=== PATIENT | male | born 1945 | race Caucasian/White ===

== ENCOUNTER 2023-01-03 10:04 | Outpatient (RCR) | payer MEDICARE, OTHER, SELFPAY ==
[2023-01-03 10:21] VITALS: BP 150/96; PULSE 63; RESP 16; TEMP 36.1; BMI 30.1
--- NOTE | 2023-01-03 10:56 | HP.PCM_ITS ---
History of Present Illness Date of Service: 01/03/23 Chief Complaint: Right foot ulceration History of Wound: Mr. Ma is a 77-year-old male with a past medical history of coronary artery disease and clean out to the right lower extremity by an outside provider. Presenting today to the wound care center [facility] with a chief complaint of right plantar foot ulceration. Patient states he had a callus to the area and then noticed drainage to his sock and now has a full- thickness ulceration. He was seen by urgent care and placed on 2 antibiotics based on culture and sensitivity. He is unfamiliar with what antibiotics he is on. He denies trauma. Denies constitutional symptoms. No other pedal complaints at this time. Progress of Wound: Mr. Ma is a 77-year-old male presenting to the wound care center today with a chief complaint of full-thickness ulceration to the right foot. Patient is unsure how the wound happened. He is on 2 antibiotics by urgent care physician. He denies treatment. Denies trauma. Denies constitutional symptoms. No other pedal complaints at this time. [facility] Home Medications albuterol 90 mcg/actuation aerosol inhaler mcg inhalation .2 puffs PRN SOB 01/03/23 [History Last Taken Unknown] amlodipine 5 mg tablet (Norvasc) 5 mg PO DAILY 01/03/23 [History Last Taken Unknown] apple cider vinegar 01/03/23 [History Last Taken Unknown] aspirin 81 mg tablet,delayed release (Adult Low Dose Aspirin) 81 mg PO DAILY 01/03/23 [History Last Taken Unknown] carvedilol 3.125 mg tablet 3.125 mg PO BID 01/03/23 [History Last Taken Unknown] cholecalciferol (vitamin D3) 1,250 mcg (50,000 unit) capsule 1,250 mcg PO QWEEK 01/03/23 [History Last Taken Unknown] dutasteride 0.5 mg capsule (Avodart) 0.5 mg PO DAILY 01/03/23 [History Last Taken Unknown] fluticasone propionate 115 mcg-salmeterol 21 mcg/actuation HFA inhaler (Advair HFA) 2 inh inhalation DAILY 01/03/23 [History Last Taken Unknown] furosemide 40 mg tablet 40 mg PO QODAY 01/03/23 [History Last Taken Unknown] pantoprazole 40 mg tablet,delayed release 40 mg PO DAILY 01/03/23 [History Last Taken Unknown] potassium chloride 10 mEq tablet,extended release(part/cryst) (Klor-Con M) 10 meq PO DAILY 01/03/23 [History Last Taken Unknown] ropinirole 2 mg tablet 2 mg PO BID 01/03/23 [History Last Taken Unknown] sour vasquez extract 1,000 mg capsule (Tart Vasquez Extract) mg PO 01/03/23 [History Last Taken Unknown] spironolactone 25 mg tablet (Aldactone) 25 mg PO DAILY 01/03/23 [History Last Taken Unknown] tamsulosin 0.4 mg capsule (Flomax) 0.4 mg PO DAILY 01/03/23 [History Last Taken Unknown] tiotropium bromide 18 mcg capsule with inhalation device (Spiriva with HandiHaler) 1 cap inhalation DAILY 01/03/23 [History Last Taken Unknown] valsartan 320 mg tablet (Diovan) 320 mg PO DAILY 01/03/23 [History Last Taken Unknown] Vital Signs Vital Signs Vital Signs: 01/03/23 10:21 Temperature 97.0 F L Temperature Source Temporal Pulse Rate 63 Respiratory Rate 16 Blood Pressure 150/96 H Blood Pressure Mean 114 Blood Pressure Source Monitor Blood Pressure Position Semi-Fowlers Blood Pressure Location Right Arm Weight Weight: 95.254 kg Body Mass Index (BMI) 30.1 Physical Exam Narrative Vascular: DP and PT pulses are monophasic on Doppler. CFT is brisk. Skin temperature is warm to warm from proximal ankle to distal digits. Not pitting edema is appreciated to the right lower extremity. Neurological: Light touch intact. Patient does not respond to painful stimuli. Protective station is diminished. Dermatological: Full-thickness ulceration appreciated to the subfifth metatarsal head measuring 1.5 x 2.0 x 0.3 cm. Wound base is granular in nature. No probe to bone. Light malodor is appreciated. No erythema or proximal streaking. Excisional debridement down to and including subcutaneous tissue with #15 blade to the subfifth metatarsal ulceration without incident. Predebridement joseph surement is 1.2 x 1.8 x 0.2 cm. Postdebridement measurement is 1.5 x 2.0 x 0.3 cm. Sanguinous drainage after debridement. Musculoskeletal: Strength is 5 and 5 in all quadrants. No pain on palpation to the full-thickness ulceration on the right foot. No pain with calf compression. Debridement Note Debridement Note Debridement Free Text: Excisional debridement down to and including subcutaneous tissue with #15 blade to the subfifth metatarsal ulceration without incident. Predebridement measurement is 1.2 x 1.8 x 0.2 cm. Postdebridement measurement is 1.5 x 2.0 x 0.3 cm. Sanguinous drainage after debridement. Post-Debridement Measurements and Additional Note: Post-Debridement Measurements/Treatment - Nurse 1 - General Ulcer Assessment Start: 01/03/23 10:20 Freq: Status: Active Protocol: [email or web address] Activity Type Activity Date Activity User E-sign Co-sign Detail Recorded Client Recorded Date Recorded By Document 01/03/23 10:21 NRL Desktop 01/03/23 10:39 NRL 01/03/23 10:21 - Today's Visit Information Type of service Initial Visit Arrival Mode Ambulatory Patient Identification Verified (Name & Yes ) Height and Weight Height 5 ft 10 in Weight 95.254 kg Weight in Pounds 210.0 lbs Weight Measurement Method Estimated by Patient Body Mass Index (BMI) 30.1 BMI Classification Obese BSA - Elysia 2.13 Vital Signs Temperature (97.8 F-99.1 F) 97.0 F L Temperature Source Temporal Pulse Rate (60-100) 63 Pulse Location Monitor Respiratory Rate (12-18) 16 Respiratory rate source Observation Blood Pressure (90/60-120/80) 150/96 H Blood Pressure Mean 114 Source Monitor Position Semi-Fowlers Blood Pressure Location Right Arm History Since Last Visit- (Skip if this is Patient's initial visit) Left Footwear Regular Shoe Right Footwear Regular Shoe Pain Scale: 0-10 Numeric Is Patient Pain Free? No Right lateral plantar -Description Dull,Throbbing, Aching -Duration (hours) Chronic -Pain Behavior No Change in Behavior Lower Extremity Assessment/ Foot Assessment/ Toe Nail Assessment Right -Posterior Tibial Palpable Yes -Posterior Tibial Doppler Multiphasic -Dorsalis Pedis Palpable Yes -Dorsalis Pedis Doppler Multiphasic -Extremity Color Hyperpigmented -Hair Growth on Legs No -Hair Growth on Toes No -Temperature of Extremity Warm -Capillary Refill Less than 3 Seconds -Blanched when Elevated Yes -Other Deformity Yes: Thickened nails -Thick Yes -Discolored Yes -Deformed No -Improper Length & Hygeine No Neuropathy Assessment Feet - Top Side and Bottom <Entered> (a) Functional Assessment Recent Decline in Ability to Perform Denies Any Declines Assistive Device With Patient No Culture/Jain/Director Of Institutional Sales Cultural/Jain Needs that may affect No Treatment Plan Teaching: Wound Center Welcome to the Wound Care Center [place] (a) 1 - + WC - Nurse 1 - General Ulcer Measurement Start: 01/03/23 10:20 Freq: Status: Active Protocol: Activity Type Activity Date Activity User E-sign Co-sign Detail Recorded Client Recorded Date Recorded By Document 01/03/23 10:21 NRL Desktop 01/03/23 10:39 NRL 01/03/23 10:21 Wound Center Nurse 1 Right lateral plantar -Combined with other wound No -Epithelialization Small 1-33% -Tunneling No -Undermining/Tunneling No -Circular Undermining No -Exudate Amt Medium -Exudate Type Yellow/Green -Wound Margin Thickened -Granulation Amt Medium (34-66%) -Granulation Quality [place] -Necrosis Amt Medium (34-66%) -Necrotic Tissue Type Adherent Slough -Structure Exposed N/A -Texture (Pat-wound Skin Appearance) Assessed -Moisture (Pat-wound Skin Appearance) Assessed -Color (Pat-wound Skin Appearance) Assessed -Temperature (Pat-wound Skin No Abnormality Appearance) (Pt Warm) -Tenderness on Palpation (Pat-wound No Skin Appearance) -Ulcer Cleansing Wound Cleanser -Foul Odor after Cleansing No -Anesthetic Used 4% Lidocaine Solution Lower Limb Edema Present Yes Right Calf (cm) 39.6 Right Ankle (cm) 24.5 Assessment/Plan Assessment/Plan (1) Non-pressure chronic ulcer of other part of right foot with fat layer exposed: CODE(S): L97.512 - Non-pressure chronic ulcer of other part of right foot with fat layer exposed PLAN: Patient was examined evaluated. All findings were discussed with the patient. All questions were answered to the patient satisfaction. Excisional debridement down to and including subcutaneous tissue with #15 blade to the subfifth metatarsal ulceration without incident. Predebridement measurement is 1.2 x 1.8 x 0.2 cm. Postdebridement measurement is 1.5 x 2.0 x 0.3 cm. Sanguinous drainage after debridement. The patient's ulceration was dressed with Betadine soaked gauze dry sterile dressing and a single layer Tubigrip. The patient will be placed in a surgical shoe with offloading pad. He is to change his dressing daily. Patient is continue taking his oral antibiotic as written by outside provider. After discussion with the patient he will be returning to [place] in 10 days. Will make all attempts to get the patient a wound care center contact information and possible establishment at the time of his arrival back to [facility]. Patient will follow-up with Dr. Gonzalez for 1 more evaluation and care in 1 week. He left the office pleased with the visit. (2) Peripheral vascular disease: CODE(S): I73.9 - Peripheral vascular disease, unspecified (3) Cellulitis: CODE(S): L03.90 - Cellulitis, unspecified QUALIFIERS: Site of cellulitis: extremity Site of cellulitis of extremity: lower extremity Laterality: right Qualified Code(s): L03.115 - Cellulitis of right lower limb (4) Idiopathic neuropathy: CODE(S): G60.9 - Hereditary and idiopathic neuropathy, unspecified
== END 2023-01-11 23:59 | disposition home or self-care (01) ==
LOC: WC 10:04
PROVIDERS: Visit Provider Podiatrist Foot & Ankle Surgery
DX: L97.512 Non-pressure chronic ulcer of other part of right foot with fat layer exposed (principal); I73.9 Peripheral vascular disease, unspecified; I25.10 Atherosclerotic heart disease of native coronary artery without angina pectoris; G62.9 Polyneuropathy, unspecified; L03.115 Cellulitis of right lower limb; G60.9 Hereditary and idiopathic neuropathy, unspecified
CPT/HCPCS: 11042; 99213; G0463

== ENCOUNTER 2023-10-30 12:56 | Emergency (ER) | payer MEDICARE, OTHER, SELFPAY ==
[2023-10-30 12:57] VITALS: BP 176/96; PULSE 111; RESP 16; TEMP 36.3; O2SAT 96; BMI 31.4
--- NOTE | 2023-10-30 14:31 | EDS_ITS ---
HPI History of Present Illness HPI Narrative: Patient presents with a wound to his left great toe that occurred 2 weeks ago. Patient states he was pushing his in a wheelchair and he hit the bottom of his left great toe on something which caused an open wound. Patient states that the skin on the plantar surface of his distal phalanx of his left great toe got caught on something and was cut off. Patient states he has been trying open wound clean for the past 2 weeks. Patient admits to some clear drainage. Patient states she had a prior laceration to his left ankle which left him with some nerve damage to his left foot. Patient denies any weakness. Patient states his pain is worse whenever he puts pressure on his left great toe. Patient states it is better with elevation. Patient denies any fevers or chills. Patient states his last tetanus was less than 5 years ago. Chief Complaint: Wound Informant: patient Occured/Mechanism Mechanism/Context: Yes direct blow Onset/Context/Timing Onset: Weeks (2) Context: Sudden Onset Timing: Continuous Quality of Pain: Sharp Location: Plantar aspect left great toe Worsened by: Weightbearing and ambulation Relieved by: Elevation Associated Symptoms Associated Symptoms: Positive for Parasthesia; Negative for Weakness or Loss of Funtion Narrative Tetanus Immunization: <5 years [facility] Medical History (Updated 10/30/23 @ 17:[address] Mario Diaz, DO) HTN (hypertension) Throat cancer COPD (chronic obstructive pulmonary disease) Home Medications ?Medication ?Instructions ?Recorded ?Last Taken ?Type albuterol 90 mcg/actuation aerosol mcg inhalation .2 puffs PRN SOB 01/03/23 Unknown History inhaler amlodipine 5 mg tablet (Norvasc) 5 mg PO DAILY 01/03/23 Unknown History apple cider vinegar 01/03/23 Unknown History aspirin 81 mg tablet,delayed 81 mg PO DAILY 01/03/23 Unknown History release (Adult Low Dose Aspirin) carvedilol 3.125 mg tablet 3.125 mg PO BID 01/03/23 Unknown History cholecalciferol (vitamin D3) 1,250 1,250 mcg PO QWEEK 01/03/23 Unknown History mcg (50,000 unit) capsule dutasteride 0.5 mg capsule 0.5 mg PO DAILY 01/03/23 Unknown History (Avodart) fluticasone propionate 115 2 inh inhalation DAILY 01/03/23 Unknown History mcg-salmeterol 21 mcg/actuation HFA inhaler (Advair HFA) furosemide 40 mg tablet 40 mg PO QODAY 01/03/23 Unknown History pantoprazole 40 mg tablet,delayed 40 mg PO DAILY 01/03/23 Unknown History release potassium chloride 10 mEq 10 meq PO DAILY 01/03/23 Unknown History tablet,extended release(part/cryst) (Klor-Con M) ropinirole 2 mg tablet 2 mg PO BID 01/03/23 Unknown History sour vasquez extract 1,000 mg mg PO 01/03/23 Unknown History capsule (Tart Vasquez Extract) spironolactone 25 mg tablet 25 mg PO DAILY 01/03/23 Unknown History (Aldactone) tamsulosin 0.4 mg capsule (Flomax) 0.4 mg PO DAILY 01/03/23 Unknown History tiotropium bromide 18 mcg capsule 1 cap inhalation DAILY 01/03/23 Unknown History with inhalation device (Spiriva with HandiHaler) valsartan 320 mg tablet (Diovan) 320 mg PO DAILY 01/03/23 Unknown History cephalexin 500 mg capsule 500 mg PO Q6 #40 CAPSULES 10/30/23 Unknown Rx Allergy/AdvReac Type Severity Reaction Status Date / Time No Known Allergies Allergy Verified 10/30/23 12:59 Surgical History (Updated 10/30/23 @ 15:[address] Mario Diaz DO) History of throat surgery Social History Smoking Status: Former smoker ROS ROS ED Constitutional Constitutional ED: Denies chills or fever(s) Eyes Eyes: Denies blurry vision or change in vision ENT ENT ED: Denies rhinorrhea or sore throat Cardiovascular Cardiovascular: Denies chest pain or palpitations Respiratory/Chest Respiratory/Chest: Denies cough or dyspnea Gastrointestinal Gastrointestinal: Denies nausea or vomiting Genitourinary Genitourinary ED: Denies dysuria or hematuria Musculoskeletal Musculoskeletal: Reports neck pain; Denies back pain Integumentary Denies abscess or rash Neurologic Neurologic: Denies headache(s) or weakness Allergic/Immunologic Allergic/Immunologic ED: Denies mouth swelling or urticaria EXAM Physical Exam Const Vital Signs: 10/30/23 12:57 Temperature 97.4 F L Temperature Source Temporal Pulse Rate 111 H Respiratory Rate 16 Blood Pressure 176/96 H Blood Pressure Mean 122 Pulse Ox 96 Oxygen Delivery Method Room Air Positive well nourished and well developed General Appearance ED: well developed and NAD HEENT Reports moist mucous membranes Neck full ROM and supple Extremity Extremity Narrative: There is a healing wound over the plantar aspect of the left great toe on the distal phalanx. There is no active discharge or drainage. There are some mild surrounding erythema. There is no warmth. There is no fluctuance. There is tenderness to palpation over the distal phalanx. There is no deformity. There is a strong pedal pulse noted. Sensation was intact to light touch in all digits. Capillary refill was less than 2 seconds in all digits. There is full range of motion of the toes and ankle. Neuro oriented x3, CN's II-XII intact bilaterally, moves all extremities and no sensory deficits noted Sensorium / Orientation: alert Motor Exam: strength 5/5 throughout Psych mental status grossly normal MDM MDM MDM Narrative Medical decision making narrative: Differential diagnosis includes infected wound, osteomyelitis, sepsis, and cellulitis. X-rays of the left foot will be obtained to assess for osteomyelitis. CBC will be obtained to assess for leukocytosis and anemia. Basic metabolic profile will be obtained to assess for electrolyte abnormality and renal function. Lactate will be obtained to assess for sepsis. Sed rate and CRP will be obtained to assess for inflammatory markers. Blood cultures will be obtained to assess for sepsis. Lab Data Attestation: I reviewed the patient's lab results. Lab results narrative: CBC was reviewed and was within normal limits. Basic metabolic profile was reviewed and was essentially within normal limits. Sed rate was mildly elevated at 25. C-reactive protein was slightly elevated at 37.4. Lactate was normal at 1.5. Labs: Laboratory Results - last 24 hr 10/30/23 15:20 WBC 9.2 RBC 4.39 L Hgb 13.1 Hct 41.9 MCV 95.4 H MCH 29.8 MCHC 31.3 L RDW Std Deviation 47.7 H RDW Coeff of Krista 13.5 Plt Count 224 MPV 11.1 Immature Gran % (Auto) 0.400 Neut % (Auto) 80.1 H Lymph % (Auto) 11.8 L [place] % (Auto) 7.0 Eos % (Auto) 0.3 Baso % (Auto) 0.4 Absolute Neuts (auto) 7.4 Absolute Lymphs (auto) 1.09 Nucleated RBC % 0 ESR 25 H Sodium 142 Potassium 4.1 Chloride 111 H Carbon Dioxide 28.0 Anion Gap 3 L BUN 25 H Creatinine 1.11 Estim Creat Clear Calc 66.92 Est GFR (MDRD) Af Amer 83 Est GFR (MDRD) Non-Af 68 BUN/Creatinine Ratio 22.5 H Glucose 113 H Lactic Acid 1.5 Calcium 9.3 C-React Prot Ext Range 37.40 H Radiography Diagnostic Testing: Clinical Impression(s) from Imaging Studies Foot X-Ray 10/30/23 16:15 IMPRESSION: Soft tissue ulceration of the distal great toe without definitive evidence for acute osteomyelitis Electronically Signed: Ken Grant MD at 16:30 EDT , X-rays of the left foot were obtained. There are 3 views. On my independent interpretation, there is no acute fracture. There is no evidence of osteomyelitis or gas formation. Radiologist also interpreted the x-rays and agrees. Treatment and Re-Evaluation Narrative: Patient was given a dose of Unasyn here. Patient was advised of his findings. Patient was instructed to keep the wound clean. Patient was given an Adaptic dressing. Patient was instructed to follow-up with his primary care physician in 5 to 7 days. Patient states he is visiting from out of town. Patient states he will follow-up with a rehab manager when he gets back home. Patient was given a prescription for Keflex. Patient was instructed to return if worse in any way. Patient understood and was agreeable with the plan. All questions were answered. Discharge Plan Triage Chief Complaint: Wound ED Provider: Mario Diaz Dx/Rx/DC Orders Clinical Impression: Open wound of left great toe, Cellulitis Instructions: ED Cellulitis, ED Wound Care Prescriptions: New cephalexin 500 mg capsule 500 mg PO Q6 Qty: 40 0RF No Action ropinirole 2 mg tablet 2 mg PO BID amlodipine [Norvasc] 5 mg tablet 5 mg PO DAILY valsartan [Diovan] 320 mg tablet 320 mg PO DAILY pantoprazole 40 mg tablet,delayed release (DR/EC) 40 mg PO DAILY carvedilol 3.125 mg tablet 3.125 mg PO BID Rx Instructions: must administer with a meal/food potassium chloride [Klor-Con M10] 10 mEq tablet,ER particles/crystals 10 meq PO DAILY tiotropium bromide [Spiriva with HandiHaler] 18 mcg capsule, w/inhalation device 1 cap inhalation DAILY Rx Instructions: puncture 1 cap using device; one dose = 2 inhalations fluticasone propion-salmeterol [Advair HFA] 115-21 mcg/actuation HFA aerosol inhaler 2 inh inhalation DAILY albuterol 90 mcg/actuation aerosol inhalation .2 puffs PRN (Reason: SOB) cholecalciferol (vitamin D3) 1,250 mcg (50,000 unit) capsule 1,250 mcg PO QWEEK dutasteride [Avodart] 0.5 mg capsule 0.5 mg PO DAILY Tart Vasquez Extract 1,000 mg capsule PO tamsulosin [Flomax] 0.4 mg capsule 0.4 mg PO DAILY furosemide 40 mg tablet 40 mg PO QODAY spironolactone [Aldactone] 25 mg tablet 25 mg PO DAILY aspirin [Adult Low Dose Aspirin] 81 mg tablet,delayed release (DR/EC) 81 mg PO DAILY apple cider vinegar 450 mg capsule Primary Care Provider: EWELINA HWANG Referrals: [facility] Doctor,Out of [Non-Staff] - 5-7 Days Print Language: Telugu Disposition Disposition: Home, Self Care
[2023-10-30] MEDS: Ampicillin/Sulbactam 3 GM in 0.9% Normal Saline (100mL MB+) 100 ML IV (15:33)
[2023-10-30 15:38] LABS: Absolute Lymphocyte Count 1.09 X10^3/uL (0.83-4.51); Absolute Neutrophil Count 7.4 X10^3/uL (2.0-7.7); Basophil# 0.04 X10^3/uL; Basophil% 0.4 % (0-1); Eosinophil# 0.03 X10^3/uL; Eosinophils% 0.3 % (0-5); Hematocrit 41.9 % (40-54); Hemoglobin 13.1 g/dL (13.0-16.5); Lymphocyte # 1.09 X10^3/ul (0.83-4.51); Lymphocyte % 11.8 % (19-41); Mean Corp Hgb Conc 31.3 g/dL (32-36); Mean Corpuscular Hgb 29.8 pg (27.0-32.0); Mean Corpuscular Volume 95.4 fL (80-94); Mean Platelet Vol. 11.1 fl (6.2-12.0); Monocyte# 0.65 X10^3/uL; NRBC Flagged by Analyzer 0 % (0-5); Neutrophil # 7.39 X10^3/uL (2.7-7.7); Neutrophil % 80.1 % (47-70); Platelet Count 224 K/mm3 (150-450); RBC Distribution Width CV 13.5 % (11.6-14.6); RBC Distribution Width SD 47.7 fl (35.1-43.9); Red Blood Count 4.39 M/mm3 (4.6-6.2); White Blood Count 9.2 K/mm3 (4.4-11.0)
[2023-10-30 15:57] LABS: Anion Gap 3 (5-15); BUN 25 mg/dL (7-18); BUN/Creat Ratio 22.5 RATIO (10-20); Calcium,Total 9.3 mg/dL (8.5-10.1); Chloride 111 mmol/L (98-107); Creatinine, Serum 1.11 mg/dL (0.70-1.30); EST Glomerular Filtration Rate 68 mL/min (>60); Est Glom Filt Rate - Afr Amer 83 mL/min (>60); Estimated Creatinine Clearance 66.92 ml/min; Glucose 113 mg/dL (74-106); Potassium 4.1 mmol/L (3.5-5.1); Sodium Level 142 mmol/L (136-145)
[2023-10-30 16:13] LABS: Lactic Acid 1.5 mmol/L (0.4-1.9)
--- NOTE | 2023-10-30 16:15 | RAD_ITS ---
STUDY: X-RAY - LEFT FOOT CLINICAL: Male, 78 years old. Injury/Pain TECHNIQUE: 3 view(s) of the foot. COMPARISON: None. FINDINGS: Normal talus, calcaneus, and tarsal bones. Normal visualized subtalar, talonavicular, calcaneocuboid, tarsal and tarsometatarsal articulations. Normal metatarsi. Normal metatarsophalangeal joint of the great toe. Normal tibial and fibular sesamoid bones. Normal interphalangeal joint of the great toe. Normal phalanges of the great toe. Normal second through fifth metatarsophalangeal joints. Normal interphalangeal joints and phalanges of the lesser toes. Soft tissue ulceration of the distal great toe. RAD/Foot min 3 Views IMPRESSION: Soft tissue ulceration of the distal great toe without definitive evidence for acute osteomyelitis Electronically Signed: Ken Grant MD at 16:30 EDT ,
[2023-10-30 16:25] LABS: Erythrocyte Sedimentation Rate 25 mm/hr (0-20)
[2023-10-30 16:56] VITALS: BP 165/95; PULSE 72; RESP 18; TEMP 36.8; O2SAT 94
== END 2023-10-30 17:28 | disposition home or self-care (01) ==
PROVIDERS: Emergency Provider Emergency Medicine; Visit Provider Emergency Medicine
DX: S91.102A Unspecified open wound of left great toe without damage to nail, initial encounter (principal); J44.9 Chronic obstructive pulmonary disease, unspecified; Z87.891 Personal history of nicotine dependence; I10 Essential (primary) hypertension; L03.031 Cellulitis of right toe; X58.XXXA Exposure to other specified factors, initial encounter
CPT/HCPCS: 73630; 80048; 83605; 85025; 85652; 86140; 96365; 99284; A4216; J0295

== ENCOUNTER → 2024-10-23 | Outpatient (CLI) | payer MEDICARE, OTHER, SELFPAY ==
[2024-10-23 16:32] LABS: Hematocrit 40.6 % (40-54); Hemoglobin 13.4 g/dL (13.0-16.5); Immature Granulocytes Count 0.050 X10^3/uL (0.0-0.0); Mean Corp Hgb Conc 33.0 g/dL (32-36); Mean Corpuscular Volume 94.2 fL (80-94); Mean Platelet Vol. 11.2 fl (6.2-12.0); NRBC Flagged by Analyzer 0 % (0-5); Platelet Count 154 K/mm3 (150-450); RBC Distribution Width CV 14.1 % (11.6-14.6); RBC Distribution Width SD 48.2 fl (35.1-43.9); Red Blood Count 4.31 M/mm3 (4.6-6.2); White Blood Count 8.4 K/mm3 (4.4-11.0)
[2024-10-23 17:22] LABS: AST(SGOT) 24 U/L (<=37); Alanine Aminotransfer ALT/SGPT 18 U/L (<=46); Albumin, Serum 4.0 g/dL (3.4-4.8); Alkaline Phosphatase 122 U/L (40-129); Anion Gap 11 (5-15); BUN 16 mg/dL (4-19); BUN/Creat Ratio 16.6 RATIO (10-20); Calcium,Total 9.1 mg/dL (7.6-11.0); Carbon Dioxide 25.9 mmol/L (21.0-32.0); Chloride 106 mmol/L (98-108); Cholesterol 82 mg/dL (<=200); Globulin 3.0 g/dL (2.2-4.2); Glucose 95 mg/dL (70-99); Hepatitis C Antibody Nonreactive (Nonreactive); Low Density Lipoprotein Calc. 22 mg/dL; Potassium 3.9 mmol/L (3.3-5.1); Triglycerides 90 mg/dL; Uric Acid 8.2 mg/dL (3.5-7.2); Very Low Density Lipoprotein 18 mg/dL (5-40); Vitamin D,25 Hydroxy 31.7 ng/mL (30-100); cholesterol:hdl ratio screen 1.95
[2024-10-24 00:09] LABS: Xtra Tube Kwok EXTRA TUBE
--- NOTE | 2024-10-24 15:29 | PCM.WC.HP ---
History of Present Illness Date of Service: 10/21/24 Chief Complaint: Diabetic ulceration of the left great toe History of Wound: The patient is seen on behalf of Dr. Ntahen Gonzalez, Podiatric specialist, who is the patient's regular Wound Center provider. Patient's history has been previously documented by Dr. Gonzalez. He is under treatment for an ulceration of the plantar aspect of the left great toe. He is a known diabetic, and has a history of myocardial infarction and congestive heart failure. He denies a history of cerebrovascular accident, pulmonary disease, renal disease, thyroid disease, and hyperlipidemia. The patient is not currently a smoker, but formerly smoked 1 pack of cigarettes per day for approximately 45 years. 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 He has a history of peripheral arterial occlusive disease, and indicates that 2 vascular stents have been placed in his right lower extremity, and 1 in his left lower extremity. The patient is ambulatory, but suffers from classic symptoms of intermittent claudication at short distances of ambulation. With 2 blocks of ambulation, the patient experiences calf pain, which is typically relieved by rest. Current management involves the use of Betadine topically to his left great toe ulceration. [facility] Medical History Diabetic foot ulcer associated with type 2 diabetes mellitus Polyneuropathy Intermittent claudication History of myocardial infarction Coronary artery disease History of throat cancer Non-pressure chronic ulcer of other part of left foot with fat layer exposed HTN (hypertension) Throat cancer COPD (chronic obstructive pulmonary disease) Home Medications ?Medication ?Instructions ?Recorded ?Last Taken ?Type albuterol 90 mcg/actuation aerosol mcg inhalation .2 puffs PRN SOB 01/03/23 Unknown History inhaler amlodipine 5 mg tablet (Norvasc) 5 mg PO DAILY 01/03/23 Unknown History aspirin 81 mg tablet,delayed 81 mg PO DAILY 01/03/23 Unknown History release (Adult Low Dose Aspirin) carvedilol 3.125 mg tablet 3.125 mg PO BID 01/03/23 Unknown History cholecalciferol (vitamin D3) 1,250 1,250 mcg PO QWEEK 01/03/23 Unknown History mcg (50,000 unit) capsule dutasteride 0.5 mg capsule 0.5 mg PO DAILY 11/22/23 Unknown History (Avodart) fluticasone propionate 115 2 inh inhalation DAILY 01/03/23 Unknown History mcg-salmeterol 21 mcg/actuation HFA inhaler (Advair HFA) furosemide 40 mg tablet 40 mg PO QODAY 01/03/23 Unknown History pantoprazole 40 mg tablet,delayed 40 mg PO DAILY 01/03/23 Unknown History release potassium chloride 10 mEq 10 meq PO DAILY 01/03/23 Unknown History tablet,extended release(part/cryst) (Klor-Con M) ropinirole 2 mg tablet 2 mg PO BID 01/03/23 Unknown History sour vasquez extract 1,000 mg mg PO gout 01/03/23 Unknown History capsule (Tart Vasquez Extract) spironolactone 25 mg tablet 25 mg PO DAILY 01/03/23 Unknown History (Aldactone) tamsulosin 0.4 mg capsule (Flomax) 0.4 mg PO DAILY 01/03/23 Unknown History tiotropium bromide 18 mcg capsule 1 cap inhalation DAILY 01/03/23 Unknown History with inhalation device (Spiriva with HandiHaler) cephalexin 500 mg capsule 500 mg PO Q6 #40 CAPSULES 10/30/23 Unknown Rx sacubitril 24 mg-valsartan 26 mg 1 tab PO BID 10/15/24 Unknown History tablet (Entresto) Allergy/AdvReac Type Severity Reaction Status Date / Time No Known Allergies Allergy Verified 10/30/23 12:59 Surgical History History of throat surgery Social History Smoking Status: Former smoker Physical Exam Const alert, oriented x3, no apparent distress, no limitations and well nourished General Appearance: cooperative, comfortable and well developed Orientation / Consciousness: awake, oriented to person, oriented to place and oriented to time HEENT normocephalic and head/scalp atraumatic Head and Scalp: normal to inspection, normocephalic and atraumatic Nose: external nose normal External Ear: external ears normal Eyes EOMs intact bilaterally General Eye: normal appearance of both eyes Resp normal respiratory effort, normal air movement, no retractions and no use of accessory muscles Effort and Inspection: able to speak in complete sentences Extremity no calf tenderness General Extremity: Negative for clubbing or cyanosis Skin Wound Narrative: The distal aspect of the patient's left second toe is noted to be absent. There appears to have been a prior amputation of the distal aspect of the patient's left great toe. The plantar aspect of the remaining left hallux reveals the presence of an ulceration. Dimensions are documented elsewhere. A small amount of callus is noted peripherally. The ulcer extends through all layers of the dermis and into the subcutaneous tissues. Ulcer margins are moderately beveled. The ulceration appears somewhat desiccated. The base of the ulceration demonstrates a moderate amount of bioburden and nonviable tissue. Neuro oriented x3, CN's II-XII intact bilaterally, moves all extremities and no focal motor deficits Sensorium / Orientation: awake, alert, oriented to person, oriented to place and oriented to time Speech: speech normal Psych Appearance: grossly normal and appropriate Attitude: calm Activity / Motor Behavior: appropriate eye contact Speech: normal speech Mood & Affect: euthymic mood Thought Process: normal thought process Thought Content: normal thought content Attention / Concentration: attention grossly intact Debridement Note Debridement Note Wound debrided: Ulceration of the plantar surface of the left hallux Laterality: Left Wound Grade/Stage: Joshi grade 2 Type of Debridement: Excisional debridement Anesthesia Used: 5% Lidocaine Gel Depth: Down to and including healthy tissue and in the subcutaneous layer Percentage of wound debrided: 100 Instrument Used: 3mm curette Tissue Removed: Bioburden and nonviable tissue Severity: Fat Layer Exposed Amount of bleeding with debridement: Mild Bleeding Controlled with: Compression and gauze Patient tolerated procedure: Patient tolerated procedure well Lab / Micro Data 10/23/24 16:05 10/23/24 16:05 Labs: Laboratory Results - last 24 hr 10/23/24 16:05: WBC 8.4, RBC 4.31 L, Hgb 13.4, Hct 40.6, MCV 94.2 H, MCH 31.1, MCHC 33.0, RDW Std Deviation 48.2 H, RDW Coeff of Krista 14.1, Plt Count 154, MPV 11.2, Immature Gran % (Auto) 0.600, Neut % (Auto) 68.4, Lymph % (Auto) 21.7, [place] % (Auto) 7.9, Eos % (Auto) 1.3, Baso % (Auto) 0.1, Absolute Neuts (auto) 5.7, Absolute Lymphs (auto) 1.82, Nucleated RBC % 0, Sodium 144, Potassium 3.9, Chloride 106, Carbon Dioxide 25.9, Anion Gap 11, BUN 16, Creatinine 0.99, Est GFR (MDRD) Non-Af 79, BUN/Creatinine Ratio 16.6, Glucose 95, Uric Acid 8.2 H, Calcium 9.1, Total Bilirubin 0.64, AST 24, ALT 18, Alkaline Phosphatase 122, Total Protein 7.0, Albumin 4.0, Globulin 3.0, Albumin/Globulin Ratio 1.3, Triglycerides 90, Cholesterol 82, LDL Cholesterol, Calc 22, VLDL Cholesterol 18, HDL Cholesterol 42, Cholesterol/HDL Ratio 1.95, Vitamin D 25-Hydroxy 31.7, TSH 0.866, Hepatitis C Antibody Nonreactive Charges/Coding Multi Select Codes Visit Charges Office Visit/Consults: 34508 OV L4 New 45 min Integumentary Integumentary CPT Codes: 65330 Gina subq tissue 20 sq cm/< Assessment/Plan Assessment/Plan (1) Non-pressure chronic ulcer of other part of left foot with fat layer exposed: CODE(S): L97.522 - Non-pressure chronic ulcer of other part of left foot with fat layer exposed (2) Diabetic foot ulcer associated with type 2 diabetes mellitus: CODE(S): E11.621 - Type 2 diabetes mellitus with foot ulcer; L97.509 - Non-pressure chronic ulcer of other part of unspecified foot with unspecified severity QUALIFIERS: Diabetic foot ulcer location: toe Laterality: left Non-pressure ulcer stage: with fat layer exposed Qualified Code(s): E11.621 - Type 2 diabetes mellitus with foot ulcer; L97.522 - Non-pressure chronic ulcer of other part of left foot with fat layer exposed (3) Intermittent claudication: CODE(S): I73.9 - Peripheral vascular disease, unspecified (4) Peripheral vascular disease: CODE(S): I73.9 - Peripheral vascular disease, unspecified (5) Polyneuropathy: CODE(S): G62.9 - Polyneuropathy, unspecified (6) COPD (chronic obstructive pulmonary disease): CODE(S): J44.9 - Chronic obstructive pulmonary disease, unspecified (7) History of throat cancer: CODE(S): Z85.819 - Personal history of malignant neoplasm of unspecified site of lip, oral cavity, and pharynx (8) Coronary artery disease: CODE(S): I25.10 - Atherosclerotic heart disease of [place] coronary artery without angina pectoris (9) History of myocardial infarction: CODE(S): I25.2 - Old myocardial infarction PLAN: Plan This is a 79-year-old male with a history of diabetes mellitus, treated at the [facility] wound center for a diabetic foot ulceration on the plantar aspect of his left hallux. He has been previously treated at [facility] in [place], [place]. Previous medical records are to be requested. Patient appears to have a history of peripheral arterial occlusive disease, as he relates having had stents placed in the arterial system of both lower extremities. Discussion with the patient also indicates that he suffers from symptoms of intermittent claudication, experiencing pain in both calves with short distances of ambulation, which is typically relieved by rest. We are to implement the use of collagen hydrogel topically to the ulceration on the left hallux. This is to be applied on a daily basis. The patient has been instructed the appropriate means of application. Upon examination today, the ulceration appears somewhat desiccated, and it is hoped that the collagen hydrogel will provide a moist wound healing environment. The patient also indicates that he has a vein problem. He has been encouraged to sleep on a flat surface at night. Activity has been encouraged. Prolonged idle sitting has been discouraged. The patient has been encouraged to optimize his nutritional intake. He has been encouraged to collaborate with his primary care physician to ensure good control of his diabetes mellitus. Current records did not indicate a recent hemoglobin A1c. Evaluation of the patient's lower extremity arterial status is to be undertaken. Because of the presence of stents in his lower extremity arterial tree, we will forego a standard noninvasive lower extremity arterial study. Instead, we are to obtain an arterial ultrasound of the arterial system in the left lower extremity to determine whether any significant stenotic lesions are apparent. Radiographs of the left foot performed on October 20, 2024, have been reviewed. Results indicate no osseous destructive changes seen to suggest the presence of osteomyelitis. The patient is to return in 1 week for reevaluation by Dr. Gonzalez. Total time: 48 minutes
== END | disposition home or self-care (01) ==
LOC: POLAB3 16:04
PROVIDERS: PCP Family Medicine Geriatric Medicine; Visit Provider Family Medicine Geriatric Medicine
DX: Z13.89 Encounter for screening for other disorder (principal); E78.5 Hyperlipidemia, unspecified; R53.83 Other fatigue; E03.9 Hypothyroidism, unspecified; M10.9 Gout, unspecified; E55.9 Vitamin D deficiency, unspecified
CPT/HCPCS: 36415; 80053; 80061; 82306; 84443; 84550; 85025; 86803

== ENCOUNTER 2024-11-05 08:45 | Outpatient (RCR) | payer MEDICARE, OTHER, SELFPAY ==
[2024-10-15 13:57] VITALS: BP 144/74; PULSE 85; RESP 18; TEMP 36.8; BMI 30.1
--- NOTE | 2024-10-15 15:21 | PCM.WC.HP ---
History of Present Illness Date of Service: 10/15/24 Chief Complaint: Right foot ulceration History of Wound: Mr. Ma is a 77-year-old male with a past medical history of coronary artery disease and clean out to the right lower extremity by an outside provider. Presenting today to the wound care center [facility] with a chief complaint of right plantar foot ulceration. Patient states he had a callus to the area and then noticed drainage to his sock and now has a full-thickness ulceration. He was seen by urgent care and placed on 2 antibiotics based on culture and sensitivity. He is unfamiliar with what antibiotics he is on. He denies trauma. Denies constitutional symptoms. No other pedal complaints at this time. 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 [facility] Medical History HTN (hypertension) Throat cancer COPD (chronic obstructive pulmonary disease) Home Medications ?Medication ?Instructions ?Recorded ?Last Taken ?Type albuterol 90 mcg/actuation aerosol mcg inhalation .2 puffs PRN SOB 01/03/23 Unknown History inhaler amlodipine 5 mg tablet (Norvasc) 5 mg PO DAILY 01/03/23 Unknown History aspirin 81 mg tablet,delayed 81 mg PO DAILY 01/03/23 Unknown History release (Adult Low Dose Aspirin) carvedilol 3.125 mg tablet 3.125 mg PO BID 01/03/23 Unknown History cholecalciferol (vitamin D3) 1,250 1,250 mcg PO QWEEK 01/03/23 Unknown History mcg (50,000 unit) capsule dutasteride 0.5 mg capsule 0.5 mg PO DAILY 01/03/23 Unknown History (Avodart) fluticasone propionate 115 2 inh inhalation DAILY 01/03/23 Unknown History mcg-salmeterol 21 mcg/actuation HFA inhaler (Advair HFA) furosemide 40 mg tablet 40 mg PO QODAY 01/03/23 Unknown History pantoprazole 40 mg tablet,delayed 40 mg PO DAILY 01/03/23 Unknown History release potassium chloride 10 mEq 10 meq PO DAILY 01/03/23 Unknown History tablet,extended release(part/cryst) (Klor-Con M) ropinirole 2 mg tablet 2 mg PO BID 01/03/23 Unknown History sour vasquez extract 1,000 mg mg PO gout 01/03/23 Unknown History capsule (Tart Vasquez Extract) spironolactone 25 mg tablet 25 mg PO DAILY 01/03/23 Unknown History (Aldactone) tamsulosin 0.4 mg capsule (Flomax) 0.4 mg PO DAILY 01/03/23 Unknown History tiotropium bromide 18 mcg capsule 1 cap inhalation DAILY 01/03/23 Unknown History with inhalation device (Spiriva with HandiHaler) cephalexin 500 mg capsule 500 mg PO Q6 #40 CAPSULES 10/30/23 Unknown Rx sacubitril 24 mg-valsartan 26 mg 1 tab PO BID 10/15/24 Unknown History tablet (Entresto) Allergy/AdvReac Type Severity Reaction Status Date / Time No Known Allergies Allergy Verified 10/30/23 12:59 Surgical History (Updated 10/30/23 @ 15:[address] Mario Diaz DO) History of throat surgery Social History Smoking Status: Former smoker Vital Signs Vital Signs Vital Signs: 10/15/24 13:57 Temperature 98.2 F Temperature Source Temporal Pulse Rate 85 Respiratory Rate 18 Blood Pressure 144/74 H Blood Pressure Mean 97 Blood Pressure Source Monitor Weight Weight: 95.254 kg Body Mass Index (BMI) 30.1 Physical Exam Narrative Vascular: DP and PT pulses palpable. CFT brisk. No erythema or proximal streaking. Skin temperature is warm to warm with no focal increase. Neurologic: Light touch is intact. Protective sensation is absent. 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 Full-thickness wound to the plantar aspect left hallux measuring 0.8 x 0.8 x 0.2 cm. Wound base is granular with no signs of infection. Excisional debridement down to including subcutaneous tissue with number 3 mm dermal curette to the full-thickness wound to plantar aspect of left hallux done without incident. Predebridement measurement was 0.5 x 0.5 x 0.1 cm. Postdebridement measurement is 0.8 x 0.8 x 0.2 cm. Musculoskeletal: Decreased range of motion to the first metatarsal phalangeal joint to the left foot. No pain on palpation to the full-thickness wound to plantar aspect of the left great toe. No pain with calf pressure. Debridement Note Debridement Note Debridement Free Text: Excisional debridement down to including subcutaneous tissue with number 3 mm dermal curette to the full-thickness wound to plantar aspect of left hallux done without incident. Predebridement measurement was 0.5 x 0.5 x 0.1 cm. Postdebridement measurement is 0.8 x 0.8 x 0.2 cm. Post-Debridement Measurements and Additional Note: Post-Debridement Measurements/Treatment - Nurse 1 - General Ulcer Assessment Start: 10/15/24 13:57 Freq: Status: Active Protocol: LOWEXAusten Activity Type Activity Date Activity User E-sign Co-sign Detail Recorded Client Recorded Date Recorded By Document 10/15/24 13:57 DL [id number] 10/15/24 14:19 DL 10/15/24 13:57 - Today's Visit Information Type of service Initial Visit Arrival Mode Ambulatory Transfer Assistance None Patient Identification Verified (Name & Yes ) Patient Requires Transmission-Based No Precautions Safety Precautions NA Height and Weight Height 5 ft 10 in Weight 95.254 kg Weight in Pounds 210.0 lbs Body Mass Index (BMI) 30.1 BMI Classification Obese Vital Signs Temperature (97.8 F-99.1 F) 98.2 F Temperature Source Temporal Pulse Rate (60-100) 85 Pulse Location Monitor Respiratory Rate (12-18) 18 Respiratory rate source Observation Blood Pressure (90/60-120/80) 144/74 H Blood Pressure Mean 97 Source Monitor Pain Scale: 0-10 Numeric Is Patient Pain Free? Yes Lower Extremity Assessment/ Foot Assessment/ Toe Nail Assessment Left -Posterior Tibial Palpable No -Dorsalis Pedis Palpable No -Extremity Color Hemosiderin -Hair Growth on Legs No -Hair Growth on Toes No -Capillary Refill Greater than 3 Seconds -Dependent Rubor No -Blanched when Elevated No -Lipodermatosclerosis No -Other Deformity Yes -Prior Foot Ulcer Yes -Charcot Joint No -Prior Amputation Yes -Thick Yes -Discolored Yes -Deformed Yes -Improper Length & Hygeine No Right -Posterior Tibial Palpable No -Dorsalis Pedis Palpable Yes -Extremity Color Hemosiderin -Hair Growth on Legs No -Hair Growth on Toes No -Temperature of Extremity Warm -Capillary Refill Greater than 3 Seconds -Dependent Rubor No -Blanched when Elevated No -Lipodermatosclerosis No -Other Deformity No -Prior Foot Ulcer No -Charcot Joint No -Prior Amputation No -Thick Yes -Discolored Yes -Deformed Yes -Improper Length & Hygeine No WC - Nurse 1 - General Ulcer Measurement Start: 10/15/24 13:57 Freq: Status: Active Protocol: Activity Type Activity Date Activity User E-sign Co-sign Detail Recorded Client Recorded Date Recorded By Document 10/15/24 13:57 ALYSON [id number] 10/15/24 14:19 DL 10/15/24 13:57 Wound Center Nurse 1 #2 L Grt Toe Plantar -Current Size (cm) - Length 0.5 -Current Size (cm) - Width 0.5 -Current Size (cm) - Depth 0.3 -Total Square Cm 0.25 -Photo Taken Yes -Classification - Thickness Full Thickness without Exposed Support Structure -Exudate Amt Small -Exudate Type Serosanguineous -Wound Margin Thickened -Granulation Amt Small (1-33%) -Granulation Quality [place] -Necrosis Amt None Present (0 %) -Structure Exposed N/A -Texture (Pat-wound Skin Appearance) Callus,Scarring -Moisture (Pat-wound Skin Appearance) Dry/Scaly -Color (Pat-wound Skin Appearance) No Abnormality -Temperature (Pat-wound Skin No Abnormality Appearance) (Pt Warm) -Tenderness on Palpation (Pat-wound No Skin Appearance) -Ulcer Cleansing Rinsed/ Irrigated with Saline -Foul Odor after Cleansing No -Anesthetic Used 5% Lidocaine Gel - Nurse 2 - General Ulcer CM Notes Start: 10/15/24 13:57 Freq: Status: Active Protocol: Activity Type Activity Date Activity User E-sign Co-sign Detail Recorded Client Recorded Date Recorded By Document 10/15/24 14:57 JEANNA [id number] 10/15/24 14:59 10/15/24 14:57 Wound Center Nurse 2 -Time 14:58 -Correct Patient Yes -Correct Side, Site, Position Yes -Correct Procedure Yes -Procedure Performed Yes -Type of Procedure Debridement -Clinical Debridement Subcutaneous -Tissue Removed Subcutaneous -Post Debridement (cm) - Length 0.8 -Post Debridement (cm) - Width 0.8 -Post Debridement (cm) - Depth 0.2 -Total Square (Post) (cm) 0.64 -Area of Debridement (cm) - Length 0.8 -Area of Debridement (cm) - Width 0.8 -Total Square (Area) (cm) 0.64 -Tunneling No -Undermining/Tunneling No -Circular Undermining No -Wound/Ulcer Outcome Not Healed -Ulcer Cleansing Rinsed/ Irrigated with Saline -Foul Odor after Cleansing No -Bioengineered Tissue No -Bleeding Controlled with Pressure -Treatment Response Procedure Tolerated Well -Offloading No -Debridement - Subq, 1st 20sq cm Yes Pain Scale: 0-10 Numeric Is Patient Pain Free? Yes - Nurse 3 - General Ulcer D/C NN Start: 10/15/24 13:57 Freq: Status: Active Protocol: Activity Type Activity Date Activity User E-sign Co-sign Detail Recorded Client Recorded Date Recorded By Document 10/15/24 15:13 [facility] [id number] 10/15/24 15:14 [facility] 10/15/24 15:13 Wound Care Center Nurse 3 #2 L Grt Toe Plantar -Other Dressing betadine, bandaid -Other Covering drsg per dl capture manager BLE -Tubular Bandage Single Layer -Size of Tubigrip Used Size D -Size D ($) 2 Treatment Response Procedure Tolerated Well Pain Scale: 0-10 Numeric Is Patient Pain Free? Yes WC - Visit Discharge Discharge Condition Stable Ambulatory Status Ambulatory Transportation Private Auto Accompanied by Assessment/Plan Assessment/Plan (1) Pain in left foot: CODE(S): M79.672 - Pain in left foot PLAN: Patient was examined and evaluated. All findings were discussed with the patient. All questions were answered to the patient's satisfaction. Excisional debridement down to including subcutaneous tissue with number 3 mm dermal curette to the full-thickness wound to plantar aspect of left hallux done without incident. Predebridement measurement was 0.5 x 0.5 x 0.1 cm. Postdebridement measurement is 0.8 x 0.8 x 0.2 cm. Area was wiped clean and patted dry. There is no concern for infection. Betadine paint sterile Band-Aid was applied. Patient will change daily. Patient was given an order for x-rays to make sure that there is no bone spurs or concern for bone infection due to the wound being open for a few months.. Patient's son states that his blood sugars well-controlled. I did educate the patient that the decreased range of motion of the big toe joint to the left foot is the likely cause for his wound. 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 Patient was understanding of this. Patient will continue strict blood sugar control. Patient will follow-up in 1 week (2) Non-pressure chronic ulcer of other part of left foot with fat layer exposed: CODE(S): L97.522 - Non-pressure chronic ulcer of other part of left foot with fat layer exposed (3) Acute painful diabetic polyneuropathy: CODE(S): E11.42 - Type 2 diabetes mellitus with diabetic polyneuropathy
--- NOTE | 2024-10-16 10:10 | WC ---
PHOTO- LEFT GREAT TOE PLANTAR 10/15/24
--- NOTE | 2024-10-20 09:18 | RAD_ITS ---
PROCEDURE: FOOT MIN 3 VIEWS 10/20/2024 REASON FOR EXAM: ULCER LEFT FOOT TECHNIQUE: Procedure Code: RADFO Modality: DX Procedure: FOOT MIN 3 VIEWS Laterality: Left COMPARISON: Left foot study of 10/30/2023. RAD/Foot min 3 Views IMPRESSION: Interval amputation of the 2nd toe of the proximal shaft of the proximal phalan x noted. 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 Flattening of the 2nd metatarsal head noted with partial joint narrowing; diffe rential diagnosis includes osteonecrosis posttraumatic change. Erosive change in the lateral head of the 3rd metatarsal bone noted, with mild degenerative changes seen of the metatarsophalangeal joint [id number] degenerative changes seen of the 1st metatarsal head. Mild degenerative changes are seen throughout the midfoot and the remaining toe s. No acute fracture or dislocation is seen. No osseous destructive change is seen to suggest the presence of osteomyelitis. Follow up imaging if and as clinically appropriate. Reading Location: [place] [id number]
[2024-10-21 10:02] VITALS: BP 170/108; PULSE 80; RESP 16; TEMP 36.7; BMI 30.1
--- NOTE | 2024-10-22 09:33 | WC ---
PHOTO-LEFT PLANTAR 10/21/24
[2024-10-29 08:12] VITALS: BP 183/104; PULSE 62; RESP 18; TEMP 37.1; BMI 30.1
[2024-10-29 08:21] VITALS: BP 175/99; BMI 30.1
--- NOTE | 2024-10-29 09:20 | ADUL_ITS ---
Reason For Study Reason For Study: PAD Left Velocities Ext Iliac Artery, dist = 97.5 cm./sec. Common Femoral Artery, mid = 107.3 cm./sec. Supf. Femoral Artery, prox = 319.5 cm./sec. Supf. Femoral Artery, mid = 140.3 cm./sec. SFA distal, prox to stent, 160.4 cm/sec. SFA distal, prox stent, 119 cm/sec. Anatoly prox, mid stent, 92 cm/sec. Anatoly mid, distal stent, 92 cm/sec. Anatoly distal, distal to stent, 85.4 cm/sec. Profunda Femoral Artery = 94.2 cm./sec. Post. Tibial Artery, prox = 103 cm./sec. Post Tibial Artery, mid = 174.7 cm./sec. Post Tibial Artery, dist. = 117.7 cm./sec. Peroneal Artery, prox = 35.5 cm./sec. Peroneal Artery, mid = 33.6 cm./sec. Peroneal Artery,dist. = 42.1 cm./sec. Ant.Tibial Artery, prox = 132.3 cm./sec. Ant Tibial Artery, mid = 118.2 cm./sec. Ant. Tibial Artery, distal = 92.3 cm./sec. Procedure Exam performed in department. /US Art Duplex Unilat Lower Ext Interpretation Summary The arterial tree in the left lower extremity appears patent throughout. There appears to be a stenosis of 50-99% in the proximal left superficial femoral artery based upon velocity criteria. An paten t, intra-arterial stent is noted in the distal left superficial femoral artery which extends into the left popliteal ar ge. Ordering Physician: Tex Inman Referring Physician: Rey Greenwood Chi Performed By: Renee Ramesh RVT
--- NOTE | 2024-10-29 11:08 | PN.PCM_ITS ---
History of Present Illness Date of Service: 10/29/24 Chief Complaint: Diabetic ulceration of the left great toe History of Wound: The patient is seen on behalf of Dr. Nathen Gonzalez, Podiatric specialist, who is the patient's regular Wound Center provider. Patient's history has been previously documented by Dr. Gonzalez. He is under treatment for an ulceration of the plantar aspect of the left great toe. He is a known diabetic, and has a history of myocardial infarction and congestive heart failure. He denies a history of cerebrovascular accident, pulmonary disease, renal disease, thyroid disease, and hyperlipidemia. The patient is not currently a smoker, but formerly smoked 1 pack of cigarettes per day for approximately 45 years. 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 He has a history of peripheral arterial occlusive disease, and indicates that 2 vascular stents have been placed in his right lower extremity, and 1 in his left lower extremity. The patient is ambulatory, but suffers from classic symptoms of i ntermittent claudication at short distances of ambulation. With 2 blocks of ambulation, the patient experiences calf pain, which is typically relieved by rest. Current management involves the use of Betadine topically to his left great toe ulceration. 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 Subjective Subjective Patient is a 79-year-old diabetic male presenting to wound care center follow-up evaluation of full-thickness wound the plantar aspect of the left hallux status post Symes amputation. Patient did get his x-rays at [facility]. He has been doing dressing changes as discussed. He denies trauma. Denies constitutional symptoms. No other pedal complaints at this time. Objective Data Objective Data Vital Signs: Vital Signs Temp Pulse Resp BP O2 Del Method 98.7 F 62 18 175/99 H Room Air 10/29/24 08:12 10/29/24 08:12 10/29/24 08:12 10/29/24 08:21 10/29/24 08:12 Oxygen Delivery Method Room Air Weight: 95.254 kg Body Mass Index (BMI) 30.1 Physical Exam Narrative Vascular: DP and PT pulses palpable. CFT brisk. No erythema or proximal streaking. Skin temperature is warm to warm with no focal increase. Neurologic: Light touch is intact. Protective sensation is absent. 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 Full-thickness wound to the plantar aspect left hallux measuring 0.8 x 0.8 x 0.2 cm. Wound base is granular with no signs of infection. Excisional debridement down to including subcutaneous tissue with number 3 mm dermal curette to the full-thickness wound to plantar aspect of left hallux done without incident. Predebridement measurement was 0.5 x 0.4 x 0.1 cm. Postdebridement measurement is 0.8 x 0.8 x 0.2 cm. Musculoskeletal: Decreased range of motion to the first metatarsal phalangeal joint to the left foot. No pain on palpation to the full-thickness wound to plantar aspect of the left great toe. No pain with calf pressure. Debridement Note Debridement Note Debridement Free Text: Excisional debridement down to including subcutaneous tissue with number 3 mm dermal curette to the full-thickness wound to plantar aspect of left hallux done without incident. Predebridement measurement was 0.5 x 0.4 x 0.1 cm. Postdebridement measurement is 0.8 x 0.8 x 0.2 cm. Post-Debridement Measurements and Additional Note: Post-Debridement Measurements/Treatment - Nurse 1 - General Ulcer Assessment Start: 10/15/24 13:57 Freq: Status: Active Protocol: YOUNG Activity Type Activity Date Activity User E-sign Co-sign Detail Recorded Client Recorded Date Recorded By Document 10/15/24 13:57 DL [id number] 10/15/24 14:19 DL Document 10/21/24 10:02 BMF [id number] 10/21/24 10:08 BMF Edit Result 10/21/24 10:02 BMF (1) [id number] 10/21/24 10:10 BMF Document 10/29/24 08:12 DS [id number] 10/29/24 08:20 DS Document 10/29/24 08:21 DS [id number] 10/29/24 08:22 DS (1) Pulse Rate (60-100) => 80 Comment => 160/106 BP RECHK L => ARM PULSE 80 PER => MONITOR. 10/15/24 10/21/24 10/29/24 13:57 10:02 08:12 - Today's Visit Information Type of service Initial Visit Follow-up Visit Follow-up Visit (Physician/HIGH REACH OPERATOR (Physician/HIGH REACH OPERATOR ) ) Arrival Mode Ambulatory Ambulatory Ambulatory Transfer Assistance None None Patient Identification Verified (Name & Yes Yes ) Patient Requires Transmission-Based No No Precautions Safety Precautions NA Fall Prevention Height and Weight Height 5 ft 10 in Weight 95.254 kg Weight in Pounds 210.0 lbs Body Mass Index (BMI) 30.1 30.1 30.1 BMI Classification Obese Obese Obese Vital Signs Temperature (97.8 F-99.1 F) 98.2 F 98.1 F 98.7 F Temperature Source Temporal Temporal Temporal Pulse Rate (60-100) 85 80 62 Pulse Location Monitor Monitor Monitor Respiratory Rate (12-18) 18 16 18 Respiratory rate source Observation Observation Observation Oxygen Delivery Method Room Air Room Air Blood Pressure (90/60-120/80) 144/74 H 170/108 H 183/104 H Blood Pressure Mean (mm Hg) 97 128 130 Source Monitor Monitor Monitor Position Sitting Semi-Fowlers Blood Pressure Location Right Arm Left Arm Comment 160/106 BP RECHK L ARM PULSE 80 PER MONITOR. History Since Last Visit- (Skip if this is Patient's initial visit) Have you changed medications since your No Yes last visit? Any new allergies or adverse reactions No No Had a fall/change in ADL's that may No No increase risk of falls Signs or symptoms of abuse and/or No No neglect since last visit Have you been in the hospital since your No No last visit? Has dressing in place as prescribed Yes Yes Has compression in place as prescribed Yes N/A Has offloadiing in place as prescribed N/A N/A Experienced any changes in pain level or No No management Left Footwear Regular Shoe Regular Shoe Right Footwear Regular Shoe Regular Shoe Pain Scale: 0-10 Numeric Is Patient Pain Free? Yes Yes Yes Lower Extremity Assessment/ Foot Assessment/ Toe Nail Assessment Left -Posterior Tibial Palpable No -Dorsalis Pedis Palpable No -Extremity Color Hemosiderin -Hair Growth on Legs No -Hair Growth on Toes No -Capillary Refill Greater than 3 Seconds -Dependent Rubor No -Blanched when Elevated No -Lipodermatosclerosis No -Other Deformity Yes -Prior Foot Ulcer Yes -Charcot Joint No -Prior Amputation Yes -Thick Yes -Discolored Yes -Deformed Yes -Improper Length & Hygeine No Right -Posterior Tibial Palpable No -Dorsalis Pedis Palpable Yes -Extremity Color Hemosiderin -Hair Growth on Legs No -Hair Growth on Toes No -Temperature of Extremity Warm -Capillary Refill Greater than 3 Seconds -Dependent Rubor No -Blanched when Elevated No -Lipodermatosclerosis No -Other Deformity No -Prior Foot Ulcer No -Charcot Joint No -Prior Amputation No -Thick Yes -Discolored Yes -Deformed Yes -Improper Length & Hygeine No 10/29/24 08:21 WC - Today's Visit Information Type of service Arrival Mode Transfer Assistance Patient Identification Verified (Name & ) Patient Requires Transmission-Based Precautions Safety Precautions Height and Weight Height Weight Weight in Pounds Body Mass Index (BMI) 30.1 BMI Classification Obese Vital Signs Temperature (97.8 F-99.1 F) Temperature Source Pulse Rate (60-100) Pulse Location Respiratory Rate (12-18) Respiratory rate source Oxygen Delivery Method Blood Pressure (90/60-120/80) 175/99 H Blood Pressure Mean (mm Hg) 124 Source Monitor Position Sitting Blood Pressure Location Left Arm Comment History Since Last Visit- (Skip if this is Patient's initial visit) Have you changed medications since your last visit? Any new allergies or adverse reactions Had a fall/change in ADL's that may increase risk of falls Signs or symptoms of abuse and/or neglect since last visit Have you been in the hospital since your last visit? Has dressing in place as prescribed Has compression in place as prescribed Has offloadiing in place as prescribed Experienced any changes in pain level or management Left Footwear Right Footwear Pain Scale: 0-10 Numeric Is Patient Pain Free? Yes Lower Extremity Assessment/ Foot Assessment/ Toe Nail Assessment Left -Posterior Tibial Palpable -Dorsalis Pedis Palpable -Extremity Color -Hair Growth on Legs -Hair Growth on Toes -Capillary Refill -Dependent Rubor -Blanched when Elevated -Lipodermatosclerosis -Other Deformity -Prior Foot Ulcer -Charcot Joint -Prior Amputation -Thick -Discolored -Deformed -Improper Length & Hygeine Right -Posterior Tibial Palpable -Dorsalis Pedis Palpable -Extremity Color -Hair Growth on Legs -Hair Growth on Toes -Temperature of Extremity -Capillary Refill -Dependent Rubor -Blanched when Elevated -Lipodermatosclerosis -Other Deformity -Prior Foot Ulcer -Charcot Joint -Prior Amputation -Thick -Discolored -Deformed -Improper Length & Hygeine WC - Nurse 1 - General Ulcer Measurement Start: 10/15/24 13:57 Freq: Status: Active Protocol: Activity Type Activity Date Activity User E-sign Co-sign Detail Recorded Client Recorded Date Recorded By Document 10/15/24 13:57 DL [id number] 10/15/24 14:19 DL Document 10/21/24 10:02 BMF [id number] 10/21/24 10:08 BMF Document 10/29/24 08:12 DS [id number] 10/29/24 08:20 DS 10/15/24 10/21/24 10/29/24 13:57 10:02 08:12 Wound Center Nurse 1 #2 L Grt Toe Plantar -Combined with other wound No -Current Size (cm) - Length 0.5 0.7 0.8 -Current Size (cm) - Width 0.5 0.5 0.6 -Current Size (cm) - Depth 0.3 0.3 0.3 -Total Square Cm 0.25 0.35 0.48 -Date of Last Picture (Recall this 10/21/24 10/29/24 field) -Photo Taken Yes Yes Yes -Tunneling No No -Undermining/Tunneling No No -Circular Undermining No No -Classification - Thickness Full Thickness without Exposed Support Structure -Exudate Amt Small Medium Small -Exudate Type Serosanguineous Serosanguineous Serosanguineous -Wound Margin Thickened Thickened Distinct, Outline Attached -Granulation Amt Small (1-33%) Large (67-100%) Medium (34-66%) -Granulation Quality Braxton Pale,Braxton Braxton -Slough/Fibrin Yes -Necrosis Amt None Present (0 Small (1-33%) Medium (34-66%) %) -Necrotic Tissue Type Adherent Slough Adherent Slough -Structure Exposed N/A -Texture (Pat-wound Skin Appearance) Callus,Scarring Assessed,Callus Assessed,Callus -Moisture (Pat-wound Skin Appearance) Dry/Scaly Assessed Assessed -Color (Pat-wound Skin Appearance) No Abnormality Assessed Assessed -Temperature (Pat-wound Skin No Abnormality No Abnormality No Abnormality Appearance) (Pt Warm) (Pt Warm) (Pt Warm) -Tenderness on Palpation (Pat-wound No No No Skin Appearance) -Ulcer Cleansing Rinsed/ Rinsed/ Soap and Water Irrigated with Irrigated with Saline Saline -Foul Odor after Cleansing No No No -Anesthetic Used 5% Lidocaine 5% Lidocaine 5% Lidocaine Gel Gel Gel Left Calf (cm) 36.7 Left Ankle (cm) 26.2 WC - Nurse 2 - General Ulcer CM Notes Start: 10/15/24 13:57 Freq: Status: Active Protocol: Activity Type Activity Date Activity User E-sign Co-sign Detail Recorded Client Recorded Date Recorded By Document 10/15/24 14:57 [id number] 10/15/24 14:59 Document 10/21/24 10:22 [id number] 10/21/24 10:33 Document 10/29/24 08:44 [id number] 10/29/24 08:47 10/15/24 10/21/24 10/29/24 14:57 10:22 08:44 Wound Center Nurse 2 #2 L Grt Toe Plantar -Time 14:58 10:22 08:44 -Correct Patient Yes Yes Yes -Correct Side, Site, Position Yes Yes Yes -Correct Procedure Yes Yes Yes -Procedure Performed Yes Yes Yes -Type of Procedure Debridement Debridement Debridement -Clinical Debridement Subcutaneous Subcutaneous Subcutaneous -Tissue Removed Subcutaneous Subcutaneous Subcutaneous -Post Debridement (cm) - Length 0.8 0.6 0.8 -Post Debridement (cm) - Width 0.8 0.6 0.8 -Post Debridement (cm) - Depth 0.2 0.3 0.2 -Total Square (Post) (cm) 0.64 0.36 0.64 -Area of Debridement (cm) - Length 0.8 0.6 0.8 -Area of Debridement (cm) - Width 0.8 0.6 0.8 -Total Square (Area) (cm) 0.64 0.36 0.64 -Tunneling No No No -Undermining/Tunneling No No No -Circular Undermining No No No -Wound/Ulcer Outcome Not Healed Not Healed Not Healed -Ulcer Cleansing Rinsed/ Rinsed/ Rinsed/ Irrigated with Irrigated with Irrigated with Saline Saline Saline -Foul Odor after Cleansing No No No -Bioengineered Tissue No No No -Bleeding Controlled with Pressure Pressure Pressure -Treatment Response Procedure Procedure Procedure Tolerated Well Tolerated Well Tolerated Well -Offloading No No No -Debridement - Subq, 1st 20sq cm Yes Yes Yes Pain Scale: 0-10 Numeric Is Patient Pain Free? Yes Yes Yes WC - Nurse 3 - General Ulcer D/C NN Start: 10/15/24 13:57 Freq: Status: Active Protocol: Activity Type Activity Date Activity User E-sign Co-sign Detail Recorded Client Recorded Date Recorded By Document 10/15/24 15:13 [facility] [id number] 10/15/24 15:14 BM Document 10/21/24 10:33 JF [id number] 10/21/24 10:34 JF Document 10/29/24 08:55 [id number] 10/29/24 08:55 10/15/24 10/21/24 10/29/24 15:13 10:33 08:55 Wound Care Center Nurse 3 #2 L Grt Toe Plantar -Ulcer Cleansing Rinsed/ Not Cleansed Irrigated with Saline -Foul Odor after Cleansing No No -Negative Pressure Wound Therapy N/A -Primary Dressing Applied C Hydrogel -Other Dressing betadine, bandaid -Primary Dressing Covered/Secured with Dry Gauze, Dry Gauze, Secured with Secured with Tape Tape -Other Covering drsg per dl industrial workers -Hydrogel 1 BLE -Tubular Bandage Single Layer -Size of Tubigrip Used Size D -Size D ($) 2 Treatment Response Procedure Tolerated Well Pain Scale: 0-10 Numeric Is Patient Pain Free? Yes Yes Yes - Visit Discharge Discharge Condition Stable Stable Stable Ambulatory Status Ambulatory Ambulatory Ambulatory Transportation Private Auto Private Auto Private Auto Accompanied by Assessment/Plan Assessment/Plan (1) Non-pressure chronic ulcer of other part of left foot with fat layer exposed: CODE(S): L97.522 - Non-pressure chronic ulcer of other part of left foot with fat layer exposed PLAN: Patient was examined and evaluated. All findings were discussed with the patient. All questions were answered to the patient's satisfaction. Excisional debridement down to including subcutaneous tissue with number 3 mm dermal curette to the full-thickness wound to plantar aspect of left hallux done without incident. Predebridement measurement was 0.5 x 0.4 x 0.1 cm. Postdebridement measurement is 0.8 x 0.8 x 0.2 cm. The area was wiped plain and patted dry. Betadine paint and sterile Band-Aid was applied. Reviewed the patient's radiographs show concern for a osteophyte to the plantar aspect of the amputation site to the left hallux. Will plan for booking the patient for minimally invasive surgery to bur down the bony prominence that is most likely causing the patient's wound. Risk and benefits discussed with the patient in great detail. Patient is agreeable to move forward with elective surgery. Past vascular history has been sent and uploaded into the patient's chart and will review prior to surgery. Patient will follow-up in 1 week (2) Acute painful diabetic polyneuropathy: CODE(S): E11.42 - Type 2 diabetes mellitus with diabetic polyneuropathy
--- NOTE | 2024-10-29 14:23 | WC ---
PHOTO- LEFT PLANTAR 10/29/24
[2024-11-05 08:22] VITALS: BP 185/112; PULSE 79; RESP 15; TEMP 36.6; BMI 30.1
--- NOTE | 2024-11-05 08:33 | PN.PCM_ITS ---
History of Present Illness Date of Service: 11/05/24 Chief Complaint: Diabetic ulceration of the left great toe History of Wound: The patient is seen on behalf of Dr. Nathen Gonzalez, Podiatric specialist, who is the patient's regular Wound Center provider. Patient's history has been previously documented by Dr. Gonzalez. He is under treatment for an ulceration of the plantar aspect of the left great toe. He is a known diabetic, and has a history of myocardial infarction and congestive heart failure. He denies a history of cerebrovascular accident, pulmonary disease, renal disease, thyroid disease, and hyperlipidemia. The patient is not currently a smoker, but formerly smoked 1 pack of cigarettes per day for approximately 45 years. 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 He has a history of peripheral arterial occlusive disease, and indicates that 2 vascular stents have been placed in his right lower extremity, and 1 in his left lower extremity. The patient is ambulatory, but suffers from classic symptoms of i ntermittent claudication at short distances of ambulation. With 2 blocks of ambulation, the patient experiences calf pain, which is typically relieved by rest. Current management involves the use of Betadine topically to his left great toe ulceration. 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 Patient has seen his primary doctor and has been taken off some of his blood pressure medication and is showing signs of hypertension with 2 blood pressure readings while in clinic today. He is on a green pill as he says but does not know the name for the medicine he is taking for his blood pressure. He is off his inhaler for his COPD. He does admit to some discomfort due to his high blood pressure today. He has been compliant with dressing changes to the plantar wound to the left foot. He is motivated to move forward with surgical intervention. Denies trauma. Denies constitutional symptoms. No other pedal complaints at this time. Objective Data Objective Data Vital Signs: Vital Signs Temp Pulse Resp BP O2 Del Method 97.8 F 79 15 185/112 H Room Air 11/05/24 08:22 11/05/24 08:22 11/05/24 08:22 11/05/24 08:22 10/29/24 08:12 Oxygen Delivery Method Room Air Weight: 95.254 kg Body Mass Index (BMI) 30.1 Physical Exam Narrative Vascular: DP and PT pulses palpable. CFT brisk. No erythema or proximal streaking. Skin temperature is warm to warm with no focal increase. Neurologic: Light touch is intact. Protective sensation is absent. 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 Full-thickness wound to the plantar aspect left hallux measuring 0.8 x 0.8 x 0.2 cm. Wound base is granular with no signs of infection. Excisional debridement down to including subcutaneous tissue with number 3 mm dermal curette to the full-thickness wound to plantar aspect of left hallux done without incident. Predebridement measurement was 0.6 x 0.5 x 0.1 cm. Postdebridement measurement is 0.8 x 0.7 x 0.2 cm. Musculoskeletal: Decreased range of motion to the first metatarsal phalangeal joint to the left foot. No pain on palpation to the full-thickness wound to plantar aspect of the left great toe. No pain with calf pressure. Debridement Note Debridement Note Debridement Free Text: Excisional debridement down to including subcutaneous tissue with number 3 mm dermal curette to the full-thickness wound to plantar aspect of left hallux done without incident. Predebridement measurement was 0.6 x 0.5 x 0.1 cm. Postdebridement measurement is 0.8 x 0.7 x 0.2 cm. Post-Debridement Measurements and Additional Note: Post-Debridement Measurements/Treatment WC - Nurse 1 - General Ulcer Assessment Start: 10/15/24 13:57 Freq: Status: Active Protocol: STEVEN.ISAIAH Activity Type Activity Date Activity User E-sign Co-sign Detail Recorded Client Recorded Date Recorded By Document 10/15/24 13:57 DL [id number] 10/15/24 14:19 DL Document 10/21/24 10:02 BMF [id number] 10/21/24 10:08 BMF Edit Result 10/21/24 10:02 BMF (1) [id number] 10/21/24 10:10 BMF Document 10/29/24 08:12 DS [id number] 10/29/24 08:20 DS Document 10/29/24 08:21 DS [id number] 10/29/24 08:22 DS Document 11/05/24 08:22 ML [id number] 11/05/24 08:24 ML (1) Pulse Rate (60-100) => 80 Comment => 160/106 BP RECHK L => ARM PULSE 80 PER => MONITOR. 10/15/24 10/21/24 10/29/24 13:57 10:02 08:12 WC - Today's Visit Information Type of service Initial Visit Follow-up Visit Follow-up Visit (Physician/PHYSICIAN INTERVENTIONAL CARDIOLOGIST (Physician/PHYSICIAN INTERVENTIONAL CARDIOLOGIST ) ) Arrival Mode Ambulatory Ambulatory Ambulatory Transfer Assistance None None Patient Identification Verified (Name & Yes Yes ) Patient Requires Transmission-Based No No Precautions Safety Precautions NA Fall Prevention Height and Weight Height 5 ft 10 in Weight 95.254 kg Weight in Pounds 210.0 lbs Body Mass Index (BMI) 30.1 30.1 30.1 BMI Classification Obese Obese Obese Vital Signs Temperature (97.8 F-99.1 F) 98.2 F 98.1 F 98.7 F Temperature Source Temporal Temporal Temporal Pulse Rate (60-100) 85 80 62 Pulse Location Monitor Monitor Monitor Respiratory Rate (12-18) 18 16 18 Respiratory rate source Observation Observation Observation Oxygen Delivery Method Room Air Room Air Blood Pressure (90/60-120/80) 144/74 H 170/108 H 183/104 H Blood Pressure Mean (mm Hg) 97 128 130 Source Monitor Monitor Monitor Position Sitting Semi-Fowlers Blood Pressure Location Right Arm Left Arm Comment 160/106 BP RECHK L ARM PULSE 80 PER MONITOR. History Since Last Visit- (Skip if this is Patient's initial visit) Have you changed medications since your No Yes last visit? Any new allergies or adverse reactions No No Had a fall/change in ADL's that may No No increase risk of falls Signs or symptoms of abuse and/or No No neglect since last visit Have you been in the hospital since your No No last visit? Has dressing in place as prescribed Yes Yes Has compression in place as prescribed Yes N/A Has offloadiing in place as prescribed N/A N/A Experienced any changes in pain level or No No management Left Footwear Regular Shoe Regular Shoe Right Footwear Regular Shoe Regular Shoe Pain Scale: 0-10 Numeric Is Patient Pain Free? Yes Yes Yes Lower Extremity Assessment/ Foot Assessment/ Toe Nail Assessment Left -Posterior Tibial Palpable No -Dorsalis Pedis Palpable No -Extremity Color Hemosiderin -Hair Growth on Legs No -Hair Growth on Toes No -Capillary Refill Greater than 3 Seconds -Dependent Rubor No -Blanched when Elevated No -Lipodermatosclerosis No -Other Deformity Yes -Prior Foot Ulcer Yes -Charcot Joint No -Prior Amputation Yes -Thick Yes -Discolored Yes -Deformed Yes -Improper Length & Hygeine No Right -Posterior Tibial Palpable No -Dorsalis Pedis Palpable Yes -Extremity Color Hemosiderin -Hair Growth on Legs No -Hair Growth on Toes No -Temperature of Extremity Warm -Capillary Refill Greater than 3 Seconds -Dependent Rubor No -Blanched when Elevated No -Lipodermatosclerosis No -Other Deformity No -Prior Foot Ulcer No -Charcot Joint No -Prior Amputation No -Thick Yes -Discolored Yes -Deformed Yes -Improper Length & Hygeine No 10/29/24 11/05/24 08:21 08:22 WC - Today's Visit Information Type of service Follow-up Visit (Physician/PHYSICIAN INTERVENTIONAL CARDIOLOGIST ) Arrival Mode Ambulatory Transfer Assistance None Patient Identification Verified (Name & Yes ) Patient Requires Transmission-Based No Precautions Safety Precautions Height and Weight Height Weight Weight in Pounds Body Mass Index (BMI) 30.1 30.1 BMI Classification Obese Obese Vital Signs Temperature (97.8 F-99.1 F) 97.8 F Temperature Source Temporal Pulse Rate (60-100) 79 Pulse Location Monitor Respiratory Rate (12-18) 15 Respiratory rate source Observation Oxygen Delivery Method Blood Pressure (90/60-120/80) 175/99 H 185/112 H Blood Pressure Mean (mm Hg) 124 136 Source Monitor Monitor Position Sitting Sitting Blood Pressure Location Left Arm Right Arm Comment History Since Last Visit- (Skip if this is Patient's initial visit) Have you changed medications since your No last visit? Any new allergies or adverse reactions No Had a fall/change in ADL's that may No increase risk of falls Signs or symptoms of abuse and/or No neglect since last visit Have you been in the hospital since your No last visit? Has dressing in place as prescribed Yes Has compression in place as prescribed Yes Has offloadiing in place as prescribed Yes Experienced any changes in pain level or No management Left Footwear Right Footwear Pain Scale: 0-10 Numeric Is Patient Pain Free? Yes Yes Lower Extremity Assessment/ Foot Assessment/ Toe Nail Assessment Left -Posterior Tibial Palpable -Dorsalis Pedis Palpable -Extremity Color -Hair Growth on Legs -Hair Growth on Toes -Capillary Refill -Dependent Rubor -Blanched when Elevated -Lipodermatosclerosis -Other Deformity -Prior Foot Ulcer -Charcot Joint -Prior Amputation -Thick -Discolored -Deformed -Improper Length & Hygeine Right -Posterior Tibial Palpable -Dorsalis Pedis Palpable -Extremity Color -Hair Growth on Legs -Hair Growth on Toes -Temperature of Extremity -Capillary Refill -Dependent Rubor -Blanched when Elevated -Lipodermatosclerosis -Other Deformity -Prior Foot Ulcer -Charcot Joint -Prior Amputation -Thick -Discolored -Deformed -Improper Length & Hygeine WC - Nurse 1 - General Ulcer Measurement Start: 10/15/24 13:57 Freq: Status: Active Protocol: Activity Type Activity Date Activity User E-sign Co-sign Detail Recorded Client Recorded Date Recorded By Document 10/15/24 13:57 DL [id number] 10/15/24 14:19 DL Document 10/21/24 10:02 BMF [id number] 10/21/24 10:08 BMF Document 10/29/24 08:12 DS [id number] 10/29/24 08:20 DS Document 11/05/24 08:22 ML [id number] 11/05/24 08:24 ML 10/15/24 10/21/24 10/29/24 13:57 10:02 08:12 Wound Center Nurse 1 #2 L Grt Toe Plantar -Combined with other wound No -Current Size (cm) - Length 0.5 0.7 0.8 -Current Size (cm) - Width 0.5 0.5 0.6 -Current Size (cm) - Depth 0.3 0.3 0.3 -Total Square Cm 0.25 0.35 0.48 -Date of Last Picture (Recall this 10/21/24 10/29/24 field) -Photo Taken Yes Yes Yes -Tunneling No No -Undermining/Tunneling No No -Circular Undermining No No -Classification - Thickness Full Thickness without Exposed Support Structure -Exudate Amt Small Medium Small -Exudate Type Serosanguineous Serosanguineous Serosanguineous -Wound Margin Thickened Thickened Distinct, Outline Attached -Granulation Amt Small (1-33%) Large (67-100%) Medium (34-66%) -Granulation Quality Leoma Pale,Leoma Leoma -Slough/Fibrin Yes -Necrosis Amt None Present (0 Small (1-33%) Medium (34-66%) %) -Necrotic Tissue Type Adherent Slough Adherent Slough -Structure Exposed N/A -Texture (Pat-wound Skin Appearance) Callus,Scarring Assessed,Callus Assessed,Callus -Moisture (Pat-wound Skin Appearance) Dry/Scaly Assessed Assessed -Color (Pat-wound Skin Appearance) No Abnormality Assessed Assessed -Temperature (Pat-wound Skin No Abnormality No Abnormality No Abnormality Appearance) (Pt Warm) (Pt Warm) (Pt Warm) -Tenderness on Palpation (Pat-wound No No No Skin Appearance) -Ulcer Cleansing Rinsed/ Rinsed/ Soap and Water Irrigated with Irrigated with Saline Saline -Foul Odor after Cleansing No No No -Anesthetic Used 5% Lidocaine 5% Lidocaine 5% Lidocaine Gel Gel Gel Left Calf (cm) 36.7 Left Ankle (cm) 26.2 11/05/24 08:22 Wound Center Nurse 1 #2 L Grt Toe Plantar -Combined with other wound -Current Size (cm) - Length 1 -Current Size (cm) - Width 1 -Current Size (cm) - Depth 0.2 -Total Square Cm 1 -Date of Last Picture (Recall this field) -Photo Taken -Tunneling -Undermining/Tunneling -Circular Undermining -Classification - Thickness -Exudate Amt Medium -Exudate Type Serosanguineous -Wound Margin Thickened & Rolled Under -Granulation Amt Medium (34-66%) -Granulation Quality -Slough/Fibrin Yes -Necrosis Amt Medium (34-66%) -Necrotic Tissue Type Adherent Slough -Structure Exposed -Texture (Pat-wound Skin Appearance) Assessed -Moisture (Pat-wound Skin Appearance) Assessed -Color (Pat-wound Skin Appearance) Assessed -Temperature (Pat-wound Skin No Abnormality Appearance) (Pt Warm) -Tenderness on Palpation (Pat-wound No Skin Appearance) -Ulcer Cleansing Rinsed/ Irrigated with Saline -Foul Odor after Cleansing No -Anesthetic Used 5% Lidocaine Gel Left Calf (cm) Left Ankle (cm) WC - Nurse 2 - General Ulcer CM Notes Start: 10/15/24 13:57 Freq: Status: Active Protocol: Activity Type Activity Date Activity User E-sign Co-sign Detail Recorded Client Recorded Date Recorded By Document 10/15/24 14:57 [id number] 10/15/24 14:59 Document 10/21/24 10:22 [id number] 10/21/24 10:33 Document 10/29/24 08:44 [id number] 10/29/24 08:47 10/15/24 10/21/24 10/29/24 14:57 10:22 08:44 Wound Center Nurse 2 #2 L Grt Toe Plantar -Time 14:58 10:22 08:44 -Correct Patient Yes Yes Yes -Correct Side, Site, Position Yes Yes Yes -Correct Procedure Yes Yes Yes -Procedure Performed Yes Yes Yes -Type of Procedure Debridement Debridement Debridement -Clinical Debridement Subcutaneous Subcutaneous Subcutaneous -Tissue Removed Subcutaneous Subcutaneous Subcutaneous -Post Debridement (cm) - Length 0.8 0.6 0.8 -Post Debridement (cm) - Width 0.8 0.6 0.8 -Post Debridement (cm) - Depth 0.2 0.3 0.2 -Total Square (Post) (cm) 0.64 0.36 0.64 -Area of Debridement (cm) - Length 0.8 0.6 0.8 -Area of Debridement (cm) - Width 0.8 0.6 0.8 -Total Square (Area) (cm) 0.64 0.36 0.64 -Tunneling No No No -Undermining/Tunneling No No No -Circular Undermining No No No -Wound/Ulcer Outcome Not Healed Not Healed Not Healed -Ulcer Cleansing Rinsed/ Rinsed/ Rinsed/ Irrigated with Irrigated with Irrigated with Saline Saline Saline -Foul Odor after Cleansing No No No -Bioengineered Tissue No No No -Bleeding Controlled with Pressure Pressure Pressure -Treatment Response Procedure Procedure Procedure Tolerated Well Tolerated Well Tolerated Well -Offloading No No No -Debridement - Subq, 1st 20sq cm Yes Yes Yes Pain Scale: 0-10 Numeric Is Patient Pain Free? Yes Yes Yes - Nurse 3 - General Ulcer D/C NN Start: 10/15/24 13:57 Freq: Status: Active Protocol: Activity Type Activity Date Activity User E-sign Co-sign Detail Recorded Client Recorded Date Recorded By Document 10/15/24 15:13 [facility] [id number] 10/15/24 15:14 [facility] Document 10/21/24 10:33 [id number] 10/21/24 10:34 Document 10/29/24 08:55 [id number] 10/29/24 08:55 10/15/24 10/21/24 10/29/24 15:13 10:33 08:55 Wound Care Center Nurse 3 #2 L Grt Toe Plantar -Ulcer Cleansing Rinsed/ Not Cleansed Irrigated with Saline -Foul Odor after Cleansing No No -Negative Pressure Wound Therapy N/A -Primary Dressing Applied C Hydrogel -Other Dressing betadine, bandaid -Primary Dressing Covered/Secured with Dry Gauze, Dry Gauze, Secured with Secured with Tape Tape -Other Covering drsg per dl valuer -Hydrogel 1 BLE -Tubular Bandage Single Layer -Size of Tubigrip Used Size D -Size D ($) 2 Treatment Response Procedure Tolerated Well Pain Scale: 0-10 Numeric Is Patient Pain Free? Yes Yes Yes WC - Visit Discharge Discharge Condition Stable Stable Stable Ambulatory Status Ambulatory Ambulatory Ambulatory Transportation Private Auto Private Auto Private Auto Accompanied by Assessment/Plan Assessment/Plan (1) Non-pressure chronic ulcer of other part of left foot with fat layer exposed: CODE(S): L97.522 - Non-pressure chronic ulcer of other part of left foot with fat layer exposed PLAN: Patient was examined and evaluated. All findings were discussed with the patient. All questions were answered to the patient's satisfaction. Excisional debridement down to including subcutaneous tissue with number 3 mm dermal curette to the full-thickness wound to plantar aspect of left hallux done without incident. Predebridement measurement was 0.6 x 0.5 x 0.1 cm. Postdebridement measurement is 0.8 x 0.7 x 0.2 cm. The left plantar wound was white cleaned and patted dry. Betadine paint sterile Band-Aid was applied. Patient will continue daily dressing changes as discussed. Review of the patient's arterial studies show evidence of arterial tree to left lower extremity appears patent throughout. There is appears to be stenosis of 50 to 99% of the proximal left superficial femoral artery based on velocity criteria. And patent intra-arterial stent is noted to the distal left superficial femoral artery which extends into the left popliteal artery. Will continue with booking the patient for minimally invasive surgery to remove the distal tip of the amputation site to the left great toe. All risk and benefit discussed with patient great detail. An additional manual blood pressure in office was taken and showed evidence of hypertension with a blood pressure of 196/110, recommended the patient to follow-up with his primary doctor or report to the emergency room for evaluation. Patient will follow-up in 1 week (2) Acute painful diabetic polyneuropathy: CODE(S): E11.42 - Type 2 diabetes mellitus with diabetic polyneuropathy
--- NOTE | 2024-11-05 08:42 | WC ---
Patient arrived today with elevated BP of 185/112 on monitor and 196/110 manually. Heart rate of 79. Patient states he was taken off all his BP med's via Dr Greenwood except for one and he doesn't know which one. Notified MA at Dr. Greenwood's office to report his BP readings and they said they will see patient today. Patient understands and will be heading over to their office now. Patient is stable.
--- NOTE | 2024-11-06 14:19 | WC ---
PHOTO-LEFT PLANTAR 11/05/24
== END 2024-11-11 23:59 | disposition home or self-care (01) ==
LOC: WC 08:45
PROVIDERS: PCP Family Medicine Geriatric Medicine; Visit Provider Podiatrist Foot & Ankle Surgery
DX: E11.622 Type 2 diabetes mellitus with other skin ulcer (principal); L97.522 Non-pressure chronic ulcer of other part of left foot with fat layer exposed; J44.9 Chronic obstructive pulmonary disease, unspecified; E11.42 Type 2 diabetes mellitus with diabetic polyneuropathy; Z79.51 Long term (current) use of inhaled steroids; M79.672 Pain in left foot; Z79.899 Other long term (current) drug therapy; I25.10 Atherosclerotic heart disease of native coronary artery without angina pectoris; Z89.429 Acquired absence of other toe(s), unspecified side; Z79.82 Long term (current) use of aspirin; I25.2 Old myocardial infarction; Z87.891 Personal history of nicotine dependence; I10 Essential (primary) hypertension
CPT/HCPCS: 11042; 73630; 93926; 99213; 99214; G0463

== ENCOUNTER → 2024-11-27 | Outpatient (CLI) | payer MEDICARE, OTHER, SELFPAY ==
--- OUTSIDE RECORDS SUMMARY | 2024-11-27 06:43 | XMS RPT_ITS | CCD ---
Author Organization [facility] Care Team Providers Care Loan Documents Closer Name Role Phone No, Physician Primary Care Provider Unavailmindy TERRAZAS, PHYSICIAN Primary Care Unavailable SABRINA LEWIS Referring Unavailable SABRINA LEWIS Attending Unavailable NO, PHYSICIAN Primary Care Unavailable SABRINA LEWIS Attending Unavailable Unavailable Primary Care Provider UnavailMATT Mcnally Attending Unavailable Physician, No Pcp Primary Care Provider UnavailAlisia Naidu MD Primary Care Provider Unavailable Primary Care Provider UnavailAlisia Aguirre MD Primary Care Provider ALISIA MONTES~[id number] [facility] Primar y Care Unavailable SHEMOMAGGIE MCLAIN Consulting Unavailable BAILEY SAADRI Admitting Unavailable LYNN SAADRI Attending Unavailable SHEMORAYNE MAGGIE Consulting Unavailable SHEMORY, MAGGIE Consulting Unavailable MATTI, MILAN Consulting Unavailable MATTI, MILAN Consulting Unavailable MATTI, MILAN Consulting Unavailable COMFORT, PRAKASH Consulting Unavailable COMFORT, PRAKASH Consulting Unavailable COMFORT, PRAKASH Consulting Unavailable [facility] Consulting Unavailable ALISIA MONTES~[id number] [facility] Primar y Care Unavailable NALLELY BENAVIDEZ Attending Unavailable PHYSICIAN, NO PCP Primary Care Unavailable MORGAN GROVER Attending Unavailable PRASHANTH MARTINEZ Admitting Unavailable ALISIA MONTES~[id number] [facility] Primar y Care Unavailable KEN DONATO Attending Unavailable GORSLINE, PORFIRIO Consulting Unavailable GORSLINE, PORFIRIO Consulting Unavailable GORSLINE, PORFIRIO Consulting Unavailable ISAIAH, AMA Consulting Unavailable ISAIAH, AMA Consulting Unavailable ISAIAH, AMA Consulting Unavailable KELLY, KEN Consulting Unavailable KELLY, KEN Consulting Unavailable KEN DONATO Consulting Unavailable Timo NI, Dr. Rey Hillman Primary Care Physician [phone] Timo NI, Dr. Rey Hillman Nurse Practitioner Storm NI, Dr. Tex Altamirano Attending Physician Timo NI, Dr. Rey Hillman Attending Physician Carlos MURPHY, Dr. Sena Attending Physician Ken Dill Referring Provider Storm NI, Dr. Tex Altamirano Referring Provider Rey Greenwood Chi Referring Unavailable Baljinder Leach Attending Unavailable Timo, Rey Chi Primary Care Unavailable Rey Greenwood Chi Primary Care Unavailable Nathen Gonzalez Attending Unavailable Rey Greenwood Chi Primary Care Unavailable ZAMISKA, HO Referring Unavailable Nathen Gonzalez Attending Unavailable Timo, Rey Chi Primary Care Unavailable ZAMISKA, HO Referring Unavailable Nathen Gonzalez Attending Unavailable Timo, Rey Hillman Primary Care Unavailable Rey Greenwood Chi Attending Unavailable Medications Current Medications Medication Drug Class(es) Dates Sig (Normalized) Sig (Original) Albuterol 90 mcg/actuation aerosol (2 sources) Start: 01-03-2023 amLODIPine 5 mg oral tablet (12 sources) Dihydropyridine Calcium Channel Emory Start: 01-03-2023 End: 11-11-2023 take 1 tablet by mouth once daily amoxicillin 875 mg / clavulanate 125 mg oral tablet (2 sources) Penicillin-class Antibacterial Start: 01-09-2023 End: 01-19-2023 take 1 tablet by mouth once amoxicillin-clav ulanate (AUGMENTIN) 875-125 mg per tablet Take 1 tablet by mouth every 12 (twelve) hours for 19 doses. 19 each 0 01/09/2023 01/19/2023 Active apixaban 5 mg oral tablet (1 source) Factor Xa Inhibitor Start: 06-24-2014 take 2 tablets by mouth twice daily apixaban (ELIQUIS) 5 mg tab(s) Take 10 mg by mouth two times a day. 06/24/2014 Active ascorbic acid 1000 mg oral tablet (2 sources) Vitamin C Start: 04-08-2020 take 1 tablet by mouth once daily Ascorbic Acid 1,000 mg tablet Take 1,000 mg by mouth once daily. 04/08/2020 Active aspirin 81 mg delayed release oral tablet (14 sources) Platelet Aggregation Inhibitor, Nonsteroidal Anti-inflammatory Drug Start: 11-10-2023 End: 11-13-2023 take 1 tablet by mouth twice daily aspirin 81 mg EC tablet Take 1 tablet (81 mg total) by mouth 2 (two) times a day. 60 tablet 11/13/2023 Active Start: 01-08-2023 End: 01-09-2023 take 81 mg by mouth once daily 81 mg, oral, Daily, Fir st dose on 01/08/23 at 1045 Start: 01-03-2023 End: 11-10-2023 atorvastatin 40 mg oral tablet (4 sources) HMG-CoA Reductase Inhibitor Start: 11-11-2023 End: 11-12-2024 take 1 tablet by mouth at bedtime atorvastatin (LIPITOR) 40 mg tablet Take 1 tablet (40 mg total) by mouth at bedtime. 30 each 11/13/2023 11/12/2024 Active Start: 10-02-2017 take 1 tablet by hailey th once daily at bedtime atorvastatin (LIPITOR) 40 mg tablet Take 40 mg by mouth daily at bedtime. 10/02/2017 Active azelastine hydrochloride 0.5 mg/ml ophthalmic solution (2 sources) Histamine-1 Receptor Antagonist take 1 drop(s) into the eye(s) twice daily Azelastine HCl (OPTIVAR) 0.05 % ophthalmic solution 1 Drop two times a day. Active take 1 spray(s) nasal route twic e daily azelastine 0.1% nasal spray Use 1 [place] in each nostril two times a day. Active b complex vitamins capsule (1 source) take 1 capsule by mouth once daily b complex vitamins capsule Take 1 (one) capsule by mouth daily . 0 Active calcium carbonate 1250 mg / cholecalciferol 200 unt oral tablet (1 source) Vitamin D take 1 tablet by mouth once daily calcium carbonate-vitami n D3 500 mg-5 mcg (200 unit) tablet Take 1 tablet by mouth once daily. 0 Active carvedilol 3.125 mg oral tablet (10 sources) alpha-Adrenergic Emory, beta-Adrenergic Emory Start: 01-04-20 End: 11-09-19 take 1 tablet by mouth twice daily at mealtime cephalexin 500 mg oral capsule (7 sources) Cephalosporin Antibacterial Start: 10-30-19 End: 11-13-19 take 1 capsule by mouth every six hours Start: 01-05-2023 End: 01-15-2023 take 1 capsule by mouth four times daily cephalexin (KEFLEX) 500 mg capsule Take 1 capsule (500 mg total) by mouth 4 (four) times a day for 10 days. 40 each 0 01/05/2023 01/09/2023 Discontinued (Stop Taking at Discharge) Start: 12-21-2022 End: 12-31-2022 take 1 capsule by mouth twice daily cephalexin (Keflex) 500 mg capsule Indications: Wound of right foot Take 1 capsule (500 mg) by mouth 2 times a day for 10 days. 20 capsule 0 12/21/2022 12/31/2022 Active clopidogrel 75 mg oral tablet (1 source) P2Y12 Platelet Inhibitor clopidogrel (Plavix) 75 mg tablet Take by mouth once daily. 0 Active dapagliflozin 10 mg oral tablet (3 sources) Sodium-Glucose Cotransporter 2 Inhibitor Start: 11-11-19 End: 12-14-19 take 1 tablet by mouth once daily dapagliflozin propanediol (FARXIGA) 10 mg tablet Take 1 tablet (10 mg total) by mouth 1 (one) time each day. 30 each 11/14/2023 12/14/2023 Active doxycycline monohydrate 100 mg oral tablet (1 source) Tetracycline-class Drug Start: 12-22-19 End: 01-01-20 take 1 tablet by mouth twice daily doxycycline (Adoxa) 100 mg tablet Indications: Wound of right foot Take 1 tablet (100 mg) by mouth 2 times a day for 10 days. Take with a full glass of water and do not lie down for at least 30 minutes after 20 tablet 0 12/21/2022 12/31/2022 Active dutasteride 0.5 mg oral capsule (9 sources) 5-alpha Reductase Inhibitor Start: 01-04-20 End: 11-09-19 24 take 1 capsule by mouth once daily esomeprazole 40 mg delayed release oral capsule (1 source) Proton Pump Inhibitor take 1 capsule by mouth once daily esomeprazole (NEXIUM) 40 mg capsule Take 40 mg by mouth once daily. Active ferrous sulfate 134 mg oral tablet (3 sources) take 1 tablet by mouth once daily ferrous sulfate (High Potency Iron) 27 mg iron tablet Take 27 mg by mouth 1 (one) time each day. Active take 1 tablet by mouth once amisha y ferrous sulfate 325 mg (65 mg iron) tablet Take 325 mg by mouth once daily. Active fluticasone propionate 0.05 mg/actuat metered dose nasal spray (1 source) Corticosteroid fluticasone (ALEXA NASE) 50 mcg/actuation nasal spray Use 1 [place] in the nose once daily. Active Fluticasone Propion-Salmeterol (11 sources) Corticosteroid, beta2-Adrenergic Agonist Start: 01-03-2023 Start: 01-03-2023 Fluticasone Pr opion-Salmeterol (Advair Hfa) 115-21 mcg/actuation HFA aerosol inhaler Active 2 NMA INHALATION DAILY January 03, 2023 1:00am Complies with drug therapy Start: 01-03-2023 Fluticasone Pr opion-Salmeterol (Advair Hfa) 115-21 mcg/actuation HFA aerosol inhaler Active 2 INH INHALATION DAILY January 03, 2023 12:00am Start: 09-30-2017 take 2 puff(s) by in halation twice daily fluticasone-salmeterol HFA (ADVAIR HFA) 115-21 mcg/actuation inhaler Inhale 2 Puffs as instructed two times a day. 09/30/2017 Active take 1 puff(s) by mo uth twice daily fluticasone propion-salmeteroL (ADVAIR DISKUS) 100-50 mcg/dose diskus inhaler Inhale 1 puff by mouth 2 (two) times a day. Rinse mouth with water after use to reduce aftertaste and incidence of candidiasis. Do not swallow. Active take 1 puff(s) by in halation twice daily fluticasone-salmeterol (ADVAIR DISKUS) 100-50 mcg/dose inhaler Inhale 1 Puff as instructed two times a day. Active take 1 puff(s) by mo uth twice daily fluticasone propion-salmeteroL (ADVAIR DISKUS) 100-50 mcg/dose diskus inhaler Inhale 1 puff 2 (two) times a day. Rinse mouth with water after use to reduce aftertaste and incidence of candidiasis. Do not swallow. 0 Active take 1 puff(s) by mo uth twice daily fluticasone propion-salmeteroL (ADVAIR HFA) 115-21 mcg/actuation inhaler Inhale 1 (one) puff 2 (two) times a day Rinse mouth after each use . 0 Active furosemide 40 mg oral tablet (14 sources) Loop Diuretic Start: 11-09-2023 40 mg, intrave nous, Once, On Sun11/09/23 at 0115, For 1 dose Start: 01-08-2023 End: 12-13-2023 take 1 tablet by mouth once daily furosemide (LASIX) 40 mg tablet Take 1 tablet (40 mg total) by mouth 1 (one) time each day if needed (edema). 11/13/2023 12/13/2023 Active Start: 01-03-2023 take 1 tablet by [facility] every other day End: 01-07-2023 furosemide (LASIX) 20 mg tab let Take by mouth. 0 01/07/2023 Discontinued (Entered in Error) furosemide (Lasi x) 40 mg tablet Take by mouth. 0 Active gabapentin 300 mg oral capsule (1 source) Anti-epileptic Agent take 1 capsule by mouth once daily at bedtime gabapentin (NEURONTIN) 300 mg capsule Take 300 mg by mouth daily at bedtime. Active hydroCHLOROthiazide 12.5 mg oral tablet (1 source) Thiazide Diuretic take 1 tablet by mouth once daily hydroCHLOROthiazide 12.5 mg tablet Take 12.5 mg by mouth once daily. Active 24 hr metoprolol succinate 25 mg extended release oral tablet (3 sources) beta-Adrenergic Emory Start : 11-10 End: 11-13 take 1 tablet by mouth once daily metoprolol succinate (TOPROL-XL) 25 mg 24 hr tablet Take 1 tablet (25 mg total) by mouth 1 (one) time each day. Do not crush or chew. 30 each 11/14/2023 11/13/2024 Active nitroglycerin 0.4 mg sublingual tablet (1 source) Nitrate Vasodilator nitroglyceri n sublingual (NITROSTAT) 0.4 mg SL tablet Dissolve under the tongue. Active oxyCODONE hydrochloride 5 mg oral tablet (5 sources) Opioid Agonist Start : 01-07 End: 01-09 take 1 tablet by mouth every four hours for pain oxyCODONE (ROXICODONE) 5 mg immediate release tablet Take 1 tablet (5 mg total) by mouth every 4 (four) hours if needed (moderate pain or when therapies for mild pain were not effective). Max Daily Amount: 30 mg 15 tablet 01/09/2023 Active Start: 01-07-2023 End: 01-09-2023 take 10 mg by mouth every four hours as needed for pain 10 mg, oral, Every 4 hours PRN, severe pain or when therapies for moderate pain were not effective, Starting on 01/07/23 at 0200 Oxygen (1 source) oxygen Inhale Titrated . 0 Active pantoprazole 40 mg delayed release oral tablet (11 sources) Proton Pump Inhibitor Start: End: take 1 tablet by mouth once daily phenylephrine hydrochloride 10 mg oral tablet (2 sources) alpha-1 Adrenergic Agonist take 1 tablet by mouth twice daily for congestion phenylephrine (SUDAFED PE) 10 mg tablet Take 1 tablet (10 mg total) by mouth 2 (two) times a day if needed for congestion. Active microencapsulated potassium chloride 10 meq extended release oral tablet (11 sources) Start: End: take 1 tablet by mouth twice daniele ly potassium chloride (KLOR-CON) 10 mEq CR tablet Take 1 tablet (10 mEq total) by mouth 2 (two) times a day. Active take 1 tablet by mouth once amisha y potassium chloride (KLOR-CON M15) 15 mEq CR tablet Take 1 tablet (15 mEq total) by mouth 1 (one) time each day. Do not crush or chew. 0 Active take 1 tablet by mouth once amisha y potassium chloride CR 10 mEq ER tablet Take 1 tablet (10 mEq) by mouth once daily. Do not crush, chew, or split. 0 Active take 1 tablet by mouth once amisha y potassium chloride (KLOR-CON) 8 MEQ CR tablet Take 1 (one) tablet (8 mEq total) by mouth daily . 0 Active sacubitril 24 mg / valsartan 26 mg oral tablet (6 sources) Angiotensin 2 Receptor Emory Start: 10-15-2024 Start: 11-11-2023 End: 12-13-2023 take 1 tablet by mouth twice daily sacubitriL-valsartan (ENTRESTO) 24-26 mg per tablet Take 1 tablet by mouth 2 (two) times a day. 60 each 11/13/2023 12/13/2023 Active Start: 05-16-2023 take 1 tablet by hailey th twice daily sacubitril-valsartan (ENTRESTO) 49-51 mg tablet Take 1 tablet by mouth two times a day. 05/16/2023 Active sour hernandez allergenic extract (6 sources) Non-Standardized Food Allergenic Extract, Non-Standardized Plant Allergenic Extract Start: 01-03-2023 Start: 01-03-2023 Sour Hernandez Ex tract (Tart Hernandez Extract) 1,000 mg capsule Active MG PO January 03, 2023 12:00am take 1 capsule by mo uth once daily sour hernandez extract (Tart Hernandez Extract) 1,000 mg capsule Take 1,000 mg by mouth 1 (one) time each day. Active sour hernandez extr act (TART HERNANDEZ EXTRACT ORAL) Take by mouth. 0 Active spironolactone 25 mg oral tablet (13 sources) Aldosterone Antagonist Start: 01-03-2023 End: 05-11-2024 take 1 tablet by mouth once daily End: 01-07-2023 spironolactone (ALDACTONE) 1 00 mg tablet Take by mouth. 0 01/07/2023 Discontinued (Entered in Error) sulfamethoxazole 800 mg / trimethoprim 160 mg oral tablet (1 source) Dihydrofolate Reductase Inhibitor Antibacterial, Sulfonamide Antimicrobial Start: 12-21-2022 End: 12-21-2022 take 1 tablet by mouth twice daily sulfamethoxazole-trimethoprim (Bactrim DS) 800-160 mg tablet Indications: Wound of right foot Take 1 tablet by mouth 2 times a day for 10 days. 20 tablet 0 12/21/2022 12/21/2022 Discontinued (Side effects) tiotropium 0.018 mg inhalation powder (8 sources) Anticholinergic Start: 01-03-2023 take 1 capsule by inhalation once daily Tiotropium [place] (Spiriva With Handihaler) 18 mcg capsule, w/inhalation device (1 source) Start: 01-03-2023 take 1 capsule by inhalation once daily Tiotropium [place] (Spiriva With Handihaler) 18 mcg capsule, w/inhalation device Active 1 CAP INHALATION DAILY January 03, 2023 12:00am puncture 1 cap using device; one dose = 2 inhalations UNABLE TO FIND (4 sources) take 450 mg by mouth once daily UNABLE TO FIND Take 450 mg by mouth 1 (one) time each day. Med Name: Apple Cider Vinegar Active take 1 tablet by mouth once amisha y UNABLE TO FIND Take 1 tablet by mouth 1 (one) time each day. Med Name: The Prostate Formula Active vitamin b12 1 mg oral tablet (1 source) Vitamin B12 Start: 09-30-2017 take 1 tablet by mouth twice daily cyanocobalamin (VITAMIN B-12) 1,000 mcg tab Take 1,000 mcg by mouth two times a day. 09/30/2017 Active vitamin e 268 mg oral capsule (1 source) take 1 capsule by mouth once daily vitamin E 400 UNIT capsule Take 1 (one) capsule (400 Units total) by mouth daily . 0 Active Completed/Discontinued Medications Medication Drug Class(es) Dates Sig (Normalized) Sig (Original) acetaminophen 325 mg oral tablet (2 sources) Start: 11-09-2023 End: 11-13-2023 take 1 tablet by mouth every six hours as needed Start: 01-07-2023 End: 01-09-2023 take 1 tablet by mouth every six hours as needed 650 mg, oral, Every 6 hours PRN, mild pain, Starting on 01/07/23 at 0200 acetaminophen 325 mg / HYDROcodone bitartrate 5 mg oral tablet (7 sources) Opioid Agonist Start: 11-10-2023 End: 11-20-2023 HYDROcodone-acetaminophen (NORCO) 5-325 mg per tablet Take 1 tablet by mouth every 4 (four) hours if needed for severe pain for up to 7 days. Max Daily Amount: 6 tablets 28 each 11/10/2023 11/20/2023 Start: 11-10-2023 End: 11-13-2023 take 2 tablets by mouth every six hours as needed 2 tablet, oral, Every 6 hours PRN, severe pain, Starting on 11/10/23 at 1336, Recovery & On Unit Start: 11-10-2023 End: 11-13-2023 take 1 tablet by mouth every six hours as needed Start: 01-05-2023 End: 01-05-2023 HYDROcodone-acetaminophen (N ORCO) 5-325 mg per tablet 1 tablet Start: 01-05-2023 End: 01-09-2023 HYDROcodone-acetaminophen (N ORCO) 5-325 mg per tablet Indications: Acute pain of right knee Take 1 tablet by mouth every 6 (six) hours if needed for severe pain for up to 3 days. Max Daily Amount: 4 tablets 12 tablet 0 01/05/2023 01/09/2023 Discontinued (Stop Taking at Discharge) albuterol 0.83 mg/ml inhalation solution (10 sources) beta2-Adrenergic Agonist Start: 11-09-2023 End: 11-13-2023 take 2.5 mg by inhalation every six hours as needed Start: 01-03-2023 Albuterol Acti ve MCG INHALATION .2 puffs January 03, 2023 12:00am take 2 puff(s) by mo [facility] every six hours for wheezing albuterol HFA (PROAIR HFA ; PROVENTIL HFA ; VENTOLIN HFA) 90 mcg/actuation inhaler Inhale 2 puffs by mouth every 6 (six) hours if needed for wheezing. Active albuterol (PROVE NTIL) 2.5 mg /3 mL (0.083 %) nebulizer solution albuterol sulfate 2.5 mg/3 mL (0.083 %) solution for nebulization Active albuterol 0.833 mg/ml / ipratropium bromide 0.167 mg/ml inhalation solution (2 sources) Anticholinergic, beta2-Adrenergic Agonist Start: 11-09-2023 End: 11-13-2023 3 mL, nebulization, 4 times daily, First dose on Sun11/09/23 at 0351 Start: 11-09-2023 End: 11-09-2023 3 mL, nebulization, Once, On Sun11/09/23 at 0023, For 1 dose allopurinol 100 mg oral tablet (4 sources) Xanthine Oxidase Inhibitor Start: 04-26-2023 End: 11-13-2023 take 100 mg by mouth once daily 100 mg, oral, Daily, First dose on Sun11/09/23 at 0900 Apple Cider Vinegar (4 sources) Start: 01-03-2023 End: 10-15-2024 apple cider vinegar 450 mg capsule Discontinued January 03, 2023 1:00am October 15, 2024 2:23pm Start: 01-03-2023 apple cider vi garo Active January 03, 2023 12:00am apple cider vine gar 500 mg tablet Take by mouth. 0 Active bisacodyl 10 mg rectal suppository (2 sources) Stimulant Laxative Start: 11-12-2023 End: 11-13-2023 take 10 mg rectal route once daily as needed for constipation 10 mg, rectal, Daily PRN, constipation, Starting on 11/12/23 at 1016, Use second-line prn constipation in addition to MOM after 24hr of use of MOM use Start: 01-07-2023 End: 01-09-2023 take 10 mg by mouth once daily as needed for constipation 10 mg, oral, Daily PRN, constipation, Starting on 01/07/23 at 0200 1st line for treatment of constipation - give scheduled if no bowel movement in past 24 hours. Do not crush, chew, or split. Budesonide (1 source) Corticosteroid Start: 01-08-2023 End: 01-09-2023 budesonide (PULMICORT) 0.5 mg/2 mL nebulizer solution 0.5 mg calcium chloride 0.0014 meq/ml / potassium chloride 0.004 meq/ml / sodium chloride 0.103 meq/ml / sodium lactate 0.028 meq/ml injectable solution (1 source) Start: 11-10-2023 End: 11-13-2023 take 20 mL intravenously every hour 20 mL/hr, intravenous, Continuous, Starting on 11/10/23 at 1045, Preprocedure, DC orders when pt leaves PACU, On hold since 11/11/2023 at 0754 until manually unheld cefTRIAXone (ROCEPHIN) IV syringe 2 g (1 source) Start: 01-07-2023 End: 01-09-2023 2 g, intravenous, at 400 mL/hr, Administer over 3 Minutes, Every 24 hours, First dose on 01/07/23 at 0230, For 5 days Do not administer simultaneously with any calcium containing solutions via a Y-site in any patient. Indication: Other, Skin/Soft Tissue Specify: Purulent Cellulitis cholecalciferol 1.25 mg oral capsule (9 sources) Vitamin D Start: 01-08-2023 End: 01-09-2023 take 01629 [IU] by mouth every week 50,000 Units, oral, Weekly, First dose on Sun01/08/23 at 1100 Start: 01-03-2023 take [address] [facility] every week Start: 04-08-2020 take [address] [facility] once daily Cholecalciferol, Vitamin D3, 25 mcg (1,000 unit) cap Take 1,000 Units by mouth once daily. 04/08/2020 Active take 1 tablet by [facility] once daily cholecalciferol (VITAMIN D-3) 25 mcg (1,000 unit) tablet Take 1 tablet (1,000 Units total) by mouth 1 (one) time each day. Active 1 ml dexamethasone phosphate 4 mg/ml injection (1 source) Corticosteroid Start: 11-09-2023 End: 11-09-2023 6 mg, intravenous, Once, On Sun11/09/23 at 0020, For 1 dose docusate sodium 100 mg oral capsule (1 source) Start: 11-12-2023 End: 11-13-2023 take 100 mg by mouth twice daily 100 mg, oral, 2 times daily, First dose on Sun11/12/23 at 1045 docusate sodium 50 mg / sennosides, correction 8.6 mg oral tablet (1 source) Start: 11-09-2023 End: 11-13-2023 take 1 tablet by mouth twice daily as needed for constipation 1 tablet, oral, 2 times daily PRN, constipation, Starting on Sun11/09/23 at 0301, Bowel Regimen - for prevention of constipation Use third-line prn constipation in addition to MOM and bisacodyl after 24hr of use of MOM and bisacodyl use 0.4 ml enoxaparin sodium 100 mg/ml prefilled syringe (1 source) Low Molecular Weight Heparin Start: 01-07-2023 End: 01-09-2023 inject 40 mg by subcutaneous injection every twenty-four hours 40 mg, subcutaneous, Every 24 hours scheduled, First dose on Sun01/07/23 at 0900 Indication: VTE/PE Prophylaxis ferric gluconate (FERRLECIT) 250 mg in sodium chloride 0.9 % 120 mL IVPB (1 source) Start: 11-11-2023 End: 11-13-2023 250 mg, intravenous, at 60 mL/hr, Administer over 120 Minutes, Daily, First dose on Sun11/11/23 at 1230, For 3 days finasteride 5 mg oral tablet (5 sources) 5-alpha Reductase Inhibitor Start: 11-09-2023 End: 11-13-2023 5 mg, oral, Daily, First dose on Sun11/09/23 at 0900, HAZARDOUS Drug Precautions - Low Risk (Category A/NIOSH Group 3) Reproductive Risk Only: - Do NOT split, crush, or open dosage units - Single pair of ASTM standard [id number] certified chemotherapy gloves - Eye protection (goggles or face shield) required only with a potential for facial contact (i.e. concern for spitting or vomiting of the dose during or after administration) Start: 01-08-2023 End: 01-09-2023 take 5 mg by mouth once daily for vomiting 5 mg, oral, Daily, First dose on Sun01/08/23 at 1100 HAZARDOUS Drug Precautions - Low Risk (Category A/NIOSH Group 3) Reproductive Risk Only: - Do NOT split, crush, or open dosage units - Single pair of ASTM standard [id number] certified chemotherapy gloves - Eye protection (goggles or face shield) required only with a potential for facial contact (i.e. concern for spitting or vomiting of the dose during or after administration) gadoterate meglumine (CLARISCAN, DOTAREM) injection 18 mL (1 source) Start: 11-09-2023 End: 11-09-2023 18 mL, intravenous, Once in imaging, Starting on Sun11/09/23 at 0900, For 1 dose gadoterate meglumine (CLARISCAN, DOTAREM) injection 20 mL (1 source) Start: 01-07-2023 End: 01-07-2023 gadoterate meglumine (CLARISCAN, DOTAREM) injection 20 mL ibuprofen 600 mg oral tablet (1 source) Nonsteroidal Anti-inflammatory Drug Start: 01-06-2023 End: 01-06-2023 ibuprofen (ADVIL,MOTRIN) tablet 600 mg 1 ml ketorolac tromethamine 30 mg/ml injection (1 source) Nonsteroidal Anti-inflammatory Drug, Cyclooxygenase Inhibitor Start: 01-07-2023 End: 01-09-2023 take 15 mg intravenously every six hours as needed ketorolac (TORADOL) injection 15 mg Lidocaine (1 source) Antiarrhythmic, Amide Local Anesthetic Start: 01-06-2023 End: 01-06-2023 lidocaine (XYLOCAINE) 1 % injection 10 mL magnesium hydroxide 80 mg/ml oral suspension (1 source) Start: 11-12-2023 End: 11-13-2023 take 8 [oz_av] by mouth twice daily as needed for constipation 15 mL, oral, 2 times daily PRN, constipation, Starting on Sun11/12/23 at 1016, Follow dose with 8 oz of water. use first-line prn constipation methylPREDNISolone (5 sources) Corticosteroid Start: 11-13-2023 End: 11-20-2023 methylPREDNISolone (MEDROL DOSPAK) 4 mg tablet Take as directed on package. 21 tablet 11/13/2023 11/20/2023 Start: 11-13-2023 End: 11-19-2023 methylPREDNISolone (MEDROL D OSPAK) 4 mg tablet Take as directed on package. 21 tablet 11/13/2023 11/19/2023 Active Start: 11-13-2023 End: 11-13-2023 60 mg, intravenous, Every 6 hours scheduled, First dose (after last modification) on Sun11/13/23 at 1200, Reconstitute each 125 mg vial with 2 mL sterile water for injection to a concentration of 62.5 mg/mL. Start: 11-12-2023 End: 11-13-2023 60 mg, intravenous, Every 12 hours scheduled, First dose (after last modification) on Sun11/12/23 at 1300, Reconstitute each 125 mg vial with 2 mL sterile water for injection to a concentration of 62.5 mg/mL. Start: 10-25-2023 methylPREDNISo lone (MEDROL DOSE-PACK) 4 mg Dose-Pack as directed. TAKE DIRECTED ON PACKAGE. 10/25/2023 Active 1 ml morphine sulfate 2 mg/ml cartridge (1 source) Opioid Agonist Start: 11-10-2023 End: 11-13-2023 Naloxone (1 source) Opioid Antagonist Start: 01-07-2023 End: 01-09-2023 0.04 mg, intravenous, As needed, opioid reversal, IV Push every 1 min for 10 doses, Starting on Sun01/07/23 at 0200, For 10 doses To Dilute: -Use 0.4 mg/mL vial , withdraw 1 mL and add 9 mL NS -FOLLOWING DILUTION, dose of 0.04 mg = 1 mL For PARTIAL Opioid Reversal: -For respiratory rate LESS than 8 or Pasero Opioid-induced Sedation Scale (POSS) GREATER than OR equal to 3 -May be repeated at 1 minute intervals to restore adequate respirations -Admi nister up to 10 doses (0.4 mg) ondansetron ODT (ZOFRAN-ODT) disintegrating tablet 4 mg (2 sources) Start: 11-09-2023 End: 11-13-2023 ondansetron ODT (ZOFRAN-ODT) disintegrating tablet 4 mg Start: 01-07-2023 End: 01-09-2023 ondansetron ODT (ZOFRAN-ODT) disintegrating tablet 4 mg Oxygen Therapy, Adult (1 source) Start: 01-07-2023 End: 01-09-2023 inhalation, As needed, short ness of breath, Starting on Sun01/07/23 at 0200 Device: Nasal Cannula Titrate Oxygen to keep O2 Sat. at or above: 92% piperacillin-tazobactam (ZOSYN) 4.5 g in sodium chloride 0.9 % 100 mL IVPB - MBP (2 sources) Start: 11-09-2023 End: 11-09-2023 4.5 g, intravenous, at 200 m L/hr, Administer over 0.5 Hours, Once, On Sun11/09/23 at 0019, For 1 dose, Mini-Bag Plus bag. Do not administer through same line as lactated ringer s fluids (LR), Indication: Diabetic Foot Start: 01-06-2023 End: 01-07-2023 piperacillin-tazobactam (ZOS YN) 4.5 g in sodium chloride 0.9 % 100 mL IVPB - MBP polyethylene glycol 3350 15037 mg powder for oral solution (1 source) Osmotic Laxative Start: 11-12-2023 End: 11-13-2023 17 g, oral, Daily, First dose on Sun11/12/23 at 1045 predniSONE 20 mg oral tablet (2 sources) Start: 11-10-2023 End: 11-11-2023 take 40 mg by mouth once daily 40 mg, oral, Daily, First dose on Sun11/10/23 at 0900, For 5 days Start: 02-08-2022 predniSONE (DE LTASONE) 20 MG tablet Take 2 tabs once daily x 5 days. . 10 tablet 0 02/08/2022 Active Prochlorperazine (1 source) Phenothiazine Start: 11-09-2023 End: 11-13-2023 take 1 tablet by mouth every six hours as needed prochlorperazine (COMPAZINE) tablet 10 mg revefenacin 0.0583 mg/ml inhalation solution (1 source) Start: 01-08-2023 End: 01-09-2023 175 mcg, nebulization, Daily, First dose on Sun01/08/23 at 1045 rOPINIRole 1 mg oral tablet (12 sources) Nonergot Dopamine Agonist Start: 11-09-2023 End: 11-13-2023 take 2 mg by mouth twice daily 2 mg, oral, 2 times daily, First dose on Sun11/09/23 at 0900 Start: 01-08-2023 End: 01-09-2023 take 2 mg by mouth twice daily 2 mg, oral, 2 times daniele ly, First dose on Sun01/08/23 at 1045 Start: 01-03-2023 take 1 tablet by hailey th twice daily Start: 12-14-2017 take 1 tablet by hailey th once daily at bedtime rOPINIRole (REQUIP) 2 mg tablet Take 2 mg by mouth daily at bedtime. 12/14/2017 Active take 1 tablet by hailey th once daily at bedtime rOPINIRole XL (Requip XL) 2 mg 24 hr tablet Take by mouth once daily at bedtime. 0 Active 1000 ml sodium chloride 9 mg/ml injection (5 sources) Start: 11-10-2023 End: 11-13-2023 take 20 mL intravenously every hour 20 mL/hr, intravenous, Continuous, Starting on Sun11/10/23 at 1045, Preprocedure Start: 11-09-2023 End: 11-13-2023 take 75 mL intravenously every hour 75 mL/hr, intravenous, Continuous, Starting on Sun11/09/23 at 1327, On hold since 11/11/2023 at 0754 until manually unheld Start: 11-09-2023 End: 11-13-2023 sodium chloride 0.9 % flush 10 mL Start: 01-07-2023 End: 01-09-2023 sodium chloride 0.9 % flush 10 mL Start: 01-07-2023 End: 01-08-2023 sodium chloride 0.9 % infusi on tamsulosin hydrochloride 0.4 mg oral capsule (13 sources) alpha-Adrenergic Emory Start: 01-03-2023 End: 11-13-2023 take 1 capsule by mouth once daily at breakfast 0.4 mg, oral, Daily with breakfast, First dose on Sun11/09/23 at 0819, For oral administration: capsules should be swallowed whole (Do not crush, chew, or open). For tube administration: open capsule and administer with water (granules should NOT be crushed). valsartan 160 mg oral tablet (11 sources) Angiotensin 2 Receptor Emory Start: 01-08-2023 End: 01-09-2023 take 320 mg by mouth once daily 320 mg, oral, Daily, First dose on Sun01/08/23 at 1045 Start: 06-24-2014 End: 10-15-2024 take 1 tablet by mouth once daily Valsartan (Diovan) 320 mg tablet Discontinued 320 mg PO DAILY January 03, 2023 1:00am October 15, 2024 2:27pm vancomycin (VANCOCIN) 2,000 mg in sodium chloride 0.9 % 500 mL IVPB (1 source) Start: 11-09-2023 End: 11-09-2023 2,000 mg, intravenous, at 250 mL/hr, Administer over 120 Minutes, Once, On Sun11/09/23 at 0028, For 1 dose, Indication: Skin/Soft Tissue vancomycin (VANCOCIN) 2,500 mg in sodium chloride 0.9 % 500 mL IVPB (1 source) Start: 01-06-2023 End: 01-07-2023 vancomycin (VANCOCIN) 2,500 mg in sodium chloride 0.9 % 500 mL IVPB vancomycin (VANCOCIN) 750 mg in sodium chloride 0.9 % 250 mL IVPB (1 source) Start: 01-07-2023 End: 01-09-2023 take 750 mg intravenously every twelve hours vancomycin (VANCOCIN) 750 mg in sodium chloride 0.9 % 250 mL IVPB Problems Active Problems Problem Classification Problem Date Documented Date Episodic/Chronic Cancer of head and neck (4 sources) History of malignant neoplasm of head and/or neck; Translations: [Personal history of malignant neoplasm of unspecified site of lip, oral cavity, and pharynx] 10-24-2024 Episodic Cardiac dysrhythmias (1 source) Unspecified atrial fibrillation; Translations: [Unspecified atrial fibrillation] Onset: 11-26-2024 Chronic Cardiac dysrhythmias (1 source) Bradycardia, unspecified; Translations: [Bradycardia, unspecified] Onset: 11-26-2024 Episodic Chronic obstructive pulmonary disease and bronchiectasis (4 sources) Chronic obstructive lung disease; Translations: [Chronic obstructive pulmonary disease, unspecified] 10-30-2023 Chronic Chronic ulcer of skin (19 sources) Non-pressure chronic ulcer of other part of right foot limited to breakdown of skin; Translations: [Ulcer of other part of foot] Onset: 01-05-2023 01-05-2023 Chronic Conduction disorders (3 sources) Left anterior fascicular block; Translations: [Left anterior fascicular block] Onset: 11-20-2023 11-20-2023 Chronic Congestive heart failure; nonhypertensive (7 sources) Acute congestive heart failure; Translations: [Heart failure, unspecified] Onset: 11-09-2023 11-09-2023 Chronic Coronary atherosclerosis and other heart disease (15 sources) Atherosclerotic heart disease of quechan coronary artery without angina pectoris; Translations: [Ischemic cardiomyopathy] Onset: 11-20-2023 11-20-2023 Chronic Diabetes mellitus with complications (11 sources) Foot ulcer due to type 2 diabetes mellitus; Translations: [Type 2 diabetes mellitus with foot ulcer] Onset: 11-12-2024 10-24-2024 Chronic Disorders of lipid metabolism (3 sources) Hyperlipidemia, unspecified; Translations: [Hyperlipidemia] Onset: 11-20-2023 11-20-2023 Chronic Essential hypertension (2 sources) Hypertensive disorder; Translations: [Essential (primary) hypertension] 10-24-2024 Chronic Gout and other crystal arthropathies (3 sources) 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; Translations: [Gout, unspecified] Onset: 02-08-2022 Chronic Infective arthritis and osteomyelitis (except that caused by tuberculosis or sexually transmitted disease) (4 sources) Osteomyelitis; Translations: [Osteomyelitis, unspecified] Onset: 11-09-2023 11-09-2023 Chronic Open wounds of extremities (3 sources) Disorder of foot; Translations: [Unspecified open wound, right foot, initial encounter] Onset: 12-21-2022 12-21-2022 Episodic Open wounds of extremities (2 sources) Open wound of left great toe; Translations: [Unspecified open wound of left great toe without damage to nail, initial encounter] 11-07-2023 Episodic Other connective tissue disease (4 sources) Pain in left foot; Translations: [Pain in left foot] 10-17-2024 Episodic Other connective tissue disease (2 sources) Pain in left foot; Translations: [Pain in left foot] Onset: 11-12-2024 Episodic Other injuries and conditions due to external causes (1 source) Injury of great toe; Translations: [Unspecified injury of left foot, initial encounter] 10-30-2023 Episodic Other nervous system disorders (3 sources) Neuropathy; Translations: [Hereditary and idiopathic neuropathy, unspecified] 01-03-2023 Chronic Other nervous system disorders (1 source) Hereditary and idiopathic neuropathy, unspecified; Translations: [Mononeuritis of unspecified site] 01-11-2023 Chronic Other nervous system disorders (4 sources) Polyneuropathy; Translations: [Polyneuropathy, unspecified] 10-24-2024 Chronic Other non-traumatic joint disorders (1 source) Acute ankle pain; Translations: [Pain in left ankle and joints of left foot] Episodic Other non-traumatic joint disorders (2 sources) Pain in left ankle and joints of left foot; Translations: [Pain in left ankle and joints of left foot] Onset: 02-08-2022 Episodic Other non-traumatic joint disorders (1 source) Pain in elbow; Translations: [Pain in right elbow] 01-05-2023 Episodic Other non-traumatic joint disorders (1 source) Effusion of right knee joint; Translations: [Effusion, right knee] 01-06-2023 Episodic Other screening for suspected conditions (not mental disorders or infectious disease) (1 source) Encounter for screening for other disorder; Translations: [Encounter for screening for other disorder] Onset: 11-03-2024 Episodic Peripheral and visceral atherosclerosis (13 sources) Peripheral vascular disease; Translations: [Peripheral vascular disease, unspecified] Onset: 11-20-2023 01-03-2023 Chronic Residual codes; unclassified (1 source) Other specified postprocedural states; Translations: [Other specified postprocedural states] Onset: 11-20-2023 Episodic Skin and subcutaneous tissue infections (12 sources) Cellulitis of right lower limb; Translations: [Cellulitis of right lower limb] Onset: 01-06-2023 01-05-2023 Episodic Past or Other Problems Problem Classification Problem Date Documented Da te Episodic/Chronic Fever of unknown origin (4 sources) Fever; Translations: [Fever, unspecified] Onset: 01-06-2023 Resolved: 01-09-2023 01-09-2023 Episodic Other non-traumatic joint disorders (2 sources) Pain in right knee; Translations: [Pain in joint, lower leg] Onset: 01-05-2023 01-05-2023 Episodic Other non-traumatic joint disorders (1 source) Effusion, right knee; Translations: [Effusion, right knee] Onset: 01-06-2023 Episodic Other non-traumatic joint disorders (1 source) Pain in right elbow; Translations: [Pain in right elbow] Onset: 01-05-2023 Episodic Results Test Name Value Interpretation Reference Range Facility Cardiology Visit Reporton Cardiology Visit Report [facility] [address] [place] [address]. [address] [place] [address] OFFICE VISIT Date of Service: 11/26/24 MR#: [id number] Acct: [id number] Name: YONI VILLALPANDO Rep #: [id number] : 1945 Provider: Dr. Baljinder Leach MD Age/Sex: 79/M [place] [facility] [place] [place] Status: Signed HPI HPI History of Present Illness Details: The patient is a 79-year-old male with a history of IN, CAD, and COPD, presenting for preoperative evaluation prior to foot surgery scheduled for next Sunday. The patient has a history of IN in 2009, at which time a stent was placed. He has not undergone any recent stress testing. An echocardiogram performed last year revealed hypokinesis of the inferior wall basal inferolateral basal inferior wall and basal inferoseptal wall. There were remaining segments were noted to be normal. The ejection fraction was 55 to 60%.. He also has a history of peripheral artery disease with stent placement in the lower extremities. His physical exam demonstrates clear lung perez regular rate and rhythm and no pedal edema his electrocardiogram demonstrates sinus bradycardia with a previous inferior myocardial infarction premature ventricular complexes are present. He denies any current chest pain or dyspnea. He has a history of hypertension and denies any history of diabetes mellitus. He quit smoking in 2009. He is currently taking amlodipine, aspirin, finasteride, metoprolol, Entresto and furosemide. Intake Vital Signs 10/30/23 12:57 10/15/24 13:57 11/26/24 09:45 Height 5 ft 10 in 5 ft 10 in 5 ft 10 in Weight: 204 lb BMI 29.2 BP 112/77 Blood Pressure Location Lt brachial Position Sitting Respiration 16 Pulse 81 Pulse Source Monitor Intake Visit Reasons: EST CARE (SELF) Manufacturers Representative Required: No Accompanied by: Self Is patient in pain?: No Allergies No Known Allergies Allergy (Verified 11/26/24 10:17) Medications ???Medication ???Instructions ???Recorded ???Confirmed ???Type albuterol 90 mcg/actuation aerosol mcg inhalation .2 puffs PRN SOB 01/03/23 11/26/24 History inhaler aspirin 81 mg tablet,delayed 81 mg PO DAILY 01/03/23 11/26/24 H istory release (Adult Low Dose Aspirin) pantoprazole 40 mg tablet,delayed 40 mg PO DAILY 01/03/23 11/26/24 History release tamsulosin 0.4 mg capsule (Flomax) 0.4 mg PO DAILY 01/03/23 5 History tiotropium bromide 18 mcg capsule 1 cap inhalation DAILY 01/03/23 1 History with inhalation device (Spiriva with HandiHaler) finasteride 5 mg tablet 5 mg PO QDAY 11/24/24 11/26/24 His tory fluticasone propionate 115 2 puff inhalation BID 11/24/24 History mcg-salmeterol 21 mcg/actuation HFA inhaler (Advair HFA) furosemide 40 mg tablet 40 mg PO QDAY 11/24/24 11/26/24 Hi story metoprolol succinate 25 mg 25 mg PO QDAY 11/24/24 11/26/24 Hi story tablet,extended release 24 hr sacubitril 24 mg-valsartan 26 mg 0.5 tab PO BID 11/24/24 11/26/24 H istory tablet (Entresto) ProstateMD PO 11/26/24 11/26/24 History amlodipine 5 mg tablet 5 mg PO QDAY 11/26/24 11/26/24 His tory febuxostat 40 mg tablet (Uloric) 40 mg PO QDAY 11/26/24 11/26/24 Hi story nystatin 100,000 unit/gram topical 1 applic topical TID 11/26/24 History powder Ejection fraction %: 55 Have you fallen in the past year?: No PFSH Medical History Ischemic cardiomyopathy Bradycardia Obesity TYSON (obstructive sleep apnea) Hyperlipidemia Afib CHF (congestive heart failure) Vitamin D deficiency BPH (benign prostatic hyperplasia) Restless legs GERD (gastroesophageal reflux disease) CVA (cerebral vascular accident) Gout Pain in left foot Acute painful diabetic polyneuropathy Idiopathic neuropathy Peripheral vascular disease Non-pressure chronic ulcer of other part of right foot with fat layer exposed Diabetic foot ulcer associated with type 2 diabetes mellitus Polyneuropathy Intermittent claudication History of myocardial infarction Coronary artery disease History of throat cancer Non-pressure chronic ulcer of other part of left foot with fat layer exposed HTN (hypertension) Throat cancer COPD (chronic obstructive pulmonary disease) Surgical History History of loop recorder (01/18/18) History of percutaneous angioplasty History of amputation of toe History of hip replacement History of throat surgery Family History Father Colon cancer Mother Cancer Sister Cancer Sister Hypertension Brother Cancer Social History Smoking Status: Former smoker alcohol intake: never s (more content not included)... Normal [facility] Foot min 3 Viewson 5 Foot min 3 Views [facility] [address] [place] [address] Foot min 3 Views MR#: [id number] Acct: [id number] Name: YONI VILLALPANDO Rep #: [id number] : 1945 M 79 From: Brian espinoza MD PCP: Dr. Rey Greenwood MD Status: REG RCR Study: Foot min 3 Views Date of Exam: 11/14/24 Exam# [id number] Ordering Dr: Nathen Gonzalez DPM PROCEDURE: FOOT MIN 3 VIEWS 11/14/2024 REASON FOR EXAM: R FOOT ULCER TECHNIQUE: Procedure Code: RADFO Modality: DX Procedure: FOOT MIN 3 VIEWS Laterality: Right foot COMPARISON: None FINDINGS: Bones: No bony destruction is seen. There is flattening of the head of the 2nd metatarsal suggestive of old Freiberg's fracture. 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 No fracture is present. Soft tissues: Soft tissue swelling. Other: RAD/Foot min 3 Views IMPRESSION: No acute abnormality is seen. Reading Location: [id number] CC: KATHERINE Gonzalez; Dr. Rey Greenwood MD Petroleum Analyst: Signed Normal [facility] Arterial Doppler ultrasound reportOrdered By: Tex Inman on 10-30-2024 Study report [facility] [address] [place] [address] US Art Duplex Unilat Lower Ext 10/29/24 0938 MR#: [id number] Acct: [id number] Name: YONI VILLALPANDO Rep #:[id number] : 1945 79 From: Tex Inman MD Attending Dr: Dr. Nathen Gonzalez DPM Status: REG RCR Ordering Dr: Tex Inman MD Date: 10/29/24 Location: [facility] Sex: M C Admitted: Reason For Study Reason For Study: PAD Left Velocities Ext Iliac Artery, dist = 97.5 cm./sec. Common Femoral Artery, mid = 107.3 cm./sec. Supf. Femoral Artery, prox = 319.5 cm./sec. Supf. Femoral Artery, mid = 140.3 cm./sec. SFA distal, prox to stent, 160.4 cm/sec. SFA distal, prox stent, 119 cm/sec. Anatoly prox, mid stent, 92 cm/sec. Anatoly mid, distal stent, 92 cm/sec. Anatoly distal, distal to stent, 85.4 cm/sec. Profunda Femoral Artery = 94.2 cm./sec. Post. Tibial Artery,prox = 103 cm./sec. Post Tibial Artery, mid = 174.7 cm./sec. Post Tibial Artery, dist. = 117.7 cm./sec. Peroneal Artery, prox = 35.5 cm./sec. Peroneal Artery, mid= 33.6 cm./sec. Peroneal Artery,dist. = 42.1 cm./sec. Ant.Tibial Artery, prox = 132.3 cm./sec. Ant Tibial Artery, mid = 118.2 cm./sec. Ant. Tibial Artery, distal = 92.3 cm./sec. Procedure Exam performed in department. /US Art Duplex Unilat Lower Ext Interpretation Summary The arterial tree in the left lower extremity appears patent throughout. There appears to be a stenosis of 50-99% in the proximal left superficial femoral artery based upon velocity criteria. An patent, intra-arterial stent is noted in the distal left superficial femoral artery which extends into the left popliteal artery. Ordering Physician: Tex Inman Referring Physician: Rey Greenwood Chi Performed By: Renee Ramesh RVT 10/30/24 1235 Date _ Tex Inman MD CC: DPM Dr. Nathen Gonzalez; Dr. Tex Inman MD; Dr. Rey Greenwood MD; Ken Dill ~ Date Dictated: 10/29/24937 Date Transcribed: 10/30/24 1235 Petroleum Analyst: Signed [facility] Work Phone: US Art Duplex Unilat Lower E xton 10-29-2024 US Art Duplex Unilat Lower Ext [facility] [address] [place] [address] US Art Duplex Unilat Lower Ext 10/29/24937 MR#: [id number] Acct: [id number] Name: YONI VILLALPANDO Rep #: [id number] : 1945 79 From: Tex Inman MD Attending Dr: Dr. Nathen Gonzalez, DPM Status: RE G RCR Ordering Dr: Tex Inman MD Date: 10/29/24 Location: [facility] Sex: M C Admitted: Reason For Study Reason For Study: PAD Left Velocities Ext Iliac Artery, dist = 97.5 cm./sec. Common Femoral Artery, mid = 107.3 cm./sec. Supf. Femoral Artery, prox = 319.5 cm./sec. Supf. Femoral Artery, mid = 140.3 cm./sec. SFA distal, prox to stent, 160.4 cm/sec. SFA distal, prox stent, 119 cm/sec. Anatoly prox, mid stent, 92 cm/sec. Anatoly mid, distal stent, 92 cm/sec. Anatoly distal, distal to stent, 85.4 cm/sec. Profunda Femoral Artery = 94.2 cm./sec. Post. Tibial Artery, prox = 103 cm./sec. Post Tibial Artery, mid = 174.7 cm./sec. Post Tibial Artery, dist. = 117.7 cm./sec. Peroneal Artery, prox = 35.5 cm./sec. Peroneal Artery, mid = 33.6 cm./sec. Peroneal Artery,dist. = 42.1 cm./sec. Ant.Tibial Artery, prox = 132.3 cm./sec. Ant Tibial Artery, mid = 118.2 cm./sec. Ant. Tibial Artery, distal = 92.3 cm./sec. Procedure Exam performed in department. VL/US Art Duplex Unilat Lower Ext Interpretation Summary The arterial tree in the left lower extremity appears patent throughout. There appears to be a stenosis of 50-99% in the proximal left superficial femoral artery based upon velocity criteria. An patent, intra-arterial stent is noted in the distal left superficial femoral artery which extends into the left popliteal artery. Ordering Physician: Tex Inman Referring Physician: Rey Greenwood Chi Performed By: Renee Ramesh RVT 10/30/24 1235 Date Tex Inman MD CC: DPDavide Gonzalez; Dr. Tex Inman MD; Dr. Rey Greenwood MD; Ken Dill Date Dictated: 10/29/2438 Date Transcribed: 10/30/24 123 Petroleum Analyst: Signed Normal [facility] History AND Physic jina 10-24-2024 Wound Ctr History & Physical [facility] [address] [place] [address] H P Exam - Wound Care 10/24/24 1529 MR#: [id number] Acct: [id number] Name: YONI VILALLPANDO Rep #: [id number] : 1945 79 From: Tex Inman MD PCP: Dr. Rey Greenwood MD Status:[facility] Location: [facility] [place] History of Present Illness Date of Service: 10/21/24 Chief Complaint: Diabetic ulceration of the left great toe History of Wound: The patient is seen on behalf of Dr. Nathen Gonzalez, Podiatric specialist, who is the patient's regular Wound Center provider. Patient's history has been previously documented by Dr. Gonzalez. He is under treatment for an ulceration of the plantar aspect of the left great toe. He is a known diabetic, and has a history of myocardial infarction and congestive heart failure. He denies a history of cerebrovascular accident, pulmonary disease, renal disease, thyroid disease, and hyperlipidemia. The patient is not currently a smoker, but formerly smoked 1 pack of cigarettes per day for approximately 45 years. 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 He has a history of peripheral arterial occlusive disease, and indicates that 2 vascular stents have been placed in his right lower extremity, and 1 in his left lower extremity. The patient is ambulatory, but suffers from classic symptoms of intermittent claudication at short distances of ambulation. With 2 blocks of ambulation, the patient experiences calf pain, which is typically relieved by rest. Current management involves the use of Betadine topically to his left great toe ulceration. [facility] Medical History Diabetic foot ulcer associated with type 2 diabetes mellitus Polyneuropathy Intermittent claudication History of myocardial infarction Coronary artery disease History of throat cancer Non-pressure chronic ulcer of other part of left foot with fat layer exposed HTN (hypertension) Throat cancer COPD (chronic obstructive pulmonary disease) Home Medications ???Medication ???Instructions ???Recorded ???Last Taken ???Type albuterol 90 mcg/actuation aerosol mcg inhalation .2 puffs PRN SOB 01/03/23 Unknown History inhaler amlodipine 5 mg tablet (Norvasc) 5 mg PO DAILY 01/03/23 Unknown His tory aspirin 81 mg tablet,delayed 81 mg PO DAILY 01/03/23 Unknown Hi story release (Adult Low Dose Aspirin) carvedilol 3.125 mg tablet 3.125 mg PO BID 01/03/23 Unknown H istory cholecalciferol (vitamin D3) 1,250 1,250 mcg PO QWEEK 01/03/23 Unkn own History mcg (50,000 unit) capsule dutasteride 0.5 mg capsule 0.5 mg PO DAILY 01/03/23 Unknown H istory (Avodart) fluticasone propionate 115 2 inh inhalation DAILY 01/03/23 Un known History mcg-salmeterol 21 mcg/actuation HFA inhaler (Advair HFA) furosemide 40 mg tablet 40 mg PO QODAY 01/03/23 Unknown Hi story pantoprazole 40 mg tablet,delayed 40 mg PO DAILY 01/03/23 Unknown H istory release potassium chloride 10 mEq 10 meq PO DAILY 01/03/23 Unknown H istory tablet,extended release(part/cryst) (Klor-Con M) ropinirole 2 mg tablet 2 mg PO BID 01/03/23 Unknown Histo ry sour hernandez extract 1,000 mg mg PO gout 01/03/23 Unknown Histor y capsule (Tart Hernandez Extract) spironolactone 25 mg tablet 25 mg PO DAILY 01/03/23 Unknown Hi story (Aldactone) tamsulosin 0.4 mg capsule (Flomax) 0.4 mg PO DAILY 01/03/23 Unknown History tiotropium bromide 18 mcg capsule 1 cap inhalation DAILY 01/03/23 U nknown History with inhalation device (Spiriva with HandiHaler) cephalexin 500 mg capsule 500 mg PO Q6 #40 CAPSULES 10/30/23 Unknown Rx sacubitril 24 mg-valsartan 26 mg 1 tab PO BID 10/15/24 Unknown Hist ory tablet (Entresto) Allergy/AdvReac Type Severity Reaction Status Date / Time No Known Allergies Allergy Verified 10/30/23 12:59 Surgical History History of throat surgery Social History Smoking Status: Former smoker Physical Exam Const alert, oriented x3, no apparent distress, no limitations and well nourished General Appearance: cooperative, comfortable and well developed Orientation / Consciousness: awake, oriented to person, oriented to place and oriented to time HEENT normocephalic and head/scalp atraumatic Head and Scalp: normal to inspection, normocephalic and atraumatic Nose: external nose normal External Ear: external ears normal Eyes EOMs intact bilaterally General Eye: normal appearance of both eyes Resp normal respiratory effort, normal air movement, no retractions and no use of accessory muscles Effort and Inspection: able to speak in complete sentences Extr (more content not included)... Normal [facility] Absolute lymphocyte countOrd ered By: Rey Greenwood on 10-23-2024 Lymphocytes Auto (Unsp spec) [#/Vol] 1.82 10*3/uL 0.83-4.51 [facility] Absolute neutrophil countOrd ered By: Rey Greenwood on 10-23-2024 Neutrophils (Bld) [#/Vol] 5.7 10*3/uL 2.0-7.7 [facility] Anion gap in Serum or Plasma Ordered By: Rey Greenwood on 10-23-2024 Anion gap [Moles/Vol] 11 mmol/L 5- [facility] Automated lymphocyte count a s percentage of total leukocytesOrdered By: Rey Timo on 10-23-2024 Lymphocytes/100 WBC Auto (Unsp spec) 21.7 % - [facility] BUN/creatinine ratioOrdered By: [facility] on 10-23-2024 Urea nitrogen/Creatinine [Mass ratio] 16.6 mg/mg - [facility] Basophil percentageOrdered B y: Rey Greenwood on 10-23-2024 Basophils/100 WBC (Bld) 0.1 % 0- [facility] Bilirubin, totalOrdered By: Rey Greenwood on 10-23-2024 Bilirubin [Mass/Vol] 0.64 mg/dL 0.00-1.30 [facility] CBC W/Diff, Automatedon 10-13 Absolute Lymph 1.82 X10 3/uL Normal 0.83-4.51 [facility] Comment on above: Performed By: #### L 506.1001, L3890.6301, L100.0100, L501.1400, L500.4100, L500.4050, L501.9520 #### [facility] [address] [place], [address] Absolute Neut 5.7 X10 3/uL Normal 2.0-7.7 [facility] Comment on above: Performed By: #### L 506.1001, L3890.6301, L100.0100, L501.1400, L500.4100, L500.4050, L501.9520 #### [facility] [address] [place], [address] Basophils/100 WBC (Bld) 0.1 % Normal 0-1 [facility] Comment on above: Performed By: #### L 506.1001, L3890.6301, L100.0100, L501.1400, L500.4100, L500.4050, L501.9520 #### [facility] [address] [place], [address] Eosinophils/100 WBC (Bld) 1.3 % Normal 0-5 [facility] Comment on above: Performed By: #### L 506.1001, L3890.6301, L100.0100, L501.1400, L500.4100, L500.4050, L501.9520 #### [facility] [address] [place], [address] Erythrocyte distribution width (RBC) [Ratio] 14.1 % Normal 11.6-14.6 [facility] Comment on above: Performed By: #### L 506.1001, L3890.6301, L100.0100, L501.1400, L500.4100, L500.4050, L501.9520 #### [facility] [address] [place], [address] Hematocrit (Bld) [Volume fraction] 40.6 % Normal 40-54 [facility] Comment on above: Performed By: #### L 506.1001, L3890.6301, L100.0100, L501.1400, L500.4100, L500.4050, L501.9520 #### [facility] [address] [place], [address] Hemoglobin (Bld) [Mass/Vol] 13.4 g/dL Normal 13.0-16.5 [facility] Comment on above: Performed By: #### L 506.1001, L3890.6301, L100.0100, L501.1400, L500.4100, L500.4050, L501.9520 #### [facility] [address] [place], [address] IG% 0.600 Normal 0.0-0.9 [facility] Comment on above: Result Comment: IG% - Immature Granulocytes (promyelocytes, myelocytes and metamyelocytes) > 1% indicates that a LEFT SHIFT is Present. Performed By: #### L 506.1001, L3890.6301, L100.0100, L501.1400, L500.4100, L500.4050, L501.9520 #### [facility] [address] [place], [address] Lymphocytes/100 WBC (Bld) 21.7 % Normal 19-41 [facility] Comment on above: Performed By: #### L 506.1001, L3890.6301, L100.0100, L501.1400, L500.4100, L500.4050, L501.9520 #### [facility] [address] [place], [address] MCH (RBC) [Entitic mass] 31.1 pg Normal 27.0-32.0 [facility] Comment on above: Performed By: #### L 506.1001, L3890.6301, L100.0100, L501.1400, L500.4100, L500.4050, L501.9520 #### [facility] [address] [place], [address] MCHC (RBC) [Mass/Vol] 33.0 g/dL Normal 32-36 [facility] Comment on above: Performed By: #### L 506.1001, L3890.6301, L100.0100, L501.1400, L500.4100, L500.4050, L501.9520 #### [facility] [address] [place], [address] MCV (RBC) [Entitic vol] 94.2 fL High 80-94 [facility] Comment on above: Performed By: #### L 506.1001, L3890.6301, L100.0100, L501.1400, L500.4100, L500.4050, L501.9520 #### [facility] [address] [place], [address] Monocytes/100 WBC (Bld) 7.9 % Normal 0-10 [facility] Comment on above: Performed By: #### L 506.1001, L3890.6301, L100.0100, L501.1400, L500.4100, L500.4050, L501.9520 #### [facility] [address] [place], [address] Neutrophils/100 WBC (Bld) 68.4 % Normal 47-70 [facility] Comment on above: Performed By: #### L 506.1001, L3890.6301, L100.0100, L501.1400, L500.4100, L500.4050, L501.9520 #### [facility] [address] [place], [address] Nucleated RBC (Bld) [#/Vol] 0 10*3/uL Normal 0-5 [facility] Comment on above: Performed By: #### L 506.1001, L3890.6301, L100.0100, L501.1400, L500.4100, L500.4050, L501.9520 #### [facility] [address] [place], [address] Platelet mean volume (Bld) [Entitic vol] 11.2 fL Normal 6.2-12.0 [facility] Comment on above: Performed By: #### L 506.1001, L3890.6301, L100.0100, L501.1400, L500.4100, L500.4050, L501.9520 #### [facility] [address] [place], [address] Platelets (Bld) [#/Vol] 154 10*3/uL Normal 150-450 [facility] Comment on above: Performed By: #### L 506.1001, L3890.6301, L100.0100, L501.1400, L500.4100, L500.4050, L501.9520 #### [facility] [address] [place], [address] RBC (Bld) [#/Vol] 4.31 10*6/uL Low 4.6-6.2 [facility] Comment on above: Performed By: #### L 506.1001, L3890.6301, L100.0100, L501.1400, L500.4100, L500.4050, L501.9520 #### [facility] [address] [place], [address] RDW SD 48.2 fl High 35.1-43.9 [facility] Comment on above: Performed By: #### L 506.1001, L3890.6301, L100.0100, L501.1400, L500.4100, L500.4050, L501.9520 #### [facility] [address] [place], [address] WBC (Bld) [#/Vol] 8.4 10*3/uL Normal 4.4-11.0 [facility] Comment on above: Performed By: #### L 506.1001, L3890.6301, L100.0100, L501.1400, L500.4100, L500.4050, L501.9520 #### [facility] [address] [place], [address] Calculated very low density lipoprotein (VLDL) cholesterol measurementOrdered By: Rey Greenwood on 10-23-2024 Calculated very low density lipoprotein (VLDL) cholesterol measurement 18 mg/dL 5-40 [facility] Carbon dioxide, total [Moles /volume] in Central venous bloodOrdered By: Rey Greenwood on 10-23-2024 CO2 [Moles/Vol] 25.9 mmol/L 21.0-32.0 [facility] Chloride assayOrdered By: Rolando Greenwood on 10-23-2024 Chloride [Moles/Vol] 106 mmol/L 98-108 [facility] Comprehensive Metabolic Prof ilon 10-23-2024 Albumin [Mass/Vol] 4.0 g/dL Normal 3.4-4.8 [facility] Comment on above: Performed By: #### L 506.1001, L3890.6301, L100.0100, L501.1400, L500.4100, L500.4050, L501.9520 #### [facility] [address] [place], [address] Albumin/Globulin [Mass ratio] 1.3 {ratio} Normal 0.9-2.4 [facility] Comment on above: Performed By: #### L 506.1001, L3890.6301, L100.0100, L501.1400, L500.4100, L500.4050, L501.9520 #### [facility] [address] [place], [address] ALK PHOS 122 U/L Normal 40-129 [facility] Comment on above: Performed By: #### L 506.1001, L3890.6301, L100.0100, L501.1400, L500.4100, L500.4050, L501.9520 #### [facility] [address] [place], [address] ALT [Catalytic activity/Vol] 18 U/L Normal <=46 [facility] Comment on above: Performed By: #### L 506.1001, L3890.6301, L100.0100, L501.1400, L500.4100, L500.4050, L501.9520 #### [facility] [address] [place], [address] AST [Catalytic activity/Vol] 24 U/L Normal <=37 [facility] Comment on above: Performed By: #### L 506.1001, L3890.6301, L100.0100, L501.1400, L500.4100, L500.4050, L501.9520 #### [facility] [address] [place], [address] Bilirubin [Mass/Vol] 0.64 mg/dL Normal 0.00-1.30 [facility] Comment on above: Performed By: #### L 506.1001, L3890.6301, L100.0100, L501.1400, L500.4100, L500.4050, L501.9520 #### [facility] [address] [place], [address] BUN/CRE 16.6 RATIO Normal 10-20 [facility] Comment on above: Performed By: #### L 506.1001, L3890.6301, L100.0100, L501.1400, L500.4100, L500.4050, L501.9520 #### [facility] [address] [place], [address] Calcium [Mass/Vol] 9.1 mg/dL Normal 7.6-11.0 [facility] Comment on above: Performed By: #### L 506.1001, L3890.6301, L100.0100, L501.1400, L500.4100, L500.4050, L501.9520 #### [facility] [address] [place], [address] Chloride [Moles/Vol] 106 mmol/L Normal 98-108 [facility] Comment on above: Performed By: #### L 506.1001, L3890.6301, L100.0100, L501.1400, L500.4100, L500.4050, L501.9520 #### [facility] [address] [place], [address] CO2 [Moles/Vol] 25.9 mmol/L Normal 21.0-32.0 [facility] Comment on above: Performed By: #### L 506.1001, L3890.6301, L100.0100, L501.1400, L500.4100, L500.4050, L501.9520 #### [facility] [address] [place], [address] Creatinine [Mass/Vol] 0.99 mg/dL Normal 0.70-1.20 [facility] Comment on above: Performed By: #### L 506.1001, L3890.6301, L100.0100, L501.1400, L500.4100, L500.4050, L501.9520 #### [facility] [address] [place], [address] GAP 11 Normal 5-15 [facility] Comment on above: Performed By: #### L 506.1001, L3890.6301, L100.0100, L501.1400, L500.4100, L500.4050, L501.9520 #### [facility] [address] [place], [place], [id number] (534) GFR/1.73 sq M.predicted among non-blacks MDRD (S/P/Bld) [Vol rate/Area] 79 mL/min/{1.73_m2} Normal >60 [facility] Comment on above: Result Comment: mL/m in/1.73m2 CKD-EPI Creatinine Equation (2020) Performed By: #### L 506.1001, L3890.6301, L100.0100, L501.1400, L500.4100, L500.4050, L501.9520 #### [facility] [address] [place], [address] Globulin (S) [Mass/Vol] 3.0 g/dL Normal 2.2-4.2 [facility] Comment on above: Performed By: #### L 506.1001, L3890.6301, L100.0100, L501.1400, L500.4100, L500.4050, L501.9520 #### [facility] [address] [place], [address] Glucose [Mass/Vol] 95 mg/dL Normal 70-99 [facility] Comment on above: Performed By: #### L 506.1001, L3890.6301, L100.0100, L501.1400, L500.4100, L500.4050, L501.9520 #### [facility] [address] [place], [address] Potassium [Moles/Vol] 3.9 mmol/L Normal 3.3-5.1 [facility] Comment on above: Performed By: #### L 506.1001, L3890.6301, L100.0100, L501.1400, L500.4100, L500.4050, L501.9520 #### [facility] [address] [place], [address] Sodium [Moles/Vol] 144 mmol/L Normal 133-145 [facility] Comment on above: Performed By: #### L 506.1001, L3890.6301, L100.0100, L501.1400, L500.4100, L500.4050, L501.9520 #### [facility] [address] [place], [address] T PROT 7.0 g/dL Normal 5.9-8.4 [facility] Comment on above: Performed By: #### L 506.1001, L3890.6301, L100.0100, L501.1400, L500.4100, L500.4050, L501.9520 #### [facility] [address] [place], [address] Urea nitrogen [Mass/Vol] 16 mg/dL Normal 4-19 [facility] Comment on above: Performed By: #### L 506.1001, L3890.6301, L100.0100, L501.1400, L500.4100, L500.4050, L501.9520 #### [facility] [address] [place], [address] Eosinophil percentageOrdered By: Rey Keenanok on 10-23-2024 Eosinophils/100 WBC (Bld) 1.3 % 0-5 [facility] Erythrocyte distribution wid th ratioOrdered By: Rey Timo on 10-23-2024 Erythrocyte distribution width (RBC) [Ratio] 14.1 % 11.6-14.6 [facility] Erythrocyte distribution wid th standard deviationOrdered By: Rey Timo on 10-23-2024 Erythrocyte distribution width (RBC) [Ratio] 48.2 fl High 35.1-43.9 [facility] Glomerular filtration rate ( GFR) estimation/1.73 sq m using serum, plasma, or whole bOrdered By: Rey Greenwood on 10-23-2024 GFR/1.73 sq M.predicted among non-blacks MDRD (S/P/Bld) [Vol rate/Area] 79 mL/min/{1.73_m2} >60 [facility] Comment on above: mL/min/1.73m2 CKD-EP I Creatinine Equation (2020) Hematocrit Auto (Bld) [Volum e fraction]Ordered By: Rey Greenwood on 10-23-2024 Hematocrit (Bld) [Volume fraction] 40.6 % 40-54 [facility] Hemoglobin measurementOrdere d By: Rey Greenwood on 10-23-2024 Hemoglobin (Bld) [Mass/Vol] 13.4 g/dL 13.0-16.5 [facility] Hepatitis C Antibodyon 10-23 Hepatitis C Ab Non-Reactive Normal Nonreactive [facility] Comment on above: Result Comment: Reac tive: Presumptive evidence of antibodies to HCV. Follow CDC recommendations for supplemental testing. Non-Reactive: Antibodies to HCV were not detected; does not exclude the possibility of exposure to HCV Reactive Results are presumptive evidence of antibodies to HCV. Follow CDC recommendations for supplemental testing. Order confirmation testing: HCV Quant by PCR testing - HCVPCR #[id number] Non Reactive: < 0.8 Equivocal: >/= 0.8 to < 1.0 Reactive: >/= 1.0 The [facility] requires that a reactive/equivocal HCV antibody result be sent out for confirmation. HCV Quant by PCR testing. Performed By: #### L 506.1001, L3890.6301, L100.0100, L501.1400, L500.4100, L500.4050, L501.9520 ####[facility] [address] [place], [place], [id number](125) Immature granulocytes/100 WB C Auto (Bld)Ordered By: Rey Greenwood on 10-23-2024 Immature granulocytes/100 WBC (Bld) 0.600 % 0.0-0.9 [facility] Comment on above: IG% - Immature Granu locytes (promyelocytes, myelocytes and metamyelocytes) > 1% indicates that a LEFT SHIFT is Present. LDL calc ser/plasOrdered By: Rey Greenwood on 10-23-2024 Cholesterol in LDL [Mass/Vol] 22 mg/dL [facility] Comment on above: Byoubjmjje=978-814 m g/dL & Higher Uxxd=816 mg/dL or greaterFriedwald Equation for LDL-C Laboratory - Chemistry and C hemistry - challengeOrdered By: Rey Greenwood on 10-23-2024 AST [Catalytic activity/Vol] 24 U/L <38 [facility] Lipid Profileon 10-23-2024 CHOL:HDL 1.95 Normal [facility] Comment on above: Performed By: #### L 506.1001, L3890.6301, L100.0100, L501.1400, L500.4100, L500.4050, L501.9520 #### [facility] [address] [place], [place], [id number] Cholesterol [Mass/Vol] 82 mg/dL Normal <=200 [facility] Comment on above: Result Comment: Chol esterol level, Desirable <200 mg/dL Borderline high cholesterol 200-239 mg/dL High cholesterol >=240 mg/dL Recommendations of the NCEP Adult Treatment Panel for the following risk-cutoff thresholds for the [place] population. Performed By: #### L 506.1001, L3890.6301, L100.0100, L501.1400, L500.4100, L500.4050, L501.9520 #### [facility] [address] [place], [address] Cholesterol in HDL [Mass/Vol] 42 mg/dL Normal [facility] Comment on above: Result Comment: Jory onal Cholesterol Education Program (NCEP) guidelines: <40 mg/dL: Low HDL-cholesterol (major risk factor for CHD) >= 60 mg/dL: High HDL-cholesterol (negative risk factor for CHD) HDL-cholesterol is affected by a number of factors, e.g. smoking, exercise, hormones, sex and age. Performed By: #### L 506.1001, L3890.6301, L100.0100, L501.1400, L500.4100, L500.4050, L501.9520 #### [facility] [address] [place], [address] Cholesterol in LDL [Mass/Vol] 22 mg/dL Normal [facility] Comment on above: Result Comment: Bord szoszh=979-528 mg/dL Higher Nluk=935 mg/dL or greater Friedwald Equation for LDL-C Performed By: #### L 506.1001, L3890.6301, L100.0100, L501.1400, L500.4100, L500.4050, L501.9520 #### [facility] [address] [place], [address] Cholesterol in VLDL [Mass/Vol] 18 mg/dL Normal 5-40 [facility] Comment on above: Performed By: #### L 506.1001, L3890.6301, L100.0100, L501.1400, L500.4100, L500.4050, L501.9520 #### [facility] [address] [place], [place], [id number] Triglyceride [Mass/Vol] 90 mg/dL Normal [facility] Comment on above: Result Comment: The drugs N-Acetylcysteine and Metamizole may falsely depress this assay. Normal range: <150 mg/dL Borderline High: 150-199 mg/dL High: 200-499 mg/dL Very High: >500 mg/dL Performed By: #### L 506.1001, L3890.6301, L100.0100, L501.1400, L500.4100, L500.4050, L501.9520 #### [facility] [address] [facility] [address], [address] MCV (mean corpuscular volume ) determinationOrdered By: Rey Greenwood on 10-23-2024 MCV (RBC) [Entitic vol] 94.2 fL High 80-94 [facility] Mean corpuscular hemoglobin (MCH) determinationOrdered By: Rey Greenwood on 10-23-2024 MCH (RBC) [Entitic mass] 31.1 pg 27.0-32.0 [facility] Mean corpuscular hemoglobin concentration (MCHC) determinationOrdered By: Rey Greenwood on 10-23-2024 MCHC (RBC) [Mass/Vol] 33.0 g/dL 32-36 [facility] Mean platelet volume determi nationOrdered By: Rey Greenwood on 10-23-2024 Platelet mean volume (Bld) [Entitic vol] 11.2 fL 6.2-12.0 [facility] Monocyte percentageOrdered B y: Rey Greenwood on 10-23-2024 Monocytes/100 WBC (Bld) 7.9 % 0-10 [facility] Neutrophil percentageOrdered By: Rey Greenwood on 10-23-2024 Neutrophils/100 WBC (Bld) 68.4 % 47-70 [facility] Nucleated red blood cell per centageOrdered By: Rey Greenwood on 10-23-2024 Nucleated RBC/100 WBC (Bld) [Ratio] 0 % 0-5 [facility] Platelet countOrdered By: Rolando Greenwood on 10-23-2024 Platelets (Bld) [#/Vol] 154 10*3/uL 150-450 [facility] Potassium measurement (mass/ volume)Ordered By: Rey Greenwood on 10-23-2024 Potassium (Unsp spec) [Mass/Vol] 3.9 mmol/L 3.3-5.1 [facility] RBC Auto (Bld) [#/Vol]Ordere d By: Rey Greenwood on 10-23-2024 RBC (Bld) [#/Vol] 4.31 10*6/uL Low 4.6-6.2 [facility] Screening total cholesterol/ high density lipoprotein (HDL) cholesterol ratioOrdered By: Rey Greenwood on 10-23-2024 Cholesterol.total/Chol esterol in HDL [Mass ratio] 1.95 {ratio} [facility] Serum creatinine measurement (mass/volume)Ordered By: Rey Greenwood on 10-23-2024 Creatinine [Mass/Vol] 0.99 mg/dL 0.70-1.20 [facility] Serum globulin measurementOr dered By: Rey Greenwood 10-23-2024 Globulin (S) [Mass/Vol] 3.0 g/dL 2.2-4.2 [facility] Serum glucose measurement (m ass/volume)Ordered By: Rey Greenwood 10-23-2024 Glucose [Mass/Vol] 95 mg/dL 70-99 [facility] Serum or plasma alanine hawk otransferase (ALT) measurementOrdered By: Rey Greenwood 10-23-2024 ALT [Catalytic activity/Vol] 18 U/L <47 [facility] Serum or plasma albumin james urement (mass/volume)Ordered By: Rey Greenwood 10-23-2024 Albumin [Mass/Vol] 4.0 g/dL 3.4-4.8 [facility] Serum or plasma albumin/glob ulin mass ratioOrdered By: Rey Greenwood 10-23-2024 Albumin/Globulin [Mass ratio] 1.3 {ratio} 0.9-2.4 [facility] Serum or plasma alkaline susie sphatase measurementOrdered By: Rey Greenwood 10-23-2024 ALP [Catalytic activity/Vol] 122 U/L 40-129 [facility] Serum or plasma calcium james urement (mass/volume)Ordered By: Rey Greenwood on 10-23-2024 Calcium [Mass/Vol] 9.1 mg/dL 7.6-11.0 [facility] Serum or plasma cholesterol in HDL measurement (mass/volume)Ordered By: Rey Greenwood on 10-23-2024 Cholesterol in HDL [Mass/Vol] 42 mg/dL >40 [facility] Comment on above: National Cholesterol Education Program (NCEP) guidelines:<40 mg/dL: Low HDL-cholesterol (major risk factor for CHD)>= 60 mg/dL: High HDL-cholesterol (negative risk factor for CHD)HDL-cholesterol is affected by a number of factors, e.g. smoking, exercise, hormones, sex and age. Serum or plasma cholesterol measurement (mass/volume)Ordered By: Rey Greenwood on 10-23-2024 Cholesterol [Mass/Vol] 82 mg/dL <201 [facility] Comment on above: Cholesterol level, D esirable <200 mg/dLBorderline high cholesterol 200-239 mg/dLHigh cholesterol >=240 mg/dLRecommendations of the NCEP Adult Treatment Panel for the following risk-cutoff thresholds for the [place] population. Serum or plasma urea nitroge n measurement (mass/volume)Ordered By: Rey Greenwood on 10-23-2024 Urea nitrogen [Mass/Vol] 16 mg/dL 4-19 [facility] Serum or plasma uric acid me asurement (mass/volume)Ordered By: Rey Greenwood on 10-23-2024 Urate [Mass/Vol] 8.2 mg/dL High 3.5-7.2 [facility] Comment on above: The drugs N-Acetylcy steine and Metamizole may falsely depress this assay. Sodium levelOrdered By: Rey Greenwood on 10-23-2024 Sodium [Moles/Vol] 144 mmol/L 133-145 [facility] TSH DL <= 0.005 mIU/L QnOrde red By: Rey Greenwood on 10-23-2024 TSH Qn 0.866 uIU/mL 0.300-4.200 [facility] Thyroid Stim Hormone (TSH)on 10-23-2024 TSH 0.866 uIU/mL Normal 0.300-4.200 [facility] Comment on above: Performed By: #### L 506.1001, L3890.6301, L100.0100, L501.1400, L500.4100, L500.4050, L501.9520 #### [facility] [address] [place], [place], [id number] Total proteinOrdered By: Rey Greenwood on 10-23-2024 Protein [Mass/Vol] 7.0 g/dL 5.9-8.4 [facility] Triglycerides measurementOrd ered By: Rey Greenwood on 10-23-2024 Triglyceride [Mass/Vol] 90 mg/dL <199 [facility] Comment on above: The drugs N-Acetylcy steine and Metamizole may falsely depress this assay. Normal range: <150 mg/dLBorderline High: 150-199 mg/dLHigh: 200-499 mg/dLVery High: >500 mg/dL Uric Acidon 10-23-2024 URIC 8.2 mg/dL High 3.5-7.2 [facility] Comment on above: Result Comment: The drugs N-Acetylcysteine and Metamizole may falsely depress this assay. Performed By: #### L 506.1001, L3890.6301, L100.0100, L501.1400, L500.4100, L500.4050, L501.9520 #### [facility] [address] [place], [place], [id number] Vitamin D,25 Hydroxyon 10-23 Vitamin D 25-OH 31.7 ng/mL Normal 30-100 [facility] Comment on above: Result Comment: Janelle min D Status Deficiency: <20 ng/mL (50nmol/L) Insufficiency: 20-30 ng/mL (50-75 nmol/L) Sufficiency: 30-100 ng/mL (75-250 nmol/L) Toxicity: >100 ng/mL (>250 nmol/L) Performed By: #### L 506.1001, L3890.6301, L100.0100, L501.1400, L500.4100, L500.4050, L501.9520 ####[facility] [address] [place], [address] White blood cell (WBC) count Ordered By: Rey Greenwood on 10-23-2024 WBC (Bld) [#/Vol] 8.4 10*3/uL 4.4-11.0 [facility] Foot min 3 Viewson Foot min 3 Views [facility] [address] [place] [address] Foot min 3 Views MR#: [id number] Acct: [id number] Name: YONI VILLALPANDO Rep #: [id number] : 1945 M 79 From: Josh Chun PCP: Dr. Rey Greenwood MD Status: REG RCR Study: Foot min 3 Views Date of Exam: 10/20/24 Exam# [id number] Ordering Dr: Nathen Gonzalez DPM PROCEDURE: FOOT MIN 3 VIEWS 10/20/2024 REASON FOR EXAM: ULCER LEFT FOOT TECHNIQUE: Procedure Code: RADFO Modality: DX Procedure: FOOT MIN 3 VIEWS Laterality: Left COMPARISON: Left foot study of 10/30/2023. RAD/Foot min 3 Views IMPRESSION: Interval amputation of the 2nd toe of the proximal shaft of the proximal phalanx noted. 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 Flattening of the 2nd metatarsal head noted with partial joint narrowing; differential diagnosis includes osteonecrosis posttraumatic change. Erosive change in the lateral head of the 3rd metatarsal bone noted, with mild degenerative changes seen of the metatarsophalangeal joint Spbn-ce-brasprdl degenerative changes seen of the 1st metatarsal head. Mild degenerative changes are seen throughout the midfoot and the remaining toes. No acute fracture or dislocation is seen. No osseous destructive change is seen to suggest the presence of osteomyelitis. Follow up imaging if and as clinically appropriate. Reading Location: [place] [address] CC: KATHERINE Gonzalez; Dr. 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 Rey Greenwood MD Status:REG RCR Location: History of Present Illness Date of Service: 10/15/24 Chief Complaint: Right foot ulceration History of Wound: Mr. Villalpando is a 77-year-old male with a past medical history of coronary artery disease and clean out to the right lower extremity by an outside provider. Presenting today to the wound care center [facility] with a chief complaint of right plantar foot ulceration. Patient states he had a callus to the area and then noticed drainage to his sock and now has a full-thickness ulceration. He was seen by urgent care and placed on 2 antibiotics based on culture and sensitivity. He is unfamiliar with what antibiotics he is on. He denies trauma. Denies constitutional symptoms. No other pedal complaints at this time. 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 [facility] Medical History HTN (hypertension) Throat cancer COPD (chronic obstructive pulmonary disease) Home Medications ???Medication ???Instructions ???Recorded ???Last Taken ???Type albuterol 90 mcg/actuation aerosol mcg inhalation .2 puffs PRN SOB 01/03/23 Unknown History inhaler amlodipine 5 mg tablet (Norvasc) 5 mg PO DAILY 01/03/23 Unknown His tory aspirin 81 mg tablet,delayed 81 mg PO DAILY 01/03/23 Unknown Hi story release (Adult Low Dose Aspirin) carvedilol 3.125 mg tablet 3.125 mg PO BID 01/03/23 Unknown H istory cholecalciferol (vitamin D3) 1,250 1,250 mcg PO QWEEK 01/03/23 Unkn own History mcg (50,000 unit) capsule dutasteride 0.5 mg capsule 0.5 mg PO DAILY 01/03/23 Unknown H istory (Avodart) fluticasone propionate 115 2 inh inhalation DAILY 01/03/23 Un known History mcg-salmeterol 21 mcg/actuation HFA inhaler (Advair HFA) furosemide 40 mg tablet 40 mg PO QODAY 01/03/23 Unknown Hi story pantoprazole 40 mg tablet,delayed 40 mg PO DAILY 01/03/23 Unknown H istory release potassium chloride 10 mEq 10 meq PO DAILY 01/03/23 Unknown H istory tablet,extended release(part/cryst) (Klor-Con M) ropinirole 2 mg tablet 2 mg PO BID 01/03/23 Unknown Histo ry sour hernandez extract 1,000 mg mg PO gout 01/03/23 Unknown Histor y capsule (Tart Hernandez Extract) spironolactone 25 mg tablet 25 mg PO DAILY 01/03/23 Unknown Hi story (Aldactone) tamsulosin 0.4 mg capsule (Flomax) 0.4 mg PO DAILY 01/03/23 Unknown History tiotropium bromide 18 mcg capsule 1 cap inhalation DAILY 01/03/23 U nknown History with inhalation device (Spiriva with HandiHaler) cephalexin 500 mg capsule 500 mg PO Q6 #40 CAPSULES 10/30/23 Unknown Rx sacubitril 24 mg-valsartan 26 mg 1 tab PO BID 10/15/24 Unknown Hist ory tablet (Entresto) Allergy/AdvReac Type Severity Reaction Status Date / Time No Known Allergies Allergy Verified 10/30/23 12:59 Surgical History (Updated 10/30/23 @ 15:[address] Mario Diaz DO) History of throat surgery Social History Smoking Status: Former smoker Vital Signs Vital Signs Vital Signs: 10/15/24 13:57 Temperature 98.2 F Temperature Source Temporal Pulse Rate 85 Respiratory Rate 18 Blood Pressure 144/74 H Blood Pressure Mean 97 Blood Pressure Source Monitor Weight Weight: 95.254 kg Body Mass Index (BMI) 30.1 Physical Exam Narrative Vascular: DP and PT pulses palpable. CFT brisk. No erythema or proximal streaking. Skin temperature is warm to warm with no focal increase. Neurologic: Light touch is intact. Protective sensation is absent. 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 Full-thickness wound to the plantar aspect left hallux measuring 0.8 x 0.8 x 0.2 cm. Wound base is granular with no signs of infection. Excisional debridement down to including subcutaneous tissue with number 3 mm dermal curette to the full-thickness wound to plantar aspect of left hallux done without incident. Predebridement measurement was 0.5 x 0.5 x 0.1 cm. Postdebridement measurement is 0.8 x 0.8 x 0.2 cm. Musculoskeletal: Decreased range of motion to the first metatarsal phalangeal joint to the left foot. No pain on palpation to the full-thickness wound to plantar aspect of the left great toe. No pain with calf pressure. Debridement Note Debridement Note Debridement Free Text: Excisional debridement down to including subcutaneous tissue with number 3 mm dermal (more content not included)... Normal [facility] ECG 12 lead (Midmark)on Sinus Bradycardia -Left axis -anterior fascicular block. 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 ABNORMAL [facility] ECG 12-LEAD (MIDMARK)on ECG 12-LEAD (MIDMARK) Sinus Bradycardia -Left axis -anterior fascicular block. 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 ABNORMAL Normal [facility] Bacteria identified Cx Nom ( Tiss)Ordered By: Josh Whatley on 11-13-2023 Interpretation and review of laboratory results Abnormal [facility] Microscopic observation Gram stain Nom (Unsp spec) Rare Polymorphonuclear leukocytes [facility] Comment on above: This is an appended report. These results have been appended to a previously preliminary verified report. Microscopic observation Gram stain Nom (Unsp spec) No Epithelial cells [facility] Comment on above: This is an appended report. These results have been appended to a previously preliminary verified report. Microscopic observation Gram stain Nom (Unsp spec) No organisms seen [facility] Comment on above: This is an appended report. These results have been appended to a previously preliminary verified report. [facility] Basic metabolic 2000 panelon 11-13-2023 Anion gap [Moles/Vol] 7 mmol/L 6 - 18 [facility] [employer] Calcium [Mass/Vol] 8.5 mg/dL Low 8.9 - 10. 3 mg/dL [facility] Chloride [Moles/Vol] 107 mmol/L 98 - 10 7 mmol/L [facility] CO2 [Moles/Vol] 24 mmol/L 22 - 32 mmol/L [facility] Creatinine [Mass/Vol] 1.11 mg/dL 0.60 - 1.30 mg/dL [facility] GFR/1.73 sq M.predicted among non-blacks MDRD (S/P/Bld) [Vol rate/Area] 69 mL/min/{1.73_m2} - PINF [facility] Comment on above: Calculation based on the Chronic Kidney Disease Epidemiology Collaboration (CKD-EPI) equation refit without adjustment for race. Glucose [Mass/Vol] 161 mg/dL High 70 - 99 mg/dL [facility] Interpretation and review of laboratory results Abnormal [facility] Potassium [Moles/Vol] 4.3 mmol/L 3.6 - 5.1 mmol/L [facility] Sodium [Moles/Vol] 138 mmol/L 136 - 145 mmol/L [facility] Urea nitrogen [Mass/Vol] 25 mg/dL High 8 - 20 mg/dL [facility] Urea nitrogen/Creatinine [Mass ratio] 22.5 mg/mg High 12.0 - 20.0 [facility] Anion gap [Moles/Vol] 7 mmol/L Normal 6-18 [facility] Comment on above: Performed By: #### 2 4321-2 #### [facility] [address] [place] [address] Calcium [Mass/Vol] 8.5 mg/dL Low 8.9-10.3 [facility] Comment on above: Performed By: #### 2 4321-2 #### [facility] [address] [place] [address] Chloride [Moles/Vol] 107 mmol/L Normal 98-107 [facility] Comment on above: Performed By: #### 2 4321-2 #### [facility] [address] [place] [address] CO2 [Moles/Vol] 24 mmol/L Normal 22-32 [facility] Comment on above: Performed By: #### 2 4321-2 #### [facility] [place] [address] Creatinine [Mass/Vol] 1.11 mg/dL Normal 0.60-1.30 [facility] Comment on above: Performed By: #### 2 4321-2 #### [facility] [place] [address] GFR/1.73 sq M.predicted among non-blacks MDRD (S/P/Bld) [Vol rate/Area] 69 mL/min/{1.73_m2} Normal >=60 [facility] Comment on above: Result Comment: Calc ulation based on the?Chronic Kidney Disease Epidemiology Collaboration (CKD-EPI) equation refit?without adjustment for race. Performed By: #### 2 4321-2 #### [facility] [address] [place] [address] [place] [address] Glucose [Mass/Vol] 161 mg/dL High 70-99 [facility] Comment on above: Performed By: #### 2 4321-2 #### [facility] [address] [place] [address] [place] [address] Potassium [Moles/Vol] 4.3 mmol/L Normal 3.6-5.1 [facility] Comment on above: Performed By: #### 2 4321-2 #### [facility] [address] [place] [address] [place] [address] Sodium [Moles/Vol] 138 mmol/L Normal 136-145 [facility] Comment on above: Performed By: #### 2 4321-2 #### [facility] [address] [place], [place] [address] [address] Urea nitrogen [Mass/Vol] 25 mg/dL High 8-20 [facility] Comment on above: Performed By: #### 2 4321-2 #### [facility] [address] [place] [address] Urea nitrogen/Creatinine [Mass ratio] 22.5 mg/mg High 12.0-20.0 [facility] Comment on above: Performed By: #### 2 4321-2 #### [facility] [address] [place] [address] Culture tissue with gram sta inOrdered By: Josh Whatley on 11-13-2023 Bacteria identified Cx Nom (Tiss) Rare Corynebacterium species Abnormal [facility] Comment on above: The organism value for this result has been updated. These results have been appended to the previously preliminary verified report. Bacteria identified Cx Nom (Tiss) Rare Enterococcus faecalis Abnormal [facility] Comment on above: Performed on MCCLB-V [id number]-1 See previous culture for susceptibilities. The organism value for this result has been updated. These results have been appended to the previously preliminary verified report. Result component has been updated to reportable to [facility]. Hemogram and platelets WO di fferential panel (Bld)on 11-13-2023 Erythrocyte distribution width (RBC) [Ratio] 13.9 % 11.0 - 14.8 % [facility] [employer] Hematocrit (Bld) [Volume fraction] 43.6 % 39.0 - 49.0 % [facility] Hemoglobin (Bld) [Mass/Vol] 14.1 g/dL 13.5 - 17.5 g/dL [facility] Interpretation and review of laboratory results Abnormal [facility] MCH (RBC) [Entitic mass] 30.0 pg [facility] [employer] MCHC (RBC) [Mass/Vol] 32.3 g/dL 30.8 - 35.3 g/dL [facility] MCV (RBC) [Entitic vol] 92.8 fL [facility] [employer] Platelet mean volume (Bld) [Entitic vol] 11.3 fL [facility] [employer] Platelets (Bld) [#/Vol] 143 10*3/uL [facility] RBC (Bld) [#/Vol] 4.70 10*6/uL [facility] WBC (Bld) [#/Vol] 4.3 10*3/uL [facility] Erythrocyte distribution width (RBC) [Ratio] 13.9 % Normal 11.0-14.8 [facility] Comment on above: Performed By: #### 6 36-1 #### [facility] [address] [place] [address] [facility] [address] [place] [address] [place] [address] Hematocrit (Bld) [Volume fraction] 43.6 % Normal 39.0-49.0 [facility] Comment on above: Performed By: #### 6 36-1 #### [facility] [address] [place] [address] [facility] [address] [place] [address] Hemoglobin (Bld) [Mass/Vol] 14.1 g/dL Normal 13.5-17.5 [facility] Comment on above: Performed By: #### 6 36-1 #### [facility] [address] [place] [address] [facility] [address] [place] [address] MCH 30.0 pcg Normal 27.0-34.0 [facility] Comment on above: Performed By: #### 6 36-1 #### [facility] [address] [place] [address] [facility] [address] [place] [address] [place] [address] MCHC (RBC) [Mass/Vol] 32.3 g/dL Normal 30.8-35.3 [facility] Comment on above: Performed By: #### 6 36-1 #### [facility] [address] [place] [address] [facility] [address] [place] [address] MCV (RBC) [Entitic vol] 92.8 fL Normal 80.0-97.0 [facility] Comment on above: Performed By: #### 6 36-1 #### [facility] [address] [place] [address] [facility] [place] [address] Platelet mean volume (Bld) [Entitic vol] 11.3 fL Normal 6.2-12.1 [facility] Comment on above: Performed By: #### 6 36-1 #### [facility] [address] [place] [address] [facility] [place] [address] Platelets (Bld) [#/Vol] 143 10*3/uL Normal 142-424 [facility] Comment on above: Performed By: #### 6 36-1 #### [facility] [address] [place] [address] [facility] [place] [address] RBC (Bld) [#/Vol] 4.70 10*6/uL Normal 4.30-5.70 [facility] Comment on above: Performed By: #### 6 36-1 #### [facility] [address] [place] [address] [facility] [place] [address] WBC (Bld) [#/Vol] 4.3 10*3/uL Low 4.6-10.2 [facility] Comment on above: Performed By: #### 6 36-1 #### [facility] [address] [place] [address] [facility] [place] [address] Basic metabolic 2000 panelon 11-12-2023 Anion gap [Moles/Vol] 9 mmol/L 6 - 18 [facility] Calcium [Mass/Vol] 8.1 mg/dL Low 8.9 - 10. 3 mg/dL [facility] Chloride [Moles/Vol] 103 mmol/L 98 - 10 7 mmol/L [facility] [employer] CO2 [Moles/Vol] 23 mmol/L 22 - 32 mmol/L [facility] [employer] Creatinine [Mass/Vol] 1.21 mg/dL 0.60 - 1.30 mg/dL [facility] [employer] GFR/1.73 sq M.predicted among non-blacks MDRD (S/P/Bld) [Vol rate/Area] 62 mL/min/{1.73_m2} - PINF [facility] Comment on above: Calculation based on the Chronic Kidney Disease Epidemiology Collaboration (CKD-EPI) equation refit without adjustment for race. Glucose [Mass/Vol] 85 mg/dL 70 - 99 mg/dL [facility] Interpretation and review of laboratory results Abnormal [facility] [employer] Potassium [Moles/Vol] 4.3 mmol/L 3.6 - 5.1 mmol/L [facility] [employer] Sodium [Moles/Vol] 135 mmol/L Low 136 - 145 mmol/L [facility] [employer] Urea nitrogen [Mass/Vol] 23 mg/dL High 8 - 20 mg/dL [facility] [employer] Urea nitrogen/Creatinine [Mass ratio] 19.0 mg/mg 12.0 - 20.0 [facility] Procalcitonin 0.11 ng/mL Normal <0.50 [facility] Comment on above: Order Comment: <0.5 Low risk of severe sepsis and/or septic shock.>2.0 High risk of severe sepsis and/or septic shock.Concentrations under 0.5 ng/mL do not exclude local infections or systemic infections in their initial stages (e.g. under six hours from onset of illness.) PCT concentrations between 0.5 and 2.0 ng/mL should be interpreted with consideration of the patient's history. In this range, it is recommended to retest PCT within 6 to 24 hours. Performed By: #### 2 4321-2 ####[facility] [id number] [place] [address] Hemogram and platelets WO di fferential panel (Bld)Ordered By: Essence Black on 11-12-2023 Erythrocyte distribution width (RBC) [Ratio] 14.1 % 11.0 - 14.8 % [facility] Hematocrit (Bld) [Volume fraction] 41.7 % 39.0 - 49.0 % [facility] Hemoglobin (Bld) [Mass/Vol] 13.4 g/dL Low 13.5 - 17.5 g/dL [facility] Interpretation and review of laboratory results Abnormal [facility] MCH (RBC) [Entitic mass] 30.2 pg [facility] MCHC (RBC) [Mass/Vol] 32.1 g/dL 30.8 - 35.3 g/dL [facility] MCV (RBC) [Entitic vol] 93.9 fL [facility] Platelet mean volume (Bld) [Entitic vol] 12.1 fL [facility] Platelets (Bld) [#/Vol] 147 10*3/uL [facility] RBC (Bld) [#/Vol] 4.44 10*6/uL [facility] WBC (Bld) [#/Vol] 7.6 10*3/uL [facility] Hemogram and platelets WO di fferential panel (Bld)on 11-12-2023 Erythrocyte distribution width (RBC) [Ratio] 14.1 % Normal 11.0-14.8 [facility] Comment on above: Performed By: #### 2 4317-0 ####[address] [address] Hematocrit (Bld) [Volume fraction] 41.7 % Normal 39.0-49.0 [facility] Comment on above: Performed By: #### 2 4317-0 ####[address] [address] Hemoglobin (Bld) [Mass/Vol] 13.4 g/dL Low 13.5-17.5 [facility] Comment on above: Performed By: #### 2 4317-0 ####[address] [address] MCH 30.2 pcg Normal 27.0-34.0 [facility] Comment on above: Performed By: #### 2 4317-0 ####[facility] [id number] [place] [address] [place] [address] MCHC (RBC) [Mass/Vol] 32.1 g/dL Normal 30.8-35.3 [facility] Comment on above: Performed By: #### 2 4317-0 ####[facility] [id number] [place] [address] MCV (RBC) [Entitic vol] 93.9 fL Normal 80.0-97.0 [facility] Comment on above: Performed By: #### 2 4317-0 ####[facility] [id number] [place] [address] Platelet mean volume (Bld) [Entitic vol] 12.1 fL Normal 6.2-12.1 [facility] Comment on above: Performed By: #### 2 4317-0 ####[facility] [id number] [place] [address] Platelets (Bld) [#/Vol] 147 10*3/uL Normal 142-424 [facility] Comment on above: Performed By: #### 2 4317-0 ####[facility] [id number] [place] [address] RBC (Bld) [#/Vol] 4.44 10*6/uL Normal 4.30-5.70 [facility] Comment on above: Performed By: #### 2 4317-0 ####[facility] [id number] [place] [address] WBC (Bld) [#/Vol] 7.6 10*3/uL Normal 4.6-10.2 [facility] Comment on above: Performed By: #### 2 4317-0 ####[facility] [id number] [place] [address] Procalcitoninon 11-12-2023 Procalcitonin [Mass/Vol] 0.11 ng/mL [facility] - 0.50 ng/mL [facility] Procalcitonin [Mass/Vol]on 0 11-12-2023 Interpretation and review of laboratory results Normal [facility] <0.5 Low risk of severe sepsis and/or septic shock. >2.0 High risk of severe sepsis and/or septic shock. Concentrations under 0.5 ng/mL do not exclude local infections or systemic infections in their initial stages (e.g. under six hours from onset of illness.) PCT concentrations between 0.5 and 2.0 ng/mL should be interpreted with consideration of the patient's history. In this range, it is recommended to retest PCT within 6 to 24 hours. [employer] Tropinin I.cardiac panel Hig h sensitivity methodon 11-12-2023 Interpretation and review of laboratory results Abnormal [facility] Troponin I.cardiac High sensitivity method [Mass/Vol] 120 ng/L Critically high NINF - 20 ng[facility]L [facility] [employer] High Sensitivity Troponin I 117 ng/L Critically high <20 [facility] Comment on above: Performed By: #### 6 00-7 #### [facility] [address] [place] [id number] Tropinin I.cardiac panel Hig h sensitivity methodOrdered By: Rosie Page on 11-12-2023 Interpretation and review of laboratory results Abnormal [facility] Troponin I.cardiac High sensitivity method [Mass/Vol] 117 ng/L Critically high NINF - 20 ng/L [facility] XR CHEST 1 VIEWon 11-12-2023 XR CHEST 1 VIEW EXAMINATION TYPE: XR CHEST 1 VIEW DATE OF EXAM : 11/12/2023 10:38 AM HISTORY: pneumonia COMPARISON: 11/08/2023 FINDINGS: Loop recorder device. Stable cardiomediastinal silhouette. Low lung volumes. There are grossly stable mild bibasilar opacities of uncertain chronicity. There is no large pleural effusion. No pneumothorax. IMPRESSION: No significant interval change. -------- FINAL REPORT -------- Dictated By: Kuldeep Angulo Dictated Date: 11/12/2023 11:13 Assigned Physician: Kuldeep Angulo Reviewed and Electronically Signed By: Kuldeep Angulo Signed Date: 11/12/2023 11:14 Workstation ID: [id number] Transcribed By: Self Edit Transcribed Date: 11/12/2023 11:13 Normal [facility] XR Chest Single viewon 11-11 No significant interval change. -------- FINAL REPORT -------- Dictated By: Kuldeep Angulo Dictated Date: 11/12/2023 11:13 Assigned Physician: Kuldeep Angulo Reviewed and Electronically Signed By: Kuldeep Angulo Signed Date: 11/12/2023 11:14 Workstation ID: [id number] Transcribed By: Self Edit Transcribed Date: 11/12/2023 11:13 POWERSCRIBE EXAMINATION TYPE: XR CHEST 1 VIEW DATE OF EXAM : 11/12/2023 10:38 AM HISTORY: pneumonia COMPARISON: 11/08/2023 FINDINGS: Loop recorder device. Stable cardiomediastinal silhouette. Low lung volumes. There are grossly stable mild bibasilar opacities of uncertain chronicity. There is no large pleural effusion. No pneumothorax. POWERSCRIBE Kuldeep Angulo MD - 11/12/2023 EXAMINATION TYPE: XR CHEST 1 VIEW DATE OF EXAM : 11/12/2023 10:38 AM HISTORY: pneumonia COMPARISON: 11/08/2023 FINDINGS: Loop recorder device. Stable cardiomediastinal silhouette. Low lung volumes. There are grossly stable mild bibasilar opacities of uncertain chronicity. There is no large pleural effusion. No pneumothorax. IMPRESSION: No significant interval change. -------- FINAL REPORT -------- Dictated By: Kuldeep Angulo Dictated Date: 11/12/2023 11:13 Assigned Physician: Kuldeep Angulo Reviewed and Electronically Signed By: Kuldeep Angulo Signed Date: 11/12/2023 11:14 Workstation ID: [id number] Transcribed By: Self Edit Transcribed Date: 11/12/2023 11:13 [facility] Radiology Study observation (narrative) [facility] XR Chest Single viewOrdered By: Kuldeep Angulo on 11-12-2023 [facility] Work Phone: Cobalamin (Vitamin B12) [Mas s/Vol]on 11-11-2023 Interpretation and review of laboratory results Normal [facility] [employer] Ferritinon 11-11-2023 Ferritin [Mass/Vol] 242 ng/mL 11 - 336 ng/mL [facility] [employer] Ferritin [Mass/Vol]on 2023 Interpretation and review of laboratory results Normal [facility] [employer] HbA1c (Bld) [Mass fraction]o n 11-11-2023 Glucose [Mass/Vol] 123 mg/dL [facility] Interpretation and review of laboratory results Abnormal [facility] [employer] HbA1c values of 5.7-6.4 percent indicate an increased risk for developing diabetes mellitus. HbA1c values greater than or equal to 6.5 percent are diagnostic of diabetes mellitus. For diagnosis of diabetes in individuals without unequivocal hyperglycemia, results should be confirmed by repeat testing. [facility] [employer] Mean Bld Glu Estim. 123 mg/dL Normal [facility] Comment on above: Order Comment: HbA1c values of 5.7-6.4 percent indicate an increased risk for developing diabetes mellitus.HbA1c values greater than or equal to 6.5 percent are diagnostic of diabetes mellitus.For diagnosis of diabetes in individuals without unequivocal hyperglycemia, results should be confirmed by repeat testing. Performed By: #### 4 548-4 ####[facility] ([facility]) [id number] [place] [address] HbA1c MFr Bldon 11-11-2023 HbA1c (Bld) [Mass fraction] 5.9 % High <=5.6 [facility] Comment on above: Order Comment: HbA1c values of 5.7-6.4 percent indicate an increased risk for developing diabetes mellitus.HbA1c values greater than or equal to 6.5 percent are diagnostic of diabetes mellitus.For diagnosis of diabetes in individuals without unequivocal hyperglycemia, results should be confirmed by repeat testing. Performed By: #### 4 548-4 ####[facility] ([facility]) [id number] [place] [address] Hemoglobin A1con 11-11-2023 HbA1c (Bld) [Mass fraction] 5.9 % High NINF - 5.6 % [facility] [employer] Hemogram and platelets WO di fferential panel (Bld)on 11-11-2023 Erythrocyte distribution width (RBC) [Ratio] 13.8 % 11.0 - 14.8 % [facility] Hematocrit (Bld) [Volume fraction] 36.0 % Low 39.0 - 49.0 % [facility] Hemoglobin (Bld) [Mass/Vol] 11.4 g/dL Low 13.5 - 17.5 g/dL [facility] Immature Platelet Fraction 5.8 % 1.4 - 10.8 % [facility] Interpretation and review of laboratory results Abnormal [facility] MCH (RBC) [Entitic mass] 29.5 pg [facility] MCHC (RBC) [Mass/Vol] 31.7 g/dL 30.8 - 35.3 g/dL [facility] MCV (RBC) [Entitic vol] 93.3 fL [facility] Platelet mean volume (Bld) [Entitic vol] 11.4 fL [facility] Platelets (Bld) [#/Vol] 126 10*3/uL Low [facility] RBC (Bld) [#/Vol] 3.86 10*6/uL Low [facility] WBC (Bld) [#/Vol] 6.7 10*3/uL [facility] Erythrocyte distribution width (RBC) [Ratio] 13.8 % Normal 11.0-14.8 [facility] Comment on above: Performed By: #### 6 00-7 #### [facility] ([facility]) LAB [address] [place] [address] Hematocrit (Bld) [Volume fraction] 36.0 % Low 39.0-49.0 [facility] Comment on above: Performed By: #### 6 00-7 #### [facility] [address] [place] [address] Hemoglobin (Bld) [Mass/Vol] 11.4 g/dL Low 13.5-17.5 [facility] Comment on above: Performed By: #### 6 00-7 #### [facility] [address] [place] [address]759 Immature Platelet Fraction 5.8 % Normal 1.4-10.8 [facility] Comment on above: Performed By: #### 6 00-7 #### [facility] ([facility] LAB [address] [place] [address] 35792 MCH 29.5 pcg Normal 27.0-34.0 [facility] Comment on above: Performed By: #### 6 -7 #### [facility] [place] [facility] [address] [place] [address] 34570 MCHC (RBC) [Mass/Vol] 31.7 g/dL Normal 30.8-35.3 [facility] Comment on above: Performed By: #### 6 -7 #### [facility] [place] [facility] [address] [place] [address]4724 MCV (RBC) [Entitic vol] 93.3 fL Normal 80.0-97.0 [facility] Comment on above: Performed By: #### 6 -7 #### [facility] [place] [address] [place] [address] 58978 Platelet mean volume (Bld) [Entitic vol] 11.4 fL Normal 6.2-12.1 [facility] Comment on above: Performed By: #### 6 -7 #### [facility] [place] [address] [place] [address] 28644 Platelets (Bld) [#/Vol] 126 10*3/uL Low 142-424 [facility] Comment on above: Performed By: #### 6 -7 #### [facility] [place] [address] [place] [address] 11073 RBC (Bld) [#/Vol] 3.86 10*6/uL Low 4.30-5.70 [facility] Comment on above: Performed By: #### 6 -7 #### [facility] [place] [address] [place] [address] 23138 WBC (Bld) [#/Vol] 6.7 10*3/uL Normal 4.6-10.2 [facility] Comment on above: Performed By: #### 6 -7 #### [facility] [place] [address] [place] [address] 61927 Iron and Iron binding capaci ty panelon 11-11-2023 Interpretation and review of laboratory results Abnormal [facility] Iron [Mass/Vol] 37 ug/dL Low [facility] Iron binding capacity [Mass/Vol] 221 Low [facility] Iron saturation [Mass fraction] 17 % Low 20 - 55 % [facility] Vitamin B-12 209 pcg/mL Normal 180-914 [facility] Comment on above: Performed By: #### 5 0190-8 ####[facility] [id number] [place] [address] 7[address] Tropinin I.cardiac panel Hig h sensitivity methodon 11-11-2023 Interpretation and review of laboratory results Abnormal [facility] Troponin I.cardiac High sensitivity method [Mass/Vol] 49 ng/L High NINF - 20 ng/L [facility] High Sensitivity Troponin I 49 ng/L High <20 [facility] Comment on above: Performed By: #### 8 9577-1 ####[facility] [id number] [place] [address] Interpretation and review of laboratory results Abnormal [facility] Troponin I.cardiac High sensitivity method [Mass/Vol] 36 ng/L High NINF - 20 ng/L [facility] Interpretation and review of laboratory results Abnormal [facility] Troponin I.cardiac High sensitivity method [Mass/Vol] 32 ng/L High NINF - 20 ng/L [facility] High Sensitivity Troponin I 32 ng/L High <20 [facility] Comment on above: Performed By: #### 8 9577-1 ####[facility] [id number] [place] [address] 10638 Vitamin B12on 11-11-2023 Cobalamin (Vitamin B12) [Mass/Vol] 209 pg/mL [facility] Bacteria Tiss Culton 024 Bacteria identified Cx Nom (Tiss) 1 ORGANISM 432 Abnormal Rare Corynebacterium species The organism value for this result has been updated. These results have been appended to the previously preliminary verified report. 2 ORGANISM 189 Abnormal Rare Enterococcus faecalis Performed on [id number] See previous culture for susceptibilities. The organism value for this result has been updated. These results have been appended to the previously preliminary verified report. Result component has been updated to reportable to [facility]. Gram Stain Result Status = F Rare Polymorphonuclear leukocytes This is an appended report. These results have been appended to a previously preliminary verified report. No Epithelial cells This is an appended report. These results have been appended to a previously preliminary verified report. No organisms seen This is an appended report. These results have been appended to a previously preliminary verified report. Invalid Interpretation Code [facility] Comment on above: Performed By: #### 4 3408-4 ####[facility] ([facility]) [id number] [place] [address] Bacteria identified Cx Nom (Tiss) 1 ORGANISM 432 Abnormal Rare Corynebacterium species The organism value for this result has been updated. These results have been appended to the previously preliminary verified report. 2 ORGANISM 189 Abnormal Rare Enterococcus faecalis Performed on [id number] The organism value for this result has been updated. These results have been appended to the previously preliminary verified report. Result component has been updated to reportable to [facility]. Gram Stain Result Status = F No Polymorphonuclear leukocytes This is an appended report. These results have been appended to a previously preliminary verified report. No Epithelial cells This is an appended report. These results have been appended to a previously preliminary verified report. No organisms seen This is an appended report. These results have been appended to a previously preliminary verified report. ------ 2 ORGANISM Antibiotic Result Intrp Ampicillin Susc Islt <=2 ug/ml Susceptible Gentamicin Synergy Susc Islt Susceptible Vancomycin Susc Islt 1 ug/ml Susceptible Invalid Interpretation Code [facility] Comment on above: Performed By: #### 4 3408-4 ####[facility] ([facility]) [id number] [place] [address] Basic metabolic 2000 panelon 11-10-2023 Anion gap [Moles/Vol] 7 mmol/L 6 - 18 [facility] Calcium [Mass/Vol] 8.2 mg/dL Low 8.9 - 10. 3 mg/dL [facility] Chloride [Moles/Vol] 108 mmol/L High 98 - 10 7 mmol/L [facility] CO2 [Moles/Vol] 25 mmol/L 22 - 32 mmol/L [facility] Creatinine [Mass/Vol] 0.96 mg/dL 0.60 - 1.30 mg/dL [facility] GFR/1.73 sq M.predicted among non-blacks MDRD (S/P/Bld) [Vol rate/Area] 82 mL/min/{1.73_m2} - PINF [facility] Comment on above: Calculation based on the Chronic Kidney Disease Epidemiology Collaboration (CKD-EPI) equation refit without adjustment for race. Glucose [Mass/Vol] 106 mg/dL High 70 - 99 mg/dL [facility] [employer] Interpretation and review of laboratory results Abnormal [facility] Potassium [Moles/Vol] 3.8 mmol/L 3.6 - 5.1 mmol/L [facility] Sodium [Moles/Vol] 140 mmol/L 136 - 145 mmol/L [facility] Urea nitrogen [Mass/Vol] 21 mg/dL High 8 - 20 mg/dL [facility] Urea nitrogen/Creatinine [Mass ratio] 21.9 mg/mg High 12.0 - 20.0 [employer] ECG 12 leadOrdered By: Darrius Gonzales on 11-10-2023 P Wave [place] 71 degrees [employer] Phone: P-R Interval 156 ms [employer] Phone: Pathologist interpretation (Bld) [Interp] Sinus rhythm with occasional Premature ventricular complexes and Premature atrial complexes Left axis deviation Minimal voltage criteria for LVH, may be normal variant ( [employer] product ) Inferior infarction , age undetermined Anterolateral infarct , age undetermined QTcB >= 480 msec Abnormal ECG Confirmed by Darrius Gonzales ([id number]), online content editor Yen Jeffery ([id number]) on 11/10/2023 6:27:35 AM [employer] Phone: Q-T Interval 426 ms [employer] Phone: QRS Duration 114 ms [employer] Phone: QTc 497 ms [employer] Phone: [phone] R [place] -56 degrees [employer] Work Phone: [phone] Troponin T.cardiac [Mass/Vol] 23 ug/L degrees [facility] Work Phone: [phone] [facility] Work Phone: [phone] Hemogram and platelets WO di fferential panel (Bld)on 11-10-2023 Erythrocyte distribution width (RBC) [Ratio] 13.7 % 11.0 - 14.8 % [facility] [employer] Hematocrit (Bld) [Volume fraction] 36.6 % Low 39.0 - 49.0 % [facility] [employer] Hemoglobin (Bld) [Mass/Vol] 11.9 g/dL Low 13.5 - 17.5 g/dL [facility] [employer] Immature Platelet Fraction 5.4 % 1.4 - 10.8 % [facility] [employer] Interpretation and review of laboratory results Abnormal [facility] [employer] MCH (RBC) [Entitic mass] 29.9 pg [facility] [employer] MCHC (RBC) [Mass/Vol] 32.5 g/dL 30.8 - 35.3 g/dL [facility] [employer] MCV (RBC) [Entitic vol] 92.0 fL [facility] [employer] Platelet mean volume (Bld) [Entitic vol] 11.0 fL [facility] [employer] Platelets (Bld) [#/Vol] 131 10*3/uL Low [facility] RBC (Bld) [#/Vol] 3.98 10*6/uL Low [facility] WBC (Bld) [#/Vol] 5.0 10*3/uL [facility] Erythrocyte distribution width (RBC) [Ratio] 13.7 % Normal 11.0-14.8 [facility] Comment on above: Performed By: #### 2 4317-0 ####[facility] [id number] [place] [address] Hematocrit (Bld) [Volume fraction] 36.6 % Low 39.0-49.0 [facility] Comment on above: Performed By: #### 2 4317-0 ####[facility] [id number] [place] [address] Hemoglobin (Bld) [Mass/Vol] 11.9 g/dL Low 13.5-17.5 [facility] Comment on above: Performed By: #### 2 4317-0 ####[address] [address] Immature Platelet Fraction 5.4 % Normal 1.4-10.8 [facility] Comment on above: Performed By: #### 2 4317-0 ####[address] [address] MCH 29.9 pcg Normal 27.0-34.0 [facility] Comment on above: Performed By: #### 2 4317-0 ####[address] [address] MCHC (RBC) [Mass/Vol] 32.5 g/dL Normal 30.8-35.3 [facility] Comment on above: Performed By: #### 2 4317-0 ####[address] [address] MCV (RBC) [Entitic vol] 92.0 fL Normal 80.0-97.0 [facility] Comment on above: Performed By: #### 2 4317-0 ####[address] [address] Platelet mean volume (Bld) [Entitic vol] 11.0 fL Normal 6.2-12.1 [facility] Comment on above: Performed By: #### 2 4317-0 ####[address] [address] Platelets (Bld) [#/Vol] 131 10*3/uL Low 142-424 [facility] Comment on above: Performed By: #### 2 4317-0 ####[address] [place] [address] RBC (Bld) [#/Vol] 3.98 10*6/uL Low 4.30-5.70 [facility] Comment on above: Performed By: #### 2 4317-0 ####[facility] [id number] [place] [address] WBC (Bld) [#/Vol] 5.0 10*3/uL Normal 4.6-10.2 [facility] Comment on above: Performed By: #### 2 4317-0 ####[facility] [id number] [place] [address] Laboratory - CoagulationOrde red By: Darrius Gonzales on 11-10-2023 ACT Coag (Bld) 82 s BPM [facility] [employer] Work Phone: Lactate (Bld) [Mass/Vol]on 0 11-10-2023 Interpretation and review of laboratory results Normal [facility] [employer] Lactate [Moles/Vol] 1.3 mmol/L 0.5 - 2. 0 mmol/L [facility] Lactate [Moles/Vol] 1.3 mmol/L Normal 0.5-2.0 [facility] Comment on above: Performed By: #### 6 00-7 #### [facility] [address] [place] [address] PST green LI heparin tubeon 11-10-2023 Specimen source Nom (Unsp spec) Hold for add-ons. [facility] Comment on above: Auto resulted. [facility] Tropinin I.cardiac panel Hig h sensitivity methodon 11-10-2023 Interpretation and review of laboratory results Abnormal [facility] [employer] Troponin I.cardiac High sensitivity method [Mass/Vol] 36 ng/L High NINF - 20 ng/L [facility] [employer] [facility] [employer] Interpretation and review of laboratory results Abnormal [facility] [employer] Troponin I.cardiac High sensitivity method [Mass/Vol] 36 ng/L High NINF - 20 ng/L [facility] High Sensitivity Troponin I 36 ng/L High <20 [facility] Comment on above: Performed By: #### 6 36-1 #### [facility] LAB [address] [place] [address] [facility] [address] [place] [address] Performed By: #### 6 00-7 #### [facility] LAB [address] [place] [address] Interpretation and review of laboratory results Abnormal [facility] Troponin I.cardiac High sensitivity method [Mass/Vol] 39 ng/L High NINF - 20 ng/L [facility] Anion gap [Moles/Vol] 7 mmol/L Normal 6-18 [facility] Comment on above: Performed By: #### 6 36-1 #### [facility] LAB [address] [place] [address] [facility] [address] [place] [address] Calcium [Mass/Vol] 8.2 mg/dL Low 8.9-10.3 [facility] Comment on above: Performed By: #### 6 36-1 #### [facility] ([facility]) LAB [address] [place] [address] [facility] [address] [place] [place] [address] Chloride [Moles/Vol] 108 mmol/L High 98-107 [facility] Comment on above: Performed By: #### 6 36-1 #### [facility] [address] [place] [address] [facility] [address] [place] [place] [address] CO2 [Moles/Vol] 25 mmol/L Normal 22-32 [facility] Comment on above: Performed By: #### 6 36-1 #### [facility] [address] [place] [address] [facility] [address] [place] [address] Creatinine [Mass/Vol] 0.96 mg/dL Normal 0.60-1.30 [facility] Comment on above: Performed By: #### 6 36-1 #### [facility] ([facility]) LAB [address] [place] [address] [facility] [address] [place] [address] GFR/1.73 sq M.predicted among non-blacks MDRD (S/P/Bld) [Vol rate/Area] 82 mL/min/{1.73_m2} Normal >=60 [facility] Comment on above: Result Comment: Calc ulation based on the?Chronic Kidney Disease Epidemiology Collaboration (CKD-EPI) equation refit?without adjustment for race. Performed By: #### 6 36-1 #### [facility] ([facility]) LAB [address] [place] [address] [facility] [place] [address] Glucose [Mass/Vol] 106 mg/dL High 70-99 [facility] Comment on above: Performed By: #### 6 36-1 #### [facility] ([facility]) LAB [address] [place] [address] [facility] LAB [address] [place] [address] Potassium [Moles/Vol] 3.8 mmol/L Normal 3.6-5.1 [facility] Comment on above: Performed By: #### 6 36-1 #### [facility] ([facility]) LAB [address] [place] [address] [facility] [address] [place] [address] Sodium [Moles/Vol] 140 mmol/L Normal 136-145 [facility] Comment on above: Performed By: #### 6 36-1 #### [facility]) LAB [address] [place] [address] [facility] LAB [address] [place] [address] Urea nitrogen [Mass/Vol] 21 mg/dL High 8-20 [facility] Comment on above: Performed By: #### 6 36-1 #### [facility] [address] [place] [address] [facility] [address] [place] [address] Urea nitrogen/Creatinine [Mass ratio] 21.9 mg/mg High 12.0-20.0 [facility] Comment on above: Performed By: #### 6 36-1 #### [facility] [address] [place] [address] [facility] [address] [place] [address] [facility] TransthoracicOrdere d By: Bob Marte on 11-10-2023 Ao VTI 32.2 cm [employer] Phone: [phone] Aortic Root 3.1 cm [employer] Phone: Aortic Root Index 1.43 cm/m2 [employer] Phone: Ascending Aorta 3.2 cm [employer] Phone: Ascending Aorta Index 1.47 cm/m2 [employer] Phone: [phone] AV Area Continuity Equation 1.8 cm2 [employer] Phone: [phone] AV Area Peak Velocity 1.7 cm2 [employer] Phone: AV Mean Gradient 7 mmHg [employer] [employer] Phone: AV Peak Gradient 14 mmHg [employer] Phone: [phone] AV Peak Carlito 1.9 m/s [employer] Phone: [phone] AV Velocity Ratio 0.53 [employer] Phone: [phone] YASSINE Index (Pk Carlito) 0.78 cm2/m2 [employer] Phone: [phone] YASSINE Index (VTI) 0.83 cm2/m2 [facility] [employer] Phone: Body surface area Derived from formula 2.22 m2 [facility] [employer] Phone: E Wave Deceleration Time 214 ms 119 - 242 ms [facility] [employer] Phone: E/E' Ratio Averaged 16 [facility]vette [facility] [employer] Work Phone: E/E' Ratio Lateral 10 Trin y [employer] Work Phone: E/E' Ratio Septal 23 [facility] [employer] Phone: Ejection Fraction (3D) 50 % Tr [facility] [employer] Phone: FS 26 % [employer] Phone: GLS -14.8 % [employer] Phone: Interpretation and review of laboratory results Abnormal [employer] Phone: IVSD 1.4 cm Abnormal 0.6 - 1.0 cm [employer] Phone: LA Area Sys (A2C) 22 cm2 [employer] Phone: LA Area Sys (A4C) 19 cm2 [employer] Phone: LA Dimension Index 2D 2.2 cm/m2 Tri [facility] [employer] Phone: LA Size 4.7 cm [employer] [employer] Phone: LA Volume (BP) 62 mL [employer] [employer] Phone: LA Volume Index (BP) 29 mL/m2 [facility] [employer] Phone: LA/Ao Ratio 1.5 [employer] [employer] Phone: Left Atrium Major Clendenin 5.5 cm Tr [facility] [employer] Phone: Left Atrium Minor Clendenin 6.4 cm Tr [facility] [employer] Phone: LV Bunn Vol 3D 209 mL [employer] Phone: [phone] LV EDV Index (3D) 96 mL/m2 [employer] Phone: [phone] LV ESV Index (3D) 48 mL/m2 [employer] Phone: [phone] LV Mass 2D 331 g [employer] Phone: LV Mass 3D 211 g [employer] Phone: [phone] LV Mass Index 2D 153 g/m2 [employer] Phone: [phone] LV Mass Index 3D 97 g/m2 [employer] Phone: [phone] LV Sys Vol 3D 104 mL [employer] Phone: [phone] LVIDD 5.8 cm 4.2 - 5.8 cm [employer] Phone: [phone] LVIDD Index 2.67 cm/m2 [employer] Phone: [phone] LVIDS 4.3 cm Abnormal 2.5 - 4.0 cm [employer] Phone: [phone] LVIDS Index 1.98 cm/m2 [employer] Phone: [phone] LVOT Area 3.1 cm2 [employer] Phone: [phone] LVOT Diameter 2.0 cm [employer] Phone: [phone] LVOT flow 220 mL/s [employer] Phone: [phone] LVOT Mean Grad 2 mmHg [employer] Phone: [phone] LVOT Mean Carlito 0.7 m/s [employer] Phone: [phone] LVOT Peak Gradient 4 mmHg [employer] Phone: [phone] LVOT Peak Carlito 1.0 m/s [employer] Phone: LVOT Peak VTI 18.4 cm [employer] Phone: LVOT Stroke Index 27 mL/m2 [employer] Phone: LVOT Stroke Volume 58 [facility]: [phone] LVOT:AV VTI Index 0.57 [employer] Phone: LVPWD 1.2 cm Abnormal 0.6 - 1.0 cm [employer] Phone: Microscopic observation Alfredito (Ear) [Interp] 1.5 [employer] Phone: MV E' Tissue Velocity Lateral 9 cm/s [employer] Phone: MV E' Tissue Velocity Septal 4 cm/s [employer] Phone: MV Peak A Carlito 0.59 m/s [employer] Phone: MV Peak E Carlito 0.91 m/s [employer] Phone: Relative Wall Thickness ratio 0.41 [employer] Phone: RV Diastolic Basal Dimension 4.2 cm Abnormal 2.5 - 4.1 cm [employer] Phone: RV Diastolic Length 9.2 cm Abnormal 5.9 - 8.3 cm Tri [facility] [employer] Phone: RV Diastolic Mid Dimension 2.7 cm 1.9 - 3.5 cm [employer] Phone: RV S' 17 cm/s [employer] Phone: TR Peak Gradient 35 mmHg [employer] Phone: TR Peak Velocity 2.97 m/s [employer] Phone: [phone] [employer] Phone: Heart Transthoracicon Left Ventricle: Left ventricle cavity is mildly dilated. There is mild concentric hypertrophy. Systolic function is moderately decreased with an ejection fraction of 35-40%. LV global longitudal strain is reduced. Global longitudinal strain is -14.8%. The inferior wall and the inferolateral wall appear moderately hypokinetic. Left ventricle cavity is mildly dilated. Left ventricular systolic function is moderately decreased with an ejection fraction of 35-40%. Right Ventricle: Right ventricle cavity appears normal. Systolic function is normal. Left Atrium: Left atrium cavity size is normal. Aortic Valve: Number of aortic valve cusps cannot be determined. The leaflets are not thickened and exhibit normal excursion. There is no regurgitation or stenosis. Left Ventricle Left ventricle cavity is mildly dilated. There is mild concentric hypertrophy. Systolic function is moderately decreased with an ejection fraction of 35-40%. LV global longitudal strain is reduced. Global longitudinal strain is -14.8%. The inferior wall and the inferolateral wall appear moderately hypokinetic. Indeterminate diastolic function. Right Ventricle Right ventricle cavity appears normal. Systolic function is normal. Left Atrium Left atrium cavity size is normal. Right Atrium Right atrium cavity is normal. IVC/SVC Inferior vena cava structure is normal. Mitral Valve The leaflets are not thickened and exhibit normal excursion. There is trace regurgitation. There is no significant stenosis noted. Tricuspid Valve Tricuspid valve structure is normal. There is trace regurgitation. The estimated RVSP is <40 mmHg. There is no significant tricuspid valve stenosis. Aortic Valve Number of aortic valve cusps cannot be determined. The leaflets are not thickened and exhibit normal excursion. There is no regurgitation or stenosis. Pulmonic Valve The pulmonic valve was not well visualized. No significant pulmonic valve regurgitation. No significant pulmonary valve stenosis noted. Ascending Aorta The aorta appears normal in size. Pericardium Pericardium appears normal. There is no pericardial effusion. Study Details Overall the study quality was adequate. Additional technique includes 3D imaging and postprocessing performed without an independent workstation and myocardial strain. The underlying ECG rhythm was sinus rhythm. Study was difficult due to: lung artifact. CV PACS Radiology Study observation (narrative) Host Committee 12-Lead ECGon 11-09-2023 P Wave Clendenin 69 degrees Host Committee P-R Interval 154 ms Host Committee Pathologist interpretation (Bld) [Interp] Normal sinus rhythm Left axis deviation Minimal voltage criteria for LVH, may be normal variant ( [employer] product ) Inferior infarction , age undetermined Abnormal ECG Confirmed by Reilly NI, Morgan ([id number]), online content editor Yen Jeffery ([id number]) on 11/09/2023 6:21:32 AM Host Committee Q-T Interval 436 ms [facility] QRS Duration 112 ms Host Committee QTc 457 ms [facility] R Clendenin -33 degrees [facility] Troponin T.cardiac [Mass/Vol] 6 ug/L degrees [facility] Bacteria Bld Culton 11-09-19 24 Bacteria identified Cx Nom (Bld) Culture, Blood Status = F No growth at 5 days Normal [facility] Comment on above: Order Comment: From a different site than #1. Performed By: #### 6 00-7 #### [facility] [place] ([facility] [address] [place] [address] Bacteria identified Cx Nom (Bld) Culture, Blood Status = F No growth at 5 days Normal [facility] Comment on above: Performed By: #### 6 00-7 #### [facility] [place] [facility] [address] [place] [address] Basic metabolic 2000 panelon 11-09-2023 Anion gap [Moles/Vol] 10 mmol/L 6 - 18 [employer] Calcium [Mass/Vol] 8.3 mg/dL Low 8.9 - 10. 3 mg/dL [facility] Chloride [Moles/Vol] 107 mmol/L 98 - 10 7 mmol/L [facility] CO2 [Moles/Vol] 25 mmol/L 22 - 32 mmol/L [facility] Creatinine [Mass/Vol] 1.22 mg/dL 0.60 - 1.30 mg/dL [facility] GFR/1.73 sq M.predicted among non-blacks MDRD (S/P/Bld) [Vol rate/Area] 61 mL/min/{1.73_m2} - PINF [facility] Comment on above: Calculation based on the Chronic Kidney Disease Epidemiology Collaboration (CKD-EPI) equation refit without adjustment for race. Glucose [Mass/Vol] 154 mg/dL High 70 - 99 mg/dL [employer] Interpretation and review of laboratory results Abnormal [facility] [employer] Potassium [Moles/Vol] 3.9 mmol/L 3.6 - 5.1 mmol/L [facility] Sodium [Moles/Vol] 142 mmol/L 136 - 145 mmol/L [facility] [employer] Urea nitrogen [Mass/Vol] 16 mg/dL 8 - 20 mg/dL [facility] Urea nitrogen/Creatinine [Mass ratio] 13.1 mg/mg 12.0 - 20.0 [facility] Procalcitonin 0.06 ng/mL Normal <0.50 [facility] Comment on above: Order Comment: <0.5 Low risk of severe sepsis and/or septic shock.>2.0 High risk of severe sepsis and/or septic shock.Concentrations under 0.5 ng/mL do not exclude local infections or systemic infections in their initial stages (e.g. under six hours from onset of illness.) PCT concentrations between 0.5 and 2.0 ng/mL should be interpreted with consideration of the patient's history. In this range, it is recommended to retest PCT within 6 to 24 hours. Performed By: #### 2 4321-2 ####[facility] [id number] [place] [address] Blood type and Indirect anti body screen panel (Bld)on 11-09-2023 ABO group Nom (Bld) A [facility] Blood group antibody screen Ql Negative [facility] Rh Nom (Bld) Negative [facility] ABO group Nom (Bld) A Normal [facility] Comment on above: Performed By: #### 6 36-1 #### [facility] ([facility] [address] [place] [address] [facility] [address] [place] [address] Rh Type Negative Normal [facility] Comment on above: Performed By: #### 6 36-1 #### [facility] ([facility] [address] [place] [address] [facility] [address] [place] [address] Laboratory - Coagulationon 11-09-2023 ACT Coag (Bld) 66 s BPM [facility] Lactate (Bld) [Mass/Vol]on 11-09-2023 Interpretation and review of laboratory results Abnormal [facility] Lactate [Moles/Vol] 3.4 mmol/L High 0.5 - 2. 0 mmol/L [facility] Lactate [Moles/Vol] 3.4 mmol/L High 0.5-2.0 [facility] Comment on above: Performed By: #### 6 00-7 #### [facility] ([facility]) LAB [address] [place] [address] Interpretation and review of laboratory results Normal [facility] Lactate [Moles/Vol] 2.0 mmol/L 0.5 - 2. 0 mmol/L [facility] Lactate [Moles/Vol] 2.0 mmol/L Normal 0.5-2.0 [facility] Comment on above: Performed By: #### 5 9032-3 ####[facility] ([facility] [id number] [place] [address] MR FOOT WO AND W CONTRAST LE FTon 11-09-2023 MR FOOT WO AND W CONTRAST LEFT EXAMINATION TYPE: MR FOOT WO AND W CONTRAST LEFT DATE OF EXAM : 11/09/2023 8:00 AM HISTORY: Possible first toe osteo COMPARISON: Radiographic exam 11/08/2023 IMPRESSION: FINDINGS/IMPRESSION: Motion degradation of short axis sequences. Ulcer at the medial aspect of the great toe. Marrow signal abnormality of the underlying 1st phalanx, characterized by T2 hyperintense signal, T1 hypointense enhancement, compatible with acute osteomyelitis. T2 hyperintense signal of the head and neck of the adjacent 1st proximal phalanx with preserved T1 signal, consistent with reactive osteitis. Small 1st interphalangeal joint effusion, nonspecific, although septic arthritis is not excluded. Soft tissue swelling and subcutaneous edema of the great toe, presumably cellulitis. No discrete peripheral enhancing fluid collection/abscess is identified. No partial nor full-thickness tendon tear is identified. No evidence of tenosynovitis. Diffuse edema and partial fatty atrophy throughout the plantar musculature, suggesting subacute denervation changes (i.e. diabetes mellitus). -------- FINAL REPORT -------- Dictated By: Roberto Torres Dictated Date: 11/09/2023 09:15 Assigned Physician: Roberto Torres Reviewed and Electronically Signed By: Roberto Torres Signed Date: 11/09/2023 09:19 Workstation ID: [id number] Transcribed By: Self Edit Transcribed Date: 11/09/2023 09:15 Normal [facility] MR Foot - left WO and W cont rast Tex 11-09-2023 FINDINGS/IMPRESSION: Motion degradation of short axis sequences. Ulcer at the medial aspect of the great toe. Marrow signal abnormality of the underlying 1st phalanx, characterized by T2 hyperintense signal, T1 hypointense enhancement, compatible with acute osteomyelitis. T2 hyperintense signal of the head and neck of the adjacent 1st proximal phalanx with preserved T1 signal, consistent with reactive osteitis. Small 1st interphalangeal joint effusion, nonspecific, although septic arthritis is not excluded. Soft tissue swelling and subcutaneous edema of the great toe, presumably cellulitis. No discrete peripheral enhancing fluid collection/abscess is identified. No partial nor full-thickness tendon tear is identified. No evidence of tenosynovitis. Diffuse edema and partial fatty atrophy throughout the plantar musculature, suggesting subacute denervation changes (i.e. diabetes mellitus). -------- FINAL REPORT -------- Dictated By: Roberto Torres Dictated Date: 11/09/2023 09:15 Assigned Physician: Roberto Torres Reviewed and Electronically Signed By: Roberto Torres Signed Date: 11/09/2023 09:19 Workstation ID: [id number] Transcribed By: Self Edit Transcribed Date: 11/09/2023 09:15 [employer] EXAMINATION TYPE: MR FOOT WO AND W CONTRAST LEFT DATE OF EXAM : 11/09/2023 8:00 AM HISTORY: Possible first toe osteo COMPARISON: Radiographic exam 11/08/2023 POWERSCRIBE Roberto Torres MD - 11/09/2023 EXAMINATION TYPE: MR FOOT WO AND W CONTRAST LEFT DATE OF EXAM : 11/09/2023 8:00 AM HISTORY: Possible first toe osteo COMPARISON: Radiographic exam 11/08/2023 IMPRESSION: FINDINGS/IMPRESSION: Motion degradation of short axis sequences. Ulcer at the medial aspect of the great toe. Marrow signal abnormality of the underlying 1st phalanx, characterized by T2 hyperintense signal, T1 hypointense enhancement, compatible with acute osteomyelitis. T2 hyperintense signal of the head and neck of the adjacent 1st proximal phalanx with preserved T1 signal, consistent with reactive osteitis. Small 1st interphalangeal joint effusion, nonspecific, although septic arthritis is not excluded. Soft tissue swelling and subcutaneous edema of the great toe, presumably cellulitis. No discrete peripheral enhancing fluid collection/abscess is identified. No partial nor full-thickness tendon tear is identified. No evidence of tenosynovitis. Diffuse edema and partial fatty atrophy throughout the plantar musculature, suggesting subacute denervation changes (i.e. diabetes mellitus). -------- FINAL REPORT -------- Dictated By: Roberto Torres Dictated Date: 11/09/2023 09:15 Assigned Physician: Roberto Torres Reviewed and Electronically Signed By: Roberto Torres Signed Date: 11/09/2023 09:19 Workstation ID: [id number] Transcribed By: Self Edit Transcribed Date: 11/09/2023 09:15 [facility] [employer] MR Foot - left WO and W cont rast IVOrdered By: Roberto Torres on 11-09-2023 [facility] Work Phone: Magnesiumon 11-09-2023 Magnesium [Mass/Vol] 1.8 mg/dL 1.8 - 2 .5 mg/dL [facility] Magnesium [Mass/Vol]on 11-08 Interpretation and review of laboratory results Normal [facility] High Sensitivity Troponin I 35 ng/L High <20 [facility] Comment on above: Performed By: #### 1 9123-9 #### [facility] [address] [place] [address] No Panel Informationon 11-08 Radiology Study observation (narrative) [facility] 1. Peribronchial cuffing which can be seen in bronchitis or asthma. 2. Increased interstitial markings at the lung bases. Recommend correlation with prior outside radiographs to determine chronicity. 3. Moderate cardiomegaly. Left foot: Diffuse soft tissue swelling about the distal calf, ankle and foot. There is soft tissue swelling of the great toe as well. There is lucency and comminuted fracture of the distal phalanx of the great toe. There is mild osteoarthritis. IMPRESSION: 1. Lucency comminuted fracture of the great toe. This may be due to posttraumatic fracture or due to osteomyelitis. Recommend clinical correlation. 2. Diffuse soft tissue swelling of the distal calf, ankle and foot. 3. Mild osteoarthritis. -------- FINAL REPORT -------- Dictated By: Vickey Joshi Dictated Date: 11/09/2023 00:06 Assigned Physician: Vickey Joshi Reviewed and Electronically Signed By: Vickey Joshi Signed Date: 11/09/2023 00:09 Workstation ID: [id number] Transcribed By: Self Edit Transcribed Date: 11/09/2023 00:06 [employer] EXAMINATION TYPE: XR FOOT 3+ VIEWS LEFT, XR CHEST 1 VIEW DATE OF EXAM : 11/08/2023 10:54 PM HISTORY: fracture, COMPARISON: NONE FINDINGS: AP upright chest: (Place. There are increased interstitial markings at the lung bases. The upper lungs are clear. No pneumothorax is significant pleural effusion. Moderate cardiomegaly. Calcification of thoracic aorta. Peribronchial cuffing. POWERSCRIBE Vickey Joshi MD - 11/09/2023 EXAMINATION TYPE: XR FOOT 3+ VIEWS LEFT, XR CHEST 1 VIEW DATE OF EXAM : 11/08/2023 10:54 PM HISTORY: fracture, COMPARISON: NONE FINDINGS: AP upright chest: (Place. There are increased interstitial markings at the lung bases. The upper lungs are clear. No pneumothorax is significant pleural effusion. Moderate cardiomegaly. Calcification of thoracic aorta. Peribronchial cuffing. IMPRESSION: 1. Peribronchial cuffing which can be seen in bronchitis or asthma. 2. Increased interstitial markings at the lung bases. Recommend correlation with prior outside radiographs to determine chronicity. 3. Moderate cardiomegaly. Left foot: Diffuse soft tissue swelling about the distal calf, ankle and foot. There is soft tissue swelling of the great toe as well. There is lucency and comminuted fracture of the distal phalanx of the great toe. There is mild osteoarthritis. IMPRESSION: 1. Lucency comminuted fracture of the great toe. This may be due to posttraumatic fracture or due to osteomyelitis. Recommend clinical correlation. 2. Diffuse soft tissue swelling of the distal calf, ankle and foot. 3. Mild osteoarthritis. -------- FINAL REPORT -------- Dictated By: Vickey Joshi Dictated Date: 11/09/2023 00:06 Assigned Physician: Vickey Joshi Reviewed and Electronically Signed By: Vickey Joshi Signed Date: 11/09/2023 00:09 Workstation ID: [id number] Transcribed By: Self Edit Transcribed Date: 11/09/2023 00:06 Host Committee No Panel InformationOrdered By: Vickey Joshi on 11-09-2023 [facility] Work Phone: PT Coag (PPP) [Time]on 11-08 INR Coag (PPP) [Relative time] 0.9 {INR} NINF - 5.0 Host Committee Interpretation and review of laboratory results Normal Host Committee PT Coag (Bld) [Time] 13.0 s Neura The recommended therapeutic INR range for most cardiac indications is 2.0-3.0 For high intensity therapy (i.e. mechanical heart valves), the recommended range is 2.5-3.5 [employer] aPTT Coag (Bld) [Time] 26.5 s Normal 23.3-35.3 Mo [facility] Comment on above: Order Comment: The r ecommended therapeutic INR range for most cardiac indications is 2.0-3.0For high intensity therapy (i.e. mechanical heart valves), the recommended range is 2.5-3.5 Performed By: #### 6 00-7 #### [facility] ([facility]) LAB [address] [place] [address] Procalcitoninon 11-09-2023 Procalcitonin [Mass/Vol] 0.06 ng/mL NINF - 0.50 ng/mL Host [facility] Procalcitonin [Mass/Vol]on 0 11-09-2023 Interpretation and review of laboratory results Normal Host Committee <0.5 Low risk of severe sepsis and/or septic shock. >2.0 High risk of severe sepsis and/or septic shock. Concentrations under 0.5 ng/mL do not exclude local infections or systemic infections in their initial stages (e.g. under six hours from onset of illness.) PCT concentrations between 0.5 and 2.0 ng/mL should be interpreted with consideration of the patient's history. In this range, it is recommended to retest PCT within 6 to 24 hours. [employer] TRANSTHORACIC ECHOCARDIOGRAM (TTE) COMPLETE (CONTRAST/BUBBLE/3D PRN)on 11-09-2023 TRANSTHORACIC ECHOCARDIOGRAM (TTE) COMPLETE (CONTRAST/BUBBLE/3D PRN) This is a summary report. The complete report is available in the patient's medical record. If you cannot access the medical record, please contact the sending organization for a detailed fax or copy. ? Left?Ventricle: Left ventricle cavity is mildly dilated. There is mild concentric hypertrophy. Systolic function is moderately decreased with an ejection fraction of 35-40%. LV global longitudal strain is reduced. Global longitudinal strain is -14.8%. The inferior wall and the inferolateral wall appear moderately hypokinetic. ? Left ventricle cavity is mildly dilated. Left ventricular systolic function is moderately decreased with an ejection fraction of 35-40%. ? Right?Ventricle: Right ventricle cavity appears normal. Systolic function is normal. ? Left?Atrium: Left atrium cavity size is normal. ? Aortic?Valve: Number of aortic valve cusps cannot be determined. The leaflets are not thickened and exhibit normal excursion. There is no regurgitation or stenosis. LA MINOR: 6.4 cm LA MAJOR: 5.5 cm LEFT ATRIUM AREA SYSTOLIC (APICAL 2 CHAMBER): 22 cm2 LEFT ATRIUM AREA SYSTOLIC (APICAL 4 CHAMBER): 19 cm2 LEFT ATRIUM VOLUME (MOD BIPLANE): 62 mL LEFT ATRIUM SIZE: 4.7 cm AV MEAN GRADIENT: 7 mmHg DOP CALC AO VTI: 32.2 cm DOP CALC AO PEAK CARLITO: 1.9 m/s AV PEAK GRADIENT: 14 mmHg AV AREA BY CONTINOUS VTI: 1.8 cm2 AV AREA PEAK VELOICTY: 1.7 cm2 AORTIC ROOT: 3.1 cm ASCENDING AORTA: 3.2 cm ECHO 3D EJECTION FRACTION: 50 % DOP CALC LVOT STROKE VOLUME: 58 mL LEFT VENTRICLE DIASTOLIC VOLUME 3D: 209 mL LEFT VENTRICLE SYSTOLIC VOLUME 3D: 104 mL LEFT VENTRICULAR MASS 3D: 211 g INTERVENTRICULAR SEPTUM: 1.4 cm LEFT VENTRICULAR INTERNAL DIMENSION IN DIASTOLE: 5.8 cm LEFT INTERNAL DIMENSION IN SYSTOLE: 4.3 cm DOP CALC LVOT DIAMETER: 2.0 cm LVOT MEAN VELOCITY: 0.7 m/s AV LVOT MEAN GRADIENT: 2 mmHg DOP CALC LVOT PEAK CARLITO VTI: 18.4 cm DOP CALC LVOT PEAK CARLITO: 1.0 m/s AV LVOT PEAK GRADIENT: 4 mmHg POSTERIOR WALL: 1.2 cm MV E' LATERAL TISSUE VELOCITY: 9 cm/s MV E'TISSUE CARLITO-MED: 4 cm/s LV GLOBAL LONGITUDINAL STRAIN: -14.8 % DOP CALC LVOT AREA: 3.1 cm2 E WAVE DECELARTION TIME: 214 ms MV PEAK A CARLITO: 0.59 m/s MV PEAK E CARLITO: 0.91 m/s RIGHT VENTRICLE DIASTOLIC BASAL DIMENSION: 4.2 cm RIGHT VENTRICLE DIASTOLIC LENGTH: 9.2 cm RIGHT VENTRICLE DIASTOLIC MID DIMENSION: 2.7 cm TASV: 17 cm/s TR PEAK VELOCITY: 2.97 m/s TR MAX P mmHg E/E' RATIO SEPTAL: 23 E/E' RATIO AVERAGED: 16 DOP CALC LVOT STROKE INDEX: 27 mL/m2 LEFT ATRIUM DIMENSION INDEX 2D: 2.2 cm/m2 LV RELATIVE WALL THICKNESS RATIO: 0.41 LEFT VENTRICULAR MASS INDEX 3D: 97 g/m2 LVOT AV VTI INDEX: 0.57 FRACTIONAL SHORTENIN % LEFT VENTRICULAR MASS: 331 g ASCENDING AORTA INDEX: 1.47 cm/m2 LVOT FLOW: 220 mL/s YASSINE INDEX (CONT VTI): 0.83 cm2/m2 YASSINE INDEX (PK CARLITO): 0.78 cm2/m2 LVIDD INDEX: 2.67 cm/m2 LVIDS INDEX: 1.98 cm/m2 AO ROOT INDEX: 1.43 cm/m2 LEFT VENTRICLE END DIASTOLIC VOLUME INDEX (3D): 96 mL/m2 LEFT VENTRICLE END SYSTOLIC VOLUME INDEX (3D): 48 mL/m2 AV VELOCITY RATIO: 0.53 E/A RATIO: 1.5 E/E' RATIO: 10 LEFT ATRIUM VOLUME INDEX (MOD BIPLANE): 29 mL/m2 LEFT VENTRICLE MASS INDEX: 153 g/m2 LA/AORTA RATIO: 1.5 BSA FOR ECHO PROCEDURE: 2.22 m2 Normal [facility] Tropinin I.cardiac panel Hig h sensitivity methodon 11-09-2023 Interpretation and review of laboratory results Abnormal [facility] Troponin I.cardiac High sensitivity method [Mass/Vol] 35 ng/L High NINF - 20 ng/L [employer] Interpretation and review of laboratory results Abnormal [facility] Committee Troponin I.cardiac High sensitivity method [Mass/Vol] 45 ng/L High NINF - 20 ng/L [employer] US.doppler Lower extremity a rtery - bilateralOrdered By: Kang Blackwell on 11-09-2023 Body surface area Derived from formula 2.22 m2 Host Committee Work Phone: [phone] Left GEORGETTE 1.01 [facility] [employer] Work Phone: Left arm BP 145 mmHg [facility] Work Phone: Left Dorsalis Pedis 131 mmHg [facility] Work Phone: Left posterior tibial 147 mmHg Tri [facility]ity [employer] Work Phone: Left TBI 0.63 [facility] Work Phone: Left toe pressure 91 mmHg [facility] Work Phone: Right GEORGETTE 1.09 [facility] [employer] Work Phone: Right Dorsalis Pedis 141 mmHg [facility] [employer] Work Phone: Right posterior tibial 158 mmHg [facility] [employer] Work Phone: Right TBI 0.59 [facility] [employer] Work Phone: Right toe pressure 86 mmHg [facility] [employer] Work Phone: [facility] [employer] Work Phone: US.doppler Lower extremity a rtery - bilateralon 11-09-2023 Right: Ankle brachial index suggestive of normal arterial perfusion to the level of the ankle at rest. The PVR waveforms at the ankle and metatarsal level are normal. Abnormal toe brachial index of the right lower extremity. Left: Ankle brachial index suggestive of normal arterial perfusion to the level of the ankle at rest. The PVR waveforms at the ankle and metatarsal level are normal. Abnormal toe brachial index of the left lower extremity. Prior Study Prior procedure(s): GEORGETTE. Prior study date: 01/08/23. Prior study findings: Right: 0.94, Left: 1.07. Right GEORGETTE The ankle brachial index suggests normal perfusion of the right lower extremity at rest. The toe brachial index is abnormal. Left GEORGETTE The ankle brachial index suggests normal perfusion of the left lower extremity at rest. The toe brachial index is abnormal. Right Lower Arterial Doppler The posterior tibial and dorsalis pedis arteries have triphasic flow. Ankle and foot pulse volume recording waveforms are normal. Toe photoplethysmography waveforms are normal. Left Lower Arterial Doppler The posterior tibial artery has triphasic, hyperemic flow. The dorsalis pedis artery has biphasic, non-reversed flow. Ankle and foot pulse volume recording waveforms are normal. Toe photoplethysmography waveforms are normal. Telecom Coordinator Details A doppler analysis ultrasound was performed. Continuous wave doppler, pulsed volume recording (PVR) and photo plethysmography was performed. Overall the study quality was good. Preliminary Report Communication Preliminary report called to Sigrid Hopkins RN on 11/09/2023 at 11:45 EDT. CV PACS VAS US ANKLE BRACHIAL INDEXo n 11-09-2023 VAS US ANKLE BRACHIAL INDEX This is a summary report. The complete report is available in the patient's medical record. If you cannot access the medical record, please contact the sending organization for a detailed fax or copy. Right: Ankle brachial index suggestive of normal arterial perfusion to the level of the ankle at rest. The PVR waveforms at the ankle and metatarsal level are normal. Abnormal toe brachial index of the right lower extremity. Left: Ankle brachial index suggestive of normal arterial perfusion to the level of the ankle at rest. The PVR waveforms at the ankle and metatarsal level are normal. Abnormal toe brachial index of the left lower extremity. 145 86 91 158 141 147 131 1.01 1.09 0.63 0.59 2.22 Normal [facility] aPTT Coag (Bld) [Time]on aPTT Coag (PPP) [Time] 26.5 s Tr [facility] [employer] Interpretation and review of laboratory results Normal [facility] Basic metabolic 2000 panelon 11-08-2023 Anion gap [Moles/Vol] 7 mmol/L 6 - 18 [facility] Calcium [Mass/Vol] 8.0 mg/dL Low 8.9 - 10. 3 mg/dL [facility] [employer] Chloride [Moles/Vol] 110 mmol/L High 98 - 10 7 mmol/L [facility] [employer] CO2 [Moles/Vol] 23 mmol/L 22 - 32 mmol/L [facility] [employer] Creatinine [Mass/Vol] 1.19 mg/dL 0.60 - 1.30 mg/dL [facility] GFR/1.73 sq M.predicted among non-blacks MDRD (S/P/Bld) [Vol rate/Area] 63 mL/min/{1.73_m2} - [facility] Comment on above: Calculation based on the Chronic Kidney Disease Epidemiology Collaboration (CKD-EPI) equation refit without adjustment for race. Glucose [Mass/Vol] 144 mg/dL High 70 - 99 mg/dL [facility] [employer] Interpretation and review of laboratory results Abnormal [facility] Potassium [Moles/Vol] 4.2 mmol/L 3.6 - 5.1 mmol/L [facility] Sodium [Moles/Vol] 140 mmol/L 136 - 145 mmol/L [facility] Urea nitrogen [Mass/Vol] 16 mg/dL 8 - 20 mg/dL [facility] [employer] Urea nitrogen/Creatinine [Mass ratio] 13.4 mg/mg 12.0 - 20.0 [facility] [employer] High Sensitivity Troponin I 44 ng/L High <20 [facility] Comment on above: Performed By: #### 2 4321-2 ####[facility] [id number] [place] [address] C-reactive proteinon 024 CRP [Mass/Vol] 2.3 mg/dL High 0.0 - 1.0 mg/dL [facility] CBC W Differential panel, mn thod unspecified (Bld)on 11-08-2023 Basophils (Bld) [#/Vol] 0.01 10*3/uL [facility] Basophils/100 WBC (Bld) 0.3 % 0.0 - 2.0 % [facility] Eosinophils (Bld) [#/Vol] 0.04 10*3/uL [facility] Eosinophils/100 WBC (Bld) 1.0 % 0.0 - 7.0 % [facility] Erythrocyte distribution width (RBC) [Ratio] 13.8 % 11.0 - 14.8 % [facility] Hematocrit (Bld) [Volume fraction] 39.4 % 39.0 - 49.0 % [facility] Hemoglobin (Bld) [Mass/Vol] 12.9 g/dL Low 13.5 - 17.5 g/dL [facility] Immature granulocytes (Bld) [#/Vol] 0.02 10*3/uL [facility] Immature granulocytes/100 WBC (Bld) 0.5 % 0.0 - 1.2 % [facility] Immature Platelet Fraction 4.0 % 1.4 - 10.8 % [facility] Interpretation and review of laboratory results Abnormal [facility] Lymphocytes (Bld) [#/Vol] 1.34 10*3/uL [facility] Lymphocytes/100 WBC (Bld) 33.9 % 17.9 - 49.6 % [facility] MCH (RBC) [Entitic mass] 30.4 pg [facility] MCHC (RBC) [Mass/Vol] 32.7 g/dL 30.8 - 35.3 g/dL [facility] MCV (RBC) [Entitic vol] 92.9 fL [facility] Monocytes (Bld) [#/Vol] 0.37 10*3/uL [facility] Monocytes/100 WBC (Bld) 9.4 % 0.0 - 12.0 % [facility] Neutrophils (Bld) [#/Vol] 2.17 10*3/uL [facility] Neutrophils/100 WBC (Bld) 54.9 % 38.1 - 75.5 % [facility] Platelet mean volume (Bld) [Entitic vol] 11.0 fL [facility] Platelets (Bld) [#/Vol] 139 10*3/uL Low [facility] RBC (Bld) [#/Vol] 4.24 10*6/uL Low [facility] WBC (Bld) [#/Vol] 4.0 10*3/uL Low [facility] Sed Rate 39 mm/hr High 0-15 [facility] Comment on above: Performed By: #### 6 36-1 #### [facility] [address] [place] [address] [facility] [address] [place] [address] CRP [Mass/Vol]on 11-08-2023 Interpretation and review of laboratory results Abnormal [facility] ESR (Bld) [Velocity]on 11-07 Interpretation and review of laboratory results Abnormal [facility] Lactate (Bld) [Mass/Vol]on 0 11-08-2023 Interpretation and review of laboratory results Abnormal [facility] Lactate [Moles/Vol] 2.2 mmol/L High 0.5 - 2. 0 mmol/L [facility] Lactate [Moles/Vol] 2.2 mmol/L High 0.5-2.0 [facility] Comment on above: Performed By: #### 6 36-1 #### [facility] [address] [address] [facility] [address] [place] [address] Natriuretic peptide B [Mass/ Vol]on 11-08-2023 Interpretation and review of laboratory results Abnormal [facility] Natriuretic peptide B (Bld) [Mass/Vol] 316 pg/mL High [facility] <100: CHF is unlikel y 100-400: Possible left ventricular dysfunction-unlikely acute decompensation >400: Suspicious for decompensated heart failure. [employer] BNP 316 pcg/mL High 0-100 [facility] Comment on above: Order Comment: <100: CHF is [id number]: Possible left ventricular dysfunction-unlikely acute decompensation>400: Suspicious for decompensated heart failure. Performed By: #### 3 0934-4 ####[facility] [id number] [place] [address] No Panel Informationon 11-07 Radiology Study observation (narrative) [facility] Sedimentation rateon 024 ESR (Bld) [Velocity] 39 mm/h High [employer] Tropinin I.cardiac panel Hig h sensitivity methodon 11-08-2023 Interpretation and review of laboratory results Abnormal [facility] Troponin I.cardiac High sensitivity method [Mass/Vol] 44 ng/L High NINF - 20 ng/L [employer] XR CHEST 1 VIEWon 11-08-2023 XR CHEST 1 VIEW EXAMINATION TYPE: XR FOOT 3+ VIEWS LEFT, XR CHEST 1 VIEW DATE OF EXAM : 11/08/2023 10:54 PM HISTORY: fracture, COMPARISON: NONE FINDINGS: AP upright chest: (Place. There are increased interstitial markings at the lung bases. The upper lungs are clear. No pneumothorax is significant pleural effusion. Moderate cardiomegaly. Calcification of thoracic aorta. Peribronchial cuffing. IMPRESSION: 1. Peribronchial cuffing which can be seen in bronchitis or asthma. 2. Increased interstitial markings at the lung bases. Recommend correlation with prior outside radiographs to determine chronicity. 3. Moderate cardiomegaly. Left foot: Diffuse soft tissue swelling about the distal calf, ankle and foot. There is soft tissue swelling of the great toe as well. There is lucency and comminuted fracture of the distal phalanx of the great toe. There is mild osteoarthritis. IMPRESSION: 1. Lucency comminuted fracture of the great toe. This may be due to posttraumatic fracture or due to osteomyelitis. Recommend clinical correlation. 2. Diffuse soft tissue swelling of the distal calf, ankle and foot. 3. Mild osteoarthritis. -------- FINAL REPORT -------- Dictated By: Vickey Joshi Dictated Date: 11/09/2023 00:06 Assigned Physician: Vickey Joshi Reviewed and Electronically Signed By: Vickey Joshi Signed Date: 11/09/2023 00:09 Workstation ID: [id number] Transcribed By: Self Edit Transcribed Date: 11/09/2023 00:06 Normal [facility] XR FOOT 3+ VIEWS LEFTon 10-14 XR FOOT 3+ VIEWS LEFT EXAMINATION TYPE: XR FOOT 3+ VIEWS LEFT, XR CHEST 1 VIEW DATE OF EXAM : 11/08/2023 10:54 PM HISTORY: fracture, COMPARISON: NONE FINDINGS: AP upright chest: (Place. There are increased interstitial markings at the lung bases. The upper lungs are clear. No pneumothorax is significant pleural effusion. Moderate cardiomegaly. Calcification of thoracic aorta. Peribronchial cuffing. IMPRESSION: 1. Peribronchial cuffing which can be seen in bronchitis or asthma. 2. Increased interstitial markings at the lung bases. Recommend correlation with prior outside radiographs to determine chronicity. 3. Moderate cardiomegaly. Left foot: Diffuse soft tissue swelling about the distal calf, ankle and foot. There is soft tissue swelling of the great toe as well. There is lucency and comminuted fracture of the distal phalanx of the great toe. There is mild osteoarthritis. IMPRESSION: 1. Lucency comminuted fracture of the great toe. This may be due to posttraumatic fracture or due to osteomyelitis. Recommend clinical correlation. 2. Diffuse soft tissue swelling of the distal calf, ankle and foot. 3. Mild osteoarthritis. -------- FINAL REPORT -------- Dictated By: Vickey Joshi Dictated Date: 11/09/2023 00:06 Assigned Physician: Vickey Joshi Reviewed and Electronically Signed By: Vickey Joshi Signed Date: 11/09/2023 00:09 Workstation ID: [id number] Transcribed By: Self Edit Transcribed Date: 11/09/2023 00:06 Normal [facility] ANAon 10-30-2023 CNOV Office Visit (UCWSTR ) YONI VILLALPANDO ([id number]) 1945 M Date Time Provider Department 10/30/23 1:00 PM AAKASH JIANG [facility] During your visit today, we recorded the following information about you: Aaaksh Jiang APRN.CNP 10/30/2023 1:07 PM Signed On evaluation patient's left great toe is erythematous and purulent looking on the distal half. On the plantar aspect it appears as though approximately half of the pad of the great toe is eroded away. There is surrounding erythema extending back into the left foot. Patient does not think he is diabetic but does note he has a nonhealing wound on the other foot also. He states that he thinks he injured it about a week ago pushing a wheelchair however to me that the wound looks as though it is more chronic than that. I explained to patient my concern for sepsis and osteomyelitis and the need for further evaluation at a facility with higher level of care and patient will self transport to [facility]. Patient otherwise is nontoxic-appearing. Emelia Gresham MA 10/30/2023 1:21 PM Signed Addended by: EMELIA GRESHAM on: 10/30/2023 01:21 PM Modules accepted: Orders Allergies As of Date: 10/30/2023 (Not on File) Date Reviewed: Never Reviewed Primary Visit Diagnosis:Injury of left great toe, initial encounter [S99.922A] Prescriptions as of 10/30/2023 - albuterol (PROVENTIL) 2.5 mg /3 mL (0.083 %) nebulizer solution albuterol sulfate 2.5 mg/3 mL (0.083 %) solution for nebulization - albuterol HFA (PROVENTIL HFA, VENTOLIN HFA) 90 mcg/actuation inhaler Inhale 2 Puffs as instructed every 6 hours as needed. - allopurinol (ZYLOPRIM) 100 mg tablet Take 1 tablet by mouth once daily. - amLODIPine (NORVASC) 5 mg tablet Take 5 mg by mouth once daily. - Ascorbic Acid 1,000 mg tablet Take 1,000 mg by mouth once daily. - apixaban (ELIQUIS) 5 mg tab(s) Take 10 mg by mouth two times a day. - aspirin 81 mg chewable tablet Take 81 mg by mouth once daily. - atorvastatin (LIPITOR) 40 mg tablet Take 40 mg by mouth daily at bedtime. - Azelastine HCl (OPTIVAR) 0.05 % ophthalmic solution 1 Drop two times a day. - azelastine 0.1% nasal spray Use 1 [place] in each nostril two times a day. - carvedilol (COREG) 3.125 mg tablet Take 3.125 mg by mouth two times a day with meals. - Cholecalciferol, Vitamin D3, 25 mcg (1,000 unit) cap Take 1,000 Units by mouth once daily. - cyanocobalamin (VITAMIN B-12) 1,000 mcg tab Take 1,000 mcg by mouth two times a day. - dutasteride (AVODART) 0.5 mg capsule Take 0.5 mg by mouth once daily. - esomeprazole (NEXIUM) 40 mg capsule Take 40 mg by mouth once daily. - ferrous sulfate 325 mg (65 mg iron) tablet Take 325 mg by mouth once daily. - finasteride (PROSCAR) 5 mg tablet Take 5 mg by mouth once daily. - fluticasone-salmeterol HFA (ADVAIR HFA) 115-21 mcg/actuation inhaler Inhale 2 Puffs as instructed two times a day. - fluticasone-salmeterol (ADVAIR DISKUS) 100-50 mcg/dose inhaler Inhale 1 Puff as instructed two times a day. - fluticasone (FLONASE) 50 mcg/actuation nasal spray Use 1 [place] in the nose once daily. - furosemide (LASIX) 40 mg tablet Take 40 mg by mouth once daily. - gabapentin (NEURONTIN) 300 mg capsule Take 300 mg by mouth daily at bedtime. - hydroCHLOROthiazide 12.5 mg tablet Take 12.5 mg by mouth once daily. - methylPREDNISolone (MEDROL DOSE-PACK) 4 mg Dose-Pack as directed. TAKE DIRECTED ON PACKAGE. - nitroglycerin sublingual (NITROSTAT) 0.4 mg SL tablet Dissolve under the tongue. - potassium chloride ER (KLOR-CON M10) 10 mEq tablet Take 10 mEq by mouth once daily. - rOPINIRole (REQUIP) 2 mg tablet Take 2 mg by mouth daily at bedtime. - sacubitril-valsartan (ENTRESTO) 49-51 mg tablet Take 1 tablet by mouth two times a day. - tamsulosin (FLOMAX) 0.4 mg Take 1 capsule by mouth once daily. - valsartan (DIOVAN) 320 mg tablet Take 320 mg by mouth once daily. Medication notes this encounter AMLODIPINE 5 MG TABLET >> Emelia Gresham MA 10/30/2023 1:17 PM >> SunOct 30, 2023 1:17 PM 5 mg , TAKE 1 TABLET DAILY >> Emelia Gresham MA 10/30/2023 1:17 PM >> EMELIA GRESHAM SunOct 30, 2023 1:17 PM ASCORBIC ACID (VITAMIN C) 1,000 MG TABLET >> Emelia Gresham MA 10/30/2023 1:17 PM >> SunOct 30, 2023 1:17 PM 1000 MG PO DAILY APIXABAN 5 MG TABLET >> Emelia Gresham MA 10/30/2023 1:17 PM >> SunOct 30, 2023 1:17 PM Provider Administration Instructions: DOSE ADJUSTMENT RECOMMENDED AFTER 7 DAYS (07/01) ATORVASTATIN 40 MG TABLET >> Emelia Gresham MA 10/30/2023 1:17 PM >> SunOct 30, 2023 1:17 PM 40 MG PO BEDTIME 40 MG PO BEDTIME AZELASTINE 137 MCG (0.1 %) NASAL SPRAY >> Emelia Gresham MA 10/30/2023 1:17 PM >> SunOct 30, 2023 1:17 PM 0.1 % Nasally Twice a day, 1 puff in each nostril CARVEDILOL 3.125 MG TABLE (more content not included)... Normal [facility] Bacteria identified Sterile body fluid culture Nom (Unsp spec)Ordered By: Marty Mosquera on 01-09-2023 Bacteria identified Cx Nom (Body fld) No growth at 2 days [facility] Microscopic observation Gram stain Nom (Unsp spec) Few Polymorphonuclear leukocytes [facility] Microscopic observation Gram stain Nom (Unsp spec) No Epithelial cells [facility] Microscopic observation Gram stain Nom (Unsp spec) No organisms seen [facility] Basic metabolic 2000 panelon 01-09-2023 Anion gap [Moles/Vol] 9 mmol/L 6 - 18 [employer] Calcium [Mass/Vol] 8.1 mg/dL Low 8.9 - 10. 3 mg/dL [facility] Chloride [Moles/Vol] 108 mmol/L High 98 - 10 7 mmol/L [facility] [employer] CO2 [Moles/Vol] 22 mmol/L 22 - 32 mmol/L [facility] Creatinine [Mass/Vol] 1.07 mg/dL 0.60 - 1.30 mg/dL [facility] GFR/1.73 sq M.predicted among non-blacks MDRD (S/P/Bld) [Vol rate/Area] 72 mL/min/{1.73_m2} - [facility] Comment on above: Calculation based on the Chronic Kidney Disease Epidemiology Collaboration (CKD-EPI) equation refit without adjustment for race. Glucose [Mass/Vol] 100 mg/dL High 70 - 99 mg/dL [employer] [facility] Potassium [Moles/Vol] 4.2 mmol/L 3.6 - 5.1 mmol/L [facility] Sodium [Moles/Vol] 139 mmol/L 136 - 145 mmol/L [facility] Urea nitrogen [Mass/Vol] 16 mg/dL 8 - 20 mg/dL [facility] [employer] Urea nitrogen/Creatinine [Mass ratio] 15.0 mg/mg 12.0 - 20.0 [facility] Vancomycin Pk 18.9 mcg/mL Low 30.0-60.[address] [facility] Comment on above: Order Comment: Danielle naqvi draw vancomycin PEAK 1 hour after the end of the infusion Performed By: #### 2 4321-2 ####[facility] ([facility] [id number] [place] [address] Hemogram and platelets WO di fferential panel (Bld)on 01-09-2023 Basophils (Bld) [#/Vol] 0.01 10*3/uL [facility] Basophils/100 WBC (Bld) 0.2 % 0.0 - 2.0 % [facility] Eosinophils (Bld) [#/Vol] 0.10 10*3/uL [facility] Eosinophils/100 WBC (Bld) 1.9 % 0.0 - 7.0 % [facility] Erythrocyte distribution width (RBC) [Ratio] 13.2 % 11.0 - 14.8 % [facility] Hematocrit (Bld) [Volume fraction] 29.7 % Low 39.0 - 49.0 % [facility] Hemoglobin (Bld) [Mass/Vol] 9.7 g/dL Low 13.5 - 17.5 g/dL [facility] Immature granulocytes (Bld) [#/Vol] 0.02 10*3/uL [facility] Immature granulocytes/100 WBC (Bld) 0.4 % 0.0 - 1.2 % [facility] Interpretation and review of laboratory results Abnormal [facility] Lymphocytes (Bld) [#/Vol] 1.49 10*3/uL [facility] Lymphocytes/100 WBC (Bld) 28.3 % 17.9 - 49.6 % [facility] MCH (RBC) [Entitic mass] 30.4 pg [facility] MCHC (RBC) [Mass/Vol] 32.7 g/dL 30.8 - 35.3 g/dL [facility] MCV (RBC) [Entitic vol] 93.1 fL [facility] Monocytes (Bld) [#/Vol] 0.58 10*3/uL [facility] Monocytes/100 WBC (Bld) 11.0 % 0.0 - 12.0 % [facility] Neutrophils (Bld) [#/Vol] 3.06 10*3/uL [facility] Neutrophils/100 WBC (Bld) 58.2 % 38.1 - 75.5 % [facility] Platelet mean volume (Bld) [Entitic vol] 11.1 fL [facility] Platelets (Bld) [#/Vol] 155 10*3/uL [facility] RBC (Bld) [#/Vol] 3.19 10*6/uL Low [facility] WBC (Bld) [#/Vol] 5.3 10*3/uL [facility] Basophils (Bld) [#/Vol] 0.01 10*3/uL Normal 0.00-0.20 [facility] Comment on above: Performed By: #### 6 00-7 #### [facility] [place] [facility] [address] [place] [address] Basophils/100 WBC (Bld) 0.2 % Normal 0.0-2.0 [facility] Comment on above: Performed By: #### 6 00-7 #### [facility] [place] [facility] [address] [place] [address] 31901 Eosinophils (Bld) [#/Vol] 0.10 10*3/uL Normal 0.00-0.70 [facility] Comment on above: Performed By: #### 6 00-7 #### [facility] [place] [facility] [address] [place] [address]41 Eosinophils/100 WBC (Bld) 1.9 % Normal 0.0-7.0 [facility] Comment on above: Performed By: #### 6 00-7 #### [facility] [place] [facility] [address] [place] [address] Erythrocyte distribution width (RBC) [Ratio] 13.2 % Normal 11.0-14.8 [facility] Comment on above: Performed By: #### 6 00-7 #### [facility] [place] [facility] [address] [place] [address] Hematocrit (Bld) [Volume fraction] 29.7 % Low 39.0-49.0 [facility] Comment on above: Performed By: #### 6 00-7 #### [facility] [place] [facility] [address] [place] [address]336 Hemoglobin (Bld) [Mass/Vol] 9.7 g/dL Low 13.5-17.5 [facility] Comment on above: Performed By: #### 6 -7 #### [facility] [place] [facility] [address] [place] [address] Immature granulocytes (Bld) [#/Vol] 0.02 10*3/uL Normal 0.00-0.10 [facility] Comment on above: Performed By: #### 6 -7 #### [facility] [place] [facility] [address] [place] [address]296 Immature granulocytes/100 WBC (Bld) 0.4 % Normal 0.0-1.2 [facility] Comment on above: Performed By: #### 6 -7 #### [facility] [place] [facility] [address] [place] [address] 13451 Lymphocytes (Bld) [#/Vol] 1.49 10*3/uL Normal 1.00-4.80 [facility] Comment on above: Performed By: #### 6 -7 #### [facility] [place] [facility] [address] [place] [address] 91623 Lymphocytes/100 WBC (Bld) 28.3 % Normal 17.9-49.6 [facility] Comment on above: Performed By: #### 6 -7 #### [facility] [place] [facility] [address] [place] [address] 73723 MCH 30.4 pcg Normal 27.0-34.0 [facility] Comment on above: Performed By: #### 6 -7 #### [facility] [place] [facility] [address] [place] [address] 63547 MCHC (RBC) [Mass/Vol] 32.7 g/dL Normal 30.8-35.3 [facility] Comment on above: Performed By: #### 6 -7 #### [facility] [place] [facility] [address] [place] [address] 71642 MCV (RBC) [Entitic vol] 93.1 fL Normal 80.0-97.0 [facility] Comment on above: Performed By: #### 6 -7 #### [facility] [address] [place] [address] Monocytes (Bld) [#/Vol] 0.58 10*3/uL Normal 0.00-0.90 [facility] Comment on above: Performed By: #### 6 -7 #### [facility] [place] ([facility] [address] [place] [address] 10768 Monocytes/100 WBC (Bld) 11.0 % Normal 0.0-12.0 [facility] Comment on above: Performed By: #### 6 -7 #### [facility] [place] [facility] [address] [place] [address] 55729 Neutrophils Absolute 3.06 K/mcL Normal 1.80-7.70 [facility] Comment on above: Performed By: #### 6 -7 #### [facility] [place] [facility] [address] [place] [address] 09043 Neutrophils/100 WBC (Bld) 58.2 % Normal 38.1-75.5 [facility] Comment on above: Performed By: #### 6 -7 #### [facility] [place] [facility] [address] [place] [address] 08219 Platelet mean volume (Bld) [Entitic vol] 11.1 fL Normal 6.2-12.1 [facility] Comment on above: Performed By: #### 6 -7 #### [facility] [place] [facility] [address] [place] [address] 82046 Platelets (Bld) [#/Vol] 155 10*3/uL Normal 142-424 [facility] Comment on above: Performed By: #### 6 -7 #### [facility] [place] [facility] [address] [place] [address] RBC (Bld) [#/Vol] 3.19 10*6/uL Low 4.30-5.70 [facility] Comment on above: Performed By: #### 6 -7 #### [facility] [place] [address] [place] [address] WBC (Bld) [#/Vol] 5.3 10*3/uL Normal 4.6-10.2 [facility] Comment on above: Performed By: #### 6 00-7 #### [facility] ([facility] [address] [place] [address] No Panel Informationon 01-09 Interpretation and review of laboratory results Abnormal [facility] Vancomycin peak [Moles/Vol]o n 01-09-2023 Vancomycin peak [Mass/Vol] 18.9 Low [facility] Basic metabolic 2000 panelon 01-08-2023 Anion gap [Moles/Vol] 5 mmol/L Low 6 - 18 [facility] [employer] Calcium [Mass/Vol] 7.6 mg/dL Low 8.9 - 10. 3 mg/dL [facility] Chloride [Moles/Vol] 109 mmol/L High 98 - 10 7 mmol/L [facility] CO2 [Moles/Vol] 24 mmol/L 22 - 32 mmol/L [facility] Creatinine [Mass/Vol] 1.18 mg/dL 0.60 - 1.30 mg/dL [facility] GFR/1.73 sq M.predicted among non-blacks MDRD (S/P/Bld) [Vol rate/Area] 64 mL/min/{1.73_m2} - PINF [facility] [employer] Comment on above: Calculation based on the Chronic Kidney Disease Epidemiology Collaboration (CKD-EPI) equation refit without adjustment for race. Glucose [Mass/Vol] 93 mg/dL 70 - 99 mg/dL [facility] [employer] Potassium [Moles/Vol] 3.6 mmol/L 3.6 - 5.1 mmol/L [facility] Sodium [Moles/Vol] 138 mmol/L 136 - 145 mmol/L [facility] [employer] Urea nitrogen [Mass/Vol] 21 mg/dL High 8 - 20 mg/dL [facility] Urea nitrogen/Creatinine [Mass ratio] 17.8 mg/mg 12.0 - 20.0 [facility] [employer] Anion gap [Moles/Vol] 5 mmol/L Low 6-18 [facility] Comment on above: Performed By: #### 6 36-1 #### [facility] ([facility] [address] [place] [address] [facility] [address] [place] [place] [address] Calcium [Mass/Vol] 7.6 mg/dL Low 8.9-10.3 [facility] Comment on above: Performed By: #### 6 36-1 #### [facility] [address] [place] [address] [facility] [address] [place] [address] Chloride [Moles/Vol] 109 mmol/L High 98-107 [facility] Comment on above: Performed By: #### 6 36-1 #### [facility] ([facility]) LAB [address] [place] [address] [facility] [address] [place] [address] CO2 [Moles/Vol] 24 mmol/L Normal 22-32 [facility] Comment on above: Performed By: #### 6 36-1 #### [facility] ([facility]) LAB [address] [place] [address] [facility] [address] [place] [address] Creatinine [Mass/Vol] 1.18 mg/dL Normal 0.60-1.30 [facility] Comment on above: Performed By: #### 6 36-1 #### [facility] ([facility]) LAB [address] [place] [address] [facility] [address] [place] [address] GFR/1.73 sq M.predicted among non-blacks MDRD (S/P/Bld) [Vol rate/Area] 64 mL/min/{1.73_m2} Normal >=60 [facility] Comment on above: Result Comment: Calc ulation based on the?Chronic Kidney Disease Epidemiology Collaboration (CKD-EPI) equation refit?without adjustment for race. Performed By: #### 6 36-1 #### [facility] ([facility] LAB [address] [place] [address] [facility] [address] [place] [address] Glucose [Mass/Vol] 93 mg/dL Normal 70-99 [facility] Comment on above: Performed By: #### 6 36-1 #### [facility] [address] [place] [address] [facility] [address] [place] [address] Potassium [Moles/Vol] 3.6 mmol/L Normal 3.6-5.1 [facility] Comment on above: Performed By: #### 6 36-1 #### [facility] [address] [place] [address] [facility] [address] [facility] [place] [address] Sodium [Moles/Vol] 138 mmol/L Normal 136-145 [facility] Comment on above: Performed By: #### 6 36-1 #### [facility] [address] [place] [address] [facility] [address] [facility] [place] [address] Urea nitrogen [Mass/Vol] 21 mg/dL High 8-20 [facility] Comment on above: Performed By: #### 6 36-1 #### [facility] [address] [place] [address] [facility] [address] [place] [place] [address] Urea nitrogen/Creatinine [Mass ratio] 17.8 mg/mg Normal 12.0-20.0 [facility] Comment on above: Performed By: #### 6 36-1 #### [facility] [address] [place] [address] [facility] [address] [place] [address] Hemogram and platelets WO di fferential panel (Bld)on 01-08-2023 Basophils (Bld) [#/Vol] 0.01 10*3/uL [facility] Basophils/100 WBC (Bld) 0.1 % 0.0 - 2.0 % [facility] Eosinophils (Bld) [#/Vol] 0.08 10*3/uL [facility] Eosinophils/100 WBC (Bld) 1.2 % 0.0 - 7.0 % [facility] Erythrocyte distribution width (RBC) [Ratio] 13.5 % 11.0 - 14.8 % [facility] Hematocrit (Bld) [Volume fraction] 32.8 % Low 39.0 - 49.0 % [facility] Hemoglobin (Bld) [Mass/Vol] 10.5 g/dL Low 13.5 - 17.5 g/dL [facility] Immature granulocytes (Bld) [#/Vol] 0.03 10*3/uL [facility] Immature granulocytes/100 WBC (Bld) 0.4 % 0.0 - 1.2 % [facility] Lymphocytes (Bld) [#/Vol] 1.25 10*3/uL [facility] Lymphocytes/100 WBC (Bld) 18.7 % 17.9 - 49.6 % [facility] MCH (RBC) [Entitic mass] 30.5 pg [facility] MCHC (RBC) [Mass/Vol] 32.0 g/dL 30.8 - 35.3 g/dL [facility] MCV (RBC) [Entitic vol] 95.3 fL [facility] Monocytes (Bld) [#/Vol] 0.65 10*3/uL [facility] Monocytes/100 WBC (Bld) 9.7 % 0.0 - 12.0 % [facility] Neutrophils (Bld) [#/Vol] 4.65 10*3/uL [facility] Neutrophils/100 WBC (Bld) 69.9 % 38.1 - 75.5 % [facility] Platelet mean volume (Bld) [Entitic vol] 11.4 fL [facility] Platelets (Bld) [#/Vol] 142 10*3/uL [facility] RBC (Bld) [#/Vol] 3.44 10*6/uL Low [facility] WBC (Bld) [#/Vol] 6.7 10*3/uL [facility] Basophils (Bld) [#/Vol] 0.01 10*3/uL Normal 0.00-0.20 [facility] Comment on above: Performed By: #### 6 36-1 #### [facility] ([facility] LAB [address] [place] [address] [facility] [address] [facility] [place] [address] Basophils/100 WBC (Bld) 0.1 % Normal 0.0-2.0 [facility] Comment on above: Performed By: #### 6 36-1 #### [facility] ([facility] LAB [address] [place] [id number] [place] [address] [place] [address] [place] [address] Eosinophils (Bld) [#/Vol] 0.08 10*3/uL Normal 0.00-0.70 [facility] Comment on above: Performed By: #### 6 36-1 #### [facility] ([facility]) LAB [address] [place] [id number] [place] [address] [place], [place] [address] [address] Eosinophils/100 WBC (Bld) 1.2 % Normal 0.0-7.0 [facility] Comment on above: Performed By: #### 6 36-1 #### [facility] ([facility]) LAB [address] [place] [id number] [place] [address] [place], [place] [address] [address] Erythrocyte distribution width (RBC) [Ratio] 13.5 % Normal 11.0-14.8 [facility] Comment on above: Performed By: #### 6 36-1 #### [facility] ([facility] LAB [address] [place] [address] [facility] [place] [address] Hematocrit (Bld) [Volume fraction] 32.8 % Low 39.0-49.0 [facility] Comment on above: Performed By: #### 6 36-1 #### [facility] ([facility] LAB [address] [place] [address] [facility] [address] [facility] [place] [address] Hemoglobin (Bld) [Mass/Vol] 10.5 g/dL Low 13.5-17.5 [facility] Comment on above: Performed By: #### 6 36-1 #### [facility] ([facility] LAB [address] [place] [address] [facility] LAB [address] [place] [address] Immature granulocytes (Bld) [#/Vol] 0.03 10*3/uL Normal 0.00-0.10 [facility] Comment on above: Performed By: #### 6 36-1 #### [facility] ([facility] LAB [address] [place] [address] [facility] [place] [address] Immature granulocytes/100 WBC (Bld) 0.4 % Normal 0.0-1.2 [facility] Comment on above: Performed By: #### 6 36-1 #### [facility] ([facility] LAB [address] [place] [address] [facility] [address] [place] [address] Lymphocytes (Bld) [#/Vol] 1.25 10*3/uL Normal 1.00-4.80 [facility] Comment on above: Performed By: #### 6 36-1 #### [facility] ([facility] LAB [address] [place] [address] [facility] [place] [address] Lymphocytes/100 WBC (Bld) 18.7 % Normal 17.9-49.6 [facility] Comment on above: Performed By: #### 6 36-1 #### [facility] [address] [place] [address] [facility] [place] [address] MCH 30.5 pcg Normal 27.0-34.0 [facility] Comment on above: Performed By: #### 6 36-1 #### [facility] [address] [place] [address] [facility] [address] [place] [address] MCHC (RBC) [Mass/Vol] 32.0 g/dL Normal 30.8-35.3 [facility] Comment on above: Performed By: #### 6 36-1 #### [facility] [address] [place] [address] [facility] [address] [place] [address] [place] [address] MCV (RBC) [Entitic vol] 95.3 fL Normal 80.0-97.0 [facility] Comment on above: Performed By: #### 6 36-1 #### [facility] ([facility] LAB [address] [place] [address] [facility] [address] [place], [place] [address] [address] Monocytes (Bld) [#/Vol] 0.65 10*3/uL Normal 0.00-0.90 [facility] Comment on above: Performed By: #### 6 36-1 #### [facility] [address] [place] [address] [facility] [address] [place] [address] [place] [address] Monocytes/100 WBC (Bld) 9.7 % Normal 0.0-12.0 [facility] Comment on above: Performed By: #### 6 36-1 #### [facility] [address] [place] [address] [place] [address] [facility] [address] [place] [address] Neutrophils Absolute 4.65 K/mcL Normal 1.80-7.70 [facility] Comment on above: Performed By: #### 6 36-1 #### [facility] [address] [place] [address] [facility] [address] [place] [address] Neutrophils/100 WBC (Bld) 69.9 % Normal 38.1-75.5 [facility] Comment on above: Performed By: #### 6 36-1 #### [facility] [address] [place] [address] [facility] [place] [place] [address] Platelet mean volume (Bld) [Entitic vol] 11.4 fL Normal 6.2-12.1 [facility] Comment on above: Performed By: #### 6 36-1 #### [facility] [address] [place] [address] [facility] [place] [address] Platelets (Bld) [#/Vol] 142 10*3/uL Normal 142-424 [facility] Comment on above: Performed By: #### 6 36-1 #### [facility] [address] [place] [address] [facility] [place] [address] RBC (Bld) [#/Vol] 3.44 10*6/uL Low 4.30-5.70 [facility] Comment on above: Performed By: #### 6 36-1 #### [facility] [address] [place] [address] [facility] [place] [address] WBC (Bld) [#/Vol] 6.7 10*3/uL Normal 4.6-10.2 [facility] Comment on above: Performed By: #### 6 36-1 #### [facility] [address] [facility] [place] [address] [facility] [address] [place] [address] No Panel Informationon 01-08 Interpretation and review of laboratory results Abnormal [employer] V[facility] US ankle brachial i ndex (GEORGETTE)on 01-08-2023 Body surface area Derived from formula 2.17 m2 [facility] Left GEORGETTE 1.07 [facility] Left arm BP 165 mmHg [facility] Left Dorsalis Pedis 177 mmHg [facility] Left posterior tibial 171 mmHg [facility] Left TBI 0.68 [facility] Left toe pressure 112 mmHg [facility] Right GEORGETTE 0.94 [facility] Right Dorsalis Pedis 151 mmHg [facility] Right posterior tibial 155 mmHg [facility] Right TBI 0.65 [facility] Right toe pressure 108 mmHg [facility] Right: Ankle brachial index suggestive of normal arterial perfusion to the level of the ankle at rest. The PVR waveforms at the ankle and metatarsal level are mildly blunted. Abnormal toe brachial index of the right lower extremity. Left: Ankle brachial index suggestive of normal arterial perfusion to the level of the ankle at rest. The PVR waveforms at the ankle and metatarsal level are normal. Abnormal toe brachial index of the left lower extremity. Prior Study Prior procedure(s): CHEESE GRADER. Right GEORGETTE The ankle brachial index suggests no arterial occlusive disease. The toe brachial index is abnormal. Patient reports a history of arterial procedure to increase flow in his right leg approximately 4 months prior done in [place]. Left GEORGETTE The ankle brachial index suggests no arterial occlusive disease.The toe brachial index is abnormal. Right Lower Arterial Doppler The posterior tibial and dorsalis pedis arteries have monophasic flow. Ankle and foot pulse volume recording waveforms are mildly blunted. Toe photoplethysmography waveforms are normal. Left Lower Arterial Doppler The posterior tibial and dorsalis pedis arteries have triphasic flow. Ankle and foot pulse volume recording waveforms are normal. Toe photoplethysmography waveforms are normal. Tele[employer] Coordinator Details A doppler analysis ultrasound was performed. Pulsed wave doppler, pulsed volume recording (PVR) and photo plethysmography was performed. Overall the study quality was adequate. Unable to obtain right brachial pressure due to IV pump. CV PACS Vascular US duplex lower ext remity venous bilateralOrdered By: Lance Martin on 01-08-2023 Body surface area Derived from formula 2.17 m2 [employer] Phone: Vascular US duplex lower ext remity venous bilateralon 01-08-2023 Right: No evidence of deep vein thrombosis in the right lower extremity. No evidence of superficial venous thrombosis in the right lower extremity. Several prominent lymph nodes in the right groin with the largest measuring 2.31 x 1.29 x 1.32 cm. Left: No evidence of deep vein thrombosis in the left lower extremity. No evidence of superficial venous thrombosis in the left lower extremity. Enlarged lymph node in the left groin measuring 5.41 x 1.42 x 0.83 cm. Prior Study Prior procedure(s): CHEESE GRADER. Right Lower Venous Several prominent lymph nodes in the right groin with the largest measuring 2.31 x 1.29 x 1.32 cm. No evidence of deep vein thrombosis in the common femoral, deep femoral, femoral and popliteal veins of the right leg. The vessels showed compressibility. Interrogation showed phasic and spontaneous Doppler signals. No evidence of deep vein thrombosis in the posterior tibial, peroneal and gastrocnemius veins of the right leg. The vessels showed compressibility. No evidence of superficial thrombophlebitis in the great saphenous and small saphenous veins of the right leg. The vessels showed compressibility. Left Lower Venous Enlarged lymph node in the left groin measuring 5.41 x 1.42 x 0.83 cm. No evidence of deep vein thrombosis in the common femoral, deep femoral, femoral and popliteal veins of the left leg. The vessels showed compressibility. Interrogation showed phasic and spontaneous Doppler signals. No evidence of deep vein thrombosis in the posterior tibial, peroneal and gastrocnemius veins of the left leg. The vessels showed compressibility. No evidence of superficial thrombophlebitis in the great saphenous and small saphenous veins of the left leg. The vessels showed compressibility. Telecom Coordinator Details A mosley scale, color and doppler analysis ultrasound was performed. During the study longitudinal and transverse views were obtained. Pulsed wave doppler was performed. Overall the study quality was adequate. Study was technically difficult due to: diffuse subcutaneous edema. CV PACS Arthrocentesison 01-07-2023 Jamal Dan MD 01/07/2023 1:45 AM Arthrocentesis Date/Time: 01/07/2023 1:44 AM Performed by: Jamal Dan MD Authorized by: Jamal Dan MD Consent: Consent obtained: Verbal Consent given by: Patient Risks discussed: Bleeding, incomplete drainage, infection, nerve damage and pain Alternatives discussed: No treatment [place] protocol: Patient identity confirmed: Verbally with patient Location: Location: Knee Knee: R knee Anesthesia: Anesthesia method: Local infiltration Local anesthetic: Lidocaine 1% w/o epi Procedure details: Preparation: Patient was prepped and draped in usual sterile fashion Needle gauge: 18 G Ultrasound guidance: no Approach: Lateral Aspirate amount: 10 Aspirate characteristics: Clear Steroid injected: no Specimen collected: yes Post-procedure details: Dressing: Adhesive bandage Procedure completion: Tolerated well, no immediate complications [employer] Basic metabolic 2000 panelon 01-07-2023 Anion gap [Moles/Vol] 8 mmol/L 6 - 18 [employer] Calcium [Mass/Vol] 7.9 mg/dL Low 8.9 - 10. 3 mg/dL [facility] Chloride [Moles/Vol] 106 mmol/L 98 - 10 7 mmol/L [facility] CO2 [Moles/Vol] 25 mmol/L 22 - 32 mmol/L [facility] Creatinine [Mass/Vol] 1.79 mg/dL High 0.60 - 1.30 mg/dL [facility] GFR/1.73 sq M.predicted among non-blacks MDRD (S/P/Bld) [Vol rate/Area] 39 mL/min/{1.73_m2} Low - PINF [facility] Comment on above: Calculation based on the Chronic Kidney Disease Epidemiology Collaboration (CKD-EPI) equation refit without adjustment for race. Glucose [Mass/Vol] 146 mg/dL High 70 - 99 mg/dL [employer] Interpretation and review of laboratory results Abnormal [facility] Potassium [Moles/Vol] 3.7 mmol/L 3.6 - 5.1 mmol/L [facility] Sodium [Moles/Vol] 139 mmol/L 136 - 145 mmol/L [facility] Urea nitrogen [Mass/Vol] 29 mg/dL High 8 - 20 mg/dL [facility] Urea nitrogen/Creatinine [Mass ratio] 16.2 mg/mg 12.0 - 20.0 [facility] Anion gap [Moles/Vol] 8 mmol/L Normal 6-18 [facility] Comment on above: Performed By: #### 2 4321-2 ####[facility] [id number] [place] [address] Calcium [Mass/Vol] 7.9 mg/dL Low 8.9-10.3 [facility] Comment on above: Performed By: #### 2 4321-2 ####[facility] [id number] [place] [address] Chloride [Moles/Vol] 106 mmol/L Normal 98-107 [facility] Comment on above: Performed By: #### 2 4321-2 ####[facility] [id number] [place] [address] CO2 [Moles/Vol] 25 mmol/L Normal 22-32 [facility] Comment on above: Performed By: #### 2 4321-2 ####[facility] [id number] [place] [address] Creatinine [Mass/Vol] 1.79 mg/dL High 0.60-1.30 [facility] Comment on above: Performed By: #### 2 4321-2 ####[facility] [id number] [place] [address] GFR/1.73 sq M.predicted among non-blacks MDRD (S/P/Bld) [Vol rate/Area] 39 mL/min/{1.73_m2} Low >=60 [facility] Comment on above: Result Comment: Calc ulation based on the?Chronic Kidney Disease Epidemiology Collaboration (CKD-EPI) equation refit?without adjustment for race. Performed By: #### 2 4321-2 ####[facility] [id number] [place] [address] Glucose [Mass/Vol] 146 mg/dL High 70-99 [facility] Comment on above: Performed By: #### 2 4321-2 ####[facility] [id number] [place] [address] Potassium [Moles/Vol] 3.7 mmol/L Normal 3.6-5.1 [facility] Comment on above: Performed By: #### 2 4321-2 ####[facility] [id number] [place] [address] Sodium [Moles/Vol] 139 mmol/L Normal 136-145 [facility] Comment on above: Performed By: #### 2 4321-2 ####[facility] [id number] [place] [address] Urea nitrogen [Mass/Vol] 29 mg/dL High 8-20 [facility] Comment on above: Performed By: #### 2 4321-2 ####[facility] [id number] [place] [address] 15209 Urea nitrogen/Creatinine [Mass ratio] 16.2 mg/mg Normal 12.0-20.0 [facility] Comment on above: Performed By: #### 2 4321-2 ####[facility] [id number] [place] [address]994 Cell count panel (Body fld)O rdered By: Miguelina Vogel on 01-07-2023 Clarity (Body fld) [employer]y [employer] Comment on above: Some small clots pre sent, very viscous. Clots present in specimen. Count may be affected. Color (Body fld) Yellow [facility] RBC Auto (Body fld) [#/Vol] 430 /mm3 [facility] Comment on above: The reference range and other method performance specifications have not been established for this fluid specimen. The test result should be integrated into the clinical context for interpretation. Specimen source Nom (Body fld) Knee [facility] Comment on above: Right WBC (Body fld) [#/Vol] 32 /mm3 [facility] Comment on above: The reference range and other method performance specifications have not been established for this fluid specimen. The test result should be integrated into the clinical context for interpretation. [facility] Crystals LM Nom (Body fld)on 01-07-2023 Crystals LM Nom (Syn fld) Absent Absent [facility] Interpretation and review of laboratory results Normal [employer] Differential panel (Body fld )on 01-07-2023 Lymphocytes/100 WBC Manual cnt (Body fld) 19.0 % [facility] Mesothelial cells/100 WBC Manual cnt (Body fld) 2.0 % [facility] Monocytes+Macrophages/ 100 WBC (Body fld) 72.0 % [facility] Neutrophils/100 WBC (Body fld) 7.0 % [employer] Glucose, body fluidon 2022 Glucose (Body fld) [Mass/Vol] 134 mg/dL [facility] Hemogram and platelets WO di fferential panel (Bld)on 01-07-2023 Basophils (Bld) [#/Vol] 0.01 10*3/uL [facility] Basophils/100 WBC (Bld) 0.1 % 0.0 - 2.0 % [facility] Eosinophils (Bld) [#/Vol] 0.04 10*3/uL [facility] Eosinophils/100 WBC (Bld) 0.5 % 0.0 - 7.0 % [facility] Erythrocyte distribution width (RBC) [Ratio] 13.6 % 11.0 - 14.8 % [facility] Hematocrit (Bld) [Volume fraction] 34.7 % Low 39.0 - 49.0 % [facility] Hemoglobin (Bld) [Mass/Vol] 11.1 g/dL Low 13.5 - 17.5 g/dL [facility] Immature granulocytes (Bld) [#/Vol] 0.02 10*3/uL [facility] Immature granulocytes/100 WBC (Bld) 0.3 % 0.0 - 1.2 % [facility] Interpretation and review of laboratory results Abnormal [facility] Lymphocytes (Bld) [#/Vol] 1.70 10*3/uL [facility] Lymphocytes/100 WBC (Bld) 23.3 % 17.9 - 49.6 % [facility] MCH (RBC) [Entitic mass] 30.4 pg [facility] MCHC (RBC) [Mass/Vol] 32.0 g/dL 30.8 - 35.3 g/dL [facility] MCV (RBC) [Entitic vol] 95.1 fL [facility] Monocytes (Bld) [#/Vol] 0.66 10*3/uL [facility] Monocytes/100 WBC (Bld) 9.0 % 0.0 - 12.0 % [facility] Neutrophils (Bld) [#/Vol] 4.88 10*3/uL [facility] Neutrophils/100 WBC (Bld) 66.8 % 38.1 - 75.5 % [facility] Platelet mean volume (Bld) [Entitic vol] 11.1 fL [facility] Platelets (Bld) [#/Vol] 127 10*3/uL Low [facility] RBC (Bld) [#/Vol] 3.65 10*6/uL Low [facility] WBC (Bld) [#/Vol] 7.3 10*3/uL [facility] Basophils (Bld) [#/Vol] 0.01 10*3/uL Normal 0.00-0.20 [facility] Comment on above: Performed By: #### 6 36-1 #### [facility] ([facility]) LAB [address] [place] [address] [facility] [place] [address] Basophils/100 WBC (Bld) 0.1 % Normal 0.0-2.0 [facility] Comment on above: Performed By: #### 6 36-1 #### [facility] [address] [place] [address] [facility] [place] [address] Eosinophils (Bld) [#/Vol] 0.04 10*3/uL Normal 0.00-0.70 [facility] Comment on above: Performed By: #### 6 36-1 #### [facility] ([facility]) LAB [address] [place] [address] [facility] [place] [address] Eosinophils/100 WBC (Bld) 0.5 % Normal 0.0-7.0 [facility] Comment on above: Performed By: #### 6 36-1 #### [facility] ([facility]) LAB [address] [place] [address] [facility] [address] [place], [place] [address] [address] Erythrocyte distribution width (RBC) [Ratio] 13.6 % Normal 11.0-14.8 [facility] Comment on above: Performed By: #### 6 36-1 #### [facility] ([facility]) LAB [address] [place] [id number] [place] [address] [place], [place] [address] [address] Hematocrit (Bld) [Volume fraction] 34.7 % Low 39.0-49.0 [facility] Comment on above: Performed By: #### 6 36-1 #### [facility] ([facility]) LAB [address] [place] [id number] [place] [address] [place] [address] [place] [address] Hemoglobin (Bld) [Mass/Vol] 11.1 g/dL Low 13.5-17.5 [facility] Comment on above: Performed By: #### 6 36-1 #### [facility] ([facility]) LAB [address] [place] [address] [facility] [address] [place], [place] [address] [address] Immature granulocytes (Bld) [#/Vol] 0.02 10*3/uL Normal 0.00-0.10 [facility] Comment on above: Performed By: #### 6 36-1 #### [facility] ([facility] LAB [address] [place] [id number] [place] [address] [place] [address] [place] [address] Immature granulocytes/100 WBC (Bld) 0.3 % Normal 0.0-1.2 [facility] Comment on above: Performed By: #### 6 36-1 #### [facility] [address] [place] [address] [facility] [place] [address] Lymphocytes (Bld) [#/Vol] 1.70 10*3/uL Normal 1.00-4.80 [facility] Comment on above: Performed By: #### 6 36-1 #### [facility] [address] [place] [address] [facility] [address] [place] [address] [place] [address] Lymphocytes/100 WBC (Bld) 23.3 % Normal 17.9-49.6 [facility] Comment on above: Performed By: #### 6 36-1 #### [facility] [address] [place] [address] [facility] [address] [place] [address] [place] [address] MCH 30.4 pcg Normal 27.0-34.0 [facility] Comment on above: Performed By: #### 6 36-1 #### [facility] [address] [place] [address] [facility] [place] [address] MCHC (RBC) [Mass/Vol] 32.0 g/dL Normal 30.8-35.3 [facility] Comment on above: Performed By: #### 6 36-1 #### [facility] [address] [place] [address] [facility] [address] [place] [address] [place] [address] MCV (RBC) [Entitic vol] 95.1 fL Normal 80.0-97.0 [facility] Comment on above: Performed By: #### 6 36-1 #### [facility] ([facility] LAB [address] [place] [address] [facility] [address] [place] [address] Monocytes (Bld) [#/Vol] 0.66 10*3/uL Normal 0.00-0.90 [facility] Comment on above: Performed By: #### 6 36-1 #### [facility] ([facility]) LAB [address] [place] [address] [facility] [address] [place] [address] Monocytes/100 WBC (Bld) 9.0 % Normal 0.0-12.0 [facility] Comment on above: Performed By: #### 6 36-1 #### [facility] ([facility]) LAB [address] [place] [id number] [place] [address] [place] [address] Neutrophils Absolute 4.88 K/mcL Normal 1.80-7.70 [facility] Comment on above: Performed By: #### 6 36-1 #### [facility] ([facility]) LAB [address] [place] [id number] [place] [address] [place] [address] Neutrophils/100 WBC (Bld) 66.8 % Normal 38.1-75.5 [facility] Comment on above: Performed By: #### 6 36-1 #### [facility] ([facility]) LAB [address] [place] [id number] [place] [address] [place] [address] Platelet mean volume (Bld) [Entitic vol] 11.1 fL Normal 6.2-12.1 [facility] Comment on above: Performed By: #### 6 36-1 #### [facility] [place] [facility] [address] [place] [address] [facility] [address] [place] [address] Platelets (Bld) [#/Vol] 127 10*3/uL Low 142-424 [facility] Comment on above: Performed By: #### 6 36-1 #### [facility] [place] [facility] [address] [place] [id number] [place] [address] [address] [place] [address] RBC (Bld) [#/Vol] 3.65 10*6/uL Low 4.30-5.70 [facility] Comment on above: Performed By: #### 6 36-1 #### [facility] [address] [place] [address] [facility] [address] [place] [address] WBC (Bld) [#/Vol] 7.3 10*3/uL Normal 4.6-10.2 [facility] Comment on above: Performed By: #### 6 36-1 #### [facility] [address] [place] [address] [facility] [place] [address] MR FOOT WO AND W CONTRAST JOLENE Dodson 01-07-2023 MR FOOT WO AND W CONTRAST RIGHT MRI OF THE RIGHT FOOT WITHOUT AND WITH CONTRAST: 01/07/2023 8:50 AM COMPARISON: Plain radiographs of the right foot 01/06/2023 HISTORY: Wound within the right foot near the lateral aspect of the fifth metatarsal head. Fever and chills. Concern for osteomyelitis. TECHNIQUE: Multiplanar multisequence MR imaging of the right foot was performed prior to and following the administration of 20 mL of intravenous Dotarem contrast. FINDINGS: As identified on the preceding radiographs, there is a wound within the lateral aspect of the forefoot near the fifth metatarsal head, measuring approximately 1 cm in diameter. There is significant bone marrow edema and enhancement within the fifth metatarsal head. Some demineralization is noted in this region on the preceding radiographs. These findings are consistent with osteomyelitis. No abscess is identified in this region. There is mild degenerative arthritis involving the first MTP joint and the articulation between the first metatarsal head and medial hallux sesamoid, with reactive osseous edema. There is mild bunion deformity of the first metatarsal head, as well. The flexor and extensor tendons of the midfoot and forefoot are normal in thickness and signal. There is no jennifer tenosynovitis. The Lisfranc ligament is intact. Visualized portions of the plantar fascia are normal in thickness and signal. There is diffuse atrophy and edema of the visualized muscles, presumably reflecting denervation change related to peripheral neuropathy. There is diffuse subcutaneous edema within visualized portions of the foot, most pronounced dorsally. IMPRESSION: 1. Wound lying immediately lateral to the fifth metatarsal head with associated mild osteomyelitis involving the fifth metatarsal head. No abscess. No findings of septic arthritis involving the fifth MTP joint. 2. Significant subcutaneous edema within the foot, most mass dorsally. A large component edema likely reflects lymphedema, though I suspect that there is also a component of cellulitis within the lateral forefoot. 3. 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 4. Diffuse atrophy and edema of the intrinsic muscles of the foot, most likely reflecting denervation change related to peripheral neuropathy. -------- FINAL REPORT -------- Dictated By: Polo Casanova Dictated Date: 01/07/2023 09:44 Assigned Physician: Polo Casanova Reviewed and Electronically Signed By: Polo Casanova Signed Date: 01/07/2023 09:56 Workstation ID: [id number] Transcribed By: Self Edit Transcribed Date: 01/07/2023 09:44 Normal [facility] MR Foot wo and w Contrast Jolene sánchezphyllis 01-07-2023 1. Wound lying immediately lateral to the fifth metatarsal head with associated mild osteomyelitis involving the fifth metatarsal head. No abscess. No findings of septic arthritis involving the fifth MTP joint. 2. Significant subcutaneous edema within the foot, most mass dorsally. A large component edema likely reflects lymphedema, though I suspect that there is also a component of cellulitis within the lateral forefoot. 3. 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 4. Diffuse atrophy and edema of the intrinsic muscles of the foot, most likely reflecting denervation change related to peripheral neuropathy. -------- FINAL REPORT -------- Dictated By: Polo Casanova Dictated Date: 01/07/2023 09:44 Assigned Physician: Polo Casanova Reviewed and Electronically Signed By: Polo Casanova Signed Date: 01/07/2023 09:56 Workstation ID: [id number] Transcribed By: Self Edit Transcribed Date: 01/07/2023 09:44 [facility] MRI OF THE RIGHT AGUSTIN T WITHOUT AND WITH CONTRAST: 01/07/2023 8:50 AM COMPARISON: Plain radiographs of the right foot 01/06/2023 HISTORY: Wound within the right foot near the lateral aspect of the fifth metatarsal head. Fever and chills. Concern for osteomyelitis. TECHNIQUE: Multiplanar multisequence MR imaging of the right foot was performed prior to and following the administration of 20 mL of intravenous Dotarem contrast. FINDINGS: As identified on the preceding radiographs, there is a wound within the lateral aspect of the forefoot near the fifth metatarsal head, measuring approximately 1 cm in diameter. There is significant bone marrow edema and enhancement within the fifth metatarsal head. Some demineralization is noted in this region on the preceding radiographs. These findings are consistent with osteomyelitis. No abscess is identified in this region. There is mild degenerative arthritis involving the first MTP joint and the articulation between the first metatarsal head and medial hallux sesamoid, with reactive osseous edema. There is mild bunion deformity of the first metatarsal head, as well. The flexor and extensor tendons of the midfoot and forefoot are normal in thickness and signal. There is no jennifer tenosynovitis. The Lisfranc ligament is intact. Visualized portions of the plantar fascia are normal in thickness and signal. There is diffuse atrophy and edema of the visualized muscles, presumably reflecting denervation change related to peripheral neuropathy. There is diffuse subcutaneous edema within visualized portions of the foot, most pronounced dorsally. [facility] Polo Casanova MD - 01/07/2023 MRI OF THE RIGHT FOOT WITHOUT AND WITH CONTRAST: 01/07/2023 8:50 AM COMPARISON: Plain radiographs of the right foot 01/06/2023 HISTORY: Wound within the right foot near the lateral aspect of the fifth metatarsal head. Fever and chills. Concern for osteomyelitis. TECHNIQUE: Multiplanar multisequence MR imaging of the right foot was performed prior to and following the administration of 20 mL of intravenous Dotarem contrast. FINDINGS: As identified on the preceding radiographs, there is a wound within the lateral aspect of the forefoot near the fifth metatarsal head, measuring approximately 1 cm in diameter. There is significant bone marrow edema and enhancement within the fifth metatarsal head. Some demineralization is noted in this region on the preceding radiographs. These findings are consistent with osteomyelitis. No abscess is identified in this region. There is mild degenerative arthritis involving the first MTP joint and the articulation between the first metatarsal head and medial hallux sesamoid, with reactive osseous edema. There is mild bunion deformity of the first metatarsal head, as well. The flexor and extensor tendons of the midfoot and forefoot are normal in thickness and signal. There is no jennifer tenosynovitis. The Lisfranc ligament is intact. Visualized portions of the plantar fascia are normal in thickness and signal. There is diffuse atrophy and edema of the visualized muscles, presumably reflecting denervation change related to peripheral neuropathy. There is diffuse subcutaneous edema within visualized portions of the foot, most pronounced dorsally. IMPRESSION: 1. Wound lying immediately lateral to the fifth metatarsal head with associated mild osteomyelitis involving the fifth metatarsal head. No abscess. No findings of septic arthritis involving the fifth MTP joint. 2. Significant subcutaneous edema within the foot, most mass dorsally. A large component edema likely reflects lymphedema, though I suspect that there is also a component of cellulitis within the lateral forefoot. 3. 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 4. Diffuse atrophy and edema of the intrinsic muscles of the foot, most likely reflecting denervation change related to peripheral neuropathy. -------- FINAL REPORT -------- Dictated By: Polo Casanova Dictated Date: 01/07/2023 09:44 Assigned Physician: Polo Casnaova Reviewed and Electronically Signed By: Polo Casanova Signed Date: 01/07/2023 09:56 Workstation ID: [id number] Transcribed By: Self Edit Transcribed Date: 01/07/2023 09:44 [facility] Radiology Study observation (narrative) [facility] MR Marlen peraza and w Contrast Ri ghtOrdered By: Polo Casanova on 01-07-2023 [employer] Work Phone: No Panel Informationon 01-07 [facility] Protein, body fluidon 2022 Protein (Body fld) [Mass/Vol] g/dL g/dL [facility] VAS US ANKLE BRACHIAL INDEXo n 01-07-2023 VAS US ANKLE BRACHIAL INDEX This is a summary report. The complete report is available in the patient's medical record. If you cannot access the medical record, please contact the sending organization for a detailed fax or copy. Right: Ankle brachial index suggestive of normal arterial perfusion to the level of the ankle at rest. The PVR waveforms at the ankle and metatarsal level are mildly blunted. Abnormal toe brachial index of the right lower extremity. Left: Ankle brachial index suggestive of normal arterial perfusion to the level of the ankle at rest. The PVR waveforms at the ankle and metatarsal level are normal. Abnormal toe brachial index of the left lower extremity. 151 155 177 171 165 108 112 1.07 0.94 0.68 0.65 2.17 Normal [facility] Bacteria Bld Culton 01-07-20 23 Bacteria identified Cx Nom (Bld) Culture, Blood Status = F No growth at 5 days Normal [facility] Comment on above: Performed By: #### 6 00-7 #### [facility] [address] [place] [address] Bacteria identified Cx Nom (Bld) Culture, Blood Status = F No growth at 5 days Normal [facility] Comment on above: Performed By: #### 6 00-7 #### [facility] [address] [place] [address] Bacteria Spec BFld Culton Bacteria identified Sterile body fluid culture Nom (Unsp spec) Fluid Culture Status = F No growth at 2 days Gram Stain Result Status = F Few Polymorphonuclear leukocytes No Epithelial cells No organisms seen Normal [facility] Comment on above: Performed By: #### 6 36-1 #### [facility] ([facility] LAB [address] [place] [address] [facility] [address] [place] [address] Basic metabolic 2000 panelon 01-06-2023 Anion gap [Moles/Vol] 7 mmol/L 6 - 18 [employer] Calcium [Mass/Vol] 8.6 mg/dL Low 8.9 - 10. 3 mg/dL [facility] Chloride [Moles/Vol] 100 mmol/L 98 - 10 7 mmol/L [facility] CO2 [Moles/Vol] 27 mmol/L 22 - 32 mmol/L [facility] Creatinine [Mass/Vol] 1.26 mg/dL 0.60 - 1.30 mg/dL [facility] GFR/1.73 sq M.predicted among non-blacks MDRD (S/P/Bld) [Vol rate/Area] 59 mL/min/{1.73_m2} Low - PINF [facility] Comment on above: Calculation based on the Chronic Kidney Disease Epidemiology Collaboration (CKD-EPI) equation refit without adjustment for race. Glucose [Mass/Vol] 115 mg/dL High 70 - 99 mg/dL [employer] Interpretation and review of laboratory results Abnormal [facility] Potassium [Moles/Vol] 4.1 mmol/L 3.6 - 5.1 mmol/L [facility] Sodium [Moles/Vol] 134 mmol/L Low 136 - 145 mmol/L [facility] Urea nitrogen [Mass/Vol] 17 mg/dL 8 - 20 mg/dL [facility] Urea nitrogen/Creatinine [Mass ratio] 13.5 mg/mg 12.0 - 20.0 [employer] C-Reactive Protein 32.6 mg/dL High 0.0-1.0 [facility] Comment on above: Performed By: #### 2 4321-2 ####[facility] ([facility] [id number] [place] [address] C-reactive proteinon 023 CRP [Mass/Vol] 32.6 mg/dL High 0.0 - 1.0 mg/dL [facility] CRP [Mass/Vol]on 01-06-2023 Interpretation and review of laboratory results Abnormal [facility] Cell count panel (Body fld)o n 01-06-2023 Fluid Lymphocytes 19.0 % Normal [facility] Comment on above: Performed By: #### 6 00-7 #### [facility] [place] [facility] [address] [place] [address] Fluid Mesothelial Cells 2.0 % Normal [facility] Comment on above: Performed By: #### 6 00-7 #### [facility] [place] [facility] [address] [place] [address] Fluid Monocytes/Macrophages 72.0 % Normal [facility] Comment on above: Performed By: #### 6 00-7 #### [facility] [place] [facility] [address] [place] [address] Fluid Neutrophils 7.0 % Normal [facility] Comment on above: Performed By: #### 6 00-7 #### [facility] [place] [facility] [address] [place] [address] Crystals LM Nom (Body fld)on 01-06-2023 Crystals, Fluid Absent Normal Absent [facility] Comment on above: Performed By: #### 6 825-4 ####[facility] [id number] [place] [address] ESR (Bld) [Velocity]on 01-06 Interpretation and review of laboratory results Abnormal [facility] Glucose (Body fld) [Mass/Vol ]on 01-06-2023 Protein, Fluid <3.[address] [facility] Comment on above: Performed By: #### 2 344-0 ####[facility] [id number] [place] [address] Hemogram and platelets WO di fferential panel (Bld)on 01-06-2023 Basophils (Bld) [#/Vol] 0.01 10*3/uL [facility] Basophils/100 WBC (Bld) 0.1 % 0.0 - 2.0 % [facility] Eosinophils (Bld) [#/Vol] 0.01 10*3/uL [facility] Eosinophils/100 WBC (Bld) 0.1 % 0.0 - 7.0 % [facility] Erythrocyte distribution width (RBC) [Ratio] 13.5 % 11.0 - 14.8 % [facility] Hematocrit (Bld) [Volume fraction] 39.6 % 39.0 - 49.0 % [facility] Hemoglobin (Bld) [Mass/Vol] 12.9 g/dL Low 13.5 - 17.5 g/dL [facility] Immature granulocytes (Bld) [#/Vol] 0.04 10*3/uL [facility] Immature granulocytes/100 WBC (Bld) 0.4 % 0.0 - 1.2 % [facility] Interpretation and review of laboratory results Abnormal [facility] Lymphocytes (Bld) [#/Vol] 1.55 10*3/uL [facility] Lymphocytes/100 WBC (Bld) 13.6 % Low 17.9 - 49.6 % [facility] MCH (RBC) [Entitic mass] 30.1 pg [facility] MCHC (RBC) [Mass/Vol] 32.6 g/dL 30.8 - 35.3 g/dL [facility] MCV (RBC) [Entitic vol] 92.5 fL [facility] Monocytes (Bld) [#/Vol] 0.93 10*3/uL High [facility] Monocytes/100 WBC (Bld) 8.2 % 0.0 - 12.0 % [facility] Neutrophils (Bld) [#/Vol] 8.82 10*3/uL High [facility] Neutrophils/100 WBC (Bld) 77.6 % High 38.1 - 75.5 % [facility] Platelet mean volume (Bld) [Entitic vol] 10.7 fL [facility] Platelets (Bld) [#/Vol] 173 10*3/uL [facility] RBC (Bld) [#/Vol] 4.28 10*6/uL Low [facility] WBC (Bld) [#/Vol] 11.4 10*3/uL High [facility] Sed Rate 104 mm/hr High 0-15 [facility] Comment on above: Performed By: #### 6 00-7 #### [facility] [address] [place] [address] Lactate (Bld) [Mass/Vol]on 03-08-2022 Interpretation and review of laboratory results Normal [facility] Lactate [Moles/Vol] 1.1 mmol/L 0.5 - 2. 0 mmol/L [facility] Lactate [Moles/Vol] 1.1 mmol/L Normal 0.5-2.0 [facility] Comment on above: Performed By: #### 6 36-1 #### [facility] [address] [place] [address] [facility] [address] [place] [address] Sedimentation Rate, Automate don 01-06-2023 ESR (Bld) [Velocity] 104 mm/h [facility] VAS US DUPLEX LOWER EXT VENO US BILATon 01-06-2023 VAS US DUPLEX LOWER EXT VENOUS BILAT This is a summary report. The complete report is available in the patient's medical record. If you cannot access the medical record, please contact the sending organization for a detailed fax or copy. Right: No evidence of deep vein thrombosis in the right lower extremity. No evidence of superficial venous thrombosis in the right lower extremity. Several prominent lymph nodes in the right groin with the largest measuring 2.31 x 1.29 x 1.32 cm. Left: No evidence of deep vein thrombosis in the left lower extremity. No evidence of superficial venous thrombosis in the left lower extremity. Enlarged lymph node in the left groin measuring 5.41 x 1.42 x 0.83 cm. 2.17 Normal [facility] XR FOOT 3+ VIEWS RIGHTon XR FOOT 3+ VIEWS RIGHT EXAMINATION TYPE: XR FOOT 3+ VIEWS RIGHT DATE OF EXAM: 01/06/2023 7:50 PM HISTORY: worsening chronic lateral foot wound/infection COMPARISON: NONE FINDINGS: No acute fracture. No joint dislocation. Mild degenerative changes at the 1st MTP joint. Small plantar calcaneal enthesophyte. There is a soft tissue ulceration along the lateral foot adjacent to the 5th metatarsal head. No discrete adjacent bone erosions or periosteal reaction. Mild generalized soft tissue swelling in the forefoot. IMPRESSION: Soft tissue ulceration adjacent to the 5th metatarsal head. Soft tissue swelling in the forefoot, suggesting cellulitis No radiographic findings of acute osteomyelitis. MRI could further evaluate if there is high clinical suspicion. No acute fracture. Mild 1st MTP joint degenerative changes. -------- FINAL REPORT -------- Dictated By: Madhu Blackwell Dictated Date: 01/06/2023 20:07 Assigned Physician: Madhu Blackwell Reviewed and Electronically Signed By: Madhu Blackwell Signed Date: 01/06/2023 20:09 Workstation ID: [id number] Transcribed By: Self Edit Transcribed Date: 01/06/2023 20:07 Normal [facility] XR Foot 3+ Views Righton Soft tissue ulcerati on adjacent to the 5th metatarsal head. Soft tissue swelling in the forefoot, suggesting cellulitis No radiographic findings of acute osteomyelitis. MRI could further evaluate if there is high clinical suspicion. No acute fracture. Mild 1st MTP joint degenerative changes. -------- FINAL REPORT -------- Dictated By: Madhu Blackwell Dictated Date: 01/06/2023 20:07 Assigned Physician: Madhu Blackwell Reviewed and Electronically Signed By: Madhu Blackwell Signed Date: 01/06/2023 20:09 Workstation ID: [id number] Transcribed By: Self Edit Transcribed Date: 01/06/2023 20:07 [facility] EXAMINATION TYPE: XR FOOT 3+ VIEWS RIGHT DATE OF EXAM: 01/06/2023 7:50 PM HISTORY: worsening chronic lateral foot wound/infection COMPARISON: NONE FINDINGS: No acute fracture. No joint dislocation. Mild degenerative changes at the 1st MTP joint. Small plantar calcaneal enthesophyte. There is a soft tissue ulceration along the lateral foot adjacent to the 5th metatarsal head. No discrete adjacent bone erosions or periosteal reaction. Mild generalized soft tissue swelling in the forefoot. Madhu Haynes MD - 01/06/2023 EXAMINATION TYPE: XR FOOT 3+ VIEWS RIGHT DATE OF EXAM: 01/06/2023 7:50 PM HISTORY: worsening chronic lateral foot wound/infection COMPARISON: NONE FINDINGS: No acute fracture. No joint dislocation. Mild degenerative changes at the 1st MTP joint. Small plantar calcaneal enthesophyte. There is a soft tissue ulceration along the lateral foot adjacent to the 5th metatarsal head. No discrete adjacent bone erosions or periosteal reaction. Mild generalized soft tissue swelling in the forefoot. IMPRESSION: Soft tissue ulceration adjacent to the 5th metatarsal head. Soft tissue swelling in the forefoot, suggesting cellulitis No radiographic findings of acute osteomyelitis. MRI could further evaluate if there is high clinical suspicion. No acute fracture. Mild 1st MTP joint degenerative changes. -------- FINAL REPORT -------- Dictated By: Madhu Blackwell Dictated Date: 01/06/2023 20:07 Assigned Physician: Madhu Blackwell Reviewed and Electronically Signed By: Madhu Blackwell Signed Date: 01/06/2023 20:09 Workstation ID: [id number] Transcribed By: Self Edit Transcribed Date: 01/06/2023 20:07 [facility] Radiology Study observation (narrative) [facility] XR Foot 3+ Views RightOrdere d By: Madhu Blackwell on 01-06-2023 [facility] Work Phone: XR KNEE 4+ VIEWS RIGHTon XR KNEE 4+ VIEWS RIGHT EXAMINATION TYPE: XR KNEE 4+ VIEWS RIGHT DATE OF EXAM: 01/06/2023 9:05 PM COMPARISON: Prior day HISTORY: effusion, pain, fever FINDINGS: Negative for erosion of the joint space or periosteal reaction. Trace suprapatellar joint fluid. Fabella. Negative for fracture or dislocation. CT or MRI could further assess the knee if deemed appropriate. Soft tissue swelling can be better assessed with physical exam and correlated with the prior study. IMPRESSION: Negative for erosion of the joint space or periosteal reaction. Trace suprapatellar joint fluid. Fabella. Atherosclerotic vascular calcifications are noted. Negative for fracture or dislocation. Soft tissue swelling can be better assessed with physical exam and correlated with the prior study. CT or MRI could further assess the knee if deemed appropriate particularly if there is concern for soft tissue infection. -------- FINAL REPORT -------- Dictated By: Reyes Dixon Dictated Date: 01/06/2023 21:40 Assigned Physician: Reyes Dixon Reviewed and Electronically Signed By: Reyes Dixon Signed Date: 01/06/2023 21:44 Workstation ID: [id number] Transcribed By: Self Edit Transcribed Date: 01/06/2023 21:40 Normal [facility] XR Knee 4+ Views Righton Negative for erosion of the joint space or periosteal reaction. Trace suprapatellar joint fluid. Fabella. Atherosclerotic vascular calcifications are noted. Negative for fracture or dislocation. Soft tissue swelling can be better assessed with physical exam and correlated with the prior study. CT or MRI could further assess the knee if deemed appropriate particularly if there is concern for soft tissue infection. -------- FINAL REPORT -------- Dictated By: Reyes Dixon Dictated Date: 01/06/2023 21:40 Assigned Physician: Reyes Dixon Reviewed and Electronically Signed By: Reyes Dixon Signed Date: 01/06/2023 21:44 Workstation ID: [id number] Transcribed By: Self Edit Transcribed Date: 01/06/2023 21:40 [employer] EXAMINATION TYPE: XR KNEE 4+ VIEWS RIGHT DATE OF EXAM: 01/06/2023 9:05 PM COMPARISON: Prior day HISTORY: effusion, pain, fever FINDINGS: Negative for erosion of the joint space or periosteal reaction. Trace suprapatellar joint fluid. Fabella. Negative for fracture or dislocation. CT or MRI could further assess the knee if deemed appropriate. Soft tissue swelling can be better assessed with physical exam and correlated with the prior study. POWERSCRIBE Reyes Dixon MD - 01/06/2023 EXAMINATION TYPE: XR KNEE 4+ VIEWS RIGHT DATE OF EXAM: 01/06/2023 9:05 PM COMPARISON: Prior day HISTORY: effusion, pain, fever FINDINGS: Negative for erosion of the joint space or periosteal reaction. Trace suprapatellar joint fluid. Fabella. Negative for fracture or dislocation. CT or MRI could further assess the knee if deemed appropriate. Soft tissue swelling can be better assessed with physical exam and correlated with the prior study. IMPRESSION: Negative for erosion of the joint space or periosteal reaction. Trace suprapatellar joint fluid. Fabella. Atherosclerotic vascular calcifications are noted. Negative for fracture or dislocation. Soft tissue swelling can be better assessed with physical exam and correlated with the prior study. CT or MRI could further assess the knee if deemed appropriate particularly if there is concern for soft tissue infection. -------- FINAL REPORT -------- Dictated By: Reyes Dixon Dictated Date: 01/06/2023 21:40 Assigned Physician: Reyes Dixon Reviewed and Electronically Signed By: Reyes Dixon Signed Date: 01/06/2023 21:44 Workstation ID: [id number] Transcribed By: Self Edit Transcribed Date: 01/06/2023 21:40 [facility] Radiology Study observation (narrative) [facility] XR Knee 4+ Views RightOrdere d By: Reyes Dixon on 01-06-2023 [facility] Work Phone: No Panel Informationon 01-05 1. No acute fracture or subluxation or joint effusion. 2. Posttraumatic olecranon bursitis. RIGHT KNEE: The bones are normally mineralized. There is no acute fracture or subluxation. No joint effusion is seen. Joint spaces are well-preserved. No intra-articular loose body is seen. Small enthesophyte noted at the insertion site of the quadriceps tendon on the superior pole the patella. Soft tissue edema noted about the medial aspect of the knee likely from direct trauma. IMPRESSION: 1. No acute fracture or subluxation or joint effusion. 2. Medial soft tissue edema/contusion from acute trauma. IMPRESSION: -------- FINAL REPORT -------- Dictated By: Jorge Martin Dictated Date: 01/05/2023 18:48 Assigned Physician: Jorge Martin Reviewed and Electronically Signed By: Jorge Martin Signed Date: 01/05/2023 18:51 Workstation ID: [id number] Transcribed By: Self Edit Transcribed Date: 01/05/2023 18:48 POWERSCR[employer]E EXAMINATION TYPE: XR ELBOW 3+ VIEWS RIGHT, XR KNEE 4+ VIEWS RIGHT DATE OF EXAM : 01/05/2023 6:10 PM HISTORY: elbow pain, persistent right knee and elbow against the wall while trying to catch his in a fall COMPARISON: None VIEWS: AP lateral and oblique right elbow and right knee FINDINGS: RIGHT ELBOW: The bones are normally mineralized. There is no acute fracture or subluxation. No joint effusion or elevation of fat pads is seen. Joint spaces are well-preserved. Enthesophyte noted at the insertion site of the triceps tendon on the olecranon as well as on the medial distal humeral epicondyle. There is posttraumatic distention of the olecranon bursa. POWERSCRIBE Jorge Martin M D - 01/05/2023 EXAMINATION TYPE: XR ELBOW 3+ VIEWS RIGHT, XR KNEE 4+ VIEWS RIGHT DATE OF EXAM : 01/05/2023 6:10 PM HISTORY: elbow pain, persistent right knee and elbow against the wall while trying to catch his in a fall COMPARISON: None VIEWS: AP lateral and oblique right elbow and right knee FINDINGS: RIGHT ELBOW: The bones are normally mineralized. There is no acute fracture or subluxation. No joint effusion or elevation of fat pads is seen. Joint spaces are well-preserved. Enthesophyte noted at the insertion site of the triceps tendon on the olecranon as well as on the medial distal humeral epicondyle. There is posttraumatic distention of the olecranon bursa. IMPRESSION: 1. No acute fracture or subluxation or joint effusion. 2. Posttraumatic olecranon bursitis. RIGHT KNEE: The bones are normally mineralized. There is no acute fracture or subluxation. No joint effusion is seen. Joint spaces are well-preserved. No intra-articular loose body is seen. Small enthesophyte noted at the insertion site of the quadriceps tendon on the superior pole the patella. Soft tissue edema noted about the medial aspect of the knee likely from direct trauma. IMPRESSION: 1. No acute fracture or subluxation or joint effusion. 2. Medial soft tissue edema/contusion from acute trauma. IMPRESSION: -------- FINAL REPORT -------- Dictated By: Jorge Martin Dictated Date: 01/05/2023 18:48 Assigned Physician: Jorge Martin Reviewed and Electronically Signed By: Jorge Martin Signed Date: 01/05/2023 18:51 Workstation ID: [id number] Transcribed By: Self Edit Transcribed Date: 01/05/2023 18:48 [facility] Radiology Study observation (narrative) [facility] [employer] No Panel InformationOrdered By: Jorge Martin on 01-05-2023 [facility] Work Phone: XR ELBOW 3+ VIEWS RIGHTon XR ELBOW 3+ VIEWS RIGHT EXAMINATION TYPE: XR ELBOW 3+ VIEWS RIGHT, XR KNEE 4+ VIEWS RIGHT DATE OF EXAM : 01/05/2023 6:10 PM HISTORY: elbow pain, persistent right knee and elbow against the wall while trying to catch his in a fall COMPARISON: None VIEWS: AP lateral and oblique right elbow and right knee FINDINGS: RIGHT ELBOW: The bones are normally mineralized. There is no acute fracture or subluxation. No joint effusion or elevation of fat pads is seen. Joint spaces are well-preserved. Enthesophyte noted at the insertion site of the triceps tendon on the olecranon as well as on the medial distal humeral epicondyle. There is posttraumatic distention of the olecranon bursa. IMPRESSION: 1. No acute fracture or subluxation or joint effusion. 2. Posttraumatic olecranon bursitis. RIGHT KNEE: The bones are normally mineralized. There is no acute fracture or subluxation. No joint effusion is seen. Joint spaces are well-preserved. No intra-articular loose body is seen. Small enthesophyte noted at the insertion site of the quadriceps tendon on the superior pole the patella. Soft tissue edema noted about the medial aspect of the knee likely from direct trauma. IMPRESSION: 1. No acute fracture or subluxation or joint effusion. 2. Medial soft tissue edema/contusion from acute trauma. IMPRESSION: -------- FINAL REPORT -------- Dictated By: Jorge Martin Dictated Date: 01/05/2023 18:48 Assigned Physician: Jorge Martin Reviewed and Electronically Signed By: Jorge Martin Signed Date: 01/05/2023 18:51 Workstation ID: [id number] Transcribed By: Self Edit Transcribed Date: 01/05/2023 18:48 Normal [facility] XR KNEE 4+ VIEWS RIGHTon XR KNEE 4+ VIEWS RIGHT EXAMINATION TYPE: XR ELBOW 3+ VIEWS RIGHT, XR KNEE 4+ VIEWS RIGHT DATE OF EXAM : 01/05/2023 6:10 PM HISTORY: elbow pain, persistent right knee and elbow against the wall while trying to catch his in a fall COMPARISON: None VIEWS: AP lateral and oblique right elbow and right knee FINDINGS: RIGHT ELBOW: The bones are normally mineralized. There is no acute fracture or subluxation. No joint effusion or elevation of fat pads is seen. Joint spaces are well-preserved. Enthesophyte noted at the insertion site of the triceps tendon on the olecranon as well as on the medial distal humeral epicondyle. There is posttraumatic distention of the olecranon bursa. IMPRESSION: 1. No acute fracture or subluxation or joint effusion. 2. Posttraumatic olecranon bursitis. RIGHT KNEE: The bones are normally mineralized. There is no acute fracture or subluxation. No joint effusion is seen. Joint spaces are well-preserved. No intra-articular loose body is seen. Small enthesophyte noted at the insertion site of the quadriceps tendon on the superior pole the patella. Soft tissue edema noted about the medial aspect of the knee likely from direct trauma. IMPRESSION: 1. No acute fracture or subluxation or joint effusion. 2. Medial soft tissue edema/contusion from acute trauma. IMPRESSION: -------- FINAL REPORT -------- Dictated By: Jorge Martin Dictated Date: 01/05/2023 18:48 Assigned Physician: Jorge Martin Reviewed and Electronically Signed By: Jorge Martin Signed Date: 01/05/2023 18:51 Workstation ID: [id number] Transcribed By: Self Edit Transcribed Date: 01/05/2023 18:48 Normal [facility] Bacteria identifiedon 2022 Bacteria identified Cx Nom (Unsp spec) Test: Tissue/Wound Culture/Smear Specimen Source: Skin Lesion Specimen Type: Tissue/Biopsy Specimen Date: 12/21/2022 11:32 AM Result Date: 12/23/2022 12:09 PM Result Status: Final result Abnormal: Yes Resulting Lab: [facility] [address] [place] [address] CULTURE (4+) Abundant Methicillin Susceptible Staphylococcus aureus (MSSA) (Abnormal) (2+) Few Enterobacter cloacae complex (Abnormal) SECOND and THIRD generation cephalosporin results are not reported as resistance may develop during therapy with these agents. STAIN No polymorphonuclear leukocytes seen (4+) Abundant Gram positive cocci (3+) Moderate Gram negative bacilli SUSCEPTIBILITY Methicillin Enterobacter Susceptible cloacae complex Staphylococcus aureus (MSSA) METHOD MICROSCAN MICROSCAN ------- AMOXICILLIN/CLAVULANAT E -- Resistant AMPICILLIN -- Resistant AMPICILLIN/SULBACTAM -- Resistant CEFAZOLIN -- Resistant CEFEPIME -- Susceptible CIPROFLOXACIN -- Susceptible CLINDAMYCIN -- Susceptible ERYTHROMYCIN -- Susceptible GENTAMICIN -- Susceptible LEVOFLOXACIN -- Susceptible OXACILLIN -- Susceptible PIPERACILLIN/TAZOBACTA M -- Susceptible TETRACYCLINE -- Susceptible TRIMETHOPRIM/SULFAMETH OXAZOLE -- Susceptible -- Susceptible VANCOMYCIN -- Susceptible Abnormal [facility] Comment on above: Performed By: #### 6 [id number] #### ABISAI Gaspar ([id number]) [facility] ([facility]) [address] [place] [address] XR ANKLE LEFT 3+ VIEWS (JOS FLEMING)on 02-08-2022 XR ANKLE LEFT 3+ VIEWS (STANDARD) EXAMINATION: XR ANKLE LEFT 3+ VIEWS (STANDARD) 02/08/2022 12:20 PM HISTORY: ORDERING SYSTEM PROVIDED HISTORY: left ankle pain, NKI, TECHNOLOGIST PROVIDED HISTORY: Injury/Trauma Reason for exam: Ankle pain Cancer History: no Surgery, RadiationHistory: no Encounter Type: Initial Mechanism of injury: Swelling and pain. No known injury ORDERING SYSTEM PROVIDED DIAGNOSIS CODES: M25.572 Acute left ankle pain COMPARISON: None. FINDINGS: The ankle mortise is preserved. The talar dome is intact. The visualized portion of the hindfoot and midfoot appears unremarkable. Well-corticated ossific density projecting along the plantar aspect of the cuboid is likely an accessory ossicle. Small tibiotalar joint effusion. IMPRESSION: No acute osseous abnormality. Small tibiotalar joint effusion. [employer] Workstation ID: [id number] Dictated by: ANGELICA PASCUAL on SunFeb 08, 2022 12:31:31 PM EST Transcribed by: JESUS GONZALES on SunFeb 08, 2022 12:56:08 PM EST Finalized by: ANGELICA PASCUAL on SunFeb 13, 2022 2:16:58 PM EST Normal [facility] Comment on above: Order Comment: Injur y/Trauma or Illness?:Injury/Trauma How long have you had these symptoms (acute/chronic)?:Acute Reason for exam?:Ankle pain History of cancer?:no Surgeries, chemotherapy, or radiation?:no Type of Exam?:Initial Mechanism of injury?:Swelling and pain. No known injury Vital Signs Date Time Vital Sign Value Performing Clinician Facility 11-12-2024 08:48-0400 Body temperature 97.8 [degF] Dr. Rey Greenwood MD Work Phone: [facility] 11-12-2024 08:48-0400 Diastolic blood pressure 95 mm[Hg] Dr. Rey Greenwood MD Work Phone: [facility] 11-12-2024 08:48-0400 Heart rate 59 /min Dr. Rey Greenwood MD Work Phone: [facility] 11-12-2024 08:48-0400 Respiratory rate 14 /min Dr. Rey Greenwood MD Work Phone: [facility] 11-12-2024 08:48-0400 Systolic blood pressure 178 mm[Hg] Dr. Rey Greenwood MD Work Phone: [facility] 11-05-2024 08:22-0400 Body mass index (BMI) [Ratio] 30.1 kg/m2 Dr. Rey Greenwood MD Work Phone: [facility] 11-05-2024 08:22-0400 Body temperature 97.8 [degF] Dr. Rey Greenwood MD Work Phone: [facility] 11-05-2024 08:22-0400 Diastolic blood pressure 112 mm[Hg] Dr. Rey Greenwood MD Work Phone: [facility] 11-05-2024 08:22-0400 Heart rate 79 /min Dr. Rey Greenwood MD Work Phone: [facility] 11-05-2024 08:22-0400 Respiratory rate 15 /min Dr. Rey Greenwood MD Work Phone: [facility] 11-05-2024 08:22-0400 Systolic blood pressure 185 mm[Hg] Dr. Rey Grenewood MD Work Phone: [facility] 10-15-2024 13:57-0400 Body height 177.[address] Rey Greenwood MD Work Phone: [facility] 10-15-2024 13:57-0400 Body weight 95.[address] Rey Greenwood MD Work Phone: [facility] 11-20-2023 14:35-0400 Body mass index (BMI) [Ratio] 26.67 kg/m2 Nallely Lyonsyaquelin Work Phone: [facility] [employer] 11-20-2023 14:35-0400 Body weight 84.32 kg Nallely Lyonsyaquelin Work Phone: [facility] 11-20-2023 14:35-0400 Diastolic blood pressure 67 mm[Hg] Nallely Benavidez Work Phone: [facility] 11-20-2023 14:35-0400 Heart rate 54 /min Nallely Serenayaquelin Work Phone: [facility] 11-20-2023 14:35-0400 Respiratory rate 12 /min Nallely Serenayaquelin Work Phone: [facility] [employer] [facility] 11-20-2023 14:35-0400 SaO2% (BldA) [Mass fraction] 95 % Nallely Serenayaquelin Work Phone: [facility] [employer] 11-20-2023 14:35-0400 Systolic blood pressure 135 mm[Hg] Nallely Benavidez Work Phone: [facility] 11-13-2023 11:59-0400 Body temperature 97.5 [degF] Morgan Grover MD Work Phone: [facility] 11-13-2023 11:59-0400 Diastolic blood pressure 70 mm[Hg] Morgan Grover MD Work Phone: [facility] 11-13-2023 11:59-0400 Heart rate 65 /min Morgan Grover MD Work Phone: [facility] 11-13-2023 11:59-0400 Respiratory rate 16 /min Morgan Grover MD Work Phone: [facility] 11-13-2023 11:59-0400 SaO2% (BldA) [Mass fraction] 92 % Morgan Grover MD Work Phone: [facility] 11-13-2023 11:59-0400 Systolic blood pressure 125 mm[Hg] Morgan Grover MD Work Phone: [facility] 11-13-2023 05:06-0400 Body mass index (BMI) [Ratio] 31.32 kg/m2 Morgan Grover MD Work Phone: [facility] 11-13-2023 05:06-0400 Body weight 99 kg Morgan Grover MD Work Phone: [facility] 11-10-2023 07:45-0400 Body height 177.8 cm Morgan Grover MD Work Phone: [facility] 01-09-2023 11:30-0500 Body temperature 97.9 [degF] Jamal Dan MD Work Phone: [facility] 01-09-2023 11:30-0500 Diastolic blood pressure 69 mm[Hg] Jamal Dan MD Work Phone: [facility] 01-09-2023 11:30-0500 Heart rate 58 /min Jamal Dan MD Work Phone: [facility] 01-09-2023 11:30-0500 SaO2% (BldA) [Mass fraction] 92 % Jamal Dan MD Work Phone: [facility] 01-09-2023 11:30-0500 Systolic blood pressure 145 mm[Hg] Jamal Dan MD Work Phone: [facility] [employer] 01-09-2023 05:41-0500 Respiratory rate 18 /min Jamal Dan MD Work Phone: [facility] [employer] 01-07-2023 14:10-0500 Body height 177.8 cm Jamal Dan MD Work Phone: [facility] [employer] 01-07-2023 14:10-0500 Body mass index (BMI) [Ratio] 30.39 kg/m2 Jamal Dan MD Work Phone: [facility] [employer] 01-07-2023 14:10-0500 Body weight 96.07 kg Jamal Dan MD Work Phone: [facility] [employer] 01-05-2023 18:43-0500 Body temperature 100 [degF] Morgan Grover MD Work Phone: [facility] 01-05-2023 17:47-0500 Diastolic blood pressure 87 mm[Hg] Morgan Grover MD Work Phone: [facility] [employer] 01-05-2023 17:47-0500 Heart rate 80 /min Morgan Grover MD Work Phone: [facility] 01-05-2023 17:47-0500 Respiratory rate 18 /min Morgan Grover MD Work Phone: [facility] 01-05-2023 17:47-0500 SaO2% (BldA) [Mass fraction] 96 % Morgan Grover MD Work Phone: [facility] 01-05-2023 17:47-0500 Systolic blood pressure 190 mm[Hg] Morgan Grover MD Work Phone: [facility] [employer] 01-05-2023 17:45-0500 Body height 177.8 cm Morgan Grover MD Work Phone: [facility] 01-05-2023 17:45-0500 Body mass index (BMI) [Ratio] 30.13 kg/m2 Morgan Grover MD Work Phone: [facility] 01-05-2023 17:45-0500 Body weight 95.25 kg Morgan Grover MD Work Phone: [facility] 01-03-2023 10:21-0500 Body height 177.8 cm [facility] 01-03-2023 10:21-0500 Body mass index (BMI) [Ratio] 30.1 kg/m2 [facility] 01-03-2023 10:21-0500 Body temperature 97 [degF] [facility] 01-03-2023 10:21-0500 Body weight 95.25 kg [facility] 01-03-2023 10:21-0500 Diastolic blood pressure 96 mm[Hg] [facility] 01-03-2023 10:21-0500 Heart rate 63 /min [facility] 01-03-2023 10:21-0500 Respiratory rate 16 /min [facility] 01-03-2023 10:21-0500 Systolic blood pressure 150 mm[Hg] [facility] 12-21-2022 10:58-0500 Body height 177.8 cm Matt Mallory SHIELD CLEANER-OUTDOOR GUIDE Work Phone: [facility] 12-21-2022 10:58-0500 Body mass index (BMI) [Ratio] 29.41 kg/m2 Matt Mallory SHIELD CLEANER-OUTDOOR GUIDE Work Phone: [facility] 12-21-2022 10:58-0500 Body temperature 97.81 [degF] Matt Mallory SHIELD CLEANER-OUTDOOR GUIDE Work Phone: [facility] 12-21-2022 10:58-0500 Body weight 92.99 kg Matt Mallory SHIELD CLEANER-OUTDOOR GUIDE Work Phone: [facility] 12-21-2022 10:58-0500 Diastolic blood pressure 89 mm[Hg] Matt Mallory SHIELD CLEANER-OUTDOOR GUIDE Work Phone: [facility] 12-21-2022 10:58-0500 Heart rate 54 /min Matt Mallory SHIELD CLEANER-OUTDOOR GUIDE Work Phone: [facility] 12-21-2022 10:58-0500 Respiratory rate 16 /min Matt Mallory SHIELD CLEANER-OUTDOOR GUIDE Work Phone: [facility] 12-21-2022 10:58-0500 SaO2% (BldA) [Mass fraction] 95 % Matt Mallory SHIELD CLEANER-OUTDOOR GUIDE Work Phone: [facility] 12-21-2022 10:58-0500 Systolic blood pressure 173 mm[Hg] Matt Mallory SHIELD CLEANER-OUTDOOR GUIDE Work Phone: [facility] 02-08-2022 11:26-0500 Body temperature 98.01 [degF] Sabrina Breece PA-C Work Phone: [facility] 02-08-2022 11:26-0500 Body weight 97.52 kg Sabrina Breece PA-C Work Phone: [facility] 02-08-2022 11:26-0500 Diastolic blood pressure 83 mm[Hg] Sabrina Breece PA-C Work Phone: [facility] 02-08-2022 11:26-0500 Heart rate 56 /min Sabrina Breece PA-C Work Phone: [facility] 02-08-2022 11:26-0500 Respiratory rate 16 /min Sabrina Breece PA-C Work Phone: [facility] 02-08-2022 11:26-0500 SaO2% (BldA) [Mass fraction] 95 % Sabrina Breece PA-C Work Phone: [facility] 02-08-2022 11:26-0500 Systolic blood pressure 136 mm[Hg] Sabrina Breece PA-C Work Phone: [facility] Encounters Encounter Date Encounter Type Care Provider Facility Start: 11-26-2024 End: 11-26-2024 ambulatory Rey Chi Timo [place] [place] Start: 11-12-[address] Elke Gonzalez D[facility]avide [facility] Work Phone: Start: 11-05-2024 End: 11-11-[address] Rey Greenwood MD Work Phone: [facility] Start: 11-05-2024 End: 11-11-[address] Nathen Gonzalez DPM [facility] Work Phone: Start: 10-23-2024 End: 10-23-[address] Rey Greenwood MD Work Phone: -[facility] Start: 10-23-2024 End: 10-23-[address] Rey Greenwood MD -[facility] Start: 10-23-2024 End: 10-23-2024 ambulatory Rey Greenwood Facility:[facility] Start: 10-21-2024 Non-patient / Non-visit Dr. Manolo NI [facility] Start: 11-20-2023 End: 11-20-2023 Office outpatient new 45 minutes Nallely Benavidez Work Phone: [facility] Comment on above: Acute congestive hea rt failure, unspecified heart failure type (CMS/HCC) (Primary Dx); Coronary artery disease involving quechan coronary artery of quechan heart without angina pectoris; Cellulitis of right lower leg; Hyperlipidemia, unspecified hyperlipidemia type; Peripheral arterial disease with history of revascularization (CMS/HCC); Ischemic cardiomyopathy; Left anterior fascicular block (LAFB) Start: 11-20-2023 End: 11-20-2023 Patient encounter procedure Nallely Benavidez Work Phone: [facility] Start: 11-20-2023 End: 11-20-2023 ambulatory ALISIA~[id number] ERI CRUMP [facility] Start: 11-09-2023 End: 11-13-2023 Evaluation and management of inpatient ALISIA~[id number] ERI CRUMP [facility] Start: 11-08-2023 End: 11-13-2023 Evaluation and management of inpatient Morgan Grover MD Work Phone: [facility] Comment on above: Acute congestive hea rt failure, unspecified heart failure type (CMS/HCC) (Primary Dx); Osteomyelitis, unspecified site, unspecified type (CMS/HCC); Osteomyelitis of foot, left, acute (CMS/HCC) Start: 10-30-2023 End: 10-30-2023 ambulatory Facility:[facility] Start: 10-30-2023 End: 10-30-2023 Patient encounter procedure Akaash Morrisporterdeangelo KEYSHA Work Phone: [facility] Comment on above: Injury of left great toe, initial encounter (Primary Dx) Start: 01-06-2023 End: 01-09-2023 Evaluation and management of inpatient PRASHANTH MARTINEZ [facility] Start: 01-06-2023 End: 01-09-2023 Evaluation and management of inpatient Jamal Dan MD Work Phone: [facility] Comment on above: Cellulitis of right lower leg (Primary Dx); Effusion, right knee; Ulcer of foot, chronic, right, with unspecified severity (CMS/HCC) Start: 01-05-2023 End: 01-05-2023 Emergency department patient visit Morgan Grover MD Work Phone: [facility] Emergency Room Comment on above: Acute pain of right knee (Primary Dx); Right elbow pain; Ulcer of right foot, limited to breakdown of skin (CMS/HCC); Cellulitis of right leg Start: 01-05-2023 End: 01-05-2023 Evaluation and management of inpatient Morgan Grover MD Work Phone: [facility] Emergency Room Start: 01-03-2023 End: 01-11-2023 ambulatory [facility] Work Phone: Start: 01-03-2023 End: 01-11-2023 Discharged Recurring [facility] Work Phone: Start: 12-21-2022 End: 12-21-2022 ambulatory MATT MALLORY [facility] Start: 12-21-2022 End: 12-21-2022 Office outpatient visit 15 minutes Matt Mallory SHIELD CLEANER-OUTDOOR GUIDE Work Phone: [facility] Comment on above: Wound of right foot (Primary Dx) Start: 02-08-2022 End: 02-09-2022 ambulatory PHYSICIAN [facility] Start: 02-08-2022 End: 02-08-2022 Office outpatient visit 15 minutes Sabrina MORALESC Work Phone: [facility] [place] Comment on above: Acute left ankle jj n (Primary Dx); Acute gout of left ankle, unspecified cause Procedures Date Procedure Procedure Detail Performing Clinician Start: 10-23-2024 Hepatitis C antibody measurement Dr. Rey Greenwood MD Work Phone: Comment on above: Reactive: Presumptiv e evidence of antibodies to HCV. Follow CDC recommendations for supplemental testing.Non-Reactive: Antibodies to HCV were not detected; does not exclude the possibility of exposure to HCVReactive Results are presumptive evidence of antibodies to HCV. Follow CDC recommendations for supplemental testing.Order confirmation testing: HCV Quant by PCR testing - HCVPCR #[id number] Non Reactive: < 0.8 Equivocal: >/= 0.8 to < 1.0 Reactive: >/= 1.0The CDC requires that a reactive/equivocal HCV antibody result be sent out for confirmation. HCV Quant by PCR testing. Start: 10-23-2024 Vitamin D, 25-hydrox y measurement Dr. Rey Greenwood MD Work Phone: Comment on above: Vitamin D StatusDefi ciency: <20 ng/mL (50nmol/L)Insufficiency: 20-30 ng/mL (50-75 nmol/L)Sufficiency: 30-100 ng/mL (75-250 nmol/L)Toxicity: >100 ng/mL (>250 nmol/L) Start: 10-20-2024 Radex foot complete minimum [address] Rey Greenwood MD Work Phone: Start: 11-20-2023 Ecg routine ecg w/le ast 12 lds w/i&r Nallely Benavidez Work Phone: Start: 11-13-2023 Basic metabolic pane l calcium total Detta Veronica CHEESE GRADER Work Phone: Start: 11-12-2023 PEP THERAPY Saadri Car hid DO Work Phone: Start: 11-12-2023 Radiologic exam ches t single view Detta Veronica CHE[employer] GRADER Work Phone: Start: 11-12-2023 Basic metabolic pane l calcium total Saadri Bailey DO Work Phone: Start: 11-12-2023 Assay of troponin quantitative Detta Veronica CHEESE GRADER Work Phone: Start: 11-11-2023 Assay of troponin quantitative Detta Veronica CHEESE GRADER Work Phone: Start: 11-11-2023 Cyanocobalamin vitam in b-12 Tramaine Perez DO Work Phone: Start: 11-11-2023 Blood count complete automated Sabrina Bailey DO Work Phone: Start: 11-10-2023 Assay of troponin quantitative Detta Veronica CHEESE GRADER Work Phone: Start: 11-10-2023 End: 11-10-2023 Cul bact xcpt urine blood/stool aerobic isol Milan Castro MD Work Phone: Start: 11-10-2023 End: 11-10-2023 AMPUTATION TOE Milan Castro MD Work Phone: Start: 11-10-2023 Echo tthrc r-t 2d w/wom-mode compl spec&colr d Kvngdrbria Bailey DO Work Phone: Start: 11-10-2023 Basic metabolic pane l calcium total Kvngdri Bailey DO Work Phone: Start: 11-10-2023 EXTRA TUBES Saadri Car hid DO Work Phone: Start: 11-10-2023 GREEN YELLOW PST Saadri Bailey DO Work Phone: Start: 11-09-2023 Assay of lactate Saadri Bailey DO Work Phone: Start: 11-09-2023 Non-invas physiologi c std extremity art 2 level Detta Veronica CHE[employer] GRADER Work Phone: Start: 11-09-2023 Assay of magnesium Dett a Veronica CHEESE GRADER Work Phone: Start: 11-09-2023 Ecg routine ecg w/le ast 12 lds trcg only w/o i&r Saadri Bailey DO Work Phone: Start: 11-09-2023 Mri lower extrem oth /thn jt w/o & w/contr matr Detta Veronica CHEESE GRADER Work Phone: Start: 11-09-2023 Antibody screen TERENCE Ortega~[id number] ERI CRUMP Comment on above: Performed By: #### 6 36-1 #### [facility] [address] [address] [facility] [address] [place] [address] Start: 11-09-2023 Antibody screen rbc each serum technique Meghan PITTMAN Work Phone: Start: 11-09-2023 Basic metabolic pane l calcium total Saadri Bailey DO Work Phone: Start: 11-09-2023 End: 11-09-2023 Culture bacterial blood aerobic w/id isolates Morgan Grover MD Work Phone: Start: 11-08-2023 End: 11-08-2023 Assay of lactate Morgan Grover MD Work Phone: Start: 11-08-2023 Radex foot complete minimum 3 views Morgan Grover MD Work Phone: Start: 11-08-2023 Radiologic exam ches t single view Morgan Grover MD Work Phone: Start: 11-08-2023 Ecg routine ecg w/le ast 12 lds trcg only w/o i&r Morgan Grover MD Work Phone: Start: 11-08-2023 Basic metabolic pane l calcium total Morgan Grover MD Work Phone: Start: 11-08-2023 C-reactive protein Rich mitalijuli Grover MD Work Phone: Start: 11-08-2023 CBC W Auto Different ial panel - Blood Morgan Grover MD Work Phone: Start: 01-09-2023 Basic metabolic pane l calcium total Janelle PITTMAN Work Phone: Start: 01-09-2023 CBC W Auto Different ial panel - Blood Janelle PITTMAN Work Phone: Start: 01-09-2023 Drug screen quantita tive vancomycin Janelle Gonzalez PA Work Phone: Start: 01-08-2023 Basic metabolic pane l calcium total Janelle PITTMAN Work Phone: Start: 01-08-2023 CBC W Auto Different ial panel - Blood Janelle PITTMAN Work Phone: Start: 01-07-2023 Non-invas physiologi c std extremity art 2 level Sammie Daly MD Work Phone: Start: 01-07-2023 Dup-scan xtr veins complete bilateral study Prashanth Martinez [employer] Work Phone: Start: 01-07-2023 Mri lower extrem oth /thn jt w/o & w/contr matr Prashanth Martinez DO Work Phone: Start: 01-07-2023 CBC W Auto Different ial panel - Blood Janelle PITTMAN Work Phone: Start: 01-07-2023 End: 01-07-2023 Basic metabolic panel calcium total Janelle Rivera Lisa PITTMAN Work Phone: Start: 01-07-2023 Arthrocentesis aspir &/inj major jt/bursa w/o us Jamal Dan MD Work Phone: Start: 01-06-2023 Cell count misc body fluids w/differential count Jamal Dan MD Work Phone: Start: 01-06-2023 Crystal id light microscopy nas tiss/any fluid Jamal Dan MD Work Phone: Start: 01-06-2023 DIFFERENTIAL BODY FLUID Jamal Dan MD Work Phone: Start: 01-06-2023 Glucose body fluid o ther than blood Jamal Dan MD Work Phone: Start: 01-06-2023 End: 01-06-2023 Radiologic exam knee complete 4/more views Jamal Dan MD Work Phone: Start: 01-06-2023 Basic metabolic pane l calcium total Rolanda PITTMAN Work Phone: Start: 01-06-2023 C-reactive protein Fauzia jacklyn PITTMAN Work Phone: Start: 01-06-2023 CBC W Auto Different ial panel - Blood Rolanda PITTMAN Work Phone: Start: 01-06-2023 End: 01-06-2023 Culture bacterial blood aerobic w/id isolates Rolanda PITTMAN Work Phone: Start: 01-05-2023 Radex elbow complete minimum 3 views Morgan Grover MD Work Phone: Start: 12-21-2022 TISSUE/WOUND CULTURE/SMEAR MATT MALLORY Start: 02-08-2022 Radex ankle complete minimum 3 views Sabrina Lewis PA-C Work Phone: H/O: surgery History of throa t surgery Dr. Rey Greenwood MD Work Phone: Comment on above: Vocal cord surgery f or throat cancer Plan of Treatment Date Care Activity Detail Author Start: 01-09-2026 Diabetes Screening Diabetes Screening [facility] Start: 12-19-2024 ambulatory Ambulatory Facility:[facility] Start: 11-12-2024 Falls Risk Assessment Falls Risk Assessment [facility] Start: 11-12-2024 Hypertension/CHF/CAD Annual BMP Blood Test Hypertension/CHF/CAD Annual BMP Blood Test [facility] Start: 11-09-2024 Social Influencers of Health Screening [facility] [employer] Screening [facility] Start: 11-05-2024 Registered Recurring Acute painful diabetic polyneuropathy -[facility] Work Phone: Start: 01-10-2024 Falls Risk Assessment Falls Risk Assessment [facility] Start: 01-10-2024 Hypertension/CHF/CAD Annual BMP Blood Test Hypertension/CHF/CAD Annual BMP Blood Test [facility] [employer] Start: 01-08-2024 Social Influencers of Health Screening Social [employer] Screening [facility] [employer] Start: 11-20-2023 End: 11-20-2023 Patient encounter procedure 11/20/2023 3:00 PM EDT Office Visit [facility]y [facility] [employer] [address] [facility] [address] [place] [address] Nallely Benavidez [address] [facility] [address] [place] [address] Ludy Ricketts [facility] [employer] [facility] [employer] Start: 10-14-2023 Covid-19 Vaccine ( season) Covid-19 Vaccine ( season) [facility] Start: 10-14-2023 Influenza vaccination Influenza Vaccine (#1) [facility] Start: 02-12-2023 Advance Directive Discussion Advance Directive Discussion [facility] Start: 01-05-2023 Abdominal aortic aneurysm screening Abdominal Aortic Aneurysm (AAA) Screen [facility] Start: 01-05-2023 Adolescent depression screening assessment Depression Screening [facility] Start: 01-05-2023 Falls Risk Assessment Falls Risk Assessment [facility] Start: 01-05-2023 Hepatitis C screening Hepatitis C Screening [facility] Start: 01-05-2023 Hypertension/CHF/CAD Annual BMP Blood Test Hypertension/CHF/CAD Annual BMP Blood Test [facility] Start: 01-05-2023 Lipid panel Cholesterol Screening (Lipid Panel) [facility] Start: 01-05-2023 Medicare Annual Wellness Visit Medicare Annual Wellness Visit [facility] Start: 01-05-2023 Screening for malignant neoplasm of colon Colorectal Cancer Screening: Colonoscopy [facility] Start: 01-05-2023 Social Influencers of Health Screening Social Influencers of Health Screening [facility] Start: 10-13-2022 Influenza vaccination Influenza Vaccine (#1) [facility] Start: 10-13-2021 Influenza vaccination Sequential Influenza Vaccine (#1) [facility] Start: 04-26-2018 Pneumococcal Vaccine: Age 65+ (2 - PPSV23 if available, else PCV20) Pneumococcal Vaccine: Age 65+ (2 - PPSV23 if available, else PCV20) [facility] Start: 06-21-2017 Pneumococcal Vaccine: 65+ Years (2 - PPSV23 or PCV20) Pneumococcal Vaccine: 65+ Years (2 - PPSV23 or PCV20) [facility] Start: 06-21-2017 Pneumococcal Vaccine: 65+ Years (2 of 2 - PPSV23 or PCV20) Pneumococcal Vaccine: 65+ Years (2 of 2 - PPSV23 or PCV20) [facility] Start: 06-18-2012 Fall risk assessment Falls Risk Assessment [facility] Start: 06-18-2012 Pneumococcal Vaccine: 65+ (1 of 1 - PCV) Pneumococcal Vaccine: 65+ (1 of 1 - PCV) [facility] Start: 06-18-2012 Pneumococcal Vaccine: 65+ Years (1 - PCV) Pneumococcal Vaccine: 65+ Years (1 - PCV) [facility] Start: 2007 RSV Immunization Patients 60+ Years Old (1 - 1-dose 60+ series) RSV Immunization Patients 60+ Years Old (1 - 1-dose 60+ series) [facility] Start: 2007 RSV Vaccine (1 - 1-dose 60+ series) RSV Vaccine (1 - 1-dose 60+ series) [facility] Start: 06-18-1997 Administration of herpes zoster vaccine Zoster Vaccines (1 of 2) [facility] Start: 06-18-1997 Screening for malignant neoplasm of colon Flexible sigmoidoscopy [facility] Start: 06-18-1997 Shingrix Vaccine (1 of 2) Shingrix Vaccine (1 of 2) [facility] Start: 06-18-1997 Zoster Vaccines (1 of 2) Zoster Vaccines (1 of 2) [facility] Start: 06-18-1969 DTaP/Tdap/Td Vaccines (1 - Tdap) DTaP/Tdap/Td Vaccines (1 - Tdap) [facility] Start: 06-18-1966 DTaP,Tdap,and Td Vaccines (1 - Tdap) DTaP,Tdap,and Td Vaccines (1 - Tdap) [facility] Start: 06-18-1966 Urine microalbumin profile DTaP,Tdap,Td Vaccine (1 - Tdap) [facility] Start: 06-18-1966 Zoster Vaccines (1 of 2) Zoster Vaccines (1 of 2) [facility] Start: 06-18-1965 Anxiety Screening Anxiety Screening [facility] Start: 06-18-1965 Depression Screening Depression Screening [facility] Start: 06-18-1965 Hepatitis C screening Hepatitis C Screening [facility] Start: 1959 Depression screening using PHQ-9 (Patient Health Questionnaire 9) score Depression Screening (PHQ-2/9) [facility] Start: 06-18-1952 COVID-19 Vaccine (#1) COVID-19 Vaccine (#1) [facility] Start: 06-18-1950 History and physical examination, annual for health maintenance Wellness Visit [facility] Start: 1947 COVID-19 Vaccine (#1) COVID-19 Vaccine (#1) [facility] Start: 1947 Abdominal aortic aneurysm screening Abdominal Aortic Ultrasound [facility] Start: 1947 Lipid panel Lipid Panel [facility] Start: 1947 Medicare Annual Wellness Visit Medicare Annual Wellness Visit (AWV) [facility] Start: 1947 Prostate specific antigen measurement PSA Level [facility] Start: 1947 Screening for malignant neoplasm of colon [facility] Start: 1947 Tetanus vaccination Tetanus: Every 10yrs [facility] Bacteria identified in Blood by Culture [employer] Phone: Bacteria identified in Blood by Culture [employer] Phone: Bacteria identified in Tissue by Culture Culture tissue with gram stain Microbiology Routine Osteomyelitis of foot, left, acute ([facility]) 11/10/2023 1:12 PM EDT [facility] Work Phone: Bacteria identified in Unspecified specimen by Culture Tissue/Wound Culture/Smear Microbiology Routine Wound of right foot 12/21/2022 11:32 AM EST [facility] Service Area Work Phone: X-ray of left ankle XR Ankle Lef t 3+ Views (Standard) Imaging [facility] Acute left ankle pain 02/08/2022 12:24 PM EST [facility] Work Phone: Immunizations Immunization Date Immunization Notes Care Provider Fa [facility] 10-10-2022 influenza virus vacc ine, unspecified formulation Morgan Grover MD Work Phone: [facility] 11-29-2019 Influenza Quadravale nt, 0.5ml (Fluzone High-dose) 65yo and older Nallely Benavidez Work Phone: [facility] 11-29-2019 influenza virus vacc ine, unspecified formulation Morgan Grover MD Work Phone: [facility] 11-01-2018 influenza, high dose seasonal, preservative-free Nallely Benavidez Work Phone: [facility] 04-26-2017 pneumococcal conjuga te vaccine, 13 valent Nallely Benavidez Work Phone: [facility] 11-11-2016 Influenza, injectabl e, Madin Trang Canine Kidney, preservative free, quadrivalent Nallely Benavidez Work Phone: [facility] Payers Date Payer Category Payer Self-pay 2023 Medicare [id number] 2022 [employer] ( and others) FOR LIFE [id number] 2022-Present [address] [place] [address] [id number] 2022 [employer] ( and others) [id number] 2022 Private Health Insurance [employer] FOR LIFE [id number] 2022-Present [address] [place] [address] [id number] 2022 Private Health Insurance [id number] 2022 Unknown [place] RE[place] [id number] 2022-Present [phone] [address] [place] [address] [id number] 2022 Unknown [id number] 2012 Medicare [id number] 2012 Medicare [id number] 1945 Unknown [id number]. 903 1947 Unknown [id number]. 903 1947 Unknown [id number]. 1243 1947 Unknown [id number] [id number]. 114 1947 Unknown [id number]. 1143 1947 Unknown [id number]. 1143 1947 Unknown [id number] [id number]. 1143 Unknown [id number] [id number]. 462 Unknown [id number]. 462 Unknown [id number] [id number]. 462 Unknown [id number]. 462 Unknown [id number] 462 Social History Date Type Detail Facility Start: 02-08-2022 End: 10-30-2023 Tobacco smoking status NHIS Ex-smoker [facility] History of tobacco use Current smoker [facility] History of tobacco use Cigarette Smoker [facility] Start: 02-08-2022 End: 01-05-2023 Tobacco use and exposure Smokeless tobacco non-user [facility] Start: 02-08-2022 End: 11-20-2023 Alcohol intake Lifetime non-drinker (finding) [facility] Start: 1945 Sex Assigned At Not on file [facility] Tobacco smoking status [facility] Tobacco smoking consumption unknown [facility] Work Phone: Start: 01-07-2023 End: 11-10-2023 Gender identity Not on file [facility] Start: 12-11-2022 End: 12-21-2022 Exposure to SARS-CoV-2 (event) Not sure [facility] Start: 01-07-2023 End: 11-10-2023 History of Social function [facility] Are you worried that in the next 2 months you may not have stable housing? No [facility] Start: 1945 Sex Assigned At Male [facility] Clinical Notes 02-08-2022 to 11-05-2024 Note Date & Type Note Facility 11-05-2024 Progress note Note Date/Time November 05, 2024 8:38am [facility] [address] [place] [address] Progress Note - Wound Care 11/05/24832 MR#: [id number] Acct: [id number] Name: YONI VILLALPANDO Rep #:[id number] : 1945 79 From: Nathen LANZA PCP: Dr. Rey Greenwood MD Status:REG R CR Location: History of Present Illness Date of Service: 11/05/24 Chief Complaint: Diabetic ulceration of the left great toe History of Wound: The patient is seen on behalf of Dr. Nathen Gonzalez, Podiatric specialist, who is the patient's regular Wound Center provider. Patient's history has been previously documented by Dr. Gonzalez. He is under treatment for an ulceration of the plantar aspect of the left great toe. He is a known diabetic, and has a history of myocardial infarction and congestive heart failure. He denies a history of cerebrovascular accident, pulmonary disease, renal disease, thyroid disease, and hyperlipidemia. The patient is not currently a smoker, but formerly smoked 1 pack of cigarettes per day for approximately 45 years. 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 He has a history of peripheral arterial occlusive disease, and indicates that 2 vascular stents have been placed in his right lower extremity, and 1 in his left lower extremity. The patient is ambulatory, but suffers from classic symptoms of intermittent claudication at short distances of ambulation. With 2 blocks of ambulation, the patient experiences calf pain, which is typically relieved by rest. Current management involves the use of Betadine topically to his left great toe ulceration. 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 Patient has seen his primary doctor and has been takenoff some of his blood pressure medication and is showing signs of hypertension with 2 blood pressure readings while in clinic today. He is on a green pill as he says but does not know the name for the medicine he is taking for his blood pressure. He is off his inhaler for his COPD. He does admit to some discomfortdue to his high blood pressure today. He has been compliant with dressing changes to the plantar wound to the left foot. He is motivated to move forward with surgical intervention. Denies trauma. Denies constitutional symptoms. Noother pedal complaints at this time. Objective Data Objective Data Vital Signs: Vital Signs Temp Pulse Resp BP O2 Del Method 97.8 F 79 15 185/112 H Room Air 11/05/24 08:22 11/05/24 08:22 11/05/24 08:22 11/05/24 08:22 10/29/24 08:12 Oxygen Delivery Method Room Air Weight: 95.254 kg Body Mass Index (BMI) 30.1 Physical Exam Narrative Vascular: DP and PT pulses palpable. CFT brisk. No erythema or proximal streaking. Skin temperature is warm to warm with no focal increase. Neurologic: Light touch is intact. Protective sensation is absent. 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 Full-thickness wound to the plantar aspect left hallux measuring 0.8 x 0.8 x 0.2 cm. Wound base is granular with no signs of infection. Excisional debridement down to including subcutaneous tissue with number 3 mm dermal curette to the full-thickness wound to plantar aspect of left hallux donewithout incident. Predebridement measurement was 0.6 x 0.5 x 0.1 cm. Postdebridement measurement is 0.8 x 0.7 x 0.2 cm. Musculoskeletal: Decreased range of motion to the first metatarsal phalangeal joint to the left foot. No pain on palpation to the full-thickness wound to plantar aspect of the left great toe. No pain with calf pressure. Debridement Note Debridement Note Debridement Free Text: Excisional debridement down to including subcutaneous tissue with number 3 mm dermal curette to the full-thickness wound to plantar aspect of left hallux done without incident. Predebridement measurement was 0.6x 0.5 x 0.1 cm. Postdebridement measurement is 0.8 x 0.7 x 0.2 cm. Post-Debridement Measurements and Additional Note: Post-Debridement Measurements/Treatment WC - Nurse 1 - General Ulcer Assessment Start: 10/15/24 13:57 Freq: Status: Active Protocol: STEVEN.ISAIAH Activity Type Activity Date Activity User E-sign Co-sign Detail Recorded Client Recorded Date Recorded By Document 10/15/24 13:57 DL [id number] 10/15/24 14:19 DL Document 10/21/24 10:02 BMF [id number] 10/21/24 10:08 BMF Edit Result 10/21/24 10:02 BMF (1) [id number] 10/21/24 10:10 BMF Document 10/29/24 08:12 DS [id number] 10/29/24 08:20 DS Document 10/29/24 08:21 DS [id number] 10/29/24 08:22 DS Document 11/05/24 08:22 ML [id number] 11/05/24 08:24 ML (1) Pulse Rate (60-100) => 80 Comment => 160/106 BP RECHK L => ARM PULSE 80 PER => MONITOR. 10/15/24 10/21/24 10/29/24 13:57 10:02 08:12 WC - Today's Visit Information Type of service Initial Visit Follow-up Visit Follow-up Visit (Physician/OUTDOOR GUIDE (Physician/OUTDOOR GUIDE ) ) Arrival Mode Ambulatory Ambulatory Ambulatory Transfer Assistance None None Patient Identification Verified (Name & Yes Yes ) Patient Requires Transmission-Based No No Precautions Safety Precautions NA Fall Prevention Height and Weight Height 5 ft 10 in Weight 95.254 kg Weight in Pounds 210.0 lbs Body Mass Index (BMI) 30.1 30.1 30.1 BMI Classification Obese Obese Obese Vital Signs Temperature (97.8 F-99.1 F) 98.2 F 98.1 F 98.7 F Temperature Source Temporal Temporal Temporal Pulse Rate (60-100) 85 80 62 Pulse Location Monitor Monitor Monitor Respiratory Rate (12-18) 18 16 18 Respiratory rate source Observation Observation Observation Oxygen Delivery Method Room Air Room Air Blood Pressure (90/60-120/80) 144/74 H 170/108 H 183/104 H Blood Pressure Mean (mm Hg) 97 128 130 Source Monitor Monitor Monitor Position Sitting Semi-Fowlers Blood Pressure Location Right Arm Left Arm Comment 160/106 BP RECHK L ARM PULSE 80 PER MONITOR. History Since Last Visit- (Skip if this is Patient's initial visit) Have you changed medications since your No Yes last visit? Any new allergies or adverse reactions No No Had a fall/change in ADL's that may No No increase risk of falls Signs or symptoms of abuse and/or No No neglect since last visit Have you been in the hospital since your No No last visit? Has dressing in place as prescribed Yes Yes Has compression in place as prescribed Yes N/A Has offloadiing in place as prescribed N/A N/A Experienced any changes in pain level or No No management Left Footwear Regular Shoe Regular Shoe Right Footwear Regular Shoe Regular Shoe Pain Scale: 0-10 Numeric Is Patient Pain Free? Yes Yes Yes Lower Extremity Assessment/ Foot Assessment/ Toe Nail Assessment Left -Posterior Tibial Palpable No -Dorsalis Pedis Palpable No -Extremity Color Hemosiderin -Hair Growth on Legs No -Hair Growth on Toes No -Capillary Refill Greater than 3 Seconds -Dependent Rubor No -Blanched when Elevated No -Lipodermatosclerosis No -Other Deformity Yes -Prior Foot Ulcer Yes -Charcot Joint No -Prior Amputation Yes -Thick Yes -Discolored Yes -Deformed Yes -Improper Length & Hygeine No Right -Posterior Tibial Palpable No -Dorsalis Pedis Palpable Yes -Extremity Color Hemosiderin -Hair Growth on Legs No -Hair Growth on Toes No -Temperature of Extremity Warm -Capillary Refill Greater than 3 Seconds -Dependent Rubor No -Blanched when Elevated No -Lipodermatosclerosis No -Other Deformity No -Prior Foot Ulcer No -Charcot Joint No -Prior Amputation No -Thick Yes -Discolored Yes -Deformed Yes -Improper Length & Hygeine No 10/29/24 11/05/24 08:21 08:22 WC - Today's Visit Information Type of service Follow-up Visit (Physician/OUTDOOR GUIDE ) Arrival Mode Ambulatory Transfer Assistance None Patient Identification Verified (Name & Yes ) Patient Requires Transmission-Based No Precautions Safety Precautions Height and Weight Height Weight Weight in Pounds Body Mass Index (BMI) 30.1 30.1 BMI Classification Obese Obese Vital Signs Temperature (97.8 F-99.1 F) 97.8 F Temperature Source Temporal Pulse Rate (60-100) 79 Pulse Location Monitor Respiratory Rate (12-18) 15 Respiratory rate source Observation Oxygen Delivery Method Blood Pressure (90/60-120/80) 175/99 H 185/112 H Blood Pressure Mean (mm Hg) 124 136 Source Monitor Monitor Position Sitting Sitting Blood Pressure Location Left Arm Right Arm Comment History Since Last Visit- (Skip if this is Patient's initial visit) Have you changed medications since your No last visit? Any new allergies or adverse reactions No Had a fall/change in ADL's that may No increase risk of falls Signs or symptoms of abuse and/or No neglect since last visit Have you been in the hospital since your No last visit? Has dressing in place as prescribed Yes Has compression in place as prescribed Yes Has offloadiing in place as prescribed Yes Experienced any changes in pain level or No management Left Footwear Right Footwear Pain Scale: 0-10 Numeric Is Patient Pain Free? Yes Yes Lower Extremity Assessment/ Foot Assessment/ Toe Nail Assessment Left -Posterior Tibial Palpable -Dorsalis Pedis Palpable -Extremity Color -Hair Growth on Legs -Hair Growth on Toes -Capillary Refill -Dependent Rubor -Blanched when Elevated -Lipodermatosclerosis -Other Deformity -Prior Foot Ulcer -Charcot Joint -Prior Amputation -Thick -Discolored -Deformed -Improper Length & Hygeine Right -Posterior Tibial Palpable -Dorsalis Pedis Palpable -Extremity Color -Hair Growth on Legs -Hair Growth on Toes -Temperature of Extremity -Capillary Refill -Dependent Rubor -Blanched when Elevated -Lipodermatosclerosis -Other Deformity -Prior Foot Ulcer -Charcot Joint -Prior Amputation -Thick -Discolored -Deformed -Improper Length & Hygeine WC - Nurse 1 - General Ulcer Measurement Start: 10/15/24 13:57 Freq: Status: Active Protocol: Activity Type Activity Date Activity User E-sign Co-sign Detail Recorded Client Recorded Date Recorded By Document 10/15/24 13:57 DL [id number] 10/15/24 14:19 DL Document 10/21/24 10:02 BMF [id number] 10/21/24 10:08 BMF Document 10/29/24 08:12 DS [id number] 10/29/24 08:20 DS Document 11/05/24 08:22 ML [id number] 11/05/24 08:24 ML 10/15/24 10/21/24 10/29/24 13:57 10:02 08:12 Wound Center Nurse 1 #2 L Grt Toe Plantar -Combined with other wound No -Current Size (cm) - Length 0.5 0.7 0.8 -Current Size (cm) - Width 0.5 0.5 0.6 -Current Size (cm) - Depth 0.3 0.3 0.3 -Total Square Cm 0.25 0.35 0.48 -Date of Last Picture (Recall this 10/21/24 10/29/24 field) -Photo Taken Yes Yes Yes -Tunneling No No -Undermining/Tunneling No No -Circular Undermining No No -Classification - Thickness Full Thickness without Exposed Support Structure -Exudate Amt Small Medium Small -Exudate Type Serosanguineous Serosanguineous Serosanguineous -Wound Margin Thickened Thickened Distinct, Outline Attached -Granulation Amt Small (1-33%) Large (67-100%) Medium (34-66%) -Granulation Quality [place] Pale,[place] -Slough/Fibrin Yes -Necrosis Amt None Present (0 Small (1-33%) Medium (34-66%) %) -Necrotic Tissue Type Adherent Slough Adherent Slough -Structure Exposed N/A -Texture (Pat-wound Skin Appearance) Callus,Scarring Assessed,Callus Assessed,Callus -Moisture (Pat-wound Skin Appearance) Dry/Scaly Assessed Assessed -Color (Pat-wound Skin Appearance) No Abnormality Assessed Assessed -Temperature (Pat-wound Skin No Abnormality No Abnormality No Abnormality Appearance) (Pt Warm) (Pt Warm) (Pt Warm) -Tenderness on Palpation (Pat-wound No No No Skin Appearance) -Ulcer Cleansing Rinsed/ Rinsed/ Soap and Water Irrigated with Irrigated with Saline Saline -Foul Odor after Cleansing No No No -Anesthetic Used 5% Lidocaine 5% Lidocaine 5% Lidocaine Gel Gel Gel Left Calf (cm) 36.7 Left Ankle (cm) 26.2 11/05/24 08:22 Wound Center Nurse 1 #2 L Grt Toe Plantar -Combined with other wound -Current Size (cm) - Length 1 -Current Size (cm) - Width 1 -Current Size (cm) - Depth 0.2 -Total Square Cm 1 -Date of Last Picture (Recall this field) -Photo Taken -Tunneling -Undermining/Tunneling -Circular Undermining -Classification - Thickness -Exudate Amt Medium -Exudate Type Serosanguineous -Wound Margin Thickened & Rolled Under -Granulation Amt Medium (34-66%) -Granulation Quality -Slough/Fibrin Yes -Necrosis Amt Medium (34-66%) -Necrotic Tissue Type Adherent Slough -Structure Exposed -Texture (Pat-wound Skin Appearance) Assessed -Moisture (Pat-wound Skin Appearance) Assessed -Color (Pat-wound Skin Appearance) Assessed -Temperature (Pat-wound Skin No Abnormality Appearance) (Pt Warm) -Tenderness on Palpation (Pat-wound No Skin Appearance) -Ulcer Cleansing Rinsed/ Irrigated with Saline -Foul Odor after Cleansing No -Anesthetic Used 5% Lidocaine Gel Left Calf (cm) Left Ankle (cm) WC - Nurse 2 - General Ulcer CM Notes Start: 10/15/24 13:57 Freq: Status: Active Protocol: Activity Type Activity Date Activity User E-sign Co-sign Detail Recorded Client Recorded Date Recorded By Document 10/15/24 14:57 [id number] 10/15/24 14:59 Document 10/21/24 10:22 [id number] 10/21/24 10:33 Document 10/29/24 08:44 [id number] 10/29/24 08:47 JF 10/15/24 10/21/24 10/29/24 14:57 10:22 08:44 Wound Center Nurse 2 #2 L Grt Toe Plantar -Time 14:58 10:22 08:44 -Correct Patient Yes Yes Yes -Correct Side, Site, Position Yes Yes Yes -Correct Procedure Yes Yes Yes -Procedure Performed Yes Yes Yes -Type of Procedure Debridement Debridement Debridement -Clinical Debridement Subcutaneous Subcutaneous Subcutaneous -Tissue Removed Subcutaneous Subcutaneous Subcutaneous -Post Debridement (cm) - Length 0.8 0.6 0.8 -Post Debridement (cm) - Width 0.8 0.6 0.8 -Post Debridement (cm) - Depth 0.2 0.3 0.2 -Total Square (Post) (cm) 0.64 0.36 0.64 -Area of Debridement (cm) - Length 0.8 0.6 0.8 -Area of Debridement (cm) - Width 0.8 0.6 0.8 -Total Square (Area) (cm) 0.64 0.36 0.64 -Tunneling No No No -Undermining/Tunneling No No No -Circular Undermining No No No -Wound/Ulcer Outcome Not Healed Not Healed Not Healed -Ulcer Cleansing Rinsed/ Rinsed/ Rinsed/ Irrigated with Irrigated with Irrigated with Saline Saline Saline -Foul Odor after Cleansing No No No -Bioengineered Tissue No No No -Bleeding Controlled with Pressure Pressure Pressure -Treatment Response Procedure Procedure Procedure Tolerated Well Tolerated Well Tolerated Well -Offloading No No No -Debridement - Subq, 1st 20sq cm Yes Yes Yes Pain Scale: 0-10 Numeric Is Patient Pain Free? Yes Yes Yes STEVEN - Nurse 3 - General Ulcer D/C NN Start: 10/15/24 13:57 Freq: Status: Active Protocol: Activity Type Activity Date Activity User E-sign Co-sign Detail Recorded Client Recorded Date Recorded By Document 10/15/24 15:13 [facility] [id number] 10/15/24 15:14 [facility] Document 10/21/24 10:33 [id number] 10/21/24 10:34 Document 10/29/24 08:55 [id number] 10/29/24 08:55 10/15/24 10/21/24 10/29/24 15:13 10:33 08:55 Wound Care Center Nurse 3 #2 L Grt Toe Plantar -Ulcer Cleansing Rinsed/ Not Cleansed Irrigated with Saline -Foul Odor after Cleansing No No -Negative Pressure Wound Therapy N/A -Primary Dressing Applied C Hydrogel -Other Dressing betadine, bandaid -Primary Dressing Covered/Secured with Dry Gauze, Dry Gauze, Secured with Secured with Tape Tape -Other Covering drsg per dl sanitation lead -Hydrogel 1 BLE -Tubular Bandage Single Layer -Size of Tubigrip Used Size D -Size D ($) 2 Treatment Response Procedure Tolerated Well Pain Scale: 0-10 Numeric Is Patient Pain Free? Yes Yes Yes WC - Visit Discharge Discharge Condition Stable Stable Stable Ambulatory Status Ambulatory Ambulatory Ambulatory Transportation Private Auto Private Auto Private Auto Accompanied by Assessment/Plan Assessment/Plan (1) Non-pressure chronic ulcer of other part of left foot with fat layer exposed: CODE(S): L97.522 - Non-pressure chronic ulcer of other part of left foot with fat layer exposed PLAN: Patient was examined and evaluated. All findings were discussed with the patient. All questions were answered to the patient's satisfaction. Excisional debridement down to including subcutaneous tissue with number 3 mm dermal curette to the full-thickness wound to plantar aspect of left hallux donewithout incident. Predebridement measurement was 0.6 x 0.5 x 0.1 cm. Postdebridement measurement is 0.8 x 0.7 x 0.2 cm. The left plantar wound was white cleaned and patted dry. Betadine paint sterile Band-Aid was applied. Patient will continue daily dressing changes as discussed. Review of the patient's arterial studies show evidence of arterial tree to left lower extremity appears patent throughout. There is appears to be stenosis of 50 to 99% of the proximal left superficial femoral artery based on velocity criteria. And patent intra-arterial stent is noted to the distal left superficial femoral artery which extends into the left popliteal artery. Will continue with booking the patient for minimally invasive surgery to remove the distal tip of the amputation site to the left great toe. All risk and benefit discussed with patient great detail. An additional manual blood pressure in office was taken and showed evidence of hypertension with a blood pressure of 196/110, recommended the patient to follow-up with his primary doctor or report to the emergency room for evaluation. Patient will follow-up in 1 week (2) Acute painful diabetic polyneuropathy: CODE(S): E11.42 - Type 2 diabetes mellitus with diabetic polyneuropathy 11/05/24 0838 <Electronically signed by Nathen Gonzalez DPM> Cosigner Signature (if applicable): CC: ~ Signed [facility] Work Phone: [phone] Progress note [facility] [address] [place] [address] Progress Note - Wound Care 11/05/2433 MR#: [id number] Acct: [id number] Name: YONI VILLALPANDO Rep #:[id number] : 1945 79 From: Nathen Chun PM PCP: Dr. Rey Greenwood MD Status:REG R CR Location: History of Present Illness Date of Service: 11/05/24 Chief Complaint: Diabetic ulceration of the left great toe History of Wound: The patient is seen on behalf of Dr. Nathen Gonzalez, Podiatric specialist, who is the patient's regular Wound Center provider. Patient's history has been previously documented by . He is under treatment for an ulceration of the plantar aspect of the left great toe. He is a known diabetic, and has a history of myocardial infarction and congestive heart failure. He denies ahistory of cerebrovascular accident, pulmonary disease, renal disease, thyroid disease, and hyperlipidemia. The patient is not currently a smoker, but formerly smoked 1 pack of cigarettes per day forapproximately 45 years. 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 He has a history of peripheral arterial occlusive disease, and indicates that 2 vascular stents have been placed in his right lower extremity, and 1 in his left lower extremity. The patient is ambulatory, but suffers from classic symptoms of intermittent claudication at short distances of ambulation. With 2 blocks of ambulation, the patient experiences calfpain, which is typically relieved by rest. Current management involves the use of Betadine topically to his left great toe ulceration. 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 Patient has seen his primarydoctor and has been takenoff some of his blood pressure medication and is showing signs of hypertension with 2 blood pressure readings while in clinic today. He is on a green pill as he says but doesnot know the name for the medicine he is taking for his blood pressure. He is off his inhaler for his COPD. He does admit to some discomfortdue to his high blood pressure today. He has been compliantwith dressing changes to the plantar wound to the left foot. He is motivated to move forward with surgical intervention. Denies trauma. Denies constitutional symptoms. Noother pedal complaints at this time. Objective Data Objective Data Vital Signs: Vital Signs Temp Pulse Resp BP O2 Del Method 97.8 F 79 15 185/112 H Room Air 11/05/24 08:22 11/05/24 08:22 11/05/24 08:22 11/05/24 08:22 10/29/24 08:12 Oxygen Delivery Method Room Air Weight: 95.254 kg Body Mass Index (BMI) 30.1 Physical Exam Narrative Vascular: DP and PT pulses palpable. CFT brisk. No erythema or proximal streaking. Skin temperatureis warm to warm with no focal increase. Neurologic: Light touch is intact. Protective sensation is absent. 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 Full-thickness wound to the plantar aspect left hallux measuring 0.8 x 0.8 x 0.2 cm. Wound base is granular with no signs of infection. Excisional debridement down to including subcutaneous tissue with number 3 mm dermal curette to thefull-thickness wound to plantar aspect of left hallux donewithout incident. Predebridement measurement was 0.6 x 0.5 x 0.1 cm. Postdebridement measurement is 0.8 x 0.7 x 0.2 cm. Musculoskeletal: Decreased range of motion to the first metatarsal phalangeal joint to the left foot. No pain on palpation to the full-thickness wound to plantar aspect of the left great toe. No painwith calf pressure. Debridement Note Debridement Note Debridement Free Text: Excisional debridement down to including subcutaneous tissue with number 3 mm dermal curette to the full-thickness wound to plantar aspect of left hallux done without incident.Predebridement measurement was 0.6x 0.5 x 0.1 cm. Postdebridement measurement is 0.8 x 0.7 x 0.2 cm. Post-Debridement Measurements and Additional Note: Post-Debridement Measurements/Treatment WC - Nurse 1 - General Ulcer Assessment Start: 10/15/24 13:57 Freq: Status: Active Protocol: STEVEN.LOWEXAusten Activity Type Activity Date Activity User E-sign Co-sign Detail Recorded Client Recorded Date Recorded By Document 10/15/24 13:57 DL [id number] 10/15/24 14:19 DL Document 10/21/24 10:02 BMF [id number] 10/21/24 10:08 BMF Edit Result 10/21/24 10:02 BMF (1) [id number] 10/21/24 10:10 BMF Document 10/29/24 08:12 DS [id number] 10/29/24 08:20 DS Document 10/29/24 08:21 DS [id number] 10/29/24 08:22 DS Document 11/05/24 08:22 ML [id number] 11/05/24 08:24 ML (1) Pulse Rate (60-100) => 80 Comment => 160/106 BP RECHK L => ARM PULSE 80 PER => MONITOR. 10/15/24 10/21/24 10/29/24 13:57 10:02 08:12 WC - Today's Visit Information Type of service Initial Visit Follow-up Visit Follow-up Visit (Physician/OUTDOOR GUIDE (Physician/OUTDOOR GUIDE ) ) Arrival Mode Ambulatory Ambulatory Ambulatory Transfer Assistance None None Patient Identification Verified (Name & Yes Yes ) Patient Requires Transmission-Based No No Precautions Safety Precautions NA Fall Prevention Height and Weight Height 5 ft 10 in Weight 95.254 kg Weight in Pounds 210.0 lbs Body Mass Index (BMI) 30.1 30.1 30.1 BMI Classification Obese Obese Obese Vital Signs Temperature (97.8 F-99.1 F) 98.2 F 98.1 F 98.7 F Temperature Source Temporal Temporal Temporal Pulse Rate (60-100) 85 80 62 Pulse Location Monitor Monitor Monitor Respiratory Rate (12-18) 18 16 18 Respiratory rate source Observation Observation Observation Oxygen Delivery Method Room Air Room Air Blood Pressure (90/60-120/80) 144/74 H 170/108 H 183/104 H Blood Pressure Mean (mm Hg) 97 128 130 Source Monitor Monitor Monitor Position Sitting Semi-Fowlers Blood Pressure Location Right Arm Left Arm Comment 160/106 BP RECHK L ARM PULSE 80 PER MONITOR. History Since Last Visit- (Skip if this is Patient's initial visit) Have you changed medications since your No Yes last visit? Any new allergies or adverse reactions No No Had a fall/change in ADL's that may No No increase risk of falls Signs or symptoms of abuse and/or No No neglect since last visit Have you been in the hospital since your No No last visit? Has dressing in place as prescribed Yes Yes Has compression in place as prescribed Yes N/A Has offloadiing in place as prescribed N/A N/A Experienced any changes in pain level or No No management Left Footwear Regular Shoe Regular Shoe Right Footwear Regular Shoe Regular Shoe Pain Scale: 0-10 Numeric Is Patient Pain Free? Yes Yes Yes Lower Extremity Assessment/ Foot Assessment/ Toe Nail Assessment Left -Posterior Tibial Palpable No -Dorsalis Pedis Palpable No -Extremity Color Hemosiderin -Hair Growth on Legs No -Hair Growth on Toes No -Capillary Refill Greater than 3 Seconds -Dependent Rubor No -Blanched when Elevated No -Lipodermatosclerosis No -Other Deformity Yes -Prior Foot Ulcer Yes -Charcot Joint No -Prior Amputation Yes -Thick Yes -Discolored Yes -Deformed Yes -Improper Length & Hygeine No Right -Posterior Tibial Palpable No -Dorsalis Pedis Palpable Yes -Extremity Color Hemosiderin -Hair Growth on Legs No -Hair Growth on Toes No -Temperature of Extremity Warm -Capillary Refill Greater than 3 Seconds -Dependent Rubor No -Blanched when Elevated No -Lipodermatosclerosis No -Other Deformity No -Prior Foot Ulcer No -Charcot Joint No -Prior Amputation No -Thick Yes -Discolored Yes -Deformed Yes -Improper Length & Hygeine No 10/29/24 11/05/24 08:21 08:22 WC - Today's Visit Information Type of service Follow-up Visit (Physician/OUTDOOR GUIDE ) Arrival Mode Ambulatory Transfer Assistance None Patient Identification Verified (Name & Yes ) Patient Requires Transmission-Based No Precautions Safety Precautions Height and Weight Height Weight Weight in Pounds Body Mass Index (BMI) 30.1 30.1 BMI Classification Obese Obese Vital Signs Temperature (97.8 F-99.1 F) 97.8 F Temperature Source Temporal Pulse Rate (60-100) 79 Pulse Location Monitor Respiratory Rate (12-18) 15 Respiratory rate source Observation Oxygen Delivery Method Blood Pressure (90/60-120/80) 175/99 H 185/112 H Blood Pressure Mean (mm Hg) 124 136 Source Monitor Monitor Position Sitting Sitting Blood Pressure Location Left Arm Right Arm Comment History Since Last Visit- (Skip if this is Patient's initial visit) Have you changed medications since your No last visit? Any new allergies or adverse reactions No Had a fall/change in ADL's that may No increase risk of falls Signs or symptoms of abuse and/or No neglect since last visit Have you been in the hospital since your No last visit? Has dressing in place as prescribed Yes Has compression in place as prescribed Yes Has offloadiing in place as prescribed Yes Experienced any changes in pain level or No management Left Footwear Right Footwear Pain Scale: 0-10 Numeric Is Patient Pain Free? Yes Yes Lower Extremity Assessment/ Foot Assessment/ Toe Nail Assessment Left -Posterior Tibial Palpable -Dorsalis Pedis Palpable -Extremity Color -Hair Growth on Legs -Hair Growth on Toes -Capillary Refill -Dependent Rubor -Blanched when Elevated -Lipodermatosclerosis -Other Deformity -Prior Foot Ulcer -Charcot Joint -Prior Amputation -Thick -Discolored -Deformed -Improper Length & Hygeine Right -Posterior Tibial Palpable -Dorsalis Pedis Palpable -Extremity Color -Hair Growth on Legs -Hair Growth on Toes -Temperature of Extremity -Capillary Refill -Dependent Rubor -Blanched when Elevated -Lipodermatosclerosis -Other Deformity -Prior Foot Ulcer -Charcot Joint -Prior Amputation -Thick -Discolored -Deformed -Improper Length & Hygeine WC - Nurse 1 - General Ulcer Measurement Start: 10/15/24 13:57 Freq: Status: Active Protocol: Activity Type Activity Date Activity User E-sign Co-sign Detail Recorded Client Recorded Date Recorded By Document 10/15/24 13:57 DL [id number] 10/15/24 14:19 DL Document 10/21/24 10:02 BMF [id number] 10/21/24 10:08 BMF Document 10/29/24 08:12 DS [id number] 10/29/24 08:20 DS Document 11/05/24 08:22 ML [id number] 11/05/24 08:24 ML 10/15/24 10/21/24 10/29/24 13:57 10:02 08:12 Wound Center Nurse 1 #2 L Grt Toe Plantar -Combined with other wound No -Current Size (cm) - Length 0.5 0.7 0.8 -Current Size (cm) - Width 0.5 0.5 0.6 -Current Size (cm) - Depth 0.3 0.3 0.3 -Total Square Cm 0.25 0.35 0.48 -Date of Last Picture (Recall this 10/21/24 10/29/24 field) -Photo Taken Yes Yes Yes -Tunneling No No -Undermining/Tunneling No No -Circular Undermining No No -Classification - Thickness Full Thickness without Exposed Support Structure -Exudate Amt Small Medium Small -Exudate Type Serosanguineous Serosanguineous Serosanguineous -Wound Margin Thickened Thickened Distinct, Outline Attached -Granulation Amt Small (1-33%) Large (67-100%) Medium (34-66%) -Granulation Quality [place] Pale,[place] -Slough/Fibrin Yes -Necrosis Amt None Present (0 Small (1-33%) Medium (34-66%) %) -Necrotic Tissue Type Adherent Slough Adherent Slough -Structure Exposed N/A -Texture (Pat-wound Skin Appearance) Callus,Scarring Assessed,Callus Assessed,Callus -Moisture (Pat-wound Skin Appearance) Dry/Scaly Assessed Assessed -Color (Pat-wound Skin Appearance) No Abnormality Assessed Assessed -Temperature (Pat-wound Skin No Abnormality No Abnormality No Abnormality Appearance) (Pt Warm) (Pt Warm) (Pt Warm) -Tenderness on Palpation (Pat-wound No No No Skin Appearance) -Ulcer Cleansing Rinsed/ Rinsed/ Soap and Water Irrigated with Irrigated with Saline Saline -Foul Odor after Cleansing No No No -Anesthetic Used 5% Lidocaine 5% Lidocaine 5% Lidocaine Gel Gel Gel Left Calf (cm) 36.7 Left Ankle (cm) 26.2 11/05/24 08:22 Wound Center Nurse 1 #2 L Grt Toe Plantar -Combined with other wound -Current Size (cm) - Length 1 -Current Size (cm) - Width 1 -Current Size (cm) - Depth 0.2 -Total Square Cm 1 -Date of Last Picture (Recall this field) -Photo Taken -Tunneling -Undermining/Tunneling -Circular Undermining -Classification - Thickness -Exudate Amt Medium -Exudate Type Serosanguineous -Wound Margin Thickened & Rolled Under -Granulation Amt Medium (34-66%) -Granulation Quality -Slough/Fibrin Yes -Necrosis Amt Medium (34-66%) -Necrotic Tissue Type Adherent Slough -Structure Exposed -Texture (Pat-wound Skin Appearance) Assessed -Moisture (Pat-wound Skin Appearance) Assessed -Color (Pat-wound Skin Appearance) Assessed -Temperature (Pat-wound Skin No Abnormality Appearance) (Pt Warm) -Tenderness on Palpation (Pat-wound No Skin Appearance) -Ulcer Cleansing Rinsed/ Irrigated with Saline -Foul Odor after Cleansing No -Anesthetic Used 5% Lidocaine Gel Left Calf (cm) Left Ankle (cm) WC - Nurse 2 - General Ulcer CM Notes Start: 10/15/24 13:57 Freq: Status: Active Protocol: Activity Type Activity Date Activity User E-sign Co-sign Detail Recorded Client Recorded Date Recorded By Document 10/15/24 14:57 [id number] 10/15/24 14:59 Document 10/21/24 10:22 [id number] 10/21/24 10:33 Document 10/29/24 08:44 [id number] 10/29/24 08:47 10/15/24 10/21/24 10/29/24 14:57 10:22 08:44 Wound Center Nurse 2 #2 L Grt Toe Plantar -Time 14:58 10:22 08:44 -Correct Patient Yes Yes Yes -Correct Side, Site, Position Yes Yes Yes -Correct Procedure Yes Yes Yes -Procedure Performed Yes Yes Yes -Type of Procedure Debridement Debridement Debridement -Clinical Debridement Subcutaneous Subcutaneous Subcutaneous -Tissue Removed Subcutaneous Subcutaneous Subcutaneous -Post Debridement (cm) - Length 0.8 0.6 0.8 -Post Debridement (cm) - Width 0.8 0.6 0.8 -Post Debridement (cm) - Depth 0.2 0.3 0.2 -Total Square (Post) (cm) 0.64 0.36 0.64 -Area of Debridement (cm) - Length 0.8 0.6 0.8 -Area of Debridement (cm) - Width 0.8 0.6 0.8 -Total Square (Area) (cm) 0.64 0.36 0.64 -Tunneling No No No -Undermining/Tunneling No No No -Circular Undermining No No No -Wound/Ulcer Outcome Not Healed Not Healed Not Healed -Ulcer Cleansing Rinsed/ Rinsed/ Rinsed/ Irrigated with Irrigated with Irrigated with Saline Saline Saline -Foul Odor after Cleansing No No No -Bioengineered Tissue No No No -Bleeding Controlled with Pressure Pressure Pressure -Treatment Response Procedure Procedure Procedure Tolerated Well Tolerated Well Tolerated Well -Offloading No No No -Debridement - Subq, 1st 20sq cm Yes Yes Yes Pain Scale: 0-10 Numeric Is Patient Pain Free? Yes Yes Yes - Nurse 3 - General Ulcer D/C NN Start: 10/15/24 13:57 Freq: Status: Active Protocol: Activity Type Activity Date Activity User E-sign Co-sign Detail Recorded Client Recorded Date Recorded By Document 10/15/24 15:13 [facility] [id number] 10/15/24 15:14 [facility] Document 10/21/24 10:33 [id number] 10/21/24 10:34 Document 10/29/24 08:55 [id number] 10/29/24 08:55 10/15/24 10/21/24 10/29/24 15:13 10:33 08:55 Wound Care Center Nurse 3 #2 L Grt Toe Plantar -Ulcer Cleansing Rinsed/ Not Cleansed Irrigated with Saline -Foul Odor after Cleansing No No -Negative Pressure Wound Therapy N/A -Primary Dressing Applied C Hydrogel -Other Dressing betadine, bandaid -Primary Dressing Covered/Secured with Dry Gauze, Dry Gauze, Secured with Secured with Tape Tape -Other Covering drsg per dl sanitation lead -Hydrogel 1 BLE -Tubular Bandage Single Layer -Size of Tubigrip Used Size D -Size D ($) 2 Treatment Response Procedure Tolerated Well Pain Scale: 0-10 Numeric Is Patient Pain Free? Yes Yes Yes WC - Visit Discharge Discharge Condition Stable Stable Stable Ambulatory Status Ambulatory Ambulatory Ambulatory Transportation Private Auto Private Auto Private Auto Accompanied by Assessment/Plan Assessment/Plan (1) Non-pressure chronic ulcer of other part of left foot with fat layer exposed: CODE(S): L97.522 - Non-pressure chronic ulcer of other part of left foot with fat layer exposed PLAN: Patient was examined and evaluated. All findings were discussed with the patient. All questions were answered to the patient's satisfaction. Excisional debridement down to including subcutaneous tissue with number 3 mm dermal curette to thefull-thickness wound to plantar aspect of left hallux donewithout incident. Predebridement measurement was 0.6 x 0.5 x 0.1 cm. Postdebridement measurement is 0.8 x 0.7 x 0.2 cm. The left plantar wound was white cleaned and patted dry. Betadine paint sterile Band-Aid was applied. Patient will continue daily dressing changes as discussed. Review of the patient's arterial studies show evidence of arterial tree to left lower extremity appears patent throughout. There is appears to be stenosis of 50 to 99% of the proximal left superficial femoral artery based on velocity criteria. And patent intra-arterial stent is noted to the distal left superficial femoral artery which extends into the left popliteal artery. Will continue with booking the patient for minimally invasive surgery to remove the distal tip of the amputation site to the left great toe. All risk and benefit discussed with patient great detail. An additional manual blood pressure in office was taken and showed evidence of hypertension with a blood pressure of 196/110, recommended the patient to follow-up with his primary doctor or report [facility] emergency room for evaluation. Patient will follow-up in 1 week (2) Acute painful diabetic polyneuropathy: CODE(S): E11.42 - Type 2 diabetes mellitus with diabetic polyneuropathy 11/05/24 0838 Cosigner Signature (if applicable): CC: ~ Signed [facility]09-17-2025 Progress note Author Nathen Gonzalez [facility] Note Date/Time October 29, 2024 11:11am [facility] [address] [place] [address] Progress Note - Wound Care 10/29/24 1108 MR#: [id number] Acct: [id number] Name: YONI VILLALPANDO Rep #:[id number] : 1945 79 From: Nathen LANZA PCP: Dr. Rey Greenwood MD Status:REG R CR Location: [facility] History of Present Illness Date of Service: 10/29/24 Chief Complaint: Diabetic ulceration of the left great toe History of Wound: The patient is seen on behalf of Dr. Nathen Gonzalez, Podiatric specialist, who is the patient's regular Wound Center provider. Patient's history has been previously documented by Dr. Gonzalez. He is under treatment for an ulceration of the plantar aspect of the left great toe. He is a known diabetic, and has a history of myocardial infarction and congestive heart failure. He denies a history of cerebrovascular accident, pulmonary disease, renal disease, thyroid disease, and hyperlipidemia. The patient is not currently a smoker, but formerly smoked 1 pack of cigarettes per day for approximately 45 years. 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 He has a history of peripheral arterial occlusive disease, and indicates that 2 vascular stents have been placed in his right lower extremity, and 1 in his left lower extremity. The patient is ambulatory, but suffers from classic symptoms of intermittent claudication at short distances of ambulation. With 2 blocks of ambulation, the patient experiences calf pain, which is typically relieved by rest. Current management involves the use of Betadine topically to his left great toe ulceration. 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 Subjective Subjective Patient is a 79-year-old diabetic male presenting to wound care center follow-upevaluation of full-thickness wound the plantar aspect of the left hallux status post Symes amputation. Patient did get his x-rays at [facility]. He has been doing dressing changes as discussed. He denies trauma. Denies constitutional symptoms. No other pedal complaints at this time. Objective Data Objective Data Vital Signs: Vital Signs Temp Pulse Resp BP O2 Del Method 98.7 F 62 18 175/99 H Room Air 10/29/24 08:12 10/29/24 08:12 10/29/24 08:12 10/29/24 08:21 10/29/24 08:12 Oxygen Delivery Method Room Air Weight: 95.254 kg Body Mass Index (BMI) 30.1 Physical Exam Narrative Vascular: DP and PT pulses palpable. CFT brisk. No erythema or proximal streaking. Skin temperature is warm to warm with no focal increase. Neurologic: Light touch is intact. Protective sensation is absent. 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 Full-thickness wound to the plantar aspect left hallux measuring 0.8 x 0.8 x 0.2 cm. Wound base is granular with no signs of infection. Excisional debridement down to including subcutaneous tissue with number 3 mm dermal curette to the full-thickness wound to plantar aspect of left hallux donewithout incident. Predebridement measurement was 0.5 x 0.4 x 0.1 cm. Postdebridement measurement is 0.8 x 0.8 x 0.2 cm. Musculoskeletal: Decreased range of motion to the first metatarsal phalangeal joint to the left foot. No pain on palpation to the full-thickness wound to plantar aspect of the left great toe. No pain with calf pressure. Debridement Note Debridement Note Debridement Free Text: Excisional debridement down to including subcutaneous tissue with number 3 mm dermal curette to the full-thickness wound to plantar aspect of left hallux done without incident. Predebridement measurement was 0.5x 0.4 x 0.1 cm. Postdebridement measurement is 0.8 x 0.8 x 0.2 cm. Post-Debridement Measurements and Additional Note: Post-Debridement Measurements/Treatment WC - Nurse 1 - General Ulcer Assessment Start: 10/15/24 13:57 Freq: Status: Active Protocol: YOUNG Activity Type Activity Date Activity User E-sign Co-sign Detail Recorded Client Recorded Date Recorded By Document 10/15/24 13:57 DL [id number] 10/15/24 14:19 DL Document 10/21/24 10:02 BMF [id number] 10/21/24 10:08 BMF Edit Result 10/21/24 10:02 BMF (1) [id number] 10/21/24 10:10 BMF Document 10/29/24 08:12 DS [id number] 10/29/24 08:20 DS Document 10/29/24 08:21 DS [id number] 10/29/24 08:22 DS (1) Pulse Rate (60-100) => 80 Comment => 160/106 BP RECHK L => ARM PULSE 80 PER => MONITOR. 10/15/24 10/21/24 10/29/24 13:57 10:02 08:12 WC - Today's Visit Information Type of service Initial Visit Follow-up Visit Follow-up Visit (Physician/OUTDOOR GUIDE (Physician/OUTDOOR GUIDE ) ) Arrival Mode Ambulatory Ambulatory Ambulatory Transfer Assistance None None Patient Identification Verified (Name & Yes Yes ) Patient Requires Transmission-Based No No Precautions Safety Precautions NA Fall Prevention Height and Weight Height 5 ft 10 in Weight 95.254 kg Weight in Pounds 210.0 lbs Body Mass Index (BMI) 30.1 30.1 30.1 BMI Classification Obese Obese Obese Vital Signs Temperature (97.8 F-99.1 F) 98.2 F 98.1 F 98.7 F Temperature Source Temporal Temporal Temporal Pulse Rate (60-100) 85 80 62 Pulse Location Monitor Monitor Monitor Respiratory Rate (12-18) 18 16 18 Respiratory rate source Observation Observation Observation Oxygen Delivery Method Room Air Room Air Blood Pressure (90/60-120/80) 144/74 H 170/108 H 183/104 H Blood Pressure Mean (mm Hg) 97 128 130 Source Monitor Monitor Monitor Position Sitting Semi-Fowlers Blood Pressure Location Right Arm Left Arm Comment 160/106 BP RECHK L ARM PULSE 80 PER MONITOR. History Since Last Visit- (Skip if this is Patient's initial visit) Have you changed medications since your No Yes last visit? Any new allergies or adverse reactions No No Had a fall/change in ADL's that may No No increase risk of falls Signs or symptoms of abuse and/or No No neglect since last visit Have you been in the hospital since your No No last visit? Has dressing in place as prescribed Yes Yes Has compression in place as prescribed Yes N/A Has offloadiing in place as prescribed N/A N/A Experienced any changes in pain level or No No management Left Footwear Regular Shoe Regular Shoe Right Footwear Regular Shoe Regular Shoe Pain Scale: 0-10 Numeric Is Patient Pain Free? Yes Yes Yes Lower Extremity Assessment/ Foot Assessment/ Toe Nail Assessment Left -Posterior Tibial Palpable No -Dorsalis Pedis Palpable No -Extremity Color Hemosiderin -Hair Growth on Legs No -Hair Growth on Toes No -Capillary Refill Greater than 3 Seconds -Dependent Rubor No -Blanched when Elevated No -Lipodermatosclerosis No -Other Deformity Yes -Prior Foot Ulcer Yes -Charcot Joint No -Prior Amputation Yes -Thick Yes -Discolored Yes -Deformed Yes -Improper Length & Hygeine No Right -Posterior Tibial Palpable No -Dorsalis Pedis Palpable Yes -Extremity Color Hemosiderin -Hair Growth on Legs No -Hair Growth on Toes No -Temperature of Extremity Warm -Capillary Refill Greater than 3 Seconds -Dependent Rubor No -Blanched when Elevated No -Lipodermatosclerosis No -Other Deformity No -Prior Foot Ulcer No -Charcot Joint No -Prior Amputation No -Thick Yes -Discolored Yes -Deformed Yes -Improper Length & Hygeine No 10/29/24 08:21 WC - Today's Visit Information Type of service Arrival Mode Transfer Assistance Patient Identification Verified (Name & ) Patient Requires Transmission-Based Precautions Safety Precautions Height and Weight Height Weight Weight in Pounds Body Mass Index (BMI) 30.1 BMI Classification Obese Vital Signs Temperature (97.8 F-99.1 F) Temperature Source Pulse Rate (60-100) Pulse Location Respiratory Rate (12-18) Respiratory rate source Oxygen Delivery Method Blood Pressure (90/60-120/80) 175/99 H Blood Pressure Mean (mm Hg) 124 Source Monitor Position Sitting Blood Pressure Location Left Arm Comment History Since Last Visit- (Skip if this is Patient's initial visit) Have you changed medications since your last visit? Any new allergies or adverse reactions Had a fall/change in ADL's that may increase risk of falls Signs or symptoms of abuse and/or neglect since last visit Have you been in the hospital since your last visit? Has dressing in place as prescribed Has compression in place as prescribed Has offloadiing in place as prescribed Experienced any changes in pain level or management Left Footwear Right Footwear Pain Scale: 0-10 Numeric Is Patient Pain Free? Yes Lower Extremity Assessment/ Foot Assessment/ Toe Nail Assessment Left -Posterior Tibial Palpable -Dorsalis Pedis Palpable -Extremity Color -Hair Growth on Legs -Hair Growth on Toes -Capillary Refill -Dependent Rubor -Blanched when Elevated -Lipodermatosclerosis -Other Deformity -Prior Foot Ulcer -Charcot Joint -Prior Amputation -Thick -Discolored -Deformed -Improper Length & Hygeine Right -Posterior Tibial Palpable -Dorsalis Pedis Palpable -Extremity Color -Hair Growth on Legs -Hair Growth on Toes -Temperature of Extremity -Capillary Refill -Dependent Rubor -Blanched when Elevated -Lipodermatosclerosis -Other Deformity -Prior Foot Ulcer -Charcot Joint -Prior Amputation -Thick -Discolored -Deformed -Improper Length & Hygeine WC - Nurse 1 - General Ulcer Measurement Start: 10/15/24 13:57 Freq: Status: Active Protocol: Activity Type Activity Date Activity User E-sign Co-sign Detail Recorded Client Recorded Date Recorded By Document 10/15/24 13:57 DL [id number] 10/15/24 14:19 DL Document 10/21/24 10:02 BMF [id number] 10/21/24 10:08 BMF Document 10/29/24 08:12 DS [id number] 10/29/24 08:20 DS 10/15/24 10/21/24 10/29/24 13:57 10:02 08:12 Wound Center Nurse 1 #2 L Grt Toe Plantar -Combined with other wound No -Current Size (cm) - Length 0.5 0.7 0.8 -Current Size (cm) - Width 0.5 0.5 0.6 -Current Size (cm) - Depth 0.3 0.3 0.3 -Total Square Cm 0.25 0.35 0.48 -Date of Last Picture (Recall this 10/21/24 10/29/24 field) -Photo Taken Yes Yes Yes -Tunneling No No -Undermining/Tunneling No No -Circular Undermining No No -Classification - Thickness Full Thickness without Exposed Support Structure -Exudate Amt Small Medium Small -Exudate Type Serosanguineous Serosanguineous Serosanguineous -Wound Margin Thickened Thickened Distinct, Outline Attached -Granulation Amt Small (1-33%) Large (67-100%) Medium (34-66%) -Granulation Quality [place] Pale,[place] -Slough/Fibrin Yes -Necrosis Amt None Present (0 Small (1-33%) Medium (34-66%) %) -Necrotic Tissue Type Adherent Slough Adherent Slough -Structure Exposed N/A -Texture (Pat-wound Skin Appearance) Callus,Scarring Assessed,Callus Assessed,Callus -Moisture (Pat-wound Skin Appearance) Dry/Scaly Assessed Assessed -Color (Pat-wound Skin Appearance) No Abnormality Assessed Assessed -Temperature (Pat-wound Skin No Abnormality No Abnormality No Abnormality Appearance) (Pt Warm) (Pt Warm) (Pt Warm) -Tenderness on Palpation (Pat-wound No No No Skin Appearance) -Ulcer Cleansing Rinsed/ Rinsed/ Soap and Water Irrigated with Irrigated with Saline Saline -Foul Odor after Cleansing No No No -Anesthetic Used 5% Lidocaine 5% Lidocaine 5% Lidocaine Gel Gel Gel Left Calf (cm) 36.7 Left Ankle (cm) 26.2 WC - Nurse 2 - General Ulcer CM Notes Start: 10/15/24 13:57 Freq: Status: Active Protocol: Activity Type Activity Date Activity User E-sign Co-sign Detail Recorded Client Recorded Date Recorded By Document 10/15/24 14:57 [id number] 10/15/24 14:59 Document 10/21/24 10:22 [id number] 10/21/24 10:33 Document 10/29/24 08:44 [id number] 10/29/24 08:47 10/15/24 10/21/24 10/29/24 14:57 10:22 08:44 Wound Center Nurse 2 #2 L Grt Toe Plantar -Time 14:58 10:22 08:44 -Correct Patient Yes Yes Yes -Correct Side, Site, Position Yes Yes Yes -Correct Procedure Yes Yes Yes -Procedure Performed Yes Yes Yes -Type of Procedure Debridement Debridement Debridement -Clinical Debridement Subcutaneous Subcutaneous Subcutaneous -Tissue Removed Subcutaneous Subcutaneous Subcutaneous -Post Debridement (cm) - Length 0.8 0.6 0.8 -Post Debridement (cm) - Width 0.8 0.6 0.8 -Post Debridement (cm) - Depth 0.2 0.3 0.2 -Total Square (Post) (cm) 0.64 0.36 0.64 -Area of Debridement (cm) - Length 0.8 0.6 0.8 -Area of Debridement (cm) - Width 0.8 0.6 0.8 -Total Square (Area) (cm) 0.64 0.36 0.64 -Tunneling No No No -Undermining/Tunneling No No No -Circular Undermining No No No -Wound/Ulcer Outcome Not Healed Not Healed Not Healed -Ulcer Cleansing Rinsed/ Rinsed/ Rinsed/ Irrigated with Irrigated with Irrigated with Saline Saline Saline -Foul Odor after Cleansing No No No -Bioengineered Tissue No No No -Bleeding Controlled with Pressure Pressure Pressure -Treatment Response Procedure Procedure Procedure Tolerated Well Tolerated Well Tolerated Well -Offloading No No No -Debridement - Subq, 1st 20sq cm Yes Yes Yes Pain Scale: 0-10 Numeric Is Patient Pain Free? Yes Yes Yes - Nurse 3 - General Ulcer D/C NN Start: 10/15/24 13:57 Freq: Status: Active Protocol: Activity Type Activity Date Activity User E-sign Co-sign Detail Recorded Client Recorded Date Recorded By Document 10/15/24 15:13 [facility] [id number] 10/15/24 15:14 BM Document 10/21/24 10:33 [id number] 10/21/24 10:34 Document 10/29/24 08:55 [id number] 10/29/24 08:55 10/15/24 10/21/24 10/29/24 15:13 10:33 08:55 Wound Care Center Nurse 3 #2 L Grt Toe Plantar -Ulcer Cleansing Rinsed/ Not Cleansed Irrigated with Saline -Foul Odor after Cleansing No No -Negative Pressure Wound Therapy N/A -Primary Dressing Applied C Hydrogel -Other Dressing betadine, bandaid -Primary Dressing Covered/Secured with Dry Gauze, Dry Gauze, Secured with Secured with Tape Tape -Other Covering drsg per dl sanitation lead -Hydrogel 1 BLE -Tubular Bandage Single Layer -Size of Tubigrip Used Size D -Size D ($) 2 Treatment Response Procedure Tolerated Well Pain Scale: 0-10 Numeric Is Patient Pain Free? Yes Yes Yes - Visit Discharge Discharge Condition Stable Stable Stable Ambulatory Status Ambulatory Ambulatory Ambulatory Transportation Private Auto Private Auto Private Auto Accompanied by Assessment/Plan Assessment/Plan (1) Non-pressure chronic ulcer of other part of left foot with fat layer exposed: CODE(S): L97.522 - Non-pressure chronic ulcer of other part of left foot with fat layer exposed PLAN: Patient was examined and evaluated. All findings were discussed with the patient. All questions were answered to the patient's satisfaction. Excisional debridement down to including subcutaneous tissue with number 3 mm dermal curette to the full-thickness wound to plantar aspect of left hallux donewithout incident. Predebridement measurement was 0.5 x 0.4 x 0.1 cm. Postdebridement measurement is 0.8 x 0.8 x 0.2 cm. The area was wiped plain andpatted dry. Betadine paint and sterile Band-Aid was applied. Reviewed the patient's radiographs show concern for a osteophyte to the plantar aspect of the amputation site to the left hallux. Will plan for booking the patient for minimally invasive surgery to bur down the bony prominence that is most likely causing the patient's wound. Risk and benefits discussed with the patient in great detail. Patient is agreeable to move forward with elective surgery. Past vascular history has been sent and uploaded into the patient's chart and will review prior to surgery. Patient will follow-up in 1 week (2) Acute painful diabetic polyneuropathy: CODE(S): E11.42 - Type 2 diabetes mellitus with diabetic polyneuropathy 10/29/24 1111 <Electronically signed by Nathen Gonzalez DPDavide> Cosigner Signature (if applicable): CC: ~ Signed [facility] Work Phone: [phone] Progress note [facility] [address] [place] [address] Progress Note - Wound Care 10/29/24 1108 MR#: [id number] Acct: [id number] Name: YONI VILLALPANDO Rep #:[id number] : 1945 79 From: Nathen Chun PM PCP: Dr. Rey Greenwood MD Status:REG R CR Location: [facility] History of Present Illness Date of Service: 10/29/24 Chief Complaint: Diabetic ulceration of the left great toe History of Wound: The patient is seen on behalf of Dr. Nathen Gonzalez, Podiatric specialist, who is the patient's regular Wound Center provider. Patient's history has been previously documented by . He is under treatment for an ulceration of the plantar aspect of the left great toe. He is a known diabetic, and has a history of myocardial infarction and congestive heart failure. He denies ahistory of cerebrovascular accident, pulmonary disease, renal disease, thyroid disease, and hyperlipidemia. The patient is not currently a smoker, but formerly smoked 1 pack of cigarettes per day forapproximately 45 years. 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 He has a history of peripheral arterial occlusive disease, and indicates that 2 vascular stents have been placed in his right lower extremity, and 1 in his left lower extremity. The patient is ambulatory, but suffers from classic symptoms of intermittent claudication at short distances of ambulation. With 2 blocks of ambulation, the patient experiences calfpain, which is typically relieved by rest. Current management involves the use of Betadine topically to his left great toe ulceration. 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 Subjective Subjective Patient is a 79-year-old diabetic male presenting to wound care center follow- upevaluation of full-thickness wound the plantar aspect of the left hallux status post Symes amputation. Patient did get his x-rays at [facility]. He has been doing dressing changes as discussed. He deniestrauma. Denies constitutional symptoms. No other pedal complaints at this time. Objective Data Objective Data Vital Signs: Vital Signs Temp Pulse Resp BP O2 Del Method 98.7 F 62 18 175/99 H Room Air 10/29/24 08:12 10/29/24 08:12 10/29/24 08:12 10/29/24 08:21 10/29/24 08:12 Oxygen Delivery Method Room Air Weight: 95.254 kg Body Mass Index (BMI) 30.1 Physical Exam Narrative Vascular: DP and PT pulses palpable. CFT brisk. No erythema or proximal streaking. Skin temperatureis warm to warm with no focal increase. Neurologic: Light touch is intact. Protective sensation is absent. 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 Full-thickness wound to the plantar aspect left hallux measuring 0.8 x 0.8 x 0.2 cm. Wound base is granular with no signs of infection. Excisional debridement down to including subcutaneous tissue with number 3 mm dermal curette to thefull-thickness wound to plantar aspect of left hallux donewithout incident. Predebridement measurement was 0.5 x 0.4 x 0.1 cm. Postdebridement measurement is 0.8 x 0.8 x 0.2 cm. Musculoskeletal: Decreased range of motion to the first metatarsal phalangeal joint to the left foot. No pain on palpation to the full-thickness wound to plantar aspect of the left great toe. No painwith calf pressure. Debridement Note Debridement Note Debridement Free Text: Excisional debridement down to including subcutaneous tissue with number 3 mm dermal curette to the full-thickness wound to plantar aspect of left hallux done without incident.Predebridement measurement was 0.5x 0.4 x 0.1 cm. Postdebridement measurement is 0.8 x 0.8 x 0.2 cm. Post-Debridement Measurements and Additional Note: Post-Debridement Measurements/Treatment WC - Nurse 1 - General Ulcer Assessment Start: 10/15/24 13:57 Freq: Status: Active Protocol: STEVEN.[employer]en Activity Type Activity Date Activity User E-sign Co-sign Detail Recorded Client Recorded Date Recorded By Document 10/15/24 13:57 DL [id number] 10/15/24 14:19 DL Document 10/21/24 10:02 BMF [id number] 10/21/24 10:08 BMF Edit Result 10/21/24 10:02 BMF (1) [id number] 10/21/24 10:10 BMF Document 10/29/24 08:12 DS [id number] 10/29/24 08:20 DS Document 10/29/24 08:21 DS [id number] 10/29/24 08:22 DS (1) Pulse Rate (60-100) => 80 Comment => 160/106 BP RECHK L => ARM PULSE 80 PER => MONITOR. 10/15/24 10/21/24 10/29/24 13:57 10:02 08:12 - Today's Visit Information Type of service Initial Visit Follow-up Visit Follow-up Visit (Physician/OUTDOOR GUIDE (Physician/OUTDOOR GUIDE ) ) Arrival Mode Ambulatory Ambulatory Ambulatory Transfer Assistance None None Patient Identification Verified (Name & Yes Yes ) Patient Requires Transmission-Based No No Precautions Safety Precautions NA Fall Prevention Height and Weight Height 5 ft 10 in Weight 95.254 kg Weight in Pounds 210.0 lbs Body Mass Index (BMI) 30.1 30.1 30.1 BMI Classification Obese Obese Obese Vital Signs Temperature (97.8 F-99.1 F) 98.2 F 98.1 F 98.7 F Temperature Source Temporal Temporal Temporal Pulse Rate (60-100) 85 80 62 Pulse Location Monitor Monitor Monitor Respiratory Rate (12-18) 18 16 18 Respiratory rate source Observation Observation Observation Oxygen Delivery Method Room Air Room Air Blood Pressure (90/60-120/80) 144/74 H 170/108 H 183/104 H Blood Pressure Mean (mm Hg) 97 128 130 Source Monitor Monitor Monitor Position Sitting Semi-Fowlers Blood Pressure Location Right Arm Left Arm Comment 160/106 BP RECHK L ARM PULSE 80 PER MONITOR. History Since Last Visit- (Skip if this is Patient's initial visit) Have you changed medications since your No Yes last visit? Any new allergies or adverse reactions No No Had a fall/change in ADL's that may No No increase risk of falls Signs or symptoms of abuse and/or No No neglect since last visit Have you been in the hospital since your No No last visit? Has dressing in place as prescribed Yes Yes Has compression in place as prescribed Yes N/A Has offloadiing in place as prescribed N/A N/A Experienced any changes in pain level or No No management Left Footwear Regular Shoe Regular Shoe Right Footwear Regular Shoe Regular Shoe Pain Scale: 0-10 Numeric Is Patient Pain Free? Yes Yes Yes Lower Extremity Assessment/ Foot Assessment/ Toe Nail Assessment Left -Posterior Tibial Palpable No -Dorsalis Pedis Palpable No -Extremity Color Hemosiderin -Hair Growth on Legs No -Hair Growth on Toes No -Capillary Refill Greater than 3 Seconds -Dependent Rubor No -Blanched when Elevated No -Lipodermatosclerosis No -Other Deformity Yes -Prior Foot Ulcer Yes -Charcot Joint No -Prior Amputation Yes -Thick Yes -Discolored Yes -Deformed Yes -Improper Length & Hygeine No Right -Posterior Tibial Palpable No -Dorsalis Pedis Palpable Yes -Extremity Color Hemosiderin -Hair Growth on Legs No -Hair Growth on Toes No -Temperature of Extremity Warm -Capillary Refill Greater than 3 Seconds -Dependent Rubor No -Blanched when Elevated No -Lipodermatosclerosis No -Other Deformity No -Prior Foot Ulcer No -Charcot Joint No -Prior Amputation No -Thick Yes -Discolored Yes -Deformed Yes -Improper Length & Hygeine No 10/29/24 08:21 WC - Today's Visit Information Type of service Arrival Mode Transfer Assistance Patient Identification Verified (Name & ) Patient Requires Transmission-Based Precautions Safety Precautions Height and Weight Height Weight Weight in Pounds Body Mass Index (BMI) 30.1 BMI Classification Obese Vital Signs Temperature (97.8 F-99.1 F) Temperature Source Pulse Rate (60-100) Pulse Location Respiratory Rate (12-18) Respiratory rate source Oxygen Delivery Method Blood Pressure (90/60-120/80) 175/99 H Blood Pressure Mean (mm Hg) 124 Source Monitor Position Sitting Blood Pressure Location Left Arm Comment History Since Last Visit- (Skip if this is Patient's initial visit) Have you changed medications since your last visit? Any new allergies or adverse reactions Had a fall/change in ADL's that may increase risk of falls Signs or symptoms of abuse and/or neglect since last visit Have you been in the hospital since your last visit? Has dressing in place as prescribed Has compression in place as prescribed Has offloadiing in place as prescribed Experienced any changes in pain level or management Left Footwear Right Footwear Pain Scale: 0-10 Numeric Is Patient Pain Free? Yes Lower Extremity Assessment/ Foot Assessment/ Toe Nail Assessment Left -Posterior Tibial Palpable -Dorsalis Pedis Palpable -Extremity Color -Hair Growth on Legs -Hair Growth on Toes -Capillary Refill -Dependent Rubor -Blanched when Elevated -Lipodermatosclerosis -Other Deformity -Prior Foot Ulcer -Charcot Joint -Prior Amputation -Thick -Discolored -Deformed -Improper Length & Hygeine Right -Posterior Tibial Palpable -Dorsalis Pedis Palpable -Extremity Color -Hair Growth on Legs -Hair Growth on Toes -Temperature of Extremity -Capillary Refill -Dependent Rubor -Blanched when Elevated -Lipodermatosclerosis -Other Deformity -Prior Foot Ulcer -Charcot Joint -Prior Amputation -Thick -Discolored -Deformed -Improper Length & Hygeine WC - Nurse 1 - General Ulcer Measurement Start: 10/15/24 13:57 Freq: Status: Active Protocol: Activity Type Activity Date Activity User E-sign Co-sign Detail Recorded Client Recorded Date Recorded By Document 10/15/24 13:57 DL [id number] 10/15/24 14:19 DL Document 10/21/24 10:02 BMF [id number] 10/21/24 10:08 BMF Document 10/29/24 08:12 DS [id number] 10/29/24 08:20 DS 10/15/24 10/21/2425 13:57 10:02 08:12 Wound Center Nurse 1 #2 L Grt Toe Plantar -Combined with other wound No -Current Size (cm) - Length 0.5 0.7 0.8 -Current Size (cm) - Width 0.5 0.5 0.6 -Current Size (cm) - Depth 0.3 0.3 0.3 -Total Square Cm 0.25 0.35 0.48 -Date of Last Picture (Recall this 10/21/24 10/29/24 field) -Photo Taken Yes Yes Yes -Tunneling No No -Undermining/Tunneling No No -Circular Undermining No No -Classification - Thickness Full Thickness without Exposed Support Structure -Exudate Amt Small Medium Small -Exudate Type Serosanguineous Serosanguineous Serosanguineous -Wound Margin Thickened Thickened Distinct, Outline Attached -Granulation Amt Small (1-33%) Large (67-100%) Medium (34-66%) -Granulation Quality [place] Pale,[place] -Slough/Fibrin Yes -Necrosis Amt None Present (0 Small (1-33%) Medium (34-66%) %) -Necrotic Tissue Type Adherent Slough Adherent Slough -Structure Exposed N/A -Texture (Pat-wound Skin Appearance) Callus,Scarring Assessed,Callus Assessed,Callus -Moisture (Pat-wound Skin Appearance) Dry/Scaly Assessed Assessed -Color (Pat-wound Skin Appearance) No Abnormality Assessed Assessed -Temperature (Pat-wound Skin No Abnormality No Abnormality No Abnormality Appearance) (Pt Warm) (Pt Warm) (Pt Warm) -Tenderness on Palpation (Pat-wound No No No Skin Appearance) -Ulcer Cleansing Rinsed/ Rinsed/ Soap and Water Irrigated with Irrigated with Saline Saline -Foul Odor after Cleansing No No No -Anesthetic Used 5% Lidocaine 5% Lidocaine 5% Lidocaine Gel Gel Gel Left Calf (cm) 36.7 Left Ankle (cm) 26.2 WC - Nurse 2 - General Ulcer CM Notes Start: 10/15/24 13:57 Freq: Status: Active Protocol: Activity Type Activity Date Activity User E-sign Co-sign Detail Recorded Client Recorded Date Recorded By Document 10/15/24 14:57 JEANNA [id number] 10/15/24 14:59 Document 10/21/24 10:22 JEANNA [id number] 10/21/24 10:33 Document 10/29/24 08:44 JF [id number] 10/29/24 08:47 JF 10/15/24 10/21/24 10/29/24 14:57 10:22 08:44 Wound Center Nurse 2 #2 L Grt Toe Plantar -Time 14:58 10:22 08:44 -Correct Patient Yes Yes Yes -Correct Side, Site, Position Yes Yes Yes -Correct Procedure Yes Yes Yes -Procedure Performed Yes Yes Yes -Type of Procedure Debridement Debridement Debridement -Clinical Debridement Subcutaneous Subcutaneous Subcutaneous -Tissue Removed Subcutaneous Subcutaneous Subcutaneous -Post Debridement (cm) - Length 0.8 0.6 0.8 -Post Debridement (cm) - Width 0.8 0.6 0.8 -Post Debridement (cm) - Depth 0.2 0.3 0.2 -Total Square (Post) (cm) 0.64 0.36 0.64 -Area of Debridement (cm) - Length 0.8 0.6 0.8 -Area of Debridement (cm) - Width 0.8 0.6 0.8 -Total Square (Area) (cm) 0.64 0.36 0.64 -Tunneling No No No -Undermining/Tunneling No No No -Circular Undermining No No No -Wound/Ulcer Outcome Not Healed Not Healed Not Healed -Ulcer Cleansing Rinsed/ Rinsed/ Rinsed/ Irrigated with Irrigated with Irrigated with Saline Saline Saline -Foul Odor after Cleansing No No No -Bioengineered Tissue No No No -Bleeding Controlled with Pressure Pressure Pressure -Treatment Response Procedure Procedure Procedure Tolerated Well Tolerated Well Tolerated Well -Offloading No No No -Debridement - Subq, 1st 20sq cm Yes Yes Yes Pain Scale: 0-10 Numeric Is Patient Pain Free? Yes Yes Yes - Nurse 3 - General Ulcer D/C NN Start: 10/15/24 13:57 Freq: Status: Active Protocol: Activity Type Activity Date Activity User E-sign Co-sign Detail Recorded Client Recorded Date Recorded By Document 10/15/24 15:13 [facility] [id number] 10/15/24 15:14 [facility] Document 10/21/24 10:33 JF [id number] 10/21/24 10:34 Document 10/29/24 08:55 [id number] 10/29/24 08:55 10/15/24 10/21/24 10/29/24 15:13 10:33 08:55 Wound Care Center Nurse 3 #2 L Grt Toe Plantar -Ulcer Cleansing Rinsed/ Not Cleansed Irrigated with Saline -Foul Odor after Cleansing No No -Negative Pressure Wound Therapy N/A -Primary Dressing Applied C Hydrogel -Other Dressing betadine, bandaid -Primary Dressing Covered/Secured with Dry Gauze, Dry Gauze, Secured with Secured with Tape Tape -Other Covering drsg per dl sanitation lead -Hydrogel 1 BLE -Tubular Bandage Single Layer -Size of Tubigrip Used Size D -Size D ($) 2 Treatment Response Procedure Tolerated Well Pain Scale: 0-10 Numeric Is Patient Pain Free? Yes Yes Yes WC - Visit Discharge Discharge Condition Stable Stable Stable Ambulatory Status Ambulatory Ambulatory Ambulatory Transportation Private Auto Private Auto Private Auto Accompanied by Assessment/Plan Assessment/Plan (1) Non-pressure chronic ulcer of other part of left foot with fat layer exposed: CODE(S): L97.522 - Non-pressure chronic ulcer of other part of left foot with fat layer exposed PLAN: Patient was examined and evaluated. All findings were discussed with the patient. All questions were answered to the patient's satisfaction. Excisional debridement down to including subcutaneous tissue with number 3 mm dermal curette to thefull-thickness wound to plantar aspect of left hallux donewithout incident. Predebridement measurement was 0.5 x 0.4 x 0.1 cm. Postdebridement measurement is 0.8 x 0.8 x 0.2 cm. The area was wiped plain andpatted dry. Betadine paint and sterile Band-Aid was applied. Reviewed the patient's radiographs show concern for a osteophyte to the plantar aspect of the amputation site to the left hallux. Will plan for booking the patient for minimally invasive surgery to bur down the bony prominence that is most likely causing the patient's wound. Risk and benefits discussed with the patient in great detail. Patient is agreeable to move forward with elective surgery. Past vascular history has been sent and uploaded into the patient's chart and will review prior to surgery. Patient will follow-up in 1 week (2) Acute painful diabetic polyneuropathy: CODE(S): E11.42 - Type 2 diabetes mellitus with diabetic polyneuropathy 10/29/24 1111 Cosigner Signature (if applicable): CC: ~ Signed [facility] [id number] History and physical note Author Tex Inman [facility] Note Date/Time October 24, 2024 4:03pm [facility] [address] [place] [address] H&P Exam - Wound Care 10/24/24 1529 MR#: [id number] Acct: [id number] Name: YONI VILLALPANDO Rep #:[id number] : 1945 79 From: Tex Chun PCP: Dr. Rey Greenwood MD Status:REG Jono LI Location: [facility] History of Present Illness Date of Service: 10/21/24 Chief Complaint: Diabetic ulceration of the left great toe History of Wound: The patient is seen on behalf of Dr. Nathen Gonzalez, Podiatric specialist, who is the patient's regular Wound Center provider. Patient's history has been previously documented by Dr. Gonzalez. He is under treatment for an ulceration of the plantar aspect of the left great toe. He is a known diabetic, and has a history of myocardial infarction and congestive heart failure. He denies a history of cerebrovascular accident, pulmonary disease, renal disease, thyroid disease, and hyperlipidemia. The patient is not currently a smoker, but formerly smoked 1 pack of cigarettes per day for approximately 45 years. 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 He has a history of peripheral arterial occlusive disease, and indicates that 2 vascular stents have been placed in his right lower extremity, and 1 in his left lower extremity. The patient is ambulatory, but suffers from classic symptoms of intermittent claudication at short distances of ambulation. With 2 blocks of ambulation, the patient experiences calf pain, which is typically relieved by rest. Current management involves the use of Betadine topically to his left great toe ulceration. [facility] Medical History Diabetic foot ulcer associated with type 2 diabetes mellitus Polyneuropathy Intermittent claudication History of myocardial infarction Coronary artery disease History of throat cancer Non-pressure chronic ulcer of other part of left foot with fat layer exposed HTN (hypertension) Throat cancer COPD (chronic obstructive pulmonary disease) Home Medications ?Medication ?Instructions ?Recorded ?Last Taken ?Type albuterol 90 mcg/actuation aerosol mcg inhalation .2 p uffs PRN SOB 01/03/23 Unknown History inhaler amlodipine 5 mg tablet (Norvasc) 5 mg PO DAILY 3 Unknown History aspirin 81 mg tablet,delayed 81 mg PO DAILY 01/03/23 U nknown History release (Adult Low Dose Aspirin) carvedilol 3.125 mg tablet 3.125 mg PO BID 01/03/23 Un known History cholecalciferol (vitamin D3) 1,250 1,250 mcg PO QWEEK 01/03/23 Unknown History mcg (50,000 unit) capsule dutasteride 0.5 mg capsule 0.5 mg PO DAILY 01/03/23 Un known History (Avodart) fluticasone propionate 115 2 inh inhalation DAILY 12/14 04/06 Unknown History mcg-salmeterol 21 mcg/actuation HFA inhaler (Advair HFA) furosemide 40 mg tablet 40 mg PO QODAY 01/03/23 Unkn own History pantoprazole 40 mg tablet,delayed 40 mg PO DAILY 01/03 Unknown History release potassium chloride 10 mEq 10 meq PO DAILY 01/03/23 Unk nown History tablet,extended release(part/cryst) (Klor-Con M) ropinirole 2 mg tablet 2 mg PO BID 01/03/23 Unknown History sour hernandez extract 1,000 mg mg PO gout 01/03/23 Unkno wn History capsule (Tart Hernandez Extract) spironolactone 25 mg tablet 25 mg PO DAILY 01/03/23 Un known History (Aldactone) tamsulosin 0.4 mg capsule (Flomax) 0.4 mg PO DAILY Unknown History tiotropium bromide 18 mcg capsule 1 cap inhalation DANIELE LY 01/03/23 Unknown History with inhalation device (Spiriva with HandiHaler) cephalexin 500 mg capsule 500 mg PO Q6 #40 CAPSULES Unknown Rx sacubitril 24 mg-valsartan 26 mg 1 tab PO BID 10/15/24 Unknown History tablet (Entresto) Allergy/AdvReac Type Severity Reaction Status Date / Time No Known Allergies Allergy Verified 10/30/23 12:59 Surgical History History of throat surgery Social History Smoking Status: Former smoker Physical Exam Const alert, oriented x3, no apparent distress, no limitations and well nourished General Appearance: cooperative, comfortable and well developed Orientation / Consciousness: awake, oriented to person, oriented to place and oriented to time HEENT normocephalic and head/scalp atraumatic Head and Scalp: normal to inspection, normocephalic and atraumatic Nose: external nose normal External Ear: external ears normal Eyes EOMs intact bilaterally General Eye: normal appearance of both eyes Resp normal respiratory effort, normal air movement, no retractions and no use of accessory muscles Effort and Inspection: able to speak in complete sentences Extremity no calf tenderness General Extremity: Negative for clubbing or cyanosis Skin Wound Narrative: The distal aspect of the patient's left second toe is noted to be absent. Thereappears to have been a prior amputation of the distal aspect of the patient's left great toe. The plantar aspect of the remaining left hallux reveals the presence of an ulceration. Dimensions are documented elsewhere. A small amountof callus is noted peripherally. The ulcer extends through all layers of the dermis and into the subcutaneous tissues. Ulcer margins are moderately beveled. The ulceration appears somewhat desiccated. The base of the ulceration demonstrates a moderate amount of bioburden and nonviable tissue. Neuro oriented x3, CN's II-XII intact bilaterally, moves all extremities and no focal motor deficits Sensorium / Orientation: awake, alert, oriented to person, oriented to place andoriented to time Speech: speech normal Psych Appearance: grossly normal and appropriate Attitude: calm Activity / Motor Behavior: appropriate eye contact Speech: normal speech Mood & Affect: euthymic mood Thought Process: normal thought process Thought Content: normal thought content Attention / Concentration: attention grossly intact Debridement Note Debridement Note Wound debrided: Ulceration of the plantar surface of the left hallux Laterality: Left Wound Grade/Stage: Joshi grade 2 Type of Debridement: Excisional debridement Anesthesia Used: 5% Lidocaine Gel Depth: Down to and including healthy tissue and in the subcutaneous layer Percentage of wound debrided: 100 Instrument Used: 3mm curette Tissue Removed: Bioburden and nonviable tissue Severity: Fat Layer Exposed Amount of bleeding with debridement: Mild Bleeding Controlled with: Compression and gauze Patient tolerated procedure: Patient tolerated procedure well Lab / Micro Data 10/23/24 16:05 10/23/24 16:05 Labs: Laboratory Results - last 24 hr 10/23/24 16:05: WBC 8.4, RBC 4.31 L, Hgb 13.4, Hct 40.6, MCV 94.2 H, MCH 31.1, MCHC 33.0, RDW Std Deviation 48.2 H, RDW Coeff of Krista 14.1, Plt Count 154, MPV 11.2, Immature Gran % (Auto) 0.600, Neut % (Auto) 68.4, Lymph % (Auto) 21.7, Baxter % (Auto) 7.9, Eos % (Auto) 1.3, Baso % (Auto) 0.1, Absolute Neuts (auto) 5.7, Absolute Lymphs (auto) 1.82, Nucleated RBC % 0, Sodium 144, Potassium 3.9, Chloride 106, Carbon Dioxide 25.9, Anion Gap 11, BUN 16, Creatinine 0.99, Est GFR (MDRD) Non-Af 79, BUN/Creatinine Ratio 16.6, Glucose 95, Uric Acid 8.2 H, Calcium 9.1, Total Bilirubin 0.64, AST 24, ALT 18, Alkaline Phosphatase 122, Total Protein 7.0, Albumin 4.0, Globulin 3.0, Albumin/Globulin Ratio 1.3, Triglycerides 90, Cholesterol 82, LDL Cholesterol, Calc 22, VLDL Cholesterol 18,HDL Cholesterol 42, Cholesterol/HDL Ratio 1.95, Vitamin D 25-Hydroxy 31.7, TSH 0.866, Hepatitis C Antibody Nonreactive Charges/Coding Multi Select Codes Visit Charges Office Visit/Consults: 26581 OV L4 New 45 min Integumentary Integumentary CPT Codes: 63708 Gina subq tissue 20 sq cm/< Assessment/Plan Assessment/Plan (1) Non-pressure chronic ulcer of other part of left foot with fat layer exposed: CODE(S): L97.522 - Non-pressure chronic ulcer of other part of left foot with fat layer exposed (2) Diabetic foot ulcer associated with type 2 diabetes mellitus: CODE(S): E11.621 - Type 2 diabetes mellitus with foot ulcer; L97.509 - Non- pressure chronic ulcer of other part of unspecified foot with unspecified severity QUALIFIERS: Diabetic foot ulcer location: toe Laterality: left Non-pressure ulcer stage: with fat layer exposed Qualified Code(s): E11.621 - Type 2 diabetes mellitus with foot ulcer; L97.522 - Non-pressure chronic ulcer of other part of left foot with fat layer exposed (3) Intermittent claudication: CODE(S): I73.9 - Peripheral vascular disease, unspecified (4) Peripheral vascular disease: CODE(S): I73.9 - Peripheral vascular disease, unspecified (5) Polyneuropathy: CODE(S): G62.9 - Polyneuropathy, unspecified (6) COPD (chronic obstructive pulmonary disease): CODE(S): J44.9 - Chronic obstructive pulmonary disease, unspecified (7) History of throat cancer: CODE(S): Z85.819 - Personal history of malignant neoplasm of unspecified site of lip, oral cavity, and pharynx (8) Coronary artery disease: CODE(S): I25.10 - Atherosclerotic heart disease of quechan coronary artery without angina pectoris (9) History of myocardial infarction: CODE(S): I25.2 - Old myocardial infarction PLAN: Plan This is a 79-year-old male with a history of diabetes mellitus, treated at the [facility] wound center for a diabetic foot ulceration on the plantar aspect of his left hallux. He has been previously treated at [facility] in [place], [place]. Previous medical records are to be requested. Patient appears to have a history of peripheral arterial occlusive disease, as he relates having had stents placed in the arterial system of both lower extremities. Discussion with the patient also indicates that he suffers from symptoms of intermittent claudication, experiencing pain in both calves with short distances of ambulation, which is typically relieved by rest. We are to implement the use of collagen hydrogel topically to the ulceration on the left hallux. This is to be applied on a daily basis. The patient has been instructed the appropriate means of application. Upon examination today, the ulceration appears somewhat desiccated, and it is hoped that the collagen hydrogel will provide a moist wound healing environment. The patient also indicates that he has a vein problem. He has been encouraged to sleep on a flat surface at night. Activity has been encouraged. Prolonged idle sitting has been discouraged. The patient has been encouraged to optimize his nutritional intake. He has been encouraged to collaborate with his primary carephysician to ensure good control of his diabetes mellitus. Current records did not indicate a recent hemoglobin A1c. Evaluation of the patient's lower extremity arterial status is to be undertaken. Because of the presence of stents in his lower extremity arterial tree, we will forego a standard noninvasive lower extremity arterial study. Instead, we are to obtain an arterial ultrasound of the arterial system in the left lower extremity to determine whether any significant stenotic lesions are apparent. Radiographs ofthe left foot performed on October 20, 2024, have been reviewed. Results indicate no osseous destructive changes seen to suggest the presence of osteomyelitis. The patient is to return in 1 week for reevaluation by Dr. Gonzalez. Total time: 48 minutes 10/24/24 1603 <Electronically signed by Tex Inman MD> Cosigner Signature (if applicable): CC: ~ Signed [facility] Work Phone: 1(631) 124-228809-12-2025 History and physical note [facility] [address] [place] [address] H&P Exam - Wound Care 10/24/24 1529 MR#: [id number] Acct: [id number] Name: YNOI VILLALPANDO Rep #:[id number] : 1945 79 From: Tex Chun PCP: Dr. Rey Greenwood MD Status:REG Jono LI Location: [facility] History of Present Illness Date of Service: 10/21/24 Chief Complaint: Diabetic ulceration of the left great toe History of Wound: The patient is seen on behalf of Dr. Nathen Gonzalez, Podiatric specialist, who is the patient's regular Wound Center provider. Patient's history has been previously documented by . He is under treatment for an ulceration of the plantar aspect of the left great toe. He is a known diabetic, and has a history of myocardial infarction and congestive heart failure. He denies ahistory of cerebrovascular accident, pulmonary disease, renal disease, thyroid disease, and hyperlipidemia. The patient is not currently a smoker, but formerly smoked 1 pack of cigarettes per day forapproximately 45 years. 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 He has a history of peripheral arterial occlusive disease, and indicates that 2 vascular stents have been placed in his right lower extremity, and 1 in his left lower extremity. The patient is ambulatory, but suffers from classic symptoms of intermittent claudication at short distances of ambulation. With 2 blocks of ambulation, the patient experiences calfpain, which is typically relieved by rest. Current management involves the use of Betadine topically to his left great toe ulceration. [facility] Medical History Diabetic foot ulcer associated with type 2 diabetes mellitus Polyneuropathy Intermittent claudication History of myocardial infarction Coronary artery disease History of throat cancer Non-pressure chronic ulcer of other part of left foot with fat layer exposed HTN (hypertension) Throat cancer COPD (chronic obstructive pulmonary disease) Home Medications ?Medication ?Instructions ?Recorded ?Last Taken ?Type albuterol 90 mcg/actuation aerosol mcg inhalation .2 p uffs PRN SOB 01/03/23 Unknown History inhaler amlodipine 5 mg tablet (Norvasc) 5 mg PO DAILY 3 Unknown History aspirin 81 mg tablet,delayed 81 mg PO DAILY 01/03/23 U nknown History release (Adult Low Dose Aspirin) carvedilol 3.125 mg tablet 3.125 mg PO BID 01/03/23 Un known History cholecalciferol (vitamin D3) 1,250 1,250 mcg PO QWEEK 01/03/23 Unknown History mcg (50,000 unit) capsule dutasteride 0.5 mg capsule 0.5 mg PO DAILY 01/03/23 Un known History (Avodart) fluticasone propionate 115 2 inh inhalation DAILY 12/14 04/06 Unknown History mcg-salmeterol 21 mcg/actuation HFA inhaler (Advair HFA) furosemide 40 mg tablet 40 mg PO QODAY 01/03/23 Unkn own History pantoprazole 40 mg tablet,delayed 40 mg PO DAILY 01/03 Unknown History release potassium chloride 10 mEq 10 meq PO DAILY 01/03/23 Unk nown History tablet,extended release(part/cryst) (Klor-Con M) ropinirole 2 mg tablet 2 mg PO BID 01/03/23 Unknown History sour hernandez extract 1,000 mg mg PO gout 01/03/23 Unkno wn History capsule (Tart Hernandez Extract) spironolactone 25 mg tablet 25 mg PO DAILY 01/03/23 Un known History (Aldactone) tamsulosin 0.4 mg capsule (Flomax) 0.4 mg PO DAILY Unknown History tiotropium bromide 18 mcg capsule 1 cap inhalation DANIELE LY 01/03/23 Unknown History with inhalation device (Spiriva with HandiHaler) cephalexin 500 mg capsule 500 mg PO Q6 #40 CAPSULES Unknown Rx sacubitril 24 mg-valsartan 26 mg 1 tab PO BID 10/15/24 Unknown History tablet (Entresto) Allergy/AdvReac Type Severity Reaction Status Date / Time No Known Allergies Allergy Verified 10/30/23 12:59 Surgical History History of throat surgery Social History Smoking Status: Former smoker Physical Exam Const alert, oriented x3, no apparent distress, no limitations and well nourished General Appearance: cooperative, comfortable and well developed Orientation / Consciousness: awake, oriented to person, oriented to place and oriented to time HEENT normocephalic and head/scalp atraumatic Head and Scalp: normal to inspection, normocephalic and atraumatic Nose: external nose normal External Ear: external ears normal Eyes EOMs intact bilaterally General Eye: normal appearance of both eyes Resp normal respiratory effort, normal air movement, no retractions and no use of accessory muscles Effort and Inspection: able to speak in complete sentences Extremity no calf tenderness General Extremity: Negative for clubbing or cyanosis Skin Wound Narrative: The distal aspect of the patient's left second toe is noted to be absent. Thereappears to have kandice prior amputation of the distal aspect of the patient's left great toe. The plantar aspect of the remaining left hallux reveals the presence of an ulceration. Dimensions are documented elsewhere. A s mall amountof callus is noted peripherally. The ulcer extends through all layers of the dermis and into the subcutaneous tissues. Ulcer margins are moderately beveled. The ulceration appears somewhatdesiccated. The base of the ulceration demonstrates a moderate amount of bioburden and nonviable tissue. Neuro oriented x3, CN's II-XII intact bilaterally, moves all extremities and no focal motor deficits Sensorium / Orientation: awake, alert, oriented to person, oriented to place andoriented to time Speech: speech normal Psych Appearance: grossly normal and appropriate Attitude: calm Activity / Motor Behavior: appropriate eye contact Speech: normal speech Mood & Affect: euthymic mood Thought Process: normal thought process Thought Content: normal thought content Attention / Concentration: attention grossly intact Debridement Note Debridement Note Wound debrided: Ulceration of the plantar surface of the left hallux Laterality: Left Wound Grade/Stage: Joshi grade 2 Type of Debridement: Excisional debridement Anesthesia Used: 5% Lidocaine Gel Depth: Down to and including healthy tissue and in the subcutaneous layer Percentage of wound debrided: 100 Instrument Used: 3mm curette Tissue Removed: Bioburden and nonviable tissue Severity: Fat Layer Exposed Amount of bleeding with debridement: Mild Bleeding Controlled with: Compression and gauze Patient tolerated procedure: Patient tolerated procedure well Lab / Micro Data 10/23/24 16:05 10/23/24 16:05 Labs: Laboratory Results - last 24 hr 10/23/24 16:05: WBC 8.4, RBC 4.31 L, Hgb 13.4, Hct 40.6, MCV 94.2 H, MCH 31.1, MCHC 33.0, RDW Std Deviation 48.2 H, RDW Coeff of Krista 14.1, Plt Count 154, MPV 11.2, Immature Gran % (Auto) 0.600, Neut % (Auto) 68.4, Lymph % (Auto) 21.7, Baxter % (Auto) 7.9, Eos % (Auto) 1.3, Baso % (Auto) 0.1, AbsoluteNeuts (auto) 5.7, Absolute Lymphs (auto) 1.82, Nucleated RBC % 0, Sodium 144, Potassium 3.9, Chloride 106, Carbon Dioxide 25.9, Anion Gap 11, BUN 16, Creatinine 0.99, Est GFR (MDRD) Non-Af 79, BUN/Creatinine Ratio 16.6, Glucose 95, Uric Acid 8.2 H, Calcium 9.1, Total Bilirubin 0.64, AST 24, ALT 18,Alkaline Phosphatase 122, Total Protein 7.0, Albumin 4.0, Globulin 3.0, Albumin/Globulin Ratio 1.3, Triglycerides 90, Cholesterol 82, LDL Cholesterol, Calc 22, VLDL Cholesterol 18,HDL Cholesterol 42,Cholesterol/HDL Ratio 1.95, Vitamin D 25-Hydroxy 31.7, TSH 0.866, Hepatitis C Antibody Nonreactive Charges/Coding Multi Select Codes Visit Charges Office Visit/Consults: 45692 OV L4 New 45 min Integumentary Integumentary CPT Codes: 67893 Gnia subq tissue 20 sq cm/< Assessment/Plan Assessment/Plan (1) Non-pressure chronic ulcer of other part of left foot with fat layer exposed: CODE(S): L97.522 - Non-pressure chronic ulcer of other part of left foot with fat layer exposed (2) Diabetic foot ulcer associated with type 2 diabetes mellitus: CODE(S): E11.621 - Type 2 diabetes mellitus with foot ulcer; L97.509 - Non- pressure chronic ulcer of other part of unspecified foot with unspecified severity QUALIFIERS: Diabetic foot ulcer location: toe Laterality: left Non-pressure ulcer stage: with fat layer exposed Qualified Code(s): E11.621 - Type 2 diabetes mellitus with foot ulcer; L97.522 - Non-pressure chronic ulcer of other part of left foot with fat layer exposed (3) Intermittent claudication: CODE(S): I73.9 - Peripheral vascular disease, unspecified (4) Peripheral vascular disease: CODE(S): I73.9 - Peripheral vascular disease, unspecified (5) Polyneuropathy: CODE(S): G62.9 - Polyneuropathy, unspecified (6) COPD (chronic obstructive pulmonary disease): CODE(S): J44.9 - Chronic obstructive pulmonary disease, unspecified (7) History of throat cancer: CODE(S): Z85.819 - Personal history of malignant neoplasm of unspecified site of lip, oral cavity, and pharynx (8) Coronary artery disease: CODE(S): I25.10 - Atherosclerotic heart disease of quechan coronary artery without angina pectoris (9) History of myocardial infarction: CODE(S): I25.2 - Old myocardial infarction PLAN: Plan This is a 79-year-old male with a history of diabetes mellitus, treated at the [facility] wound center for a diabetic foot ulceration on the plantar aspect of his left hallux. He has been previously treated at [facility] in [place], [place]. Previous medical records are to be requested. Patient appears to have a history of peripheral arterial occlusive disease, as he relateshaving had stents placed in the arterial system of both lower extremities. Discussion with the patient also indicates that he suffers from symptoms of intermittent claudication, experiencing pain in both calves with short distances of ambulation, which is typically relieved by rest. We are to implement the use of collagen hydrogel topically to the ulceration on the left hallux. This is to be applied on a daily basis. The patient has been instructed the appropriate means of application. Upon examination today, the ulceration appears somewhat desiccated, and it is hoped that the collagen hydrogel will provide a moist wound healing environment. The patient also indicates that he has a vein problem. He has been encouraged to sleep on a flat surface at night. Activity has been encouraged. Prolonged idle sitting has been discouraged. The patient has been encouraged to optimize his nutritional intake. He has been encouraged to collaborate with his primary carephysician to ensure good control of his diabetes mellitus. Current records did not indicate a recent hemoglobin A1c. Evaluation ofthe patient's lower extremity arterial status is to be undertaken. Because of the presence of stents in his lower extremity arterial tree, we will forego a standard noninvasive lower extremity arterial study. Instead, we are to obtain an arterial ultrasound of the arterial system in the left lower extremity to determine whether any significant stenotic lesions are apparent. Radiographs ofthe leftfoot performed on October 20, 2024, have been reviewed. Results indicate no osseous destructive changes seen to suggest the presence of osteomyelitis. The patient is to return in 1 week for reevaluation by Dr. Gonzalez. Total time: 48 minutes 10/24/24 1603 Cosigner Signature (if applicable): CC: ~ Signed [facility]09-11-2025 Evaluation note* Diagnosis Onset Date Resolution Status Admit Date Coronary artery disease acute S eptember 2024 4:04pm 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 acute Se ptember 2024 4:04pm History of myocardial infarction acute October 23, 2024 4:04pm History of throat cancer acute October 23, 2024 4:04pm Intermittent claudication acute October 23, 2024 4:04pm Peripheral vascular disease acute October 23, 2024 4:04pm Polyneuropathy acute October 23, 2024 4:04pm COPD (chronic obstructive pulmonary disease) chronic October 4:04pm Non-pressure chronic ulcer o f other part of left foot with fat layer exposed chronic October 4:04pm Acute painful diabetic polyneuropathy acute November 05, 2024 8:45am Pain in left foot acute er 2024 8:45am Non-pressure chronic ulcer o f other part of left foot with fat layer exposed chronic October 8:45am [facility] Work Phone: 1(940) 541-226909-11-2025 Evaluation note* Diagnosis Onset Date Resolution Status Admit Date Coronary artery disease acute S eptember 2024 4:04pm 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 acute Se ptember 2024 4:04pm History of myocardial infarction acute October 23, 2024 4:04pm History of throat cancer acute October 23, 2024 4:04pm Intermittent claudication acute October 23, 2024 4:04pm Peripheral vascular disease acute October 23, 2024 4:04pm Polyneuropathy acute October 23, 2024 4:04pm COPD (chronic obstructive pulmonary disease) chronic October 4:04pm Non-pressure chronic ulcer o f other part of left foot with fat layer exposed chronic October 4:04pm Acute painful diabetic polyneuropathy acute November 05, 2024 8:45am Pain in left foot acute er 2024 8:45am Non-pressure chronic ulcer o f other part of left foot with fat layer exposed chronic October 8:45am Acute painful diabetic polyneuropathy acute November 12 8:44am Non-pressure chronic ulcer o f other part of left foot with fat layer exposed chronic November 12 8:44am 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 November 12 8:44am [facility] Work Phone: 1(112) 527-876509-08-2025 Radiology Diagnostic study note [facility] [address] [place], [place] [address] Foot min 3 Views MR#: [id number] Acct: [id number] Name: YONI VILLALPANDO Rep #: [id number] : 1945 M 79 From: Isacc Narvaez MD PCP: Dr. Rey Greenwood MD Status: REG R CR Study:Foot min 3 Views Date of Exam: 10/06 Exam# [id number] Ordering Dr: Shayne Gonzalez DPM PROCEDURE: FOOT MIN 3 VIEWS 10/20/2024 REASON FOR EXAM: ULCER LEFT FOOT TECHNIQUE: Procedure Code: RADFO Modality: DX Procedure: FOOT MIN 3 VIEWS Laterality: Left COMPARISON: Left foot study of 10/30/2023. RAD/Foot min 3 Views IMPRESSION: Interval amputation of the 2nd toe of the proximal shaft of the proximal phalanxnoted. 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 Flattening of the 2nd metatarsal head noted with partial joint narrowing; differential diagnosis includes osteonecrosis posttraumatic change. Erosive change in the lateral head of the 3rd metatarsal bone noted, with mild degenerative changesseen of the metatarsophalangeal joint [id number] degenerative changes seen of the 1st metatarsal head. Mild degenerative changes are seen throughout the midfoot and the remaining toes. No acute fracture or dislocation is seen. No osseous destructive change is seen to suggest the presence of osteomyelitis. Follow up imaging if and as clinically appropriate. Reading Location: [place] [address] CC: KATHERINE Gonzalez; Dr. Rey Greenwood MD ~ Petroleum Analyst: Signed [facility]09-05-2025 History and physical note Author Nathen Gonzalez [facility] Note Date/Time October 17, 2024 6:51pm [facility] [address] [place] [address] H&P Exam - Wound Care 10/15/24 1521 MR#: [id number] Acct: [id number] Name: YONI VILLALPANDO Rep #:[id number] : 1945 79 From: Nathen Gonzalez D PM PCP: Dr. Rey Greenwood MD Status:REG R CR Location: History of Present Illness Date of Service: 10/15/24 Chief Complaint: Right foot ulceration History of Wound: Mr. Villalpando is a 77-year-old male with a past medical history of coronary artery disease and clean out to the right lower extremity by an outsideprovider. Presenting today to the wound care center [facility] with a chief complaint of right plantar foot ulceration. Patient states he had a callus to the area and then noticed drainage to his sock and now has a full- thickness ulceration. He was seen by urgent care and placed on 2 antibiotics based on culture and sensitivity. He is unfamiliar with what antibiotics he is on. He denies trauma. Denies constitutional symptoms. No other pedal complaints at this time. 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 [facility] Medical History HTN (hypertension) Throat cancer COPD (chronic obstructive pulmonary disease) Home Medications ?Medication ?Instructions ?Recorded ?Last Taken ?Type albuterol 90 mcg/actuation aerosol mcg inhalation .2 p uffs PRN SOB 01/03/23 Unknown History inhaler amlodipine 5 mg tablet (Norvasc) 5 mg PO DAILY 3 Unknown History aspirin 81 mg tablet,delayed 81 mg PO DAILY 01/03/23 U nknown History release (Adult Low Dose Aspirin) carvedilol 3.125 mg tablet 3.125 mg PO BID 01/03/23 Un known History cholecalciferol (vitamin D3) 1,250 1,250 mcg PO QWEEK 01/03/23 Unknown History mcg (50,000 unit) capsule dutasteride 0.5 mg capsule 0.5 mg PO DAILY 01/03/23 Un known History (Avodart) fluticasone propionate 115 2 inh inhalation DAILY 12/14 04/06 Unknown History mcg-salmeterol 21 mcg/actuation HFA inhaler (Advair HFA) furosemide 40 mg tablet 40 mg PO QODAY 01/03/23 Unkn own History pantoprazole 40 mg tablet,delayed 40 mg PO DAILY 01/03 Unknown History release potassium chloride 10 mEq 10 meq PO DAILY 01/03/23 Unk nown History tablet,extended release(part/cryst) (Klor-Con M) ropinirole 2 mg tablet 2 mg PO BID 01/03/23 Unknown History sour hernandez extract 1,000 mg mg PO gout 01/03/23 Unkno wn History capsule (Tart Hernandez Extract) spironolactone 25 mg tablet 25 mg PO DAILY 01/03/23 Un known History (Aldactone) tamsulosin 0.4 mg capsule (Flomax) 0.4 mg PO DAILY Unknown History tiotropium bromide 18 mcg capsule 1 cap inhalation DANIELE LY 01/03/23 Unknown History with inhalation device (Spiriva with HandiHaler) cephalexin 500 mg capsule 500 mg PO Q6 #40 CAPSULES Unknown Rx sacubitril 24 mg-valsartan 26 mg 1 tab PO BID 10/15/24 Unknown History tablet (Entresto) Allergy/AdvReac Type Severity Reaction Status Date / Time No Known Allergies Allergy Verified 10/30/23 12:59 Surgical History (Updated 10/30/23 @ 15:[address] Mario Diaz DO) History of throat surgery Social History Smoking Status: Former smoker Vital Signs Vital Signs Vital Signs: 10/15/24 13:57 Temperature 98.2 F Temperature Source Temporal Pulse Rate 85 Respiratory Rate 18 Blood Pressure 144/74 H Blood Pressure Mean 97 Blood Pressure Source Monitor Weight Weight: 95.254 kg Body Mass Index (BMI) 30.1 Physical Exam Narrative Vascular: DP and PT pulses palpable. CFT brisk. No erythema or proximal streaking. Skin temperature is warm to warm with no focal increase. Neurologic: Light touch is intact. Protective sensation is absent. 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 Full-thickness wound to the plantar aspect left hallux measuring 0.8 x 0.8 x 0.2 cm. Wound base is granular with no signs of infection. Excisional debridement down to including subcutaneous tissue with number 3 mm dermal curette to the full-thickness wound to plantar aspect of left hallux donewithout incident. Predebridement measurement was 0.5 x 0.5 x 0.1 cm. Postdebridement measurement is 0.8 x 0.8 x 0.2 cm. Musculoskeletal: Decreased range of motion to the first metatarsal phalangeal joint to the left foot. No pain on palpation to the full-thickness wound to plantar aspect of the left great toe. No pain with calf pressure. Debridement Note Debridement Note Debridement Free Text: Excisional debridement down to including subcutaneous tissue with number 3 mm dermal curette to the full-thickness wound to plantar aspect of left hallux done without incident. Predebridement measurement was 0.5x 0.5 x 0.1 cm. Postdebridement measurement is 0.8 x 0.8 x 0.2 cm. Post-Debridement Measurements and Additional Note: Post-Debridement Measurements/Treatment STEVEN - Nurse 1 - General Ulcer Assessment Start: 10/15/24 13:57 Freq: Status: Active Protocol: YOUNG Activity Type Activity Date Activity User E-sign Co-sign Detail Recorded Client Recorded Date Recorded By Document 10/15/24 13:57 DL [id number] 10/15/24 14:19 DL 10/15/24 13:57 WC - Today's Visit Information Type of service Initial Visit Arrival Mode Ambulatory Transfer Assistance None Patient Identification Verified (Name & Yes ) Patient Requires Transmission-Based No Precautions Safety Precautions NA Height and Weight Height 5 ft 10 in Weight 95.254 kg Weight in Pounds 210.0 lbs Body Mass Index (BMI) 30.1 BMI Classification Obese Vital Signs Temperature (97.8 F-99.1 F) 98.2 F Temperature Source Temporal Pulse Rate (60-100) 85 Pulse Location Monitor Respiratory Rate (12-18) 18 Respiratory rate source Observation Blood Pressure (90/60-120/80) 144/74 H Blood Pressure Mean 97 Source Monitor Pain Scale: 0-10 Numeric Is Patient Pain Free? Yes Lower Extremity Assessment/ Foot Assessment/ Toe Nail Assessment Left -Posterior Tibial Palpable No -Dorsalis Pedis Palpable No -Extremity Color Hemosiderin -Hair Growth on Legs No -Hair Growth on Toes No -Capillary Refill Greater than 3 Seconds -Dependent Rubor No -Blanched when Elevated No -Lipodermatosclerosis No -Other Deformity Yes -Prior Foot Ulcer Yes -Charcot Joint No -Prior Amputation Yes -Thick Yes -Discolored Yes -Deformed Yes -Improper Length & Hygeine No Right -Posterior Tibial Palpable No -Dorsalis Pedis Palpable Yes -Extremity Color Hemosiderin -Hair Growth on Legs No -Hair Growth on Toes No -Temperature of Extremity Warm -Capillary Refill Greater than 3 Seconds -Dependent Rubor No -Blanched when Elevated No -Lipodermatosclerosis No -Other Deformity No -Prior Foot Ulcer No -Charcot Joint No -Prior Amputation No -Thick Yes -Discolored Yes -Deformed Yes -Improper Length & Hygeine No WC - Nurse 1 - General Ulcer Measurement Start: 10/15/24 13:57 Freq: Status: Active Protocol: Activity Type Activity Date Activity User E-sign Co-sign Detail Recorded Client Recorded Date Recorded By Document 10/15/24 13:57 ALYSON [id number] 10/15/24 14:19 DL 10/15/24 13:57 Wound Center Nurse 1 #2 L Grt Toe Plantar -Current Size (cm) - Length 0.5 -Current Size (cm) - Width 0.5 -Current Size (cm) - Depth 0.3 -Total Square Cm 0.25 -Photo Taken Yes -Classification - Thickness Full Thickness without Exposed Support Structure -Exudate Amt Small -Exudate Type Serosanguineous -Wound Margin Thickened -Granulation Amt Small (1-33%) -Granulation Quality [place] -Necrosis Amt None Present (0 %) -Structure Exposed N/A -Texture (Pat-wound Skin Appearance) Callus,Scarring -Moisture (Pat-wound Skin Appearance) Dry/Scaly -Color (Pat-wound Skin Appearance) No Abnormality -Temperature (Pat-wound Skin No Abnormality Appearance) (Pt Warm) -Tenderness on Palpation (Pat-wound No Skin Appearance) -Ulcer Cleansing Rinsed/ Irrigated with Saline -Foul Odor after Cleansing No -Anesthetic Used 5% Lidocaine Gel - Nurse 2 - General Ulcer CM Notes Start: 10/15/24 13:57 Freq: Status: Active Protocol: Activity Type Activity Date Activity User E-sign Co-sign Detail Recorded Client Recorded Date Recorded By Document 10/15/24 14:57 JEANNA [id number] 10/15/24 14:59 10/15/24 14:57 Wound Center Nurse 2 -Time 14:58 -Correct Patient Yes -Correct Side, Site, Position Yes -Correct Procedure Yes -Procedure Performed Yes -Type of Procedure Debridement -Clinical Debridement Subcutaneous -Tissue Removed Subcutaneous -Post Debridement (cm) - Length 0.8 -Post Debridement (cm) - Width 0.8 -Post Debridement (cm) - Depth 0.2 -Total Square (Post) (cm) 0.64 -Area of Debridement (cm) - Length 0.8 -Area of Debridement (cm) - Width 0.8 -Total Square (Area) (cm) 0.64 -Tunneling No -Undermining/Tunneling No -Circular Undermining No -Wound/Ulcer Outcome Not Healed -Ulcer Cleansing Rinsed/ Irrigated with Saline -Foul Odor after Cleansing No -Bioengineered Tissue No -Bleeding Controlled with Pressure -Treatment Response Procedure Tolerated Well -Offloading No -Debridement - Subq, 1st 20sq cm Yes Pain Scale: 0-10 Numeric Is Patient Pain Free? Yes WC - Nurse 3 - General Ulcer D/C NN Start: 10/15/24 13:57 Freq: Status: Active Protocol: Activity Type Activity Date Activity User E-sign Co-sign Detail Recorded Client Recorded Date Recorded By Document 10/15/24 15:13 [facility] [id number] 10/15/24 15:14 [facility] 10/15/24 15:13 Wound Care Center Nurse 3 #2 L Grt Toe Plantar -Other Dressing betadine, bandaid -Other Covering drsg per dl sanitation lead BLE -Tubular Bandage Single Layer -Size of Tubigrip Used Size D -Size D ($) 2 Treatment Response Procedure Tolerated Well Pain Scale: 0-10 Numeric Is Patient Pain Free? Yes WC - Visit Discharge Discharge Condition Stable Ambulatory Status Ambulatory Transportation Private Auto Accompanied by Assessment/Plan Assessment/Plan (1) Pain in left foot: CODE(S): M79.672 - Pain in left foot PLAN: Patient was examined and evaluated. All findings were discussed with the patient. All questions were answered to the patient's satisfaction. Excisional debridement down to including subcutaneous tissue with number 3 mm dermal curette to the full-thickness wound to plantar aspect of left hallux donewithout incident. Predebridement measurement was 0.5 x 0.5 x 0.1 cm. Postdebridement measurement is 0.8 x 0.8 x 0.2 cm. Area was wiped clean and patted dry. There is no concern for infection. Betadine paint sterile Band-Aid was applied. Patient will change daily. Patient was given an order for x-rays to make sure that there is no bone spurs or concern for bone infection due to the wound being open for a few months.. Patient's son states that his blood sugars well-controlled. I did educate the patient that the decreased range of motion of the big toe joint to the left foot is the likely cause for his wound. 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 Patient was understanding of this. Patient will continue strict blood sugar control. Patient will follow-up in 1 week (2) Non-pressure chronic ulcer of other part of left foot with fat layer exposed: CODE(S): L97.522 - Non-pressure chronic ulcer of other part of left foot with fat layer exposed (3) Acute painful diabetic polyneuropathy: CODE(S): E11.42 - Type 2 diabetes mellitus with diabetic polyneuropathy 10/17/24 1851 <Electronically signed by Nathen Gonzalez DPM> Cosigner Signature (if applicable): CC: ~ Signed [facility] Work Phone: [phone] History and physical note [facility] [address] [place] [id number] H&P Exam - Wound Care 10/15/24 1521 MR#: [id number] Acct: [id number] Name: YONI VILLALPANDO Rep #:[id number] : 1945 79 From: Nathen Chun PM PCP: Dr. Rey Greenwood MD Status:REG R CR Location: History of Present Illness Date of Service: 10/15/24 Chief Complaint: Right foot ulceration History of Wound: Mr. Villalpando is a 77-year-old male with a past medical history of coronary artery disease and clean out to the right lower extremity by an outsideprovider. Presenting today to the woundcare center [facility] with a chief complaint of right plantar foot ulceration. Patient states he had a callus to the area and then noticed drainage to his sock and now has a full-thickness ulceration. He was seen by urgent care and placed on 2 antibiotics based on culture and sensitivity. He is unfamiliar with what antibiotics he is on. He denies trauma. Denies constitutional symptoms. No other pedal complaints at this time. 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 [facility] Medical History HTN (hypertension) Throat cancer COPD (chronic obstructive pulmonary disease) Home Medications ?Medication ?Instructions ?Recorded ?Last Taken ?Type albuterol 90 mcg/actuation aerosol mcg inhalation .2 p uffs PRN SOB 01/03/23 Unknown History inhaler amlodipine 5 mg tablet (Norvasc) 5 mg PO DAILY 3 Unknown History aspirin 81 mg tablet,delayed 81 mg PO DAILY 01/03/23 U nknown History release (Adult Low Dose Aspirin) carvedilol 3.125 mg tablet 3.125 mg PO BID 01/03/23 Un known History cholecalciferol (vitamin D3) 1,250 1,250 mcg PO QWEEK 01/03/23 Unknown History mcg (50,000 unit) capsule dutasteride 0.5 mg capsule 0.5 mg PO DAILY 01/03/23 Un known History (Avodart) fluticasone propionate 115 2 inh inhalation DAILY 12/14 04/06 Unknown History mcg-salmeterol 21 mcg/actuation HFA inhaler (Advair HFA) furosemide 40 mg tablet 40 mg PO QODAY 01/03/23 Unkn own History pantoprazole 40 mg tablet,delayed 40 mg PO DAILY 01/03 Unknown History release potassium chloride 10 mEq 10 meq PO DAILY 01/03/23 Unk nown History tablet,extended release(part/cryst) (Klor-Con M) ropinirole 2 mg tablet 2 mg PO BID 01/03/23 Unknown History sour hernandez extract 1,000 mg mg PO gout 01/03/23 Unkno wn History capsule (Tart Hernandez Extract) spironolactone 25 mg tablet 25 mg PO DAILY 01/03/23 Un known History (Aldactone) tamsulosin 0.4 mg capsule (Flomax) 0.4 mg PO DAILY Unknown History tiotropium bromide 18 mcg capsule 1 cap inhalation DANIELE LY 01/03/23 Unknown History with inhalation device (Spiriva with HandiHaler) cephalexin 500 mg capsule 500 mg PO Q6 #40 CAPSULES Unknown Rx sacubitril 24 mg-valsartan 26 mg 1 tab PO BID 10/15/24 Unknown History tablet (Entresto) Allergy/AdvReac Type Severity Reaction Status Date / Time No Known Allergies Allergy Verified 10/30/23 12:59 Surgical History (Updated 10/30/23 @ 15:[address] Mario Diaz DO) History of throat surgery Social History Smoking Status: Former smoker Vital Signs Vital Signs Vital Signs: 10/15/24 13:57 Temperature 98.2 F Temperature Source Temporal Pulse Rate 85 Respiratory Rate 18 Blood Pressure 144/74 H Blood Pressure Mean 97 Blood Pressure Source Monitor Weight Weight: 95.254 kg Body Mass Index (BMI) 30.1 Physical Exam Narrative Vascular: DP and PT pulses palpable. CFT brisk. No erythema or proximal streaking. Skin temperatureis warm to warm with no focal increase. Neurologic: Light touch is intact. Protective sensation is absent. 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 Full-thickness wound to the plantar aspect left hallux measuring 0.8 x 0.8 x 0.2 cm. Wound base is granular with no signs of infection. Excisional debridement down to including subcutaneous tissue with number 3 mm dermal curette to thefull-thickness wound to plantar aspect of left hallux donewithout incident. Predebridement measurement was 0.5 x 0.5 x 0.1 cm. Postdebridement measurement is 0.8 x 0.8 x 0.2 cm. Musculoskeletal: Decreased range of motion to the first metatarsal phalangeal joint to the left foot. No pain on palpation to the full-thickness wound to plantar aspect of the left great toe. No painwith calf pressure. Debridement Note Debridement Note Debridement Free Text: Excisional debridement down to including subcutaneous tissue with number 3 mm dermal curette to the full-thickness wound to plantar aspect of left hallux done without incident.Predebridement measurement was 0.5x 0.5 x 0.1 cm. Postdebridement measurement is 0.8 x 0.8 x 0.2 cm. Post-Debridement Measurements and Additional Note: Post-Debridement Measurements/Treatment - Nurse 1 - General Ulcer Assessment Start: 10/15/24 13:57 Freq: Status: Active Protocol: STEVEN.LOWEXT Activity Type Activity Date Activity User E-sign Co-sign Detail Recorded Client Recorded Date Recorded By Document 10/15/24 13:57 DL [id number] 10/15/24 14:19 DL 10/15/24 13:57 - Today's Visit Information Type of service Initial Visit Arrival Mode Ambulatory Transfer Assistance None Patient Identification Verified (Name & Yes ) Patient Requires Transmission-Based No Precautions Safety Precautions NA Height and Weight Height 5 ft 10 in Weight 95.254 kg Weight in Pounds 210.0 lbs Body Mass Index (BMI) 30.1 BMI Classification Obese Vital Signs Temperature (97.8 F-99.1 F) 98.2 F Temperature Source Temporal Pulse Rate (60-100) 85 Pulse Location Monitor Respiratory Rate (12-18) 18 Respiratory rate source Observation Blood Pressure (90/60-120/80) 144/74 H Blood Pressure Mean 97 Source Monitor Pain Scale: 0-10 Numeric Is Patient Pain Free? Yes Lower Extremity Assessment/ Foot Assessment/ Toe Nail Assessment Left -Posterior Tibial Palpable No -Dorsalis Pedis Palpable No -Extremity Color Hemosiderin -Hair Growth on Legs No -Hair Growth on Toes No -Capillary Refill Greater than 3 Seconds -Dependent Rubor No -Blanched when Elevated No -Lipodermatosclerosis No -Other Deformity Yes -Prior Foot Ulcer Yes -Charcot Joint No -Prior Amputation Yes -Thick Yes -Discolored Yes -Deformed Yes -Improper Length & Hygeine No Right -Posterior Tibial Palpable No -Dorsalis Pedis Palpable Yes -Extremity Color Hemosiderin -Hair Growth on Legs No -Hair Growth on Toes No -Temperature of Extremity Warm -Capillary Refill Greater than 3 Seconds -Dependent Rubor No -Blanched when Elevated No -Lipodermatosclerosis No -Other Deformity No -Prior Foot Ulcer No -Charcot Joint No -Prior Amputation No -Thick Yes -Discolored Yes -Deformed Yes -Improper Length & Hygeine No - Nurse 1 - General Ulcer Measurement Start: 10/15/24 13:57 Freq: Status: Active Protocol: Activity Type Activity Date Activity User E-sign Co-sign Detail Recorded Client Recorded Date Recorded By Document 10/15/24 13:57 DL [id number] 10/15/24 14:19 DL 10/15/24 13:57 Wound Center Nurse 1 #2 L Grt Toe Plantar -Current Size (cm) - Length 0.5 -Current Size (cm) - Width 0.5 -Current Size (cm) - Depth 0.3 -Total Square Cm 0.25 -Photo Taken Yes -Classification - Thickness Full Thickness without Exposed Support Structure -Exudate Amt Small -Exudate Type Serosanguineous -Wound Margin Thickened -Granulation Amt Small (1-33%) -Granulation Quality [place] -Necrosis Amt None Present (0 %) -Structure Exposed N/A -Texture (Pat-wound Skin Appearance) Callus,Scarring -Moisture (Pat-wound Skin Appearance) Dry/Scaly -Color (Pat-wound Skin Appearance) No Abnormality -Temperature (Pat-wound Skin No Abnormality Appearance) (Pt Warm) -Tenderness on Palpation (Pat-wound No Skin Appearance) -Ulcer Cleansing Rinsed/ Irrigated with Saline -Foul Odor after Cleansing No -Anesthetic Used 5% Lidocaine Gel - Nurse 2 - General Ulcer CM Notes Start: 10/15/24 13:57 Freq: Status: Active Protocol: Activity Type Activity Date Activity User E-sign Co-sign Detail Recorded Client Recorded Date Recorded By Document 10/15/24 14:57 [id number] 10/15/24 14:59 10/15/24 14:57 Wound Center Nurse 2 -Time 14:58 -Correct Patient Yes -Correct Side, Site, Position Yes -Correct Procedure Yes -Procedure Performed Yes -Type of Procedure Debridement -Clinical Debridement Subcutaneous -Tissue Removed Subcutaneous -Post Debridement (cm) - Length 0.8 -Post Debridement (cm) - Width 0.8 -Post Debridement (cm) - Depth 0.2 -Total Square (Post) (cm) 0.64 -Area of Debridement (cm) - Length 0.8 -Area of Debridement (cm) - Width 0.8 -Total Square (Area) (cm) 0.64 -Tunneling No -Undermining/Tunneling No -Circular Undermining No -Wound/Ulcer Outcome Not Healed -Ulcer Cleansing Rinsed/ Irrigated with Saline -Foul Odor after Cleansing No -Bioengineered Tissue No -Bleeding Controlled with Pressure -Treatment Response Procedure Tolerated Well -Offloading No -Debridement - Subq, 1st 20sq cm Yes Pain Scale: 0-10 Numeric Is Patient Pain Free? Yes - Nurse 3 - General Ulcer D/C NN Start: 10/15/24 13:57 Freq: Status: Active Protocol: Activity Type Activity Date Activity User E-sign Co-sign Detail Recorded Client Recorded Date Recorded By Document 10/15/24 15:13 [facility] [id number] 10/15/24 15:14 [facility] 10/15/24 15:13 Wound Care Center Nurse 3 #2 L Grt Toe Plantar -Other Dressing betadine, bandaid -Other Covering drsg per dl sanitation lead BLE -Tubular Bandage Single Layer -Size of Tubigrip Used Size D -Size D ($) 2 Treatment Response Procedure Tolerated Well Pain Scale: 0-10 Numeric Is Patient Pain Free? Yes WC - Visit Discharge Discharge Condition Stable Ambulatory Status Ambulatory Transportation Private Auto Accompanied by Assessment/Plan Assessment/Plan (1) Pain in left foot: CODE(S): M79.672 - Pain in left foot PLAN: Patient was examined and evaluated. All findings were discussed with the patient. All questions were answered to the patient's satisfaction. Excisional debridement down to including subcutaneous tissue with number 3 mm dermal curette to thefull-thickness wound to plantar aspect of left hallux donewithout incident. Predebridement measurement was 0.5 x 0.5 x 0.1 cm. Postdebridement measurement is 0.8 x 0.8 x 0.2 cm. Area was wiped clean and patted dry. There is no concern for infection. Betadine paint sterile Band-Aid was applied. Patient will change daily. Patient was given an order for x-rays to make sure that there is no bone spurs or concern for bone infection due to the wound being open for a few months.. Patient's son states that his blood sugars well-controlled. I did educate the patient that the decreased range of motion of the big toe joint to the left foot is the likely cause for his wound. 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 Patient was understanding of this. Patient will continue strict blood sugar control. Patient will follow-up in 1 week (2) Non-pressure chronic ulcer of other part of left foot with fat layer exposed: CODE(S): L97.522 - Non-pressure chronic ulcer of other part of left foot with fat layer exposed (3) Acute painful diabetic polyneuropathy: CODE(S): E11.42 - Type 2 diabetes mellitus with diabetic polyneuropathy 10/17/24 1851 Cosigner Signature (if applicable): CC: ~ Signed [facility]10-08-2024 History of Present illness Narrative* Nallely Benavidez - 11/20/2023 3:00 PM EDT Images from the original note were not included. [facility] [employer] [facility] Patient: Yoni Villalpando : 1945 Age: .78 y.o. Gender: male PCP: Alisia Rees MD Assessment and Plan In summary, Yoni Villalpando is a 78 y.o. male with coronary artery disease, ischemic cardiomyopathy andcongestive heart failure presents for an office visit today. This is my first time meeting andestablishing care with him. 1. Coronary artery disease - Remote PCI over 10 years ago. No records available. - He denies any recent symptoms. - Continue daily aspirin indefinitely. 2. Congestive heart failure-acute on chronic systolic and diastolic dysfunction. - Echocardiogram from recent admission with LVEF 35-40% and hypokinesis of the inferior inferolateral vaughan. - Continue guideline rest medical therapy with Farxiga, Aldactone, metoprolol and Entresto. - NYHA class I today. 3. Ischemic cardiomyopathy - Asymptomatic today and euvolemic on exam. 4. Peripheral arterial disease - Status post prior lower extremity revascularization. 5. Hypertension - Well-controlled today. Continue current medical therapy. 6. Hyperlipidemia - Continue statin. 7. Ex-smoker with COPD 8. Left big toe osteomyelitis - He has completed a course of antibiotics. 9. Left fascicular block It is my pleasure having the opportunity to help take care of Mr. Yoni Villalpando. If you have any questions, please feel free to contact me. Nallely Benavidez MD [facility] 11/20/23 2:36 PM EDT [facility] [address], [address] [place] [id number] Office [phone] Chief Complaint: presents for an office visit HPI: Yoni Villalpando is a 78 y.o. male with a past medical history of coronary artery disease and congestive heart failure presents for an office visit today. This is my first time meeting establishing care with him. He was recently hospitalized with toe osteomyelitis and found to be in congestive heart failure. Guideline directed medical therapy was initiated. Since leaving the hospital, he has been feeling much better. He is active and denies any chest painor shortness of breath at rest or with exertion. He denies any heart failure symptoms including orthopnea, PND and lower extremity edema. He is compliant with his medications as prescribed, denies any side effects. He is preparing to leave and return to [place] next week. REVIEW OF SYSTEMS CARDIAC: Negative for chest pain, shoulder pain, dyspnea on exertion, paroxysmal nocturnal dyspnea,peripheral edema. GENERAL: Negative for nausea, vomiting, fevers, chills, or weight loss. NEUROLOGIC: Negative for blurry vision, double vision, facial asymmetry, dysphagia, dysarthria, hemiparesis, hemisensory deficits, vertigo. HEENT: Negative for head trauma, neck trauma, neck stiffness, photophobia, phonophobia, sinusitis, rhinitis. PULMONARY: Negative for shortness of breath. Negative for wheezing, cough or hemoptysis. GASTROINTESTINAL: Negative for abdominal pain, nausea, vomiting, bright red blood per rectum, melena. GENITOURINARY: Negative for dysuria, hematuria or urinary incontinence. INTEGUMENTARY: Negative for rashes, cuts, insect bites. RHEUMATOLOGIC: Negative for joint pains, photosensitive rashes. HEMATOLOGIC: Negative for abnormal bruising, frequent infections or bleeding. Prior cardiac studies: Encounter Date: 11/08/23 ECG 12 lead Result Value Ventricular Rate ECG 82 Atrial Rate 82 P-R Interval 156 QRS Duration 114 Q-T Interval 426 QTc 497 P Wave [place] 71 R [place] -56 T [place] 23 ECG Interpretation Sinus rhythm with occasional Premature ventricular complexes and Premature atrial complexes Left axis deviation Minimal voltage criteria for LVH, may be normal variant ( [place] product ) Inferior infarction , age undetermined Anterolateral infarct , age undetermined QTcB >= 480 msec Abnormal ECG Confirmed by Darrius Gonzales ([id number]), online content editor Yen Jeffery ([id number]) on 11/10/2023 6:27:35 AM *Note: Due to a large number of results and/or encounters for the requested time period, some results have not been displayed. A complete set of results can be found in Results Review. Echo: 11/08/23 TRANSTHORACIC ECHOCARDIOGRAM (TTE) COMPLETE (CONTRAST/BUBBLE/3D PRN) 11/10/2023 11/10/2023 Interpretation Summary Left Ventricle: Left ventricle cavity is mildly dilated. There is mild concentric hypertrophy. Systolic function is moderately decreased with an ejection fraction of 35-40%. LV global longitudal strain is reduced. Global longitudinal strain is -14.8%. The inferior wall and the inferolateral wall robby ear moderately hypokinetic. Left ventricle cavity is mildly dilated. Left ventricular systolic function is moderately decreasedwith an ejection fraction of 35-40%. Right Ventricle: Right ventricle cavity appears normal. Systolic function is normal. Left Atrium: Left atrium cavity size is normal. Aortic Valve: Number of aortic valve cusps cannot be determined. The leaflets are not thickened andexhibit normal excursion. There is no regurgitation or stenosis. Signed by: Bob Marte MD on 11/10/2023 9:08 AM Vasc: 11/08/23 VAS US ANKLE BRACHIAL INDEX 11/09/2023 11/09/2023 Interpretation Summary Right: Ankle brachial index suggestive of normal arterial perfusion to the level of the ankle at rest. The PVR waveforms at the ankle and metatarsal level are normal. Abnormal toe brachial index of the right lower extremity. Left: Ankle brachial index suggestive of normal arterial perfusion to the level of the ankle at rest. The PVR waveforms at the ankle and metatarsal level are normal. Abnormal toe brachial index of the left lower extremity. Signed by: Kang Blackwell MD on 11/09/2023 3:23 PM Past Medical History: Diagnosis Date Congestive heart failure (CHF) (CMS/HCC) COPD (chronic obstructive pulmonary disease) (CMS/HCC) Coronary artery disease Hyperlipidemia Hypertension Myocardial infarction (CMS/HCC) Peripheral arterial disease with history of revascularization (CMS/HCC) Vocal cord cancer (CMS/HCC) Past Surgical History: Procedure Laterality Date CARDIAC CATHETERIZATION CORONARY STENT PLACEMENT HIP ARTHROPLASTY Left 2017 STENT PERIPHERAL VASCULAR THROAT SURGERY Family History Problem Relation Name Age of Onset Lung cancer Brother Social History Socioeconomic History Marital status: Spouse name: Not on file Number of children: Not on file Years of education: Not on file Highest education level: Not on file Occupational History Not on file Tobacco Use Smoking status: Former Types: Cigarettes Smokeless tobacco: Never Vaping Use Vaping status: Never Used Substance and Sexual Activity Alcohol use: Never Drug use: Never Sexual activity: Not on file Other Topics Concern Not on file Social History Narrative Not on file I have personally reviewed the patient's past medical, surgical and family history and made changesas appropriate. Current Outpatient Medications on File Prior to Visit Medication Sig Dispense Refill albuterol HFA (PROAIR HFA ; PROVENTIL HFA ; VENTOLIN HFA) 90 mcg/actuation inhaler Inhale 2 puffs by mouth every 6 (six) hours if needed for wheezing. allopurinoL (ZYLOPRIM) 100 mg tablet Take 1 tablet (100 mg total) by mouth 1 (one) time each day. amLODIPine (NORVASC) 5 mg tablet Take 1 tablet (5 mg total) by mouth 1 (one) time each day. aspirin 81 mg EC tablet Take 1 tablet (81 mg total) by mouth 2 (two) times a day. 60 tablet 0 atorvastatin (LIPITOR) 40 mg tablet Take 1 tablet (40 mg total) by mouth at bedtime. 30 each 11 cholecalciferol (VITAMIN D-3) 25 mcg (1,000 unit) tablet Take 1 tablet (1,000 Units total) by mouth1 (one) time each day. dapagliflozin propanediol (FARXIGA) 10 mg tablet Take 1 tablet (10 mg total) by mouth 1 (one) time each day. 30 each 0 ferrous sulfate (High Potency Iron) 27 mg iron tablet Take 27 mg by mouth 1 (one) time each day. finasteride (PROSCAR) 5 mg tablet Take 1 tablet (5 mg total) by mouth 1 (one) time each day. fluticasone propion-salmeteroL (ADVAIR DISKUS) 100-50 mcg/dose diskus inhaler Inhale 1 puff by mouth 2 (two) times a day. Rinse mouth with water after use to reduce aftertaste and incidence of candidiasis. Do not swallow. furosemide (LASIX) 40 mg tablet Take 1 tablet (40 mg total) by mouth 1 (one) time each day if needed (edema). [] HYDROcodone-acetaminophen (NORCO) 5-325 mg per tablet Take 1 tablet by mouth every 4 (four) hours if needed for severe pain for up to 7 days. Max Daily Amount: 6 tablets 28 each 0 [] methylPREDNISolone (MEDROL DOSPAK) 4 mg tablet Take as directed on package. 21 tablet 0 metoprolol succinate (TOPROL-XL) 25 mg 24 hr tablet Take 1 tablet (25 mg total) by mouth 1 (one) time each day. Do not crush or chew. 30 each 11 oxyCODONE (ROXICODONE) 5 mg immediate release tablet Take 1 tablet (5 mg total) by mouth every 4 (four) hours if needed (moderate pain or when therapies for mild pain were not effective). Max Daily Amount: 30 mg 15 tablet 0 pantoprazole (PROTONIX) 40 mg EC tablet Take 1 tablet (40 mg total) by mouth 1 (one) time each day before breakfast. Do not crush, chew, or split. phenylephrine (SUDAFED PE) 10 mg tablet Take 1 tablet (10 mg total) by mouth 2 (two) times a day ifneeded for congestion. potassium chloride (KLOR-CON) 10 mEq CR tablet Take 1 tablet (10 mEq total) by mouth 2 (two) times a day. rOPINIRole (REQUIP) 2 mg tablet Take 1 tablet (2 mg total) by mouth 2 (two) times a day. sacubitriL-valsartan (ENTRESTO) 24-26 mg per tablet Take 1 tablet by mouth 2 (two) times a day. 60 each 0 sour hernandez extract (Tart Hernandez Extract) 1,000 mg capsule Take 1,000 mg by mouth 1 (one) time eachday. spironolactone (ALDACTONE) 25 mg tablet Take 1 tablet (25 mg total) by mouth 1 (one) time each day. spironolactone (ALDACTONE) 25 mg tablet Take 1 tablet (25 mg total) by mouth 1 (one) time each day.30 each 5 tamsulosin (FLOMAX) 0.4 mg 24 hr capsule Take 1 capsule (0.4 mg total) by mouth 1 (one) time each day with breakfast. Capsules should be taken 30 minutes following the same meal each day. tiotropium (SPIRIVA) 18 mcg per inhalation capsule Place 1 capsule (18 mcg total) into inhaler and inhale 1 (one) time each day. UNABLE TO FIND Take 450 mg by mouth 1 (one) time each day. Med Name: Apple Cider Vinegar UNABLE TO FIND Take 1 tablet by mouth 1 (one) time each day. Med Name: The Prostate Formula No current facility-administered medications on file prior to visit. No Known Allergies Physical Exam Visit Vitals Wt 84.3 kg (185 lb 14.4 oz) BMI 26.67 kg/m Smoking Status Former BSA 2.02 m Wt Readings from Last 3 Encounters: 11/20/23 84.3 kg (185 lb 14.4 oz) 10/01/24 99 kg (218 lb 4.1 oz) 11/09/23 99.8 kg (220 lb) General appearance/constitutional: The patient is in no distress. EYES: Extraocular motions are normal. Ears, Nose, Mouth and Throat: Normocephalic. Neck: No neck masses. Respiratory/chest: Clear to auscultation Heart: Regular rate and rhythm. S1, S2 normal. Abdomen/gastrointestinal: Non distended Extremities: There is no peripheral lower extremity edema. Musculoskeletal: Normal range of motion in the arms and legs. Normal gait. Back: Symmetric. Pulses: Bilateral radial pulses are 2+ and symmetric. Skin: Skin color, texture normal. Neurologic/psychiatric: The patient is oriented to time, place and person. Mood, memory, affect andjudgment are appropriate for this presentation Labs: Lab Results Component Value Date WBC 4.3 (L) 11/13/2023 HGB 14.1 11/13/2023 HCT 43.6 11/13/2023 MCV 92.8 11/13/2023 PLT 143 11/13/2023 Lab Results Component Value Date GLUCOSE 161 (H) 11/13/2023 CALCIUM 8.5 (L) 11/13/2023 NA 138 11/13/2023 K 4.3 11/13/2023 CO2 24 11/13/2023 CL 107 11/13/2023 BUN 25 (H) 11/13/2023 CREATININE 1.11 11/13/2023 No results found for: TSH Lab Results Component Value Date INR 0.9 11/09/2023 documented in this encounterAmerican Academic Health [id number] History of Present illness Narrative* Danny Fuller LPN - 11/13/2023 4:55 PM EDT [place] script held at service desk lead for daughter in law (Tiffani) to pick up and delivery driver today. (11/13/2023) * Brittany Dominguez RN - 11/13/2023 4:04 PM EDT Yoni Villalpando has received verbal and printed discharge instructions in their preferred language. Alldischarge medications have been reviewed and confirmed with the patient and spouse. Both were educated on signs and symptoms of worsening condition and instructed to contact emergency services if life- threatening symptoms occur. Patient verbally accepts discharge plan and all questions have been answered. All belongings returned to patient. * Milan Castro MD - 11/13/2023 3:21 PM EDT ORTHOPEDIC PROGRESS NOTE Principal Problem: Acute congestive heart failure, unspecified heart failure type (CMS/HCC) LOS: 4 days Subjective He was ambulating around the room when I came to see him. No new issues. Vital signs in last 24 hours: Temp: 36.4 C (97.5 F) (11/12 1158) Heart Rate: 65 (11/12 1158) Resp: 16 (11/12 1158) BP: 125/70 (11/12 1158) Recent Results: Lab Results Component Value Date WBC 4.3 (L) 11/13/2023 HGB 14.1 11/13/2023 HCT 43.6 11/13/2023 MCV 92.8 11/13/2023 PLT 143 11/13/2023 Lab Results Component Value Date GLUCOSE 161 (H) 11/13/2023 CALCIUM 8.5 (L) 11/13/2023 NA 138 11/13/2023 K 4.3 11/13/2023 CO2 24 11/13/2023 CL 107 11/13/2023 BUN 25 (H) 11/13/2023 CREATININE 1.11 11/13/2023 Physical Exam: Gen: NAD, pleasant LLE: Dressing about the left foot clean/dry/intact without strikethrough. Able to flex and extend lesser toes. Sensation intact to light touch about the exposed toes but diminished per his reported baseline. Toes warm well-perfused. Assessment/Plan Yoni Villalpando is a 78 y.o. year old male with left great toe osteomyelitis POD#3 after left great toepartial amputation with Dr. Castro on 11/10/2023. Weightbearing status: Heel only weightbearing LLE DVT prophylaxis: recommend aspirin 81 mg twice daily Antibiotics: per primary Follow-up intra-op cultures: NGTD PT/OT Pain control as ordered Dispo: Pending antibiotic finalization. Orthopedically stable for discharge when patient is mobilizing with PT, pain is under control with PO medications, antibiotics finalized, and medically appropriate. Hopefully discharge home today. Follow-up with me in 2 weeks Please call me with questions or to coordinate care . Milan Castro MD [facility] [phone] * Swati Mansfield RN - 11/13/2023 12:48 PM EDT 11/13/23 1248 Transportation Transportation at discharge Family Final Discharge Disposition Home or Self Care Case Management Discharge Note Coordination of Care Handover Yoni Villalpando : 1945 Living Arrangements: Spouse/significant other Support Systems: Spouse/significant other Advance Directive: Patient has advance directive, copy not in chart Advance Directive not in Chart: Copy requested from patient/family Information Provided on Healthcare Directives: No Patient Requests Assistance: No Do we have authorization to contact this patient's emergency contact?: Yes Extended Emergency Contact Information Primary Emergency Contact: Hailey Villalpando Mobile Relation: Spouse Preferred language: [place]i Manufacturers Representative needed? No Secondary Emergency Contact: garrett villalpando Mobile Relation: Son Manufacturers Representative needed? No SIOH Flowsheet Completed?: Yes, no needs at this time Medication Affordability : No concerns related to payment for meds Medical Admission Information Main Diagnosis: Acute congestive heart failure, unspecified heart failure type ([facility]/HCC) Past Medical History: Diagnosis Date Congestive heart failure (CHF) ([facility]) COPD (chronic obstructive pulmonary disease) ([facility]) Coronary artery disease Hyperlipidemia Hypertension Myocardial infarction ([facility]/HCC) Peripheral arterial disease with history of revascularization ([facility]) Vocal cord cancer ([facility]/HCC) Discharge Information Final Discharge Disposition: (P) Home or Self Care N/A Facility Phone Numbers for report: N/A Transportation at discharge: (P) Family // // Discharge plan communicated with patient and all are in agreement with discharge plan. DME on admission: Assistive Devices: Other (Comment), Cane (cpap ([employer]), has access to spouses'walker and wheelchair depending on what she is using.) (DME provider is: N/A) DME ordered @ discharge: None Community Service(s) on admission: None New Community Referrals made to: None Discharge concerns: None Narrative Note : The patient has an order to discharge home today. He is weaned off the oxygen. He will stay in town for f/u appointments with Ortho and Cardiology. A FWW was delivered to his room. No other needs. CM will sign off. Miscellaneous Information Vitals @ Discharge: Visit Vitals BP 125/70 Pulse 65 Temp 36.4 C (97.5 F) (Oral) Resp 16 Ht 1.778 m (70) Wt 99 kg (218 lb 4.1 oz) SpO2 92% BMI 31.32 kg/m Smoking Status Former BSA 2.17 m Diet Orders: Activity Instructions No restrictions, resume your usual activities Diet Instructions Discharge Diet: Return to previous diet 2 gm Low sodium diet, 2L daily fluid restriction. Patient should contact a provider if they experience Notify provider - General Allergies: No Known Allergies Mobility Status: Mobility: Use of assistive device/requires assist of two people Readmission Risk Score @ Discharge: Predictive Model Details 22% Factor Value Calculated 11/13/2023 12:13 Number of active inpatient medication orders 56 IP Risk of Unplanned Readmission Model Active antipsychotic inpatient medication order present ECG/EKG order present in last 6 months Latest calcium low (8.5 mg/dL) Latest BUN high (25 mg/dL) Imaging order present in last 6 months Age 78 Number of ED visits in last six months 1 Number of hospitalizations in last year 1 Active corticosteroid inpatient medication order present Current length of stay 4.384 days Charlson Comorbidity Index 2 Future appointment scheduled Active ulcer inpatient medication order present * Alba Martin NP - 11/13/2023 12:31 PM EDT Host Committee Query Response Note PATIENT: YONI VILLALPANDO : 1945 ADMIT DATE: 11/09/2023 3:00 AM DISCH DATE: RESPONDING PROVIDER #: [id number] PROVIDER RESPONSE TEXT: Done QUERY TEXT: There is documentation of right foot ulcer and left great toe in the Orthopedic consult dated 11/08 (ZAIN Leone). Please further clarify the following regarding the ulcers: Type of ulcers each site --Pressure ulcer --Vascular ulcer --Other ulcer, please specify in the notes Depth/Severity of ulcer --Skin breakdown only --Fat layer exposed (e.g. subcutaneous tissue) --Other depth/severity (please specify in the notes) Clinical findings: --Orthopedic consult 11/08 ZAIN Leone: -- Right lower extremity: There is an approximately 1.5 cm x 1.5 cm circular wound over the lateralaspect of the plantar midfoot. No surrounding erythema noted. No drainage noted. -- Left lower extremity: There is an approximately 1.5 cm x 1.5 cm circular wound to the plantar distal aspect of the left great toe. Swelling noted throughout the left great toe. --Orthopedic consult 11/09 Dr. Castro: --There is a superficial ulcer on the plantar aspect of the foot over the fifth metatarsal head there is good granulation tissue at the base, mild hyperkeratotic skin around the periphery. Does not probe to bone. No surrounding cellulitis; Does not have diabetes with neuropathy. -- There is an ulcer over the plantar aspect of the great toe with surrounding cellulitis. Purulentdrainage when I squeeze on this. Treatment/monitoring: --Orthopedic consult 11/08 --11/09 left great toe amputation through the proximal phalange (Operative note) Risk Factors: --Cardiology Consult 11/08 ZAIN Fulton: He additionally has a history of peripheral arterial disease with previous lower extremity DOMINATRIX and stenting by vascular surgery. If you have any questions, please contact: YUE Myles, RN [phone] The patient's clinical indicators include: Options provided: -- Respond - Create new note now -- Disagree - Not applicable / Not valid Query created by: Rosie Werner on 11/13/2023 12:25 PM Electronically signed by: ALBA MARTIN NP 11/13/2023 12:31 PM * Alba Martin NP - 11/13/2023 7:38 AM EDT Images from the original note were not included. Progress Note Chief Complaint/Visit Reason: Left lower extremity and left great toe swelling Impression: Patient is a 78-year-old obese male with a PMH as noted below who presented to [facility] [place]23 with complaints of left lower lower extremity swelling as well as left great toe edema with progressive dyspnea and worsening wound. Chest x- ray showed parabronchial cuffing seen in bronchitis as well as increased interstitial lung markings. X-ray of his left foot showed lucency and commuted fracture of the great toe thought to be secondary to osteomyelitis versus posttraumatic fracture. He was subsequently admitted with consult orthopedic services. GEORGETTE 11/08 showed normal perfusion bilaterally. MRI left lower extremity showed soft tissue swelling and subcutaneous edema of the great toe, presumably cellulitis but no evidence of abscess or fluid collection no evidence of tendon tear, tenosynovitis. Cardiology was also consulted. TTE 11/09 showed an EF of 35-40% with an inferior and inferior lateral wall being mildly hypokinetic with an mildly elevated LV. Patient has a primary transition mgr rn [facility] that he follows with. Diagnosis: Commuted fracture of the left great toe with findings concerning for osteomyelitis. Status post left great toe partial amputation 11/10/2023 Cellulitis of the left great toe, see above RLE lateral wound, NOS LLE plantar left great toe wound NOS AECOPD, suspected on admission Acute on chronic combined systolic and diastolic heart failure, TTE 11/10/2023 with EF 35-40%, baseline unknown Ischemic cardiomyopathy given history of prior [place] and PCI/CAD CAD with history of PCI over 10 years prior, follows with a primary transition mgr rn in [place] Peripheral artery disease Hypertension Dyslipidemia Morbidly obese, BMI greater than 30 Anemia, normocytic, NOS Thrombocytopenia, mild, NOS Elevated troponin thought to be related to demand ischemia, workup in progress GERD History of gout Remote history of DVT, per patient Iron deviancy anemia in patient with heart failure Plan: Orthopedics on board; postop day 2 of left great toe partial amputation. Plan for outpatient follow-up in 2 weeks. Heel only nonweightbearing left lower extremity Cardiology signed off; arranging outpatient follow-up in 1-2 weeks For now we will continue his current medical regimen Continue to monitor routine labs Chest xray yesterday with mild bibasilar opacities; negative procal. Started on solumedrol Encourage aggressive pulmonary hygiene; IS and pep therapy. O2 PRN to maintain spo2 > 90%. Currently on 3 L NC PT/OT consulted with recommendation for home independently DVT prophylaxis: 81 mg aspirin twice daily Blood Product Consent: NA Code Status: Full code updated at bedside. Disposition: Anticipate possible discharge home today vs tomorrow once O2 can be weaned off [facility] Inpatient Care 7 am to 5 pm [facility] 5 Haiku/secure chat or Page at [phone] with full number After 5 pm pls call the [facility] ER pager Subjective: Patient sitting up on the side of the bed. at bedside. He states he feels much better today. Working on his IS. BM yesterday. Review of Systems Constitutional: Negative. Negative for chills and fever. Respiratory: Positive for cough and shortness of breath. Negative for wheezing. Cardiovascular: Negative. Negative for chest pain and palpitations. Gastrointestinal: Negative for abdominal distention, abdominal pain, constipation, diarrhea, nauseaand vomiting. Neurological: Negative. Negative for dizziness and light-headedness. Psychiatric/Behavioral: Negative. Negative for agitation, behavioral problems and hallucinations. Vitals and Physical exam: Patient Vitals for the past 24 hrs: BP Temp Temp src Pulse Resp SpO2 Weight 11/13/23 0506 119/65 36.3 C (97.3 F) Oral 60 18 (!) 88 % 99 kg (218 lb 4.1 oz) 11/13/23 0100 -- -- -- -- -- 91 % -- 11/13/23 0035 (!) 143/78 -- -- 62 18 (!) 85 % -- 11/12/23 1735 (!) 149/68 37 C (98.6 F) Oral 64 16 90 % -- 11/12/23 1159 115/69 36.4 C (97.5 F) Oral 57 16 90 % -- 11/12/23 0900 -- -- -- -- -- 93 % -- 11/12/23 0836 (!) 167/83 37 C (98.6 F) Oral -- 16 92 % -- Body mass index is 31.32 kg/m . No intake or output data in the 24 hours ending 11/13/23 0738 Physical Exam Vitals reviewed. Constitutional: Appearance: Normal appearance. He is not ill-appearing. Cardiovascular: Rate and Rhythm: Normal rate and regular rhythm. Heart sounds: Normal heart sounds. No murmur heard. No friction rub. No gallop. Pulmonary: Breath sounds: No stridor. Wheezing present. No rhonchi or rales. Abdominal: General: Bowel sounds are normal. There is no distension. Palpations: Abdomen is soft. There is no mass. Tenderness: There is no abdominal tenderness. There is no guarding or rebound. Musculoskeletal: General: Normal range of motion. Skin: General: Skin is warm and dry. Neurological: General: No focal deficit present. Mental Status: He is alert and oriented to person, place, and time. Psychiatric: Mood and Affect: Mood normal. Behavior: Behavior normal. Recent Lab Results: Results from last 7 days Lab Units 11/13/23 0511 11/12/23 0331 11/10/23 0451 11/09/23 0547 11/08/23 2113 SODIUM mmol/L 138 135* 140 142 140 POTASSIUM mmol/L 4.3 4.3 3.8 3.9 4.2 CHLORIDE mmol/L 107 103 108* 107 110* CO2 mmol/L 24 23 25 25 23 BUN mg/dL 25* 23* 21* 16 16 CREATININE mg/dL 1.11 1.21 0.96 1.22 1.19 Results from last 7 days Lab Units 11/13/23 0511 11/12/23 0331 11/11/23 0416 11/10/23 0451 11/08/23 2113 WBC AUTO K/mcL 4.3* 7.6 6.7 5.0 4.0* HEMOGLOBIN g/dL 14.1 13.4* 11.4* 11.9* 12.9* HEMATOCRIT % 43.6 41.7 36.0* 36.6* 39.4 PLATELETS K/mcL 143 147 126* 131* 139* MCV FL 92.8 93.9 93.3 92.0 92.9 Results from last 7 days Lab Units 11/12/23 0331 11/12/23 0049 11/11/23 1823 HIGH SENSITIVITY TROPONIN I ng/L 120* 117* 49* Recent Imaging Findings: XR Chest 1 View Narrative: EXAMINATION TYPE: XR CHEST 1 VIEW DATE OF EXAM : 11/12/2023 10:38 AM HISTORY: pneumonia COMPARISON: 11/08/2023 FINDINGS: Loop recorder device. Stable cardiomediastinal silhouette. Low lung volumes. There are grossly stable mild bibasilar opacities of uncertain chronicity. There is no large pleural effusion. No pneumothorax. Impression: No significant interval change. -------- FINAL REPORT -------- Dictated By: Kuldeep Angulo Dictated Date: 11/12/2023 11:13 Assigned Physician: Kuldeep Angulo Reviewed and Electronically Signed By: Kuldeep Angulo Signed Date: 11/12/2023 11:14 Workstation ID: [id number] Transcribed By: Self Edit Transcribed Date: 11/12/2023 11:13 Allergies: No Known Allergies * Swati Mansfield RN - 11/12/2023 10:34 AM EDT 11/12/23 1033 Initial Transition Plan Initial Transition Plan Home Back up Transition Plan Back up Transition plan Home Health Care Transportation Transportation at discharge Family The patient is admitted with CHF and toe osteo, he is s/p partial amputation per Ortho. He ambulated 150ft with therapy and a FWW has been ordered for home. He lives in [place] and is visiting here with family currently.He will follow up with his Armed Security Officer in [place]. He has required O2 today and CIC following.CM will continue to follow for discharge needs/plans. * Alba Martin NP - 11/12/2023 10:12 AM EDT Images from the original note were not included. Progress Note Chief Complaint/Visit Reason: Left lower extremity and left great toe swelling Impression: Patient is a 78-year-old obese male with a PMH as noted below who presented to [facility] 11/09/2023 with complaints of left lower lower extremity swelling as well as left great toe edema with progressive dyspnea and worsening wound. Chest x- ray showed parabronchial cuffing seen in bronchitis as well as increased interstitial lung markings. X-ray of his left foot showed lucency and commuted fracture of the great toe thought to be secondary to osteomyelitis versus posttraumatic fracture. He was subsequently admitted with consult orthopedic services. GEORGETTE 11/08 showed normal perfusion bilaterally. MRI left lower extremity showed soft tissue swelling and subcutaneous edema of the great toe, presumably cellulitis but no evidence of abscess or fluid collection no evidence of tendon tear, tenosynovitis. Cardiology was also consulted. TTE 11/09 showed an EF of 35-40% with an inferior and inferior lateral wall being mildly hypokinetic with an mildly elevated LV. Patient has a primary transition mgr rn [facility] that he follows with. Diagnosis: Commuted fracture of the left great toe with findings concerning for osteomyelitis. Status post left great toe partial amputation 11/10/2023 Cellulitis of the left great toe, see above AECOPD, suspected on admission Acute on chronic combined systolic and diastolic heart failure, TTE 11/10/2023 with EF 35-40%, baseline unknown Ischemic cardiomyopathy given history of prior [place] and PCI/CAD CAD with history of PCI over 10 years prior, follows with a primary transition mgr rn in [place] Peripheral artery disease Hypertension Dyslipidemia Morbidly obese, BMI greater than 30 Anemia, normocytic, NOS Thrombocytopenia, mild, NOS Elevated troponin thought to be related to demand ischemia, workup in progress GERD History of gout Remote history of DVT, per patient Iron deviancy anemia in patient with heart failure Plan: Orthopedics on board; postop day 2 of left great toe partial amputation. Plan for outpatient follow-up in 2 weeks. Heel only nonweightbearing left lower extremity Cardiology signed off; arranging outpatient follow-up in 1-2 weeks For now we will continue his current medical regimen Continue bowel regimen; I did ask the nurse to give PRN. Last BM 4 days ago. Continue to monitor routine labs IntraOp cultures no growth to date Will order chest xray and repeat procal as patient significantly wheezy and dyspneic on exam. Encourage aggressive pulmonary hygiene; IS and pep therapy. O2 PRN to maintain spo2 > 90%. Currently on 3 L NC PT/OT consulted with recommendation for home independently DVT prophylaxis: 81 mg aspirin twice daily Blood Product Consent: NA Code Status: Full code updated at bedside. Disposition: Anticipate possible discharge home today Eunice Martin CNP [facility] 7 am to 5 pm [facility] 5 Haiku/secure chat or Page at [phone] with full number After 5 pm pls call the [facility] ER pager Subjective: Patient resting in bed; noticeably dyspenic. and a friend present at bedside. He endorses shortness of breath and cough. Also endorses constipation; last BM 4 days ago. Review of Systems Constitutional: Negative. Negative for chills and fever. Respiratory: Positive for cough and shortness of breath. Negative for wheezing. Cardiovascular: Negative. Negative for chest pain and palpitations. Gastrointestinal: Positive for constipation. Negative for abdominal distention, abdominal pain, diarrhea, nausea and vomiting. Neurological: Negative. Negative for dizziness and light-headedness. Psychiatric/Behavioral: Negative. Negative for agitation, behavioral problems and hallucinations. Vitals and Physical exam: Patient Vitals for the past 24 hrs: BP Temp Temp src Pulse Resp SpO2 11/12/23 0836 (!) 167/83 37 C (98.6 F) Oral -- 16 92 % 11/12/23 0331 114/54 37 C (98.6 F) Oral 74 12 90 % 11/11/23 2323 (!) 141/93 37.5 C (99.5 F) Oral 72 -- 91 % 11/11/232008 (!) 163/95 37 C (98.6 F) Oral 84 12 91 % 11/11/23 1628 (!) 163/75 36.4 C (97.5 F) Oral 74 18 93 % 11/11/23 1216 (!) 147/81 36.6 C (97.9 F) Oral 63 18 91 % 11/11/23 0946 (!) 140/85 36.6 C (97.9 F) Oral 91 18 (!) 89 % Body mass index is 31.57 kg/m . No intake or output data in the 24 hours ending 11/12/23 0852 Physical Exam Vitals reviewed. Constitutional: Appearance: Normal appearance. He is not ill-appearing. Cardiovascular: Rate and Rhythm: Normal rate and regular rhythm. Heart sounds: Normal heart sounds. No murmur heard. No friction rub. No gallop. Pulmonary: Breath sounds: No stridor. Wheezing present. No rhonchi or rales. Abdominal: General: Bowel sounds are normal. There is no distension. Palpations: Abdomen is soft. There is no mass. Tenderness: There is no abdominal tenderness. There is no guarding or rebound. Musculoskeletal: General: Normal range of motion. Skin: General: Skin is warm and dry. Neurological: General: No focal deficit present. Mental Status: He is alert and oriented to person, place, and time. Psychiatric: Mood and Affect: Mood normal. Behavior: Behavior normal. Recent Lab Results: Results from last 7 days Lab Units 11/12/23 0331 11/10/23 0451 11/09/23 0547 11/08/23 2113 SODIUM mmol/L 135* 140 142 140 POTASSIUM mmol/L 4.3 3.8 3.9 4.2 CHLORIDE mmol/L 103 108* 107 110* CO2 mmol/L 23 25 25 23 BUN mg/dL 23* 21* 16 16 CREATININE mg/dL 1.21 0.96 1.22 1.19 Results from last 7 days Lab Units 11/12/23 0331 11/11/23 0416 11/10/23 0451 11/08/23 2113 WBC AUTO K/mcL 7.6 6.7 5.0 4.0* HEMOGLOBIN g/dL 13.4* 11.4* 11.9* 12.9* HEMATOCRIT % 41.7 36.0* 36.6* 39.4 PLATELETS K/mcL 147 126* 131* 139* MCV FL 93.9 93.3 92.0 92.9 Results from last 7 days Lab Units 11/12/23 0331 11/12/23 0049 11/11/23 1823 HIGH SENSITIVITY TROPONIN I ng/L 120* 117* 49* Recent Imaging Findings: Transthoracic echocardiogram (TTE) complete with PRN contrast, bubble, strain, and 3D order panel Left Ventricle: Left ventricle cavity is mildly dilated. There is mild concentric hypertrophy. Systolic function is moderately decreased with an ejection fraction of 35-40%. LV global longitudal strain is reduced. Global longitudinal strain is -14.8%. The inferior wall and the inferolateral wall appear moderately hypokinetic. Left ventricle cavity is mildly dilated. Left ventricular systolic function is moderately decreased with an ejection fraction of 35-40%. Right Ventricle: Right ventricle cavity appears normal. Systolic function is normal. Left Atrium: Left atrium cavity size is normal. Aortic Valve: Number of aortic valve cusps cannot be determined. The leaflets are not thickened and exhibit normal excursion. There is no regurgitation or stenosis. Allergies: No Known Allergies * ZAIN Monterroso - 11/12/2023 6:57 AM EDT Images from the original note were not included. CARDIOLOGY PROGRESS NOTE Impression: 78-year-old gentleman presented with osteomyelitis of the left great toe. He had evidence of volumeoverload on presentation prompting cardiology consultation -Congestive heart failure; acute on chronic systolic dysfunction. He has a history of ischemic cardiomyopathy based on his recollection but cannot provide any details. Echo this admission demonstrates left ventricular ejection fraction of 35 to 40% with hypokinesis of the inferior and inferolateralwalls. No prior studies available for comparison. Currently appears to be euvolemic. -Ischemic cardiomyopathy; EF 35 to 40% by echo this admission as noted above. -Atherosclerotic coronary artery disease with remote IN and PCI stenting to an unknown vessel over 10 years ago in [place]. He does have a stent card in his wallet but does not have that here with him at the hospital. ECG suggestive of old inferolateral IN which corresponds to wall motion abnormality on echo. He denies any anginal symptoms. He had a very mild, adynamic troponin elevation not feltto represent ACS, rather demand ischemia. He has denied any chest discomfort. -Arterial disease with previous lower extremity revascularization. Bilateral lower extremity ABIs this admission demonstrated normal perfusion to the level of the ankle at rest with abnormal toe brachial index bilateral lower extremities -Benign essential hypertension -Hyperlipidemia -COPD with prior tobacco use, quitting in 2009 -Left big toe osteomyelitis; status post left great toe amputation through the proximal phalange 11/02/2023. Recommendations: He will likely stay in the [place] area for the next few weeks while he recovers and follows up with surgery prior to returning to [place]. He will reestablish with cardiology there. We will arrangeclose outpatient follow-up in our office in 1 to 2 weeks to adjust/titrate meds as necessary and plan to repeat metabolic panel. Recommended discharge cardiac meds: -Aspirin 81 mg daily -Metoprolol succinate 25 mg daily -Entresto 24/26 mg twice daily -Aldactone 25 mg daily -Farxiga 10 mg daily -Furosemide 40 mg daily as needed. -Atorvastatin 40 mg daily I have stopped his serial troponin levels. Okay to discharge from cardiac standpoint. Will sign off. Available if needed. No valsartan or amlodipine at discharge ZAIN Ruiz 11/12/23 6:57 AM EDT [facility] Thank you for this consultation. If you have any questions, please feel free to call. First Call Mon-Sun [id number]: [facility] [phone] [facility] [phone] [facility] [phone] After hours/Weekends: [phone] For listed Attendings On-Call at each site click here Primary Armed Security Officer: Rosetta Subjective / Interval History: Patient sleeping but easily awakens. He has been wearing supplemental oxygen at night. He denies any chest pain. He has ambulated. We started him on aggressive guideline directed medical therapy. He seems to be tolerating this well. ROS: CARDIAC: Negative for chest pain, palpitations, dyspnea on exertion, paroxysmal nocturnal dyspnea, peripheral edema. GENERAL: Negative for any nausea, vomiting, fevers, chills, or weight loss. PULMONARY: Negative for any shortness of breath, wheezing, cough or hemoptysis. Cardiographics: Telemetry last 24 hours personally reviewed which shows: Normal sinus rhythm. Isolated PVCs. Sinus bradycardia while sleeping. TRANSTHORACIC ECHOCARDIOGRAM (TTE) COMPLETE (CONTRAST/BUBBLE/3D PRN) 11/10/2023 Interpretation Summary Left Ventricle: Left ventricle cavity is mildly dilated. There is mild concentric hypertrophy. Systolic function is moderately decreased with an ejection fraction of 35-40%. LV global longitudal strain is reduced. Global longitudinal strain is -14.8%. The inferior wall and the inferolateral wall robby ear moderately hypokinetic. Left ventricle cavity is mildly dilated. Left ventricular systolic function is moderately decreasedwith an ejection fraction of 35-40%. Right Ventricle: Right ventricle cavity appears normal. Systolic function is normal. Left Atrium: Left atrium cavity size is normal. Aortic Valve: Number of aortic valve cusps cannot be determined. The leaflets are not thickened andexhibit normal excursion. There is no regurgitation or stenosis. Signed by: Bob Marte MD on 11/10/2023 9:08 AM Objective: Patient Vitals for the past 24 hrs: BP Temp Temp src Pulse Resp SpO2 11/12/23 0331 114/54 37 C (98.6 F) Oral 74 12 90 % 11/11/23 2323 (!) 141/93 37.5 C (99.5 F) Oral 72 -- 91 % 11/11/232008 (!) 163/95 37 C (98.6 F) Oral 84 12 91 % 11/11/23 1628 (!) 163/75 36.4 C (97.5 F) Oral 74 18 93 % 11/11/23 1216 (!) 147/81 36.6 C (97.9 F) Oral 63 18 91 % 11/11/23 0946 (!) 140/85 36.6 C (97.9 F) Oral 91 18 (!) 89 % No intake or output data in the 24 hours ending 11/12/23 0657 Wt Readings from Last 3 Encounters: 11/10/23 99.8 kg (220 lb) 11/09/23 99.8 kg (220 lb) 01/07/23 96.1 kg (211 lb 12.8 oz) Body mass index is 31.57 kg/m . Physical Examination: General appearance/constitutional: The patient is in no distress. EYES: No xanthelasma. Normal conjunctiva. Ears, Nose, Mouth and Throat: Normocephalic. Limited dentition examination. Neck: No neck tenderness, masses or nodules. Respiratory/chest: Faint expiratory wheezes. No rales. Heart: Regular rate and rhythm. S1, S2 normal. No obvious S3 or murmurs. There is no jugular venousdistension noted. Abdomen/gastrointestinal: Soft, non-tender. Bowel sounds normal. Extremities: There is no significant peripheral lower extremity edema. Left lower extremity/foot isbandaged. Back: Not assessed due to patient positioning in bed. Pulses: Bilateral radial pulses are 2+ and symmetric. Skin: Skin color, texture normal. No rashes or lesions noted by limited skin examination Neurologic/psychiatric: The patient is oriented to time, place and person. Mood, memory, affect andjudgment are appropriate for this presentation Labs: Lab Results Component Value Date WBC 7.6 11/12/2023 HGB 13.4 (L) 11/12/2023 HCT 41.7 11/12/2023 MCV 93.9 11/12/2023 PLT 147 11/12/2023 Lab Results Component Value Date GLUCOSE 85 11/12/2023 CALCIUM 8.1 (L) 11/12/2023 NA 135 (L) 11/12/2023 K 4.3 11/12/2023 CO2 23 11/12/2023 CL 103 11/12/2023 BUN 23 (H) 11/12/2023 CREATININE 1.21 11/12/2023 Lab Results Component Value Date HSTROPI 120 (HH) 11/12/2023 No results found for: TSH No results found for: ALT, AST, GGT, ALKPHOS, BILITOT No results found for: INR, PTT * Milan Castro MD - 11/11/2023 8:12 AM EDT ORTHOPEDIC PROGRESS NOTE Principal Problem: Acute congestive heart failure, unspecified heart failure type (CMS/HCC) LOS: 2 days Subjective No acute events overnight. Patient feeling well this morning. Pain well controlled. Son also at bedside. All questions answered. Ambulated 60 feet with OT yesterday. OT recommending discharge home. Pending PT evaluation. Hemoglobin 11.4 this morning. Vital signs in last 24 hours: Temp: 36.8 C (98.2 F) (11/10 413) Heart Rate: 62 (11/10 413) Resp: 12 (11/09 2356) BP: 134/82 (11/10 413) Recent Results: Lab Results Component Value Date WBC 6.7 11/11/2023 HGB 11.4 (L) 11/11/2023 HCT 36.0 (L) 11/11/2023 MCV 93.3 11/11/2023 PLT 126 (L) 11/11/2023 Lab Results Component Value Date GLUCOSE 106 (H) 11/10/2023 CALCIUM 8.2 (L) 11/10/2023 NA 140 11/10/2023 K 3.8 11/10/2023 CO2 25 11/10/2023 CL 108 (H) 11/10/2023 BUN 21 (H) 11/10/2023 CREATININE 0.96 11/10/2023 Physical Exam: Gen: NAD, pleasant LLE: Dressing about the left foot clean/dry/intact without strikethrough. Able to flex and extend lesser toes. Sensation intact to light touch about the exposed toes but diminished per his reported baseline. Toes warm well-perfused. Assessment/Plan Yoni Villalpando is a 78 y.o. year old male with left great toe osteomyelitis POD#1 after left great toepartial amputation with Dr. Castro on 11/10/2023. Weightbearing status: Heel only weightbearing LLE DVT prophylaxis: recommend aspirin 81 mg twice daily Antibiotics: per primary Follow-up intra-op cultures: NGTD PT/OT Pain control as ordered Dispo: Pending PT evaluation and antibiotic finalization. Orthopedically stable for discharge when patient is mobilizing with PT, pain is under control with PO medications, antibiotics finalized, andmedically appropriate. Hopefully discharge home tomorrow. Follow-up with Dr. Castro in 2 weeks Sammie Daly MD PGY-4 Orthopedic Surgery Attending addendum: I discussed the patient with the resident. I evaluated the patient performed a separate history andphysical examination. I have reviewed the note above and I agree including with the impression and plan. Please feel free to call me to coordinate care if necessary. Milan Castro M.D. [phone] * Tramaine Perez, - 11/11/2023 7:52 AM EDT Images from the original note were not included. Progress Note Chief Complaint/Visit Reason: Left lower extremity and left great toe swelling Impression: 78-year-old obese male who presented to [facility] [place]/09/[facility]23 with complaints of left lower lower extremity swelling as well as left great toe edema with progressive dyspnea and worsening wound. Chest x-ray showed parabronchial cuffing seen in bronchitis as well as increased interstitial lung markings.X-ray of his left foot showed lucency and commuted fracture of the great toe thought to be secondary to osteomyelitis versus posttraumatic fracture. Orthopedic surgery was consulted admitted for cellulitis with possible osteomyelitis of left great toe concern for PAD and AECOPD. GEORGETTE 11/08 showed normal perfusion bilaterally. MRI left lower extremity showed soft tissue swelling and subcutaneous edema of the great toe, presumably cellulitis but no evidence of abscess or fluid collection no evidence of tendon tear, tenosynovitis. TTE 11/09 showed an EF of 35-40% with an inferior and inferior lateral wall being mildly hypokineticwith an mildly elevated LV. Patient has a primary transition mgr rn in [place] that he follows with. Cardiology consulted for pre- operative assessment. Diagnosis: Commuted fracture of the left great toe with findings concerning for osteomyelitis. Cellulitis of the left great toe, see above AECOPD, suspected on admission Acute on chronic combined systolic and diastolic heart failure, TTE 11/10/2023 with EF 35-40%, baseline unknown Ischemic cardiomyopathy given history of prior IN and PCI/CAD CAD with history of PCI over 10 years prior, follows with a primary transition mgr rn in [place] Peripheral artery disease Hypertension Dyslipidemia Morbidly obese, BMI greater than 30 Anemia, normocytic, NOS Thrombocytopenia, mild, NOS Elevated troponin thought to be related to demand ischemia, workup in progress GERD History of gout Remote history of DVT, per patient Iron deviancy anemia in patient with heart failure Plan: f/u iron and b12 studies >> ferric gluconate 3 day course 11/10 Orthopedic surgery following, s/p left great toe amputation 11/09 >> f/u OR cx. Bcx from admission NTD Cardiology following initially PAT, now HF. GDMT recs -Aspirin 81 mg daily -Metoprolol succinate 25 mg daily -Entresto 24/26 mg twice daily -Aldactone 25 mg daily -Farxiga 10 mg daily -Furosemide 40 mg daily as needed. d/c prednisone 40 mg daily, presentation seems more consistent with HF than AECOPD, also better forwound healing DVT prophylaxis: mechanical, defer to sx Blood Product Consent: NOOA Code Status: Full code Disposition: EDOD 11/12/23 Tramaine Perez DO [facility] Hospitalist Subjective: Spoke with patient's , daughter and patient who are all present at bedside. Had a fairly good understanding of his clinical course. Reviewed cardiology's note they are adjusting GDMT to include aspirin, start Toprol-XL, Entresto and Aldactone as well as Farxiga. There is still requesting records from his primary transition mgr rn in [place]. In the meantime patient will follow-up with orthopedic and heart failure team here in [place] when he leaves before eventually going back to [place] perhaps within a month. -- Orders updated. Review of Systems Constitutional: Negative. Negative for chills and fever. Respiratory: Positive for shortness of breath. Negative for cough and wheezing. Cardiovascular: Negative. Negative for chest pain and palpitations. Gastrointestinal: Negative. Negative for abdominal distention, abdominal pain, constipation, diarrhea, nausea and vomiting. Neurological: Negative. Negative for dizziness and light-headedness. Psychiatric/Behavioral: Negative. Negative for agitation, behavioral problems and hallucinations. Vitals and Physical exam: Patient Vitals for the past 24 hrs: BP Temp Temp src Pulse Resp SpO2 11/11/23 0414 134/82 36.8 C (98.2 F) -- 62 -- 90 % 11/10/23 2357 134/73 36.4 C (97.5 F) Oral 72 12 90 % 11/10/23 1911 (!) 143/79 36.6 C (97.9 F) -- 70 -- 90 % 11/10/23 1607 131/80 36.8 C (98.2 F) Oral 65 -- 91 % 11/10/23 1415 (!) 151/87 -- -- 73 15 91 % 11/10/23 1405 (!) 147/89 -- -- 79 18 91 % 11/10/23 1345 (!) 155/94 -- -- 82 21 94 % 11/10/23 1335 (!) 144/78 36.5 C (97.7 F) Temporal 90 22 (!) 89 % 11/10/23 0940 (!) 146/80 36.2 C (97.1 F) Temporal 75 -- 90 % Body mass index is 31.57 kg/m . Intake/Output Summary (Last 24 hours) at 11/11/2023 0752 Last data filed at 11/10/2023 1324 Gross per 24 hour Intake 500 ml Output 10 ml Net 490 ml Physical Exam Vitals reviewed. Constitutional: Appearance: Normal appearance. He is not ill-appearing. Cardiovascular: Rate and Rhythm: Normal rate and regular rhythm. Heart sounds: Normal heart sounds. No murmur heard. No friction rub. No gallop. Pulmonary: Breath sounds: Normal breath sounds. No stridor. No wheezing, rhonchi or rales. Abdominal: General: Bowel sounds are normal. There is no distension. Palpations: Abdomen is soft. There is no mass. Tenderness: There is no abdominal tenderness. There is no guarding or rebound. Musculoskeletal: General: Normal range of motion. Skin: General: Skin is warm and dry. Neurological: General: No focal deficit present. Mental Status: He is alert and oriented to person, place, and time. Psychiatric: Mood and Affect: Mood normal. Behavior: Behavior normal. Recent Lab Results: Results from last 7 days Lab Units 11/10/23 0451 11/09/23 0547 11/08/23 2113 SODIUM mmol/L 140 142 140 POTASSIUM mmol/L 3.8 3.9 4.2 CHLORIDE mmol/L 108* 107 110* CO2 mmol/L 25 25 23 BUN mg/dL 21* 16 16 CREATININE mg/dL 0.96 1.22 1.19 Results from last 7 days Lab Units 11/11/23 0416 11/10/23 0451 11/08/23 2113 WBC AUTO K/mcL 6.7 5.0 4.0* HEMOGLOBIN g/dL 11.4* 11.9* 12.9* HEMATOCRIT % 36.0* 36.6* 39.4 PLATELETS K/mcL 126* 131* 139* MCV FL 93.3 92.0 92.9 Results from last 7 days Lab Units 11/11/23 0416 11/10/23 1757 11/10/23 0451 HIGH SENSITIVITY TROPONIN I ng/L 32* 36* 36* 39* Recent Imaging Findings: Transthoracic echocardiogram (TTE) complete with PRN contrast, bubble, strain, and 3D order panel Left Ventricle: Left ventricle cavity is mildly dilated. There is mild concentric hypertrophy. Systolic function is moderately decreased with an ejection fraction of 35-40%. LV global longitudal strain is reduced. Global longitudinal strain is -14.8%. The inferior wall and the inferolateral wall appear moderately hypokinetic. Left ventricle cavity is mildly dilated. Left ventricular systolic function is moderately decreased with an ejection fraction of 35-40%. Right Ventricle: Right ventricle cavity appears normal. Systolic function is normal. Left Atrium: Left atrium cavity size is normal. Aortic Valve: Number of aortic valve cusps cannot be determined. The leaflets are not thickened and exhibit normal excursion. There is no regurgitation or stenosis. Allergies: No Known Allergies * ZAIN Monterroso - 11/11/2023 7:37 AM EDT Images from the original note were not included. CARDIOLOGY PROGRESS NOTE Impression: 78-year-old gentleman presented with osteomyelitis of the left great toe. He had evidence of volumeoverload on presentation prompting cardiology consultation -Congestive heart failure; acute on chronic systolic dysfunction. He has a history of ischemic cardiomyopathy based on his recollection but cannot provide any details. Echo this admission demonstrates left ventricular ejection fraction of 35 to 40% with hypokinesis of the inferior and inferolateralwalls. No prior studies available for comparison. -Ischemic cardiomyopathy -Atherosclerotic coronary artery disease with remote IN and PCI stenting to an unknown vessel over 10 years ago in [place]. He does have a stent card in his wallet but does not have that here with him at the hospital. ECG suggestive of old inferolateral IN which corresponds to wall motion abnormality on echo. He denies any anginal symptoms. He had a very mild, adynamic troponin elevation not feltto represent ACS, rather demand ischemia -Arterial disease with previous lower extremity revascularization. Bilateral lower extremity ABIs this admission demonstrated normal perfusion to the level of the ankle at rest with abnormal toe brachial index bilateral lower extremities -Benign essential hypertension -Hyperlipidemia -COPD with prior tobacco use, quitting in 2009 -Left big toe osteomyelitis; status post left great toe amputation through the proximal phalange 11/02/2023. Recommendations: -I reviewed his echo findings with he and his family. He has not been on appropriate guideline directed medical therapy in the outpatient setting. Apparently he lost his primary transition mgr rn after they left the system in [place] and has seen several different providers. We discussed the importance of guideline directed medical therapy. -Continue aspirin 81 mg daily -For reasons unclear, he is not on statin therapy. Recommend atorvastatin 40 mg daily -His outpatient med list was reviewed. He had been on Diovan and carvedilol at some point in the past, both discontinued in favor of amlodipine. Cannot determine the rationale. We will stop amlodipine. -He is on Aldactone 25 mg daily which can be continued at discharge -Will initiate metoprolol succinate 25 mg daily and Entresto 24/26 mg twice daily -Recommend adding Farxiga 10 mg daily as well. He will likely stay in the [place] area for the next few weeks while he recovers and follows up with surgery prior to returning to [place]. He will reestablish with cardiology there. We will arrangeclose outpatient follow-up in our office in 1 to 2 weeks to adjust/titrate meds as necessary and plan to repeat metabolic panel. Recommended discharge cardiac meds: -Aspirin 81 mg daily -Metoprolol succinate 25 mg daily -Entresto 24/26 mg twice daily -Aldactone 25 mg daily -Farxiga 10 mg daily -Furosemide 40 mg daily as needed. No valsartan or amlodipine at discharge ZAIN Ruiz 11/11/23 7:37 AM EDT [facility] Thank you for this consultation. If you have any questions, please feel free to call. First Call Mon-Fri [phone]: [facility] [phone] [facility] [phone] [facility] [phone] After hours/Weekends: [phone] For listed Attendings On-Call at each site click here Primary Armed Security Officer: Rosetta Subjective / Interval History: Patient resting comfortably. Several family members at bedside. He underwent left great toe partialamputation on 11/02/2023 for left great toe osteomyelitis. He denies any significant postoperative pain. Echo findings noted below. He currently denies any significant shortness of breath and has no significant lower extremity edema. He denies any chest pain. ROS: CARDIAC: Negative for chest pain, palpitations, dyspnea on exertion, paroxysmal nocturnal dyspnea, peripheral edema. GENERAL: Negative for any nausea, vomiting, fevers, chills, or weight loss. PULMONARY: Negative for any shortness of breath, wheezing, cough or hemoptysis. Cardiographics: Telemetry last 24 hours personally reviewed which shows: Normal sinus rhythm. Isolated PVCs. TRANSTHORACIC ECHOCARDIOGRAM (TTE) COMPLETE (CONTRAST/BUBBLE/3D PRN) 11/10/2023 Interpretation Summary Left Ventricle: Left ventricle cavity is mildly dilated. There is mild concentric hypertrophy. Systolic function is moderately decreased with an ejection fraction of 35-40%. LV global longitudal strain is reduced. Global longitudinal strain is -14.8%. The inferior wall and the inferolateral wall robby ear moderately hypokinetic. Left ventricle cavity is mildly dilated. Left ventricular systolic function is moderately decreasedwith an ejection fraction of 35-40%. Right Ventricle: Right ventricle cavity appears normal. Systolic function is normal. Left Atrium: Left atrium cavity size is normal. Aortic Valve: Number of aortic valve cusps cannot be determined. The leaflets are not thickened andexhibit normal excursion. There is no regurgitation or stenosis. Signed by: Bob Marte MD on 11/10/2023 9:08 AM Objective: Patient Vitals for the past 24 hrs: BP Temp Temp src Pulse Resp SpO2 Height Weight 11/11/23 0414 134/82 36.8 C (98.2 F) -- 62 -- 90 % -- -- 11/10/23 2357 134/73 36.4 C (97.5 F) Oral 72 12 90 % -- -- 11/10/23 1911 (!) 143/79 36.6 C (97.9 F) -- 70 -- 90 % -- -- 11/10/23 1607 131/80 36.8 C (98.2 F) Oral 65 -- 91 % -- -- 11/10/23 1415 (!) 151/87 -- -- 73 15 91 % -- -- 11/10/23 1405 (!) 147/89 -- -- 79 18 91 % -- -- 11/10/23 1345 (!) 155/94 -- -- 82 21 94 % -- -- 11/10/23 1335 (!) 144/78 36.5 C (97.7 F) Temporal 90 22 (!) 89 % -- -- 11/10/23 0940 (!) 146/80 36.2 C (97.1 F) Temporal 75 -- 90 % -- -- 11/10/23 0745 (!) 144/80 -- -- -- -- -- 1.778 m (70) 99.8 kg (220 lb) Intake/Output Summary (Last 24 hours) at 11/11/2023 0737 Last data filed at 11/10/2023 1324 Gross per 24 hour Intake 500 ml Output 10 ml Net 490 ml Wt Readings from Last 3 Encounters: 11/10/23 99.8 kg (220 lb) 11/09/23 99.8 kg (220 lb) 01/07/23 96.1 kg (211 lb 12.8 oz) Body mass index is 31.57 kg/m . Physical Examination: General appearance/constitutional: The patient is in no distress. EYES: No xanthelasma. Normal conjunctiva. Ears, Nose, Mouth and Throat: Normocephalic. Limited dentition examination. Neck: No neck tenderness, masses or nodules. Respiratory/chest: Clear to auscultation anteriorly/bilaterally without wheezes or crackles. Examination of posterior lung perez limited by body positioning. Heart: Regular rate and rhythm. S1, S2 normal. No obvious S3 or murmurs. There is no jugular venousdistension noted. Abdomen/gastrointestinal: Soft, non-tender. Bowel sounds normal. Extremities: There is no significant peripheral lower extremity edema. Left foot is bandaged. Musculoskeletal: Normal range of motion in the arms. Back: Not assessed due to patient positioning in bed. Pulses: Bilateral radial pulses are 2+ and symmetric. Skin: Skin color, texture normal. No rashes or lesions noted by limited skin examination Neurologic/psychiatric: The patient is oriented to time, place and person. Mood, memory, affect andjudgment are appropriate for this presentation Labs: Lab Results Component Value Date WBC 6.7 11/11/2023 HGB 11.4 (L) 11/11/2023 HCT 36.0 (L) 11/11/2023 MCV 93.3 11/11/2023 PLT 126 (L) 11/11/2023 Lab Results Component Value Date GLUCOSE 106 (H) 11/10/2023 CALCIUM 8.2 (L) 11/10/2023 NA 140 11/10/2023 K 3.8 11/10/2023 CO2 25 11/10/2023 CL 108 (H) 11/10/2023 BUN 21 (H) 11/10/2023 CREATININE 0.96 11/10/2023 Lab Results Component Value Date HSTROPI 32 (H) 11/11/2023 No results found for: TSH No results found for: ALT, AST, GGT, ALKPHOS, BILITOT Lab Results Component Value Date INR 0.9 11/09/2023 * Octavio Landers RN - 11/10/2023 2:54 PM EDT Case Management Initial Assessment Nursing Orientation Assessment: Neuro (WDL): Within Defined Limits Patient off floor, CM obtained from family at bedside. Contact (Name, Phone #, Relationship) for DC Planning: Hailey Villalpando [phone] Patient Next of Kin / Surrogate Decision Maker is Spouse Hailey Villalpando Advance Directive: Patient has advance directive, copy not in chart Advance Directive not in Chart: Copy requested from patient/family Information Provided on Healthcare Directives: No Patient Requests Assistance: No Insurance provider confirmed from chart: Yes and was correct Confirmed PCP: Alisia Rees MD Yes and was correct Confirmed Pharmacy :Yes and was correct [id number] - [place], [place] - [address] AT [address]NER OF [address] [address] Readmission Assessment Completed?: No, does not require readmission assessment. SIOH Flowsheet Completed?: Yes, no needs at this time Medication Affordability : No concerns related to payment for meds Living Situation at Admission Address confirmed from chart: Yes and was correct Living Arrangements: Spouse/significant other Type of Residence: Private residence Steps to enter home: No steps Steps within home: no steps Patient's baseline at time of admission: Home Independent (Partner or Family support within home) Support Systems: Spouse/significant other Assistive Devices: Other (Comment), Cane (cpap ([employer]erocare), has access to spouses' walker and wheelchair depending on what she is using.) (DME provider is: N/A) Current Homecare Services: None Community Carburetor Expert: None Outside Services: outpatient erp specialist three times a week (in [place]) Past Services: Not addressed on initial assessment Has the patient served in the [employer] ?: Yes, per family he goes to local [place] for things such as hearing aides but does not receive many services through them. Discharge Needs Initial Transition Plan: Home Back up Transition plan: Home Health Care ABDIRASHID Parker Note: CRSI: 11/12/2023 Primary D/C Plan: Home vs Home with [facility] Next Steps: PT/OT recs, ID, ortho recs, cultures Decision maker: Patient Pre-cert Needed: No Transportation at discharge: Family Needed for d/c recommendations: PT and OT Case Management Narrative CM reviewed case. Patient with left great toe osteomyelitis. Patient currently off floor in OR, CM met with family at bedside, discussed role. Information obtained from son Garrett. Patient lives with spouse Hailey in [place], had been visiting son/his family in [place]. He was originally planning to return to [place] on or although family says when and how he will return to [place] is uncertain at this point. He had been driving, was originally planning to drive back to [place]. He is independent with ADLs. He follows up with a erp specialist in [place]. [facility] but not [facility]. He has a cane but does not typically use DME. Family indicated that spouse has a wheelchair and walker that patient could use if she is not using them herself. PT/OT consulted. CM will follow for recommendations and discharge planning needs. Time Spent (minutes): 20 minutes * Nelly Mayberry NP - 11/10/2023 8:04 AM EDT Images from the original note were not included. Progress Note Chief Complaint/Visit Reason: Left lower extremity and left great toe swelling Impression: Patient is a 78-year-old male with past medical history as noted below who presented to [facility] 11/09/2023 with reports of left lower extremity swelling as well as left great toe edema with a progressively worsening wound and shortness of breath. Upon arrival to ED, vitals were significant for mild hypertension. Labs significant for elevated lactate 2.2. BNP 316. Troponin 44. CRP 2.3. WBC 4.0. Platelets 139. ESR 39. CXR showed peribronchial cuffing which can be seen in bronchitis as well as increased interstitial markings at the lung bases.Left foot x-ray showed lucency comminuted fracture of the great toe which may be secondary to osteomyelitis versus posttraumatic fracture. GEORGETTE completed on 11/09/2023 suggest normal arterial perfusionbilaterally. MRI soft tissue swelling and subcutaneous edema of the great toe, presumably cellulitis. No fluid collection or abscess. No evidence of tendon tear, tenosynovitis. He was given IV vancomycin, Zosyn, Decadron, as well as IV Lasix and admitted to [facility]. Blood cultures with no growth for 24hours. Echocardiogram indicates mild hypertrophic with moderately decreased systolic function with an EF of 35 to 40%. Inferior wall and inferiolateral wall moderately hypokinetic. LV mildly dilated. Patient currently lives in [place] and receives his cardiology care there, unfortunately I cannot see his last echocardiogram but the patient and his family indicates he has had an IN in the past and knows he has a reduced EF. They are unaware exactly what that percentages. He has had symptoms of shortness of breath but indicates this is chronic, he has not had any chest pain. Diagnoses: Comminuted fracture of left great toe Left toe wound Cellulitis of left lower extremity/great toe Peripheral arterial disease Suspected COPD exacerbation, not currently on oxygen Chronic combined systolic and diastolic heart failure, TTE on 11/10/2023 indicated an EF of 35 to 40% Elevated troponin, likely secondary to demand ischemia Thrombocytopenia, mild. Acute on chronic Anemia, normocytic, chronic Coronary artery disease GERD Hypertension Gout Remote history of DVT Plan: Ortho consulted; plan for possible surgical intervention, time tbd Echo reviewed with patient and family, will defer further interventions to cardiology if deemed necessary Continue p.o. steroids IV fluids; repeat lactate trending down Follow-up blood cultures-NGTD Continue aggressive pulmonary hygiene with scheduled bronchodilators; O2 as needed to maintain [id number] than 90% Moreno: na CVC: na DVT prophylaxis: mechanical Blood Product Consent: na Code Status: Full code Disposition: EDOD 11/12/23 [facility] 7 am to 5 pm [facility] 5 Haiku/secure chat or Page at [phone] with full number After 5 pm pls call the [facility] ER pager Subjective: Patient is sitting up in bed, several family members are present at bedside. He indicates his pain is tolerable, he is eager to get surgery over with. He does have symptoms of shortness of breath but indicates this is chronic. Did review echocardiogram with patient and family. He indicates he follows with cardiology in [place] and is due for an appointment. Review of Systems Constitutional: Negative. Negative for chills and fever. Respiratory: Positive for shortness of breath. Negative for cough and wheezing. Cardiovascular: Negative. Negative for chest pain and palpitations. Gastrointestinal: Negative. Negative for abdominal distention, abdominal pain, constipation, diarrhea, nausea and vomiting. Neurological: Negative. Negative for dizziness and light-headedness. Psychiatric/Behavioral: Negative. Negative for agitation, behavioral problems and hallucinations. Vitals and Physical exam: Patient Vitals for the past 24 hrs: BP Temp Temp src Pulse Resp SpO2 Height Weight 11/10/23 0745 (!) 144/80 -- -- -- -- -- 1.778 m (70) 99.8 kg (220 lb) 11/10/23 0448 (!) 144/80 36.5 C (97.7 F) Oral 63 16 90 % -- -- 11/09/23 1940 -- -- -- -- -- 93 % -- -- 11/09/23 1904 (!) 147/74 36.7 C (98.1 F) -- 65 -- 92 % -- -- 11/09/23 1812 129/88 -- -- 92 20 92 % -- -- 11/09/23 1500 (!) 167/66 -- -- 97 17 94 % -- -- 11/09/23 1430 -- -- -- 93 20 -- -- -- 11/09/23 1400 -- -- -- 94 17 94 % -- -- 11/09/23 1330 -- -- -- 92 21 93 % -- -- 11/09/23 1300 -- -- -- 92 17 93 % -- -- 11/09/23 1230 -- -- -- 92 19 95 % -- -- 11/09/23 1200 -- -- -- 68 18 95 % -- -- 11/09/23 1130 -- -- -- 79 19 (!) 89 % -- -- 11/09/23 1100 -- -- -- 79 20 93 % -- -- 11/09/23 1040 (!) 145/82 -- -- 81 17 92 % -- -- 11/09/23 1030 -- -- -- 87 (!) 31 91 % -- -- 11/09/23 1000 -- -- -- 88 17 95 % -- -- 11/09/23 0939 (!) 174/83 -- -- 86 20 96 % -- -- Body mass index is 31.57 kg/m . No intake or output data in the 24 hours ending 11/10/23 0804 Physical Exam Vitals reviewed. Constitutional: Appearance: Normal appearance. He is not ill-appearing. Cardiovascular: Rate and Rhythm: Normal rate and regular rhythm. Heart sounds: Normal heart sounds. No murmur heard. No friction rub. No gallop. Pulmonary: Breath sounds: Normal breath sounds. No stridor. No wheezing, rhonchi or rales. Abdominal: General: Bowel sounds are normal. There is no distension. Palpations: Abdomen is soft. There is no mass. Tenderness: There is no abdominal tenderness. There is no guarding or rebound. Musculoskeletal: General: Normal range of motion. Skin: General: Skin is warm and dry. Neurological: General: No focal deficit present. Mental Status: He is alert and oriented to person, place, and time. Psychiatric: Mood and Affect: Mood normal. Behavior: Behavior normal. Recent Lab Results: Results from last 7 days Lab Units 11/10/23 0451 11/09/23 0547 11/08/23 2113 SODIUM mmol/L 140 142 140 POTASSIUM mmol/L 3.8 3.9 4.2 CHLORIDE mmol/L 108* 107 110* CO2 mmol/L 25 25 23 BUN mg/dL 21* 16 16 CREATININE mg/dL 0.96 1.22 1.19 Results from last 7 days Lab Units 11/10/23 0451 11/08/23 2113 WBC AUTO K/mcL 5.0 4.0* HEMOGLOBIN g/dL 11.9* 12.9* HEMATOCRIT % 36.6* 39.4 PLATELETS K/mcL 131* 139* MCV FL 92.0 92.9 Results from last 7 days Lab Units 11/10/23 0451 11/09/23 1037 11/09/23 0547 HIGH SENSITIVITY TROPONIN I ng/L 39* 35* 45* Recent Imaging Findings: Vascular US ankle brachial index (GEORGETTE) Right: Ankle brachial index suggestive of normal arterial perfusion to the level of the ankle at rest. The PVR waveforms at the ankle and metatarsal level are normal. Abnormal toe brachial index of the right lower extremity. Left: Ankle brachial index suggestive of normal arterial perfusion to the level of the ankle at rest. The PVR waveforms at the ankle and metatarsal level are normal. Abnormal toe brachial index of the left lower extremity. MR Foot wo and w Contrast Left Narrative: EXAMINATION TYPE: MR FOOT WO AND W CONTRAST LEFT DATE OF EXAM : 11/09/2023 8:00 AM HISTORY: Possible first toe osteo COMPARISON: Radiographic exam 11/08/2023 Impression: FINDINGS/IMPRESSION: Motion degradation of short axis sequences. Ulcer at the medial aspect of the great toe. Marrow signal abnormality of the underlying 1st phalanx, characterized by T2 hyperintense signal, T1 hypointense enhancement, compatible with acute osteomyelitis. T2 hyperintense signal of the head and neck of the adjacent 1st proximal phalanx with preserved T1 signal, consistent with reactive osteitis. Small 1st interphalangeal joint effusion, nonspecific, although septic arthritis is not excluded. Soft tissue swelling and subcutaneous edema of the great toe, presumably cellulitis. No discrete peripheral enhancing fluid collection/abscess is identified. No partial nor full-thickness tendon tear is identified. No evidence of tenosynovitis. Diffuse edema and partial fatty atrophy throughout the plantar musculature, suggesting subacute denervation changes (i.e. diabetes mellitus). -------- FINAL REPORT -------- Dictated By: Roberto Torres Dictated Date: 11/09/2023 09:15 Assigned Physician: Roberto Torres Reviewed and Electronically Signed By: Roberto Torres Signed Date: 11/09/2023 09:19 Workstation ID: [id number] Transcribed By: Self Edit Transcribed Date: 11/09/2023 09:15 XR Chest 1 View Narrative: EXAMINATION TYPE: XR FOOT 3+ VIEWS LEFT, XR CHEST 1 VIEW DATE OF EXAM : 11/08/2023 10:54 PM HISTORY: fracture, COMPARISON: NONE FINDINGS: AP upright chest: (Place. There are increased interstitial markings at the lung bases. The upper lungs are clear. No pneumothorax is significant pleural effusion. Moderate cardiomegaly. Calcificationof thoracic aorta. Peribronchial cuffing. Impression: 1. Peribronchial cuffing which can be seen in bronchitis or asthma. 2. Increased interstitial markings at the lung bases. Recommend correlation with prior outside radiographs to determine chronicity. 3. Moderate cardiomegaly. Left foot: Diffuse soft tissue swelling about the distal calf, ankle and foot. There is soft tissueswelling of the great toe as well. There is lucency and comminuted fracture of the distal phalanx of the great toe. There is mild osteoarthritis. IMPRESSION: 1. Lucency comminuted fracture of the great toe. This may be due to posttraumatic fracture or due to osteomyelitis. Recommend clinical correlation. 2. Diffuse soft tissue swelling of the distal calf, ankle and foot. 3. Mild osteoarthritis. -------- FINAL REPORT -------- Dictated By: Vickey Joshi Dictated Date: 11/09/2023 00:06 Assigned Physician: Vickey Joshi Reviewed and Electronically Signed By: Vickey Joshi Signed Date: 11/09/2023 00:09 Workstation ID: [id number] Transcribed By: Self Edit Transcribed Date: 11/09/2023 00:06 XR Foot 3+ Views Left Narrative: EXAMINATION TYPE: XR FOOT 3+ VIEWS LEFT, XR CHEST 1 VIEW DATE OF EXAM : 11/08/2023 10:54 PM HISTORY: fracture, COMPARISON: NONE FINDINGS: AP upright chest: (Place. There are increased interstitial markings at the lung bases. The upper lungs are clear. No pneumothorax is significant pleural effusion. Moderate cardiomegaly. Calcificationof thoracic aorta. Peribronchial cuffing. Impression: 1. Peribronchial cuffing which can be seen in bronchitis or asthma. 2. Increased interstitial markings at the lung bases. Recommend correlation with prior outside radiographs to determine chronicity. 3. Moderate cardiomegaly. Left foot: Diffuse soft tissue swelling about the distal calf, ankle and foot. There is soft tissueswelling of the great toe as well. There is lucency and comminuted fracture of the distal phalanx of the great toe. There is mild osteoarthritis. IMPRESSION: 1. Lucency comminuted fracture of the great toe. This may be due to posttraumatic fracture or due to osteomyelitis. Recommend clinical correlation. 2. Diffuse soft tissue swelling of the distal calf, ankle and foot. 3. Mild osteoarthritis. -------- FINAL REPORT -------- Dictated By: Vickey Joshi Dictated Date: 11/09/2023 00:06 Assigned Physician: Vickey Joshi Reviewed and Electronically Signed By: Vickey Joshi Signed Date: 11/09/2023 00:09 Workstation ID: [id number] Transcribed By: Self Edit Transcribed Date: 11/09/2023 00:06 Allergies: No Known Allergies * Kalil Kearney RN - 11/09/2023 8:07 PM EDT Goals: Problem: Sensory: Acute Pain Goal: Ability to develop a pain control plan will improve Outcome: Progressing Problem: Cognitive: Acute Pain Goal: Expressions of feelings of enhanced comfort will increase Outcome: Progressing Problem: Patient Specific Problem: Acute Pain Goal: Patient Specific Outcome Outcome: Progressing Problem: Falls: Fall Risk (Adult IP ) Goal: (Goal) Patient will experience maximum safety and reduce risk for falls. Outcome: Progressing Goal: Patient will not fall or injure themselves during hospitalization. Outcome: Progressing * Pham Massey RN - 11/09/2023 7:12 PM EDT Goals: Identify possible barriers to meeting goals/advancing plan of care: Problem: Sensory: Acute Pain Goal: Pain level will improve or be tolerable Outcome: Progressing Goal: Ability to develop a pain control plan will improve Outcome: Progressing Problem: Cognitive: Acute Pain Goal: Expressions of feelings of enhanced comfort will increase Outcome: Progressing Problem: Patient Specific Problem: Acute Pain Goal: Patient Specific Outcome Outcome: Progressing Problem: Falls: Fall Risk (Adult IP ) Goal: (Goal) Patient will experience maximum safety and reduce risk for falls. Outcome: Progressing Goal: Patient will not fall or injure themselves during hospitalization. Outcome: Progressing Problem: Physical Regulation:Infection Management Goal: Signs and symptoms of infection will decrease Outcome: Progressing Goal: Complications related to the disease process, condition or treatment will be avoided or minimized Outcome: Progressing Goal: Diagnostic test results will improve Outcome: Progressing Problem: Cognitive:Infection Management Goal: Knowledge of disease or condition will improve Outcome: Progressing Problem: Patient Specific Problem:Infection Management Goal: Patient Specific Outcome Outcome: Progressing Stability of the patient: Moderately Stable - Low risk of patient condition declining or worsening End of Shift Summary: * Wilfrid Malcolm RN - 11/09/2023 7:05 PM EDT Patient assessed. Patient comfortable in bed after arriving to the floor. Family in the room. Virtual Nurse doing admission questions. No c/o pain or discomfort. Meal arrived in patients room for patient to consume. Informed patient of being NPO at midnight. Will inform oncoming nurse of patients current status. * Meghan Barnard RN - 11/09/2023 5:27 PM EDT ED Summary Chief Complaint Patient presents with Toe Injury Left foot pain, patient skinned his left foot great toe. Was given cephalexin for injury. Patient with bilateral leg swelling and discoloration. Patient with CHF. Vital Signs: Visit Vitals BP (!) 167/66 (BP Location: Right arm, Patient Position: Lying) Pulse 97 Temp 36.7 C (98.1 F) (Oral) Resp 17 Ht 1.778 m (70) Wt 99.8 kg (220 lb) SpO2 94% BMI 31.57 kg/m Smoking Status Former BSA 2.17 m LDAs: Peripheral IV 11/08/23 Left Antecubital (Active) Site Assessment Clean;Dry;Intact 11/08/232112 Line Status Blood return noted;Saline locked;Lab draw;Flushed 11/08/232112 Peripheral IV 11/09/23 Anterior;Distal;Right;Upper Arm (Active) Site Assessment Clean;Dry;Intact 11/09/23 0552 Dressing Type Transparent 11/09/23 05 Line Status Blood return noted;Lab draw;Saline locked 11/09/23 0552 Phlebitis Scale 0 11/09/23 0552 Dressing Status Clean;Dry;Intact 11/09/23 0552 Flores Aubrey Score: Medications Administered in ED: Medications sodium chloride 0.9 % flush 10 mL (10 mL intravenous Given 11/09/23 0943) And sodium chloride 0.9 % flush 10 mL (has no administration in time range) acetaminophen (TYLENOL) tablet 650 mg (has no administration in time range) ondansetron ODT (ZOFRAN-ODT) disintegrating tablet 4 mg (has no administration in time range) Or ondansetron (PF) (ZOFRAN) injection 4 mg (has no administration in time range) prochlorperazine (COMPAZINE) tablet 10 mg (has no administration in time range) Or prochlorperazine (COMPAZINE) injection 10 mg (has no administration in time range) Or prochlorperazine (COMPAZINE) suppository 25 mg (has no administration in time range) senna-docusate (PERICOLACE) 8.6-50 mg per tablet 1 tablet (has no administration in time range) perflutren lipid microsphere (DEFINITY) 1.3 mL in sodium chloride 0.9% 8.7 mL injection (has no administration in time range) ipratropium-albuteroL (DUONEB) 0.5-2.5 mg/3 mL nebulizer solution 3 mL (3 mL nebulization Given 11/09/23 1604) predniSONE (DELTASONE) tablet 40 mg (has no administration in time range) albuterol 2.5 mg /3 mL (0.083 %) nebulizer solution 2.5 mg (has no administration in time range) allopurinoL (ZYLOPRIM) tablet 100 mg (100 mg oral Given 11/09/23 0941) amLODIPine (NORVASC) tablet 5 mg (5 mg oral Given 11/09/23 0941) aspirin EC tablet 81 mg (81 mg oral Given 11/09/23 0940) finasteride (PROSCAR) tablet 5 mg (5 mg oral Given 11/09/23 0940) oxyCODONE (ROXICODONE) immediate release tablet 5 mg (has no administration in time range) pantoprazole (PROTONIX) EC tablet 40 mg (40 mg oral Given 11/09/23 0940) rOPINIRole (REQUIP) tablet 2 mg (2 mg oral Given 11/09/23 0941) tamsulosin (FLOMAX) 24 hr capsule 0.4 mg (0.4 mg oral Given 11/09/23 0941) sodium chloride 0.9 % infusion (75 mL/hr intravenous New Bag 11/09/23 1413) piperacillin-tazobactam (ZOSYN) 4.5 g in sodium chloride 0.9 % 100 mL IVPB - MBP (0 g intravenous Stopped 11/09/23 0300) dexAMETHasone (DECADRON) injection 6 mg (6 mg intravenous Given 11/09/23 0057) ipratropium-albuteroL (DUONEB) 0.5-2.5 mg/3 mL nebulizer solution 3 mL (3 mL nebulization Given 11/09/23 0115) vancomycin (VANCOCIN) 2,000 mg in sodium chloride 0.9 % 500 mL IVPB (0 mg intravenous Stopped 11/09/23 0503) furosemide (LASIX) injection 40 mg (40 mg intravenous Given 11/09/23 0146) gadoterate meglumine (CLARISCAN, DOTAREM) injection 18 mL (18 mL intravenous Given 11/09/23 0900) Infusions: sodium chloride, 75 mL/hr, Last Rate: 75 mL/hr (11/09/23 1413) Meghan aBrnard RN 11/09/23 1727 * Alba Martin NP - 11/09/2023 1:14 PM EDT Images from the original note were not included. Progress Note Chief Complaint/Visit Reason: Left lower extremity and left great toe swelling. Impression: Patient is a 78-year-old male with past medical history as noted below who presented to [facility] 11/09/2023 with reports of left lower extremity swelling as well as left great toe edema with a progressively worsening wound and shortness of breath. Upon arrival to ED, vitals were significant for mild hypertension. Labs significant for elevated lactate 2.2. BNP 316. Troponin 44. CRP 2.3. WBC 4.0. Platelets 139. ESR 39. CXR showed peribronchial cuffing which can be seen in bronchitis as well as increased interstitial markings at the lung bases. Left foot x-ray showed lucency comminuted fracture ofthe great toe which may be secondary to osteomyelitis versus posttraumatic fracture. He was given IV vancomycin, Zosyn, Decadron, as well as IV Lasix and admitted to [facility]. Diagnoses: Comminuted fracture of left great toe, cannot exclude osteomyelitis Left toe wound Cellulitis of left lower extremity Peripheral arterial disease Elevated lactate Suspected COPD exacerbation Chronic diastolic CHF, possible acute exacerbation Elevated troponin, likely secondary to demand ischemia Thrombocytopenia, mild. Acute on chronic Anemia, normocytic, chronic CAD GERD Hypertension Gout Remote history of DVT Plan: Ortho consulted; plan for possible surgical intervention tomorrow Will consult cardiology for preop surgical clearance; echocardiogram pending. EKG with age undetermined inferior, anterolateral infarct; frequent PVCs. Mg level ordered; normal For now we will continue his current medical regimen Continue p.o. steroids IV fluids; repeat lactate Continue to monitor routine labs Follow-up blood cultures Follow-up vascular duplex study Continue aggressive pulmonary hygiene with scheduled bronchodilators; O2 as needed to maintain [id number] than 90 Moreno: eileen CVC: na DVT prophylaxis: mechanical Blood Product Consent: na Code Status: Full code Disposition: EDOD 11/12/23 [facility] 7 am to 5 pm [facility] 5 Haiku/secure chat or Page at [phone] with full number After 5 pm pls call the [facility] ER pager Subjective: Patient seen resting comfortably in bed. and daughter present at bedside. He currently denies any acute complaints or concerns. Review of Systems Constitutional: Negative. Negative for chills and fever. Respiratory: Positive for shortness of breath. Negative for cough and wheezing. Cardiovascular: Negative. Negative for chest pain and palpitations. Gastrointestinal: Negative. Negative for abdominal distention, abdominal pain, constipation, diarrhea, nausea and vomiting. Neurological: Negative. Negative for dizziness and light-headedness. Psychiatric/Behavioral: Negative. Negative for agitation, behavioral problems and hallucinations. Vitals and Physical exam: Patient Vitals for the past 24 hrs: BP Temp Temp src Pulse Resp SpO2 Height Weight 11/09/23 1040 (!) 145/82 -- -- 81 17 92 % -- -- 11/09/23 0939 (!) 174/83 -- -- 86 20 96 % -- -- 11/09/23 0619 (!) 158/90 -- -- 63 25 94 % -- -- 11/09/23 0534 (!) 158/86 -- -- 65 16 93 % -- -- 11/09/23 0400 -- -- -- (!) 33 -- 95 % -- -- 11/08/23 2330 -- -- -- 68 18 94 % -- -- 11/08/23 2106 (!) 169/78 36.7 C (98.1 F) Oral 68 18 94 % 1.778 m (70) 99.8 kg (220 lb) Body mass index is 31.57 kg/m . Intake/Output Summary (Last 24 hours) at 11/09/2023 1314 Last data filed at 11/09/2023 0300 Gross per 24 hour Intake 100 ml Output -- Net 100 ml Physical Exam Vitals reviewed. Constitutional: Appearance: Normal appearance. He is not ill-appearing. Cardiovascular: Rate and Rhythm: Normal rate and regular rhythm. Heart sounds: Normal heart sounds. No murmur heard. No friction rub. No gallop. Pulmonary: Breath sounds: Normal breath sounds. No stridor. No wheezing, rhonchi or rales. Abdominal: General: Bowel sounds are normal. There is no distension. Palpations: Abdomen is soft. There is no mass. Tenderness: There is no abdominal tenderness. There is no guarding or rebound. Musculoskeletal: General: Normal range of motion. Skin: General: Skin is warm and dry. Neurological: General: No focal deficit present. Mental Status: He is alert and oriented to person, place, and time. Psychiatric: Mood and Affect: Mood normal. Behavior: Behavior normal. Recent Lab Results: Results from last 7 days Lab Units 11/09/23 0547 11/08/23 2113 SODIUM mmol/L 142 140 POTASSIUM mmol/L 3.9 4.2 CHLORIDE mmol/L 107 110* CO2 mmol/L 25 23 BUN mg/dL 16 16 CREATININE mg/dL 1.22 1.19 Results from last 7 days Lab Units 11/08/23 2113 WBC AUTO K/mcL 4.0* HEMOGLOBIN g/dL 12.9* HEMATOCRIT % 39.4 PLATELETS K/mcL 139* MCV FL 92.9 Results from last 7 days Lab Units 11/09/23 1037 11/09/23 0547 11/08/23 2113 HIGH SENSITIVITY TROPONIN I ng/L 35* 45* 44* Recent Imaging Findings: MR Foot wo and w Contrast Left Narrative: EXAMINATION TYPE: MR FOOT WO AND W CONTRAST LEFT DATE OF EXAM : 11/09/2023 8:00 AM HISTORY: Possible first toe osteo COMPARISON: Radiographic exam 11/08/2023 Impression: FINDINGS/IMPRESSION: Motion degradation of short axis sequences. Ulcer at the medial aspect of the great toe. Marrow signal abnormality of the underlying 1st phalanx, characterized by T2 hyperintense signal, T1 hypointense enhancement, compatible with acute osteomyelitis. T2 hyperintense signal of the head and neck of the adjacent 1st proximal phalanx with preserved T1 signal, consistent with reactive osteitis. Small 1st interphalangeal joint effusion, nonspecific, although septic arthritis is not excluded. Soft tissue swelling and subcutaneous edema of the great toe, presumably cellulitis. No discrete peripheral enhancing fluid collection/abscess is identified. No partial nor full-thickness tendon tear is identified. No evidence of tenosynovitis. Diffuse edema and partial fatty atrophy throughout the plantar musculature, suggesting subacute denervation changes (i.e. diabetes mellitus). -------- FINAL REPORT -------- Dictated By: Roberto Torres Dictated Date: 11/09/2023 09:15 Assigned Physician: Roberto Torres Reviewed and Electronically Signed By: Roberto Torres Signed Date: 11/09/2023 09:19 Workstation ID: [id number] Transcribed By: Self Edit Transcribed Date: 11/09/2023 09:15 XR Chest 1 View Narrative: EXAMINATION TYPE: XR FOOT 3+ VIEWS LEFT, XR CHEST 1 VIEW DATE OF EXAM : 11/08/2023 10:54 PM HISTORY: fracture, COMPARISON: NONE FINDINGS: AP upright chest: (Place. There are increased interstitial markings at the lung bases. The upper lungs are clear. No pneumothorax is significant pleural effusion. Moderate cardiomegaly. Calcificationof thoracic aorta. Peribronchial cuffing. Impression: 1. Peribronchial cuffing which can be seen in bronchitis or asthma. 2. Increased interstitial markings at the lung bases. Recommend correlation with prior outside radiographs to determine chronicity. 3. Moderate cardiomegaly. Left foot: Diffuse soft tissue swelling about the distal calf, ankle and foot. There is soft tissueswelling of the great toe as well. There is lucency and comminuted fracture of the distal phalanx of the great toe. There is mild osteoarthritis. IMPRESSION: 1. Lucency comminuted fracture of the great toe. This may be due to posttraumatic fracture or due to osteomyelitis. Recommend clinical correlation. 2. Diffuse soft tissue swelling of the distal calf, ankle and foot. 3. Mild osteoarthritis. -------- FINAL REPORT -------- Dictated By: Vickey Joshi Dictated Date: 11/09/2023 00:06 Assigned Physician: Vickey Joshi Reviewed and Electronically Signed By: Vickey Joshi Signed Date: 11/09/2023 00:09 Workstation ID: [id number] Transcribed By: Self Edit Transcribed Date: 11/09/2023 00:06 XR Foot 3+ Views Left Narrative: EXAMINATION TYPE: XR FOOT 3+ VIEWS LEFT, XR CHEST 1 VIEW DATE OF EXAM : 11/08/2023 10:54 PM HISTORY: fracture, COMPARISON: NONE FINDINGS: AP upright chest: (Place. There are increased interstitial markings at the lung bases. The upper lungs are clear. No pneumothorax is significant pleural effusion. Moderate cardiomegaly. Calcificationof thoracic aorta. Peribronchial cuffing. Impression: 1. Peribronchial cuffing which can be seen in bronchitis or asthma. 2. Increased interstitial markings at the lung bases. Recommend correlation with prior outside radiographs to determine chronicity. 3. Moderate cardiomegaly. Left foot: Diffuse soft tissue swelling about the distal calf, ankle and foot. There is soft tissueswelling of the great toe as well. There is lucency and comminuted fracture of the distal phalanx of the great toe. There is mild osteoarthritis. IMPRESSION: 1. Lucency comminuted fracture of the great toe. This may be due to posttraumatic fracture or due to osteomyelitis. Recommend clinical correlation. 2. Diffuse soft tissue swelling of the distal calf, ankle and foot. 3. Mild osteoarthritis. -------- FINAL REPORT -------- Dictated By: Vickey Joshi Dictated Date: 11/09/2023 00:06 Assigned Physician: Vickey Joshi Reviewed and Electronically Signed By: Vickey Joshi Signed Date: 11/09/2023 00:09 Workstation ID: [id number] Transcribed By: Self Edit Transcribed Date: 11/09/2023 00:06 Allergies: No Known Allergies * Philippe Nava RN - 11/09/2023 12:21 PM EDT Wound care consultation received, reviewed, and acknowledged. Defer to orthopedic surgery at this time. Recommend keeping site clean, dry, and covered. * Morgan Grover MD - 11/08/2023 9:00 PM EDT Chief Complaint Patient presents with Toe Injury Left foot pain, patient skinned his left foot great toe. Was given cephalexin for injury. Patient with bilateral leg swelling and discoloration. Patient with CHF. History of Present Illness: The patient is a 78 y.o. male who presents with left great toe pain tana wound. He has had a wound for at least a few weeks, has swelling and pain to his toe as well. Hadbeen placed on oral antibiotics on 10/29 when seen in an urgent care. Now with redness to the left leg as well as bilateral LE edema and he has dyspnea with exertion that has developed as well. PAST MEDICAL HISTORY: Patient Active Problem List Diagnosis Cellulitis of right lower leg Past Medical History: Diagnosis Date COPD (chronic obstructive pulmonary disease) ([facility]) Hypertension History reviewed. No pertinent surgical history. No Known Allergies Current Outpatient Medications Medication Instructions albuterol HFA (PROAIR HFA ; PROVENTIL HFA ; VENTOLIN HFA) 90 mcg/actuation inhaler 2 puffs, inhalation, Every 6 hours PRN amLODIPine (NORVASC) 5 mg, oral, Daily aspirin 81 mg, oral, Daily carvediloL (COREG) 3.125 mg, oral, 2 times daily with meals cholecalciferol (VITAMIN D-3) 50,000 Units, oral, Weekly dutasteride (AVODART) 0.5 mg, oral, Daily fluticasone propion-salmeteroL (ADVAIR DISKUS) 100-50 mcg/dose diskus inhaler 1 puff, inhalation, 2times daily, Rinse mouth with water after use to reduce aftertaste and incidence of candidiasis. Donot swallow. furosemide (LASIX) 40 mg, oral, Daily oxyCODONE (ROXICODONE) 5 mg, oral, Every 4 hours PRN pantoprazole (PROTONIX) 40 mg, oral, Every morning before breakfast, Do not crush, chew, or split. potassium chloride (KLOR-CON M15) 15 mEq CR tablet 15 mEq, oral, Daily, Do not crush or chew. rOPINIRole (REQUIP) 2 mg, oral, 2 times daily spironolactone (ALDACTONE) 25 mg, oral, Daily tamsulosin (FLOMAX) 0.4 mg, oral, Daily with breakfast, Capsules should be taken 30 minutes following the same meal each day. tiotropium (SPIRIVA) 18 mcg per inhalation capsule 1 capsule, inhalation, Daily valsartan (DIOVAN) 320 mg, oral, Daily Family History Problem Relation Name Age of Onset Lung cancer Brother SOCIAL HISTORY: Social History Tobacco Use Smoking status: Former Types: Cigarettes Smokeless tobacco: Never Substance Use Topics Alcohol use: Not on file Social History Social History Narrative Not on file REVIEW OF SYSTEMS: As per HPI. All other systems reviewed and negative unless otherwise noted above. PHYSICAL EXAM: ED Triage Vitals Temp Heart Rate Resp BP 11/08/23210511/08/23210511/08/23210511/08/232105 36.7 C (98.1 F) 68 18 (!) 169/78 SpO2 Temp Source Heart Rate Source Patient Position 11/08/23210511/08/23210511/08/23 2330 -- 94 % Oral Monitor BP Location FiO2 (%) -- -- CONSTITUTIONAL: mild increased work of breathing at rest EYES: No scleral icterus. There is no conjunctival pallor. HENT: Mucous membranes moist. External ears normal. CARDIOVASCULAR: Regular rate and rhythm. No pedal edema. PULMONARY/CHEST: exp wheeze ABDOMINAL: Soft, nontender, nondistended. MUSCULOSKELETAL: No deformities. NEURO: The patient is awake and alert. There are no focal neurologic deficits. SKIN: Warm, well perfused. Ulceration to left great toe, warmth and erythema to LLE PSYCH: Normal affect. ED STUDIES: Labs Reviewed BASIC METABOLIC PANEL - Abnormal Result Value Sodium 140 Potassium 4.2 Chloride 110 (*) CO2 23 Anion Gap 7 Glucose 144 (*) BUN 16 Creatinine 1.19 eGFR 63 BUN/Creatinine Ratio 13.4 Calcium 8.0 (*) CBC WITH AUTO DIFFERENTIAL - Abnormal WBC 4.0 (*) RBC 4.24 (*) Hemoglobin 12.9 (*) Hematocrit 39.4 MCV 92.9 MCH 30.4 MCHC 32.7 RDW 13.8 Platelets 139 (*) MPV 11.0 Immature Platelet Fraction 4.0 Neutrophils Relative 54.9 Lymphocytes Relative 33.9 Monocytes Relative 9.4 Eosinophils Relative 1.0 Basophils Relative 0.3 Immature Granulocytes Relative 0.5 Neutrophils Absolute 2.17 Lymphocytes Absolute 1.34 Monocytes Absolute 0.37 Eosinophils Absolute 0.04 Basophils Absolute 0.01 Immature Granulocytes Absolute 0.02 B-TYPE NATRIURETIC PEPTIDE - Abnormal BNP 316 (*) Narrative: <100: CHF is unlikely 100-400: Possible left ventricular dysfunction-unlikely acute decompensation >400: Suspicious for decompensated heart failure. TROPONIN I HIGH SENSITIVITY - Abnormal High Sensitivity Troponin I 44 (*) SEDIMENTATION RATE - Abnormal Sed Rate 39 (*) C-REACTIVE PROTEIN - Abnormal C-Reactive Protein 2.3 (*) LACTATE - Abnormal Lactate 2.2 (*) CULTURE BLOOD CULTURE BLOOD CBC AND DIFFERENTIAL Narrative: The following orders were created for panel order CBC and differential. Procedure Abnormality Status --------- ------ CBC auto differential[[id number]] Abnormal Final result Please view results for these tests on the individual orders. XR Foot 3+ Views Left Final Result 1. Peribronchial cuffing which can be seen in bronchitis or asthma. 2. Increased interstitial markings at the lung bases. Recommend correlation with prior outside radiographs to determine chronicity. 3. Moderate cardiomegaly. Left foot: Diffuse soft tissue swelling about the distal calf, ankle and foot. There is soft tissueswelling of the great toe as well. There is lucency and comminuted fracture of the distal phalanx of the great toe. There is mild osteoarthritis. IMPRESSION: 1. Lucency comminuted fracture of the great toe. This may be due to posttraumatic fracture or due to osteomyelitis. Recommend clinical correlation. 2. Diffuse soft tissue swelling of the distal calf, ankle and foot. 3. Mild osteoarthritis. -------- FINAL REPORT -------- Dictated By: Vickey Joshi Dictated Date: 11/09/2023 00:06 Assigned Physician: Vickey Joshi Reviewed and Electronically Signed By: Vickey Joshi Signed Date: 11/09/2023 00:09 Workstation ID: [id number] Transcribed By: Self Edit Transcribed Date: 11/09/2023 00:06 XR Chest 1 View Final Result 1. Peribronchial cuffing which can be seen in bronchitis or asthma. 2. Increased interstitial markings at the lung bases. Recommend correlation with prior outside radiographs to determine chronicity. 3. Moderate cardiomegaly. Left foot: Diffuse soft tissue swelling about the distal calf, ankle and foot. There is soft tissueswelling of the great toe as well. There is lucency and comminuted fracture of the distal phalanx of the great toe. There is mild osteoarthritis. IMPRESSION: 1. Lucency comminuted fracture of the great toe. This may be due to posttraumatic fracture or due to osteomyelitis. Recommend clinical correlation. 2. Diffuse soft tissue swelling of the distal calf, ankle and foot. 3. Mild osteoarthritis. -------- FINAL REPORT -------- Dictated By: Vickey Joshi Dictated Date: 11/09/2023 00:06 Assigned Physician: Vickey Joshi Reviewed and Electronically Signed By: Vickey Joshi Signed Date: 11/09/2023 00:09 Workstation ID: [id number] Transcribed By: Self Edit Transcribed Date: 11/09/2023 00:06 ED COURSE and Medical Decisoin Making: Vitals: 11/08/23 2106 11/08/23 2330 BP: (!) 169/78 Pulse: 68 68 Resp: 18 18 Temp: 36.7 C (98.1 F) TempSrc: Oral SpO2: 94% 94% Weight: 99.8 kg (220 lb) Height: 1.778 m (70) Medications piperacillin-tazobactam (ZOSYN) 4.5 g in sodium chloride 0.9 % 100 mL IVPB - MBP (has no administration in time range) Patient has multiple things going on. He has a mild exacerbation of his copd, also has mild chf. This has resulted in sob with exertion and mild increased work of breathing, desaturated when walking in to the ED, but saturations went back up to normal when he rested. He has a wound on his left great toe and swelling to the toe as well. LLE has evidence of cellulitis as well. X ray shows a fracture, possible osteomyelitis, he does not recall much trauma, but also does not have much feeling in the toe. Will culture, treat with zosyn, vancomycin. Escalation of care including admission/observation considered - : admission Discussed management with physician/healthcare provider/other source -: Yes, Hospitalist, discussedCIC Independent interpretation of EKG, rhythm strip, or radiology study? Yes, Plain x-ray: My interpretation is cxr shows findings consistent with bronchitis, mild edema. Left foot x ray shows left greattoe fx, possible osteo. Discussed with independent historian -: Yes, daughter in law Review of External Record -: Yes: Inpatient record last year for sepsis Chronic Conditions Affecting Care -: Yes: Hypertension and peripheral vascular disease Impression: Chf Copd exacerbation Possible osteomyelitis left great toe Cellulitis left lower extremity Procedures Morgan Grover MD 11/09/23 0022 Morgan Grover MD 11/09/23 0037 documented in this encounterAmerican Academic Health [id number] Hospital course Narrative* Alba Martin NP - 11/13/2023 12:39 PM EDT Images from the original note were not included. Discharge Summary Admission Date: 11/08/2023 Discharge Date: 11/13/2023 Admitting Provider: [facility] ([facility]) Primary Care Physician at Discharge: Alisia Rees MD Discharge Disposition Home Patient condition on discharge Hemodynamically stable Hospital Course Patient is a 78-year-old obese male with a PMH as noted below who presented to [facility] 11/09/2023 with complaints of left lower lower extremity swelling as well as left great toe edema with progressive dyspnea and worsening wound. Chest x- ray showed parabronchial cuffing seen in bronchitis as well as increased interstitial lung markings. X-ray of his left foot showed lucency and commuted fracture of the great toe thought to be secondary to osteomyelitis versus posttraumatic fracture. He was subsequently admitted with consult orthopedic services. GEORGETTE 11/08 showed normal perfusion bilaterally. MRI left lower extremity showed soft tissue swelling and subcutaneous edema of the great toe, presumably cellulitis but no evidence of abscess or fluid collection no evidence of tendon tear, tenosynovitis. Cardiology was also consulted. TTE 11/09 showed an EF of 35-40% with an inferior and inferior lateral wall being mildly hypokinetic with an mildly elevated LV. His medical regimen was adjusted withplan for outpatient cardiology follow-up in 1-2 weeks. Outpatient orthopedic follow-up as well in 1- 2 weeks. Discharge Final Diagnosis Commuted fracture of the left great toe with findings concerning for osteomyelitis. Status post left great toe partial amputation 11/10/2023 Cellulitis of the left great toe, see above RLE lateral wound, NOS LLE plantar left great toe wound NOS AECOPD, suspected on admission Acute on chronic combined systolic and diastolic heart failure, TTE 11/10/2023 with EF 35-40%, baseline unknown Ischemic cardiomyopathy given history of prior [place] and PCI/CAD CAD with history of PCI over 10 years prior, follows with a primary transition mgr rn in [place] Peripheral artery disease Hypertension Dyslipidemia Morbidly obese, BMI greater than 30 Anemia, normocytic, NOS Thrombocytopenia, mild, NOS Elevated troponin thought to be related to demand ischemia, workup in progress GERD History of gout Remote history of DVT, per patient Iron deviancy anemia in patient with heart failure Discharge Medication List Your medication list START taking these medications Instructions Last Dose Given Next Dose Due atorvastatin 40 mg tablet Commonly known as: LIPITOR Take 1 tablet (40 mg total) by mouth at bedtime. dapagliflozin propanediol 10 mg tablet Commonly known as: FARXIGA Start taking on: November 14, 2023 Take 1 tablet (10 mg total) by mouth 1 (one) time each day. HYDROcodone-acetaminophen 5-325 mg per tablet Commonly known as: NORCO Take 1 tablet by mouth every 4 (four) hours if needed for severe pain for up to 7 days. Max Daily Amount: 6 tablets methylPREDNISolone 4 mg tablet Commonly known as: MEDROL DOSPAK Take as directed on package. metoprolol succinate 25 mg 24 hr tablet Commonly known as: TOPROL-XL Start taking on: November 14, 2023 Take 1 tablet (25 mg total) by mouth 1 (one) time each day. Do not crush or chew. sacubitriL-valsartan 24-26 mg per tablet Commonly known as: ENTRESTO Take 1 tablet by mouth 2 (two) times a day. CHANGE how you take these medications Instructions Last Dose Given Next Dose Due aspirin 81 mg EC tablet What changed: when to take this Take 1 tablet (81 mg total) by mouth 2 (two) times a day. furosemide 40 mg tablet Commonly known as: LASIX What changed: when to take this reasons to take this Take 1 tablet (40 mg total) by mouth 1 (one) time each day if needed (edema). spironolactone 25 mg tablet Commonly known as: ALDACTONE What changed: You were already taking a medication with the same name, and this prescription was added. Make sure you understand how and when to take each. Take 1 tablet (25 mg total) by mouth 1 (one) time each day. spironolactone 25 mg tablet Commonly known as: ALDACTONE What changed: Another medication with the same name was added. Make sure you understand how and when to take each. Take 1 tablet (25 mg total) by mouth 1 (one) time each day. CONTINUE taking these medications Instructions Last Dose Given Next Dose Due albuterol HFA 90 mcg/actuation inhaler Commonly known as: PROAIR HFA ; PROVENTIL HFA ; VENTOLIN HFA Inhale 2 puffs by mouth every 6 (six) hours if needed for wheezing. allopurinoL 100 mg tablet Commonly known as: ZYLOPRIM Take 1 tablet (100 mg total) by mouth 1 (one) time each day. amLODIPine 5 mg tablet Commonly known as: NORVASC Take 1 tablet (5 mg total) by mouth 1 (one) time each day. cholecalciferol 25 mcg (1,000 unit) tablet Commonly known as: VITAMIN D-3 Take 1 tablet (1,000 Units total) by mouth 1 (one) time each day. finasteride 5 mg tablet Commonly known as: PROSCAR Take 1 tablet (5 mg total) by mouth 1 (one) time each day. fluticasone propion-salmeteroL 100-50 mcg/dose diskus inhaler Commonly known as: ADVAIR DISKUS Inhale 1 puff by mouth 2 (two) times a day. Rinse mouth with water after use to reduce aftertaste and incidence of candidiasis. Do not swallow. High Potency Iron 27 mg iron tablet Generic drug: ferrous sulfate Take 27 mg by mouth 1 (one) time each day. oxyCODONE 5 mg immediate release tablet Commonly known as: ROXICODONE Take 1 tablet (5 mg total) by mouth every 4 (four) hours if needed (moderate pain or when therapiesfor mild pain were not effective). Max Daily Amount: 30 mg pantoprazole 40 mg EC tablet Commonly known as: PROTONIX Take 1 tablet (40 mg total) by mouth 1 (one) time each day before breakfast. Do not crush, chew, orsplit. phenylephrine 10 mg tablet Commonly known as: SUDAFED PE Take 1 tablet (10 mg total) by mouth 2 (two) times a day if needed for congestion. potassium chloride 10 mEq CR tablet Commonly known as: KLOR-CON Take 1 tablet (10 mEq total) by mouth 2 (two) times a day. rOPINIRole 2 mg tablet Commonly known as: REQUIP Take 1 tablet (2 mg total) by mouth 2 (two) times a day. tamsulosin 0.4 mg 24 hr capsule Commonly known as: FLOMAX Take 1 capsule (0.4 mg total) by mouth 1 (one) time each day with breakfast. Capsules should be taken 30 minutes following the same meal each day. Tart Hernandez Extract 1,000 mg capsule Generic drug: sour hernandez extract Take 1,000 mg by mouth 1 (one) time each day. tiotropium 18 mcg per inhalation capsule Commonly known as: SPIRIVA Place 1 capsule (18 mcg total) into inhaler and inhale 1 (one) time each day. UNABLE TO FIND Take 450 mg by mouth 1 (one) time each day. Med Name: Apple Cider Vinegar UNABLE TO FIND Take 1 tablet by mouth 1 (one) time each day. Med Name: The Prostate Formula STOP taking these medications cephalexin 500 mg capsule Commonly known as: KEFLEX valsartan 320 mg tablet Commonly known as: DIOVAN Where to Get Your Medications These medications were sent to [facility]/pharmacy #[id number] - [address] AT [address], [place] [address] aspirin 81 mg EC tablet atorvastatin 40 mg tablet dapagliflozin propanediol 10 mg tablet methylPREDNISolone 4 mg tablet metoprolol succinate 25 mg 24 hr tablet sacubitriL-valsartan 24-26 mg per tablet spironolactone 25 mg tablet You can get these medications from any pharmacy Bring a paper prescription for each of these medications HYDROcodone-acetaminophen 5-325 mg per tablet Information about where to get these medications is not yet available Ask your nurse or doctor about these medications furosemide 40 mg tablet Code Status at Discharge: Full Code - Confirmed Outpatient Follow-Up Scheduled Future Appointments Provider Specialty Dept Phone Center 11/20/2023 3:00 PM (Arrive by 2:30 PM) Nallely Benavidez Cardiology [phone] [facility] Contact information for follow-up Milan Castro MD Specialty: Orthopaedics, Orthopedic Surgery Relationship: Surgeon [address] [place] [address] Next Steps: Schedule an appointment as soon as possible for a visit in 2 week(s) Primary care provider (PCP) Next Steps: Follow up Questions: Follow-Up in: 1 Follow-Up in: Months Scheduling Instructions: Please schedule a hospital follow up appointment. Take a list of your discharge medications to your appointment. Alisia Rees MD Relationship: PCP - [facility] [address] [facility] [id number] Next Steps: Follow up Prakash Baldwin MD Specialty: Cardiology Relationship: Consulting Physician [address] [place] [address] Next Steps: Follow up Questions: Follow-Up in: 1 Follow-Up in: Weeks Milan Castro MD Specialty: Orthopaedics, Orthopedic Surgery Relationship: Surgeon [address] [place] [address] Next Steps: Follow up Questions: Follow-Up in: 1 Follow-Up in: Weeks Vitals and Physical Exam Patient Vitals for the past 24 hrs: BP Temp Temp src Pulse Resp SpO2 Weight 11/13/23 1159 125/70 36.4 C (97.5 F) Oral 65 16 92 % -- 11/13/23 1129 -- -- -- -- -- 92 % -- 11/13/23 1108 -- -- -- -- -- 93 % -- 11/13/23 0818 (!) 143/88 36.4 C (97.5 F) Oral 60 16 91 % -- 11/13/23 0506 119/65 36.3 C (97.3 F) Oral 60 18 (!) 88 % 99 kg (218 lb 4.1 oz) 11/13/23 0100 -- -- -- -- -- 91 % -- 11/13/23 0035 (!) 143/78 -- -- 62 18 (!) 85 % -- 11/12/23 1735 (!) 149/68 37 C (98.6 F) Oral 64 16 90 % -- Physical Exam Vitals reviewed. Constitutional: Appearance: Normal appearance. He is not ill-appearing. Cardiovascular: Rate and Rhythm: Normal rate and regular rhythm. Heart sounds: Normal heart sounds. No murmur heard. No friction rub. No gallop. Pulmonary: Breath sounds: No stridor. No wheezing. No rhonchi or rales. Abdominal: General: Bowel sounds are normal. There is no distension. Palpations: Abdomen is soft. There is no mass. Tenderness: There is no abdominal tenderness. There is no guarding or rebound. Musculoskeletal: General: Normal range of motion. Skin: General: Skin is warm and dry. Neurological: General: No focal deficit present. Mental Status: He is alert and oriented to person, place, and time. Psychiatric: Mood and Affect: Mood normal. Behavior: Behavior normal. Test Results and active issues pending at Discharge na Pending Labs Order Current Status Blood Culture, Peripheral #1 Preliminary result Blood Culture, Peripheral #2 Preliminary result Culture tissue with gram stain Preliminary result Procedures Performed Left great toe amputation through the proximal phalange 11/08/2023 - 11/10/2023 Milan Castro MD Recent Lab Results Results from last 7 days Lab Units 11/13/23 0511 11/12/23 0331 11/10/23 0451 11/09/23 0547 11/08/23 2113 SODIUM mmol/L 138 135* 140 142 140 POTASSIUM mmol/L 4.3 4.3 3.8 3.9 4.2 CHLORIDE mmol/L 107 103 108* 107 110* CO2 mmol/L 24 23 25 25 23 BUN mg/dL 25* 23* 21* 16 16 CREATININE mg/dL 1.11 1.21 0.96 1.22 1.19 Results from last 7 days Lab Units 11/13/23 0511 11/12/23 0331 11/11/23 0416 11/10/23 0451 11/08/23 2113 WBC AUTO K/mcL 4.3* 7.6 6.7 5.0 4.0* HEMOGLOBIN g/dL 14.1 13.4* 11.4* 11.9* 12.9* HEMATOCRIT % 43.6 41.7 36.0* 36.6* 39.4 PLATELETS K/mcL 143 147 126* 131* 139* MCV FL 92.8 93.9 93.3 92.0 92.9 Recent Imaging findings XR Chest 1 View Narrative: EXAMINATION TYPE: XR CHEST 1 VIEW DATE OF EXAM : 11/12/2023 10:38 AM HISTORY: pneumonia COMPARISON: 11/08/2023 FINDINGS: Loop recorder device. Stable cardiomediastinal silhouette. Low lung volumes. There are grossly stable mild bibasilar opacities of uncertain chronicity. There is no large pleural effusion. No pneumothorax. Impression: No significant interval change. -------- FINAL REPORT -------- Dictated By: Kuldeep Angulo Dictated Date: 11/12/2023 11:13 Assigned Physician: Kuldeep Angulo Reviewed and Electronically Signed By: Kuldeep Angulo Signed Date: 11/12/2023 11:14 Workstation ID: [id number] Transcribed By: Self Edit Transcribed Date: 11/12/2023 11:13 Time preparing discharge and coordination of care 35 mins Alba Martin NP [facility] ([facility]) * Zunilda Almanza RN - 11/12/2023 8:55 AM EDT 2 gm Low sodium diet, 2L daily fluid restriction. documented in this encounterAmerican Academic Health [id number] Consult note* Zunilda Almanza RN - 11/12/2023 8:59 AM EDTAssociated Order(s): INPATIENT CONSULT TO CONGESTIVE HEART FAILURE EDUCATION Heart Failure Education Initiated : Reviewed medications, daily weights, low sodium diet, daily activity levels, signs and symptoms of Heart Failure and when to call physician. Evaluation of LV Function : 11/10/23 TTE EF 35-40%, trace MR, trace TR Heart Failure GDMT Medications : Metoprolol, Entresto, Farxiga; per cardio, at dc- aldactone daily,lasix prn Referrals : HF Education Primary Armed Security Officer: Follows with transition mgr rn in [place]- will follow up in 1- 2 wks at [facility] prior to returning to [place] Comments : Congestive heart failure; acute onchronic systolic dysfunction; Left big toe osteomyelitis- S/P left great toe partial amputation 11/10/23 The patient presented with left toe swelling, lower extremity edema, dyspnea. 10-12 days ago, injured his toe. Currently visiting in [place] from [place]. Reviewed 2gm sodium diet, 2L fluid restriction, daily weights, HF Zone sheet provided. States he drinks about 2 20 ounce Mountain Dew pops per day. Reviewed that this is 40 ounces of his recommended 64 ounces. Follow up arranged with cardiology for the pt to be seen 1-2 weeks in the cardiology office prior to the patient returning to [place]. Risk of Unplanned Readmission Score: MEDIUM, 22% CHF [facility] referral: n/a- osteomyelitis as primary currently Recommendations : Close out pt follow up with cardiology, orthopedics in 2 weeks. [facility] Health [id number] Consult note* Zunilda Almanza RN - 11/12/2023 8:59 AM EDTAssociated Order(s): INPATIENT CONSULT TO CONGESTIVE HEART FAILURE EDUCATION Heart Failure Education Initiated : Reviewed medications, daily weights, low sodium diet, daily activity levels, signs and symptoms of Heart Failure and when to call physician. Evaluation of LV Function : 11/10/23 TTE EF 35-40%, trace MR, trace TR Heart Failure GDMT Medications : Metoprolol, Entresto, Farxiga; per cardio, at dc- aldactone daily,lasix prn Referrals : HF Education Primary Armed Security Officer: Follows with transition mgr rn in [place]- will follow up in 1- 2 wks at [facility] prior to returning to [place] Comments : Congestive heart failure; acute onchronic systolic dysfunction; Left big toe osteomyelitis- S/P left great toe partial amputation 11/10/23 The patient presented with left toe swelling, lower extremity edema, dyspnea. 10-12 days ago, injured his toe. Currently visiting in [place] from [place]. Reviewed 2gm sodium diet, 2L fluid restriction, daily weights, HF Zone sheet provided. States he drinks about 2 20 ounce Mountain Dew pops per day. Reviewed that this is 40 ounces of his recommended 64 ounces. Follow up arranged with cardiology for the pt to be seen 1-2 weeks in the cardiology office prior to the patient returning to [place]. Risk of Unplanned Readmission Score: MEDIUM, 22% CHF [facility] referral: n/a- osteomyelitis as primary currently Recommendations : Close out pt follow up with cardiology, orthopedics in 2 weeks. * Emma Vasquez, PT - 11/11/2023 10:48 AM EDT Patient: Yoni Villalpando Age: 78 y.o. Sex: male Acute congestive heart failure, unspecified heart failure type (CMS/HCC) [facility] Physical Therapy Evaluation Multi-Disciplinary Rounding Report Ambulation: Walking Assistance: Standby assistance Walking Deficit: Supervision/safety awareness Device: Rolling walker Distance Ambulated (ft): 150 PLOF: Level of Guion: Independent with mobility and functional transfers Lives With: Spouse (pt lives in [place] but is up visiting son in [place], information is for son's house) Type of Home: House Home Adaptive Equipment: Walker - rolling, Cane, Wheelchair-manual, Crutches (but these devices arein [place]) Home Layout: Two level, Full bath main level, Able to live on main level with bedroom/bathroom Home Access: Stairs to enter with rails Home Living Comments: pt home setup info is pt son's house DME Needs: 2 wheeled walker (his is currently in [place]) PT Discharge Recommendation: Home independent Reason for current recommendation based on assessment: no acute P.T. needs identified SUBJECTIVE RN approves session. Pt in chair upon arrival, agreeable to participate. Past Medical History: Diagnosis Date Congestive heart failure (CHF) ([facility]/HCC) COPD (chronic obstructive pulmonary disease) ([facility]/HCC) Coronary artery disease Hyperlipidemia Hypertension Myocardial infarction ([facility]/HCC) Peripheral arterial disease with history of revascularization ([facility]/HCC) Vocal cord cancer ([facility]/HCC) Past Surgical History: Procedure Laterality Date CARDIAC CATHETERIZATION CORONARY STENT PLACEMENT HIP ARTHROPLASTY Left 2017 STENT PERIPHERAL VASCULAR THROAT SURGERY OBJECTIVE Precautions: Precautions Medical Precautions: Fall Risk Safety Interventions: Call peña within reach, Gait belt LLE Weight Bearing Status: Heel Touch (pt already wearing offloading shoe) Vitals/Pain: Pain Assessment Pain Assessment: No/denies pain Cognition: Cognition Overall Cognitive Status: Within Functional Limits Arousal/Alertness: Appropriate responses to stimuli Home Living: Home Living Lives With: Spouse (pt lives in [place] but is up visiting son in [place], information is for son's house) Home Adaptive Equipment: Walker - rolling, Cane, Wheelchair-manual, Crutches (but these devices arein [place]) Home Layout: Two level, Full bath main level, Able to live on main level with bedroom/bathroom Home Access: Stairs to enter with rails Entrance Stairs-Number of Steps: 2 Prior Function: Prior Function Level of Guion: Independent with mobility and functional transfers Prior Device Use: No prior device use General Assessments: Functional Assessments: Bed Mobility Bed Mobility Comments: pt in chair pre/post session Transfers Sit to Stand Assistance: Standby assistance Sit to Stand Deficit: Supervision/safety awareness Ambulation Walking Assistance: Standby assistance Walking Deficit: Supervision/safety awareness Device: Rolling walker Distance Ambulated (ft): 150 Comments: cues for short strides Stairs 1 step (curb): Assistance: Standby assistance 1 step (curb): Deficit: Verbal cueing, Supervision/safety awareness Rails: Left Device: No device Number of Stairs: 2 Stairs Comments: son present for stair education Extremity Assessments: RLE Assessment RLE Assessment: Within Functional Limits LLE Assessment LLE Assessment: Within Functional Limits Additional Assessments: Additional Assessments/Tests Additional Assessment/Test #1: 6 clicks Procedure/Treatment: Other Activities: ASSESSMENT P.T. eval complete. Pt is POD 1 s/p L great toe amputation. Orders are for heel WB, he has off loading shoe donned already. He ambulated 150' with walker, navigated 2 stairs. Pt tolerated treatment without complications . P.T. signing off , pt safe with functional mobility with no acute goals identified. Pt was left in chair with call light. PT Assessment Evaluation/Treatment Tolerance: Patient tolerated treatment well Medical Staff Made Aware: Yes PLAN Acute Care Plan: PT Plan: No skilled PT PT Discharge Recommendations: Home independent Equipment Recommended: 2 wheeled walker (his is currently in [place]) Encounter Problems Encounter Problems (Active) There are no active problems. Encounter Problems (Resolved) There are no resolved problems. EDUCATION Education Documentation Mobility Training, taught by Emma Vasquez PT at 11/11/2023 11:23 AM. Learner: Patient Readiness: Acceptance Method: Explanation Response: Verbalizes Understanding Education Comments No comments found. Emma Vasquez PT * Lien Pierre, OT - 11/10/2023 4:09 PM EDT Patient: Yoni Villalpando Age: 78 y.o. Sex: male Acute congestive heart failure, unspecified heart failure type (CMS/HCC) [facility] Occupational Therapy Evaluation Multi-Disciplinary Rounding Report Ambulation: Functional Mobility Walking Assistance: Supervision Device: Rolling walker Distance Ambulated (ft): 60 PLOF: Level of Guion: Independent with mobility and functional transfers Lives With: (pt typically lives with spouse in [place] however pt visiting son in [place] currently.) Type of Home: House Home Adaptive Equipment: (pt reports all dme in [place].) Bathroom Equipment: Grab bars in shower Home Layout: Two level, Full bath main level, Able to live on main level with bedroom/bathroom Home Access: Stairs to enter with rails Home Living Comments: pt home setup info is pt son's house DME Needs: Tub transfer bench (front wheeled walker) OT Discharge Recommendation: Home independent Reason for current recommendation: no needs SUBJECTIVE Past Medical History: Diagnosis Date Congestive heart failure (CHF) (CMS/HCC) COPD (chronic obstructive pulmonary disease) (CMS/HCC) Coronary artery disease Hyperlipidemia Hypertension Myocardial infarction (CMS/HCC) Peripheral arterial disease with history of revascularization (CMS/HCC) Vocal cord cancer (CMS/HCC) Past Surgical History: Procedure Laterality Date CARDIAC CATHETERIZATION CORONARY STENT PLACEMENT HIP ARTHROPLASTY Left 2017 STENT PERIPHERAL VASCULAR THROAT SURGERY OBJECTIVE Precautions: Precautions Medical Precautions: Fall Risk Safety Interventions: Call peña within reach, ID band on, Gait belt, Chair alarm, Bed alarm LLE Weight Bearing Status: Heel Touch (in toe-offloading shoe) Vitals/Pain: Oxygen Therapy Oxygen Therapy: None (Room air) Pain Assessment Pain Assessment: No/denies pain Pain Score: 0 - No pain Home Living: Home Living Type of Home: House Lives With: (pt typically lives with spouse in [place] however pt visiting son in [place] currently.) Home Adaptive Equipment: (pt reports all dme in [place].) Home Living Comments: pt home setup info is pt son's house Home Layout: Two level, Full bath main level, Able to live on main level with bedroom/bathroom Home Access: Stairs to enter with rails Entrance Stairs-Rails: Rail on the right going up Entrance Stairs-Number of Steps: 2 Bathroom Shower/Tub: Tub/shower unit Bathroom Toilet: Standard Bathroom Equipment: Grab bars in shower Prior Function: Prior Function Level of Guion: Independent with mobility and functional transfers Ambulation Status: Community ambulator, Household ambulator Indoor Mobility Assistance: Independent Prior Device Use: No prior device use Do you drive?: Yes Vocational: Retired Which is your dominant hand?: Right Prior ADL/IADL History: ADL/IADL History ADL Assistance (Self Care): Independent Homemaking Assistance (Functional Cognition): Independent General Assessments: ADL Grooming Assistance: Supervision LE Dressing Assistance: Modified independent Toileting Assistance: Modified independent Bed Mobility Lying to Sitting Assistance: Modified independent Functional Transfers Sit to Stand Assistance: Supervision Chair/Bed to Chair/Bed Assistance: Supervision Toilet Transfer Assistance: Supervision Functional Mobility Walking Assistance: Supervision Device: Rolling walker Distance Ambulated (ft): 60 Cognitive Status: Cognition Orientation Level: Oriented X4 Sensation Light Touch: Partial deficits in the LLE (pt reports numbness) Extremity Assessments: Hand Function Gross Grasp: Functional Coordination Coordination: Functional RUE Assessment RUE Assessment: Within Functional Limits LUE Assessment LUE Assessment: Within Functional Limits Procedure/Treatment: Therapeutic Activity Therapeutic Activity Time Entry: 8 Therapeutic Activity 1: pt educated on heel weight bearing with demonstration and required verbal cues for maintaining during functional mobility ASSESSMENT O.Judith shelton completed. Pt status post L great toe amputation. Pt educated on heel weight bearing L L.E. and pt provided with toe-offloading shoe. Pt alert and oriented times 4. Pt within functional limits bilateral UE strength and ROM. Pt supervision to modified independent level with ADL tasks with front wheeled walker. Pt reports no questions or concerns with ADLs for home going. Pt seated in chair at end of session with needs in reach and RN notified with chair alarm set and L L.E. elevated onpillows and stool. O.T. recommend pt discharge with no further O.T. services. O.Judith shelton only due topt independent. [facility] Inpatient Daily Activity Short Form Scoring Form: Unable: 1 A Lot: 2 A Little: 3 None: 4 How much help from another person does the patient currently need? Putting on and taking off regular lower body clothing? [] [] [] [x] Bathing (including washing, rinsing, drying)? [] [] [x] [] Toileting, which includes using toilet, bedpan, or urinal? [] [] [] [x] Putting on and taking off regular upper body clothing? [] [] [] [x] Personal grooming such as brushing teeth? [] [] [x] [] Eating meals? [] [] [] [x] Score: OT Assessment OT Assessment Results: Decreased ADL status, Decreased functional mobility Prognosis: Good Evaluation/Treatment Tolerance: Patient tolerated treatment well Medical Staff Made Aware: Yes Comments: RN notified PLAN Acute Care Plan: Treatment Interventions: Patient/family training, Equipment evaluation/education, ADL retraining, Functional transfer training OT Plan: No skilled OT No Skilled OT: No acute OT goals identified OT - Evaluation Status: Complete OT Discharge Recommendations: Home independent Equipment Recommended: Tub transfer bench (front wheeled walker) Encounter Problems Encounter Problems (Active) There are no active problems. Encounter Problems (Resolved) There are no resolved problems. EDUCATION Education Documentation No documentation found. Education Comments No comments found. * Milan Castro MD - 11/10/2023 12:35 PM EDT Orthopedic Surgery Consult Note Chief complaint: Left great toe wound History of present illness: The patient is a 78-year-old male who presented to [facility] emergency room on 11/08/2023. He has had a wound over the plantar aspect of his left great toe for the past 2 months. Initially this was cared for in [place] and is progressively worsened. Ultimately he is here in [place] now and family recommended he come to the emergency room. He does not have significant pain there. Does have a history of a vascular stent. Does not have diabetes with neuropathy. Past Medical History: Diagnosis Date Congestive heart failure (CHF) ([facility]) COPD (chronic obstructive pulmonary disease) ([facility]) Coronary artery disease Hyperlipidemia Hypertension Myocardial infarction ([facility]) Peripheral arterial disease with history of revascularization ([facility]) Vocal cord cancer ([facility]) Current Outpatient Medications Medication Instructions albuterol HFA (PROAIR HFA ; PROVENTIL HFA ; VENTOLIN HFA) 90 mcg/actuation inhaler 2 puffs, inhalation, Every 6 hours PRN allopurinoL (ZYLOPRIM) 100 mg, oral, Daily amLODIPine (NORVASC) 5 mg, oral, Daily aspirin 81 mg, oral, Daily cephalexin (KEFLEX) 500 mg, oral, Every 6 hours cholecalciferol (VITAMIN D-3) 1,000 Units, oral, Daily finasteride (PROSCAR) 5 mg, oral, Daily, fluticasone propion-salmeteroL (ADVAIR DISKUS) 100-50 mcg/dose diskus inhaler 1 puff, inhalation, 2times daily, Rinse mouth with water after use to reduce aftertaste and incidence of candidiasis. Donot swallow. furosemide (LASIX) 40 mg, oral, Daily High Potency Iron 27 mg, oral, Daily oxyCODONE (ROXICODONE) 5 mg, oral, Every 4 hours PRN pantoprazole (PROTONIX) 40 mg, oral, Every morning before breakfast, Do not crush, chew, or split. phenylephrine (SUDAFED PE) 10 mg, oral, 2 times daily PRN potassium chloride (KLOR-CON) 10 mEq CR tablet 10 mEq, oral, 2 times daily, rOPINIRole (REQUIP) 2 mg, oral, 2 times daily spironolactone (ALDACTONE) 25 mg, oral, Daily tamsulosin (FLOMAX) 0.4 mg, oral, Daily with breakfast, Capsules should be taken 30 minutes following the same meal each day. Tart Hernandez Extract 1,000 mg, oral, Daily tiotropium (SPIRIVA) 18 mcg per inhalation capsule 1 capsule, inhalation, Daily UNABLE TO FIND 450 mg, oral, Daily, Med Name: Apple Cider Vinegar UNABLE TO FIND 1 tablet, oral, Daily, Med Name: The Prostate Formula valsartan (DIOVAN) 320 mg, oral, Daily No Known Allergies Past Surgical History: Procedure Laterality Date CARDIAC CATHETERIZATION CORONARY STENT PLACEMENT HIP ARTHROPLASTY Left 2017 STENT PERIPHERAL VASCULAR THROAT SURGERY Social History Socioeconomic History Marital status: Spouse name: Not on file Number of children: Not on file Years of education: Not on file Highest education level: Not on file Occupational History Not on file Tobacco Use Smoking status: Former Types: Cigarettes Smokeless tobacco: Never Vaping Use Vaping status: Never Used Substance and Sexual Activity Alcohol use: Never Drug use: Never Sexual activity: Not on file Other Topics Concern Not on file Social History Narrative Not on file Physical Exam: General: The patient is awake alert and oriented and in no acute distress. Cardiac exam: Regular rate. Respiratory exam: There is no increased work of breathing noted. There are symmetric rise and fall the chest bilaterally. Abdomen exam: The abdomen is soft and nontender. Musculoskeletal exam: Right upper extremity: There is no obvious deformity or lesion. The patient is nontender to palpation throughout it. The patient can actively range it within the constraints of the bed without difficulty. Left upper extremity: There is no obvious deformity or lesion. The patient is nontender to palpation throughout it. The patient can actively range it within the constraints of the bed without difficulty. Right lower extremity: Right lower extremity is examined. There is a superficial ulcer on the plantar aspect of the foot over the fifth metatarsal head there is good granulation tissue at the base, mild hyperkeratotic skin around the periphery. Does not probe to bone. No surrounding cellulitis. Left lower extremity: Left lower extremity is examined. He can flex his hip flex and extend his knee and dorsiflex plantarflex his ankle and motors lesser toes without difficulty. There is an ulcer over the plantar aspect of the great toe with surrounding cellulitis. Purulent drainage when I squeeze on this. The other toes are unremarkable. Brisk cap refill in all of his toes. Sensation present by light touch in the dorsal and plantar aspect of his foot. Pelvis: The skin is intact. There is no gross pelvic instability. No tenderness to palpation. Labs: Recent Results (from the past 24 hour(s)) Lactate Collection Time: 11/09/23 12:48 PM Result Value Ref Range Lactate 3.4 (H) 0.5 - 2.0 mmol/L PST green LI heparin tube Collection Time: 11/10/23 4:03 AM Result Value Ref Range Extra Tube Hold for add-ons. Troponin I high sensitivity Collection Time: 11/10/23 4:51 AM Result Value Ref Range High Sensitivity Troponin I 39 (H) <20 ng/L Basic metabolic panel Collection Time: 11/10/23 4:51 AM Result Value Ref Range Sodium 140 136 - 145 mmol/L Potassium 3.8 3.6 - 5.1 mmol/L Chloride 108 (H) 98 - 107 mmol/L CO2 25 22 - 32 mmol/L Anion Gap 7 6 - 18 Glucose 106 (H) 70 - 99 mg/dL BUN 21 (H) 8 - 20 mg/dL Creatinine 0.96 0.60 - 1.30 mg/dL eGFR 82 >=60 mL/min/1.73m2 BUN/Creatinine Ratio 21.9 (H) 12.0 - 20.0 Calcium 8.2 (L) 8.9 - 10.3 mg/dL Complete blood count Collection Time: 11/10/23 4:51 AM Result Value Ref Range WBC 5.0 4.6 - 10.2 K/mcL RBC 3.98 (L) 4.30 - 5.70 M/mcL Hemoglobin 11.9 (L) 13.5 - 17.5 g/dL Hematocrit 36.6 (L) 39.0 - 49.0 % MCV 92.0 80.0 - 97.0 FL MCH 29.9 27.0 - 34.0 pcg MCHC 32.5 30.8 - 35.3 g/dL RDW 13.7 11.0 - 14.8 % Platelets 131 (L) 142 - 424 K/mcL MPV 11.0 6.2 - 12.1 FL Immature Platelet Fraction 5.4 1.4 - 10.8 % Lactate Collection Time: 11/10/23 4:51 AM Result Value Ref Range Lactate 1.3 0.5 - 2.0 mmol/L Transthoracic echocardiogram (TTE) complete with PRN contrast, bubble, strain, and 3D order panel Collection Time: 11/10/23 8:25 AM Result Value Ref Range Left Atrium Minor Clendenin 6.4 cm Left Atrium Major Clendenin 5.5 cm LA Area Sys (A2C) 22 cm2 LA Area Sys (A4C) 19 cm2 LA Volume (BP) 62 mL LA Size 4.7 cm AV Mean Gradient 7 mmHg Ao VTI 32.2 cm AV Peak Carlito 1.9 m/s AV Peak Gradient 14 mmHg AV Area Continuity Equation 1.8 cm2 AV Area Peak Velocity 1.7 cm2 Aortic Root 3.1 cm Ascending Aorta 3.2 cm Ejection Fraction (3D) 50 % LVOT Stroke Volume 58 mL LV Bunn Vol 3D 209 mL LV Sys Vol 3D 104 mL LV Mass 3D 211 g IVSD 1.4 (A) 0.6 - 1.0 cm LVIDD 5.8 4.2 - 5.8 cm LVIDS 4.3 (A) 2.5 - 4.0 cm LVOT Diameter 2.0 cm LVOT Mean Carlito 0.7 m/s LVOT Mean Grad 2 mmHg LVOT Peak VTI 18.4 cm LVOT Peak Carlito 1.0 m/s LVOT Peak Gradient 4 mmHg LVPWD 1.2 (A) 0.6 - 1.0 cm MV E' Tissue Velocity Lateral 9 cm/s MV E' Tissue Velocity Septal 4 cm/s GLS -14.8 % LVOT Area 3.1 cm2 E Wave Deceleration Time 214 119 - 242 ms MV Peak A Carlito 0.59 m/s MV Peak E Carlito 0.91 m/s RV Diastolic Basal Dimension 4.2 (A) 2.5 - 4.1 cm RV Diastolic Length 9.2 (A) 5.9 - 8.3 cm RV Diastolic Mid Dimension 2.7 1.9 - 3.5 cm RV S' 17 cm/s TR Peak Velocity 2.97 m/s TR Peak Gradient 35 mmHg E/E' Ratio Septal 23 E/E' Ratio Averaged 16 LVOT Stroke Index 27 mL/m2 LA Dimension Index 2D 2.2 cm/m2 Relative Wall Thickness ratio 0.41 LV Mass Index 3D 97 g/m2 LVOT:AV VTI Index 0.57 FS 26 % LV Mass 2D 331 g Ascending Aorta Index 1.47 cm/m2 LVOT flow 220 mL/s YASSINE Index (VTI) 0.83 cm2/m2 YASSINE Index (Pk Carlito) 0.78 cm2/m2 LVIDD Index 2.67 cm/m2 LVIDS Index 1.98 cm/m2 Aortic Root Index 1.43 cm/m2 LV EDV Index (3D) 96 mL/m2 LV ESV Index (3D) 48 mL/m2 AV Velocity Ratio 0.53 E/A Ratio 1.5 E/E' Ratio Lateral 10 LA Volume Index (BP) 29 mL/m2 LV Mass Index 2D 153 g/m2 LA/Ao Ratio 1.5 BSA 2.22 m2 Diagnostic Studies: Independently reviewed x-rays of the left foot from 11/08/2023 that show fracture and bony irregularity about the distal phalanx of the left great toe concerning for fracture versus osteomyelitis. Independently reviewed an MRI of the left foot from 11/09/2023 that show edema in the proximal phalanx as well as fracture and signal change in the distal phalanx concerning for osteomyelitis of the left great toe Impression and Plan: This is a 78 y.o. male with left great toe osteomyelitis. This is a new problem with uncertain prognosis. I do long discussion with the patient about treatment options including nonoperative and operative management. I explained a poor expected prognosis with nonoperative management. Made a recommendation for surgery in the form of a left great toe amputation through the metatarsal phalangeal joint. Wediscussed risk of surgery including but not limited to continued infection damage to surrounding neurovascular structures change in his gait chronic pain deformity and disability as well as need for reoperation or persistent infection. We discussed medical risks as well. Ultimately he wished to proceed. Pain control N.p.o. for surgical management later on today. Please feel free to call me with questions or to coordinate care. Milan Castro M.D. [phone] * ZAIN Montreroso - 11/09/2023 2:53 PM EDTAssociated Order(s): IP CONSULT TO CARDIOLOGY Images from the original note were not included. CARDIOLOGY CONSULTATION NOTE Impression: 78-year-old gentleman presented for evaluation of worsening left great toe wound in addition to peripheral edema and worsening shortness of breath. Found to have suspected left great toe distal phalanx fracture and concern for osteomyelitis. We have been asked to see the patient for preoperative valuation -Preoperative evaluation. Patient tentatively scheduled for I&D tomorrow 11/02/2023 with orthopedic surgery for possible osteomyelitis left great toe -Congestive heart failure; unspecified. Sounds like he has a history of ischemic cardiomyopathy butthere is no recent echo for review. BNP mildly elevated. He has biventricular features on exam and cannot exclude a degree of pulmonary hypertension given his lower extreme edema and mild abdominal distention and history of COPD. -Elevated troponin. Mild, adynamic troponin. Not conclusive for ACS. He denies any chest discomfort. Most likely demand ischemia. No acute ECG changes -Atherosclerotic coronary disease with remote IN and PCI/stenting to an unknown vessel over 10 years ago in [place]. No detailed records available -Peripheral arterial disease with previous lower extremity revascularization -COPD with prior history of tobacco use, quitting in 2009 -Essential hypertension -Hyperlipidemia Recommendations: -Echocardiogram with Doppler has been ordered for review. Findings will guide further recommendations. -For reasons unclear, he is really not on any appropriate guideline directed medical therapy for his history of CHF other than furosemide and Aldactone. He was on carvedilol but discontinued. Will reassess medications once echo reviewed. -He did respond to IV Lasix and his lower extremity edema has improved. He is actually receiving gentle IV hydration due to elevated lactate. ZAIN Ruiz 11/09/23 3:04 PM EDT [facility] Thank you for this consultation. If you have any questions, please feel free to call. First Call Mon-Fri [phone]: [facility] [phone] [facility] [phone] [facility] [phone] After hours/Weekends: [phone] For listed Attendings On-Call at each site click here Patient Name : Yoni Villalpando 1945 Date of Consultation: 11/09/23 Reason for Consultation: Pre-op Requesting Physician: Alba Martin NP Primary Armed Security Officer: Rosetta History of Present Illness: Mr. Yoni Villalpando is a 78 y.o. male who presented to the emergency department with lower extremity swelling and worsening left great toe wound. He resides in [place] and just recently travel to [place] [facility]. He does follow with wound care for right lower extremity foot ulcer but had been selftreating his left toe wound. He had completed a course of antibiotics. Ridging studies have been completed and he has been seen by orthopedic surgery for evaluation of suspected left great toe distalphalanx fracture and concern for osteomyelitis. There is mention of possible I&D tomorrow 11/10/2023. We have been asked to see the patient for preoperative evaluation. He does have a history of coronary disease with remote IN in 2009, hospitalized in [place], with PCI and stenting to an unknown vessel. He does not provide any details. At that time he was treated for CHF and he recalls a history of left ventricular systolic function but has not had any cardiac testing or regular follow-up for a number of years. 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 He additionally has a history of peripheral arterial disease with previous lower extremity DOMINATRIX and stenting by vascular surgery. I reviewed his medication list. He was previously on carvedilol which has been discontinued. He is on amlodipine for treatment of hypertension. He is on Lasix and Aldactone and remains compliant with diuretic therapy. He has denied any rest or exertional chest discomfort. Comorbidities include prior history of tobacco use, COPD, hypertension, hyperlipidemia and remote history of DVT. He does report chronic exertional dyspnea attributed to his COPD. Recently, he has noted worsening bilateral lower extremity edema and increased abdominal distention as well as orthopnea. He did receive a dose of IV Lasix 40 mg overnight. His lower extremity edema has apparently improved. Cardiac studies: Telemetry personally reviewed which shows: Normal sinus rhythm with PACs and PVCs ECG 11/09/2023: Normal sinus rhythm with PVCs and PACs. Voltage criteria for LVH. Age-indeterminate inferior wall infarction. Cannot exclude age-indeterminate anterior wall infarction. REVIEW OF SYSTEMS CARDIAC: Positive for shortness of breath/exertional dyspnea and peripheral edema. Negative for chest pain or palpitations. GENERAL: Negative for nausea, vomiting, fevers, chills, or weight loss. NEUROLOGIC: Negative for blurry vision, double vision, facial asymmetry, dysphagia, dysarthria, hemiparesis, hemisensory deficits, vertigo. HEENT: Negative for head trauma, neck trauma, neck stiffness, photophobia, phonophobia, sinusitis, rhinitis. PULMONARY: Positive for shortness of breath and occasional productive cough. Negative for hemoptysis. GASTROINTESTINAL: Positive for increased abdominal distention. Negative for abdominal pain, nausea,vomiting, bright red blood per rectum, melena. GENITOURINARY: Negative for dysuria, hematuria or urinary incontinence. INTEGUMENTARY: Negative for rashes, cuts, insect bites. RHEUMATOLOGIC: Negative for joint pains, photosensitive rashes. HEMATOLOGIC: Negative for abnormal bruising, frequent infections or bleeding. Past Medical History: Diagnosis Date Congestive heart failure (CHF) (CMS/HCC) COPD (chronic obstructive pulmonary disease) (CMS/HCC) Coronary artery disease Hyperlipidemia Hypertension Myocardial infarction (CMS/HCC) Peripheral arterial disease with history of revascularization (CMS/HCC) Vocal cord cancer (CMS/HCC) Past Surgical History: Procedure Laterality Date CARDIAC CATHETERIZATION CORONARY STENT PLACEMENT STENT PERIPHERAL VASCULAR THROAT SURGERY Social History Socioeconomic History Marital status: Spouse name: Not on file Number of children: Not on file Years of education: Not on file Highest education level: Not on file Occupational History Not on file Tobacco Use Smoking status: Former Types: Cigarettes Smokeless tobacco: Never Substance and Sexual Activity Alcohol use: Not on file Drug use: Not on file Sexual activity: Not on file Other Topics Concern Not on file Social History Narrative Not on file Family History Problem Relation Name Age of Onset Lung cancer Brother Prior to Admission medications Medication Sig Start Date End Date Taking? Authorizing Provider albuterol HFA (PROAIR HFA ; PROVENTIL HFA ; VENTOLIN HFA) 90 mcg/actuation inhaler Inhale 2 puffs by mouth every 6 (six) hours if needed for wheezing. Yes Historical Provider, allopurinoL (ZYLOPRIM) 100 mg tablet Take 1 tablet (100 mg total) by mouth 1 (one) time each day. Yes Historical Provider, amLODIPine (NORVASC) 5 mg tablet Take 1 tablet (5 mg total) by mouth 1 (one) time each day. Yes Historical Provider, aspirin 81 mg EC tablet Take 1 tablet (81 mg total) by mouth 1 (one) time each day. Yes Historical Provider, cephalexin (KEFLEX) 500 mg capsule Take 1 capsule (500 mg total) by mouth every 6 (six) hours. Yes Historical Provider, cholecalciferol (VITAMIN D-3) 25 mcg (1,000 unit) tablet Take 1 tablet (1,000 Units total) by mouth1 (one) time each day. Yes Historical Provider, ferrous sulfate (High Potency Iron) 27 mg iron tablet Take 27 mg by mouth 1 (one) time each day. Yes Historical Provider, finasteride (PROSCAR) 5 mg tablet Take 1 tablet (5 mg total) by mouth 1 (one) time each day. Yes Historical Provider, fluticasone propion-salmeteroL (ADVAIR DISKUS) 100-50 mcg/dose diskus inhaler Inhale 1 puff by mouth 2 (two) times a day. Rinse mouth with water after use to reduce aftertaste and incidence of candidiasis. Do not swallow. Yes Historical Provider, furosemide (LASIX) 40 mg tablet Take 1 tablet (40 mg total) by mouth 1 (one) time each day. Yes Historical Provider, pantoprazole (PROTONIX) 40 mg EC tablet Take 1 tablet (40 mg total) by mouth 1 (one) time each day before breakfast. Do not crush, chew, or split. Yes Historical Provider, phenylephrine (SUDAFED PE) 10 mg tablet Take 1 tablet (10 mg total) by mouth 2 (two) times a day ifneeded for congestion. Yes Historical Provider, potassium chloride (KLOR-CON) 10 mEq CR tablet Take 1 tablet (10 mEq total) by mouth 2 (two) times a day. Yes Historical Provider, rOPINIRole (REQUIP) 2 mg tablet Take 1 tablet (2 mg total) by mouth 2 (two) times a day. Yes Historical Provider, sour hernandez extract (Tart Hernandez Extract) 1,000 mg capsule Take 1,000 mg by mouth 1 (one) time eachday. Yes Historical Provider, spironolactone (ALDACTONE) 25 mg tablet Take 1 tablet (25 mg total) by mouth 1 (one) time each day.Yes Historical Provider, tamsulosin (FLOMAX) 0.4 mg 24 hr capsule Take 1 capsule (0.4 mg total) by mouth 1 (one) time each day with breakfast. Capsules should be taken 30 minutes following the same meal each day. Yes Historical Provider, tiotropium (SPIRIVA) 18 mcg per inhalation capsule Place 1 capsule (18 mcg total) into inhaler and inhale 1 (one) time each day. Yes Historical Provider, UNABLE TO FIND Take 450 mg by mouth 1 (one) time each day. Med Name: Apple Cider Vinegar Yes Historical Provider, UNABLE TO FIND Take 1 tablet by mouth 1 (one) time each day. Med Name: The Prostate Formula Yes Historical Provider, oxyCODONE (ROXICODONE) 5 mg immediate release tablet Take 1 tablet (5 mg total) by mouth every 4 (four) hours if needed (moderate pain or when therapies for mild pain were not effective). Max Daily Amount: 30 mg 01/09/23 Ken Donato DO valsartan (DIOVAN) 320 mg tablet Take 1 tablet (320 mg total) by mouth 1 (one) time each day. Patient not taking: Reported on 11/09/2023 01/05/23 Morgan Grover MD carvediloL (COREG) 3.125 mg tablet Take 1 tablet (3.125 mg total) by mouth 2 (two) times a day withmeals. 11/09/23 Historical Provider, dutasteride (AVODART) 0.5 mg capsule Take 1 capsule (0.5 mg total) by mouth 1 (one) time each day. 11/09/23 Historical Provider, No Known Allergies Physical Exam: Patient Vitals for the past 24 hrs: BP Temp Temp src Pulse Resp SpO2 Height Weight 11/09/23 1040 (!) 145/82 -- -- 81 17 92 % -- -- 11/09/23 0939 (!) 174/83 -- -- 86 20 96 % -- -- 11/09/23 0619 (!) 158/90 -- -- 63 25 94 % -- -- 11/09/23 0534 (!) 158/86 -- -- 65 16 93 % -- -- 11/09/23 0400 -- -- -- (!) 33 -- 95 % -- -- 11/08/23 2330 -- -- -- 68 18 94 % -- -- 11/08/23 2106 (!) 169/78 36.7 C (98.1 F) Oral 68 18 94 % 1.778 m (70) 99.8 kg (220 lb) Intake/Output Summary (Last 24 hours) at 11/09/2023 1504 Last data filed at 11/09/2023 0300 Gross per 24 hour Intake 100 ml Output -- Net 100 ml Wt Readings from Last 3 Encounters: 11/08/23 99.8 kg (220 lb) 11/09/23 99.8 kg (220 lb) 01/07/23 96.1 kg (211 lb 12.8 oz) Body mass index is 31.57 kg/m . General appearance/constitutional: The patient is in no distress. EYES: No xanthelasma. Normal conjunctiva. Ears, Nose, Mouth and Throat: Normocephalic. Limited dentition examination. Voice is hoarse. Neck: No neck tenderness, masses or nodules. Respiratory/chest: Diminished breath sounds anteriorly. No wheezes or rales. Heart: Regular rate and rhythm. S1, S2 normal. Some extrasystoles. No obvious gallop. No murmurs. There is no jugular venous distension noted. Abdomen/gastrointestinal: Soft, non-tender. Bowel sounds normal. Extremities: There is 1+ pretibial peripheral lower extremity edema bilaterally. Chronic venous stasis discoloration. Musculoskeletal: Normal range of motion in the arms. Back: Not assessed. Pulses: Bilateral radial pulses are 2+ and symmetric. Skin: Skin color, texture normal. No rashes or lesions noted by limited skin examination Neurologic/psychiatric: The patient is oriented to time, place and person. Mood, memory, affect andjudgment are appropriate for this presentation Labs: Lab Results Component Value Date WBC 4.0 (L) 11/08/2023 HGB 12.9 (L) 11/08/2023 HCT 39.4 11/08/2023 MCV 92.9 11/08/2023 PLT 139 (L) 11/08/2023 Lab Results Component Value Date GLUCOSE 154 (H) 11/09/2023 CALCIUM 8.3 (L) 11/09/2023 NA 142 11/09/2023 K 3.9 11/09/2023 CO2 25 11/09/2023 CL 107 11/09/2023 BUN 16 11/09/2023 CREATININE 1.22 11/09/2023 Lab Results Component Value Date HSTROPI 35 (H) 11/09/2023 No results found for: TSH No results found for: ALT, AST, GGT, ALKPHOS, BILITOT Lab Results Component Value Date INR 0.9 11/09/2023 Associated attestation - Nallely Benavidez - 11/09/2023 3:52 PM EDT Cardiology Attending Attestation. I saw and examined this patient, and discussed with ZAIN Monterroso. I have personally performed a [id number] evaluation on this patient. I have reviewed the care plan. I was physically present for the Evaluation and Management service provided. I agree with the note and plan which I have reviewed and edited where appropriate. I have confirmed the physical exam findings and made appropriate changes. Physical Exam: General: A+Ox3, in NAD Cardiovascular: regular rate, normal S1/S2, no m/r/g. No significant JVD. Lungs: bibasilar crackles Extremities: warm and well perfused. 1+ bilateral LE edema Skin: no rashes. Normal skin texture. Eyes: No xanthelasma. Normal conjunctiva. No jaundice. HENT: Normocephalic/atraumatic. Oral mucosa moist. Neck: Trachea midline. Supple. No obvious thyromegally. Musculoskeletal. Normal range of motion in the arms. Gait was not assessed. No joint inflammation appreciated. Neuro: grossly intact I was physically present for the garza portions of the history, physical and service provided. Assessment: Mr. Villalpando is a 78-year-old man with coronary artery disease, COPD, peripheral artery disease, hypertension, hyperlipidemia, vocal cord cancer admitted with osteomyelitis of his left great toe. We are consulted for preoperative cardiovascular examination. 1. Preoperative cardiovascular examination -His revised cardiac risk index is significant for ischemic cardiomyopathy and possible congestive heart failure which places him at increased risk of major adverse cardiac events. Echocardiogram hasbeen ordered which we will review to better assess his systolic function. Given the low risk natureof the surgery, I do not think there is any additional testing that we will need to be done. 2. Coronary artery disease -History of PCI over 10 years ago. Will try to obtain records. 3. Heart failure-likely diastolic -Will review echocardiogram when complete 4. Peripheral arterial disease 5. Osteomyelitis 6. COPD 7. Hypertension 8. Hyperlipidemia Plan: -Echocardiogram. -For now continue Aldactone. I anticipate he will need addition of beta-emory therapy will reviewhis echocardiogram first. -Oral Lasix is on hold as he has received IV Lasix. We will continue to follow. Nallely Benavidez MD, [facility] Cardiology * ZAIN Duarte - 11/09/2023 7:03 AM EDTAssociated Order(s): IP CONSULT TO ORTHOPEDIC SURGERY ORTHOPEDIC SURGERY CONSULTATION NOTE CC: Left great toe wound Chief Complaint Patient presents with Toe Injury Left foot pain, patient skinned his left foot great toe. Was given cephalexin for injury. Patient with bilateral leg swelling and discoloration. Patient with CHF. Attending Physician: Milan Castro MD Date of Service: 11/09/2023 7:04 AM EDT Reason for Consultation: X-ray findings with left great toe distal phalanx fracture as well as concern for osteomyelitis Requesting Service: Medicine Subjective Yoni Villalpando is a 78 y.o. male with a past medical history of COPD, CHF, CAD, GERD, hypertension, and gout who presented to the [facility] emergency department for evaluation of a left great toe wound. X-rays of the left foot were obtained which demonstrates a left great toe distal phalanx fracture as well as cortical changes concerning for osteomyelitis. Orthopedics was consulted for further evaluation and management. I saw and evaluated the patient at bedside. He states that approximately 1 month ago he was wearingshoes when his foot got sweaty and the skin at the distal aspect of his toe peeled off. He states he has been dealing with this left great toe wound for approximately 1 month. He notes 1 instance approximately 1 week ago when he states his stepped on his left foot, but he denies any other injuries or trauma. He states his peripheral neuropathy at baseline and has difficulty feeling his toes.He denies any pain in his left foot or toes. In regards to his wound, he has noted a pinkish clear drainage. He denies fevers or chills. He states he was seen at an outside facility approximately 10 days ago when he was placed on antibiotics. He cannot remember the name of the antibiotics. He states when he came to the emergency department today he still had approximately 15 pills left. He is an unassisted community ambulator at baseline. He is visiting family in [place]. He resides in [place] andis established with a wound care team that he sees once a week for a right foot ulcer that is currently stable. He states he will be returning to [place] the first week of November. He is currently afebrile. White blood cell count 4.0. CRP 2.3. ESR 39. Of note, he also has a rightlateral plantar foot wound that he follows with the wound care team in [place] every week for. No drainage or redness noted. Review of Systems: Musculoskeletal system reviewed, pertinent positives and negatives per HPI. Denies fevers or chills. Medical History: COPD, CHF, CAD, GERD, hypertension, and gout Allergies: Patient has no known allergies. Surgical History: History reviewed. No pertinent surgical history. Family History: Family History Problem Relation Name Age of Onset Lung cancer Brother Social History: Smoking: Patient denies use. Patient states he quit smoking in 2009. Alcohol: Patient denies use. Drug use: Patient denies use. Living Situation: Patient is an unassisted community ambulator at baseline. He is visiting family in [place]. He currently resides in [place] and will be returning the first week of November. Objective Visit Vitals BP (!) 158/90 (BP Location: Left arm;Upper, Patient Position: Lying) Pulse 63 Temp 36.7 C (98.1 F) (Oral) Resp 25 Ht 1.778 m (70) Wt 99.8 kg (220 lb) SpO2 94% BMI 31.57 kg/m Smoking Status Former BSA 2.17 m PHYSICAL EXAM: General: Awake and alert; oriented to person, place, and time. Lying in bed. No acute distress. Nonseptic appearing. Head: Normocephalic. Atraumatic. Neck: Trachea midline. Phonation normal. Cardiac: Rate normal. Respiratory: Unlabored breathing. Symmetric rise and fall of chest bilaterally. Left lower extremity: There is an approximately 1.5 cm x 1.5 cm circular wound to the plantar distal aspect of the left great toe. No other wounds noted about the foot. The wound base is pink. Centrally there is a yellow area that does probe approximately half a centimeter deep. No drainage noted. No surrounding erythema noted. Swelling noted throughout the left great toe. Denies tenderness with palpation about the toes, foot, ankle, or proximally up the leg. Actively flexes/extends hip and knee and dorsiflex/plantarflex his ankle without pain. Fires FHL/EHL, and motors lesser toes well. Sensation intact, but diminished throughout the foot in the superficial peroneal and tibial nerve distributions. He is unable to feel me touching in the deep peroneal nerve distribution. Unable to palpateDP or PT pulse. DP and PT pulse dopplerable. Right lower extremity: There is an approximately 1.5 cm x 1.5 cm circular wound over the lateral aspect of the plantar midfoot. No surrounding erythema noted. No drainage noted. No pain throughout the right foot, ankle, or proximal about the leg. Active flexion/extension of the hip and knee and dors iflexion/plantarflexion of the ankle without pain. Fires FHL/EHL, and motors lesser toes well. Sensation intact, but diminished throughout the foot. Palpable DP pulse. Unable to palpate PT pulse. Dopplerable PT pulse. LABS: Admission on 11/08/2023 Component Date Value Sodium 11/08/2023 140 Potassium 11/08/2023 4.2 Chloride 11/08/2023 110 (H) CO2 11/08/2023 23 Anion Gap 11/08/2023 7 Glucose 11/08/2023 144 (H) BUN 11/08/2023 16 Creatinine 11/08/2023 1.19 eGFR 11/08/2023 63 BUN/Creatinine Ratio 11/08/2023 13.4 Calcium 11/08/2023 8.0 (L) WBC 11/08/2023 4.0 (L) RBC 11/08/2023 4.24 (L) Hemoglobin 11/08/2023 12.9 (L) Hematocrit 11/08/2023 39.4 MCV 11/08/2023 92.9 MCH 11/08/2023 30.4 MCHC 11/08/2023 32.7 RDW 11/08/2023 13.8 Platelets 11/08/2023 139 (L) MPV 11/08/2023 11.0 Immature Platelet Fracti* 11/08/2023 4.0 Neutrophils Relative 11/08/2023 54.9 Lymphocytes Relative 11/08/2023 33.9 Monocytes Relative 11/08/2023 9.4 Eosinophils Relative 11/08/2023 1.0 Basophils Relative 11/08/2023 0.3 Immature Granulocytes Re* 11/08/2023 0.5 Neutrophils Absolute 11/08/2023 2.17 Lymphocytes Absolute 11/08/2023 1.34 Monocytes Absolute 11/08/2023 0.37 Eosinophils Absolute 11/08/2023 0.04 Basophils Absolute 11/08/2023 0.01 Immature Granulocytes Ab* 11/08/2023 0.02 BNP 11/08/2023 316 (H) High Sensitivity Troponi* 11/08/2023 44 (H) Sed Rate 11/08/2023 39 (H) C-Reactive Protein 11/08/2023 2.3 (H) Lactate 11/08/2023 2.2 (H) Ventricular Rate ECG 11/08/2023 66 Atrial Rate 11/08/2023 66 P-R Interval 11/08/2023 154 QRS Duration 11/08/2023 112 Q-T Interval 11/08/2023 436 QTc 11/08/2023 457 P Wave [place] 11/08/2023 69 R [place] 11/08/2023 -33 T [place] 11/08/2023 6 ECG Interpretation 11/08/2023 Value:Normal sinus rhythm Left axis deviation Minimal voltage criteria for LVH, may be normal variant ( [place] product ) Inferior infarction , age undetermined Abnormal ECG Confirmed by Reilly NI, Morgan ([id number]), online content editor Yen Jeffery ([id number]) on 11/09/2023 6:21:32 AM Sodium 11/09/2023 142 Potassium 11/09/2023 3.9 Chloride 11/09/2023 107 CO2 11/09/2023 25 Anion Gap 11/09/2023 10 Glucose 11/09/2023 154 (H) BUN 11/09/2023 16 Creatinine 11/09/2023 1.22 eGFR 11/09/2023 61 BUN/Creatinine Ratio 11/09/2023 13.1 Calcium 11/09/2023 8.3 (L) High Sensitivity Troponi* 11/09/2023 45 (H) Lactate 11/09/2023 2.0 aPTT 11/09/2023 26.5 Protime 11/09/2023 13.0 INR 11/09/2023 0.9 ABO Group 11/09/2023 A Rh Type 11/09/2023 Negative Antibody Screen 11/09/2023 Negative IMAGING: X-ray of the left foot demonstrates an intra-articular fracture of the base of the left distal phalanx. There are cortical erosive changes at the tip of the left distal phalanx concerning for osteomyelitis. MRI of the left foot with and without contrast ordered and pending. Assessment: 78-year-old male with a left great toe wound. Plan of Care: -Patient discussed with Dr. Castro, who will see and evaluate patient. -N.p.o. at midnight for possible OR tomorrow. -Preoperative studies ordered -MRI left foot with and without contrast ordered and pending. -Noninvasive vascular studies ordered and pending. -Appreciate preoperative optimization per medical team. -Wound care team has been consulted, appreciate assistance. -Patient to remain heel weightbearing weightbearing about the left lower extremity. -Pain management and DVT prophylaxis per medical team -Disposition: Pending MRI results and discussion with the patient about treatment options since he resides in [place]. Please see the orthopedic attending, Dr. Castro's note for further updates to plan of care. The patient was discussed with the orthopedic attending occupational psychologist, Milan Castro MD, who is in agreement with plan of care at this time. Meghan Shane PA-C Orthopaedic Trauma [phone] documented in this encounterAmerican Academic Health [id number] Consult note* Emma Vasquez, PT - 11/11/2023 10:48 AM EDT Patient: oYni Villalpando Age: 78 y.o. Sex: male Acute congestive heart failure, unspecified heart failure type ([facility]/HCC) [facility] Physical Therapy Evaluation Multi-Disciplinary Rounding Report Ambulation: Walking Assistance: Standby assistance Walking Deficit: Supervision/safety awareness Device: Rolling walker Distance Ambulated (ft): 150 PLOF: Level of Guion: Independent with mobility and functional transfers Lives With: Spouse (pt lives in [place] but is up visiting son in [place], information is for son's house) Type of Home: House Home Adaptive Equipment: Walker - rolling, Cane, Wheelchair-manual, Crutches (but these devices arein [place]) Home Layout: Two level, Full bath main level, Able to live on main level with bedroom/bathroom Home Access: Stairs to enter with rails Home Living Comments: pt home setup info is pt son's house DME Needs: 2 wheeled walker (his is currently in [place]) PT Discharge Recommendation: Home independent Reason for current recommendation based on assessment: no acute P.T. needs identified SUBJECTIVE RN approves session. Pt in chair upon arrival, agreeable to participate. Past Medical History: Diagnosis Date Congestive heart failure (CHF) ([facility]) COPD (chronic obstructive pulmonary disease) ([facility]) Coronary artery disease Hyperlipidemia Hypertension Myocardial infarction ([facility]/HCC) Peripheral arterial disease with history of revascularization ([facility]) Vocal cord cancer ([facility]) Past Surgical History: Procedure Laterality Date CARDIAC CATHETERIZATION CORONARY STENT PLACEMENT HIP ARTHROPLASTY Left 2017 STENT PERIPHERAL VASCULAR THROAT SURGERY OBJECTIVE Precautions: Precautions Medical Precautions: Fall Risk Safety Interventions: Call peña within reach, Gait belt LLE Weight Bearing Status: Heel Touch (pt already wearing offloading shoe) Vitals/Pain: Pain Assessment Pain Assessment: No/denies pain Cognition: Cognition Overall Cognitive Status: Within Functional Limits Arousal/Alertness: Appropriate responses to stimuli Home Living: Home Living Lives With: Spouse (pt lives in [place] but is up visiting son in [place], information is for son's house) Home Adaptive Equipment: Walker - rolling, Cane, Wheelchair-manual, Crutches (but these devices arein [place]) Home Layout: Two level, Full bath main level, Able to live on main level with bedroom/bathroom Home Access: Stairs to enter with rails Entrance Stairs-Number of Steps: 2 Prior Function: Prior Function Level of Guion: Independent with mobility and functional transfers Prior Device Use: No prior device use General Assessments: Functional Assessments: Bed Mobility Bed Mobility Comments: pt in chair pre/post session Transfers Sit to Stand Assistance: Standby assistance Sit to Stand Deficit: Supervision/safety awareness Ambulation Walking Assistance: Standby assistance Walking Deficit: Supervision/safety awareness Device: Rolling walker Distance Ambulated (ft): 150 Comments: cues for short strides Stairs 1 step (curb): Assistance: Standby assistance 1 step (curb): Deficit: Verbal cueing, Supervision/safety awareness Rails: Left Device: No device Number of Stairs: 2 Stairs Comments: son present for stair education Extremity Assessments: RLE Assessment RLE Assessment: Within Functional Limits LLE Assessment LLE Assessment: Within Functional Limits Additional Assessments: Additional Assessments/Tests Additional Assessment/Test #1: 6 clicks Procedure/Treatment: Other Activities: ASSESSMENT P.T. eval complete. Pt is POD 1 s/p L great toe amputation. Orders are for heel WB, he has off loading shoe donned already. He ambulated 150' with walker, navigated 2 stairs. Pt tolerated treatment without complications . P.T. signing off , pt safe with functional mobility with no acute goals identified. Pt was left in chair with call light. PT Assessment Evaluation/Treatment Tolerance: Patient tolerated treatment well Medical Staff Made Aware: Yes PLAN Acute Care Plan: PT Plan: No skilled PT PT Discharge Recommendations: Home independent Equipment Recommended: 2 wheeled walker (his is currently in [place]) Encounter Problems Encounter Problems (Active) There are no active problems. Encounter Problems (Resolved) There are no resolved problems. EDUCATION Education Documentation Mobility Training, taught by Emma Vasquez PT at 11/11/2023 11:23 AM. Learner: Patient Readiness: Acceptance Method: Explanation Response: Verbalizes Understanding Education Comments No comments found. Emma Vasquez, PT Host [id number] Consult note* Lien Pierre, OT - 11/10/2023 4:09 PM EDT Patient: Yoni Villalpando Age: 78 y.o. Sex: male Acute congestive heart failure, unspecified heart failure type (CMS/HCC) [facility] Occupational Therapy Evaluation Multi-Disciplinary Rounding Report Ambulation: Functional Mobility Walking Assistance: Supervision Device: Rolling walker Distance Ambulated (ft): 60 PLOF: Level of Guion: Independent with mobility and functional transfers Lives With: (pt typically lives with spouse in [place] however pt visiting son in [place] currently.) Type of Home: House Home Adaptive Equipment: (pt reports all dme in [place].) Bathroom Equipment: Grab bars in shower Home Layout: Two level, Full bath main level, Able to live on main level with bedroom/bathroom Home Access: Stairs to enter with rails Home Living Comments: pt home setup info is pt son's house DME Needs: Tub transfer bench (front wheeled walker) OT Discharge Recommendation: Home independent Reason for current recommendation: no needs SUBJECTIVE Past Medical History: Diagnosis Date Congestive heart failure (CHF) (CMS/HCC) COPD (chronic obstructive pulmonary disease) (CMS/HCC) Coronary artery disease Hyperlipidemia Hypertension Myocardial infarction (CMS/HCC) Peripheral arterial disease with history of revascularization (CMS/HCC) Vocal cord cancer (CMS/HCC) Past Surgical History: Procedure Laterality Date CARDIAC CATHETERIZATION CORONARY STENT PLACEMENT HIP ARTHROPLASTY Left 2017 STENT PERIPHERAL VASCULAR THROAT SURGERY OBJECTIVE Precautions: Precautions Medical Precautions: Fall Risk Safety Interventions: Call peña within reach, ID band on, Gait belt, Chair alarm, Bed alarm LLE Weight Bearing Status: Heel Touch (in toe-offloading shoe) Vitals/Pain: Oxygen Therapy Oxygen Therapy: None (Room air) Pain Assessment Pain Assessment: No/denies pain Pain Score: 0 - No pain Home Living: Home Living Type of Home: House Lives With: (pt typically lives with spouse in [place] however pt visiting son in [place] currently.) Home Adaptive Equipment: (pt reports all dme in [place].) Home Living Comments: pt home setup info is pt son's house Home Layout: Two level, Full bath main level, Able to live on main level with bedroom/bathroom Home Access: Stairs to enter with rails Entrance Stairs-Rails: Rail on the right going up Entrance Stairs-Number of Steps: 2 Bathroom Shower/Tub: Tub/shower unit Bathroom Toilet: Standard Bathroom Equipment: Grab bars in shower Prior Function: Prior Function Level of Guion: Independent with mobility and functional transfers Ambulation Status: Community ambulator, Household ambulator Indoor Mobility Assistance: Independent Prior Device Use: No prior device use Do you drive?: Yes Vocational: Retired Which is your dominant hand?: Right Prior ADL/IADL History: ADL/IADL History ADL Assistance (Self Care): Independent Homemaking Assistance (Functional Cognition): Independent General Assessments: ADL Grooming Assistance: Supervision LE Dressing Assistance: Modified independent Toileting Assistance: Modified independent Bed Mobility Lying to Sitting Assistance: Modified independent Functional Transfers Sit to Stand Assistance: Supervision Chair/Bed to Chair/Bed Assistance: Supervision Toilet Transfer Assistance: Supervision Functional Mobility Walking Assistance: Supervision Device: Rolling walker Distance Ambulated (ft): 60 Cognitive Status: Cognition Orientation Level: Oriented X4 Sensation Light Touch: Partial deficits in the LLE (pt reports numbness) Extremity Assessments: Hand Function Gross Grasp: Functional Coordination Coordination: Functional RUE Assessment RUE Assessment: Within Functional Limits LUE Assessment LUE Assessment: Within Functional Limits Procedure/Treatment: Therapeutic Activity Therapeutic Activity Time Entry: 8 Therapeutic Activity 1: pt educated on heel weight bearing with demonstration and required verbal cues for maintaining during functional mobility ASSESSMENT O.T. eval completed. Pt status post L great toe amputation. Pt educated on heel weight bearing L L.E. and pt provided with toe-offloading shoe. Pt alert and oriented times 4. Pt within functional limits bilateral UE strength and ROM. Pt supervision to modified independent level with ADL tasks with front wheeled walker. Pt reports no questions or concerns with ADLs for home going. Pt seated in chair at end of session with needs in reach and RN notified with chair alarm set and L L.E. elevated onpillows and stool. O.T. recommend pt discharge with no further O.T. services. O.T. eval only due topt independent. AM-PAC Inpatient Daily Activity Short Form Scoring Form: Unable: 1 A Lot: 2 A Little: 3 None: 4 How much help from another person does the patient currently need? Putting on and taking off regular lower body clothing? [] [] [] [x] Bathing (including washing, rinsing, drying)? [] [] [x] [] Toileting, which includes using toilet, bedpan, or urinal? [] [] [] [x] Putting on and taking off regular upper body clothing? [] [] [] [x] Personal grooming such as brushing teeth? [] [] [x] [] Eating meals? [] [] [] [x] Score: OT Assessment OT Assessment Results: Decreased ADL status, Decreased functional mobility Prognosis: Good Evaluation/Treatment Tolerance: Patient tolerated treatment well Medical Staff Made Aware: Yes Comments: RN notified PLAN Acute Care Plan: Treatment Interventions: Patient/family training, Equipment evaluation/education, ADL retraining, Functional transfer training OT Plan: No skilled OT No Skilled OT: No acute OT goals identified OT - Evaluation Status: Complete OT Discharge Recommendations: Home independent Equipment Recommended: Tub transfer bench (front wheeled walker) Encounter Problems Encounter Problems (Active) There are no active problems. Encounter Problems (Resolved) There are no resolved problems. EDUCATION Education Documentation No documentation found. Education Comments No comments found. [facility] Health [id number] Nurse Note* Lona Nobles RN - 11/10/2023 2:31 PM EDT Family updated [facility] [id number] Procedure note* Lona Nobles RN - 11/10/2023 2:31 PM EDT Family updated * Milan Castro MD - 11/10/2023 1:02 PM EDT [place] [facility] [place] Patient Name: Yoni Villalpando Patient : 1945 Patient Date of surgery: 11/10/23 Surgeon: Milan Castro MD Towerman: Sammie Daly, PGY 4 Preoperative Diagnosis: Left great toe osteomyelitis involving the distal phalanx and proximal aspect of the proximal phalanx Postoperative Diagnosis: Same as preoperative diagnosis Surgical Procedure: Left great toe amputation through the proximal phalange Operative Findings: Infected appearing bone of the distal phalanx and very distal aspect of the proximal phalanx of theleft great toe Anesthesia: Duc Mitchell MD general Blood Loss: Less than 50 cc Complications: None. Tourniquet Time: * Missing tourniquet times found for documented tourniquets in lo * Disposition: PACU Indication for the procedure: The patient is a 78 y.o. year old male with left great toe osteomyelitis. We discussed treatment options including nonoperative and operative management. Explained a poor expected prognosis with nonoperative management. I made a recommendation for surgery in the form of the above surgery. We discussed risk of surgery including but not limited to bleeding, continued infection, damage surrounding neurovascular structures, chronic pain deformity and disability of the limb, need for reoperation, aswell as risk of general anesthesia including but not limited to myocardial infarction, respiratory failure, DVT, PE, stroke, and . Ultimately verbal and written consent for the above-stated surgery was obtained. Description of the procedure: The patient was seen myself the preoperative holding area, the operative site was marked. The patient was taken to the OR and anesthesia was administered without apparent difficulty. The patient was positioned supine, and all bony protuberances were well-padded. The left lower extremity was isolated prepped and draped in standard sterile fashion. A time was performed identifying the correct patient, side, site, procedure to be performed, that my initials were visible on the operative site, and all members of the team were given opportunities ask questions. After completion of the timeout, I made a fishmouth incision over the left great toe try to preserve as much skin as possible. The nature of decision removed the ulcer tissue. I started with a 15 blade and made the incision. Dissected down to the interphalangeal joint of the left great toe. The distal phalanx was removed. Bone was taken and sent for culture. This bone seem very infected. The boneof the proximal phalanx was questionable. Using the same incision we dissected to the midportion ofthe proximal phalanx of the left great toe. Soft tissue was elevated off of it circumferentially. Asaw was used to complete the amputation through the middle of the proximal phalanx. The tissue and bone there did not at all appear infected. It is thought that a complete resection of infected tissue was performed. Fortunately we did not have to amputate all the way back to the metatarsal phalangeal joint. The wound was copiously irrigated with 3 L of sterile normal saline. The wound was closed with 3-0 nylon sutures Xeroform and a sterile dressing was placed. The patient was awakened from anesthesia, transferred to hospital bed, taken to PACU in stable condition. I was present for the entire to the procedure. All counts were correct x2 at the end of the procedure. There were no intraoperative complications. Postoperative Plan: No weightbearing through the left forefoot Follow-up on operative cultures Antibiotics per infectious disease -it is thought that a complete amputation and resection of infected tissue was performed. Follow-up with me in 2 weeks for suture removal. Please feel free to call me to coordinate care or with questions. Milan Castro MD [phone] * Sammie Daly MD - 11/10/2023 1:02 PM EDT Date: 11/08/2023 - 11/10/2023 [place] [facility] [place] Name: Yoni Villalpando, : 1945, Diagnosis Pre-op Diagnosis * Osteomyelitis of foot, left, acute (CMS/HCC) [M86.172] Post-op Diagnosis * Osteomyelitis of foot, left, acute (CMS/HCC) [M86.172] Procedures Left great toe partial amputation Additional Procedures Indications: Ynoi Villalpando is an 78 y.o. male who is having surgery for left great toe osteomyelitis. Surgeon(s) & Towerman(s) * Milan Castro MD - Primary * Sammie Daly MD - Resident - Assisting No surgical staff documented. Staff Administrative Fellow: Amparo Lopez RN; Nilda Rocha RN Scrub Person: Sonali Carney Anesthesia: general ASA: III Estimated Blood Loss: Minimal Drains: * No LDAs found * Specimen: left great toe distal phalanx and left great toe proximal phalanx head sent for pathology Findings: left great toe distal phalanx osteomyelitis Complications: None; patient tolerated the procedure well. Disposition: PACU - hemodynamically stable. Condition: stable Orthopedic Brief Postop Note: Yoni Villalpando is a 78 y.o. year old male with left great toe osteomyelitis POD#0 after left great toepartial amputation with Dr. Castro on 11/10/2023. Weightbearing status: Heel only weightbearing LLE DVT prophylaxis: recommend aspirin 81 mg twice daily starting tomorrow Antibiotics: per primary Follow-up intra-op cultures PT/OT Pain control as ordered Dispo: Pending PT evaluation and antibiotic finalization Follow-up with Dr. Castro in 2 weeks Sammie Daly MD PGY-4 Orthopedic Surgery documented in this encounterAmerican Academic Health [id number] Surgery Surgical operation note* Milan Castro MD - 11/10/2023 1:02 PM EDT OPERATIVE RE[place] [facility] [place] Patient Name: Yoni Villalpando Patient : 1945 Patient Date of surgery: 11/10/23 Surgeon: Milan Castro MD Towerman: Sammie Daly PGY 4 Preoperative Diagnosis: Left great toe osteomyelitis involving the distal phalanx and proximal aspect of the proximal phalanx Postoperative Diagnosis: Same as preoperative diagnosis Surgical Procedure: Left great toe amputation through the proximal phalange Operative Findings: Infected appearing bone of the distal phalanx and very distal aspect of the proximal phalanx of theleft great toe Anesthesia: Duc Mitchell MD general Blood Loss: Less than 50 cc Complications: None. Tourniquet Time: * Missing tourniquet times found for documented tourniquets in lo * Disposition: PACU Indication for the procedure: The patient is a 78 y.o. year old male with left great toe osteomyelitis. We discussed treatment options including nonoperative and operative management. Explained a poor expected prognosis with nonoperative management. I made a recommendation for surgery in the form of the above surgery. We discussed risk of surgery including but not limited to bleeding, continued infection, damage surrounding neurovascular structures, chronic pain deformity and disability of the limb, need for reoperation, aswell as risk of general anesthesia including but not limited to myocardial infarction, respiratory failure, DVT, PE, stroke, and . Ultimately verbal and written consent for the above-stated surgery was obtained. Description of the procedure: The patient was seen myself the preoperative holding area, the operative site was marked. The patient was taken to the OR and anesthesia was administered without apparent difficulty. The patient was positioned supine, and all bony protuberances were well-padded. The left lower extremity was isolated prepped and draped in standard sterile fashion. A time was performed identifying the correct patient, side, site, procedure to be performed, that my initials were visible on the operative site, and all members of the team were given opportunities ask questions. After completion of the timeout, I made a fishmouth incision over the left great toe try to preserve as much skin as possible. The nature of decision removed the ulcer tissue. I started with a 15 blade and made the incision. Dissected down to the interphalangeal joint of the left great toe. The distal phalanx was removed. Bone was taken and sent for culture. This bone seem very infected. The boneof the proximal phalanx was questionable. Using the same incision we dissected to the midportion ofthe proximal phalanx of the left great toe. Soft tissue was elevated off of it circumferentially. Asaw was used to complete the amputation through the middle of the proximal phalanx. The tissue and bone there did not at all appear infected. It is thought that a complete resection of infected tissue was performed. Fortunately we did not have to amputate all the way back to the metatarsal phalangeal joint. The wound was copiously irrigated with 3 L of sterile normal saline. The wound was closed with 3-0 nylon sutures Xeroform and a sterile dressing was placed. The patient was awakened from anesthesia, transferred to hospital bed, taken to PACU in stable condition. I was present for the entire to the procedure. All counts were correct x2 at the end of the procedure. There were no intraoperative complications. Postoperative Plan: No weightbearing through the left forefoot Follow-up on operative cultures Antibiotics per infectious disease -it is thought that a complete amputation and resection of infected tissue was performed. Follow-up with me in 2 weeks for suture removal. Please feel free to call me to coordinate care or with questions. Milan Castro MD [phone] [facility] [id number] Surgery Surgical operation note* Sammie Daly MD - 11/10/2023 1:02 PM EDT Date: 11/08/2023 - 11/10/2023 [place] [facility] [place]: Yoni Villalpando, : 1945, Diagnosis Pre-op Diagnosis * Osteomyelitis of foot, left, acute (CMS/HCC) [M86.172] Post-op Diagnosis * Osteomyelitis of foot, left, acute (CMS/HCC) [M86.172] Procedures Left great toe partial amputation Additional Procedures Indications: Yoni Villalpando is an 78 y.o. male who is having surgery for left great toe osteomyelitis. Surgeon(s) & Towerman(s) * Milan Castro MD - Primary * Sammie Daly MD - Resident - Assisting No surgical staff documented. Staff Administrative Fellow: Amparo Lopez RN; Nilda Rocha RN Scrub Person: Sonali Carney Anesthesia: general ASA: III Estimated Blood Loss: Minimal Drains: * No LDAs found * Specimen: left great toe distal phalanx and left great toe proximal phalanx head sent for pathology Findings: left great toe distal phalanx osteomyelitis Complications: None; patient tolerated the procedure well. Disposition: PACU - hemodynamically stable. Condition: stable Orthopedic Brief Postop Note: Yoni Villalpando is a 78 y.o. year old male with left great toe osteomyelitis POD#0 after left great toepartial amputation with Dr. Castro on 11/10/2023. Weightbearing status: Heel only weightbearing LLE DVT prophylaxis: recommend aspirin 81 mg twice daily starting tomorrow Antibiotics: per primary Follow-up intra-op cultures PT/OT Pain control as ordered Dispo: Pending PT evaluation and antibiotic finalization Follow-up with Dr. Castro in 2 weeks Sammie Daly MD PGY-4 Orthopedic Surgery [facility] [id number] Consult note* Milan Castro MD - 11/10/2023 12:35 PM EDT Orthopedic Surgery Consult Note Chief complaint: Left great toe wound History of present illness: The patient is a 78-year-old male who presented to [facility] emergency room on 11/08/2023. He has had a wound over the plantar aspect of his left great toe for the past 2 months. Initially this was cared for in [place] and is progressively worsened. Ultimately he is here in [place] now and family recommended he come to the emergency room. He does not have significant pain there. Does have a history of a vascular stent. Does not have diabetes with neuropathy. Past Medical History: Diagnosis Date Congestive heart failure (CHF) ([facility]) COPD (chronic obstructive pulmonary disease) ([facility]) Coronary artery disease Hyperlipidemia Hypertension Myocardial infarction ([facility]) Peripheral arterial disease with history of revascularization ([facility]) Vocal cord cancer ([facility]) Current Outpatient Medications Medication Instructions albuterol HFA (PROAIR HFA ; PROVENTIL HFA ; VENTOLIN HFA) 90 mcg/actuation inhaler 2 puffs, inhalation, Every 6 hours PRN allopurinoL (ZYLOPRIM) 100 mg, oral, Daily amLODIPine (NORVASC) 5 mg, oral, Daily aspirin 81 mg, oral, Daily cephalexin (KEFLEX) 500 mg, oral, Every 6 hours cholecalciferol (VITAMIN D-3) 1,000 Units, oral, Daily finasteride (PROSCAR) 5 mg, oral, Daily, fluticasone propion-salmeteroL (ADVAIR DISKUS) 100-50 mcg/dose diskus inhaler 1 puff, inhalation, 2times daily, Rinse mouth with water after use to reduce aftertaste and incidence of candidiasis. Donot swallow. furosemide (LASIX) 40 mg, oral, Daily High Potency Iron 27 mg, oral, Daily oxyCODONE (ROXICODONE) 5 mg, oral, Every 4 hours PRN pantoprazole (PROTONIX) 40 mg, oral, Every morning before breakfast, Do not crush, chew, or split. phenylephrine (SUDAFED PE) 10 mg, oral, 2 times daily PRN potassium chloride (KLOR-CON) 10 mEq CR tablet 10 mEq, oral, 2 times daily, rOPINIRole (REQUIP) 2 mg, oral, 2 times daily spironolactone (ALDACTONE) 25 mg, oral, Daily tamsulosin (FLOMAX) 0.4 mg, oral, Daily with breakfast, Capsules should be taken 30 minutes following the same meal each day. Tart Hernandez Extract 1,000 mg, oral, Daily tiotropium (SPIRIVA) 18 mcg per inhalation capsule 1 capsule, inhalation, Daily UNABLE TO FIND 450 mg, oral, Daily, Med Name: Apple Cider Vinegar UNABLE TO FIND 1 tablet, oral, Daily, Med Name: The Prostate Formula valsartan (DIOVAN) 320 mg, oral, Daily No Known Allergies Past Surgical History: Procedure Laterality Date CARDIAC CATHETERIZATION CORONARY STENT PLACEMENT HIP ARTHROPLASTY Left 2017 STENT PERIPHERAL VASCULAR THROAT SURGERY Social History Socioeconomic History Marital status: Spouse name: Not on file Number of children: Not on file Years of education: Not on file Highest education level: Not on file Occupational History Not on file Tobacco Use Smoking status: Former Types: Cigarettes Smokeless tobacco: Never Vaping Use Vaping status: Never Used Substance and Sexual Activity Alcohol use: Never Drug use: Never Sexual activity: Not on file Other Topics Concern Not on file Social History Narrative Not on file Physical Exam: General: The patient is awake alert and oriented and in no acute distress. Cardiac exam: Regular rate. Respiratory exam: There is no increased work of breathing noted. There are symmetric rise and fall the chest bilaterally. Abdomen exam: The abdomen is soft and nontender. Musculoskeletal exam: Right upper extremity: There is no obvious deformity or lesion. The patient is nontender to palpation throughout it. The patient can actively range it within the constraints of the bed without difficulty. Left upper extremity: There is no obvious deformity or lesion. The patient is nontender to palpation throughout it. The patient can actively range it within the constraints of the bed without difficulty. Right lower extremity: Right lower extremity is examined. There is a superficial ulcer on the plantar aspect of the foot over the fifth metatarsal head there is good granulation tissue at the base, mild hyperkeratotic skin around the periphery. Does not probe to bone. No surrounding cellulitis. Left lower extremity: Left lower extremity is examined. He can flex his hip flex and extend his knee and dorsiflex plantarflex his ankle and motors lesser toes without difficulty. There is an ulcer over the plantar aspect of the great toe with surrounding cellulitis. Purulent drainage when I squeeze on this. The other toes are unremarkable. Brisk cap refill in all of his toes. Sensation present by light touch in the dorsal and plantar aspect of his foot. Pelvis: The skin is intact. There is no gross pelvic instability. No tenderness to palpation. Labs: Recent Results (from the past 24 hour(s)) Lactate Collection Time: 11/09/23 12:48 PM Result Value Ref Range Lactate 3.4 (H) 0.5 - 2.0 mmol/L PST green LI heparin tube Collection Time: 11/10/23 4:03 AM Result Value Ref Range Extra Tube Hold for add-ons. Troponin I high sensitivity Collection Time: 11/10/23 4:51 AM Result Value Ref Range High Sensitivity Troponin I 39 (H) <20 ng/L Basic metabolic panel Collection Time: 11/10/23 4:51 AM Result Value Ref Range Sodium 140 136 - 145 mmol/L Potassium 3.8 3.6 - 5.1 mmol/L Chloride 108 (H) 98 - 107 mmol/L CO2 25 22 - 32 mmol/L Anion Gap 7 6 - 18 Glucose 106 (H) 70 - 99 mg/dL BUN 21 (H) 8 - 20 mg/dL Creatinine 0.96 0.60 - 1.30 mg/dL eGFR 82 >=60 mL/min/1.73m2 BUN/Creatinine Ratio 21.9 (H) 12.0 - 20.0 Calcium 8.2 (L) 8.9 - 10.3 mg/dL Complete blood count Collection Time: 11/10/23 4:51 AM Result Value Ref Range WBC 5.0 4.6 - 10.2 K/mcL RBC 3.98 (L) 4.30 - 5.70 M/mcL Hemoglobin 11.9 (L) 13.5 - 17.5 g/dL Hematocrit 36.6 (L) 39.0 - 49.0 % MCV 92.0 80.0 - 97.0 FL MCH 29.9 27.0 - 34.0 pcg MCHC 32.5 30.8 - 35.3 g/dL RDW 13.7 11.0 - 14.8 % Platelets 131 (L) 142 - 424 K/mcL MPV 11.0 6.2 - 12.1 FL Immature Platelet Fraction 5.4 1.4 - 10.8 % Lactate Collection Time: 11/10/23 4:51 AM Result Value Ref Range Lactate 1.3 0.5 - 2.0 mmol/L Transthoracic echocardiogram (TTE) complete with PRN contrast, bubble, strain, and 3D order panel Collection Time: 11/10/23 8:25 AM Result Value Ref Range Left Atrium Minor Clendenin 6.4 cm Left Atrium Major Clendenin 5.5 cm LA Area Sys (A2C) 22 cm2 LA Area Sys (A4C) 19 cm2 LA Volume (BP) 62 mL LA Size 4.7 cm AV Mean Gradient 7 mmHg Ao VTI 32.2 cm AV Peak Carlito 1.9 m/s AV Peak Gradient 14 mmHg AV Area Continuity Equation 1.8 cm2 AV Area Peak Velocity 1.7 cm2 Aortic Root 3.1 cm Ascending Aorta 3.2 cm Ejection Fraction (3D) 50 % LVOT Stroke Volume 58 mL LV Bunn Vol 3D 209 mL LV Sys Vol 3D 104 mL LV Mass 3D 211 g IVSD 1.4 (A) 0.6 - 1.0 cm LVIDD 5.8 4.2 - 5.8 cm LVIDS 4.3 (A) 2.5 - 4.0 cm LVOT Diameter 2.0 cm LVOT Mean Carlito 0.7 m/s LVOT Mean Grad 2 mmHg LVOT Peak VTI 18.4 cm LVOT Peak Carlito 1.0 m/s LVOT Peak Gradient 4 mmHg LVPWD 1.2 (A) 0.6 - 1.0 cm MV E' Tissue Velocity Lateral 9 cm/s MV E' Tissue Velocity Septal 4 cm/s GLS -14.8 % LVOT Area 3.1 cm2 E Wave Deceleration Time 214 119 - 242 ms MV Peak A Carlito 0.59 m/s MV Peak E Carlito 0.91 m/s RV Diastolic Basal Dimension 4.2 (A) 2.5 - 4.1 cm RV Diastolic Length 9.2 (A) 5.9 - 8.3 cm RV Diastolic Mid Dimension 2.7 1.9 - 3.5 cm RV S' 17 cm/s TR Peak Velocity 2.97 m/s TR Peak Gradient 35 mmHg E/E' Ratio Septal 23 E/E' Ratio Averaged 16 LVOT Stroke Index 27 mL/m2 LA Dimension Index 2D 2.2 cm/m2 Relative Wall Thickness ratio 0.41 LV Mass Index 3D 97 g/m2 LVOT:AV VTI Index 0.57 FS 26 % LV Mass 2D 331 g Ascending Aorta Index 1.47 cm/m2 LVOT flow 220 mL/s YASSINE Index (VTI) 0.83 cm2/m2 YASSINE Index (Pk Carlito) 0.78 cm2/m2 LVIDD Index 2.67 cm/m2 LVIDS Index 1.98 cm/m2 Aortic Root Index 1.43 cm/m2 LV EDV Index (3D) 96 mL/m2 LV ESV Index (3D) 48 mL/m2 AV Velocity Ratio 0.53 E/A Ratio 1.5 E/E' Ratio Lateral 10 LA Volume Index (BP) 29 mL/m2 LV Mass Index 2D 153 g/m2 LA/Ao Ratio 1.5 BSA 2.22 m2 Diagnostic Studies: Independently reviewed x-rays of the left foot from 11/08/2023 that show fracture and bony irregularity about the distal phalanx of the left great toe concerning for fracture versus osteomyelitis. Independently reviewed an MRI of the left foot from 11/09/2023 that show edema in the proximal phalanx as well as fracture and signal change in the distal phalanx concerning for osteomyelitis of the left great toe Impression and Plan: This is a 78 y.o. male with left great toe osteomyelitis. This is a new problem with uncertain prognosis. I do long discussion with the patient about treatment options including nonoperative and operative management. I explained a poor expected prognosis with nonoperative management. Made a recommendation for surgery in the form of a left great toe amputation through the metatarsal phalangeal joint. Wediscussed risk of surgery including but not limited to continued infection damage to surrounding neurovascular structures change in his gait chronic pain deformity and disability as well as need for reoperation or persistent infection. We discussed medical risks as well. Ultimately he wished to proceed. Pain control N.p.o. for surgical management later on today. Please feel free to call me with questions or to coordinate care. Milan Castro M.D. [phone] [facility] [id number] Hospital Discharge instructions* Discharge Instructions * Zunilda Almanza RN - 11/10/2023 11:53 AM EDT Images from the original note were not included. Foot Surgery Post-Operative Instructions Dr. Milan Castro M.D. [phone] Dressing: Your foot will have a dressing on it. This needs to be changed each day. Remove the dressing and place a clean dry gauze dressing on your incision. Then wrap the dressing and hold it in place with a kerlex roll and then an ENRIKE wrap. Activity: You are heel-only weightbearing on the lower extremity that you had surgery. Pain: Intermittent numbness and tingling is normal after surgery, and is usually felt while and after being up. It will lessen with elevation. Your pain will usually peak at 24-48 hours after surgery. It may feel like stabbing, pulling, pinching or throbbing. You will be sent home with a prescription for pain medication. Take your pain medication as prescribed. We recommend you start the medication even with mild pain the first night of surgery. Take your pain medication with food, to decrease the chance of nausea. Usually by the second or third day after surgery, your foot will begin to feelbetter, and you will require less medication. ELEVATION: Elevation of the operative foot/ankle is critical. This reduces swelling and minimizes pain. Less swelling is associated with a lower infection rate, fewer wound complications, less postoperative stiffness and more rapid recovery. (And you'll also get a normal shoe on sooner). To keep swelling down, your foot/ankle must be kept above the level of your heart. This is only possible when you are lying down. Ice/Heat: You may use ice on your splint to help with swelling, but it is not required. Please notify our office if you experience -A temperature over 101 degrees. -Increasing pain or Numbness or tingling not relieved with elevation. -Increasing redness or increasing drainage from your incision. -Increasing or foul-smelling discharge. -A dressing that feels painfully tight despite elevation. -Any other questions or concerns. Medications: You may resume your normal medications as prescribed by your primary care doctor the day after your surgery. Pain Medications: You will be given pain medications to take after surgery to help control the pain. Do not drive or consume alcoholic beverages while taking pain medications. Pain medications may cause constipation so you may also want to take a stool softener such as Colace. Nausea: Many patients experience nausea after surgery. Unfortunately, this can be a side effect of many pain medications, if you can limit your use of narcotics the nausea may improve. Follow-Up Appointment: Please call my office ([phone]) to schedule your post-op appointment. Iwould like to see you roughly 2 weeks from the date of your surgery. Office locations are located [facility], [place], and [place]. Please call the office and they will schedule you at the most convenient location. Daily Weights. Monitor for signs of fluid overload. Call physician if patient gains more than 2 lbsovernight or 5 lbs in one week, or develops increased shortness of breath, or swelling in legs, feet or belly. * Attachments The following attachments cannot be sent through Care Everywhere. * Heart Failure ([place]i) * Fluid Restriction ([place]i) documented in this encounterAmerican Academic Health [id number] Consult note* ZAIN Monterroso - 11/09/2023 2:53 PM EDTAssociated Order(s): IP CONSULT TO CARDIOLOGY Images from the original note were not included. CARDIOLOGY CONSULTATION NOTE Impression: 78-year-old gentleman presented for evaluation of worsening left great toe wound in addition to peripheral edema and worsening shortness of breath. Found to have suspected left great toe distal phalanx fracture and concern for osteomyelitis. We have been asked to see the patient for preoperative valuation -Preoperative evaluation. Patient tentatively scheduled for I&D tomorrow 11/02/2023 with orthopedic surgery for possible osteomyelitis left great toe -Congestive heart failure; unspecified. Sounds like he has a history of ischemic cardiomyopathy butthere is no recent echo for review. BNP mildly elevated. He has biventricular features on exam and cannot exclude a degree of pulmonary hypertension given his lower extreme edema and mild abdominal distention and history of COPD. -Elevated troponin. Mild, adynamic troponin. Not conclusive for ACS. He denies any chest discomfort. Most likely demand ischemia. No acute ECG changes -Atherosclerotic coronary disease with remote IN and PCI/stenting to an unknown vessel over 10 years ago in [place]. No detailed records available -Peripheral arterial disease with previous lower extremity revascularization -COPD with prior history of tobacco use, quitting in 2009 -Essential hypertension -Hyperlipidemia Recommendations: -Echocardiogram with Doppler has been ordered for review. Findings will guide further recommendations. -For reasons unclear, he is really not on any appropriate guideline directed medical therapy for his history of CHF other than furosemide and Aldactone. He was on carvedilol but discontinued. Will reassess medications once echo reviewed. -He did respond to IV Lasix and his lower extremity edema has improved. He is actually receiving gentle IV hydration due to elevated lactate. ZAIN Ruiz 11/09/23 3:04 PM EDT [facility] Thank you for this consultation. If you have any questions, please feel free to call. First Call Mon-Fri [id number]: [facility] [place] [phone] [facility] [place] [phone] [facility] [phone] After hours/Weekends: [phone] For listed Attendings On-Call at each site click here Patient Name : Yoni Villalpando 1945 Date of Consultation: 11/09/23 Reason for Consultation: Pre-op Requesting Physician: Alba Martin NP Primary Armed Security Officer: [place] History of Present Illness: Mr. Yoni Villalpando is a 78 y.o. male who presented to the emergency department with lower extremity swelling and worsening left great toe wound. He resides in [place] and just recently travel to [facility]. He does follow with wound care for right lower extremity foot ulcer but had been selftreating his left toe wound. He had completed a course of antibiotics. Ridging studies have been completed and he has been seen by orthopedic surgery for evaluation of suspected left great toe distalphalanx fracture and concern for osteomyelitis. There is mention of possible I&D tomorrow 11/10/2023. We have been asked to see the patient for preoperative evaluation. He does have a history of coronary disease with remote IN in 2009, hospitalized in [place], with PCI and stenting to an unknown vessel. He does not provide any details. At that time he was treated for CHF and he recalls a history of left ventricular systolic function but has not had any cardiac testing or regular follow-up for a number of years. 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 He additionally has a history of peripheral arterial disease with previous lower extremity DOMINATRIX and stenting by vascular surgery. I reviewed his medication list. He was previously on carvedilol which has been discontinued. He is on amlodipine for treatment of hypertension. He is on Lasix and Aldactone and remains compliant with diuretic therapy. He has denied any rest or exertional chest discomfort. Comorbidities include prior history of tobacco use, COPD, hypertension, hyperlipidemia and remote history of DVT. He does report chronic exertional dyspnea attributed to his COPD. Recently, he has noted worsening bilateral lower extremity edema and increased abdominal distention as well as orthopnea. He did receive a dose of IV Lasix 40 mg overnight. His lower extremity edema has apparently improved. Cardiac studies: Telemetry personally reviewed which shows: Normal sinus rhythm with PACs and PVCs ECG 11/09/2023: Normal sinus rhythm with PVCs and PACs. Voltage criteria for LVH. Age-indeterminate inferior wall infarction. Cannot exclude age-indeterminate anterior wall infarction. REVIEW OF SYSTEMS CARDIAC: Positive for shortness of breath/exertional dyspnea and peripheral edema. Negative for chest pain or palpitations. GENERAL: Negative for nausea, vomiting, fevers, chills, or weight loss. NEUROLOGIC: Negative for blurry vision, double vision, facial asymmetry, dysphagia, dysarthria, hemiparesis, hemisensory deficits, vertigo. HEENT: Negative for head trauma, neck trauma, neck stiffness, photophobia, phonophobia, sinusitis, rhinitis. PULMONARY: Positive for shortness of breath and occasional productive cough. Negative for hemoptysis. GASTROINTESTINAL: Positive for increased abdominal distention. Negative for abdominal pain, nausea,vomiting, bright red blood per rectum, melena. GENITOURINARY: Negative for dysuria, hematuria or urinary incontinence. INTEGUMENTARY: Negative for rashes, cuts, insect bites. RHEUMATOLOGIC: Negative for joint pains, photosensitive rashes. HEMATOLOGIC: Negative for abnormal bruising, frequent infections or bleeding. Past Medical History: Diagnosis Date Congestive heart failure (CHF) (CMS/HCC) COPD (chronic obstructive pulmonary disease) (CMS/HCC) Coronary artery disease Hyperlipidemia Hypertension Myocardial infarction (CMS/HCC) Peripheral arterial disease with history of revascularization (CMS/HCC) Vocal cord cancer (CMS/HCC) Past Surgical History: Procedure Laterality Date CARDIAC CATHETERIZATION CORONARY STENT PLACEMENT STENT PERIPHERAL VASCULAR THROAT SURGERY Social History Socioeconomic History Marital status: Spouse name: Not on file Number of children: Not on file Years of education: Not on file Highest education level: Not on file Occupational History Not on file Tobacco Use Smoking status: Former Types: Cigarettes Smokeless tobacco: Never Substance and Sexual Activity Alcohol use: Not on file Drug use: Not on file Sexual activity: Not on file Other Topics Concern Not on file Social History Narrative Not on file Family History Problem Relation Name Age of Onset Lung cancer Brother Prior to Admission medications Medication Sig Start Date End Date Taking? Authorizing Provider albuterol HFA (PROAIR HFA ; PROVENTIL HFA ; VENTOLIN HFA) 90 mcg/actuation inhaler Inhale 2 puffs by mouth every 6 (six) hours if needed for wheezing. Yes Historical Provider, allopurinoL (ZYLOPRIM) 100 mg tablet Take 1 tablet (100 mg total) by mouth 1 (one) time each day. Yes Historical Provider, amLODIPine (NORVASC) 5 mg tablet Take 1 tablet (5 mg total) by mouth 1 (one) time each day. Yes Historical Provider, aspirin 81 mg EC tablet Take 1 tablet (81 mg total) by mouth 1 (one) time each day. Yes Historical Provider, cephalexin (KEFLEX) 500 mg capsule Take 1 capsule (500 mg total) by mouth every 6 (six) hours. Yes Historical Provider, cholecalciferol (VITAMIN D-3) 25 mcg (1,000 unit) tablet Take 1 tablet (1,000 Units total) by mouth1 (one) time each day. Yes Historical Provider, ferrous sulfate (High Potency Iron) 27 mg iron tablet Take 27 mg by mouth 1 (one) time each day. Yes Historical Provider, finasteride (PROSCAR) 5 mg tablet Take 1 tablet (5 mg total) by mouth 1 (one) time each day. Yes Historical Provider, fluticasone propion-salmeteroL (ADVAIR DISKUS) 100-50 mcg/dose diskus inhaler Inhale 1 puff by mouth 2 (two) times a day. Rinse mouth with water after use to reduce aftertaste and incidence of candidiasis. Do not swallow. Yes Historical Provider, furosemide (LASIX) 40 mg tablet Take 1 tablet (40 mg total) by mouth 1 (one) time each day. Yes Historical Provider, pantoprazole (PROTONIX) 40 mg EC tablet Take 1 tablet (40 mg total) by mouth 1 (one) time each day before breakfast. Do not crush, chew, or split. Yes Historical Provider, phenylephrine (SUDAFED PE) 10 mg tablet Take 1 tablet (10 mg total) by mouth 2 (two) times a day ifneeded for congestion. Yes Historical Provider, potassium chloride (KLOR-CON) 10 mEq CR tablet Take 1 tablet (10 mEq total) by mouth 2 (two) times a day. Yes Historical Provider, rOPINIRole (REQUIP) 2 mg tablet Take 1 tablet (2 mg total) by mouth 2 (two) times a day. Yes Historical Provider, sour hernandez extract (Tart Hernandez Extract) 1,000 mg capsule Take 1,000 mg by mouth 1 (one) time eachday. Yes Historical Provider, spironolactone (ALDACTONE) 25 mg tablet Take 1 tablet (25 mg total) by mouth 1 (one) time each day.Yes Historical Provider, tamsulosin (FLOMAX) 0.4 mg 24 hr capsule Take 1 capsule (0.4 mg total) by mouth 1 (one) time each day with breakfast. Capsules should be taken 30 minutes following the same meal each day. Yes Historical Provider, tiotropium (SPIRIVA) 18 mcg per inhalation capsule Place 1 capsule (18 mcg total) into inhaler and inhale 1 (one) time each day. Yes Historical Provider, UNABLE TO FIND Take 450 mg by mouth 1 (one) time each day. Med Name: Apple Cider Vinegar Yes Historical Provider, UNABLE TO FIND Take 1 tablet by mouth 1 (one) time each day. Med Name: The Prostate Formula Yes Historical Provider, oxyCODONE (ROXICODONE) 5 mg immediate release tablet Take 1 tablet (5 mg total) by mouth every 4 (four) hours if needed (moderate pain or when therapies for mild pain were not effective). Max Daily Amount: 30 mg 01/09/23 Ken Donato DO valsartan (DIOVAN) 320 mg tablet Take 1 tablet (320 mg total) by mouth 1 (one) time each day. Patient not taking: Reported on 11/09/2023 01/05/23 Morgan Grover MD carvediloL (COREG) 3.125 mg tablet Take 1 tablet (3.125 mg total) by mouth 2 (two) times a day withmeals. 11/09/23 Historical Provider, dutasteride (AVODART) 0.5 mg capsule Take 1 capsule (0.5 mg total) by mouth 1 (one) time each day. 11/09/23 Historical Provider, No Known Allergies Physical Exam: Patient Vitals for the past 24 hrs: BP Temp Temp src Pulse Resp SpO2 Height Weight 11/09/23 1040 (!) 145/82 -- -- 81 17 92 % -- -- 11/09/23 0939 (!) 174/83 -- -- 86 20 96 % -- -- 11/09/23 0619 (!) 158/90 -- -- 63 25 94 % -- -- 11/09/23 0534 (!) 158/86 -- -- 65 16 93 % -- -- 11/09/23 0400 -- -- -- (!) 33 -- 95 % -- -- 11/08/23 2330 -- -- -- 68 18 94 % -- -- 11/08/23 2106 (!) 169/78 36.7 C (98.1 F) Oral 68 18 94 % 1.778 m (70) 99.8 kg (220 lb) Intake/Output Summary (Last 24 hours) at 11/09/2023 1504 Last data filed at 11/09/2023 0300 Gross per 24 hour Intake 100 ml Output -- Net 100 ml Wt Readings from Last 3 Encounters: 11/08/23 99.8 kg (220 lb) 11/09/23 99.8 kg (220 lb) 01/07/23 96.1 kg (211 lb 12.8 oz) Body mass index is 31.57 kg/m . General appearance/constitutional: The patient is in no distress. EYES: No xanthelasma. Normal conjunctiva. Ears, Nose, Mouth and Throat: Normocephalic. Limited dentition examination. Voice is hoarse. Neck: No neck tenderness, masses or nodules. Respiratory/chest: Diminished breath sounds anteriorly. No wheezes or rales. Heart: Regular rate and rhythm. S1, S2 normal. Some extrasystoles. No obvious gallop. No murmurs. There is no jugular venous distension noted. Abdomen/gastrointestinal: Soft, non-tender. Bowel sounds normal. Extremities: There is 1+ pretibial peripheral lower extremity edema bilaterally. Chronic venous stasis discoloration. Musculoskeletal: Normal range of motion in the arms. Back: Not assessed. Pulses: Bilateral radial pulses are 2+ and symmetric. Skin: Skin color, texture normal. No rashes or lesions noted by limited skin examination Neurologic/psychiatric: The patient is oriented to time, place and person. Mood, memory, affect andjudgment are appropriate for this presentation Labs: Lab Results Component Value Date WBC 4.0 (L) 11/08/2023 HGB 12.9 (L) 11/08/2023 HCT 39.4 11/08/2023 MCV 92.9 11/08/2023 PLT 139 (L) 11/08/2023 Lab Results Component Value Date GLUCOSE 154 (H) 11/09/2023 CALCIUM 8.3 (L) 11/09/2023 NA 142 11/09/2023 K 3.9 11/09/2023 CO2 25 11/09/2023 CL 107 11/09/2023 BUN 16 11/09/2023 CREATININE 1.22 11/09/2023 Lab Results Component Value Date HSTROPI 35 (H) 11/09/2023 No results found for: TSH No results found for: ALT, AST, GGT, ALKPHOS, BILITOT Lab Results Component Value Date INR 0.9 11/09/2023 Associated attestation - Nallely Benavidez - 11/09/2023 3:52 PM EDT Cardiology Attending Attestation. I saw and examined this patient, and discussed with ZAIN Monterroso. I have personally performed a [id number] evaluation on this patient. I have reviewed the care plan. I was physically present for the Evaluation and Management service provided. I agree with the note and plan which I have reviewed and edited where appropriate. I have confirmed the physical exam findings and made appropriate changes. Physical Exam: General: A+Ox3, in NAD Cardiovascular: regular rate, normal S1/S2, no m/r/g. No significant JVD. Lungs: bibasilar crackles Extremities: warm and well perfused. 1+ bilateral LE edema Skin: no rashes. Normal skin texture. Eyes: No xanthelasma. Normal conjunctiva. No jaundice. HENT: Normocephalic/atraumatic. Oral mucosa moist. Neck: Trachea midline. Supple. No obvious thyromegally. Musculoskeletal. Normal range of motion in the arms. Gait was not assessed. No joint inflammation appreciated. Neuro: grossly intact I was physically present for the garza portions of the history, physical and service provided. Assessment: Mr. Villalpando is a 78-year-old man with coronary artery disease, COPD, peripheral artery disease, hypertension, hyperlipidemia, vocal cord cancer admitted with osteomyelitis of his left great toe. We are consulted for preoperative cardiovascular examination. 1. Preoperative cardiovascular examination -His revised cardiac risk index is significant for ischemic cardiomyopathy and possible congestive heart failure which places him at increased risk of major adverse cardiac events. Echocardiogram hasbeen ordered which we will review to better assess his systolic function. Given the low risk natureof the surgery, I do not think there is any additional testing that we will need to be done. 2. Coronary artery disease -History of PCI over 10 years ago. Will try to obtain records. 3. Heart failure-likely diastolic -Will review echocardiogram when complete 4. Peripheral arterial disease 5. Osteomyelitis 6. COPD 7. Hypertension 8. Hyperlipidemia Plan: -Echocardiogram. -For now continue Aldactone. I anticipate he will need addition of beta-emory therapy will reviewhis echocardiogram first. -Oral Lasix is on hold as he has received IV Lasix. We will continue to follow. Nallely Benavidez MD, [facility]iology [id number] Consult note* ZAIN Duarte - 11/09/2023 7:03 AM EDT Associated Order(s): IP CONSULT TO ORTHOPEDIC SURGERY ORTHOPEDIC SURGERY CONSULTATION NOTE CC: Left great toe wound Chief Complaint Patient presents with Toe Injury Left foot pain, patient skinned his left foot great toe. Was given cephalexin for injury. Patient with bilateral leg swelling and discoloration. Patient with CHF. Attending Physician: Milan Castro MD Date of Service: 11/09/2023 7:04 AM EDT Reason for Consultation: X-ray findings with left great toe distal phalanx fracture as well as concern for osteomyelitis Requesting Service: Medicine Subjective Yoni Villalpando is a 78 y.o. male with a past medical history of COPD, CHF, CAD, GERD, hypertension, and gout who presented to the [facility] emergency department for evaluation of a left great toe wound. X-rays of the left foot were obtained which demonstrates a left great toe distal phalanx fracture as well as cortical changes concerning for osteomyelitis. Orthopedics was consulted for further evaluation and management. I saw and evaluated the patient at bedside. He states that approximately 1 month ago he was wearingshoes when his foot got sweaty and the skin at the distal aspect of his toe peeled off. He states he has been dealing with this left great toe wound for approximately 1 month. He notes 1 instance approximately 1 week ago when he states his stepped on his left foot, but he denies any other injuries or trauma. He states his peripheral neuropathy at baseline and has difficulty feeling his toes.He denies any pain in his left foot or toes. In regards to his wound, he has noted a pinkish clear drainage. He denies fevers or chills. He states he was seen at an outside facility approximately 10 days ago when he was placed on antibiotics. He cannot remember the name of the antibiotics. He states when he came to the emergency department today he still had approximately 15 pills left. He is an unassisted community ambulator at baseline. He is visiting family in [place]. He resides in [place] andis established with a wound care team that he sees once a week for a right foot ulcer that is currently stable. He states he will be returning to [place] the first week of November. He is currently afebrile. White blood cell count 4.0. CRP 2.3. ESR 39. Of note, he also has a rightlateral plantar foot wound that he follows with the wound care team in [place] every week for. No drainage or redness noted. Review of Systems: Musculoskeletal system reviewed, pertinent positives and negatives per HPI. Denies fevers or chills. Medical History: COPD, CHF, CAD, GERD, hypertension, and gout Allergies: Patient has no known allergies. Surgical History: History reviewed. No pertinent surgical history. Family History: Family History Problem Relation Name Age of Onset Lung cancer Brother Social History: Smoking: Patient denies use. Patient states he quit smoking in 2009. Alcohol: Patient denies use. Drug use: Patient denies use. Living Situation: Patient is an unassisted community ambulator at baseline. He is visiting family in [place]. He currently resides in [place] and will be returning the first week of November. Objective Visit Vitals BP (!) 158/90 (BP Location: Left arm;Upper, Patient Position: Lying) Pulse 63 Temp 36.7 C (98.1 F) (Oral) Resp 25 Ht 1.778 m (70) Wt 99.8 kg (220 lb) SpO2 94% BMI 31.57 kg/m Smoking Status Former BSA 2.17 m PHYSICAL EXAM: General: Awake and alert; oriented to person, place, and time. Lying in bed. No acute distress. Nonseptic appearing. Head: Normocephalic. Atraumatic. Neck: Trachea midline. Phonation normal. Cardiac: Rate normal. Respiratory: Unlabored breathing. Symmetric rise and fall of chest bilaterally. Left lower extremity: There is an approximately 1.5 cm x 1.5 cm circular wound to the plantar distal aspect of the left great toe. No other wounds noted about the foot. The wound base is pink. Centrally there is a yellow area that does probe approximately half a centimeter deep. No drainage noted. No surrounding erythema noted. Swelling noted throughout the left great toe. Denies tenderness with palpation about the toes, foot, ankle, or proximally up the leg. Actively flexes/extends hip and knee and dorsiflex/plantarflex his ankle without pain. Fires FHL/EHL, and motors lesser toes well. Sensation intact, but diminished throughout the foot in the superficial peroneal and tibial nerve distributions. He is unable to feel me touching in the deep peroneal nerve distribution. Unable to palpateDP or PT pulse. DP and PT pulse dopplerable. Right lower extremity: There is an approximately 1.5 cm x 1.5 cm circular wound over the lateral aspect of the plantar midfoot. No surrounding erythema noted. No drainage noted. No pain throughout the right foot, ankle, or proximal about the leg. Active flexion/extension of the hip and knee and dors iflexion/plantarflexion of the ankle without pain. Fires FHL/EHL, and motors lesser toes well. Sensation intact, but diminished throughout the foot. Palpable DP pulse. Unable to palpate PT pulse. Dopplerable PT pulse. LABS: Admission on 11/08/2023 Component Date Value Sodium 11/08/2023 140 Potassium 11/08/2023 4.2 Chloride 11/08/2023 110 (H) CO2 11/08/2023 23 Anion Gap 11/08/2023 7 Glucose 11/08/2023 144 (H) BUN 11/08/2023 16 Creatinine 11/08/2023 1.19 eGFR 11/08/2023 63 BUN/Creatinine Ratio 11/08/2023 13.4 Calcium 11/08/2023 8.0 (L) WBC 11/08/2023 4.0 (L) RBC 11/08/2023 4.24 (L) Hemoglobin 11/08/2023 12.9 (L) Hematocrit 11/08/2023 39.4 MCV 11/08/2023 92.9 MCH 11/08/2023 30.4 MCHC 11/08/2023 32.7 RDW 11/08/2023 13.8 Platelets 11/08/2023 139 (L) MPV 11/08/2023 11.0 Immature Platelet Fracti* 11/08/2023 4.0 Neutrophils Relative 11/08/2023 54.9 Lymphocytes Relative 11/08/2023 33.9 Monocytes Relative 11/08/2023 9.4 Eosinophils Relative 11/08/2023 1.0 Basophils Relative 11/08/2023 0.3 Immature Granulocytes Re* 11/08/2023 0.5 Neutrophils Absolute 11/08/2023 2.17 Lymphocytes Absolute 11/08/2023 1.34 Monocytes Absolute 11/08/2023 0.37 Eosinophils Absolute 11/08/2023 0.04 Basophils Absolute 11/08/2023 0.01 Immature Granulocytes Ab* 11/08/2023 0.02 BNP 11/08/2023 316 (H) High Sensitivity Troponi* 11/08/2023 44 (H) Sed Rate 11/08/2023 39 (H) C-Reactive Protein 11/08/2023 2.3 (H) Lactate 11/08/2023 2.2 (H) Ventricular Rate ECG 11/08/2023 66 Atrial Rate 11/08/2023 66 P-R Interval 11/08/2023 154 QRS Duration 11/08/2023 112 Q-T Interval 11/08/2023 436 QTc 11/08/2023 457 P Wave [place] 11/08/2023 69 R [place] 11/08/2023 -33 T [place] 11/08/2023 6 ECG Interpretation 11/08/2023 Value:Normal sinus rhythm Left axis deviation Minimal voltage criteria for LVH, may be normal variant ( [employer] product ) Inferior infarction , age undetermined Abnormal ECG Confirmed by Morgan Grover MD ([id number]), online content editor Yen Jeffery ([id number]) on 11/09/2023 6:21:32 AM Sodium 11/09/2023 142 Potassium 11/09/2023 3.9 Chloride 11/09/2023 107 CO2 11/09/2023 25 Anion Gap 11/09/2023 10 Glucose 11/09/2023 154 (H) BUN 11/09/2023 16 Creatinine 11/09/2023 1.22 eGFR 11/09/2023 61 BUN/Creatinine Ratio 11/09/2023 13.1 Calcium 11/09/2023 8.3 (L) High Sensitivity Troponi* 11/09/2023 45 (H) Lactate 11/09/2023 2.0 aPTT 11/09/2023 26.5 Protime 11/09/2023 13.0 INR 11/09/2023 0.9 ABO Group 11/09/2023 A Rh Type 11/09/2023 Negative Antibody Screen 11/09/2023 Negative IMAGING: X-ray of the left foot demonstrates an intra-articular fracture of the base of the left distal phalanx. There are cortical erosive changes at the tip of the left distal phalanx concerning for osteomyelitis. MRI of the left foot with and without contrast ordered and pending. Assessment: 78-year-old male with a left great toe wound. Plan of Care: -Patient discussed with Dr. Castro, who will see and evaluate patient. -N.p.o. at midnight for possible OR tomorrow. -Preoperative studies ordered -MRI left foot with and without contrast ordered and pending. -Noninvasive vascular studies ordered and pending. -Appreciate preoperative optimization per medical team. -Wound care team has been consulted, appreciate assistance. -Patient to remain heel weightbearing weightbearing about the left lower extremity. -Pain management and DVT prophylaxis per medical team -Disposition: Pending MRI results and discussion with the patient about treatment options since he resides in [place]. Please see the orthopedic attending, Dr. Castro's note for further updates to plan of care. The patient was discussed with the orthopedic attending occupational psychologist, Milan Castro MD, who is in agreement with plan of care at this time. Meghan Shane PA-C Orthopaedic Trauma [phone] [employer] Phone: [phone] History and physical note* Sabrina Bailey, - 11/09/2023 3:40 AM EDT Images from the original note were not included. History and Physical Date of Admission 11/08/2023 PCP Alisia Rees MD Chief Complaint/Visit Reason Left toe swelling, lower extremity edema, dyspnea History Of Present Illness Yoni Villalpando is a 78 y.o. male with a history of COPD, chronic diastolic CHF, CAD, GERD, hypertension, gout, remote history of DVT among other comorbidities who presents with multiple complaints including bilateral lower extremity edema, left toe wound that has worsened in appearance as well as shortness of breath. He states that about 10 to 12 days ago, he hit his toe while helping his get around. He was seen at urgent care on 10/30/2023, there was purulence seen at that time. He was transferred to [facility]. He was evaluated there and prescribed oral antibiotics. He states that there was some improvement in the symptoms however he has noticed increased swelling in his lower extremities and as well as his toe. This prompted him to come to the ED. He also has COPD and has been little bit more short of breath as well. Upon arrival to ED, vitals were significant for mild hypertension. Labs significant for elevated lactate 2.2. BNP 316. Troponin 44. CRP 2.3. WBC 4.0. Platelets 139. ESR 39. CXR showed peribronchial cuffing which can be seen in bronchitis as well as increased interstitial markings at the lung bases.Left foot x-ray showed lucency comminuted fracture of the great toe which may be secondary to osteomyelitis versus posttraumatic fracture. He was given IV vancomycin, Zosyn, Decadron, as well as IV Lasix and admitted to [facility]. Review of Systems All other systems reviewed and are negative. Past Medical History: Diagnosis Date COPD (chronic obstructive pulmonary disease) ([facility]) Hypertension History reviewed. No pertinent surgical history. Family History Problem Relation Name Age of Onset Lung cancer Brother Social History Tobacco Use Smoking status: Former Types: Cigarettes Smokeless tobacco: Never Allergies No Known Allergies Home Medications Current Outpatient Medications Medication Instructions albuterol HFA (PROAIR HFA ; PROVENTIL HFA ; VENTOLIN HFA) 90 mcg/actuation inhaler 2 puffs, inhalation, Every 6 hours PRN amLODIPine (NORVASC) 5 mg, oral, Daily aspirin 81 mg, oral, Daily carvediloL (COREG) 3.125 mg, oral, 2 times daily with meals cholecalciferol (VITAMIN D-3) 50,000 Units, oral, Weekly dutasteride (AVODART) 0.5 mg, oral, Daily fluticasone propion-salmeteroL (ADVAIR DISKUS) 100-50 mcg/dose diskus inhaler 1 puff, inhalation, 2times daily, Rinse mouth with water after use to reduce aftertaste and incidence of candidiasis. Donot swallow. furosemide (LASIX) 40 mg, oral, Daily oxyCODONE (ROXICODONE) 5 mg, oral, Every 4 hours PRN pantoprazole (PROTONIX) 40 mg, oral, Every morning before breakfast, Do not crush, chew, or split. potassium chloride (KLOR-CON M15) 15 mEq CR tablet 15 mEq, oral, Daily, Do not crush or chew. rOPINIRole (REQUIP) 2 mg, oral, 2 times daily spironolactone (ALDACTONE) 25 mg, oral, Daily tamsulosin (FLOMAX) 0.4 mg, oral, Daily with breakfast, Capsules should be taken 30 minutes following the same meal each day. tiotropium (SPIRIVA) 18 mcg per inhalation capsule 1 capsule, inhalation, Daily valsartan (DIOVAN) 320 mg, oral, Daily Vitals and Physical Exam Patient Vitals for the past 24 hrs: BP Temp Temp src Pulse Resp SpO2 Height Weight 11/08/23 2330 -- -- -- 68 18 94 % -- -- 11/08/23 2106 (!) 169/78 36.7 C (98.1 F) Oral 68 18 94 % 1.778 m (70) 99.8 kg (220 lb) Body mass index is 31.57 kg/m . No intake or output data in the 24 hours ending 11/09/23 0340 Physical Exam Constitutional: General: He is not in acute distress. HENT: Head: Atraumatic. Mouth/Throat: Pharynx: Oropharynx is clear. Eyes: Conjunctiva/sclera: Conjunctivae normal. Cardiovascular: Rate and Rhythm: Normal rate and regular rhythm. Pulmonary: Effort: Pulmonary effort is normal. Comments: Faint wheezes, coarse breath sounds bilaterally Abdominal: General: There is no distension. Palpations: Abdomen is soft. Musculoskeletal: Comments: Bilateral lower extremity edema, 1+ pitting Neurological: General: No focal deficit present. Mental Status: He is alert and oriented to person, place, and time. Psychiatric: Mood and Affect: Mood normal. Behavior: Behavior normal. Recent Lab Results: Admission on 11/08/2023 Component Date Value Ref Range Status Sodium 11/08/2023 140 136 - 145 mmol/L Final Potassium 11/08/2023 4.2 3.6 - 5.1 mmol/L Final Chloride 11/08/2023 110 (H) 98 - 107 mmol/L Final CO2 11/08/2023 23 22 - 32 mmol/L Final Anion Gap 11/08/2023 7 6 - 18 Final Glucose 11/08/2023 144 (H) 70 - 99 mg/dL Final BUN 11/08/2023 16 8 - 20 mg/dL Final Creatinine 11/08/2023 1.19 0.60 - 1.30 mg/dL Final eGFR 11/08/2023 63 >=60 mL/min/1.73m2 Final Calculation based on the Chronic Kidney Disease Epidemiology Collaboration (CKD- EPI) equation refitwithout adjustment for race. BUN/Creatinine Ratio 11/08/2023 13.4 12.0 - 20.0 Final Calcium 11/08/2023 8.0 (L) 8.9 - 10.3 mg/dL Final WBC 11/08/2023 4.0 (L) 4.6 - 10.2 K/mcL Final RBC 11/08/2023 4.24 (L) 4.30 - 5.70 M/mcL Final Hemoglobin 11/08/2023 12.9 (L) 13.5 - 17.5 g/dL Final Hematocrit 11/08/2023 39.4 39.0 - 49.0 % Final MCV 11/08/2023 92.9 80.0 - 97.0 FL Final MCH 11/08/2023 30.4 27.0 - 34.0 pcg Final MCHC 11/08/2023 32.7 30.8 - 35.3 g/dL Final RDW 11/08/2023 13.8 11.0 - 14.8 % Final Platelets 11/08/2023 139 (L) 142 - 424 K/mcL Final MPV 11/08/2023 11.0 6.2 - 12.1 FL Final Immature Platelet Fraction 11/08/2023 4.0 1.4 - 10.8 % Final Neutrophils Relative 11/08/2023 54.9 38.1 - 75.5 % Final Lymphocytes Relative 11/08/2023 33.9 17.9 - 49.6 % Final Monocytes Relative 11/08/2023 9.4 0.0 - 12.0 % Final Eosinophils Relative 11/08/2023 1.0 0.0 - 7.0 % Final Basophils Relative 11/08/2023 0.3 0.0 - 2.0 % Final Immature Granulocytes Relative 11/08/2023 0.5 0.0 - 1.2 % Final Neutrophils Absolute 11/08/2023 2.17 1.80 - 7.70 K/mcL Final Lymphocytes Absolute 11/08/2023 1.34 1.00 - 4.80 K/mcL Final Monocytes Absolute 11/08/2023 0.37 0.00 - 0.90 K/mcL Final Eosinophils Absolute 11/08/2023 0.04 0.00 - 0.70 K/mcL Final Basophils Absolute 11/08/2023 0.01 0.00 - 0.20 K/mcL Final Immature Granulocytes Absolute 11/08/2023 0.02 0.00 - 0.10 K/mcL Final BNP 11/08/2023 316 (H) 0 - 100 pcg/mL Final High Sensitivity Troponin I 11/08/2023 44 (H) <20 ng/L Final Sed Rate 11/08/2023 39 (H) 0 - 15 mm/hr Final C-Reactive Protein 11/08/2023 2.3 (H) 0.0 - 1.0 mg/dL Final Lactate 11/08/2023 2.2 (H) 0.5 - 2.0 mmol/L Final Recent Imaging Findings: XR Chest 1 View Narrative: EXAMINATION TYPE: XR FOOT 3+ VIEWS LEFT, XR CHEST 1 VIEW DATE OF EXAM : 11/08/2023 10:54 PM HISTORY: fracture, COMPARISON: NONE FINDINGS: AP upright chest: (Place. There are increased interstitial markings at the lung bases. The upper lungs are clear. No pneumothorax is significant pleural effusion. Moderate cardiomegaly. Calcificationof thoracic aorta. Peribronchial cuffing. Impression: 1. Peribronchial cuffing which can be seen in bronchitis or asthma. 2. Increased interstitial markings at the lung bases. Recommend correlation with prior outside radiographs to determine chronicity. 3. Moderate cardiomegaly. Left foot: Diffuse soft tissue swelling about the distal calf, ankle and foot. There is soft tissueswelling of the great toe as well. There is lucency and comminuted fracture of the distal phalanx of the great toe. There is mild osteoarthritis. IMPRESSION: 1. Lucency comminuted fracture of the great toe. This may be due to posttraumatic fracture or due to osteomyelitis. Recommend clinical correlation. 2. Diffuse soft tissue swelling of the distal calf, ankle and foot. 3. Mild osteoarthritis. -------- FINAL REPORT -------- Dictated By: Vickey Joshi Dictated Date: 11/09/2023 00:06 Assigned Physician: Vickey Joshi Reviewed and Electronically Signed By: Vickey Joshi Signed Date: 11/09/2023 00:09 Workstation ID: [id number] Transcribed By: Self Edit Transcribed Date: 11/09/2023 00:06 XR Foot 3+ Views Left Narrative: EXAMINATION TYPE: XR FOOT 3+ VIEWS LEFT, XR CHEST 1 VIEW DATE OF EXAM : 11/08/2023 10:54 PM HISTORY: fracture, COMPARISON: NONE FINDINGS: AP upright chest: (Place. There are increased interstitial markings at the lung bases. The upper lungs are clear. No pneumothorax is significant pleural effusion. Moderate cardiomegaly. Calcificationof thoracic aorta. Peribronchial cuffing. Impression: 1. Peribronchial cuffing which can be seen in bronchitis or asthma. 2. Increased interstitial markings at the lung bases. Recommend correlation with prior outside radiographs to determine chronicity. 3. Moderate cardiomegaly. Left foot: Diffuse soft tissue swelling about the distal calf, ankle and foot. There is soft tissueswelling of the great toe as well. There is lucency and comminuted fracture of the distal phalanx of the great toe. There is mild osteoarthritis. IMPRESSION: 1. Lucency comminuted fracture of the great toe. This may be due to posttraumatic fracture or due to osteomyelitis. Recommend clinical correlation. 2. Diffuse soft tissue swelling of the distal calf, ankle and foot. 3. Mild osteoarthritis. -------- FINAL REPORT -------- Dictated By: Vickey Joshi Dictated Date: 11/09/2023 00:06 Assigned Physician: Vickey Joshi Reviewed and Electronically Signed By: Vickey Joshi Signed Date: 11/09/2023 00:09 Workstation ID: [id number] Transcribed By: Self Edit Transcribed Date: 11/09/2023 00:06 Impression: Yoni Villalpando is a 78 y.o. male with a history of COPD, chronic diastolic CHF, CAD, GERD, hypertension, gout, remote history of DVT among other comorbidities who presents with multiple complaints including bilateral lower extremity edema, left toe wound that has worsened in appearance as well as shortness of breath. Upon arrival to ED, vitals were significant for mild hypertension. Labs significantfor elevated lactate 2.2. BNP 316. Troponin 44. CRP 2.3. WBC 4.0. Platelets 139. ESR 39. CXR showedperibronchial cuffing which can be seen in bronchitis as well as increased interstitial markings atthe lung bases. Left foot x-ray showed lucency comminuted fracture of the great toe which may be sec ondary to osteomyelitis versus posttraumatic fracture. He was given IV vancomycin, Zosyn, Decadron,as well as IV Lasix and admitted to [facility]. Diagnoses: Comminuted fracture of left great toe, cannot exclude osteomyelitis Left toe wound Cellulitis of left lower extremity Elevated lactate Suspected COPD exacerbation Chronic diastolic CHF, possible acute exacerbation Elevated troponin, likely secondary to demand ischemia Thrombocytopenia, mild. Acute on chronic Anemia, normocytic, chronic CAD GERD Hypertension Gout Remote history of DVT Plan: Admit to [facility] on telemetry Patient was given IV vancomycin and Zosyn in ED. Given clinical stability, will hold off on furtherantibiotics for now. Follow blood cultures obtained in ED Trend lactate Check MRI of the left foot Orthopedic surgery consult NPO seen by orthopedic surgery Start prednisone 40 mg daily, scheduled bronchodilators. Unclear if there is also a component of CHF exacerbation. He received IV Lasix in the ED. Will check echocardiogram. Hold cardiology consult until echo reviewed. Wait on medication verification Moreno: none CVC: none DVT prophylaxis: SCD Blood Product Consent: Did not address Code Status: Full code, confirmed Disposition: EDOD 11/11/23 Sabrina Bailey DO [facility] ([facility]) [facility] [id number] History and physical note* Sabrina Bailey DO - 11/09/2023 3:40 AM EDT Images from the original note were not included. History and Physical Date of Admission 11/08/2023 PCP Alisia Rees MD Chief Complaint/Visit Reason Left toe swelling, lower extremity edema, dyspnea History Of Present Illness Yoni Villalpando is a 78 y.o. male with a history of COPD, chronic diastolic CHF, CAD, GERD, hypertension, gout, remote history of DVT among other comorbidities who presents with multiple complaints including bilateral lower extremity edema, left toe wound that has worsened in appearance as well as shortness of breath. He states that about 10 to 12 days ago, he hit his toe while helping his get around. He was seen at urgent care on 10/30/2023, there was purulence seen at that time. He was transferred to [facility]. He was evaluated there and prescribed oral antibiotics. He states that there was some improvement in the symptoms however he has noticed increased swelling in his lower extremities and as well as his toe. This prompted him to come to the ED. He also has COPD and has been little bit more short of breath as well. Upon arrival to ED, vitals were significant for mild hypertension. Labs significant for elevated lactate 2.2. BNP 316. Troponin 44. CRP 2.3. WBC 4.0. Platelets 139. ESR 39. CXR showed peribronchial cuffing which can be seen in bronchitis as well as increased interstitial markings at the lung bases.Left foot x-ray showed lucency comminuted fracture of the great toe which may be secondary to osteomyelitis versus posttraumatic fracture. He was given IV vancomycin, Zosyn, Decadron, as well as IV Lasix and admitted to [facility]. Review of Systems All other systems reviewed and are negative. Past Medical History: Diagnosis Date COPD (chronic obstructive pulmonary disease) (CMS/HCC) Hypertension History reviewed. No pertinent surgical history. Family History Problem Relation Name Age of Onset Lung cancer Brother Social History Tobacco Use Smoking status: Former Types: Cigarettes Smokeless tobacco: Never Allergies No Known Allergies Home Medications Current Outpatient Medications Medication Instructions albuterol HFA (PROAIR HFA ; PROVENTIL HFA ; VENTOLIN HFA) 90 mcg/actuation inhaler 2 puffs, inhalation, Every 6 hours PRN amLODIPine (NORVASC) 5 mg, oral, Daily aspirin 81 mg, oral, Daily carvediloL (COREG) 3.125 mg, oral, 2 times daily with meals cholecalciferol (VITAMIN D-3) 50,000 Units, oral, Weekly dutasteride (AVODART) 0.5 mg, oral, Daily fluticasone propion-salmeteroL (ADVAIR DISKUS) 100-50 mcg/dose diskus inhaler 1 puff, inhalation, 2times daily, Rinse mouth with water after use to reduce aftertaste and incidence of candidiasis. Donot swallow. furosemide (LASIX) 40 mg, oral, Daily oxyCODONE (ROXICODONE) 5 mg, oral, Every 4 hours PRN pantoprazole (PROTONIX) 40 mg, oral, Every morning before breakfast, Do not crush, chew, or split. potassium chloride (KLOR-CON M15) 15 mEq CR tablet 15 mEq, oral, Daily, Do not crush or chew. rOPINIRole (REQUIP) 2 mg, oral, 2 times daily spironolactone (ALDACTONE) 25 mg, oral, Daily tamsulosin (FLOMAX) 0.4 mg, oral, Daily with breakfast, Capsules should be taken 30 minutes following the same meal each day. tiotropium (SPIRIVA) 18 mcg per inhalation capsule 1 capsule, inhalation, Daily valsartan (DIOVAN) 320 mg, oral, Daily Vitals and Physical Exam Patient Vitals for the past 24 hrs: BP Temp Temp src Pulse Resp SpO2 Height Weight 11/08/23 2330 -- -- -- 68 18 94 % -- -- 11/08/23 2106 (!) 169/78 36.7 C (98.1 F) Oral 68 18 94 % 1.778 m (70) 99.8 kg (220 lb) Body mass index is 31.57 kg/m . No intake or output data in the 24 hours ending 11/09/23 0340 Physical Exam Constitutional: General: He is not in acute distress. HENT: Head: Atraumatic. Mouth/Throat: Pharynx: Oropharynx is clear. Eyes: Conjunctiva/sclera: Conjunctivae normal. Cardiovascular: Rate and Rhythm: Normal rate and regular rhythm. Pulmonary: Effort: Pulmonary effort is normal. Comments: Faint wheezes, coarse breath sounds bilaterally Abdominal: General: There is no distension. Palpations: Abdomen is soft. Musculoskeletal: Comments: Bilateral lower extremity edema, 1+ pitting Neurological: General: No focal deficit present. Mental Status: He is alert and oriented to person, place, and time. Psychiatric: Mood and Affect: Mood normal. Behavior: Behavior normal. Recent Lab Results: Admission on 11/08/2023 Component Date Value Ref Range Status Sodium 11/08/2023 140 136 - 145 mmol/L Final Potassium 11/08/2023 4.2 3.6 - 5.1 mmol/L Final Chloride 11/08/2023 110 (H) 98 - 107 mmol/L Final CO2 11/08/2023 23 22 - 32 mmol/L Final Anion Gap 11/08/2023 7 6 - 18 Final Glucose 11/08/2023 144 (H) 70 - 99 mg/dL Final BUN 11/08/2023 16 8 - 20 mg/dL Final Creatinine 11/08/2023 1.19 0.60 - 1.30 mg/dL Final eGFR 11/08/2023 63 >=60 mL/min/1.73m2 Final Calculation based on the Chronic Kidney Disease Epidemiology Collaboration (CKD- EPI) equation refitwithout adjustment for race. BUN/Creatinine Ratio 11/08/2023 13.4 12.0 - 20.0 Final Calcium 11/08/2023 8.0 (L) 8.9 - 10.3 mg/dL Final WBC 11/08/2023 4.0 (L) 4.6 - 10.2 K/mcL Final RBC 11/08/2023 4.24 (L) 4.30 - 5.70 M/mcL Final Hemoglobin 11/08/2023 12.9 (L) 13.5 - 17.5 g/dL Final Hematocrit 11/08/2023 39.4 39.0 - 49.0 % Final MCV 11/08/2023 92.9 80.0 - 97.0 FL Final MCH 11/08/2023 30.4 27.0 - 34.0 pcg Final MCHC 11/08/2023 32.7 30.8 - 35.3 g/dL Final RDW 11/08/2023 13.8 11.0 - 14.8 % Final Platelets 11/08/2023 139 (L) 142 - 424 K/mcL Final MPV 11/08/2023 11.0 6.2 - 12.1 FL Final Immature Platelet Fraction 11/08/2023 4.0 1.4 - 10.8 % Final Neutrophils Relative 11/08/2023 54.9 38.1 - 75.5 % Final Lymphocytes Relative 11/08/2023 33.9 17.9 - 49.6 % Final Monocytes Relative 11/08/2023 9.4 0.0 - 12.0 % Final Eosinophils Relative 11/08/2023 1.0 0.0 - 7.0 % Final Basophils Relative 11/08/2023 0.3 0.0 - 2.0 % Final Immature Granulocytes Relative 11/08/2023 0.5 0.0 - 1.2 % Final Neutrophils Absolute 11/08/2023 2.17 1.80 - 7.70 K/mcL Final Lymphocytes Absolute 11/08/2023 1.34 1.00 - 4.80 K/mcL Final Monocytes Absolute 11/08/2023 0.37 0.00 - 0.90 K/mcL Final Eosinophils Absolute 11/08/2023 0.04 0.00 - 0.70 K/mcL Final Basophils Absolute 11/08/2023 0.01 0.00 - 0.20 K/mcL Final Immature Granulocytes Absolute 11/08/2023 0.02 0.00 - 0.10 K/mcL Final BNP 11/08/2023 316 (H) 0 - 100 pcg/mL Final High Sensitivity Troponin I 11/08/2023 44 (H) <20 ng/L Final Sed Rate 11/08/2023 39 (H) 0 - 15 mm/hr Final C-Reactive Protein 11/08/2023 2.3 (H) 0.0 - 1.0 mg/dL Final Lactate 11/08/2023 2.2 (H) 0.5 - 2.0 mmol/L Final Recent Imaging Findings: XR Chest 1 View Narrative: EXAMINATION TYPE: XR FOOT 3+ VIEWS LEFT, XR CHEST 1 VIEW DATE OF EXAM : 11/08/2023 10:54 PM HISTORY: fracture, COMPARISON: NONE FINDINGS: AP upright chest: (Place. There are increased interstitial markings at the lung bases. The upper lungs are clear. No pneumothorax is significant pleural effusion. Moderate cardiomegaly. Calcificationof thoracic aorta. Peribronchial cuffing. Impression: 1. Peribronchial cuffing which can be seen in bronchitis or asthma. 2. Increased interstitial markings at the lung bases. Recommend correlation with prior outside radiographs to determine chronicity. 3. Moderate cardiomegaly. Left foot: Diffuse soft tissue swelling about the distal calf, ankle and foot. There is soft tissueswelling of the great toe as well. There is lucency and comminuted fracture of the distal phalanx of the great toe. There is mild osteoarthritis. IMPRESSION: 1. Lucency comminuted fracture of the great toe. This may be due to posttraumatic fracture or due to osteomyelitis. Recommend clinical correlation. 2. Diffuse soft tissue swelling of the distal calf, ankle and foot. 3. Mild osteoarthritis. -------- FINAL REPORT -------- Dictated By: Vickey Joshi Dictated Date: 11/09/2023 00:06 Assigned Physician: Vickey Joshi Reviewed and Electronically Signed By: Vickey Joshi Signed Date: 11/09/2023 00:09 Workstation ID: [id number] Transcribed By: Self Edit Transcribed Date: 11/09/2023 00:06 XR Foot 3+ Views Left Narrative: EXAMINATION TYPE: XR FOOT 3+ VIEWS LEFT, XR CHEST 1 VIEW DATE OF EXAM : 11/08/2023 10:54 PM HISTORY: fracture, COMPARISON: NONE FINDINGS: AP upright chest: (Place. There are increased interstitial markings at the lung bases. The upper lungs are clear. No pneumothorax is significant pleural effusion. Moderate cardiomegaly. Calcificationof thoracic aorta. Peribronchial cuffing. Impression: 1. Peribronchial cuffing which can be seen in bronchitis or asthma. 2. Increased interstitial markings at the lung bases. Recommend correlation with prior outside radiographs to determine chronicity. 3. Moderate cardiomegaly. Left foot: Diffuse soft tissue swelling about the distal calf, ankle and foot. There is soft tissueswelling of the great toe as well. There is lucency and comminuted fracture of the distal phalanx of the great toe. There is mild osteoarthritis. IMPRESSION: 1. Lucency comminuted fracture of the great toe. This may be due to posttraumatic fracture or due to osteomyelitis. Recommend clinical correlation. 2. Diffuse soft tissue swelling of the distal calf, ankle and foot. 3. Mild osteoarthritis. -------- FINAL REPORT -------- Dictated By: Vickey Joshi Dictated Date: 11/09/2023 00:06 Assigned Physician: Vickey Joshi Reviewed and Electronically Signed By: Vickey Joshi Signed Date: 11/09/2023 00:09 Workstation ID: [id number] Transcribed By: Self Edit Transcribed Date: 11/09/2023 00:06 Impression: Yoni Villalpando is a 78 y.o. male with a history of COPD, chronic diastolic CHF, CAD, GERD, hypertension, gout, remote history of DVT among other comorbidities who presents with multiple complaints including bilateral lower extremity edema, left toe wound that has worsened in appearance as well as shortness of breath. Upon arrival to ED, vitals were significant for mild hypertension. Labs significantfor elevated lactate 2.2. BNP 316. Troponin 44. CRP 2.3. WBC 4.0. Platelets 139. ESR 39. CXR showedperibronchial cuffing which can be seen in bronchitis as well as increased interstitial markings atthe lung bases. Left foot x-ray showed lucency comminuted fracture of the great toe which may be sec ondary to osteomyelitis versus posttraumatic fracture. He was given IV vancomycin, Zosyn, Decadron,as well as IV Lasix and admitted to [facility]. Diagnoses: Comminuted fracture of left great toe, cannot exclude osteomyelitis Left toe wound Cellulitis of left lower extremity Elevated lactate Suspected COPD exacerbation Chronic diastolic CHF, possible acute exacerbation Elevated troponin, likely secondary to demand ischemia Thrombocytopenia, mild. Acute on chronic Anemia, normocytic, chronic CAD GERD Hypertension Gout Remote history of DVT Plan: Admit to [facility] on telemetry Patient was given IV vancomycin and Zosyn in ED. Given clinical stability, will hold off on furtherantibiotics for now. Follow blood cultures obtained in ED Trend lactate Check MRI of the left foot Orthopedic surgery consult NPO seen by orthopedic surgery Start prednisone 40 mg daily, scheduled bronchodilators. Unclear if there is also a component of CHF exacerbation. He received IV Lasix in the ED. Will check echocardiogram. Hold cardiology consult until echo reviewed. Wait on medication verification Moreno: none CVC: none DVT prophylaxis: SCD Blood Product Consent: Did not address Code Status: Full code, confirmed Disposition: EDOD 11/11/23 Sabrina Bailey DO [facility] ([facility]) documented in this encounterAmerican Academic Health [id number] Note* Addendum Note - Emelia Gresham MA - 10/30/2023 1:21 PM EDTAddended by: EMELIA GRESHAM on: 10/30/2023 01:21 PM Modules accepted: Orders [facility]09-17-2024 Miscellaneous Notes* Addendum Note - Emelia Gresham MA - 10/30/2023 1:21 PM EDTAddended by: EMELIA GRESHAM on: 10/30/2023 01:21 PM Modules accepted: Orders documented in this encounterOhio State Health System09-17-2024 NoteHNO ID: [id number] Author: AAKASH JIANG APRN.OUTDOOR GUIDE Service: ? Author Type: Nurse Practitioner Type: Progress Notes Filed: 10/30/2023 13:07 Note Text: On evaluation patient's left great toe is erythematous and purulent looking on the distal half. On the plantar aspect it appears as though approximately half of the pad of the great toe is eroded away. There is surrounding erythema extending back into the left foot. Patient does not think he is diabetic but does note he has a nonhealing wound on the other foot also. He states that he thinks he injured it about a week ago pushing a wheelchair however to me that the wound looks as though it is more chronic than that. I explained to patient my concern for sepsis and osteomyelitis and the need for further evaluation at a facility with higher level of care and patient will self transport to [facility]. Patient otherwise is nontoxic-appearing.[facility]09-17-2024 History of Present illness Narrative* Aakash Jiang APRN.CNP - 10/30/2023 12:40 PM EDT On evaluation patient's left great toe is erythematous and purulent looking on the distal half. On the plantar aspect it appears as though approximately half of the pad of the great toe is eroded away. There is surrounding erythema extending back into the left foot. Patient does not think he is diabetic but does note he has a nonhealing wound on the other foot also. He states that he thinks he injured it about a week ago pushing a wheelchair however to me that the wound looks as though it is more chronic than that. I explained to patient my concern for sepsis and osteomyelitis and the need for further evaluation at a facility with higher level of care and patient will self transport to [facility]. Patient otherwise is nontoxic-appearing. documented in this encounterOhio State Health System11-28-2023 History of Present illness Narrative* Miguelina Mccain RN - 01/09/2023 2:09 PM EST Pt received verbal and printed discharge instructions in their preferred language. All discharge medications have been reviewed and confirmed with the patient. Patient was educated on signs and symptoms of worsening condition and instructed to contact emergency services if life-threatening symptomsoccur. Patient verbally accepts discharge plan and all questions and concerns have been answered. Pt expresses comprehension of follow up care. * Miguelina Mccain RN - 01/09/2023 1:17 PM EST Goals: Identify possible barriers to meeting goals/advancing plan of care: continuity of care gunner Corcoran PCP in [place]. Stability of the patient: Moderately Stable - Low risk of patient condition declining or worsening End of Shift Summary: discharge order in place * Swati Mansfield RN - 01/09/2023 11:57 AM EST 01/09/23 1157 Transportation Transportation at discharge Family Final Discharge Disposition Home or Self Care Case Management Discharge Note Coordination of Care Handover Yoni Villalpando : 1945 Living Arrangements: Spouse/significant other Support Systems: Spouse/significant other, Children Decision-Making Is patient own decision maker?: Yes Do we have authorization to contact this patient's emergency contact?: Yes Extended Emergency Contact Information Primary Emergency Contact: Hailey Villalpando Mobile Relation: Spouse Preferred language: [place]i Manufacturers Representative needed? No SIOH Flowsheet Completed?: Yes, no needs at this time Medication Affordability : No concerns related to payment for meds Medical Admission Information Main Diagnosis: Fever Past Medical History: Diagnosis Date COPD (chronic obstructive pulmonary disease) ([facility]) Hypertension Discharge Information Final Discharge Disposition: (P) Home or Self Care N/A Facility Phone Numbers for report: N/A Transportation at discharge: (P) Family // // Discharge plan communicated with patient and all are in agreement with discharge plan. DME on admission: Assistive Devices: None (DME provider is: N/A) DME ordered @ discharge: None Community Service(s) on admission: None New Community Referrals made to: None Discharge concerns: None Narrative Note : The patient has an order to discharge home. He will drive back to [place] and schedule O/P follow up with his physicians there. 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 No other needs identified. Case closed. Miscellaneous Information Vitals @ Discharge: Visit Vitals BP (!) 145/69 (Patient Position: Lying) Pulse 58 Temp 36.6 C (97.9 F) (Oral) Resp 18 Ht 1.778 m (70) Wt 96.1 kg (211 lb 12.8 oz) SpO2 92% BMI 30.39 kg/m Smoking Status Former BSA 2.14 m Diet Orders: Dietary Orders (From admission, onward) Start Ordered 01/07/23 0201 Adult diet [facility]; General; Regular Diet effective now Question Answer Comment Location [facility] Diet Type (req) General General Diet Regular 01/07/23 0200 Allergies: No Known Allergies Mobility Status: Mobility: Immobilized/requires assist of one person Readmission Risk Score @ Discharge: Predictive Model Details 10% (Low) Factor Value Calculated 01/09/2023 08:13 Number of active inpatient medication orders 46 IP Risk of Unplanned Readmission Model Active NSAID inpatient medication order present Number of ED visits in last six months 2 Latest calcium low (8.1 mg/dL) Imaging order present in last 6 months Latest hemoglobin low (9.7 g/dL) Age 77 Active anticoagulant inpatient medication order present Current length of stay 2.362 days Active ulcer inpatient medication order present * Swati Mansfield RN - 01/09/2023 7:28 AM EST 01/09/23 0728 Initial Transition Plan Initial Transition Plan Home Back up Transition Plan Back up Transition plan Home Health Care Transportation Transportation at discharge Family The patient remained afebrile and Ortho has signed off. Plan to discharge home with outpatient follow up in [place]. Anticipate discharge later today. CM will continue to follow. * ZAIN Duarte - 01/09/2023 5:56 AM EST ORTHOPEDIC PROGRESS NOTE Subjective Patient seen and evaluated at bedside. No acute changes overnight from an orthopedic standpoint. Patient states his right knee pain continues to improve. Denies any new anesthesias or paresthesias about his right lower extremity. Patient was seen by wound care yesterday for his right foot ulcer. Vital signs in last 24 hours: Temp: 37.5 C (99.5 F) (01/09 541) Heart Rate: 66 (01/09 541) Resp: 18 (01/08 2229) BP: 136/73 (01/09 541) Recent Results: Lab Results Component Value Date WBC 6.7 01/08/2023 HGB 10.5 (L) 01/08/2023 HCT 32.8 (L) 01/08/2023 MCV 95.3 01/08/2023 PLT 142 01/08/2023 Lab Results Component Value Date GLUCOSE 93 01/08/2023 CALCIUM 7.6 (L) 01/08/2023 NA 138 01/08/2023 K 3.6 01/08/2023 CO2 24 01/08/2023 CL 109 (H) 01/08/2023 BUN 21 (H) 01/08/2023 CREATININE 1.18 01/08/2023 Physical Exam: Gen: Awake and alert. Lying bed. No acute distress. Right lower extremity: Skin intact. Cellulitis continues to improve from the previously marked area. No significant right knee pain. No effusion palpated. Dressing in place over the right foot ulcer from the wound care team. He is able to flex his right knee from 0 to approximately 100 degrees without significant pain. Actively dorsiflexes/plantarflexes right ankle. Fires FHL/EHL, and motors lesser toes well. Sensation intact to light touch in the sural, saphenous, deep peroneal, superficial peroneal, tibial nerve distributions. Foot warm and well-perfused. Assessment: Yoni Villalpando is a 77 y.o. male with right knee pain and cellulitis and right lateral foot ulcer. Plan of Care: -Continue nonoperative management with conservative treatment. -Right knee aspirate cultures are negative x 24 hours. Will follow to completion. -IV antibiotics per primary. -Weightbearing as tolerated and range of motion as tolerated right lower extremity. -PT/OT -Pain control per primary. -Disposition: Okay to discharge from an orthopedic standpoint. -Follow-up with orthopedics in [place] as well as wound care. ZAIN Sawyer-C Orthopaedic Trauma [phone] * Miguelina Mccain RN - 01/08/2023 4:48 PM EST Goals: Identify possible barriers to meeting goals/advancing plan of care: age Stability of the patient: Moderately Stable - Low risk of patient condition declining or worsening End of Shift Summary: Pt reports feeling better * Nathalia MaldonadoD - 01/08/2023 2:43 PM EST Pharmacokinetic Consult - Vancomycin Dosing Day #2 Yoni Villalpando is a 77 year old male who presented for evaluation of worsening right knee pain, swelling, fever and chills. PMH includes significant history of COPD, CHF, PVD, remote history of DVT not on anticoagulation. The patient has had non-healing ulcer in his right foot and following with a wound doctor. More recently the patient fell into the wall 5 days prior to arrival resulting in injury to his right elbow and right knee. Patient came to the ED 1 day prior to current admission for evaluation but was discharged home on Keflex since imaging was negative for any fractures. Unfortunately after being discharged from the ED the patient has been experiencing fever, chills as well has generalized malaise and he returned to the emergency department. Blood cultures were obtained in the ED. Patient was started on vancomycin and Zosyn now changed to vancomycin and ceftriaxone 2g. So far allcultures negative. Ortho not certain of osteo, treating conservatively with antibiotics and wound care, potentially PO antibiotics at discharge if patient continues to improve. Past Medical History: Diagnosis Date COPD (chronic obstructive pulmonary disease) ([facility]) Hypertension Allergies as of 01/06/2023 (No Known Allergies) Anti-infectives (From admission, onward) Start Dose/Rate Route Frequency Ordered Stop 01/07/23 1500 vancomycin (VANCOCIN) 750 mg in sodium chloride 0.9 % 250 mL IVPB 750 mg 250 mL/hr over 60 Minutes intravenous Every 12 hours 01/07/23 0026 01/12/23 1459 01/07/23 0200 cefTRIAXone (ROCEPHIN) IV syringe 2 g 2 g 400 mL/hr over 3 Minutes intravenous Every 24 hours 01/07/23 0200 01/12/23 0229 Recent Labs 01/06/23 1936 01/07/23 0451 01/07/23 0457 01/08/23 0355 WBC 11.4* -- 7.3 6.7 LACTATE 1.1 -- -- -- CREATININE 1.26 1.79* -- 1.18 BUN 17 29* -- 21* Estimated Creatinine Clearance: 62.9 mL/min (by C-G formula based on SCr of 1.18 mg/dL). Intake/Output Summary (Last 24 hours) at 01/08/2023 1415 Last data filed at 01/08/2023 0218 Gross per 24 hour Intake 2981.67 ml Output 0 ml Net 2981.67 ml Visit Vitals BP (!) 168/81 Pulse 78 Temp 37 C (98.6 F) (Oral) Resp 16 Ht 1.778 m (70) Wt 96.1 kg (211 lb 12.8 oz) SpO2 92% BMI 30.39 kg/m Smoking Status Former BSA 2.14 m Temp (24hrs), Av.7 C (99.8 F), Min:36.7 C (98.1 F), Max:39.4 C (102.9 F) [place] body weight: 73 kg (160 lb 15 oz) Adjusted ideal body weight: 82.2 kg (181 lb 4.5 oz) Weight: 95.3 kg BMI: 30.13 kg/m2 Microbiology 01/06 blood culture (2) - no growth at 24 hours 01/06 aspirate from right knee - no growth at 24 hours Assessment and Plan Patient given vancomycin loading dose 2500 mg given in the ER @ 01/06 then started on maintenance dose of 750 mg every 12 hours estimating an AUC 418 with a predicted peak= 23 and a predicted trough = 12.96. Will order peak and trough for tomorrow for level assessment, peak ordered at 0500, trough ordered for 1400. Pharmacy will continue to to monitor for s/sx of nephrotoxicity, culture results, and clinical progress. Thank you, Isidro Pool PharmD * Lien Pierre OT - 01/08/2023 11:18 AM EST Patient: Yoni Villalpando Age: 77 y.o. Sex: male Fever [facility] Occupational Therapy Evaluation Multi-Disciplinary Rounding Report Ambulation: Functional Mobility Walking Assistance: Close supervision, Independent Device: No device PLOF: Level of Guion: Independent with mobility and functional transfers Lives With: Spouse Type of Home: House Home Adaptive Equipment: Walker - rolling, Cane, Wheelchair-manual, Crutches Bathroom Equipment: None Home Layout: One level Home Access: Stairs to enter without rails (pt son's house has steps, pt house in [place] no steps from garage) DME Needs: OT Discharge Recommendation: Home independent Reason for current recommendation: no needs SUBJECTIVE Past Medical History: Diagnosis Date COPD (chronic obstructive pulmonary disease) ([facility]) Hypertension History reviewed. No pertinent surgical history. OBJECTIVE Precautions: Precautions Medical Precautions: (none) Safety Interventions: Call peña within reach, ID band on Vitals/Pain: Oxygen Therapy Oxygen Therapy: None (Room air) Pain Assessment Pain Assessment: No/denies pain Pain Score: 0 - No pain Home Living: Home Living Type of Home: House Lives With: Spouse Home Adaptive Equipment: Walker - rolling, Cane, Wheelchair-manual, Crutches Home Layout: One level Home Access: Stairs to enter without rails (pt son's house has steps, pt house in [place] no steps from garage) Entrance Stairs-Number of Steps: 2-3 Bathroom Shower/Tub: Tub/shower unit, Walk-in shower Bathroom Toilet: Standard Bathroom Equipment: None Prior Function: Prior Function Level of Guion: Independent with mobility and functional transfers Do you drive?: Yes Vocational: Retired Which is your dominant hand?: Right Prior ADL/IADL History: ADL/IADL History ADL Assistance (Self Care): Independent Homemaking Assistance (Functional Cognition): Independent General Assessments: ADL Grooming Assistance: Independent LE Dressing Assistance: Modified independent (Device) Bed Mobility Sitting to Lying Assistance: Independent Lying to Sitting Assistance: Independent Functional Transfers Sit to Stand Assistance: Independent Toilet Transfer Assistance: Independent Functional Mobility Walking Assistance: Close supervision, Independent Device: No device Cognitive Status: Cognition Orientation Level: Oriented X4 Perception Inattention/Neglect: Appears intact Initiation: Appears intact Motor Planning: Appears intact Proprioception Proprioception: No apparent deficits Extremity Assessments: Hand Function Gross Grasp: Functional Coordination Coordination: Functional RUE Assessment RUE Assessment: Within Functional Limits LUE Assessment LUE Assessment: Within Functional Limits ASSESSMENT O.T. evkath completed. Pt admitted due to R knee pain and R nonhealing foot ulcer. Per ortho non-operative management. Pt alert and oriented times 4. Pt within functional limits bilateral UE strength and ROM. Pt independent level with ADL tasks without device. Pt supine in bed at end of session with needs in reach and RN notified with pt present. O.T. recommend pt discharge with no further O.T. services. O.T. eval only due to pt independent. AM-PAC Inpatient Daily Activity Short Form Scoring Form: Unable: 1 A Lot: 2 A Little: 3 None: 4 How much help from another person does the patient currently need? Putting on and taking off regular lower body clothing? [] [] [] [x] Bathing (including washing, rinsing, drying)? [] [] [] [x] Toileting, which includes using toilet, bedpan, or urinal? [] [] [] [x] Putting on and taking off regular upper body clothing? [] [] [] [x] Personal grooming such as brushing teeth? [] [] [] [x] Eating meals? [] [] [] [x] Score: OT Assessment OT Assessment/ Barriers to Discharge: (none) Prognosis: Good Evaluation/Treatment Tolerance: Patient tolerated treatment well Medical Staff Made Aware: Yes Comments: RN notified PLAN Acute Care Plan: Treatment Interventions: Patient/family training, Equipment evaluation/education OT Plan: No skilled OT OT Discharge Recommendations: Home independent Encounter Problems Encounter Problems (Active) There are no active problems. Encounter Problems (Resolved) There are no resolved problems. EDUCATION Education Documentation No documentation found. Education Comments No comments found. * Ken Donato DO - 01/08/2023 10:43 AM EST Images from the original note were not included. Progress Note Chief Complaint/Visit Reason: The pain Impression: Yoni Villalpando is a 77 y.o. male with past medical history of COPD, hypertension, heart failure, PAD, remote hx of DVT, and gout who presents to [facility] ED on 01/06/2023 for evaluation of worsening right knee pain, swelling, fever and chills. On arrival to the emergency department the patient was febrile with temperature 102.9 F, Hypertensive and on room air. Laboratory results significant for CRP 32.6, WBC 11.4 with left shift, ESR 104. X-ray of the right foot without radiologic findings to suggest acute osteomyelitis. Right knee x-raynegative for acute fractures or dislocation. Blood cultures were obtained in the ED. Patient was started on vancomycin and Zosyn and admitted to [facility] with a consultation to orthopedic surgery. Patientunderwent bedside arthrocentesis in the ED and fluid analysis and cultures were sent. So far all cultures negative. Diagnoses: Sepsis, present on admission secondary to below Acute right knee pain, concerning for septic joint vs. Acute crystalopathy Chronic nonhealing right foot ulcer JUAN Hx of Gout PAD Hypertension Hyperlipidemia Remote history of DVT COPD Plan: Patient continues to have fevers, will continue aggressive broad-spectrum antibiotics Appreciate input from the orthopedic team who does not feel osteomyelitis is present Appreciate input from the wound care team At this time I am going to hold any discharge until he is afebrile for 24 hours, I discussed this with family and they are agreeable. Vascular studies are pending [place]: N/A CVC: N/A DVT prophylaxis: Lovenox Code Status: Full code Disposition: Hopefully discharge in next 24 hours if fevers resolve Ken oDnato, [facility] ([facility]) Subjective: Says he feels better. Has a good appetite. No real pain in his leg. Review of Systems All other systems reviewed and are negative. Vitals and Physical exam: Patient Vitals for the past 24 hrs: BP Temp Temp src Pulse Resp SpO2 Height Weight 01/08/23 0734 (!) 149/83 36.7 C (98.1 F) Oral 69 -- 94 % -- -- 01/08/23 0357 (!) 164/77 (!) 39.2 C (102.6 F) Oral 83 -- 90 % -- -- 01/08/23 0004 (!) 150/74 37.4 C (99.3 F) Oral 72 -- 93 % -- -- 01/07/232004 138/80 36.7 C (98.1 F) Oral 76 -- 90 % -- -- 01/07/23 1628 -- 37.1 C (98.7 F) -- -- 16 -- -- -- 01/07/23 1522 -- -- -- -- 16 -- -- -- 01/07/23 1517 (!) 167/77 (!) 39.4 C (102.9 F) Oral 86 16 92 % -- -- 01/07/23 1416 -- -- -- -- 16 -- -- -- 01/07/23 1410 -- -- -- -- -- -- 1.778 m (70) 96.1 kg (211 lb 12.8 oz) 01/07/23 1137 (!) 152/64 37.7 C (99.9 F) Axillary 75 18 92 % -- -- Body mass index is 30.39 kg/m . Intake/Output Summary (Last 24 hours) at 01/08/2023 1043 Last data filed at 01/08/2023 0218 Gross per 24 hour Intake 2981.67 ml Output 0 ml Net 2981.67 ml Physical Exam Vitals reviewed. Constitutional: General: He is not in acute distress. Appearance: Normal appearance. He is not ill-appearing. HENT: Head: Normocephalic. Cardiovascular: Rate and Rhythm: Normal rate and regular rhythm. Heart sounds: No murmur heard. Pulmonary: Effort: Pulmonary effort is normal. Breath sounds: Rhonchi present. Abdominal: General: Abdomen is flat. Bowel sounds are normal. Palpations: Abdomen is soft. Tenderness: There is no abdominal tenderness. There is no guarding. Musculoskeletal: Cervical back: Normal range of motion. Right lower leg: Edema present. Left lower leg: No edema. Skin: General: Skin is warm and dry. Comments: Erythema over his right leg but appears to be regressing Neurological: General: No focal deficit present. Mental Status: He is alert and oriented to person, place, and time. Mental status is at baseline. Psychiatric: Mood and Affect: Mood normal. Recent Lab Results: Results from last 7 days Lab Units 01/08/2335401/07/2345001/06/231935 SODIUM mmol/L 138 139 134* POTASSIUM mmol/L 3.6 3.7 4.1 CHLORIDE mmol/L 109* 106 100 CO2 mmol/L BUN mg/dL 21* 29* 17 CREATININE mg/dL 1.18 1.79* 1.26 Results from last 7 days Lab Units 01/08/2335401/07/2345601/06/231935 WBC AUTO K/mcL 6.7 7.3 11.4* HEMOGLOBIN g/dL 10.5* 11.1* 12.9* HEMATOCRIT % 32.8* 34.7* 39.6 PLATELETS K/mcL 142 127* 173 MCV FL 95.3 95.1 92.5 Recent Imaging Findings: MR Foot wo and w Contrast Right Narrative: MRI OF THE RIGHT FOOT WITHOUT AND WITH CONTRAST: 01/07/2023 8:50 AM COMPARISON: Plain radiographs of the right foot 01/06/2023 HISTORY: Wound within the right foot near the lateral aspect of the fifth metatarsal head. Fever and chills. Concern for osteomyelitis. TECHNIQUE: Multiplanar multisequence MR imaging of the right foot was performed prior to and following the administration of 20 mL of intravenous Dotarem contrast. FINDINGS: As identified on the preceding radiographs, there is a wound within the lateral aspect ofthe forefoot near the fifth metatarsal head, measuring approximately 1 cm in diameter. There is significant bone marrow edema and enhancement within the fifth metatarsal head. Some demineralization is noted in this region on the preceding radiographs. These findings are consistent with osteomyelitis. No abscess is identified in this region. There is mild degenerative arthritis involving the first MTP joint and the articulation between thefirst metatarsal head and medial hallux sesamoid, with reactive osseous edema. There is mild buniondeformity of the first metatarsal head, as well. The flexor and extensor tendons of the midfoot and forefoot are normal in thickness and signal. There is no jennifer tenosynovitis. The Lisfranc ligament is intact. Visualized portions of the plantar fascia are normal in thickness and signal. There is diffuse atrophy and edema of the visualized muscles, presumably reflecting denervation change related to peripheral neuropathy. There is diffuse subcutaneous edema within visualized portions of the foot, most pronounced dorsally. Impression: 1. Wound lying immediately lateral to the fifth metatarsal head with associated mild osteomyelitis involving the fifth metatarsal head. No abscess. No findings of septic arthritis involving the fifth MTP joint. 2. Significant subcutaneous edema within the foot, most mass dorsally. A large component edema likely reflects lymphedema, though I suspect that there is also a component of cellulitis within the lateral forefoot. 3. 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 4. Diffuse atrophy and edema of the intrinsic muscles of the foot, most likely reflecting denervation change related to peripheral neuropathy. -------- FINAL REPORT -------- Dictated By: Polo Casanova Dictated Date: 01/07/2023 09:44 Assigned Physician: Polo Casanova Reviewed and Electronically Signed By: Polo Casanova Signed Date: 01/07/2023 09:56 Workstation ID: [id number] Transcribed By: Self Edit Transcribed Date: 01/07/2023 09:44 Allergies: No Known Allergies * Swati Mansfield RN - 01/08/2023 8:05 AM EST 01/08/23 0805 Initial Transition Plan Initial Transition Plan Home Back up Transition Plan Back up Transition plan Home Health Care Transportation Transportation at discharge Family The patient is admitted with right foot ulcer and is on IV Rocephin. Ortho consulted and no interventions planned, will monitor wound and possible repeat MRI in the future. Wound team also consulted for recs. The patient lives in [place] and is here visiting family. He plans to returtn to [place] soon and will need f/u there for wound care. He is established with a Vascular physician there and will see if they can assist with a wound clinic referral in that area. He ambulated 200ft with therapy, has no new DME needs and family will transport on discharge. CM will continue to follow. * Porfirio Simon MD - 01/08/2023 7:37 AM EST Orthopedic Surgery Progress Note: Admission Date:01/06/2023 Admission Diagnosis:Cellulitis of right lower leg [L03.115] Effusion, right knee [M25.461] Subjective: 77-year-old gentleman with a significant history of peripheral vascular disease. Back in August he developed a ulceration to the lateral border of his right foot. This occurred down in [place]. He lives down there and was recently visiting [place]. He indicates he was seeing several physicians and nobody had a good answer for him regarding this ulceration. He does indicate because of his vascular disease he had a revascularization of his leg and that has led to some improvement in the healing of this ulcer over time. He had an acute fall where he struck his knee. His knee became erythematous and painful. He presented because of the knee issue to our hospital. His knee has been aspirated by our re sident and the aspirate is showing an incredibly low white cell count and no organisms to date and there are no concerns for septic knee arthritis based on early results. He was started on vancomycinand Zosyn and indicates marked improvement in his knee pain. Vitals: Temp: 36.7 C (98.1 F) (01/08 734) Heart Rate: 69 (01/08 734) Resp: 16 (01/07 1628) BP: 149/83 (01/08 734) Labs: Lab Results Component Value Date WBC 6.7 01/08/2023 HGB 10.5 (L) 01/08/2023 PLT 142 01/08/2023 Lab Results Component Value Date GLUCOSE 93 01/08/2023 CALCIUM 7.6 (L) 01/08/2023 NA 138 01/08/2023 K 3.6 01/08/2023 CO2 24 01/08/2023 CREATININE 1.18 01/08/2023 Lab Results Component Value Date CRP 32.6 (H) 01/06/2023 Exam: On clinical examination I can easily range his knee to 90 degrees and extended without significant pain. He has what looks to be resolving erythema over the knee and what I would consider a cellulitis versus prepatellar bursitis. Examination of the right foot shows that at the lateral aspect of the fifth metatarsal head there is a very superficial appearing ulcer. I do not appreciate that this probes to bone. Has a granular base. There is no erythema and no drainage. I have reviewed the imaging including plain films and MRI. Plain films of the knee are unremarkable. Plain films of the foot show soft tissue swelling in the area of the ulcer but no erosive changes of the metatarsal head on radiographs. The MRI shows slight reactive changes that could be from surrounding inflammation secondary to the ulcer. Radiologist comments on mild osteomyelitis Impression/Plan: Cellulitis of the right knee Ulceration of the right foot Regarding the cellulitis of the right knee his knee pain is improving considerably. There is no fracture on plain films. We have an aspiration which shows a white count well within normal limits and no organisms on Gram stain. We obviously would await definitive culture results but if there is no growth at 24 hours I would exclude septic arthritis here and if his knee is improving have him weightbearing as tolerated working on range of motion with outpatient follow-up with orthopedics. Regarding the right foot I am not convinced there is significant osteomyelitis here. The MRI may simply be overreading inflammatory changes in the area. I would certainly give this an attempt at conservative treatment including antibiotics and wound care. If the wound heals and he has no recurrenceand serial x-rays over time do not show erosive changes of bone then I would be inclined to consider the MRI and over read. If he did not respond then he would need a amputation of the terminal fifthwhich could be done at a later date given that he is not septic and the wound is improving on antibiotics. I would recommend once he stabilizes converting him to an appropriate oral regimen. I think he then needs weekly wound care through a erp specialist. Patient was planning on returning to [place] before this happened and he still plans to return to [place] in the very near future. It sounds like he was established at least with a vascular surgeon and I would recommend getting in with the wound care team down there. From an orthopedic standpoint there is nothing that we would acutely intervene on at this juncture and he can be discharged Please feel free to call me to coordinate care if necessary. Porfirio Simon MD [phone] cell * Viola Casas RN - 01/08/2023 2:44 AM EST Problem: Physical Regulation: Goal: Signs and symptoms of infection will decrease Outcome: Progressing Goal: Complications related to the disease process, condition or treatment will be avoided or minimized Outcome: Progressing Goal: Diagnostic test results will improve Outcome: Progressing Problem: Cognitive: Goal: Knowledge of disease or condition will improve Outcome: Progressing Problem: Falls: Goal: Patient will not fall or injure themselves during hospitalization. Outcome: Progressing Problem: Activity: Goal: Ability to ambulate will improve Outcome: Progressing Goal: Range of joint motion will be supported Outcome: Progressing Problem: Safety: Goal: Ability to safely transfer will improve Outcome: Progressing Problem: Physical Regulation: Goal: Ability to avoid complications of mobility impairment will improve Outcome: Progressing Goals: Identify possible barriers to meeting goals/advancing plan of care: pain, suboptimal mobility due to RLE cellulitis Stability of the patient: stable, moderate risk of clinical deterioration End of Shift Summary: progressing, continues IV ATBs * Lalitha Fierro RN - 01/07/2023 9:39 PM EST Checked on patient during rounds, patient did not want to be woken up for the virtual nurse rounds during the night, bedside nurse updated. * Kim Agarwal RN - 01/07/2023 6:25 PM EST Problem: Health Behavior: Goal: Patient Specific Outcome Outcome: Completed Goals: Patient will be discharged to home Identify possible barriers to meeting goals/advancing plan of care: Pain control Stability of the patient: Moderately Stable - Low risk of patient condition declining or worsening End of Shift Summary: Patient is experiencing minimal pain. * Pebbles Burgos RN - 01/07/2023 1:19 PM EST Case Management Initial Assessment Nursing Orientation Assessment: Neuro (WDL): Within Defined Limits Confirmed on CM assessment Patient Next of Kin / Surrogate Decision Maker is Spouse Hailey Decision-Making Is patient own decision maker?: Yes Insurance provider confirmed from chart: Yes and was correct Confirmed PCP: Alisia Rees Yes and was correct Confirmed Pharmacy :Yes and was correct [id number] - [address] AT [address] [address] Readmission Assessment Completed?: No, does not require readmission assessment. SIOH Flowsheet Completed?: Yes, no needs at this time Medication Affordability : No concerns related to payment for meds Living Situation at Admission Address confirmed from chart: Yes and was correct Living Arrangements: Spouse/significant other Type of Residence: Private residence Steps to enter home: No steps Steps within home: no steps Patient's baseline at time of admission: Home Independent (Partner or Family support within home) Support Systems: Spouse/significant other, Children Assistive Devices: None (DME provider is: N/A) Current Homecare Services: None Community Carburetor Expert: None Outside Services: None Past Services: Not addressed on initial assessment Discharge Needs Initial Transition Plan: Home Back up Transition plan: Home Health Care Informed Choice Given? : Yes CM Sticky Note: CRIS: 01/09/23 Primary D/C Plan: home (family's home) Next Steps: IV ATB Decision maker: Patient Transportation at discharge: Family Needed for d/c recommendations: PT and OT Case Management Narrative Pt lives in [place], is here visiting family. Plan to return to daughter's home locally at discharge. CM will continue to follow. * Gianfranco Jewell NP - 01/07/2023 11:24 AM EST Images from the original note were not included. Progress Note Chief Complaint/Visit Reason: Knee pain Impression: Yoni Villalpando is a 77 y.o. male with past medical history of COPD, hypertension, heart failure, PAD, remote hx of DVT, and gout who presents to [facility] ED on 01/06/2023 for evaluation of worsening right knee pain, swelling, fever and chills. On arrival to the emergency department the patient was febrile with temperature 102.9 F, Hypertensive and on room air. Laboratory results significant for CRP 32.6, WBC 11.4 with left shift, ESR 104. X-ray of the right foot without radiologic findings to suggest acute osteomyelitis. Right knee x-raynegative for acute fractures or dislocation. Blood cultures were obtained in the ED. Patient was started on vancomycin and Zosyn and admitted to [facility] with a consultation to orthopedic surgery. Patientunderwent bedside arthrocentesis in the ED and fluid analysis and cultures were sent. Diagnoses: Sepsis, present on admission secondary to below Acute right knee pain, concerning for septic joint vs. Acute crystalopathy Chronic nonhealing right foot ulcer JUAN Hx of Gout PAD Hypertension Hyperlipidemia Remote history of DVT COPD Plan: Orthopedic surgery consulted- low suspicion for septic joint, follow cultures MRI w/ and w/out right foot- mild osteomyelitis at fifth lateral metatarsal, will consult podiatry ABIs, possible vascular surgery consult pending GEORGETTE results Cont empiric antibiotics Follow bilateral duplex of LEs to r/u DVT Home medications resumed- holding valsartan, spironolactone, lasix in setting of JUAN IVFs Daily labs Wound consult PT/OT [place]: None CVC: None DVT prophylaxis: Lovenox Code Status: Full code, confirmed with patient on admission Disposition: Anticipate discharge in the next 48 hours pending culture results and clinical improvement Gianfranco Jewell NP [facility] ([facility]) Subjective: Feels better overall. Concerned about discharge planning as he lives in [place]- discussed findingsof MRI and plans for further imaging/dc planning. Denies pain. Eating and drinking without issue. Review of Systems All other systems reviewed and are negative. Vitals and Physical exam: Patient Vitals for the past 24 hrs: BP Temp Temp src Pulse Resp SpO2 01/07/23 0811 (!) 156/83 37.8 C (100 F) Oral 71 16 94 % 01/07/23 0502 106/64 36.6 C (97.9 F) Oral 62 -- 93 % 01/07/23 0143 103/64 36.8 C (98.2 F) Oral 58 -- 93 % 01/06/23 2316 95/57 37.4 C (99.4 F) Oral 59 -- 93 % 01/06/23 1821 (!) 168/79 (!) 39.4 C (102.9 F) Oral 69 16 100 % There is no height or weight on file to calculate BMI. Intake/Output Summary (Last 24 hours) at 01/07/2023 1124 Last data filed at 01/07/2023 0020 Gross per 24 hour Intake 100 ml Output -- Net 100 ml Physical Exam Constitutional: Appearance: Normal appearance. HENT: Head: Normocephalic and atraumatic. Mouth/Throat: Mouth: Mucous membranes are moist. Cardiovascular: Rate and Rhythm: Normal rate and regular rhythm. Heart sounds: Normal heart sounds. Pulmonary: Effort: Pulmonary effort is normal. Breath sounds: Normal breath sounds. Abdominal: General: Bowel sounds are normal. Palpations: Abdomen is soft. Musculoskeletal: General: Normal range of motion. Skin: General: Skin is warm and dry. Comments: Erythema and edema of right knee, much improved per patient. Wound on right lateral plantar surface with some malodorous drainage and surrounding erythema Neurological: General: No focal deficit present. Mental Status: He is alert and oriented to person, place, and time. Psychiatric: Mood and Affect: Mood normal. Behavior: Behavior normal. Recent Lab Results: Results from last 7 days Lab Units 01/07/2345001/06/231935 SODIUM mmol/L 139 134* POTASSIUM mmol/L 3.7 4.1 CHLORIDE mmol/L 106 100 CO2 mmol/L 25 27 BUN mg/dL 29* 17 CREATININE mg/dL 1.79* 1.26 Results from last 7 days Lab Units 01/07/2345601/06/231935 WBC AUTO K/mcL 7.3 11.4* HEMOGLOBIN g/dL 11.1* 12.9* HEMATOCRIT % 34.7* 39.6 PLATELETS K/mcL 127* 173 MCV FL 95.1 92.5 Recent Imaging Findings: MR Foot wo and w Contrast Right Narrative: MRI OF THE RIGHT FOOT WITHOUT AND WITH CONTRAST: 01/07/2023 8:50 AM COMPARISON: Plain radiographs of the right foot 01/06/2023 HISTORY: Wound within the right foot near the lateral aspect of the fifth metatarsal head. Fever and chills. Concern for osteomyelitis. TECHNIQUE: Multiplanar multisequence MR imaging of the right foot was performed prior to and following the administration of 20 mL of intravenous Dotarem contrast. FINDINGS: As identified on the preceding radiographs, there is a wound within the lateral aspect ofthe forefoot near the fifth metatarsal head, measuring approximately 1 cm in diameter. There is significant bone marrow edema and enhancement within the fifth metatarsal head. Some demineralization is noted in this region on the preceding radiographs. These findings are consistent with osteomyelitis. No abscess is identified in this region. There is mild degenerative arthritis involving the first MTP joint and the articulation between thefirst metatarsal head and medial hallux sesamoid, with reactive osseous edema. There is mild buniondeformity of the first metatarsal head, as well. The flexor and extensor tendons of the midfoot and forefoot are normal in thickness and signal. There is no jennifer tenosynovitis. The Lisfranc ligament is intact. Visualized portions of the plantar fascia are normal in thickness and signal. There is diffuse atrophy and edema of the visualized muscles, presumably reflecting denervation change related to peripheral neuropathy. There is diffuse subcutaneous edema within visualized portions of the foot, most pronounced dorsally. Impression: 1. Wound lying immediately lateral to the fifth metatarsal head with associated mild osteomyelitis involving the fifth metatarsal head. No abscess. No findings of septic arthritis involving the fifth MTP joint. 2. Significant subcutaneous edema within the foot, most mass dorsally. A large component edema likely reflects lymphedema, though I suspect that there is also a component of cellulitis within the lateral forefoot. 3. 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 4. Diffuse atrophy and edema of the intrinsic muscles of the foot, most likely reflecting denervation change related to peripheral neuropathy. -------- FINAL REPORT -------- Dictated By: Polo Casanova Dictated Date: 01/07/2023 09:44 Assigned Physician: Polo Casanova Reviewed and Electronically Signed By: Polo Casanova Signed Date: 01/07/2023 09:56 Workstation ID: [id number] Transcribed By: Self Edit Transcribed Date: 01/07/2023 09:44 Allergies: No Known Allergies * Dalila Helm RN - 01/07/2023 2:45 AM EST Problem: Health Behavior: Goal: Patient Specific Outcome Outcome: Not Progressing Goal: Patient Specific Outcome Outcome: Not Progressing Goal: Patient Specific Outcome Outcome: Not Progressing Problem: Physical Regulation: Goal: Signs and symptoms of infection will decrease Outcome: Not Progressing Goal: Complications related to the disease process, condition or treatment will be avoided or minimized Outcome: Not Progressing Goal: Diagnostic test results will improve Outcome: Not Progressing Goals: Identify possible barriers to meeting goals/advancing plan of care: infection, PMH Stability of the patient: Moderately Stable - Low risk of patient condition declining or worsening End of Shift Summary: pt admitted for cellulitis * Ashlyn Benoit [facility] - 01/07/2023 12:24 AM EST Pharmacokinetic Consult - Vancomycin Dosing Day #1 Yoni Villalpando is a 77 year old male who presents to [facility] with a chief complaint of increased fever. Patient history is difficult to follow. Previously seen yesterday in the ER for injuries to his right elbow and right right knee - x- rays negative for fractures. Patient states that he has had a wound on the lateral aspect of his foot since September - not currently on antibiotics for this. Patient unable to state when right foot pain increased or when right leg redness or swelling occurred. Patient acknowledges right knee is painful and has decreased range of motion since his fall yesterday. Patient's family provides some history noting he had a fever this afternoon at 4 pm after taking his Kef [place] and [place]. Temperature increased from 101 to 103. Patient denies nausea and vomiting. Denies hxof diabetes. Daughter changed patient's dressing this morning and feels that the foot is more red and swollen and also increases in swelling when he is driving. X-ray right foot - No acute osteomyelitis. Soft tissue swelling in the forefoot, suggesting cellulitis. Past Medical History: Diagnosis Date COPD (chronic obstructive pulmonary disease) ([facility]) Hypertension Allergies as of 01/06/2023 (No Known Allergies) Anti-infectives (From admission, onward) Start Dose/Rate Route Frequency Ordered Stop 01/06/232245 vancomycin (VANCOCIN) 2,500 mg in sodium chloride 0.9 % 500 mL IVPB 25 mg/kg 95.3 kg 200 mL/hr over 150 Minutes intravenous Once 01/06/23224407/05/23 2345 Results from last 7 days Lab Units 01/06/23 1936 WBC AUTO K/mcL 11.4* BUN mg/dL 17 CREATININE mg/dL 1.26 Estimated Creatinine Clearance: 58.7 mL/min (by C-G formula based on SCr of 1.26 mg/dL). No intake or output data in the 24 hours ending 01/06/23 2354 Visit Vitals Blood Pressure 95/57 Pulse 59 Temperature 37.4 C (99.4 F) (Oral) Respiration 16 Oxygen Saturation 93% Smoking Status Former Temp (24hrs), Av.4 C (101.2 F), Min:37.4 C (99.4 F), Max:39.4 C (102.9 F) IBW: [place] body weight: 73 kg (160 lb 15 oz) Adjusted ideal body weight: 81.9 kg (180 lb 9 oz) Weight: 95.3 kg BMI: 30.13 kg/m2 Microbiology 01/06 blood culture (2) - in process 01/06 aspirate from right knee - in process Assessment and Plan Vancomycin loading dose 25 mg/kg given in the ER @ 01/06 @ 00:06. Using the kinetics navigator, AUCdosing and traditional dosing predict a maintenance dose of 750 mg every 12 hours estimating an SNX809 with a predicted peak= 23 and a predicted trough = 12.96. Aspirate of the knee currently in process. X-ray of the right foot does not show osteomyelitis but significant for cellulitis. Pharmacy will continue to follow. Pharmacy will continue to to monitor for s/sx of nephrotoxicity, culture results, and clinical progress. Thank you, Ashlyn Benoit RPh * ZAIN Rosales - 01/06/2023 7:16 PM EST Patient Name: Yoni Villalpando Initial Evaluation: 01/06/2023 : 1945 Patient's PCP: Alisia Rees [facility] Physician ZAIN Rosales [facility] Evaluation Note Yoni Villalpando is a 77 y.o. male with a history of COPD, hypertension, CHF, and chronic right lateral foot wound who presents with chief complaint of increased fever today. Patient's history is convoluted but he is visiting [place] with his because his suffered a stroke. He lives in [place]. Since September he has had a wound on the lateral aspect of his foot which his primary care provider was caring for until a month ago when he had to come to [place] because of health problems and his . 2 weeks ago he saw an urgent care for it and they told him to stop the Epsom salt soaks he had been doing. 1 week ago he saw a erp specialist. At no previous time has been on antibiotics. The patient was seen here last night for injuries to his right elbow and his right knee because he had fallen at his 's appointment when she had a seizure. His x-rays were negative for fractures.He was noted to have some redness involving the right lateral foot wound and was placed on antibiotics as he also had a fever at the time. The patient cannot say when his right foot pain increased. He is not sure about the right leg redness or swelling. His right knee is painful and has decreased range of motion since his fall yesterday. His family provides some history noting that he had a fever this afternoon at 4:00 and after taking his Keflex and [place] his temperature was rechecked a little later and it had increased from 101 to103. He denies nausea, vomiting, history of diabetes. His daughter changed his dressing this morning and she feels that the foot is more red and swollen. He thinks that the foot and leg become more red and swollen when he is driving than when he is not but has not noticed a pattern other than that. Exam: Right lower extremity is notable for warmth and tenderness over the anterior knee with decreased range of motion. There is bright red discoloration over the anterior doty extending bilaterally with pitting edema. There is redness and swelling of the distal foot with a foul-smelling draining wound on the right lateral and plantar aspect. Patient is febrile at 102.9. Differential diagnosis includes cellulitis, abscess, osteomyelitis of the right foot. Right knee infection is less likely given the recent injury to the knee. I also will assess for sepsis. Vitals are as noted below: Vitals: 01/06/23 1821 BP: (!) 168/79 Pulse: 69 Resp: 16 Temp: (!) 39.4 C (102.9 F) SpO2: 100% Pit process initiated and next physician will perform detailed history and physical exam. * Jamal Dan MD - 01/06/2023 6:16 PM ESTAssociated Order(s): Arthrocentesis Chief Complaint Patient presents with Wound Check Patient arrived with the c/o of right foot wound. Patient also inquired an injury at doctors office. Patient was seen in this ER last night, and told if fever spikes to come back in. History of Present Illness: Yoni Villalpando is a 77 y.o. male presenting with fever and leg pain. He was actually seen here yesterday and diagnosed with cellulitis. Given Keflex and discharged. On Sunday, he fell into his right lower extremity. He has noted some knee pain since this time. He ended up being seen yesterday. Diagnosed with a lower extremity cellulitis. He also has a chronic wound on the dorsal lateral portion of his right foot. He is in wound care for this. There may be some changes over the last few weeks but overall, it has remained largely the same. He is here today as he was instructed to return if he has a fever. Noted he had a temperature of 103.9 degrees at home. He feltvery fatigued. Stated he never felt like this before. His biggest complaint related to the symptomsof his knee pain. He is having such severe knee pain he is having trouble walking. He resides mostly in the [facility] but he has been here for the last few months and receiving wound care here. Discussed with independent historian -: Yes, children bedside Review of External Record -: Yes: Reviewed emergency visit yesterday PAST MEDICAL HISTORY: Patient Active Problem List Diagnosis Fever Cellulitis of right lower leg Past Medical History: Diagnosis Date COPD (chronic obstructive pulmonary disease) ([facility]) Hypertension History reviewed. No pertinent surgical history. No Known Allergies Family History Problem Relation Name Age of Onset Lung cancer Brother SOCIAL HISTORY: Social History Tobacco Use Smoking status: Former Types: Cigarettes Smokeless tobacco: Never Substance Use Topics Alcohol use: Not on file Social History Social History Narrative Not on file REVIEW OF SYSTEMS: Otherwise as per HPI. PHYSICAL EXAM: ED Triage Vitals [01/06/23 1821] Temp Heart Rate Resp BP (!) 39.4 C (102.9 F) 69 16 (!) 168/79 SpO2 Temp Source Heart Rate Source Patient Position 100 % Oral Monitor Sitting BP Location FiO2 (%) Left arm;Upper -- CONSTITUTIONAL: Well appearing, no apparent distress EYES: Pupils are equally round. There is no evidence of conjunctival pallor. HENT: Mucous membranes moist. Oropharynx unremarkable. CARDIOVASCULAR: Heart is regular, no murmurs. Good peripheral pulses. PULMONARY/CHEST: Lungs are clear to auscultation bilaterally. No signs of respiratory distress. ABDOMINAL: Soft, nontender, nondistended. MUSCULOSKELETAL: Compared to his left leg, there are cellulitic changes from about the right knee down to the right proximal tibia. On the right dorsal lateral portion of his foot, there is a chroniculcerative like wound. There is some minimal surrounding erythema. Good peripheral pulses. He has aa lot of tenderness to palpation of his right knee. I am able to range the knee though he does havepain with this. The right lower extremity is hot to palpation. As is the right knee. NEURO: The patient is AAOx3. There are no focal neurologic deficits. SKIN: Warm, well perfused. No acute rashes. PSYCH: Normal affect. ED STUDIES: Labs Reviewed BASIC METABOLIC PANEL - Abnormal Result Value Sodium 134 (*) Potassium 4.1 Chloride 100 CO2 27 Anion Gap 7 Glucose 115 (*) BUN 17 Creatinine 1.26 eGFR 59 (*) BUN/Creatinine Ratio 13.5 Calcium 8.6 (*) SEDIMENTATION RATE - Abnormal Sed Rate 104 (*) C-REACTIVE PROTEIN - Abnormal C-Reactive Protein 32.6 (*) CBC WITH AUTO DIFFERENTIAL - Abnormal WBC 11.4 (*) RBC 4.28 (*) Hemoglobin 12.9 (*) Hematocrit 39.6 MCV 92.5 MCH 30.1 MCHC 32.6 RDW 13.5 Platelets 173 MPV 10.7 Neutrophils Relative 77.6 (*) Lymphocytes Relative 13.6 (*) Monocytes Relative 8.2 Eosinophils Relative 0.1 Basophils Relative 0.1 Immature Granulocytes Relative 0.4 Neutrophils Absolute 8.82 (*) Lymphocytes Absolute 1.55 Monocytes Absolute 0.93 (*) Eosinophils Absolute 0.01 Basophils Absolute 0.01 Immature Granulocytes Absolute 0.04 LACTATE - Normal Lactate 1.1 CULTURE BLOOD CULTURE BLOOD CULTURE BODY FLUID WITH GRAM STAIN CBC AND DIFFERENTIAL Narrative: The following orders were created for panel order CBC and differential. Procedure Abnormality Status --------- ------ CBC auto differential[[id number]] Abnormal Final result Please view results for these tests on the individual orders. GLUCOSE, BODY FLUID CELL COUNT WITH REFLEX DIFFERENTIAL, BODY FLUID PROTEIN, BODY FLUID CRYSTAL IDENTIFICATION, BODY FLUID XR Knee 4+ Views Right Final Result Negative for erosion of the joint space or periosteal reaction. Trace suprapatellar joint fluid. Fabella. Atherosclerotic vascular calcifications are noted. Negative for fracture or dislocation. Soft tissue swelling can be better assessed with physical exam and correlated with the prior study. CT or MRI could further assess the knee if deemed appropriate particularly if there is concern for soft tissue infection. -------- FINAL REPORT -------- Dictated By: Reyes Dixon Dictated Date: 01/06/2023 21:40 Assigned Physician: Reyes Dixon Reviewed and Electronically Signed By: Reyes Dixon Signed Date: 01/06/2023 21:44 Workstation ID: [id number] Transcribed By: Self Edit Transcribed Date: 01/06/2023 21:40 XR Foot 3+ Views Right Final Result Soft tissue ulceration adjacent to the 5th metatarsal head. Soft tissue swelling in the forefoot, suggesting cellulitis No radiographic findings of acute osteomyelitis. MRI could further evaluate if there is high clinical suspicion. No acute fracture. Mild 1st MTP joint degenerative changes. -------- FINAL REPORT -------- Dictated By: Madhu Blackwell Dictated Date: 01/06/2023 20:07 Assigned Physician: Madhu Blackwell Reviewed and Electronically Signed By: Madhu Blackwell Signed Date: 01/06/2023 20:09 Workstation ID: [id number] Transcribed By: Self Edit Transcribed Date: 01/06/2023 20:07 MR Foot wo and w Contrast Right (Results Pending) Vascular US duplex lower extremity venous bilateral (Results Pending) ED COURSE: Vitals: 01/06/23 1821 01/06/236 BP: (!) 168/79 95/57 BP Location: Left arm;Upper Patient Position: Sitting Pulse: 69 59 Resp: 16 Temp: (!) 39.4 C (102.9 F) 37.4 C (99.4 F) TempSrc: Oral Oral SpO2: 100% 93% Medications vancomycin (VANCOCIN) 2,500 mg in sodium chloride 0.9 % 500 mL IVPB (2,500 mg intravenous New Bag 01/07/236) ibuprofen (ADVIL,MOTRIN) tablet 600 mg (600 mg oral Given 01/06/231946) lidocaine (XYLOCAINE) 1 % injection 10 mL (10 mL infiltration Given 01/06/232314) piperacillin-tazobactam (ZOSYN) 4.5 g in sodium chloride 0.9 % 100 mL IVPB - MBP (4.5 g intravenousNew Bag 01/06/232319) In summary, Yoni Villalpando is a 77 y.o. male with an ongoing chronic right lower extremity wound recent fall, presenting with worsening cellulitis and knee pain and now febrile. Overall patient appears well. He was febrile here. This resolved with therapy. His physical examination is concerning given the right lower extremity is warm, somewhat edematous, cellulitic in nature. I am concerned for potential effusion. I am able to range his joint. I discussed this case with the orthopedic resident. He stated that he agreed that we need to tap this drain regardless if there is overlying skin changes concerning for cellulitis. I discussed the risk benefits regarding the this with the patient. He was understanding. Tolerated the procedure very well. Following this, I treated for cellulitis and osteomyelitis. He was given Vanco and Zosyn. I did place an MRI of his foot to further evaluate for osteomyelitis for potential source of his pain. Patient will require admission. Cultures obtained. Currently joint aspirate is pending. Patient otherwise has a complete lack of other symptoms. No respiratory symptoms. No abdominal symptoms. I do feel the most likely diagnosis of his fever is likely some sort of ongoing soft tissue infection. ED Course as of 01/09/231655 Sat Jan 06, 2023 262 I discussed this with orthopedic resident, Dave Ríos. I discussed my concern of potential a joint effusion, his fever, septic arthritis. I discussed potential overlying cellulitic changes. He stated regardless, we will need to tap this joint regardless of having overlying cellulitic changes. Will go ahead and tap the joint. Will plan for IV antibiotics following this. Will then admit. [CF] ED Course User Index [CF] Jamal Dan MD Clinical Impressions as of 01/09/231655 Cellulitis of right lower leg Effusion, right knee Ulcer of foot, chronic, right, with unspecified severity ([facility]) The differential associated with the patient's presentation includes cellulitis, osteomyelitis, soft tissue infection, necrotizing soft tissue infection, septic arthritis Discussed management with physician/healthcare provider/other source -: Yes, Hospitalist, [facility] Test Considered But Not Performed List -: Considered additional imaging. MRI of his foot ordered. Not appreciating crepitus. I have low concern for soft tissue necrotizing infection. Deferred at thistime Prescription Medication Considered -: Yes: Antibiotic vanc, zosyn DIAGNOSTIC IMPRESSION: 1. Cellulitis of right lower leg 2. Effusion, right knee DISPOSITION: Admit To Inpatient PDMP Reviewed by: Morgan Grover MD on 01/05/2023 7:20 PM ED Prescriptions None Medical Decision Making Arthrocentesis Date/Time: 01/07/2023 1:44 AM Performed by: Jamal Dan MD Authorized by: Jamal Dan MD Consent: Consent obtained: Verbal Consent given by: Patient Risks discussed: Bleeding, incomplete drainage, infection, nerve damage and pain Alternatives discussed: No treatment [place] protocol: Patient identity confirmed: Verbally with patient Location: Location: Knee Knee: R knee Anesthesia: Anesthesia method: Local infiltration Local anesthetic: Lidocaine 1% w/o epi Procedure details: Preparation: Patient was prepped and draped in usual sterile fashion Needle gauge: 18 G Ultrasound guidance: no Approach: Lateral Aspirate amount: 10 Aspirate characteristics: Clear Steroid injected: no Specimen collected: yes Post-procedure details: Dressing: Adhesive bandage Procedure completion: Tolerated well, no immediate complications Jamal Dan MD 01/06/23 2241 Jamal Dan MD 01/07/23 0009 Jamal Dan MD 01/07/23 0145 Jamal Dan MD 01/07/23 0146 Jamal Dan MD 01/09/23 1656 documented in this [facility]11-28-2023 Hospital course Narrative* Ken Donato, - 01/09/2023 10:32 AM EST Images from the original note were not included. Discharge Summary Admission Date: 01/06/2023 Discharge Date: 01/09/2023 Admitting Provider: [facility] ([facility]) Primary Care Physician at Discharge: Alisia Rees MD Discharge Disposition Home Patient condition on discharge Improved Hospital Course Yoni Villalpando is a 77 y.o. male with past medical history of COPD, hypertension, heart failure, PAD, remote hx of DVT, and gout who presents to [facility] ED on 01/06/2023 for evaluation of worsening right knee pain, swelling, fever and chills. On arrival to the emergency department the patient was febrile with temperature 102.9 F, Hypertensive and on room air. Laboratory results significant for CRP 32.6, WBC 11.4 with left shift, ESR 104. X-ray of the right foot without radiologic findings to suggest acute osteomyelitis. Right knee x-raynegative for acute fractures or dislocation. Blood cultures were obtained in the ED. Patient was started on vancomycin and Zosyn and admitted to [facility] with a consultation to orthopedic surgery. Patientunderwent bedside arthrocentesis in the ED and fluid analysis and cultures were sent. So far all cultures negative. On the day of discharge he had been afebrile for 24 hours. Discharge Final Diagnosis Sepsis, present on admission secondary to below Acute right knee pain, concerning for septic joint vs. Acute crystalopathy Chronic nonhealing right foot ulcer JUAN Hx of Gout PAD Hypertension Hyperlipidemia Remote history of DVT COPD Discharge Medication List Your medication list START taking these medications Instructions Last Dose Given Next Dose Due amoxicillin-clavulanate 875-125 mg per tablet Commonly known as: AUGMENTIN Take 1 tablet by mouth every 12 (twelve) hours for 19 doses. oxyCODONE 5 mg immediate release tablet Commonly known as: ROXICODONE Take 1 tablet (5 mg total) by mouth every 4 (four) hours if needed (moderate pain or when therapiesfor mild pain were not effective). Max Daily Amount: 30 mg CONTINUE taking these medications Instructions Last Dose Given Next Dose Due albuterol HFA 90 mcg/actuation inhaler Commonly known as: PROAIR HFA ; PROVENTIL HFA ; VENTOLIN HFA Inhale 2 puffs every 6 (six) hours if needed for wheezing. amLODIPine 5 mg tablet Commonly known as: NORVASC Take 1 tablet (5 mg total) by mouth 1 (one) time each day. aspirin 81 mg chewable tablet Chew 1 tablet (81 mg total) 1 (one) time each day. carvediloL 3.125 mg tablet Commonly known as: COREG Take 1 tablet (3.125 mg total) by mouth 2 (two) times a day with meals. cholecalciferol 1,250 mcg (50,000 unit) capsule Commonly known as: VITAMIN D-3 Take 1 capsule (50,000 Units total) by mouth 1 (one) time per week. dutasteride 0.5 mg capsule Commonly known as: AVODART Take 1 capsule (0.5 mg total) by mouth 1 (one) time each day. fluticasone propion-salmeteroL 100-50 mcg/dose diskus inhaler Commonly known as: ADVAIR DISKUS Inhale 1 puff 2 (two) times a day. Rinse mouth with water after use to reduce aftertaste and incidence of candidiasis. Do not swallow. furosemide 40 mg tablet Commonly known as: LASIX Take 1 tablet (40 mg total) by mouth 1 (one) time each day. pantoprazole 40 mg EC tablet Commonly known as: PROTONIX Take 1 tablet (40 mg total) by mouth 1 (one) time each day before breakfast. Do not crush, chew, orsplit. potassium chloride 15 mEq CR tablet Commonly known as: KLOR-CON M15 Take 1 tablet (15 mEq total) by mouth 1 (one) time each day. Do not crush or chew. rOPINIRole 2 mg tablet Commonly known as: REQUIP Take 1 tablet (2 mg total) by mouth 2 (two) times a day. spironolactone 25 mg tablet Commonly known as: ALDACTONE Take 1 tablet (25 mg total) by mouth 1 (one) time each day. tamsulosin 0.4 mg 24 hr capsule Commonly known as: FLOMAX Take 1 capsule (0.4 mg total) by mouth 1 (one) time each day with breakfast. Capsules should be taken 30 minutes following the same meal each day. tiotropium 18 mcg per inhalation capsule Commonly known as: SPIRIVA Place 1 capsule (18 mcg total) into inhaler and inhale 1 (one) time each day. valsartan 320 mg tablet Commonly known as: DIOVAN Take 1 tablet (320 mg total) by mouth 1 (one) time each day. STOP taking these medications cephalexin 500 mg capsule Commonly known as: KEFLEX HYDROcodone-acetaminophen 5-325 mg per tablet Commonly known as: NORCO Where to Get Your Medications These medications were sent to [facility]/pharmacy #[id number] - [address] AT [address] , [facility] [id number] amoxicillin-clavulanate 875-125 mg per tablet oxyCODONE 5 mg immediate release tablet Code Status at Discharge: Full Code - Confirmed Outpatient Follow-Up He will follow-up with his primary care physician in [place] Vitals and Physical Exam Patient Vitals for the past 24 hrs: BP Temp Temp src Pulse Resp SpO2 01/09/23 1026 139/71 -- -- 63 -- -- 01/09/23 0738 137/79 37.1 C (98.8 F) Oral 66 -- 93 % 01/09/23 0541 136/73 37.5 C (99.5 F) Oral 66 18 90 % 01/08/232236 -- -- -- 72 -- 92 % 01/08/232236 -- -- -- 71 -- 91 % 01/08/232228 (!) 144/73 37.9 C (100.2 F) Oral 72 18 92 % 01/08/232010 (!) 168/75 37.6 C (99.7 F) Oral 78 18 91 % 01/08/23 1842 (!) 156/79 36.7 C (98.1 F) Oral 76 -- 93 % 01/08/23 1143 (!) 168/81 37 C (98.6 F) Oral 78 -- 92 % Physical Exam Vitals reviewed. Constitutional: General: He is not in acute distress. Appearance: Normal appearance. He is ill-appearing. HENT: Head: Normocephalic. Cardiovascular: Rate and Rhythm: Normal rate and regular rhythm. Heart sounds: No murmur heard. Pulmonary: Effort: Pulmonary effort is normal. Breath sounds: Normal breath sounds. No wheezing or rhonchi. Abdominal: General: Abdomen is flat. Bowel sounds are normal. Palpations: Abdomen is soft. Tenderness: There is no abdominal tenderness. There is no guarding. Musculoskeletal: Cervical back: Normal range of motion. Right lower leg: Edema present. Left lower leg: No edema. Comments: Erythema is improving over the right lower extremity Skin: General: Skin is warm and dry. Neurological: General: No focal deficit present. Mental Status: He is alert and oriented to person, place, and time. Mental status is at baseline. Psychiatric: Mood and Affect: Mood normal. Test Results and active issues pending at Discharge None Pending Labs Order Current Status Blood Culture, Peripheral Draw #1 Preliminary result Blood Culture, Peripheral Draw #2 Preliminary result Procedures Performed * Surgery not found * * No surgery found * * Surgery not found * Recent Lab Results Results from last 7 days Lab Units 01/09/23 0549 01/08/23 0355 01/07/23 0451 01/06/23 1936 SODIUM mmol/L 139 138 139 134* POTASSIUM mmol/L 4.2 3.6 3.7 4.1 CHLORIDE mmol/L 108* 109* 106 100 CO2 mmol/L 22 24 25 27 BUN mg/dL 16 21* 29* 17 CREATININE mg/dL 1.07 1.18 1.79* 1.26 Results from last 7 days Lab Units 01/09/23 0549 01/08/23 0355 01/07/23 0457 01/06/23 1936 WBC AUTO K/mcL 5.3 6.7 7.3 11.4* HEMOGLOBIN g/dL 9.7* 10.5* 11.1* 12.9* HEMATOCRIT % 29.7* 32.8* 34.7* 39.6 PLATELETS K/mcL 155 142 127* 173 MCV FL 93.1 95.3 95.1 92.5 Recent Imaging findings Vascular US ankle brachial index (GEORGETTE) Right: Ankle brachial index suggestive of normal arterial perfusion to the level of the ankle at rest. The PVR waveforms at the ankle and metatarsal level are mildly blunted. Abnormal toe brachial index of the right lower extremity. Left: Ankle brachial index suggestive of normal arterial perfusion to the level of the ankle at rest. The PVR waveforms at the ankle and metatarsal level are normal. Abnormal toe brachial index of the left lower extremity. Vascular US duplex lower extremity venous bilateral Right: No evidence of deep vein thrombosis in the right lower extremity. No evidence of superficial venous thrombosis in the right lower extremity. Several prominent lymph nodes in the right groin with the largest measuring 2.31 x 1.29 x 1.32 cm. Left: No evidence of deep vein thrombosis in the left lower extremity. No evidence of superficial venous thrombosis in the left lower extremity. Enlarged lymph node in the left groin measuring 5.41 x 1.42 x 0.83 cm. Time preparing discharge and coordination of care 30 minutes Ken Donato DO [facility] ([facility]) * Nilda Edwards RN - 01/08/2023 11:42 AM EST Wound Care: Rt lateral foot and Lt 5th toe Ulcers - Pt may shower. Dry wounds, then apply small amount of Medihoney alginate to wound bed only, then cover with Mepilex Border foam. Change every 3 days. documented in this encounterAmerican Academic Health [id number] Consult note* Nilda Edwards RN - 01/08/2023 10:45 AM EST Images from the original note were not included. Wound Care Initial Consult Visit Date: 01/08/2023 Patient Name: Yoni Villalpando Date of : 1945 Reason for Consult: Rt lateral foot wound and Lt 5th toe wound Wound History: Nutritional Status: Adequate Pertinent Labs: WBC Date Value Ref Range Status 01/08/2023 6.7 4.6 - 10.2 K/mcL Final Wound Assessment: Wound 01/06/23 Knee Anterior;Right (Active) Wound Bed Tissue Assessment Dry 01/08/23704 Pat-Wound Assessment Intact;[place] 01/08/23 07 Shape Other (Comment) 01/07/232237 Closure None 01/07/232237 Drainage Amount None 01/07/232237 Dressing Open to air 01/07/232237 Dressing Status Other (Comment) 01/08/23704 Wound 01/07/23 Toe D5, Fifth Lateral;Left (Active) Wound Image 01/07/23213 Wound Bed Tissue Assessment Unable to assess 01/08/23212 Pat-Wound Assessment Unable to assess 01/08/23212 Drainage Amount None 01/07/23 2100 Dressing Open to air 01/07/23 1030 Dressing Status Clean;Dry;Intact 01/08/23212 Wound 01/07/23 Foot Right;Lateral (Active) Wound Image 01/07/23212 Wound Bed Tissue Assessment Unable to assess 01/08/23212 Pat-Wound Assessment Unable to assess 01/08/23212 Shape Round 01/07/232235 Closure Open to air 01/07/232235 Drainage Amount None 01/07/232235 Treatments Site care 01/07/232235 Dressing Foam 01/07/232235 Dressing Changed New 01/07/232235 Dressing Status Clean;Dry;Intact 01/08/23212 Support Surface: Wound Summary Assessment: Pt is seen sitting on the couch with family present. He is agreeable to assessment and gets back into bed unassisted. Rt lateral foot wound measures 0.5x1.5cm, is nongranular with serosanguinous drainage. Pt does have some edema and erythema to foot/leg that extends up to the thigh, however when asked, pt refused Spandagrip for edema control. He does state he has compression stockings at his family's home and is on Lasix. Lt 5th toe with a 0.2x0.2 cm ulcer that has some borrero drainage noted. Both ulcers have occurred from rubbing on shoes. Cleansed wounds wit soap and water. Medihoney alginate placed in wounds and covered with Mepilex border foam. Wound Plan: Discussed continuing Medihoney alginate every 3 days until seen by Wound Care in [facility] [place] Education: Discussed importance of compression to assist with healing. He verbalized understanding. 01/08/2023 11:31 AM EST [facility] [id number] Consult note* Nilda Edwards RN - 01/08/2023 10:45 AM EST Images from the original note were not included. Wound Care Initial Consult Visit Date: 01/08/2023 Patient Name: Yoni Villalpando Date of : 1945 Reason for Consult: Rt lateral foot wound and Lt 5th toe wound Wound History: Nutritional Status: Adequate Pertinent Labs: WBC Date Value Ref Range Status 01/08/2023 6.7 4.6 - 10.2 K/mcL Final Wound Assessment: Wound 01/06/23 Knee Anterior;Right (Active) Wound Bed Tissue Assessment Dry 01/08/23 07 Pat-Wound Assessment Intact;[place] 01/08/23704 Shape Other (Comment) 01/07/232237 Closure None 01/07/232237 Drainage Amount None 01/07/232237 Dressing Open to air 01/07/232237 Dressing Status Other (Comment) 01/08/23704 Wound 01/07/23 Toe D5, Fifth Lateral;Left (Active) Wound Image 01/07/234 Wound Bed Tissue Assessment Unable to assess 01/08/23212 Pat-Wound Assessment Unable to assess 01/08/23212 Drainage Amount None 01/07/23 2100 Dressing Open to air 01/07/23 103 Dressing Status Clean;Dry;Intact 01/08/23212 Wound 01/07/23 Foot Right;Lateral (Active) Wound Image 01/07/23212 Wound Bed Tissue Assessment Unable to assess 01/08/23212 Pat-Wound Assessment Unable to assess 01/08/23212 Shape Round 01/07/232235 Closure Open to air 01/07/232235 Drainage Amount None 01/07/232235 Treatments Site care 01/07/232235 Dressing Foam 01/07/232235 Dressing Changed New 01/07/232235 Dressing Status Clean;Dry;Intact 01/08/23212 Support Surface: Wound Summary Assessment: Pt is seen sitting on the couch with family present. He is agreeable to assessment and gets back into bed unassisted. Rt lateral foot wound measures 0.5x1.5cm, is nongranular with serosanguinous drainage. Pt does have some edema and erythema to foot/leg that extends up to the thigh, however when asked, pt refused Spandagrip for edema control. He does state he has compression stockings at his family's home and is on Lasix. Lt 5th toe with a 0.2x0.2 cm ulcer that has some borrero drainage noted. Both ulcers have occurred from rubbing on shoes. Cleansed wounds wit soap and water. Medihoney alginate placed in wounds and covered with Mepilex border foam. Wound Plan: Discussed continuing Medihoney alginate every 3 days until seen by Wound Care in [facility] Education: Discussed importance of compression to assist with healing. He verbalized understanding. 01/08/2023 11:31 AM EST * Emma Vasquez, PT - 01/07/2023 2:05 PM EST Patient: Yoni Villalpando Age: 77 y.o. Sex: male Fever [facility] Physical Therapy Evaluation Multi-Disciplinary Rounding Report Ambulation: Walking Assistance: Close supervision Walking Deficit: Supervision/safety awareness Device: (held onto IV pole for first 1/3 of gait, was able to let go for rest of gait without change in mechanics) Distance Ambulated (ft): 200 PLOF: Level of Guion: Independent with mobility and functional transfers Lives With: (spouse in [place]; they are in town visiting family currently until 01-10) Home Adaptive Equipment: Walker - rolling, Cane, Crutches, Wheelchair-manual Home Layout: One level (both pt's home and family's local home) Home Access: Stairs to enter without rails DME Needs: PT Discharge Recommendation: Reason for current recommendation based on assessment: pt at functional baseline SUBJECTIVE RN approves session. Pt in supine upon arrival, agreeable to participate. Past Medical History: Diagnosis Date COPD (chronic obstructive pulmonary disease) (CMS/HCC) Hypertension History reviewed. No pertinent surgical history. OBJECTIVE Precautions: Precautions Medical Precautions: Fall Risk Safety Interventions: Call peña within reach, Gait belt Vitals/Pain: Pain Assessment Pain Assessment: No/denies pain (at rest, mild increase in foot pain with ambulation) Cognition: Cognition Overall Cognitive Status: Within Functional Limits Arousal/Alertness: Appropriate responses to stimuli Home Living: Home Living Lives With: (spouse in [place]; they are in town visiting family currently until 01-10) Home Adaptive Equipment: Walker - rolling, Cane, Crutches, Wheelchair-manual Home Layout: One level (both pt's home and family's local home) Home Access: Stairs to enter without rails Entrance Stairs-Number of Steps: 2-3 (both pt's home and family's local home) Prior Function: Prior Function Level of Guion: Independent with mobility and functional transfers Prior Device Use: (none) General Assessments: Functional Assessments: Bed Mobility Sitting to Lying Assistance: Close supervision Sitting to Lying Deficit: Supervision/safety awareness Lying to Sitting Assistance: Close supervision Lying to Sitting Deficit: Supervision/safety awareness Transfers Sit to Stand Assistance: Close supervision Sit to Stand Deficit: Supervision/safety awareness Ambulation Walking Assistance: Close supervision Walking Deficit: Supervision/safety awareness Device: (held onto IV pole for first 1/3 of gait, was able to let go for rest of gait without change in mechanics) Distance Ambulated (ft): 200 Comments: wide DESIREE, mild R antalgia Stairs Stairs Comments: pt stepped up onto scale for weight without difficulty Extremity Assessments: RLE Assessment RLE Assessment: Within Functional Limits LLE Assessment LLE Assessment: Within Functional Limits Additional Assessments: Additional Assessments/Tests Additional Assessment/Test #1: 6 clicks Procedure/Treatment: Other Activities: ASSESSMENT P.T. eval complete. Pt admitted with sepsis from non healing R foot ulcer, MRI shows mild osteomyelitis. Ortho note indicates plan to consult podiatry. He does not use an assistive device at baseline. Pt tolerated treatment without complications . He ambulated 200' without difficulty other than mild foot pain. Held onto IV pole for part of his walk but was able to let go of it and continue ambulating without difficulty for the rest of the walk. P.T. signing off , pt safe with functional mobility with no acute goals identified. Pt was left in supine with call light, family present. Pt was encouraged to be OOB/amb 2-3 times per day, educated to have assist for all OOB mobility. PT Assessment Evaluation/Treatment Tolerance: Patient tolerated treatment well Medical Staff Made Aware: Yes PLAN Acute Care Plan: PT Plan: No skilled PT PT Discharge Recommendations: Encounter Problems Encounter Problems (Active) There are no active problems. Encounter Problems (Resolved) There are no resolved problems. EDUCATION Education Documentation No documentation found. Education Comments No comments found. Emma Vasquez PT * Sammie Daly MD - 01/07/2023 8:25 AM ESTAssociated Order(s): IP CONSULT TO ORTHOPEDIC SURGERY ORTHOPEDIC SURGERY CONSULTATION NOTE 01/07/2023 8:25 AM EST Chief Complaint Patient presents with Wound Check Patient arrived with the c/o of right foot wound. Patient also inquired an injury at doctors office. Patient was seen in this ER last night, and told if fever spikes to come back in. Requesting Provider: Medicine team Attending Physician: Porfirio Simon MD Date of Service: 01/07/2023 HPI: Yoni Villalpando is an unassisted ambulatory 77 y.o. male with significant history of COPD, CHF, PVD, remote history of DVT not on anticoagulation who presents for evaluation of his right knee and right foot. Per chart review, on Sunday he had a fall onto his right lower extremity. He was seen in theED on 01/05/2023 at which time he was diagnosed with cellulitis and placed on Keflex. He returned yesterday evening due to a fever of 103.9. The right knee was aspirated in the Emergency Department yesterday evening. Crystals and preliminary gram stain were negative. Per daughter, he is in town to assist with his [id number]-jp-[id number] who just had a stroke. On Sunday, she had a pseudoseizure and he was knocked into the wall, hitting his right knee and right elbow. On Sunday, he had increased pain and difficulty ambulating without assistance due to pain in his right knee. He has continued to be able to bear weight though. He additionally has a right lateral foot ulcer for which he has been following with wound care at home in [place] and in [place] since he's been here. In August he developed a right lateral foot callous that after removal has left a wound. He was seen by vascular surgery in [place] for possible right lower leg revascularization. Per daughter, in November he underwent right femoral endarterectomy without stent placement. He was most recently seen by wound care in [place] on Sunday for bedside debridement. Since admission, he was started on vancomycin and Zosyn. He has reportedly significantly improved since the IV antibiotics were started. Per patient, his right knee is feeling better and the right foot wound has also been improving recently. Review of Systems Complete review of systems performed and is negative except otherwise noted above in HPI. PMH: COPD, CHF, PVD, remote history of DVT not on anticoagulation PSH: CABG, R femoral endarterectomy, L ASHLEY Allergies: Denies Active Ambulatory Problems Diagnosis Date Noted No Active Ambulatory Problems Resolved Ambulatory Problems Diagnosis Date Noted No Resolved Ambulatory Problems Past Medical History: Diagnosis Date COPD (chronic obstructive pulmonary disease) ([facility]/HCC) Hypertension Current Facility-Administered Medications Medication Dose Route Frequency Provider Last Rate Last Admin acetaminophen (TYLENOL) tablet 650 mg 650 mg oral q6h PRN ZAIN Beck bisacodyL (DULCOLAX) EC tablet 10 mg 10 mg oral Daily PRN ZAIN Beck cefTRIAXone (ROCEPHIN) IV syringe 2 g 2 g intravenous q24h ZAIN Beck 2 g at 01/07/23 0246 enoxaparin (LOVENOX) injection 40 mg 40 mg subcutaneous q24h ANG ZAIN Beck ketorolac (TORADOL) injection 15 mg 15 mg intravenous q6h PRN Prashanth Martinez DO naloxone (NARCAN) injection 0.04 mg 0.04 mg intravenous PRN ZAIN Beck ondansetron ODT (ZOFRAN-ODT) disintegrating tablet 4 mg 4 mg oral q8h PRN ZAIN Beck Or ondansetron (PF) (ZOFRAN) injection 4 mg 4 mg intravenous q8h PRN ZAIN Beck oxyCODONE (ROXICODONE) immediate release tablet 10 mg 10 mg oral q4h PRN ZAIN Beck oxyCODONE (ROXICODONE) immediate release tablet 5 mg 5 mg oral q4h PRN ZAIN Beck Oxygen Therapy, Adult inhalation PRN ZAIN Beck sodium chloride 0.9 % flush 10 mL 10 mL intravenous BID ZAIN Beck 10 mL at 01/07/23 0225 And sodium chloride 0.9 % flush 10 mL 10 mL intravenous PRN ZAIN Beck sodium chloride 0.9 % infusion 100 mL/hr intravenous Continuous Prashanth Martinez DO 100 mL/hr at 01/07/23 0223 100 mL/hr at 01/07/23 0223 vancomycin (VANCOCIN) 750 mg in sodium chloride 0.9 % 250 mL IVPB 750 mg intravenous q12h ZAIN Beck Allergies: Patient has no known allergies. History reviewed. No pertinent surgical history. Family History Problem Relation Name Age of Onset Lung cancer Brother Social History Socioeconomic History Marital status: Spouse name: Not on file Number of children: Not on file Years of education: Not on file Highest education level: Not on file Occupational History Not on file Tobacco Use Smoking status: Former Types: Cigarettes Smokeless tobacco: Never Substance and Sexual Activity Alcohol use: Not on file Drug use: Not on file Sexual activity: Not on file Other Topics Concern Not on file Social History Narrative Not on file Smoking: Former heavy smoker, quit in 2009 Alcohol: Denies Drugs: Denies Lives in [facility] Objective Visit Vitals BP (!) 156/83 (BP Location: Left arm, Patient Position: Sitting) Pulse 71 Temp 37.8 C (100 F) (Oral) Resp 16 SpO2 94% Smoking Status Former PHYSICAL EXAM: Gen: NAD, pleasant RUE: Dressing about the right elbow. Able to flex and extend the elbow with minimal pain. Able to move right shoulder and wrist without difficulty. Non tender to palpation about the shoulder and wrist. NV intact. RLE: Erythema and warmth about the right lower extremity from just proximal to the knee to the foot. The erythema is improving compared to the previously outlined area. There is a superficial healingapproximately 1.5 cm ulcer about the right lateral foot. This does not probe deep. No significant surrounding erythema or drainage. No pain with logroll. Minimally tender to palpation globally about the knee. Non tender to palpation about the right hip and ankle. Able to flex and extend all toes and plantar flex and dorsiflex the ankle. Sensation intact to light touch about superficial peroneal, deep peroneal, sural, saphenous, and tibial nerve. Foot WWP. Weakly palpable DP pulse but symmetric to contralateral side. LLE: Small superficial wound about the dorsal small toe without any erythema or drainage. No pain with logroll. Non tender to palpation about the left hip, knee, and ankle. Sensation intact to light touch about superficial peroneal, deep peroneal, sural, saphenous, and tibial nerve. Foot WWP. Weakly palpable DP pulse. IMAGING: X-rays of the right knee independently reviewed and demonstrate degenerative changes but no acute osseous abnormalities. X-rays of the right foot also reviewed and do not demonstrate any acute osseous abnormalities or evidence of osteomyelitis. MRI of the right foot pending. LABS: Lab Results Component Value Date WBC 7.3 01/07/2023 HGB 11.1 (L) 01/07/2023 HCT 34.7 (L) 01/07/2023 MCV 95.1 01/07/2023 PLT 127 (L) 01/07/2023 Lab Results Component Value Date GLUCOSE 146 (H) 01/07/2023 CALCIUM 7.9 (L) 01/07/2023 NA 139 01/07/2023 K 3.7 01/07/2023 CO2 25 01/07/2023 CL 106 01/07/2023 BUN 29 (H) 01/07/2023 CREATININE 1.79 (H) 01/07/2023 Lab Results Component Value Date CRP 32.6 (H) 01/06/2023 ESR 104 Assessment/Plan Principal Problem: Fever Active Problems: Cellulitis of right lower leg Yoni Villalpando is a 77 y.o. male with right lower leg cellulitis with associated right knee pain and right lateral foot ulcer. He has been improving on IV antibiotics since admission. In regard to the right knee, aspirate from 01/06/23 has been negative thus far. We will continue to follow the cultureon the right knee aspirate, but low suspicion for septic arthritis at this time. Blood culture is also pending. In regard to the right foot ulcer, agree with MRI with and without contrast. Duplex waspreviously ordered by the medicine team. I have also ordered GEORGETTE's to evaluate his perfusion given his vascular history. If abnormal, would recommend vascular surgery consult for the right foot ulcerif appropriate. No acute surgical intervention warranted at this time from an orthopedic standpoint. Recommend continuing IV antibiotics per the medicine team. He is weightbearing as tolerated about the right lower extremity. Recommend PT/OT as appropriate for mobilization. Pain control and remainder of care per primary. Patient and plan will be discussed with attending occupational psychologist Dr. Simon. Sammie Daly MD PGY-3 Orthopedic Surgery This note was created using txtr dictation software. It was reviewed for any errors but if there are any clinically relevant typos, errors, or inaccuracies, please notify the author immediately. documented in this encounterAmerican Academic Health [id number] Consult note* Emma Vasquez, PT - 01/07/2023 2:05 PM EST Patient: Yoni Villalpando Age: 77 y.o. Sex: male Fever [facility] Physical Therapy Evaluation Multi-Disciplinary Rounding Report Ambulation: Walking Assistance: Close supervision Walking Deficit: Supervision/safety awareness Device: (held onto IV pole for first 1/3 of gait, was able to let go for rest of gait without change in mechanics) Distance Ambulated (ft): 200 PLOF: Level of Guion: Independent with mobility and functional transfers Lives With: (spouse in [place]; they are in town visiting family currently until 01-10) Home Adaptive Equipment: Walker - rolling, Cane, Crutches, Wheelchair-manual Home Layout: One level (both pt's home and family's local home) Home Access: Stairs to enter without rails DME Needs: PT Discharge Recommendation: Reason for current recommendation based on assessment: pt at functional baseline SUBJECTIVE RN approves session. Pt in supine upon arrival, agreeable to participate. Past Medical History: Diagnosis Date COPD (chronic obstructive pulmonary disease) ([facility]) Hypertension History reviewed. No pertinent surgical history. OBJECTIVE Precautions: Precautions Medical Precautions: Fall Risk Safety Interventions: Call peña within reach, Gait belt Vitals/Pain: Pain Assessment Pain Assessment: No/denies pain (at rest, mild increase in foot pain with ambulation) Cognition: Cognition Overall Cognitive Status: Within Functional Limits Arousal/Alertness: Appropriate responses to stimuli Home Living: Home Living Lives With: (spouse in [place]; they are in town visiting family currently until 01-10) Home Adaptive Equipment: Walker - rolling, Cane, Crutches, Wheelchair-manual Home Layout: One level (both pt's home and family's local home) Home Access: Stairs to enter without rails Entrance Stairs-Number of Steps: 2-3 (both pt's home and family's local home) Prior Function: Prior Function Level of Guion: Independent with mobility and functional transfers Prior Device Use: (none) General Assessments: Functional Assessments: Bed Mobility Sitting to Lying Assistance: Close supervision Sitting to Lying Deficit: Supervision/safety awareness Lying to Sitting Assistance: Close supervision Lying to Sitting Deficit: Supervision/safety awareness Transfers Sit to Stand Assistance: Close supervision Sit to Stand Deficit: Supervision/safety awareness Ambulation Walking Assistance: Close supervision Walking Deficit: Supervision/safety awareness Device: (held onto IV pole for first 1/3 of gait, was able to let go for rest of gait without change in mechanics) Distance Ambulated (ft): 200 Comments: wide DESIREE, mild R antalgia Stairs Stairs Comments: pt stepped up onto scale for weight without difficulty Extremity Assessments: RLE Assessment RLE Assessment: Within Functional Limits LLE Assessment LLE Assessment: Within Functional Limits Additional Assessments: Additional Assessments/Tests Additional Assessment/Test #1: 6 clicks Procedure/Treatment: Other Activities: ASSESSMENT P.T. eval complete. Pt admitted with sepsis from non healing R foot ulcer, MRI shows mild osteomyelitis. Ortho note indicates plan to consult podiatry. He does not use an assistive device at baseline. Pt tolerated treatment without complications . He ambulated 200' without difficulty other than mild foot pain. Held onto IV pole for part of his walk but was able to let go of it and continue ambulating without difficulty for the rest of the walk. P.T. signing off , pt safe with functional mobility with no acute goals identified. Pt was left in supine with call light, family present. Pt was encouraged to be OOB/amb 2-3 times per day, educated to have assist for all OOB mobility. PT Assessment Evaluation/Treatment Tolerance: Patient tolerated treatment well Medical Staff Made Aware: Yes PLAN Acute Care Plan: PT Plan: No skilled PT PT Discharge Recommendations: Encounter Problems Encounter Problems (Active) There are no active problems. Encounter Problems (Resolved) There are no resolved problems. EDUCATION Education Documentation No documentation found. Education Comments No comments found. Emma Vasquez PT Host [id number] Consult note* Sammie Daly MD - 01/07/2023 8:25 AM ESTAssociated Order(s): IP CONSULT TO ORTHOPEDIC SURGERY ORTHOPEDIC SURGERY CONSULTATION NOTE 01/07/2023 8:25 AM EST Chief Complaint Patient presents with Wound Check Patient arrived with the c/o of right foot wound. Patient also inquired an injury at doctors office. Patient was seen in this ER last night, and told if fever spikes to come back in. Requesting Provider: Medicine team Attending Physician: Porfirio Simon MD Date of Service: 01/07/2023 HPI: Yoni Villalpando is an unassisted ambulatory 77 y.o. male with significant history of COPD, CHF, PVD, remote history of DVT not on anticoagulation who presents for evaluation of his right knee and right foot. Per chart review, on Sunday he had a fall onto his right lower extremity. He was seen in theED on 01/05/2023 at which time he was diagnosed with cellulitis and placed on Keflex. He returned yesterday evening due to a fever of 103.9. The right knee was aspirated in the Emergency Department yesterday evening. Crystals and preliminary gram stain were negative. Per daughter, he is in town to assist with his [id number] who just had a stroke. On Sunday, she had a pseudoseizure and he was knocked into the wall, hitting his right knee and right elbow. On Sunday, he had increased pain and difficulty ambulating without assistance due to pain in his right knee. He has continued to be able to bear weight though. He additionally has a right lateral foot ulcer for which he has been following with wound care at home in [place] and in [place] since he's been here. In August he developed a right lateral foot callous that after removal has left a wound. He was seen by vascular surgery in [place] for possible right lower leg revascularization. Per daughter, in November he underwent right femoral endarterectomy without stent placement. He was most recently seen by wound care in [place] on Sunday for bedside debridement. Since admission, he was started on vancomycin and Zosyn. He has reportedly significantly improved since the IV antibiotics were started. Per patient, his right knee is feeling better and the right foot wound has also been improving recently. Review of Systems Complete review of systems performed and is negative except otherwise noted above in HPI. PMH: COPD, CHF, PVD, remote history of DVT not on anticoagulation PSH: CABG, R femoral endarterectomy, L ASHLEY Allergies: Denies Active Ambulatory Problems Diagnosis Date Noted No Active Ambulatory Problems Resolved Ambulatory Problems Diagnosis Date Noted No Resolved Ambulatory Problems Past Medical History: Diagnosis Date COPD (chronic obstructive pulmonary disease) ([facility]) Hypertension Current Facility-Administered Medications Medication Dose Route Frequency Provider Last Rate Last Admin acetaminophen (TYLENOL) tablet 650 mg 650 mg oral q6h PRN ZAIN Beck bisacodyL (DULCOLAX) EC tablet 10 mg 10 mg oral Daily PRN ZAIN Beck cefTRIAXone (ROCEPHIN) IV syringe 2 g 2 g intravenous q24h ZAIN Beck 2 g at 01/07/23 0246 enoxaparin (LOVENOX) injection 40 mg 40 mg subcutaneous q24h ANG ZAIN Beck ketorolac (TORADOL) injection 15 mg 15 mg intravenous q6h PRN Prashanth Mansfieldjo, DO naloxone (NARCAN) injection 0.04 mg 0.04 mg intravenous PRN ZAIN Beck ondansetron ODT (ZOFRAN-ODT) disintegrating tablet 4 mg 4 mg oral q8h PRN ZAIN Beck Or ondansetron (PF) (ZOFRAN) injection 4 mg 4 mg intravenous q8h PRN ZAIN Beck oxyCODONE (ROXICODONE) immediate release tablet 10 mg 10 mg oral q4h PRN ZAIN Beck oxyCODONE (ROXICODONE) immediate release tablet 5 mg 5 mg oral q4h PRN ZAIN Beck Oxygen Therapy, Adult inhalation PRN ZAIN Beck sodium chloride 0.9 % flush 10 mL 10 mL intravenous BID ZAIN Beck 10 mL at 01/07/23 0225 And sodium chloride 0.9 % flush 10 mL 10 mL intravenous PRN ZAIN Beck sodium chloride 0.9 % infusion 100 mL/hr intravenous Continuous Jhosyanira Martinez, DO 100 mL/hr at 01/07/23 0223 100 mL/hr at 01/07/23 0223 vancomycin (VANCOCIN) 750 mg in sodium chloride 0.9 % 250 mL IVPB 750 mg intravenous q12h ZAIN Beck Allergies: Patient has no known allergies. History reviewed. No pertinent surgical history. Family History Problem Relation Name Age of Onset Lung cancer Brother Social History Socioeconomic History Marital status: Spouse name: Not on file Number of children: Not on file Years of education: Not on file Highest education level: Not on file Occupational History Not on file Tobacco Use Smoking status: Former Types: Cigarettes Smokeless tobacco: Never Substance and Sexual Activity Alcohol use: Not on file Drug use: Not on file Sexual activity: Not on file Other Topics Concern Not on file Social History Narrative Not on file Smoking: Former heavy smoker, quit in 2009 Alcohol: Denies Drugs: Denies Lives in [facility] Objective Visit Vitals BP (!) 156/83 (BP Location: Left arm, Patient Position: Sitting) Pulse 71 Temp 37.8 C (100 F) (Oral) Resp 16 SpO2 94% Smoking Status Former PHYSICAL EXAM: Gen: NAD, pleasant RUE: Dressing about the right elbow. Able to flex and extend the elbow with minimal pain. Able to move right shoulder and wrist without difficulty. Non tender to palpation about the shoulder and wrist. NV intact. RLE: Erythema and warmth about the right lower extremity from just proximal to the knee to the foot. The erythema is improving compared to the previously outlined area. There is a superficial healingapproximately 1.5 cm ulcer about the right lateral foot. This does not probe deep. No significant surrounding erythema or drainage. No pain with logroll. Minimally tender to palpation globally about the knee. Non tender to palpation about the right hip and ankle. Able to flex and extend all toes and plantar flex and dorsiflex the ankle. Sensation intact to light touch about superficial peroneal, deep peroneal, sural, saphenous, and tibial nerve. Foot WWP. Weakly palpable DP pulse but symmetric to contralateral side. LLE: Small superficial wound about the dorsal small toe without any erythema or drainage. No pain with logroll. Non tender to palpation about the left hip, knee, and ankle. Sensation intact to light touch about superficial peroneal, deep peroneal, sural, saphenous, and tibial nerve. Foot WWP. Weakly palpable DP pulse. IMAGING: X-rays of the right knee independently reviewed and demonstrate degenerative changes but no acute osseous abnormalities. X-rays of the right foot also reviewed and do not demonstrate any acute osseous abnormalities or evidence of osteomyelitis. MRI of the right foot pending. LABS: Lab Results Component Value Date WBC 7.3 01/07/2023 HGB 11.1 (L) 01/07/2023 HCT 34.7 (L) 01/07/2023 MCV 95.1 01/07/2023 PLT 127 (L) 01/07/2023 Lab Results Component Value Date GLUCOSE 146 (H) 01/07/2023 CALCIUM 7.9 (L) 01/07/2023 NA 139 01/07/2023 K 3.7 01/07/2023 CO2 25 01/07/2023 CL 106 01/07/2023 BUN 29 (H) 01/07/2023 CREATININE 1.79 (H) 01/07/2023 Lab Results Component Value Date CRP 32.6 (H) 01/06/2023 ESR 104 Assessment/Plan Principal Problem: Fever Active Problems: Cellulitis of right lower leg Yoni Villalpando is a 77 y.o. male with right lower leg cellulitis with associated right knee pain and right lateral foot ulcer. He has been improving on IV antibiotics since admission. In regard to the right knee, aspirate from 01/06/23 has been negative thus far. We will continue to follow the cultureon the right knee aspirate, but low suspicion for septic arthritis at this time. Blood culture is also pending. In regard to the right foot ulcer, agree with MRI with and without contrast. Duplex waspreviously ordered by the medicine team. I have also ordered GEORGETTE's to evaluate his perfusion given his vascular history. If abnormal, would recommend vascular surgery consult for the right foot ulcerif appropriate. No acute surgical intervention warranted at this time from an orthopedic standpoint. Recommend continuing IV antibiotics per the medicine team. He is weightbearing as tolerated about the right lower extremity. Recommend PT/OT as appropriate for mobilization. Pain control and remainder of care per primary. Patient and plan will be discussed with attending occupational psychologist Dr. Simon. Sammie Daly MD PGY-3 Orthopedic Surgery This note was created using txtr dictation software. It was reviewed for any errors but if there are any clinically relevant typos, errors, or inaccuracies, please notify the author immediately. Host [id number] History and physical note* Prashanth Martinez DO - 01/06/2023 11:43 PM EST Images from the original note were not included. History and Physical Date of Admission 01/06/2023 PCP Alisia Rees Chief Complaint/Visit Reason Right knee pain, redness, and swelling History Of Present Illness Yoni Villalpando is a 77 y.o. male with past medical history of COPD, hypertension, heart failure, PAD, remote hx of DVT, and gout who presents to [facility] ED on 01/06/2023 for evaluation of acute right knee redness, swelling and pain. Patient is from [place] and came to [place] to visit his family. 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 Daughter reports that patient has been battling with a non-healing ulcer in his right foot. Patient has been following with a wound doctor. Patient apparently fell into the wall 5 days ago while trying to help his when she was having aseizure. He hit his right elbow and right knee. Of note Patient came to the ED yesterday for evaluation but was discharged home since imaging was negative for any fractures. He was discharged on Keflex. Unfortunately after being discharged from the ED the patient has been experiencing fever, chills as well has generalized malaise and he returnedto the emergency department. Review of Systems Ten systems reviewed and all pertinent positive and negatives are noted in the HPI Past Medical History: Diagnosis Date COPD (chronic obstructive pulmonary disease) (CMS/HCC) Hypertension Past surgical history: Vocal cord tumor removal Left hip surgery in 2017 Family History Problem Relation Name Age of Onset Lung cancer Brother Social History Tobacco Use Smoking status: Former Types: Cigarettes Smokeless tobacco: Never Allergies No Known Allergies Home Medications Current Outpatient Medications Medication Instructions albuterol HFA (PROAIR HFA ; PROVENTIL HFA ; VENTOLIN HFA) 90 mcg/actuation inhaler 2 puffs, inhalation, Every 6 hours PRN amLODIPine (NORVASC) 5 mg, oral, Daily aspirin 81 mg, oral, Daily carvediloL (COREG) 3.125 mg, oral, 2 times daily with meals cephalexin (KEFLEX) 500 mg, oral, 4 times daily cholecalciferol (VITAMIN D-3) 50,000 Units, oral, Weekly dutasteride (AVODART) 0.5 mg, oral, Daily fluticasone propion-salmeteroL (ADVAIR DISKUS) 100-50 mcg/dose diskus inhaler 1 puff, inhalation, 2times daily, Rinse mouth with water after use to reduce aftertaste and incidence of candidiasis. Donot swallow. furosemide (LASIX) 20 mg tablet oral HYDROcodone-acetaminophen (NORCO) 5-325 mg per tablet 1 tablet, oral, Every 6 hours PRN pantoprazole (PROTONIX) 40 mg, oral, Every morning before breakfast, Do not crush, chew, or split. potassium chloride (KLOR-CON M15) 15 mEq CR tablet 15 mEq, oral, Daily, Do not crush or chew. rOPINIRole (REQUIP) 2 mg, oral, Nightly spironolactone (ALDACTONE) 100 mg tablet oral tamsulosin (FLOMAX) 0.4 mg, oral, Daily with breakfast, Capsules should be taken 30 minutes following the same meal each day. tiotropium (SPIRIVA) 18 mcg per inhalation capsule 1 capsule, inhalation, Daily valsartan (DIOVAN) 320 mg, oral, Daily Vitals and Physical Exam Patient Vitals for the past 24 hrs: BP Temp Temp src Pulse Resp SpO2 01/06/23 2316 95/57 37.4 C (99.4 F) Oral 59 -- 93 % 01/06/23 1821 (!) 168/79 (!) 39.4 C (102.9 F) Oral 69 16 100 % There is no height or weight on file to calculate BMI. No intake or output data in the 24 hours ending 01/06/23 2358 Physical Exam Constitutional: Appearance: Normal appearance. HENT: Head: Normocephalic and atraumatic. Mouth/Throat: Comments: Hoarse voice Cardiovascular: Rate and Rhythm: Normal rate and regular rhythm. Pulses: Normal pulses. Heart sounds: Normal heart sounds. Pulmonary: Effort: Pulmonary effort is normal. Breath sounds: Normal breath sounds. Abdominal: General: Bowel sounds are normal. There is no distension. Palpations: Abdomen is soft. Tenderness: There is no abdominal tenderness. Musculoskeletal: General: Swelling present. Comments: Right lower extremity edema from knee down to his foot. Skin: Findings: Erythema present. Comments: There is edema, warmth, and erythema surrounding the right knee and extending down into the anterior leg There is a right lateral foot ulcer Neurological: General: No focal deficit present. Mental Status: He is alert and oriented to person, place, and time. Mental status is at baseline. Psychiatric: Mood and Affect: Mood normal. Recent Lab Results: Admission on 01/06/2023 Component Date Value Ref Range Status Sodium 01/06/2023 134 (L) 136 - 145 mmol/L Final Potassium 01/06/2023 4.1 3.6 - 5.1 mmol/L Final Chloride 01/06/2023 100 98 - 107 mmol/L Final CO2 01/06/2023 27 22 - 32 mmol/L Final Anion Gap 01/06/2023 7 6 - 18 Final Glucose 01/06/2023 115 (H) 70 - 99 mg/dL Final BUN 01/06/2023 17 8 - 20 mg/dL Final Creatinine 01/06/2023 1.26 0.60 - 1.30 mg/dL Final eGFR 01/06/2023 59 (L) >=60 mL/min/1.73m2 Final Calculation based on the Chronic Kidney Disease Epidemiology Collaboration (CKD- EPI) equation refitwithout adjustment for race. BUN/Creatinine Ratio 01/06/2023 13.5 12.0 - 20.0 Final Calcium 01/06/2023 8.6 (L) 8.9 - 10.3 mg/dL Final Lactate 01/06/2023 1.1 0.5 - 2.0 mmol/L Final Sed Rate 01/06/2023 104 (H) 0 - 15 mm/hr Final C-Reactive Protein 01/06/2023 32.6 (H) 0.0 - 1.0 mg/dL Final WBC 01/06/2023 11.4 (H) 4.6 - 10.2 K/mcL Final RBC 01/06/2023 4.28 (L) 4.30 - 5.70 M/mcL Final Hemoglobin 01/06/2023 12.9 (L) 13.5 - 17.5 g/dL Final Hematocrit 01/06/2023 39.6 39.0 - 49.0 % Final MCV 01/06/2023 92.5 80.0 - 97.0 FL Final MCH 01/06/2023 30.1 27.0 - 34.0 pcg Final MCHC 01/06/2023 32.6 30.8 - 35.3 g/dL Final RDW 01/06/2023 13.5 11.0 - 14.8 % Final Platelets 01/06/2023 173 142 - 424 K/mcL Final MPV 01/06/2023 10.7 6.2 - 12.1 FL Final Neutrophils Relative 01/06/2023 77.6 (H) 38.1 - 75.5 % Final Lymphocytes Relative 01/06/2023 13.6 (L) 17.9 - 49.6 % Final Monocytes Relative 01/06/2023 8.2 0.0 - 12.0 % Final Eosinophils Relative 01/06/2023 0.1 0.0 - 7.0 % Final Basophils Relative 01/06/2023 0.1 0.0 - 2.0 % Final Immature Granulocytes Relative 01/06/2023 0.4 0.0 - 1.2 % Final Neutrophils Absolute 01/06/2023 8.82 (H) 1.80 - 7.70 K/mcL Final Lymphocytes Absolute 01/06/2023 1.55 1.00 - 4.80 K/mcL Final Monocytes Absolute 01/06/2023 0.93 (H) 0.00 - 0.90 K/mcL Final Eosinophils Absolute 01/06/2023 0.01 0.00 - 0.70 K/mcL Final Basophils Absolute 01/06/2023 0.01 0.00 - 0.20 K/mcL Final Immature Granulocytes Absolute 01/06/2023 0.04 0.00 - 0.10 K/mcL Final Recent Imaging Findings: XR Knee 4+ Views Right Narrative: EXAMINATION TYPE: XR KNEE 4+ VIEWS RIGHT DATE OF EXAM: 01/06/2023 9:05 PM COMPARISON: Prior day HISTORY: effusion, pain, fever FINDINGS: Negative for erosion of the joint space or periosteal reaction. Trace suprapatellar joint fluid. Fabella. Negative for fracture or dislocation. CT or MRI could further assess the knee if deemed appropriate. Soft tissue swelling can be better assessed with physical exam and correlated with the prior study. Impression: Negative for erosion of the joint space or periosteal reaction. Trace suprapatellar joint fluid. Fabella. Atherosclerotic vascular calcifications are noted. Negative for fracture or dislocation. Soft tissue swelling can be better assessed with physical exam and correlated with the prior study. CT or MRI could further assess the knee if deemed appropriate particularly if there is concern for soft tissue infection. -------- FINAL REPORT -------- Dictated By: Reyes Dixon Dictated Date: 01/06/2023 21:40 Assigned Physician: Reyes Dixon Reviewed and Electronically Signed By: Reyes Dixon Signed Date: 01/06/2023 21:44 Workstation ID: [id number] Transcribed By: Self Edit Transcribed Date: 01/06/2023 21:40 XR Foot 3+ Views Right Narrative: EXAMINATION TYPE: XR FOOT 3+ VIEWS RIGHT DATE OF EXAM: 01/06/2023 7:50 PM HISTORY: worsening chronic lateral foot wound/infection COMPARISON: NONE FINDINGS: No acute fracture. No joint dislocation. Mild degenerative changes at the 1st MTP joint. Small plantar calcaneal enthesophyte. There is a soft tissue ulceration along the lateral foot adjacent to the5th metatarsal head. No discrete adjacent bone erosions or periosteal reaction. Mild generalized soft tissue swelling in the forefoot. Impression: Soft tissue ulceration adjacent to the 5th metatarsal head. Soft tissue swelling in theforefoot, suggesting cellulitis No radiographic findings of acute osteomyelitis. MRI could further evaluate if there is high clinical suspicion. No acute fracture. Mild 1st MTP joint degenerative changes. -------- FINAL REPORT -------- Dictated By: Madhu Blackwell Dictated Date: 01/06/2023 20:07 Assigned Physician: Madhu Blackwell Reviewed and Electronically Signed By: Madhu Blackwell Signed Date: 01/06/2023 20:09 Workstation ID: [id number] Transcribed By: Self Edit Transcribed Date: 01/06/2023 20:07 Impression: Yoni Villalpando is a 77 y.o. male with past medical history of COPD, hypertension, heart failure, PAD, remote hx of DVT, and gout who presents to [facility] ED on 01/06/2023 for evaluation of worsening right knee pain, swelling, fever and chills. On arrival to the emergency department the patient was febrile with temperature 102.9 F, Hypertensive and on room air. Laboratory results significant for CRP 32.6, WBC 11.4 with left shift, ESR 104. X-ray of the right foot without radiologic findings to suggest acute osteomyelitis. Right knee x-raynegative for acute fractures or dislocation. Blood cultures were obtained in the ED. Patient was started on vancomycin and Zosyn and admitted to [facility] with a consultation to orthopedic surgery. Patientunderwent bedside arthrocentesis in the ED and fluid analysis and cultures were sent. Diagnoses: Sepsis, present on admission secondary to below Acute right knee pain, concerning for septic joint vs. Acute crystalopathy Chronic nonhealing right foot ulcer Hx of Gout PAD Hypertension Hyperlipidemia Remote history of DVT COPD Plan: Tele Orthopedic surgery consulted Cont empiric antibiotics pending culture data Will check bilateral duplex of LEs to r/u DVT Will need home medications resumed once reviewed by pharmacy IVFs Daily labs Wound consult PT/OT Moreno: None CVC: None DVT prophylaxis: Lovenox Code Status: Full code, confirmed with patient on admission Disposition: Anticipate discharge in the next 48 hours pending culture results and clinical improvement Prashanth Martinez DO [facility] ([facility]) [employer] Phone: [phone] History and physical note* Prashanth Martinez DO - 01/06/2023 11:43 PM EST Images from the original note were not included. History and Physical Date of Admission 01/06/2023 PCP Alisia Rees Chief Complaint/Visit Reason Right knee pain, redness, and swelling History Of Present Illness Yoni Villalpando is a 77 y.o. male with past medical history of COPD, hypertension, heart failure, PAD, remote hx of DVT, and gout who presents to [facility] ED on 01/06/2023 for evaluation of acute right knee redness, swelling and pain. Patient is from [place] and came to [place] to visit his family. 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 Daughter reports that patient has been battling with a non-healing ulcer in his right foot. Patient has been following with a wound doctor. Patient apparently fell into the wall 5 days ago while trying to help his when she was having aseizure. He hit his right elbow and right knee. Of note Patient came to the ED yesterday for evaluation but was discharged home since imaging was negative for any fractures. He was discharged on Keflex. Unfortunately after being discharged from the ED the patient has been experiencing fever, chills as well has generalized malaise and he returnedto the emergency department. Review of Systems Ten systems reviewed and all pertinent positive and negatives are noted in the HPI Past Medical History: Diagnosis Date COPD (chronic obstructive pulmonary disease) (CMS/HCC) Hypertension Past surgical history: Vocal cord tumor removal Left hip surgery in 2017 Family History Problem Relation Name Age of Onset Lung cancer Brother Social History Tobacco Use Smoking status: Former Types: Cigarettes Smokeless tobacco: Never Allergies No Known Allergies Home Medications Current Outpatient Medications Medication Instructions albuterol HFA (PROAIR HFA ; PROVENTIL HFA ; VENTOLIN HFA) 90 mcg/actuation inhaler 2 puffs, inhalation, Every 6 hours PRN amLODIPine (NORVASC) 5 mg, oral, Daily aspirin 81 mg, oral, Daily carvediloL (COREG) 3.125 mg, oral, 2 times daily with meals cephalexin (KEFLEX) 500 mg, oral, 4 times daily cholecalciferol (VITAMIN D-3) 50,000 Units, oral, Weekly dutasteride (AVODART) 0.5 mg, oral, Daily fluticasone propion-salmeteroL (ADVAIR DISKUS) 100-50 mcg/dose diskus inhaler 1 puff, inhalation, 2times daily, Rinse mouth with water after use to reduce aftertaste and incidence of candidiasis. Donot swallow. furosemide (LASIX) 20 mg tablet oral HYDROcodone-acetaminophen (NORCO) 5-325 mg per tablet 1 tablet, oral, Every 6 hours PRN pantoprazole (PROTONIX) 40 mg, oral, Every morning before breakfast, Do not crush, chew, or split. potassium chloride (KLOR-CON M15) 15 mEq CR tablet 15 mEq, oral, Daily, Do not crush or chew. rOPINIRole (REQUIP) 2 mg, oral, Nightly spironolactone (ALDACTONE) 100 mg tablet oral tamsulosin (FLOMAX) 0.4 mg, oral, Daily with breakfast, Capsules should be taken 30 minutes following the same meal each day. tiotropium (SPIRIVA) 18 mcg per inhalation capsule 1 capsule, inhalation, Daily valsartan (DIOVAN) 320 mg, oral, Daily Vitals and Physical Exam Patient Vitals for the past 24 hrs: BP Temp Temp src Pulse Resp SpO2 01/06/23 2316 95/57 37.4 C (99.4 F) Oral 59 -- 93 % 01/06/23 1821 (!) 168/79 (!) 39.4 C (102.9 F) Oral 69 16 100 % There is no height or weight on file to calculate BMI. No intake or output data in the 24 hours ending 01/06/23 0518 Physical Exam Constitutional: Appearance: Normal appearance. HENT: Head: Normocephalic and atraumatic. Mouth/Throat: Comments: Hoarse voice Cardiovascular: Rate and Rhythm: Normal rate and regular rhythm. Pulses: Normal pulses. Heart sounds: Normal heart sounds. Pulmonary: Effort: Pulmonary effort is normal. Breath sounds: Normal breath sounds. Abdominal: General: Bowel sounds are normal. There is no distension. Palpations: Abdomen is soft. Tenderness: There is no abdominal tenderness. Musculoskeletal: General: Swelling present. Comments: Right lower extremity edema from knee down to his foot. Skin: Findings: Erythema present. Comments: There is edema, warmth, and erythema surrounding the right knee and extending down into the anterior leg There is a right lateral foot ulcer Neurological: General: No focal deficit present. Mental Status: He is alert and oriented to person, place, and time. Mental status is at baseline. Psychiatric: Mood and Affect: Mood normal. Recent Lab Results: Admission on 01/06/2023 Component Date Value Ref Range Status Sodium 01/06/2023 134 (L) 136 - 145 mmol/L Final Potassium 01/06/2023 4.1 3.6 - 5.1 mmol/L Final Chloride 01/06/2023 100 98 - 107 mmol/L Final CO2 01/06/2023 27 22 - 32 mmol/L Final Anion Gap 01/06/2023 7 6 - 18 Final Glucose 01/06/2023 115 (H) 70 - 99 mg/dL Final BUN 01/06/2023 17 8 - 20 mg/dL Final Creatinine 01/06/2023 1.26 0.60 - 1.30 mg/dL Final eGFR 01/06/2023 59 (L) >=60 mL/min/1.73m2 Final Calculation based on the Chronic Kidney Disease Epidemiology Collaboration (CKD- EPI) equation refitwithout adjustment for race. BUN/Creatinine Ratio 01/06/2023 13.5 12.0 - 20.0 Final Calcium 01/06/2023 8.6 (L) 8.9 - 10.3 mg/dL Final Lactate 01/06/2023 1.1 0.5 - 2.0 mmol/L Final Sed Rate 01/06/2023 104 (H) 0 - 15 mm/hr Final C-Reactive Protein 01/06/2023 32.6 (H) 0.0 - 1.0 mg/dL Final WBC 01/06/2023 11.4 (H) 4.6 - 10.2 K/mcL Final RBC 01/06/2023 4.28 (L) 4.30 - 5.70 M/mcL Final Hemoglobin 01/06/2023 12.9 (L) 13.5 - 17.5 g/dL Final Hematocrit 01/06/2023 39.6 39.0 - 49.0 % Final MCV 01/06/2023 92.5 80.0 - 97.0 FL Final MCH 01/06/2023 30.1 27.0 - 34.0 pcg Final MCHC 01/06/2023 32.6 30.8 - 35.3 g/dL Final RDW 01/06/2023 13.5 11.0 - 14.8 % Final Platelets 01/06/2023 173 142 - 424 K/mcL Final MPV 01/06/2023 10.7 6.2 - 12.1 FL Final Neutrophils Relative 01/06/2023 77.6 (H) 38.1 - 75.5 % Final Lymphocytes Relative 01/06/2023 13.6 (L) 17.9 - 49.6 % Final Monocytes Relative 01/06/2023 8.2 0.0 - 12.0 % Final Eosinophils Relative 01/06/2023 0.1 0.0 - 7.0 % Final Basophils Relative 01/06/2023 0.1 0.0 - 2.0 % Final Immature Granulocytes Relative 01/06/2023 0.4 0.0 - 1.2 % Final Neutrophils Absolute 01/06/2023 8.82 (H) 1.80 - 7.70 K/mcL Final Lymphocytes Absolute 01/06/2023 1.55 1.00 - 4.80 K/mcL Final Monocytes Absolute 01/06/2023 0.93 (H) 0.00 - 0.90 K/mcL Final Eosinophils Absolute 01/06/2023 0.01 0.00 - 0.70 K/mcL Final Basophils Absolute 01/06/2023 0.01 0.00 - 0.20 K/mcL Final Immature Granulocytes Absolute 01/06/2023 0.04 0.00 - 0.10 K/mcL Final Recent Imaging Findings: XR Knee 4+ Views Right Narrative: EXAMINATION TYPE: XR KNEE 4+ VIEWS RIGHT DATE OF EXAM: 01/06/2023 9:05 PM COMPARISON: Prior day HISTORY: effusion, pain, fever FINDINGS: Negative for erosion of the joint space or periosteal reaction. Trace suprapatellar joint fluid. Fabella. Negative for fracture or dislocation. CT or MRI could further assess the knee if deemed appropriate. Soft tissue swelling can be better assessed with physical exam and correlated with the prior study. Impression: Negative for erosion of the joint space or periosteal reaction. Trace suprapatellar joint fluid. Fabella. Atherosclerotic vascular calcifications are noted. Negative for fracture or dislocation. Soft tissue swelling can be better assessed with physical exam and correlated with the prior study. CT or MRI could further assess the knee if deemed appropriate particularly if there is concern for soft tissue infection. -------- FINAL REPORT -------- Dictated By: Reyes Dixon Dictated Date: 01/06/2023 21:40 Assigned Physician: Reyes Dixon Reviewed and Electronically Signed By: Reyes Dixon Signed Date: 01/06/2023 21:44 Workstation ID: [id number] Transcribed By: Self Edit Transcribed Date: 01/06/2023 21:40 XR Foot 3+ Views Right Narrative: EXAMINATION TYPE: XR FOOT 3+ VIEWS RIGHT DATE OF EXAM: 01/06/2023 7:50 PM HISTORY: worsening chronic lateral foot wound/infection COMPARISON: NONE FINDINGS: No acute fracture. No joint dislocation. Mild degenerative changes at the 1st MTP joint. Small plantar calcaneal enthesophyte. There is a soft tissue ulceration along the lateral foot adjacent to the5th metatarsal head. No discrete adjacent bone erosions or periosteal reaction. Mild generalized soft tissue swelling in the forefoot. Impression: Soft tissue ulceration adjacent to the 5th metatarsal head. Soft tissue swelling in theforefoot, suggesting cellulitis No radiographic findings of acute osteomyelitis. MRI could further evaluate if there is high clinical suspicion. No acute fracture. Mild 1st MTP joint degenerative changes. -------- FINAL REPORT -------- Dictated By: Madhu Blackwell Dictated Date: 01/06/2023 20:07 Assigned Physician: Madhu Blackwell Reviewed and Electronically Signed By: Madhu Blackwell Signed Date: 01/06/2023 20:09 Workstation ID: [id number] Transcribed By: Self Edit Transcribed Date: 01/06/2023 20:07 Impression: Yoni Villalpando is a 77 y.o. male with past medical history of COPD, hypertension, heart failure, PAD, remote hx of DVT, and gout who presents to [facility] ED on 01/06/2023 for evaluation of worsening right knee pain, swelling, fever and chills. On arrival to the emergency department the patient was febrile with temperature 102.9 F, Hypertensive and on room air. Laboratory results significant for CRP 32.6, WBC 11.4 with left shift, ESR 104. X-ray of the right foot without radiologic findings to suggest acute osteomyelitis. Right knee x-raynegative for acute fractures or dislocation. Blood cultures were obtained in the ED. Patient was started on vancomycin and Zosyn and admitted to [facility] with a consultation to orthopedic surgery. Patientunderwent bedside arthrocentesis in the ED and fluid analysis and cultures were sent. Diagnoses: Sepsis, present on admission secondary to below Acute right knee pain, concerning for septic joint vs. Acute crystalopathy Chronic nonhealing right foot ulcer Hx of Gout PAD Hypertension Hyperlipidemia Remote history of DVT COPD Plan: Tele Orthopedic surgery consulted Cont empiric antibiotics pending culture data Will check bilateral duplex of LEs to r/u DVT Will need home medications resumed once reviewed by pharmacy IVFs Daily labs Wound consult PT/OT Moreno: None CVC: None DVT prophylaxis: Lovenox Code Status: Full code, confirmed with patient on admission Disposition: Anticipate discharge in the next 48 hours pending culture results and clinical improvement Prashanth Martinez DO [facility] ([facility]) documented in this encounterAmerican Academic Health [id number] Emergency department Note* ED Bed Hold Note - Allyson Nava RN - 01/06/2023 8:32 PM EST Bed: ED-02 Expected date: 01/06/23 Expected time: Means of arrival: Comments: [place] [address]25-2023 Emergency department Note* ED Bed Hold Note - Allyson Nava RN - 01/06/2023 8:32 PM EST Bed: ED-11 Expected date: 01/06/23 Expected time: Means of arrival: Comments: [place]y when clean [place] [id number] Miscellaneous Notes* ED Bed Hold Note - Allyson Nava RN - 01/06/2023 8:32 PM EST Bed: ED-02 Expected date: 01/06/23 Expected time: Means of arrival: Comments: [place]y * ED Bed Hold Note - Allyson Nava RN - 01/06/2023 8:32 PM EST Bed: ED-11 Expected date: 01/06/23 Expected time: Means of arrival: Comments: [place] when clean [place] [id number] Hospital Discharge instructions* Discharge Instructions* Morgan Grover MD - 01/05/2023 7:19 PM EST Continue to follow with wound care as scheduled. * Attachments The following attachments cannot be sent through Care Everywhere. * Cellulitis ([place]) * Knee Pain or Injury ([place]) [place] [id number] Emergency department Note* ED Bed Hold Note - Zahra Figueredo - 01/05/2023 6:36 PM EST Bed: ED-21 Expected date: Expected time: Means of arrival: Comments: Britt Villalpando [facility] [id number] Miscellaneous Notes* ED Bed Hold Note - Zahra Bea - 01/05/2023 6:36 PM EST Bed: ED-21 Expected date: Expected time: Means of arrival: Comments: Britt Villalpando documented in this encounterAmerican Academic Health [id number] History of Present illness Narrative* Morgan Grover MD - 01/05/2023 5:45 PM EST Chief Complaint Patient presents with Knee Injury Elbow Pain Patient was helping his while she was having a surgery and injured his right knee and elbow. History of Present Illness: The patient is a 77 y.o. male who presents with right knee pain and right elbow pain. He fell 5 days ago trying to help his . He injured the knee and elbow. He has also been dealing with an ulceration to his right foot that he is seeing the wound clinic to manage. Hepresents today due to ongoing knee pain from the fall. He had a fever when he checked in tonight and did have one last night as well. He has noticed some erythema to the right foot and lower leg thatseems new as well. He has no nausea or vomiting, no headache, no dizziness, no other complaints. Hereports the ulceration is slowly improving. PAST MEDICAL HISTORY: There is no problem list on file for this patient. Past Medical History: Diagnosis Date COPD (chronic obstructive pulmonary disease) ([facility]) Hypertension History reviewed. No pertinent surgical history. No Known Allergies Current Outpatient Medications Medication Instructions albuterol HFA (PROAIR HFA ; PROVENTIL HFA ; VENTOLIN HFA) 90 mcg/actuation inhaler 2 puffs, inhalation, Every 6 hours PRN amLODIPine (NORVASC) 5 mg, oral, Daily aspirin 81 mg, oral, Daily carvediloL (COREG) 3.125 mg, oral, 2 times daily with meals cephalexin (KEFLEX) 500 mg, oral, 4 times daily cholecalciferol (VITAMIN D-3) 50,000 Units, oral, Weekly dutasteride (AVODART) 0.5 mg, oral, Daily fluticasone propion-salmeteroL (ADVAIR DISKUS) 100-50 mcg/dose diskus inhaler 1 puff, inhalation, 2times daily, Rinse mouth with water after use to reduce aftertaste and incidence of candidiasis. Donot swallow. furosemide (LASIX) 20 mg tablet oral HYDROcodone-acetaminophen (NORCO) 5-325 mg per tablet 1 tablet, oral, Every 6 hours PRN pantoprazole (PROTONIX) 40 mg, oral, Every morning before breakfast, Do not crush, chew, or split. potassium chloride (KLOR-CON M15) 15 mEq CR tablet 15 mEq, oral, Daily, Do not crush or chew. rOPINIRole (REQUIP) 2 mg, oral, Nightly spironolactone (ALDACTONE) 100 mg tablet oral tamsulosin (FLOMAX) 0.4 mg, oral, Daily with breakfast, Capsules should be taken 30 minutes following the same meal each day. tiotropium (SPIRIVA) 18 mcg per inhalation capsule 1 capsule, inhalation, Daily valsartan (DIOVAN) 320 mg, oral, Daily No family history on file. SOCIAL HISTORY: Social History Tobacco Use Smoking status: Former Types: Cigarettes Smokeless tobacco: Never Substance Use Topics Alcohol use: Not on file Social History Social History Narrative Not on file REVIEW OF SYSTEMS: As per HPI. All other systems reviewed and negative unless otherwise noted above. PHYSICAL EXAM: ED Triage Vitals [01/05/23 1747] Temp Heart Rate Resp BP (!) 38.3 C (100.9 F) 80 18 (!) 190/87 SpO2 Temp Source Heart Rate Source Patient Position 96 % Tympanic -- -- BP Location FiO2 (%) -- -- CONSTITUTIONAL: Well appearing, no apparent distress. EYES: No scleral icterus. There is no conjunctival pallor. HENT: Mucous membranes moist. External ears normal. CARDIOVASCULAR: Regular rate and rhythm. No pedal edema. PULMONARY/CHEST: Lungs are clear to auscultation bilaterally. No signs of respiratory distress. ABDOMINAL: Soft, nontender, nondistended. MUSCULOSKELETAL: No deformities. Swollen bursa to the right elbow, this is not tender, no warmth orerythema. He also has swelling to the right knee, nl rom. No obvious instability. NEURO: The patient is awake and alert. There are no focal neurologic deficits. SKIN: Warm, well perfused. Skin ulceration right lateral foot on the plantar aspect. Right leg has mild erythema to the mid lower leg. PSYCH: Normal affect. ED STUDIES: Labs Reviewed - No data to display XR Elbow 3+ Views Right Final Result 1. No acute fracture or subluxation or joint effusion. 2. Posttraumatic olecranon bursitis. RIGHT KNEE: The bones are normally mineralized. There is no acute fracture or subluxation. No joint effusion isseen. Joint spaces are well-preserved. No intra-articular loose body is seen. Small enthesophyte noted atthe insertion site of the quadriceps tendon on the superior pole the patella. Soft tissue edema noted about the medial aspect of the knee likely from direct trauma. IMPRESSION: 1. No acute fracture or subluxation or joint effusion. 2. Medial soft tissue edema/contusion from acute trauma. IMPRESSION: -------- FINAL REPORT -------- Dictated By: Jorge Martin Dictated Date: 01/05/2023 18:48 Assigned Physician: Jorge Martin Reviewed and Electronically Signed By: Jorge Martin Signed Date: 01/05/2023 18:51 Workstation ID: [id number] Transcribed By: Self Edit Transcribed Date: 01/05/2023 18:48 XR Knee 4+ Views Right Final Result 1. No acute fracture or subluxation or joint effusion. 2. Posttraumatic olecranon bursitis. RIGHT KNEE: The bones are normally mineralized. There is no acute fracture or subluxation. No joint effusion isseen. Joint spaces are well-preserved. No intra-articular loose body is seen. Small enthesophyte noted atthe insertion site of the quadriceps tendon on the superior pole the patella. Soft tissue edema noted about the medial aspect of the knee likely from direct trauma. IMPRESSION: 1. No acute fracture or subluxation or joint effusion. 2. Medial soft tissue edema/contusion from acute trauma. IMPRESSION: -------- FINAL REPORT -------- Dictated By: Jorge Martin Dictated Date: 01/05/2023 18:48 Assigned Physician: Jorge Martin Reviewed and Electronically Signed By: Jorge Martin Signed Date: 01/05/2023 18:51 Workstation ID: [id number] Transcribed By: Self Edit Transcribed Date: 01/05/2023 18:48 ED COURSE and Medical [place] Making: Vitals: 01/05/23 1745 01/05/23 1747 01/05/23 1843 BP: (!) 190/87 Pulse: 80 Resp: 18 Temp: (!) 38.3 C (100.9 F) 37.8 C (100 F) TempSrc: Tympanic Oral SpO2: 96% Weight: 95.3 kg (210 lb) Height: 1.778 m (70) Medications cephalexin (KEFLEX) capsule 500 mg (has no administration in time range) HYDROcodone-acetaminophen (NORCO) 5-325 mg per tablet 1 tablet (has no administration in time range) Clinical Impressions as of 01/05/231920 Acute pain of right knee Right elbow pain Ulcer of right foot, limited to breakdown of skin (CMS/HCC) Cellulitis of right leg The patient presented due to pain related to a recent fall. He has no acute fracture or dislocation. He has a wound to his right foot unrelated to his fall and now has developed cellulitis of his RLElikely due to the ulceration. He needs to be started on antibiotics for this. He is not ill or toxic. He does not have findings of a septic joint at this time. He will be started on keflex, he will see wound care this week as planned, advised to return if he has worsening symptoms Escalation of care including admission/observation considered -: no evidence he has septic arthritis or is systemically ill, does not require admission Independent interpretation of EKG, rhythm strip, or radiology study? Yes, Plain x-ray: My interpretation is right elbow shows evidence of bursitis, right knee shows soft tissue swelling Discussed with independent historian -: Yes, Spouse Prescription Medication Considered -: Yes: Antibiotic keflex Chronic Conditions Affecting Care -: Yes: copd IMPRESSION: 1. Acute pain of right knee 2. Right elbow pain 3. Ulcer of right foot, limited to breakdown of skin (CMS/HCC) 4. Cellulitis of right leg Procedures Morgan Grover MD 01/05/231924 Morgan Grover MD 01/05/235 documented in this encounterAmerican Academic Health [id number] History and physical note Author Nathen Gonzalez [facility] January 03, 2023 11:02am Note Date/Time January 03, 2023 11:02am [facility] [address] [place] [address] H&P Exam - Wound Care 01/03/23 1056 MR#: [id number] Acct: [id number] Name: YONI VILLALPANDO Rep #:[id number] : 1945 77 From: Nathen Chun PM PCP: Alisia Rees MD Status:REG RCR Location: History of Present Illness Date of Service: 01/03/23 Chief Complaint: Right foot ulceration History of Wound: Mr. Villalpando is a 77-year-old male with a past medical history of coronary artery disease and clean out to the right lower extremity by an outsideprovider. Presenting today to the wound care center [facility] with a chief complaint of right plantar foot ulceration. Patient states he had a callus to the area and then noticed drainage to his sock and now has a full- thickness ulceration. He was seen by urgent care and placed on 2 antibiotics based on culture and sensitivity. He is unfamiliar with what antibiotics he is on. He denies trauma. Denies constitutional symptoms. No other pedal complaints at this time. Progress of Wound: Mr. Villalpando is a 77-year-old male presenting to the wound care center today with a chief complaint of full-thickness ulceration to the right foot. Patient is unsure how the wound happened. He is on 2 antibiotics by urgent care physician. He denies treatment. Denies trauma. Denies constitutional symptoms. No otherpedal complaints at this time. [facility] Home Medications albuterol 90 mcg/actuation aerosol inhaler mcg inhalation .2 puffs PRN SOB 01/03/23 [History Last Taken Unknown] amlodipine 5 mg tablet (Norvasc) 5 mg PO DAILY 01/03/23 [History Last Taken Unknown] apple cider vinegar 01/03/23 [History Last Taken Unknown] aspirin 81 mg tablet,delayed release (Adult Low Dose Aspirin) 81 mg PO DAILY 01/03/23 [History Last Taken Unknown] carvedilol 3.125 mg tablet 3.125 mg PO BID 01/03/23 [History Last Taken Unknown] cholecalciferol (vitamin D3) 1,250 mcg (50,000 unit) capsule 1,250 mcg PO QWEEK 01/03/23 [History Last Taken Unknown] dutasteride 0.5 mg capsule (Avodart) 0.5 mg PO DAILY 01/03/23 [History Last Taken Unknown] fluticasone propionate 115 mcg-salmeterol 21 mcg/actuation HFA inhaler (Advair HFA) 2 inh inhalation DAILY 01/03/23 [History Last Taken Unknown] furosemide 40 mg tablet 40 mg PO QODAY 01/03/23 [History Last Taken Unknown] pantoprazole 40 mg tablet,delayed release 40 mg PO DAILY 01/03/23 [History Last Taken Unknown] potassium chloride 10 mEq tablet,extended release(part/cryst) (Klor-Con M) 10 meq PO DAILY 01/03/23 [History Last Taken Unknown] ropinirole 2 mg tablet 2 mg PO BID 01/03/23 [History Last Taken Unknown] sour hernandez extract 1,000 mg capsule (Tart Hernandez Extract) mg PO 01/03/23 [History Last Taken Unknown] spironolactone 25 mg tablet (Aldactone) 25 mg PO DAILY 01/03/23 [History Last Taken Unknown] tamsulosin 0.4 mg capsule (Flomax) 0.4 mg PO DAILY 01/03/23 [History Last Taken Unknown] tiotropium bromide 18 mcg capsule with inhalation device (Spiriva with HandiHaler) 1 cap inhalation DAILY 01/03/23 [History Last Taken Unknown] valsartan 320 mg tablet (Diovan) 320 mg PO DAILY 01/03/23 [History Last Taken Unknown] Vital Signs Vital Signs Vital Signs: 01/03/23 10:21 Temperature 97.0 F L Temperature Source Temporal Pulse Rate 63 Respiratory Rate 16 Blood Pressure 150/96 H Blood Pressure Mean 114 Blood Pressure Source Monitor Blood Pressure Position Semi-Fowlers Blood Pressure Location Right Arm Weight Weight: 95.254 kg Body Mass Index (BMI) 30.1 Physical Exam Narrative Vascular: DP and PT pulses are monophasic on Doppler. CFT is brisk. Skin temperature is warm to warm from proximal ankle to distal digits. Not pitting edema is appreciated to the right lower extremity. Neurological: Light touch intact. Patient does not respond to painful stimuli. Protective station is diminished. Dermatological: Full-thickness ulceration appreciated to the subfifth metatarsalhead measuring 1.5 x 2.0 x 0.3 cm. Wound base is granular in nature. No probe to bone. Light malodor is appreciated. No erythema or proximal streaking. Excisional debridement down to and including subcutaneous tissue with #15 blade to the subfifth metatarsal ulceration without incident. Predebridement measurement is 1.2 x 1.8 x 0.2 cm. Postdebridement measurement is 1.5 x 2.0 x 0.3 cm. Sanguinous drainage after debridement. Musculoskeletal: Strength is 5 and 5 in all quadrants. No pain on palpation to the full-thickness ulceration on the right foot. No pain with calf compression. Debridement Note Debridement Note Debridement Free Text: Excisional debridement down to and including subcutaneoustissue with #15 blade to the subfifth metatarsal ulceration without incident. Predebridement measurement is 1.2 x 1.8 x 0.2 cm. Postdebridement measurement is 1.5 x 2.0 x 0.3 cm. Sanguinous drainage after debridement. Post-Debridement Measurements and Additional Note: Post-Debridement Measurements/Treatment - Nurse 1 - General Ulcer Assessment Start: 01/03/23 10:20 Freq: Status: Active Protocol: [email or web address].[email or web address] Activity Type Activity Date Activity User E-sign Co-sign Detail Recorded Client Recorded Date Recorded By Document 01/03/23 10:21 NR Desktop 01/03/23 10:39 NR 01/03/23 10:21 - Today's Visit Information Type of service Initial Visit Arrival Mode Ambulatory Patient Identification Verified (Name & Yes ) Height and Weight Height 5 ft 10 in Weight 95.254 kg Weight in Pounds 210.0 lbs Weight Measurement Method Estimated by Patient Body Mass Index (BMI) 30.1 BMI Classification Obese BSA - Elysia 2.13 Vital Signs Temperature (97.8 F-99.1 F) 97.0 F L Temperature Source Temporal Pulse Rate (60-100) 63 Pulse Location Monitor Respiratory Rate (12-18) 16 Respiratory rate source Observation Blood Pressure (90/60-120/80) 150/96 H Blood Pressure Mean 114 Source Monitor Position Semi-Fowlers Blood Pressure Location Right Arm History Since Last Visit- (Skip if this is Patient's initial visit) Left Footwear Regular Shoe Right Footwear Regular Shoe Pain Scale: 0-10 Numeric Is Patient Pain Free? No Right lateral plantar -Description Dull,Throbbing, Aching -Duration (hours) Chronic -Pain Behavior No Change in Behavior Lower Extremity Assessment/ Foot Assessment/ Toe Nail Assessment Right -Posterior Tibial Palpable Yes -Posterior Tibial Doppler Multiphasic -Dorsalis Pedis Palpable Yes -Dorsalis Pedis Doppler Multiphasic -Extremity Color Hyperpigmented -Hair Growth on Legs No -Hair Growth on Toes No -Temperature of Extremity Warm -Capillary Refill Less than 3 Seconds -Blanched when Elevated Yes -Other Deformity Yes: Thickened nails -Thick Yes -Discolored Yes -Deformed No -Improper Length & Hygeine No Neuropathy Assessment Feet - Top Side and Bottom <Entered> (a) Functional Assessment Recent Decline in Ability to Perform Denies Any Declines Assistive Device With Patient No 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 Cultural/Yazidi Needs that may affect No Treatment Plan Teaching: Wound Center Welcome to the Wound Care Center [place] (a) 1 - + WC - Nurse 1 - General Ulcer Measurement Start: 01/03/23 10:20 Freq: Status: Active Protocol: Activity Type Activity Date Activity User E-sign Co-sign Detail Recorded Client Recorded Date Recorded By Document 01/03/23 10:21 NR Desktop 01/03/23 10:39 NRL 01/03/23 10:21 Wound Center Nurse 1 Right lateral plantar -Combined with other wound No -Epithelialization Small 1-33% -Tunneling No -Undermining/Tunneling No -Circular Undermining No -Exudate Amt Medium -Exudate Type Yellow/Green -Wound Margin Thickened -Granulation Amt Medium (34-66%) -Granulation Quality [place] -Necrosis Amt Medium (34-66%) -Necrotic Tissue Type Adherent Slough -Structure Exposed N/A -Texture (Pat-wound Skin Appearance) Assessed -Moisture (Pat-wound Skin Appearance) Assessed -Color (Pat-wound Skin Appearance) Assessed -Temperature (Pat-wound Skin No Abnormality Appearance) (Pt Warm) -Tenderness on Palpation (Pat-wound No Skin Appearance) -Ulcer Cleansing Wound Cleanser -Foul Odor after Cleansing No -Anesthetic Used 4% Lidocaine Solution Lower Limb Edema Present Yes Right Calf (cm) 39.6 Right Ankle (cm) 24.5 Assessment/Plan Assessment/Plan (1) Non-pressure chronic ulcer of other part of right foot with fat layer exposed: CODE(S): L97.512 - Non-pressure chronic ulcer of other part of right foot with fat layer exposed PLAN: Patient was examined evaluated. All findings were discussed with the patient. All questions were answered to the patient satisfaction. Excisional debridement down to and including subcutaneous tissue with #15 blade to the subfifth metatarsal ulceration without incident. Predebridement measurement is 1.2 x 1.8 x 0.2 cm. Postdebridement measurement is 1.5 x 2.0 x 0.3 cm. Sanguinous drainage after debridement. The patient's ulceration was dressed with Betadine soaked gauze dry sterile dressing and a single layer Tubigrip. The patient will be placed in a surgical shoe with offloading pad. He is to change his dressing daily. Patient is continue taking his oral antibiotic as written by outside provider. After discussion with the patient he will be returning to [place] in 10 days. Will make all attempts to get the patient a wound care center contact information and possible establishment at the time of his arrival back to [place]. Patient will follow-up with Dr. Gonzalez for 1 more evaluation and care in1 week. He left the office pleased with the visit. (2) Peripheral vascular disease: CODE(S): I73.9 - Peripheral vascular disease, unspecified (3) Cellulitis: CODE(S): L03.90 - Cellulitis, unspecified QUALIFIERS: Site of cellulitis: extremity Site of cellulitis of extremity: lower extremity Laterality: right Qualified Code(s): L03.115 - Cellulitis of right lower limb (4) Idiopathic neuropathy: CODE(S): G60.9 - Hereditary and idiopathic neuropathy, unspecified 01/03/23 1102 <Electronically signed by Nathen Gonzalez DPM> Cosigner Signature (if applicable): CC: ~ Signed [facility] Work Phone: 1(975) 689-144311-09-2023 History of Present illness Narrative* Matt SHANI Hurtado - 12/21/2022 10:40 AM EST 77 y.o. male presents for evaluation of right foot ulcer that has been ongoing for several weeks. States he has PVD and has been seeing PCP in [place] for this issue but has never been treated at wound clinic for ulcer. Denies fever, foot swelling, fatigue, body aches or any other associated symptoms. Has been using neosporin and otc salve without improvement in symptoms. No other complaints. Vitals: 12/21/22 1058 BP: 173/89 Pulse: 54 Resp: 16 Temp: 36.6 C (97.8 F) SpO2: 95% No Known Allergies Past Medical History: Diagnosis Date COPD (chronic obstructive pulmonary disease) (CMS/HCC) Past Surgical History: Procedure Laterality Date CORONARY STENT PLACEMENT ROS See HPI Physical Exam Vitals and nursing note reviewed. Constitutional: General: He is not in acute distress. Appearance: Normal appearance. He is not ill-appearing or toxic-appearing. Skin: General: Skin is warm and dry. Capillary Refill: Capillary refill takes less than 2 seconds. Findings: Lesion (stg 2 ulcer to lateral distal foot) present. Neurological: General: No focal deficit present. Mental Status: He is alert and oriented to person, place, and time. Psychiatric: Mood and Affect: Mood normal. Behavior: Behavior normal. Assessment/Plan/MDM Yoni was seen today for foot pain. Diagnoses and all orders for this visit: Wound of right foot (Primary) - sulfamethoxazole-trimethoprim (Bactrim DS) 800-160 mg tablet; Take 1 tablet by mouth 2 times a day for 10 days. - cephalexin (Keflex) 500 mg capsule; Take 1 capsule (500 mg) by mouth 2 times a day for 10 days. - Tissue/Wound Culture/Smear Referral to wound clinic as patient plans to be in [place] for the foreseeable future. Wound culture obtained. DSD applied to foot. Patient's clinical presentation is otherwise unremarkable at this time. Patient is discharged with instructions to follow-up with primary care or seek emergency medical attention for worsening symptoms or any new concerns. Matt Mallory CNP [facility] [phone] [facility] Work Phone: [phone]) 420-689112-28-2022 History of Present illness Narrative* Sabrina Lewis PA-C - 02/08/2022 12:51 PM EST Images from the original note were not included. Patient Name: [facility] Location: [facility] [address] [place] [phone] Date Of : Date Of Visit: 1945 02/08/2022 MRN# Provider: [id number] Sabrina Lewis PA-C Chief Complaint Patient presents with Ankle Pain Reports Left ankle pain started yesterday morning - Discolored/ swelling Denies any injuries or falls Assessment & Plan 1. Acute left ankle pain XR Ankle Left 3+ Views (Standard) 2. Acute gout of left ankle, unspecified cause No follow-ups on file. Medical Decision Making XR without acute findings per my read. Radiology read pending. Suspect gout and likely overuse injury. Low concern for DVT and no DVT in many yrs, but pt educated on s/s warranting ER eval. Additional Clinical Comments Discussed over the counter medications for symptomatic management and side effects of medications. Recommended taking all medications with food and to stop medications if they develop any signs of anallergic reaction. Educated patient and/or guardian about signs and symptoms that would warrant further immediate evaluation. Recommended that they should return to urgent care, make an appointment with their family physician, or go to the emergency room if symptoms persist or get acutely worse. Recommended follow upwithin the next week with their PCP or to get established with a PCP soon in order to follow up appropriately. Subjective 76 y.o. male presents with Ankle Pain (Reports Left ankle pain started yesterday morning - Discolored/ swelling Denies any injuries or falls) H/o gout, feels similar. H/o DVTs >10 yrs ago, did drive from [place] on 01/28. Denies calf pain or diffuse leg swelling or redness. No new or worsening CP or SOB. Ankle Pain The incident occurred 12 to 24 hours ago. The incident occurred at home. There was no injury mechanism (NKI, h/o gout, has been less strict on diet during holidays, has been shoveling snow). Pain location: L ankle. Pertinent negatives include no numbness. Review Of Systems Review of Systems Constitutional: Negative for fever. Respiratory: Negative for shortness of breath (COPD, at baseline, no new or worse). Cardiovascular: Negative for chest pain and leg swelling (none other than L ankle). Musculoskeletal: Positive for arthralgias and joint swelling. Negative for gait problem. Skin: Positive for color change (redness near L ankle). Negative for rash and wound. Neurological: Negative for weakness and numbness. Medical History Past Medical History: Diagnosis Date COPD (chronic obstructive pulmonary disease) (HCC) Enlarged prostate Gout Hypertension Past Surgical History: Procedure Laterality Date HERNIA REPAIR HIP SURGERY STENT PLACEMENT There is no problem list on file for this patient. Social History Social History Tobacco Use Smoking status: Former Types: Cigarettes Smokeless tobacco: Never Vaping Use Vaping Use: Never used Substance Use Topics Alcohol use: Never Drug use: Never Family History History reviewed. No pertinent family history. Objective Physical Exam BP 136/83 Pulse (!) 56 Temp 98 F (36.7 C) Resp 16 Wt 97.5 kg (215 lb) SpO2 95% Vision/Hearing Exam:No results found. Physical Exam Vitals and nursing note reviewed. Constitutional: General: He is not in acute distress. Appearance: Normal appearance. He is not ill-appearing, toxic-appearing or diaphoretic. HENT: Head: Normocephalic and atraumatic. Cardiovascular: Pulses: Normal pulses. Pulmonary: Effort: Pulmonary effort is normal. Musculoskeletal: General: Swelling and tenderness present. No deformity. Normal range of motion. Comments: LUE- Localized swelling to L ankle with mild redness and warmth. TTP to medial ankle and hind foot. No diffuse foot or leg swelling. No posterior leg TTP. 2+ pulses. Baseline sensation. Stable gait. Skin: General: Skin is warm and dry. Neurological: Mental Status: He is alert. Psychiatric: Mood and Affect: Mood normal. Procedure Notes Procedures Results No results found for this or any previous visit (from the past 168 hour(s)). XR Ankle Left 3+ Views (Standard) Non-public Result No acute osseous abnormality. Small tibiotalar joint effusion. Workstation ID: [id number] Orders Placed This Visit Orders Placed This Encounter Procedures XR Ankle Left 3+ Views (Standard) Medication List At End Of Visit Current Outpatient Medications Medication Sig Dispense Refill albuterol (PROVENTIL) 2.5 mg /3 mL (0.083 %) nebulizer solution albuterol sulfate 2.5 mg/3 mL (0.083 %) solution for nebulization amLODIPine (NORVASC) 5 MG tablet amlodipine 5 mg tablet ascorbic acid, vitamin C, (vitamin C) 1000 MG tablet Take 1 (one) tablet (1,000 mg total) by mouth daily . b complex vitamins capsule Take 1 (one) capsule by mouth daily . carvediloL (COREG) 3.125 MG tablet Take 1 (one) tablet (3.125 mg total) by mouth 2 (two) times a day . dutasteride (AVODART) 0.5 mg capsule Take 1 (one) capsule (0.5 mg total) by mouth daily . fluticasone propion-salmeteroL (ADVAIR HFA) 115-21 mcg/actuation inhaler Inhale 1 (one) puff 2 (two) times a day Rinse mouth after each use . furosemide (LASIX) 40 MG tablet Take 1 (one) tablet (40 mg total) by mouth 2 (two) times a day . oxygen Inhale Titrated . pantoprazole (PROTONIX) 40 MG tablet Take 1 (one) tablet (40 mg total) by mouth daily . potassium chloride (KLOR-CON) 8 MEQ CR tablet Take 1 (one) tablet (8 mEq total) by mouth daily . rOPINIRole (REQUIP) 2 MG tablet Take 1 (one) tablet (2 mg total) by mouth nightly . spironolactone (ALDACTONE) 25 MG tablet Take 1 (one) tablet (25 mg total) by mouth daily . tamsulosin (FLOMAX) 0.4 mg capsule Take 1 (one) capsule (0.4 mg total) by mouth daily . tiotropium (SPIRIVA) [address] 1 (one) capsule (18 mcg total) into inhaler and inhale daily . valsartan (DIOVAN) 320 MG tablet Take 1 (one) tablet (320 mg total) by mouth daily . vitamin E 400 UNIT capsule Take 1 (one) capsule (400 Units total) by mouth daily . predniSONE (DELTASONE) 20 MG tablet Take 2 tabs once daily x 5 days. . 10 tablet 0 No current facility-administered medications for this visit. Patient Instructions Elevate and ice 3 times daily for 20 minutes. Go to the ER with any new or acutely worsening symptoms. documented in this [id number] Instructions* Patient Instructions* Sabrina Lewis PA-C - 02/08/2022 12:34 PM EST Elevate and ice 3 times daily for 20 minutes. Go to the ER with any new or acutely worsening symptoms. * Attachments The following attachments cannot be sent through Care Everywhere. * Gout ([place]i) [facility]* Diagnosis Acute left ankle pain- Primary Acute gout of left ankle, unspecified cause documented in this encounter [facility] note* Diagnosis Wound of right foot- Primary documented in [facility] encounter [facility] Work Phone: Evaluation note* Diagnosis Acute pain of right knee- Primary Right elbow pain Pain in joint, upper arm Ulcer of right foot, limited to breakdown of skin (CMS/HCC) Cellulitis of right leg documented in this encounter [facility] note* Diagnosis Fever- Primary Fever, unspecified Cellulitis of right lower leg Effusion, right knee Ulcer of foot, chronic, right, with unspecified severity (CMS/HCC) Cellulitis of right lower leg documented in this encounter 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 [facility] Work Phone: Evaluation note* Diagnosis Injury of left great toe, initial encounter- Primary documented in this encounter [facility] note* Diagnosis Acute congestive heart failure, unspecified heart failure type (CMS/HCC)- Primary Acute congestive heart failure, unspecified heart failure type (CMS/HCC) Osteomyelitis, unspecified site, unspecified type (CMS/HCC) Osteomyelitis of foot, left, acute (CMS/HCC) [facility]* Diagnosis Acute congestive heart failure, unspecified heart failure type ([facility]/HCC)- Primary Coronary artery disease involving quechan coronary artery of quechan heart without angina pectoris Cellulitis of right lower leg Hyperlipidemia, unspecified hyperlipidemia type Peripheral arterial disease with history of revascularization ([facility]/HCC) Ischemic cardiomyopathy Other specified forms of chronic ischemic heart disease Left anterior fascicular block (LAFB) documented in this encounter [facility] Discharge instructions* Attachments The following attachments cannot be sent through Care Everywhere. * Preventing Sepsis After You Leave the Hospital: Video ([place]i) * Joint Aspiration: General Info ([place]i) [facility] (narrative)No reason for referral information availableWRegency [facility] Work Phone: Summary Purpose Family History No Family History Records FoundNo Family History Records FoundNo Family History Records FoundNo Family History Records FoundNo Family History Records Found Advance Directives No Advanced Directives Records FoundLatest Code Status on File Code Status Date Activated Date Inactivated Comments Full Code - Confirmed 01/07/2023 2:00 AM 01/09/2023 4: 58 PM This code status was ascertained in the following way: Code status discussion: discussion with patient To update the patient's code status, place a code status order. Do not modify or discontinue any currently active code status orders. Date Activated Date Inactivated Comments 11/09/2023 3:40 AM 11/13/2023 7:[address] atus was ascertained in the following way: Code status discussion: discussion with patient To update the patient's code status, place a code status order. Do not modify or discontinue any currently active code status orders. Date Activated Date Inactivated Comments 11/09/2023 3:01 AM 11/09/2023 3:39 AM This is orde r is used when code status has not been discussed with the patient, or code status is otherwise unknown/unconfirmed To update the patient's code status, place a code status order. Do not modify or discontinue any currently active code status orders. Date Activated Date Inactivated Comments 01/07/2023 2:00 AM 01/09/2023 4:58 PM This code status was ascertained in the following way: Code status discussion: discussion with patient To update the patient's code status, place a code status order. Do not modify or discontinue any currently active code status orders. 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 October 23, 2024 4:04pm History of myocardial infarction [facility] 2024 4:04pm History of throat cancer October 23, 2024 4:04pm Intermittent claudication October 4:04pm Peripheral vascular disease October 232024 4:04pm Polyneuropathy October 23, 2024 4:04pm COPD (chronic obstructive pulmonary dise ase) October 23, 2024 4:04pm Non-pressure chronic ulcer o f other part of left foot with fat layer exposed October 23, 2024 4:04pm Acute painful diabetic polyneuropathy Se ptember 2024 8:45am Pain in left foot November 05, 2024 8:45am Non-pressure chronic ulcer o f other part of left foot with fat layer exposed November 05, 2024 8:45am Chief Complaint Admit Date PAD October 29, 2024 9:38am wound November 05, 2024 8:45am wound November 12, 2024 8: 44am Reason for Visit Admit Date Coronary artery disease October 23, 2024 4:04pm 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 October 23, 2024 4:04pm History of myocardial infarction [facility] 2024 4:04pm History of throat cancer October 23, 2024 4:04pm Intermittent claudication October 4:04pm Peripheral vascular disease October 232024 4:04pm Polyneuropathy October 23, 2024 4:04pm COPD (chronic obstructive pulmonary dise ase) October 23, 2024 4:04pm Non-pressure chronic ulcer o f other part of left foot with fat layer exposed October 23, 2024 4:04pm Acute painful diabetic polyneuropathy Se ptember 2024 8:45am Pain in left foot November 05, 2024 8:45am Non-pressure chronic ulcer o f other part of left foot with fat layer exposed November 05, 2024 8:45am Acute painful diabetic polyneuropathy [facility] 2024 8:44am Non-pressure chronic ulcer o f other part of left foot with fat layer exposed November 12, 2024 8:44am Non-pressure chronic ulcer o f other part of right foot with fat layer exposed November 12, 2024 8:44am Additional Source Comments Reason for Visit (unrecogniz ed section and content) Reason Comments Ankle Pain Reports Left ankle p ain started yesterday morning - Discolored/ swelling Denies any injuries or falls Reason Comments Foot Pain Right foot pain and wound X 3 months Reason Comments Knee Injury Elbow Pain Patient was helping his while she was having a surgery and injured his right knee and elbow. Reason Comments Wound Check Patient arrived with the c/o of right foot wound. Patient also inquired an injury at doctors office. Patient was seen in this ER last night, and told if fever spikes to come back in. Specialty Diagnoses / Procedures Referred By Dante t Referred To Contact Diagnoses Cellulitis of right lower leg Effusion, right knee Procedures Prashanth Fong, DO [address] [place] [address] [facility] [address] [address] [place] [address] Referral ID Status Reason Start Date Expiration Date Visits Re quested Visits Authorized [id number] 1 1 Reason Comments Toe Injury Left foot pain, ariel ent skinned his left foot great toe. Was given cephalexin for injury. Patient with bilateral leg swelling and discoloration. Patient with CHF. Specialty Diagnoses / Procedures Referred By Dante t Referred To Contact Diagnoses Acute congestive heart failure, unspecified heart failure type (CMS/HCC) Procedures Sabrina Parker, DO [address] [place] [address] [facility] [address] [place] [address] Referral ID Status Reason Start Date Expiration Date Visits Re quested Visits Authorized [id number] 1 1 Reason Comments Hospital Follow-up Pt would like to dis cuss changes with medication as he believes it has been working. He is currently down 19 lbs. Care Teams (unrecognized sec tion and content) Loan Documents Closer Relationship Specialty Start Date End Date No, Physician [facility] PCP - General 02/08/22 Loan Documents Closer Relationship Specialty Start Date End Date Physician, No Pcp PCP - General 01/05/23 Loan Documents Closer Relationship Specialty Start Date End Date Alisia Rees MD [address] [address] PCP - General 01/06/23 Team Status: Active Member Role Status Dates Alisia Rees Primary Care Provider Active Team Status: Inactive Member Role Status Dates Dr. Nathen Gonzalez DPM Attending Provider Active Gonzalez Gutierrez CNP Referring Provider Active Eri Crump MD Primary Care Provider Active Loan Documents Closer Relationship Specialty Start Date End Date Alisia Rees MD [address] [address] PCP - General 01/06/23 Loan Documents Closer Relationship Specialty Start Date End Date Alisia Rees MD [address] [address] PCP - General 01/06/23 Team Status: Active Member Role/Relationship Status Dates Dr. Rey Greenwood MD Primary care physician Active Team Status: Active Member Role/Relationship Status Dates Dr. Rey Greenwood MD Primary care physician Active Start: October 21, 2024 Dr. Rey Greenwood MD Nurse Practitioner Active Start: October 21, 2024 Dr. Tex Inman MD Attending physician Active Start: October 21, 2024 Team Status: Inactive Member Role/Relationship Status Dates Dr. Rey Greenwood MD Primary care physician Active Start: October 23, 2024 End: October 23, 2024 Dr. Rey Greenwood MD Attending physician Active Start: October 23, 2024 End: October 23, 2024 Team Status: Active Member Role/Relationship Status Dates Dr. Nathen Gonzalez DPM Attending physician Active Start: November 05, 2024 Aniyah Rogers Referring Provider Active Start : November 05, 2024 Dr. Rey Greenwood MD Primary care physician Active Start: November 05, 2024 Team Status: Active Member Role/Relationship Status Dates Dr. Tex Inman MD Attending physician Active Start: October 29, 2024 Dr. Tex Inman MD Referring Provider Active Start: October 29, 2024 Team Status: Inactive Member Role/Relationship Status Dates Dr. Ntahen Gonzalez DPM Attending physician Active Start: November 05, 2024 End: November 11, 2024 Aniyah Rogers Referring Provider Active Start : November 05, 2024 End: November 11, 2024 Dr. Rey Greenwood MD Primary care physician Active Start: November 05, 2024 End: November 11, 2024 Team Status: Active Member Role/Relationship Status Dates Dr. Nathen Gonzalez DPM Attending physician Active Start: November 12, 2024 Aniyah Rogers Referring Provider Active Start : November 12, 2024 Dr. Rey Greenwood MD Primary care physician Active Start: November 12, 2024 (unrecognized sect ion and content) No Status Records FoundNo Status Records FoundNo Status Records FoundNo Status Records FoundNo Status Records Found INFORMATION SOURCE (unrecogn ized section and content) DATE CREATED AUTHOR 02/13/2022 [facility] DATE CREATED AUTHOR AUTHOR'S ORGANIZ ATION 12/24/2022 [facility] DATE CREATED AUTHOR AUTHOR'S ORGANIZ ATION 11/01/2023 [facility] DATE CREATED AUTHOR AUTHOR'S ORGANIZ ATION 11/22/2023 [facility] DATE CREATED AUTHOR AUTHOR'S ORGANIZ ATION 11/27/2024 [facility] Ordered Prescriptions (unrec ognized section and content) Prescription Sig Dispensed Refills Start Date End Da te valsartan (DIOVAN) 320 mg tablet Take 1 tablet (320 mg total) by mouth 1 (one) time each day. 30 each 0 01/05/2023 02/04/2023 HYDROcodone-acetaminophe n (NORCO) 5-325 mg per tabletIndications:Acute pain of right knee Take 1 tablet by mouth every 6 (six) hours if needed for severe pain for up to 3 days. Max Daily Amount: 4 tablets 12 tablet 0 01/05/2023 01/08/2023 cephalexin (KEFLEX) 500 mg capsule Take 1 capsule (500 mg total) by mouth 4 (four) times a day for 10 days. 40 each 0 01/05/2023 01/15/2023 Prescription Sig Dispensed Refills Start Date End Da te oxyCODONE (ROXICODONE) 5 mg immediate release tablet Take 1 tablet (5 mg total) by mouth every 4 (four) hours if needed (moderate pain or when therapies for mild pain were not effective). Max Daily Amount: 30 mg 15 tablet 0 01/09/2023 amoxicillin-clavulanate (AUGMENTIN) 875-125 mg per tablet Take 1 tablet by mouth every 12 (twelve) hours for 19 doses. 19 each 0 01/09/2023 01/19/2023 Prescription Sig Dispensed Refills Start Date End Da te methylPREDNISolone (MEDROL DOSPAK) 4 mg tablet Take as directed on package. 21 tablet 11/13/2023 11/19/2023 spironolactone (ALDACTONE) 25 mg tablet Take 1 tablet (25 mg total) by mouth 1 (one) time each day. 30 each 5 11/13/2023 05/11/2024 furosemide (LASIX) 40 mg tablet Take 1 tablet (40 mg total) by mouth 1 (one) time each day if needed (edema). 11/13/2023 12/13/2023 sacubitriL-valsartan (ENTRESTO) 24-26 mg per tablet Take 1 tablet by mouth 2 (two) times a day. 60 each 11/13/2023 12/13/2023 metoprolol succinate (TOPROL-XL) 25 mg 24 hr tablet Take 1 tablet (25 mg total) by mouth 1 (one) time each day. Do not crush or chew. 30 each 11 11/14/2023 11/13/2024 dapagliflozin propanediol (FARXIGA) 10 mg tablet Take 1 tablet (10 mg total) by mouth 1 (one) time each day. 30 each 11/14/2023 12/14/2023 aspirin 81 mg EC tablet Take 1 tablet (81 mg total) by mouth 2 (two) times a day. 60 tablet 11/13/2023 atorvastatin (LIPITOR) 40 mg tablet Take 1 tablet (40 mg total) by mouth at bedtime. 30 each 11 11/13/2023 11/12/2024 HYDROcodone-acetaminophe n (NORCO) 5-325 mg per tablet Take 1 tablet by mouth every 4 (four) hours if needed for severe pain for up to 7 days. Max Daily Amount: 6 tablets 28 each 11/10/2023 11/17/2023 aspirin 81 mg EC tablet Take 1 tablet (81 mg total) by mouth 2 (two) times a day. 60 tablet 11/10/2023 11/13/2023 Scheduled Active and Recently Administ ered Medications (unrecognized section and content) Medication Order 01/03/2023 01/04/2023 01/05/2023 cephalexin (KEFLEX) capsule 500 mg (COMPLETED) 500 mg, oral, Once, On Sun01/05/23 at 1918, For 1 dose, Indication: Skin/Soft Tissue 1933 (Given - Provid er: Demetra Mcconnell RN) HYDROcodone-acetaminophen (NORCO) 5-325 mg per tablet 1 tablet (COMPLETED) 1 tablet, oral, Once, On Sun01/05/23 at 1918, For 1 dose 1933 (Given - Provid er: Demetra Mcconnell RN) Scheduled Medication Order 01/07/2023 01/08/2023 01/09/2023 amLODIPine (NORVASC) tablet 5 mg 5 mg, oral, Daily, First dose on Sun01/08/23 at 1045 1224 (Given - Provider: Amy Roberts RN) 1026 (Given - Provider: Natividad Muniz, MARIANA - Comment: priority of care) amoxicillin-clavulanate (AUGMENTIN) 875-125 mg per tablet 1 tablet 1 tablet, oral, Every 12 hours scheduled, First dose on Sun01/09/23 at 1045, For 10 days, Indication: Skin/Soft Tissue 1026 (Given - Provider: Natividad Muniz, RN - Comment: priority of care) aspirin chewable tablet 81 mg 81 mg, oral, Daily, First dose on Sun01/08/23 at 1045 1218 (Given - Provider: Amy Roberts RN) 1026 (Given - Provider: Natividad Muniz, RN - Comment: priority of care) budesonide (PULMICORT) 0.5 mg/2 mL nebulizer solution 0.5 mg(Linked Group 1) 0.5 mg, nebulization, Daily, First dose on Sun01/08/23 at 1130, Rinse mouth with water after use to reduce aftertaste and incidence of candidiasis. Do not swallow. Therapeutic substitution for ADVAIR DISKUS 100/50 is budesonide neb daily and formoterol neb twice daily. 1257 (Given - Provider: Bailey Helm) 0838 (Given - Provider: Desi Amezcua) carvediloL (COREG) tablet 3.125 mg 3.125 mg, oral, 2 times daily with meals, First dose on Sun01/08/23 at 1700 1804 (Given - Provider: Amy Roberts RN) 1026 (Given - Provider: Natividad Muniz, RN - Comment: priority of care) cefTRIAXone (ROCEPHIN) IV syringe 2 g (CANCELED) 2 g, intravenous, at 400 mL/hr, Administer over 3 Minutes, Every 24 hours, First dose on Sun01/07/23 at 0230, For 5 days, Do not administer simultaneously with any calcium containing solutions via a Y-site in any patient., Indication: Other, Skin/Soft Tissue, Specify: Purulent Cellulitis 0246 (Given - Provider: Aureliano Arita RN) 0216 (Given - Provider: Viola Casas RN) 0324 (Given - Provider: Amalia Roberts RN) cholecalciferol (VITAMIN D-3) capsule 50,000 Units 50,000 Units, oral, Weekly, First dose on Sun01/08/23 at 1100 1000 (Not Given - Provider: Amy Roberts RN - Reason: Other - Comment: patient does not take weekly) enoxaparin (LOVENOX) injection 40 mg 40 mg, subcutaneous, Every 24 hours scheduled, First dose on Sun01/07/23 at 0900, Indication: VTE/PE Prophylaxis 1057 (Given - Provider: Peggy Gustafson, MARIANA - Comment: patient assignment number of patietns required for RN to manage does not allow for timely administration of medications nor tasks) 0837 (Given - Provider: Amy Roberts RN) 1026 (Given - Provider: Natividad Muniz, MARIANA - Comment: priority of care) finasteride (PROSCAR) tablet 5 mg 5 mg, oral, Daily, First dose on Sun01/08/23 at 1100, HAZARDOUS Drug Precautions - Low Risk (Category A/NIOSH Group 3) Reproductive Risk Only: - Do NOT split, crush, or open dosage units - Single pair of ASTM standard D6978 certified chemotherapy gloves - Eye protection (goggles or face shield) required only with a potential for facial contact (i.e. concern for spitting or vomiting of the dose during or after administration) 1218 (Given - Provider: Amy Roberts, MARIANA) 1026 (Given - Provider: Natividad Muniz, RN - Comment: priority of care) formoterol (PERFOROMIST) 20 mcg/2 mL nebulizer solution 20 mcg(Linked Group 1) 20 mcg, nebulization, 2 times daily, First dose on Sun01/08/23 at 1130, Therapeutic substitution for ADVAIR DISKUS 100/50 is budesonide neb daily and formoterol neb twice daily. 1257 (Given - Provider: Bailey Helm)2108 (Given - Provider: Radha Lawson) 0838 (Given - Provider: Desi Amezcua) furosemide (LASIX) tablet 40 mg 40 mg, oral, Daily, First dose on Sun01/08/23 at 1115 1219 (Given - Provider: Amy Roberts RN) 1026 (Given - Provider: Natividad Muniz, RN - Comment: priority of care) gadoterate meglumine (CLARISCAN, DOTAREM) injection 20 mL (COMPLETED) 20 mL, intravenous, Once in imaging, Starting on Sun01/07/23 at 0914, For 1 dose 0914 (Given - Provider: Steve Lau) pantoprazole (PROTONIX) EC tablet 40 mg 40 mg, oral, Every morning before breakfast, First dose on Sun01/09/23 at 0700, Do not crush, chew, or split. 0618 (Given - Provider: Amalia Roberts RN) potassium chloride (KLOR-CON M10) CR tablet 15 mEq 15 mEq, oral, Daily, First dose on Sun01/08/23 at 1045, Best given with food and plenty of water to minimize gastric irritation. Tablet may be swallowed whole (do not crush/chew/suck on) OR broken in half and each half swallowed separately OR dissolved (whole tablet) in ~4 ounces of water (allow ~2 minutes to dissolve, stir well and administer immediately). 1218 (Given - Provider: Amy Roberts RN) 1026 (Given - Provider: Natividad Muniz, RN - Comment: priority of care) revefenacin (YUPELRI) 175 mcg/3 mL nebulizer solution 175 mcg 175 mcg, nebulization, Daily, First dose on Sun01/08/23 at 1045 1258 (Given - Provider: Bailey Helm) 0837 (Given - Provider: Desi Amezcua) rOPINIRole (REQUIP) tablet 2 mg 2 mg, oral, 2 times daily, First dose on Sun01/08/23 at 1045 1218 (Given - Provider: Amy Roberts RN)2104 (Given - Provider: Amalia Roberts, MARIANA) 1026 (Given - Provider: Natividad Muniz, RN - Comment: priority of care) sodium chloride 0.9 % flush 10 mL(Linked Group 2) 10 mL, intravenous, 2 times daily, First dose on Sun01/07/23 at 0230 0225 (Given - Provider: Aureliano Arita, RN)1057 (Given - Provider: Peggy Gustafson, MARIANA - Comment: patient assignment number of patietns required for RN to manage does not allow for timely administration of medications nor tasks)2058 (Given - Provider: Viola Casas RN) 0849 (Canceled Entry - Provider: Amy Roberts, MARIANA)2107 (Given - Provider: Amalia Roberts, RN) 1028 (Given - Provider: Natividad Muniz, RN) spironolactone (ALDACTONE) tablet 25 mg 25 mg, oral, Daily, First dose on Sun01/08/23 at 1045, HAZARDOUS Drug Precautions - Low Risk (Category A/NIOSH Group 3) Reproductive Risk Only: - Single pair of ASTM standard D6978 certified chemotherapy gloves - Eye protection (goggles or face shield) required only with a potential for facial contact (i.e. concern for spitting or vomiting of the dose during or after administration) - Staff at reproductive risk (actively trying to conceive, or may be become , and ): chemo certified gown and an N95 respirator required when crushing meds (crushing of tabs allowed only in closed pouches) or opening of capsules only for allowable dosage forms 1218 (Given - Provider: Amy Roberts RN) 1026 (Given - Provider: Natividad Muniz, MARIANA - Comment: priority of care) tamsulosin (FLOMAX) 24 hr capsule 0.4 mg 0.4 mg, oral, Daily with breakfast, First dose on Tu01/09/23 at 0800, For oral administration: capsules should be swallowed whole (Do not crush, chew, or open). For tube administration: open capsule and administer with water (granules should NOT be crushed). 1026 (Given - Provider: Natividad Muniz, RN - Comment: priority of care) valsartan (DIOVAN) tablet 320 mg 320 mg, oral, Daily, First dose on 01/08/23 at 1045 1218 (Given - Provider: Amy Roberts RN) 1026 (Given - Provider: Natividad Muniz, MARIANA - Comment: priority of care) vancomycin (VANCOCIN) 2,500 mg in sodium chloride 0.9 % 500 mL IVPB (COMPLETED) 2,500 mg (rounded from 2,382.5 mg = 25 mg/kg 95.3 kg), intravenous, at 200 mL/hr, Administer over 150 Minutes, Once, On 01/06/23 at 2246, For 1 dose, Indication: Bacteremia 0006 (New Bag - Provider: Roberto Cunningham, EMT-P)0247 (Stopped - Provider: Aureliano Arita RN) vancomycin (VANCOCIN) 750 mg in sodium chloride 0.9 % 250 mL IVPB (CANCELED) 750 mg, intravenous, at 250 mL/hr, Administer over 60 Minutes, Every 12 hours, First dose (after last modification) on 01/07/23 at 1500, For 5 days, Indication: Skin/Soft Tissue 1416 (New Bag - Provider: Peggy Gustafson, RN)1630 (Stopped - Provider: Peggy Gustafson RN) 0216 (New Bag - Provider: Viola Casas RN)1630 (New Bag - Provider: Amy Roberts RN - Comment: No IV access) 0327 (New Bag - Provider: Amalia Roberts RN)0435 (Stopped - Provider: Amalia Roberts RN) Continuous Medication Order 01/07/2023 01/08/2023 01/09/2023 sodium chloride 0.9 % infusion () 100 mL/hr, intravenous, Continuous, Starting on 01/07/23 at 0014, For 24 hours 0220 (Canceled Entry - Provider: Aureliano Arita RN)0223 (New Bag - Provider: Aureliano Arita RN)1416 (New Bag - Provider: Peggy Gustafson RN) 0218 (Stopped - Provider: Viola Casas RN) PRN Medication Order 01/07/2023 01/08/2023 01/09/2023 acetaminophen (TYLENOL) tablet 650 mg 650 mg, oral, Every 6 hours PRN, mild pain, Starting on 01/07/23 at 0200 1523 (Given - Provider: Peggy Gustafson RN) 0401 (Given - Provider: Viola Casas RN) 1026 (Given - Provider: Natividad Muniz RN - Comment: priority of care) bisacodyL (DULCOLAX) EC tablet 10 mg 10 mg, oral, Daily PRN, constipation, Starting on 01/07/23 at 0200, 1st line for treatment of constipation - give scheduled if no bowel movement in past 24 hours. Do not crush, chew, or split. ketorolac (TORADOL) injection 15 mg 15 mg, intravenous, Every 6 hours PRN, severe pain, Starting on 01/07/23 at 0016, For 5 days 1523 (Given - Provider: Peggy Gustafson RN) naloxone (NARCAN) injection 0.04 mg 0.04 mg, intravenous, As needed, opioid reversal, IV Push every 1 min for 10 doses, Starting on 01/07/23 at 0200, For 10 doses, To Dilute: -Use 0.4 mg/mL vial , withdraw 1 mL and add 9 mL NS -FOLLOWING DILUTION, dose of 0.04 mg = 1 mL For PARTIAL Opioid Reversal: -For respiratory rate LESS than 8 or [place]ero Opioid-induced Sedation Scale (POSS) GREATER than OR equal to 3 -May be repeated at 1 minute intervals to restore adequate respirations -Administer up to 10 doses (0.4 mg) ondansetron (PF) (ZOFRAN) injection 4 mg(Linked Group 3) 4 mg, intravenous, Every 8 hours PRN, vomiting, nausea, Starting on 01/07/23 at 0200, -ONLY give IV if patient is unable to take orally. -If inadequate response within 30 minutes, proceed to next-line agent or contact provider if no further options ordered. ondansetron ODT (ZOFRAN-ODT) disintegrating tablet 4 mg(Linked Group 3) 4 mg, oral, Every 8 hours PRN, vomiting, nausea, Starting on 01/07/23 at 0200, -Give IV if patient is unable to take orally. -If inadequate response within 30 minutes, proceed to next-line agent or contact provider if no further options ordered. For ODT tablets: -Do not remove from blister pack until just before administering. -Patient should allow tablet to dissolve on tongue. oxyCODONE (ROXICODONE) immediate release tablet 10 mg 10 mg, oral, Every 4 hours PRN, severe pain or when therapies for moderate pain were not effective, Starting on 01/07/23 at 0200 1631 (Given - Provider: Peggy Gustafson, RN) 1218 (Given - Provider: Amy Roberts, MARIANA) oxyCODONE (ROXICODONE) immediate release tablet 5 mg 5 mg, oral, Every 4 hours PRN, moderate pain or when therapies for mild pain were not effective, Starting on 01/07/23 at 0200 0216 (Given - Provider: Viola Casas, MARIANA) Oxygen Therapy, Adult inhalation, As needed, shortness of breath, Starting on Sun01/07/23 at 0200, Device: Nasal Cannula, Titrate Oxygen to keep O2 Sat. at or above: 92% sodium chloride 0.9 % flush 10 mL(Linked Group 2) 10 mL, intravenous, As needed, line care, Starting on 01/07/23 at 0200 Linked Groups Order Group 1: budesonide (PULMICORT) 0.5 mg/2 mL nebulizer solution 0.5 mgJump to med 0.5 mg, nebulization, Daily, First dose on 01/08/23 at 1130
Rinse mouth with water after use to reduce aftertaste and incidence of candidiasis. Do not swallow. Therapeutic substitution for ADVAIR DISKUS 100/50 is budesonide neb daily and formoterol neb twice daily.
And formoterol (PERFOROMIST) 20 mcg/2 mL nebulizer solution 20 mcgJump to med 20 mcg, nebulization, 2 times daily, First dose on 01/08/23 at 1130
Therapeutic substitution for ADVAIR DISKUS 100/50 is budesonide neb daily and formoterol neb twice daily.
Group 2: Insert peripheral IV (CANCELED) STAT, Once, On 01/07/23 at 0201, For 1 occurrence And Maintain IV access (CANCELED) Until discontinued, Starting on 01/07/23 at 0201, Until Specified And Saline lock IV (CANCELED) Routine, Once, On 01/07/23 at 0201, For 1 occurrence And sodium chloride 0.9 % flush 10 mLJump to med 10 mL, intravenous, 2 times daily, First dose on 01/07/23 at 0230 And sodium chloride 0.9 % flush 10 mLJump to med 10 mL, intravenous, As needed, line care, Starting on 01/07/23 at 0200 Group 3: ondansetron ODT (ZOFRAN-ODT) disintegrating tablet 4 mgJump to med 4 mg, oral, Every 8 hours PRN, vomiting, nausea, Starting on 01/07/23 at 0200
-Give IV if patient is unable to take orally. -If inadequate response within 30 minutes, proceed to next-line agent or contact provider if no further options ordered. For ODT tablets: -Do not remove from blister pack until just before administering. -Patient should allow tablet to dissolve on tongue.
Or ondansetron (PF) (ZOFRAN) injection 4 mgJump to med 4 mg, intravenous, Every 8 hours PRN, vomiting, nausea, Starting on 01/07/23 at 0200
-ONLY give IV if patient is unable to take orally. -If inadequate response within 30 minutes, proceed to next-line agent or contact provider if no further options ordered.
Scheduled Medication Order 11/11/2023 11/12/2023 11/13/2023 allopurinoL (ZYLOPRIM) tablet 100 mg 100 mg, oral, Daily, First dose on Sun11/09/23 at 0900 0926 (Given - Provider: Wilfrid Maloclm RN) 0859 (Given - Provider: Aide Nieves LPN) 1000 (Pump Refill - Provider: Danny Fuller LPN) aspirin EC tablet 81 mg 81 mg, oral, 2 times daily, First dose (after last modification) on 11/11/23 at 0900, Recovery & On Unit, Do not crush, chew, or split., Indication: VTE/PE Prophylaxis 926 (Given - Provider: Wilfrid Malcolm RN)2025 (Given - Provider: Meghan Ferro RN) 08 (Given - Provider: Aide Nieves LPN)2054 (Given - Provider: Juliocesar Scales LPN) 1000 (Pump Refill - Provider: Danny Fuller LPN) atorvastatin (LIPITOR) tablet 40 mg 40 mg, oral, Nightly, First dose on 11/11/23 at 2100 2025 (Given - Provider: Meghan Ferro RN) 2054 (Given - Provider: Juliocesar Scales LPN) dapagliflozin propanediol (FARXIGA) tablet 10 mg 10 mg, oral, Daily, First dose on 11/11/23 at 0900, Was patient receiving dapagliflozin prior to admission for the treatment of HEART FAILURE? (See order restrictions above): No, Is dapagliflozin being started inpatient for the treatment of HEART FAILURE? Yes 0944 (Given - Provider: Wilfrid Malcolm RN) 0858 (Given - Provider: Aide Nieves LPN) 0959 (Pump Refill - Provider: Danny Fuller LPN) docusate sodium (COLACE) capsule 100 mg 100 mg, oral, 2 times daily, First dose on Sun11/12/23 at 1045 1120 (Given - Provider: Aide Nieves LPN)2054 (Given - Provider: Juliocesar Scales LPN) 0959 (Pump Refill - Provider: Danny Fuller LPN) ferric gluconate (FERRLECIT) 250 mg in sodium chloride 0.9 % 120 mL IVPB 250 mg, intravenous, at 60 mL/hr, Administer over 120 Minutes, Daily, First dose on 11/11/23 at 1230, For 3 days 1231 (New Bag - Provider: Wilfrid Malcolm RN)1418 (Stopped - Provider: Wilfrid Malcolm RN) 1113 (Not Given - Provider: Sonali Del Real RN - Reason: Other - Comment: Per Alba Martin NP) 1127 (New Bag - Provider: Amy Roberts RN)1327 (Stopped - Provider: Danny Fuller LPN) finasteride (PROSCAR) tablet 5 mg 5 mg, oral, Daily, First dose on Sun11/09/23 at 0900, HAZARDOUS Drug Precautions - Low Risk (Category A/NIOSH Group 3) Reproductive Risk Only: - Do NOT split, crush, or open dosage units - Single pair of ASTM standard D6978 certified chemotherapy gloves - Eye protection (goggles or face shield) required only with a potential for facial contact (i.e. concern for spitting or vomiting of the dose during or after administration) 0926 (Given - Provider: Wilfrid Malcolm RN) 0859 (Given - Provider: Aide iNeves LPN) 1000 (Pump Refill - Provider: Danny Fuller LPN) ipratropium-albuteroL (DUONEB) 0.5-2.5 mg/3 mL nebulizer solution 3 mL 3 mL, nebulization, 4 times daily, First dose on Sun11/09/23 at 0351 0742 (Given - Provider: Jackie Brunson)1131 (Given - Provider: Jackie Brunson)1527 (Given - Provider: Jackie Brunson)1944 (Given - Provider: Мария Decker) 0857 (Not Given - Provider: Gita Ivey - Reason: Patient not available - Comment: pt with mattress spring encaser then eating)1204 (Given - Provider: Gita Ivey)1609 (Given - Provider: Bailey Helm)1955 (Given - Provider: Wilfrid Chavez) 0827 (Given - Provider: Gita Ivey)1208 (Given - Provider: Gita Ivey)1642 (Not Given - Provider: Bailey Helm - Reason: Patient not available - Comment: not in room) methylPREDNISolone sodium succ (SOLU-Medrol) injection 60 mg (CANCELED) 60 mg, intravenous, Every 12 hours scheduled, First dose (after last modification) on Sun11/12/23 at 1300, Reconstitute each 125 mg vial with 2 mL sterile water for injection to a concentration of 62.5 mg/mL. 1250 (Given - Provider: Sonali Del Real, MARIANA)2107 (Given - Provider: Alisia Ríos RN) methylPREDNISolone sodium succ (SOLU-Medrol) injection 60 mg 60 mg, intravenous, Every 6 hours scheduled, First dose (after last modification) on Sun11/13/23 at 1200, Reconstitute each 125 mg vial with 2 mL sterile water for injection to a concentration of 62.5 mg/mL. 1127 (Given - Provider: Amy Roberts RN)1800 (Canceled Entry - Provider: Automatic Discharge Provider - Comment: Automatically canceled at discontinue of medication order) metoprolol succinate (TOPROL-XL) 24 Hour tablet 25 mg 25 mg, oral, Daily, First dose on Sun11/11/23 at 0900, Do not crush or chew. 0926 (Given - Provider: Wilfrid Malcolm RN) 0901 (Given - Provider: Aide Nieves LPN) 0959 (Pump Refill - Provider: Danny Fuller LPN) pantoprazole (PROTONIX) EC tablet 40 mg 40 mg, oral, Every morning before breakfast, First dose on Sun11/09/23 at 0819, Do not crush, chew, or split. 0944 (Given - Provider: Wilfrid Malcolm RN) 0751 (Given - Provider: Meghan Ferro RN) 0648 (Given - Provider: Juliocesar Scales LPN) polyethylene glycol (MIRALAX) packet 17 g 17 g, oral, Daily, First dose on Sun11/12/23 at 1045 1120 (Given - Provider: Aide Nieves LPN) 0959 (Pump Refill - Provider: Danny Fuller LPN) rOPINIRole (REQUIP) tablet 2 mg 2 mg, oral, 2 times daily, First dose on Sun11/09/23 at 0900 0927 (Given - Provider: Wilfrid Malcolm RN)2025 (Given - Provider: Meghan Ferro RN) 0900 (Given - Provider: Aide Nieves LPN)2054 (Given - Provider: Juliocesar Scales LPN) 0959 (Pump Refill - Provider: Danny Fuller LPN) sacubitriL-valsartan (ENTRESTO) 24-26 mg per tablet 1 tablet 1 tablet, oral, 2 times daily, First dose on Sun11/11/23 at 0900, Contraindicated in combination with ENRIKE inhibitors. Ensure a minimum of 36 hours between any ENRIKE inhibitor dose and sacubitril-valsartan. 09 (Given - Provider: Wilfrid Malcolm RN)2025 (Given - Provider: Meghan Ferro RN) 0859 (Given - Provider: Aide Nieves LPN)2054 (Given - Provider: Juliocesar Scales LPN) 1115 (Given - Provider: Danny Fuller LPN) sodium chloride 0.9 % flush 10 mL(Linked Group 1) 10 mL, intravenous, 2 times daily, First dose on Sun11/09/23 at 0900 0945 (Canceled Entry - Provider: Wilfrid Malcolm RN - Comment: IV INFUSING)2025 (Given - Provider: Meghan Ferro RN) 1243 (Not Given - Provider: Sonali Del Real RN - Reason: Other)2058 (Given - Provider: Juliocesar Scales LPN) 1008 (Given - Provider: Danny Fuller LPN) tamsulosin (FLOMAX) 24 hr capsule 0.4 mg 0.4 mg, oral, Daily with breakfast, First dose on Sun11/09/23 at 0819, For oral administration: capsules should be swallowed whole (Do not crush, chew, or open). For tube administration: open capsule and administer with water (granules should NOT be crushed). 09 (Given - Provider: Wilfrid Malcolm RN) 0858 (Given - Provider: Aide Nieves LPN) 0846 (Pump Refill - Provider: Danny Fuller LPN) Continuous Medication Order 11/11/2023 11/12/2023 11/13/2023 lactated Ringer's infusion 20 mL/hr, intravenous, Continuous, Starting on 11/10/23 at 1045, Preprocedure, DC orders when pt leaves PACU, On hold since 11/11/2023 at 0754 until manually unheld 0754 (Held by provider - Provider: Tramaine Perez, - Reason: Other)0756 (Stopped - Provider: Wilfrid Malcolm RN) 1901 (Unheld by provider - Provider: Automatic Discharge Provider) sodium chloride 0.9 % infusion 75 mL/hr, intravenous, Continuous, Starting on Sun11/09/23 at 1327, On hold since Sun11/11/2023 at 0754 until manually unheld 0754 (Held by provider - Provider: Tramaine Perez DO - Reason: Other)0756 (Stopped - Provider: Wilfrid Malcolm RN) 190 (Unheld by provider - Provider: Automatic Discharge Provider) sodium chloride 0.9 % infusion 20 mL/hr, intravenous, Continuous, Starting on Sun11/10/23 at 1045, Preprocedure PRN Medication Order 11/11/2023 11/12/2023 11/13/2023 acetaminophen (TYLENOL) tablet 650 mg 650 mg, oral, Every 6 hours PRN, mild pain, Starting on Sun11/09/23 at 0301 albuterol 2.5 mg /3 mL (0.083 %) nebulizer solution 2.5 mg 2.5 mg, nebulization, Every 6 hours PRN, wheezing, Starting on Sun11/09/23 at 0816 bisacodyL (DULCOLAX) suppository 10 mg 10 mg, rectal, Daily PRN, constipation, Starting on Sun11/12/23 at 1016, Use second-line prn constipation in addition to MOM after 24hr of use of MOM use HYDROcodone-acetaminophen (NORCO) 5-325 mg per tablet 1 tablet 1 tablet, oral, Every 6 hours PRN, moderate pain, Starting on 11/10/23 at 1336, Recovery & On Unit HYDROcodone-acetaminophen (NORCO) 5-325 mg per tablet 2 tablet 2 tablet, oral, Every 6 hours PRN, severe pain, Starting on Sun11/10/23 at 1336, Recovery & On Unit magnesium hydroxide (MILK OF MAGNESIA) 400 mg/5 mL suspension 15 mL 15 mL, oral, 2 times daily PRN, constipation, Starting on Sun11/12/23 at 1016, Follow dose with 8 oz of water. use first-line prn constipation morphine 2 mg/mL injection 2 mg 2 mg, intravenous, Every 4 hours PRN, breakthrough pain, Starting on Sun11/10/23 at 1336, Recovery & On Unit ondansetron (PF) (ZOFRAN) injection 4 mg(Linked Group 2) 4 mg, intravenous, Every 8 hours PRN, vomiting, nausea, Starting on Sun11/09/23 at 0301, -ONLY give IV if patient is unable to take orally. -If inadequate response within 30 minutes, proceed to next-line agent or contact provider if no further options ordered. ondansetron ODT (ZOFRAN-ODT) disintegrating tablet 4 mg(Linked Group 2) 4 mg, oral, Every 8 hours PRN, vomiting, nausea, Starting on Sun11/09/23 at 0301, -Give IV if patient is unable to take orally. -If inadequate response within 30 minutes, proceed to next-line agent or contact provider if no further options ordered. For ODT tablets: -Do not remove from blister pack until just before administering. -Patient should allow tablet to dissolve on tongue. prochlorperazine (COMPAZINE) injection 10 mg(Linked Group 3) 10 mg, intravenous, Every 6 hours PRN, nausea, vomiting, Starting on Sun11/09/23 at 0301, 2nd Line Option: -ONLY give IV if patient is unable to take orally. -Give IM if patient does not have IV Access -If inadequate response within 30 minutes, proceed to next-line agent or contact provider if no further options ordered. prochlorperazine (COMPAZINE) suppository 25 mg(Linked Group 3) 25 mg, rectal, Every 12 hours PRN, nausea, vomiting, Starting on Sun11/09/23 at 0301, 2nd Line Option: -ONLY give AR if patient is unable to take orally and cannot receive IV/IM. -If inadequate response within 30 minutes, proceed to next-line agent or contact provider if no further options ordered. prochlorperazine (COMPAZINE) tablet 10 mg(Linked Group 3) 10 mg, oral, Every 6 hours PRN, nausea, vomiting, Starting on Sun11/09/23 at 0301, 2nd Line Option: -Give IV or IM if patient is unable to take orally. -If inadequate response within 30 minutes, proceed to next-line agent or contact provider if no further options ordered. senna-docusate (PERICOLACE) 8.6-50 mg per tablet 1 tablet 1 tablet, oral, 2 times daily PRN, constipation, Starting on Sun11/09/23 at 0301, Bowel Regimen - for prevention of constipation Use third-line prn constipation in addition to MOM and bisacodyl after 24hr of use of MOM and bisacodyl use 174 (Given - Provider: Aide Nieves LPN) sodium chloride 0.9 % flush 10 mL(Linked Group 1) 10 mL, intravenous, As needed, line care, Starting on Sun11/09/23 at 0301 Linked Groups Order Group 1: Insert peripheral IV (COMPLETED) STAT, Once, On Sun11/09/23 at 0302, For 1 occurrence And Maintain IV access (CANCELED) Until discontinued, Starting on Sun11/09/23 at 0302, Until Specified And Saline lock IV (COMPLETED) Routine, Once, On Sun11/09/23 at 030, For 1 occurrence And sodium chloride 0.9 % flush 10 mLJump to med 10 mL, intravenous, 2 times daily, First dose on Sun11/09/23 at 0900 And sodium chloride 0.9 % flush 10 mLJump to med 10 mL, intravenous, As needed, line care, Starting on Sun11/09/23 at 0301 Group 2: ondansetron ODT (ZOFRAN-ODT) disintegrating tablet 4 mgJump to med 4 mg, oral, Every 8 hours PRN, vomiting, nausea, Starting on Sun11/09/23 at 0301, -Give IV if patient is unable to take orally. -If inadequate response within 30 minutes, proceed to next-line agent or contact provider if no further options ordered. For ODT tablets: -Do not remove from blister pack until just before administering. -Patient should allow tablet to dissolve on tongue. Or ondansetron (PF) (ZOFRAN) injection 4 mgJump to med 4 mg, intravenous, Every 8 hours PRN, vomiting, nausea, Starting on Sun11/09/23 at 0301, -ONLY give IV if patient is unable to take orally. -If inadequate response within 30 minutes, proceed to next-line agent or contact provider if no further options ordered. Group 3: prochlorperazine (COMPAZINE) tablet 10 mgJump to med 10 mg, oral, Every 6 hours PRN, nausea, vomiting, Starting on Sun11/09/23 at 0301, 2nd Line Option: -Give IV or IM if patient is unable to take orally. -If inadequate response within 30 minutes, proceed to next-line agent or contact provider if no further options ordered. Or prochlorperazine (COMPAZINE) injection 10 mgJump to med 10 mg, intravenous, Every 6 hours PRN, nausea, vomiting, Starting on Sun11/09/23 at 0301, 2nd Line Option: -ONLY give IV if patient is unable to take orally. -Give IM if patient does not have IV Access -If inadequate response within 30 minutes, proceed to next-line agent or contact provider if no further options ordered. Or prochlorperazine (COMPAZINE) suppository 25 mgJump to med 25 mg, rectal, Every 12 hours PRN, nausea, vomiting, Starting on Sun11/09/23 at 0301, 2nd Line Option: -ONLY give AR if patient is unable to take orally and cannot receive IV/IM. -If inadequate response within 30 minutes, proceed to next-line agent or contact provider if no further options ordered. Goals (unrecognized section and content) Goals may be documented in a n alternate sectionGoals may be documented in an alternate sectionGoals may be documented in an alternate section Source Comments (unrecognize d section and content) In the event this informatio n is protected by the Federal Confidentiality of Alcohol and Drug Abuse Patient Records regulations: The Federal rules restrict any use of the information to criminally investigate or prosecute any alcohol or drug abuse patient.[facility] FOR RECORDS PERTAINING TO PATIENTS WHO ARE OR HAVE BEEN ENROLLED IN A CHEMICAL DEPENDENCY/SUBSTANCEABUSE PROGRAM, SOME INFORMATION MAY BE OMITTED. This clinical summary was aggregated from multiple sources. Caution should be exercised in using it in the provision of clinical care. This summary normalizes information from multiple sources, and as a consequence, information in this document may materially change the coding, format and clinical context of patient data. In addition, data may be omitted in some cases. CLINICAL DECISIONS SHOULD BE BASED ON THE PRIMARY CLINICAL RECORDS. [facility], [facility]. provides no warranty or guarantee of the accuracy or completeness of information in this document.
--- OUTSIDE RECORDS SUMMARY | 2024-11-27 06:43 | XMS RPT_ITS | CCD ---
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 Name Role Phone No, Physician Primary Care Provider Unavailmindy TERRAZAS, PHYSICIAN Primary Care Unavailable SABRINA LEWIS Referring Unavailable SABRINA LEWIS Attending Unavailable NO, PHYSICIAN Primary Care Unavailable SABRINA LEWIS Attending Unavailable Unavailable Primary Care Provider UnavailMATT Mcnally Attending Unavailable Physician, No Pcp Primary Care Provider UnavailAlisia Naidu MD Primary Care Provider Unavailable Primary Care Provider UnavailAlisia Aguirre MD Primary Care Provider ALISIA MONTES~[phone] [facility] Primar y Care Unavailable SHEMOMAGGIE MCLAIN Consulting Unavailable BAILEY SAADRI Admitting Unavailable LYNN SAADRI Attending Unavailable SHEMORAYNE MAGGIE Consulting Unavailable SHEMORY, MAGGIE Consulting Unavailable MATTI, MILAN Consulting Unavailable MATTI, MILAN Consulting Unavailable MATTI, MILAN Consulting Unavailable COMFORT, PRAKASH Consulting Unavailable COMFORT, PRAKASH Consulting Unavailable COMFORT, PRAKASH Consulting Unavailable [facility] Consulting Unavailable ALISIA MONTES~[phone] ERI Primar y Care Unavailable NALLELY BENAVIDEZ Attending Unavailable PHYSICIAN, NO PCP Primary Care Unavailable MORGAN GROVER Attending Unavailable PRASHANTH MARTINEZ Admitting Unavailable ALISIA MONTES~[phone] ERI Primar y Care Unavailable KEN DONATO Attending Unavailable GORSLINE, PORFIRIO Consulting Unavailable GORSLINE, PORFIRIO Consulting Unavailable GORSLINE, PORFIRIO Consulting Unavailable ISAIAH, AMA Consulting Unavailable ISAIAH, AMA Consulting Unavailable ISAIAH, AMA Consulting Unavailable KELLY, KEN Consulting Unavailable KELLY, KEN Consulting Unavailable KEN DONATO Consulting Unavailable Timo NI, Dr. Rey Hillman Primary Care Physician Timo NI, Dr. Rye Hillman Nurse Practitioner Storm NI, Dr. Tex Altamirano Attending Physician Timo NI, Dr. Rey Hillman Attending Physician Carlos MURPHY, Dr. Sena Attending Physician Ken Dill Referring Provider [phone] Storm NI, Dr. Tex Altamirano Referring Provider [...] daily azelastine 0.1% nasal spray Use 1 [place] in each nostril two times a day. [...] NASE) 50 mcg/actuation nasal spray Use 1 [place] in the nose once daily. Active Fluticasone [...] Active Start: 01-03-2023 take 1 tablet by [facility] every other day End: 01-07-2023 furosemide (LASIX) [...] 1 capsule by inhalation once daily Tiotropium [place] (Spiriva With Handihaler) 18 mcg capsule, w/inhalation device (1 source) Start: 01-03-2023 take 1 capsule by inhalation once daily Tiotropium [place] (Spiriva With Handihaler) 18 mcg capsule, w/inhalation [...] 2023 12:00am take 2 puff(s) by mo [facility] every six hours for wheezing [...] Vitamin D Start: 01-08-2023 End: 01-09-2023 take 05663 [IU] by mouth every week 50,000 Units, oral, Weekly, First dose on Sun01/08/23 at 1100 Start: 01-03-2023 take 1 capsule by [facility] every week Start: 04-08-2020 take 1 capsule by [facility] once daily Cholecalciferol, Vitamin D3, 25 mcg (1,000 unit) cap Take 1,000 Units by mouth once daily. 04/08/2020 Active take 1 tablet by [facility] once daily cholecalciferol (VITAMIN D-3) 25 mcg [...] 1045 docusate sodium 50 mg / sennosides, penitentiary 8.6 mg oral tablet (1 source) Start: [...] mL IVPB - MBP polyethylene glycol 3350 31261 mg powder for oral solution (1 source) [...] disease (15 sources) Atherosclerotic heart disease of [place] coronary artery without angina pectoris; Translations: [Ischemic [...] Facility Cardiology Visit Reporton Cardiology Visit Report [facility] [address] [place] [address]. [address] [place] [address] OFFICE VISIT Date of Service: 11/26/24 MR#: [id number] Acct: [id number] Name: YONI VILLALPANDO Rep #: [id number] : 1945 Provider: Dr. Baljinder Leach MD Age/Sex: 79/M Location: [facility] [place] Status: Signed HPI HPI History of Present Illness Details: The patient is a 79-year-old male with a history of OK, CAD, and COPD, presenting for preoperative evaluation prior to foot surgery scheduled for next Sunday. 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 Normal [facility] Foot min 3 Viewson 5 Foot min 3 Views [facility] Imaging Services [address] [place] [address] Foot min 3 Views MR#: [id number] Acct: [id number] Name: YONI VILLALPANDO Rep #: [id number] : 1945 M 79 From: Brian espinoza MD PCP: Dr. Rey Greenwood MD Status: REG RCR Study: Foot min 3 Views Date of Exam: 11/14/24 Exam# [id number] Ordering Dr: Nathen Gonzalez DPM PROCEDURE: FOOT [...] No acute abnormality is seen. Reading Location: [id number] CC: KATHERINE Gonzalez; Dr. Rey Greenwood MD Medical Records Field Technician: Signed Normal [facility] Arterial Doppler ultrasound reportOrdered By: Tex Inman on 10-30-2024 Study report [facility] [address] [place] [address] US Art Duplex Unilat Lower Ext 10/29/24 0938 MR#: [id number] Acct: [id number] Name: YONI VILLALPANDO Rep #:[id number] : 1945 79 From: Tex Inman MD Attending Dr: Dr. Nathen Gonzalez DPM Status: REG RCR Ordering Dr: Tex Inman MD Date: 10/29/24 Location: [facility] Sex: M C Admitted: Reason For Study [...] Date Dictated: 10/29/24937 Date Transcribed: 10/30/24 1235 Medical Records Field Technician: Signed [facility] Work Phone: US Art Duplex Unilat Lower E xton 10-29-2024 US Art Duplex Unilat Lower Ext [facility] [address] [place] [address] US Art Duplex Unilat Lower Ext 10/29/24937 MR#: [id number] Acct: [id number] Name: YONI VILLALPANDO Rep #: [id number] : 1945 79 From: Tex Inman MD [...] Date Dictated: 10/29/2438 Date Transcribed: 10/30/24 123 Medical Records Field Technician: Signed Normal [facility] Wound Ctr History AND Physic jina 10-24-2024 Wound Ctr History & Physical [facility] [address] [place] [address] H P Exam - Wound Care 10/24/24 1529 MR#: [id number] Acct: [id number] Name: YONI VILLALPANDO Rep #: [id number] : 1945 79 From: Tex Inman MD PCP: Dr. Rey Greenwood MD Status:[facility] Location: [facility] History of Present Illness Date of Service: [...] topically to his left great toe ulceration. [facility] Medical History Diabetic foot ulcer associated with [...] sentences Extr (more content not included)... Normal [facility] Absolute lymphocyte countOrd ered By: Rey Greenwood on 10-23-2024 Lymphocytes Auto (Unsp spec) [#/Vol] 1.82 10*3/uL 0.83-4.51 [facility] Absolute neutrophil countOrd ered By: Rey Greenwood on 10-23-2024 Neutrophils (Bld) [#/Vol] 5.7 10*3/uL 2.0-7.7 [facility] Anion gap in Serum or Plasma Ordered By: Rey Greenwood on 10-23-2024 Anion gap [Moles/Vol] 11 mmol/L 5- [facility] Automated lymphocyte count a s percentage of total leukocytesOrdered By: Rey Timo on 10-23-2024 Lymphocytes/100 WBC Auto (Unsp spec) 21.7 % - [facility] BUN/creatinine ratioOrdered By: [facility] on 10-23-2024 Urea nitrogen/Creatinine [Mass ratio] 16.6 mg/mg - [facility] Basophil percentageOrdered B y: Rey Greenwood on 10-23-2024 Basophils/100 WBC (Bld) 0.1 % 0- [facility] Bilirubin, totalOrdered By: Rey Greenwood on 10-23-2024 Bilirubin [Mass/Vol] 0.64 mg/dL 0.00-1.30 [facility] CBC W/Diff, Automatedon 10-13 Absolute Lymph 1.82 X10 3/uL Normal 0.83-4.51 [facility] Comment on above: Performed By: #### L 506.1001, L3890.6301, L100.0100, L501.1400, L500.4100, L500.4050, L501.9520 #### [facility] [address] [place], [address] Absolute Neut 5.7 X10 3/uL Normal 2.0-7.7 [facility] Comment on above: Performed By: #### L 506.1001, L3890.6301, L100.0100, L501.1400, L500.4100, L500.4050, L501.9520 #### [facility] [address] [place], [address] Basophils/100 WBC (Bld) 0.1 % Normal 0-1 [facility] Comment on above: Performed By: #### L 506.1001, L3890.6301, L100.0100, L501.1400, L500.4100, L500.4050, L501.9520 #### [facility] [address] [place], [address] Eosinophils/100 WBC (Bld) 1.3 % Normal 0-5 [facility] Comment on above: Performed By: #### L 506.1001, L3890.6301, L100.0100, L501.1400, L500.4100, L500.4050, L501.9520 #### [facility] [address] [place], [address] Erythrocyte distribution width (RBC) [Ratio] 14.1 % Normal 11.6-14.6 [facility] Comment on above: Performed By: #### L 506.1001, L3890.6301, L100.0100, L501.1400, L500.4100, L500.4050, L501.9520 #### [facility] [address] [place], [address] Hematocrit (Bld) [Volume fraction] 40.6 % Normal 40-54 [facility] Comment on above: Performed By: #### L 506.1001, L3890.6301, L100.0100, L501.1400, L500.4100, L500.4050, L501.9520 #### [facility] [address] [place], [address] Hemoglobin (Bld) [Mass/Vol] 13.4 g/dL Normal 13.0-16.5 [facility] Comment on above: Performed By: #### L 506.1001, L3890.6301, L100.0100, L501.1400, L500.4100, L500.4050, L501.9520 #### [facility] [address] [place], [address] IG% 0.600 Normal 0.0-0.9 [facility] Comment on above: Result Comment: IG% - Immature Granulocytes (promyelocytes, myelocytes and metamyelocytes) > 1% indicates that a LEFT SHIFT is Present. Performed By: #### L 506.1001, L3890.6301, L100.0100, L501.1400, L500.4100, L500.4050, L501.9520 #### [facility] [address] [place], [address] Lymphocytes/100 WBC (Bld) 21.7 % Normal 19-41 [facility] Comment on above: Performed By: #### L 506.1001, L3890.6301, L100.0100, L501.1400, L500.4100, L500.4050, L501.9520 #### [facility] [address] [place], [address] MCH (RBC) [Entitic mass] 31.1 pg Normal 27.0-32.0 [facility] Comment on above: Performed By: #### L 506.1001, L3890.6301, L100.0100, L501.1400, L500.4100, L500.4050, L501.9520 #### [facility] [address] [place], [address] MCHC (RBC) [Mass/Vol] 33.0 g/dL Normal 32-36 [facility] Comment on above: Performed By: #### L 506.1001, L3890.6301, L100.0100, L501.1400, L500.4100, L500.4050, L501.9520 #### [facility] [address] [place], [address] MCV (RBC) [Entitic vol] 94.2 fL High 80-94 [facility] Comment on above: Performed By: #### L 506.1001, L3890.6301, L100.0100, L501.1400, L500.4100, L500.4050, L501.9520 #### [facility] [address] [place], [address] Monocytes/100 WBC (Bld) 7.9 % Normal 0-10 [facility] Comment on above: Performed By: #### L 506.1001, L3890.6301, L100.0100, L501.1400, L500.4100, L500.4050, L501.9520 #### [facility] [address] [place], [address] Neutrophils/100 WBC (Bld) 68.4 % Normal 47-70 [facility] Comment on above: Performed By: #### L 506.1001, L3890.6301, L100.0100, L501.1400, L500.4100, L500.4050, L501.9520 #### [facility] [address] [place], [address] Nucleated RBC (Bld) [#/Vol] 0 10*3/uL Normal 0-5 [facility] Comment on above: Performed By: #### L 506.1001, L3890.6301, L100.0100, L501.1400, L500.4100, L500.4050, L501.9520 #### [facility] [address] [place], [address] Platelet mean volume (Bld) [Entitic vol] 11.2 fL Normal 6.2-12.0 [facility] Comment on above: Performed By: #### L 506.1001, L3890.6301, L100.0100, L501.1400, L500.4100, L500.4050, L501.9520 #### [facility] [address] [place], [address] Platelets (Bld) [#/Vol] 154 10*3/uL Normal 150-450 [facility] Comment on above: Performed By: #### L 506.1001, L3890.6301, L100.0100, L501.1400, L500.4100, L500.4050, L501.9520 #### [facility] [address] [place], [address] RBC (Bld) [#/Vol] 4.31 10*6/uL Low 4.6-6.2 [facility] Comment on above: Performed By: #### L 506.1001, L3890.6301, L100.0100, L501.1400, L500.4100, L500.4050, L501.9520 #### [facility] [address] [place], [address] RDW SD 48.2 fl High 35.1-43.9 [facility] Comment on above: Performed By: #### L 506.1001, L3890.6301, L100.0100, L501.1400, L500.4100, L500.4050, L501.9520 #### [facility] [address] [place], [address] WBC (Bld) [#/Vol] 8.4 10*3/uL Normal 4.4-11.0 [facility] Comment on above: Performed By: #### L 506.1001, L3890.6301, L100.0100, L501.1400, L500.4100, L500.4050, L501.9520 #### [facility] [address] [place], [address] Calculated very low density lipoprotein (VLDL) cholesterol measurementOrdered By: Rey Greenwood on 10-23-2024 Calculated very low density lipoprotein (VLDL) cholesterol measurement 18 mg/dL 5-40 [facility] Carbon dioxide, total [Moles /volume] in Central venous bloodOrdered By: Rey Greenwood on 10-23-2024 CO2 [Moles/Vol] 25.9 mmol/L 21.0-32.0 [facility] Chloride assayOrdered By: Rolando Greenwood on 10-23-2024 Chloride [Moles/Vol] 106 mmol/L 98-108 [facility] Comprehensive Metabolic Prof ilon 10-23-2024 Albumin [Mass/Vol] 4.0 g/dL Normal 3.4-4.8 [facility] Comment on above: Performed By: #### L 506.1001, L3890.6301, L100.0100, L501.1400, L500.4100, L500.4050, L501.9520 #### [facility] [address] [place], [address] Albumin/Globulin [Mass ratio] 1.3 {ratio} Normal 0.9-2.4 [facility] Comment on above: Performed By: #### L 506.1001, L3890.6301, L100.0100, L501.1400, L500.4100, L500.4050, L501.9520 #### [facility] [address] [place], [address] ALK PHOS 122 U/L Normal 40-129 [facility] Comment on above: Performed By: #### L 506.1001, L3890.6301, L100.0100, L501.1400, L500.4100, L500.4050, L501.9520 #### [facility] [address] [place], [address] ALT [Catalytic activity/Vol] 18 U/L Normal <=46 [facility] Comment on above: Performed By: #### L 506.1001, L3890.6301, L100.0100, L501.1400, L500.4100, L500.4050, L501.9520 #### [facility] [address] [place], [address] AST [Catalytic activity/Vol] 24 U/L Normal <=37 [facility] Comment on above: Performed By: #### L 506.1001, L3890.6301, L100.0100, L501.1400, L500.4100, L500.4050, L501.9520 #### [facility] [address] [place], [address] Bilirubin [Mass/Vol] 0.64 mg/dL Normal 0.00-1.30 [facility] Comment on above: Performed By: #### L 506.1001, L3890.6301, L100.0100, L501.1400, L500.4100, L500.4050, L501.9520 #### [facility] [address] [place], [address] BUN/CRE 16.6 RATIO Normal 10-20 [facility] Comment on above: Performed By: #### L 506.1001, L3890.6301, L100.0100, L501.1400, L500.4100, L500.4050, L501.9520 #### [facility] [address] [place], [address] Calcium [Mass/Vol] 9.1 mg/dL Normal 7.6-11.0 [facility] Comment on above: Performed By: #### L 506.1001, L3890.6301, L100.0100, L501.1400, L500.4100, L500.4050, L501.9520 #### [facility] [address] [place], [address] Chloride [Moles/Vol] 106 mmol/L Normal 98-108 [facility] Comment on above: Performed By: #### L 506.1001, L3890.6301, L100.0100, L501.1400, L500.4100, L500.4050, L501.9520 #### [facility] [address] [place], [address] CO2 [Moles/Vol] 25.9 mmol/L Normal 21.0-32.0 [facility] Comment on above: Performed By: #### L 506.1001, L3890.6301, L100.0100, L501.1400, L500.4100, L500.4050, L501.9520 #### [facility] [address] [place], [address] Creatinine [Mass/Vol] 0.99 mg/dL Normal 0.70-1.20 [facility] Comment on above: Performed By: #### L 506.1001, L3890.6301, L100.0100, L501.1400, L500.4100, L500.4050, L501.9520 #### [facility] [address] [place], [address] GAP 11 Normal 5-15 [facility] Comment on above: Performed By: #### L 506.1001, L3890.6301, L100.0100, L501.1400, L500.4100, L500.4050, L501.9520 #### [facility] [address] [place], [place], [id number] (371) GFR/1.73 sq M.predicted among non-blacks MDRD (S/P/Bld) [Vol rate/Area] 79 mL/min/{1.73_m2} Normal >60 [facility] Comment on above: Result Comment: mL/m in/1.73m2 CKD-EPI Creatinine Equation (2020) Performed By: #### L 506.1001, L3890.6301, L100.0100, L501.1400, L500.4100, L500.4050, L501.9520 #### [facility] [address] [place], [address] Globulin (S) [Mass/Vol] 3.0 g/dL Normal 2.2-4.2 [facility] Comment on above: Performed By: #### L 506.1001, L3890.6301, L100.0100, L501.1400, L500.4100, L500.4050, L501.9520 #### [facility] [address] [place], [address] Glucose [Mass/Vol] 95 mg/dL Normal 70-99 [facility] Comment on above: Performed By: #### L 506.1001, L3890.6301, L100.0100, L501.1400, L500.4100, L500.4050, L501.9520 #### [facility] [address] [place], [address] Potassium [Moles/Vol] 3.9 mmol/L Normal 3.3-5.1 [facility] Comment on above: Performed By: #### L 506.1001, L3890.6301, L100.0100, L501.1400, L500.4100, L500.4050, L501.9520 #### [facility] [address] [place], [address] Sodium [Moles/Vol] 144 mmol/L Normal 133-145 [facility] Comment on above: Performed By: #### L 506.1001, L3890.6301, L100.0100, L501.1400, L500.4100, L500.4050, L501.9520 #### [facility] [address] [place], [address] T PROT 7.0 g/dL Normal 5.9-8.4 [facility] Comment on above: Performed By: #### L 506.1001, L3890.6301, L100.0100, L501.1400, L500.4100, L500.4050, L501.9520 #### [facility] [address] [place], [address] Urea nitrogen [Mass/Vol] 16 mg/dL Normal 4-19 [facility] Comment on above: Performed By: #### L 506.1001, L3890.6301, L100.0100, L501.1400, L500.4100, L500.4050, L501.9520 #### [facility] [address] [place], [address] Eosinophil percentageOrdered By: Rey Keenanok on 10-23-2024 Eosinophils/100 WBC (Bld) 1.3 % 0-5 [facility] Erythrocyte distribution wid th ratioOrdered By: Rey Timo on 10-23-2024 Erythrocyte distribution width (RBC) [Ratio] 14.1 % 11.6-14.6 [facility] Erythrocyte distribution wid th standard deviationOrdered By: Rey Timo on 10-23-2024 Erythrocyte distribution width (RBC) [Ratio] 48.2 fl High 35.1-43.9 [facility] Glomerular filtration rate ( GFR) estimation/1.73 sq m using serum, plasma, or whole bOrdered By: Rey Greenwood on 10-23-2024 GFR/1.73 sq M.predicted among non-blacks MDRD (S/P/Bld) [Vol rate/Area] 79 mL/min/{1.73_m2} >60 [facility] Comment on above: mL/min/1.73m2 CKD-EP I Creatinine Equation (2020) Hematocrit Auto (Bld) [Volum e fraction]Ordered By: Rey Greenwood on 10-23-2024 Hematocrit (Bld) [Volume fraction] 40.6 % 40-54 [facility] Hemoglobin measurementOrdere d By: Rey Greenwood on 10-23-2024 Hemoglobin (Bld) [Mass/Vol] 13.4 g/dL 13.0-16.5 [facility] Hepatitis C Antibodyon 10-23 Hepatitis C Ab Non-Reactive Normal Nonreactive [facility] Comment on above: Result Comment: Reac tive: Presumptive evidence of antibodies to HCV. Follow CDC recommendations for supplemental testing. Non-Reactive: Antibodies to HCV were not detected; does not exclude the possibility of exposure to HCV Reactive Results are presumptive evidence of antibodies to HCV. Follow CDC recommendations for supplemental testing. Order confirmation testing: HCV Quant by PCR testing - HCVPCR #[id number] Non Reactive: < 0.8 Equivocal: >/= 0.8 to < 1.0 Reactive: >/= 1.0 The [facility] requires that a reactive/equivocal HCV antibody result be sent out for confirmation. HCV Quant by PCR testing. Performed By: #### L 506.1001, L3890.6301, L100.0100, L501.1400, L500.4100, L500.4050, L501.9520 ####[facility] [address] [place], [place], [id number](573) Immature granulocytes/100 WB C Auto (Bld)Ordered By: Rey Greenwood on 10-23-2024 Immature granulocytes/100 WBC (Bld) 0.600 % 0.0-0.9 [facility] Comment on above: IG% - Immature Granu locytes (promyelocytes, myelocytes and metamyelocytes) > 1% indicates that a LEFT SHIFT is Present. LDL calc ser/plasOrdered By: Rey Greenwood on 10-23-2024 Cholesterol in LDL [Mass/Vol] 22 mg/dL [facility] Comment on above: Dpmehyjbvt=665-909 m g/dL & Higher Qttc=875 mg/dL or greaterFriedwald Equation for LDL-C Laboratory - Chemistry and C hemistry - challengeOrdered By: Rey Greenwood on 10-23-2024 AST [Catalytic activity/Vol] 24 U/L <38 [facility] Lipid Profileon 10-23-2024 CHOL:HDL 1.95 Normal [facility] Comment on above: Performed By: #### L 506.1001, L3890.6301, L100.0100, L501.1400, L500.4100, L500.4050, L501.9520 #### [facility] [address] [place], [place], [id number] Cholesterol [Mass/Vol] 82 mg/dL Normal <=200 [facility] Comment on above: Result Comment: Chol esterol level, Desirable <200 mg/dL Borderline high cholesterol 200-239 mg/dL High cholesterol >=240 mg/dL Recommendations of the NCEP Adult Treatment Panel for the following risk-cutoff thresholds for the [place] population. Performed By: #### L 506.1001, L3890.6301, L100.0100, L501.1400, L500.4100, L500.4050, L501.9520 #### [facility] [address] [place], [address] Cholesterol in HDL [Mass/Vol] 42 mg/dL Normal [facility] Comment on above: Result Comment: Jory onal Cholesterol Education Program (NCEP) guidelines: <40 mg/dL: Low HDL-cholesterol (major risk factor for CHD) >= 60 mg/dL: High HDL-cholesterol (negative risk factor for CHD) HDL-cholesterol is affected by a number of factors, e.g. smoking, exercise, hormones, sex and age. Performed By: #### L 506.1001, L3890.6301, L100.0100, L501.1400, L500.4100, L500.4050, L501.9520 #### [facility] [address] [place], [address] Cholesterol in LDL [Mass/Vol] 22 mg/dL Normal [facility] Comment on above: Result Comment: Bord pqcbct=978-098 mg/dL Higher Pzul=828 mg/dL or greater Friedwald Equation for LDL-C Performed By: #### L 506.1001, L3890.6301, L100.0100, L501.1400, L500.4100, L500.4050, L501.9520 #### [facility] [address] [place], [address] Cholesterol in VLDL [Mass/Vol] 18 mg/dL Normal 5-40 [facility] Comment on above: Performed By: #### L 506.1001, L3890.6301, L100.0100, L501.1400, L500.4100, L500.4050, L501.9520 #### [facility] [address] [place], [place], [id number] Triglyceride [Mass/Vol] 90 mg/dL Normal [facility] Comment on above: Result Comment: The drugs N-Acetylcysteine and Metamizole may falsely depress this assay. Normal range: <150 mg/dL Borderline High: 150-199 mg/dL High: 200-499 mg/dL Very High: >500 mg/dL Performed By: #### L 506.1001, L3890.6301, L100.0100, L501.1400, L500.4100, L500.4050, L501.9520 #### [facility] [address] [facility] [place], [address] MCV (mean corpuscular volume ) determinationOrdered By: Rey Greenwood on 10-23-2024 MCV (RBC) [Entitic vol] 94.2 fL High 80-94 [facility] Mean corpuscular hemoglobin (MCH) determinationOrdered By: Rey Greenwood on 10-23-2024 MCH (RBC) [Entitic mass] 31.1 pg 27.0-32.0 [facility] Mean corpuscular hemoglobin concentration (MCHC) determinationOrdered By: Rey Greenwood on 10-23-2024 MCHC (RBC) [Mass/Vol] 33.0 g/dL 32-36 [facility] Mean platelet volume determi nationOrdered By: Rey Greenwood on 10-23-2024 Platelet mean volume (Bld) [Entitic vol] 11.2 fL 6.2-12.0 [facility] Monocyte percentageOrdered B y: Rey Greenwood on 10-23-2024 Monocytes/100 WBC (Bld) 7.9 % 0-10 [facility] Neutrophil percentageOrdered By: Rey Greenwood on 10-23-2024 Neutrophils/100 WBC (Bld) 68.4 % 47-70 [facility] Nucleated red blood cell per centageOrdered By: Rey Greenwood on 10-23-2024 Nucleated RBC/100 WBC (Bld) [Ratio] 0 % 0-5 [facility] Platelet countOrdered By: Rolando Greenwood on 10-23-2024 Platelets (Bld) [#/Vol] 154 10*3/uL 150-450 [facility] Potassium measurement (mass/ volume)Ordered By: Rey Greenwood on 10-23-2024 Potassium (Unsp spec) [Mass/Vol] 3.9 mmol/L 3.3-5.1 [facility] RBC Auto (Bld) [#/Vol]Ordere d By: Rey Greenwood on 10-23-2024 RBC (Bld) [#/Vol] 4.31 10*6/uL Low 4.6-6.2 [facility] Screening total cholesterol/ high density lipoprotein (HDL) cholesterol ratioOrdered By: Rey Greenwood on 10-23-2024 Cholesterol.total/Chol esterol in HDL [Mass ratio] 1.95 {ratio} [facility] Serum creatinine measurement (mass/volume)Ordered By: Rey Greenwood on 10-23-2024 Creatinine [Mass/Vol] 0.99 mg/dL 0.70-1.20 [facility] Serum globulin measurementOr dered By: Rey Greenwood 10-23-2024 Globulin (S) [Mass/Vol] 3.0 g/dL 2.2-4.2 [facility] Serum glucose measurement (m ass/volume)Ordered By: Rey Greenwood 10-23-2024 Glucose [Mass/Vol] 95 mg/dL 70-99 [facility] Serum or plasma alanine hawk otransferase (ALT) measurementOrdered By: Rey Greenwood 10-23-2024 ALT [Catalytic activity/Vol] 18 U/L <47 [facility] Serum or plasma albumin james urement (mass/volume)Ordered By: Rey Greenwood 10-23-2024 Albumin [Mass/Vol] 4.0 g/dL 3.4-4.8 [facility] Serum or plasma albumin/glob ulin mass ratioOrdered By: Rey Greenwood 10-23-2024 Albumin/Globulin [Mass ratio] 1.3 {ratio} 0.9-2.4 [facility] Serum or plasma alkaline susie sphatase measurementOrdered By: Rey Greenwood 10-23-2024 ALP [Catalytic activity/Vol] 122 U/L 40-129 [facility] Serum or plasma calcium james urement (mass/volume)Ordered By: Rey Greenwood on 10-23-2024 Calcium [Mass/Vol] 9.1 mg/dL 7.6-11.0 [facility] Serum or plasma cholesterol in HDL measurement (mass/volume)Ordered By: Rey Greenwood on 10-23-2024 Cholesterol in HDL [Mass/Vol] 42 mg/dL >40 [facility] Comment on above: National Cholesterol Education Program (NCEP) guidelines:<40 mg/dL: Low HDL-cholesterol (major risk factor for CHD)>= 60 mg/dL: High HDL-cholesterol (negative risk factor for CHD)HDL-cholesterol is affected by a number of factors, e.g. smoking, exercise, hormones, sex and age. Serum or plasma cholesterol measurement (mass/volume)Ordered By: Rey Greenwood on 10-23-2024 Cholesterol [Mass/Vol] 82 mg/dL <201 [facility] Comment on above: Cholesterol level, D esirable <200 mg/dLBorderline high cholesterol 200-239 mg/dLHigh cholesterol >=240 mg/dLRecommendations of the NCEP Adult Treatment Panel for the following risk-cutoff thresholds for the [place] population. Serum or plasma urea nitroge n measurement (mass/volume)Ordered By: Rey Greenwood on 10-23-2024 Urea nitrogen [Mass/Vol] 16 mg/dL 4-19 [facility] Serum or plasma uric acid me asurement (mass/volume)Ordered By: Rey Greenwood on 10-23-2024 Urate [Mass/Vol] 8.2 mg/dL High 3.5-7.2 [facility] Comment on above: The drugs N-Acetylcy steine and Metamizole may falsely depress this assay. Sodium levelOrdered By: Rey Greenwood on 10-23-2024 Sodium [Moles/Vol] 144 mmol/L 133-145 [facility] TSH DL <= 0.005 mIU/L QnOrde red By: Rey Greenwood on 10-23-2024 TSH Qn 0.866 uIU/mL 0.300-4.200 [facility] Thyroid Stim Hormone (TSH)on 10-23-2024 TSH 0.866 uIU/mL Normal 0.300-4.200 [facility] Comment on above: Performed By: #### L 506.1001, L3890.6301, L100.0100, L501.1400, L500.4100, L500.4050, L501.9520 #### [facility] [address] [place], [place], [id number] Total proteinOrdered By: Rey Greenwood on 10-23-2024 Protein [Mass/Vol] 7.0 g/dL 5.9-8.4 [facility] Triglycerides measurementOrd ered By: Rey Greenwood on 10-23-2024 Triglyceride [Mass/Vol] 90 mg/dL <199 [facility] Comment on above: The drugs N-Acetylcy steine and Metamizole may falsely depress this assay. Normal range: <150 mg/dLBorderline High: 150-199 mg/dLHigh: 200-499 mg/dLVery High: >500 mg/dL Uric Acidon 10-23-2024 URIC 8.2 mg/dL High 3.5-7.2 [facility] Comment on above: Result Comment: The drugs N-Acetylcysteine and Metamizole may falsely depress this assay. Performed By: #### L 506.1001, L3890.6301, L100.0100, L501.1400, L500.4100, L500.4050, L501.9520 #### [facility] [address] [place], [place], [id number] Vitamin D,25 Hydroxyon 10-23 Vitamin D 25-OH 31.7 ng/mL Normal 30-100 [facility] Comment on above: Result Comment: Janelle min D Status Deficiency: <20 ng/mL (50nmol/L) Insufficiency: 20-30 ng/mL (50-75 nmol/L) Sufficiency: 30-100 ng/mL (75-250 nmol/L) Toxicity: >100 ng/mL (>250 nmol/L) Performed By: #### L 506.1001, L3890.6301, L100.0100, L501.1400, L500.4100, L500.4050, L501.9520 ####[facility] [address] [place], [address] White blood cell (WBC) count Ordered By: Rey Greenwood on 10-23-2024 WBC (Bld) [#/Vol] 8.4 10*3/uL 4.4-11.0 [facility] Foot min 3 Viewson Foot min 3 Views [facility] Imaging Services [address] [place] [address] Foot min 3 Views MR#: [id number] Acct: [id number] Name: YONI VILLALPANDO Rep #: [id number] : 1945 M 79 From: Josh Chun PCP: Dr. Rey Greenwood MD Status: REG RCR Study: Foot min 3 Views Date of Exam: 10/20/24 Exam# [id number] Ordering Dr: Nathen Gonzalez DPM PROCEDURE: FOOT [...] degenerative changes seen of the metatarsophalangeal joint [id number] degenerative changes seen of the 1st metatarsal head. Mild degenerative changes are seen throughout the midfoot and the remaining toes. No acute fracture or dislocation is seen. No osseous destructive change is seen to suggest the presence of osteomyelitis. Follow up imaging if and as clinically appropriate. Reading Location: [place] [address] CC: KATHERINE Gonzalez; Dr. 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 Normal [facility] ECG 12 lead (Midmark)on Sinus Bradycardia -Left axis -anterior fascicular block. 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 ABNORMAL [facility] ECG 12-LEAD (MIDMARK)on ECG 12-LEAD (MIDMARK) Sinus Bradycardia -Left axis -anterior fascicular block. 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 ABNORMAL Normal [facility] Bacteria identified Cx Nom ( Tiss)Ordered By: Josh Whatley on 11-13-2023 Interpretation and review of laboratory results Abnormal [facility] Microscopic observation Gram stain Nom (Unsp spec) Rare Polymorphonuclear leukocytes [facility] Comment on above: This is an appended report. These results have been appended to a previously preliminary verified report. Microscopic observation Gram stain Nom (Unsp spec) No Epithelial cells [facility] Comment on above: This is an appended report. These results have been appended to a previously preliminary verified report. Microscopic observation Gram stain Nom (Unsp spec) No organisms seen [facility] Comment on above: This is an appended report. These results have been appended to a previously preliminary verified report. [facility] Basic metabolic 2000 panelon 11-13-2023 Anion gap [Moles/Vol] 7 mmol/L 6 - 18 [facility] [employer] Calcium [Mass/Vol] 8.5 mg/dL Low 8.9 - 10. 3 mg/dL [facility] Chloride [Moles/Vol] 107 mmol/L 98 - 10 7 mmol/L [facility] CO2 [Moles/Vol] 24 mmol/L 22 - 32 mmol/L [facility] Creatinine [Mass/Vol] 1.11 mg/dL 0.60 - 1.30 mg/dL [facility] GFR/1.73 sq M.predicted among non-blacks MDRD (S/P/Bld) [Vol rate/Area] 69 mL/min/{1.73_m2} - PINF [facility] Comment on above: Calculation based on the Chronic Kidney Disease Epidemiology Collaboration (CKD-EPI) equation refit without adjustment for race. Glucose [Mass/Vol] 161 mg/dL High 70 - 99 mg/dL [facility] Interpretation and review of laboratory results Abnormal [facility] Potassium [Moles/Vol] 4.3 mmol/L 3.6 - 5.1 mmol/L [facility] Sodium [Moles/Vol] 138 mmol/L 136 - 145 mmol/L [facility] Urea nitrogen [Mass/Vol] 25 mg/dL High 8 - 20 mg/dL [facility] Urea nitrogen/Creatinine [Mass ratio] 22.5 mg/mg High 12.0 - 20.0 [facility] Anion gap [Moles/Vol] 7 mmol/L Normal 6-18 [facility] Comment on above: Performed By: #### 2 4321-2 #### [facility] [address] [place] [address] Calcium [Mass/Vol] 8.5 mg/dL Low 8.9-10.3 [facility] Comment on above: Performed By: #### 2 4321-2 #### [facility] [address] [place] [address] Chloride [Moles/Vol] 107 mmol/L Normal 98-107 [facility] Comment on above: Performed By: #### 2 4321-2 #### [facility] [address] [place] [address] CO2 [Moles/Vol] 24 mmol/L Normal 22-32 [facility] Comment on above: Performed By: #### 2 4321-2 #### [facility] [place] [address] Creatinine [Mass/Vol] 1.11 mg/dL Normal 0.60-1.30 [facility] Comment on above: Performed By: #### 2 4321-2 #### [facility] [place] [address] GFR/1.73 sq M.predicted among non-blacks MDRD (S/P/Bld) [Vol rate/Area] 69 mL/min/{1.73_m2} Normal >=60 [facility] Comment on above: Result Comment: Calc ulation based on the?Chronic Kidney Disease Epidemiology Collaboration (CKD-EPI) equation refit?without adjustment for race. Performed By: #### 2 4321-2 #### [facility] [address] [place] [address] [place] [address] Glucose [Mass/Vol] 161 mg/dL High 70-99 [facility] Comment on above: Performed By: #### 2 4321-2 #### [facility] [address] [place] [address] [place] [address] Potassium [Moles/Vol] 4.3 mmol/L Normal 3.6-5.1 [facility] Comment on above: Performed By: #### 2 4321-2 #### [facility] [address] [place] [address] [place] [address] Sodium [Moles/Vol] 138 mmol/L Normal 136-145 [facility] Comment on above: Performed By: #### 2 4321-2 #### [facility] [address] [place], [place] [address] [place] [address] Urea nitrogen [Mass/Vol] 25 mg/dL High 8-20 [facility] Comment on above: Performed By: #### 2 4321-2 #### [facility] [address] [place] [address] Urea nitrogen/Creatinine [Mass ratio] 22.5 mg/mg High 12.0-20.0 [facility] Comment on above: Performed By: #### 2 4321-2 #### [facility] [address] [place] [address] Culture tissue with gram sta inOrdered By: Josh Whatley on 11-13-2023 Bacteria identified Cx Nom (Tiss) Rare Corynebacterium species Abnormal [facility] Comment on above: The organism value for this result has been updated. These results have been appended to the previously preliminary verified report. Bacteria identified Cx Nom (Tiss) Rare Enterococcus faecalis Abnormal [facility] Comment on above: Performed on MCCLB-V ITEKMS-1 See previous culture for susceptibilities. The organism value for this result has been updated. These results have been appended to the previously preliminary verified report. Result component has been updated to reportable to [facility]. Hemogram and platelets WO di fferential panel (Bld)on 11-13-2023 Erythrocyte distribution width (RBC) [Ratio] 13.9 % 11.0 - 14.8 % [facility] [employer] Hematocrit (Bld) [Volume fraction] 43.6 % 39.0 - 49.0 % [facility] Hemoglobin (Bld) [Mass/Vol] 14.1 g/dL 13.5 - 17.5 g/dL [facility] Interpretation and review of laboratory results Abnormal [facility] MCH (RBC) [Entitic mass] 30.0 pg [facility] [employer] MCHC (RBC) [Mass/Vol] 32.3 g/dL 30.8 - 35.3 g/dL [facility] MCV (RBC) [Entitic vol] 92.8 fL [facility] [employer] Platelet mean volume (Bld) [Entitic vol] 11.3 fL [facility] [employer] Platelets (Bld) [#/Vol] 143 10*3/uL [facility] RBC (Bld) [#/Vol] 4.70 10*6/uL [facility] WBC (Bld) [#/Vol] 4.3 10*3/uL [facility] Erythrocyte distribution width (RBC) [Ratio] 13.9 % Normal 11.0-14.8 [facility] Comment on above: Performed By: #### 6 36-1 #### [facility] [address] [place] [address] [facility] [address] [place] [address] [place] [address] Hematocrit (Bld) [Volume fraction] 43.6 % Normal 39.0-49.0 [facility] Comment on above: Performed By: #### 6 36-1 #### [facility] [address] [place] [address] [facility] [address] [place] [address] Hemoglobin (Bld) [Mass/Vol] 14.1 g/dL Normal 13.5-17.5 [facility] Comment on above: Performed By: #### 6 36-1 #### [facility] [address] [place] [address] [facility] [address] [place] [address] MCH 30.0 pcg Normal 27.0-34.0 [facility] Comment on above: Performed By: #### 6 36-1 #### [facility] [address] [place] [address] [facility] [address] [place] [address] [place] [address] MCHC (RBC) [Mass/Vol] 32.3 g/dL Normal 30.8-35.3 [facility] Comment on above: Performed By: #### 6 36-1 #### [facility] [address] [place] [address] [facility] [address] [place] [address] MCV (RBC) [Entitic vol] 92.8 fL Normal 80.0-97.0 [facility] Comment on above: Performed By: #### 6 36-1 #### [facility] [address] [place] [address] [facility] [place] [address] Platelet mean volume (Bld) [Entitic vol] 11.3 fL Normal 6.2-12.1 [facility] Comment on above: Performed By: #### 6 36-1 #### [facility] [address] [place] [address] [facility] [place] [address] Platelets (Bld) [#/Vol] 143 10*3/uL Normal 142-424 [facility] Comment on above: Performed By: #### 6 36-1 #### [facility] [address] [place] [address] [facility] [place] [address] RBC (Bld) [#/Vol] 4.70 10*6/uL Normal 4.30-5.70 [facility] Comment on above: Performed By: #### 6 36-1 #### [facility] [address] [place] [address] [facility] [place] [address] WBC (Bld) [#/Vol] 4.3 10*3/uL Low 4.6-10.2 [facility] Comment on above: Performed By: #### 6 36-1 #### [facility] [address] [place] [address] [facility] [place] [address] Basic metabolic 2000 panelon 11-12-2023 Anion gap [Moles/Vol] 9 mmol/L 6 - 18 [facility] Calcium [Mass/Vol] 8.1 mg/dL Low 8.9 - 10. 3 mg/dL [facility] Chloride [Moles/Vol] 103 mmol/L 98 - 10 7 mmol/L [facility] [employer] CO2 [Moles/Vol] 23 mmol/L 22 - 32 mmol/L [facility] [employer] Creatinine [Mass/Vol] 1.21 mg/dL 0.60 - 1.30 mg/dL [facility] [employer] GFR/1.73 sq M.predicted among non-blacks MDRD (S/P/Bld) [Vol rate/Area] 62 mL/min/{1.73_m2} - PINF [facility] Comment on above: Calculation based on the Chronic Kidney Disease Epidemiology Collaboration (CKD-EPI) equation refit without adjustment for race. Glucose [Mass/Vol] 85 mg/dL 70 - 99 mg/dL [facility] Interpretation and review of laboratory results Abnormal [facility] [employer] Potassium [Moles/Vol] 4.3 mmol/L 3.6 - 5.1 mmol/L [facility] [employer] Sodium [Moles/Vol] 135 mmol/L Low 136 - 145 mmol/L [facility] [employer] Urea nitrogen [Mass/Vol] 23 mg/dL High 8 - 20 mg/dL [facility] [employer] Urea nitrogen/Creatinine [Mass ratio] 19.0 mg/mg 12.0 - 20.0 [facility] Procalcitonin 0.11 ng/mL Normal <0.50 [facility] Comment on above: Order Comment: [...] 24 hours. Performed By: #### 2 4321-2 ####[facility] [id number] [place] [address] Hemogram and platelets WO di fferential panel (Bld)Ordered By: Essence Black on 11-12-2023 Erythrocyte distribution width (RBC) [Ratio] 14.1 % 11.0 - 14.8 % [facility] Hematocrit (Bld) [Volume fraction] 41.7 % 39.0 - 49.0 % [facility] Hemoglobin (Bld) [Mass/Vol] 13.4 g/dL Low 13.5 - 17.5 g/dL [facility] Interpretation and review of laboratory results Abnormal [facility] MCH (RBC) [Entitic mass] 30.2 pg [facility] MCHC (RBC) [Mass/Vol] 32.1 g/dL 30.8 - 35.3 g/dL [facility] MCV (RBC) [Entitic vol] 93.9 fL [facility] Platelet mean volume (Bld) [Entitic vol] 12.1 fL [facility] Platelets (Bld) [#/Vol] 147 10*3/uL [facility] RBC (Bld) [#/Vol] 4.44 10*6/uL [facility] WBC (Bld) [#/Vol] 7.6 10*3/uL [facility] Hemogram and platelets WO di fferential panel (Bld)on 11-12-2023 Erythrocyte distribution width (RBC) [Ratio] 14.1 % Normal 11.0-14.8 [facility] Comment on above: Performed By: #### 2 4317-0 ####[address] [address] Hematocrit (Bld) [Volume fraction] 41.7 % Normal 39.0-49.0 [facility] Comment on above: Performed By: #### 2 4317-0 ####[address] [address] Hemoglobin (Bld) [Mass/Vol] 13.4 g/dL Low 13.5-17.5 [facility] Comment on above: Performed By: #### 2 4317-0 ####[address] [address] MCH 30.2 pcg Normal 27.0-34.0 [facility] Comment on above: Performed By: #### 2 4317-0 ####[facility] [id number] [place] [address] [place] [address] MCHC (RBC) [Mass/Vol] 32.1 g/dL Normal 30.8-35.3 [facility] Comment on above: Performed By: #### 2 4317-0 ####[facility] [id number] [place] [address] MCV (RBC) [Entitic vol] 93.9 fL Normal 80.0-97.0 [facility] Comment on above: Performed By: #### 2 4317-0 ####[facility] [id number] [place] [address] Platelet mean volume (Bld) [Entitic vol] 12.1 fL Normal 6.2-12.1 [facility] Comment on above: Performed By: #### 2 4317-0 ####[facility] [id number] [place] [address] Platelets (Bld) [#/Vol] 147 10*3/uL Normal 142-424 [facility] Comment on above: Performed By: #### 2 4317-0 ####[facility] [id number] [place] [address] RBC (Bld) [#/Vol] 4.44 10*6/uL Normal 4.30-5.70 [facility] Comment on above: Performed By: #### 2 4317-0 ####[facility] [id number] [place] [address] WBC (Bld) [#/Vol] 7.6 10*3/uL Normal 4.6-10.2 [facility] Comment on above: Performed By: #### 2 4317-0 ####[facility] [id number] [place] [address] Procalcitoninon 11-12-2023 Procalcitonin [Mass/Vol] 0.11 ng/mL [facility] - 0.50 ng/mL [facility] Procalcitonin [Mass/Vol]on 0 11-12-2023 Interpretation and review of laboratory results Normal Proxino <0.5 Low risk of severe sepsis and/or [...] retest PCT within 6 to 24 hours. [employer] Tropinin I.cardiac panel Hig h sensitivity methodon 11-12-2023 Interpretation and review of laboratory results Abnormal [facility] Troponin I.cardiac High sensitivity method [Mass/Vol] 120 ng/L Critically high NINF - 20 ng/L [facility] [employer] High Sensitivity Troponin I 117 ng/L Critically high <20 [facility] Comment on above: Performed By: #### 6 00-7 #### [facility] ([facility]) LAB [address] [id number] Tropinin I.cardiac panel Hig h sensitivity methodOrdered By: Rosie Page on 11-12-2023 Interpretation and review of laboratory results Abnormal [facility] Troponin I.cardiac High sensitivity method [Mass/Vol] 117 ng/L Critically high NINF - 20 ng/L [facility] XR CHEST 1 VIEWon 11-12-2023 XR [...] Self Edit Transcribed Date: 11/12/2023 11:13 Normal [facility] XR Chest Single viewon 11-11 [...] By: Self Edit Transcribed Date: 11/12/2023 11:13 [facility] Study observation (narrative) [facility] XR Chest Single viewOrdered By: Kuldeep Angulo on 11-12-2023 [facility] Work Phone: Cobalamin (Vitamin B12) [Mas s/Vol]on 11-11-2023 Interpretation and review of laboratory results Normal [facility] [employer] Ferritinon 11-11-2023 Ferritin [Mass/Vol] 242 ng/mL 11 - 336 ng/mL [facility] [employer] Ferritin [Mass/Vol]on 2023 Interpretation and review of laboratory results Normal [facility] [employer] HbA1c (Bld) [Mass fraction]o n 11-11-2023 Glucose [Mass/Vol] 123 mg/dL [facility] Interpretation and review of laboratory results Abnormal Enma [employer] HbA1c values of 5.7-6.4 percent indicate an increased risk for developing diabetes mellitus. HbA1c values greater than or equal to 6.5 percent are diagnostic of diabetes mellitus. For diagnosis of diabetes in individuals without unequivocal hyperglycemia, results should be confirmed by repeat testing. [facility] [employer] Mean Bld Glu Estim. 123 mg/dL Normal [facility] Comment on above: Order Comment: HbA1c values of 5.7-6.4 percent indicate an increased risk for developing diabetes mellitus.HbA1c values greater than or equal to 6.5 percent are diagnostic of diabetes mellitus.For diagnosis of diabetes in individuals without unequivocal hyperglycemia, results should be confirmed by repeat testing. Performed By: #### 4 548-4 ####[facility] ([facility]) [id number] [place] [address] HbA1c MFr Bldon 11-11-2023 HbA1c (Bld) [Mass fraction] 5.9 % High <=5.6 [facility] Comment on above: Order Comment: HbA1c values of 5.7-6.4 percent indicate an increased risk for developing diabetes mellitus.HbA1c values greater than or equal to 6.5 percent are diagnostic of diabetes mellitus.For diagnosis of diabetes in individuals without unequivocal hyperglycemia, results should be confirmed by repeat testing. Performed By: #### 4 548-4 ####[facility] ([facility]) [id number] [place] [address] Hemoglobin A1con 11-11-2023 HbA1c (Bld) [Mass fraction] 5.9 % High NINF - 5.6 % En[facility] [employer] Hemogram and platelets WO di fferential panel [...] width (RBC) [Ratio] 13.8 % Normal 11.0-14.8 [facility] Comment on above: Performed By: #### 6 00-7 #### [facility] ([facility]) LAB [address] [place] [address] Hematocrit (Bld) [Volume fraction] 36.0 % Low 39.0-49.0 [facility] Comment on above: Performed By: #### 6 00-7 #### [facility] LAB [address] [place] [address] Hemoglobin (Bld) [Mass/Vol] 11.4 g/dL Low 13.5-17.5 [facility] Comment on above: Performed By: #### 6 00-7 #### [facility] LAB [address] [place] [address] Immature Platelet Fraction 5.8 % Normal 1.4-10.8 [facility] Comment on above: Performed By: #### 6 00-7 #### [facility] ([facility]) LAB [address] [place] [address] MCH 29.5 pcg Normal 27.0-34.0 [facility] Comment on above: Performed By: #### 6 -7 #### [facility] [place] [facility] [address] [place] [address] MCHC (RBC) [Mass/Vol] 31.7 g/dL Normal 30.8-35.3 [facility] Comment on above: Performed By: #### 6 -7 #### [facility] [place] [facility] [address] [place] [address] MCV (RBC) [Entitic vol] 93.3 fL Normal 80.0-97.0 [facility] Comment on above: Performed By: #### 6 -7 #### [facility] [place] [facility] [address] [place] [address] Platelet mean volume (Bld) [Entitic vol] 11.4 fL Normal 6.2-12.1 [facility] Comment on above: Performed By: #### 6 -7 #### [facility] [place] [facility] LAB [address] [place] [address] Platelets (Bld) [#/Vol] 126 10*3/uL Low 142-424 [facility] Comment on above: Performed By: #### 6 -7 #### [facility] [place] [facility] [address] [place] [address] RBC (Bld) [#/Vol] 3.86 10*6/uL Low 4.30-5.70 [facility] Comment on above: Performed By: #### 6 -7 #### [facility] [place] [facility] LAB [address] [place] [address] WBC (Bld) [#/Vol] 6.7 10*3/uL Normal 4.6-10.2 [facility] Comment on above: Performed By: #### 6 -7 #### [facility] [place] [facility] [address] [place] [address] Iron and Iron binding capaci ty panelon 11-11-2023 Interpretation and review of laboratory results Abnormal [facility] Iron [Mass/Vol] 37 ug/dL Low [facility] Iron binding capacity [Mass/Vol] 221 Low [facility] Iron saturation [Mass fraction] 17 % Low 20 - 55 % [facility] Vitamin B-12 209 pcg/mL Normal 180-914 [facility] Comment on above: Performed By: #### 5 0190-8 ####[facility] [id number] [place] [address] Tropinin I.cardiac panel Hig h sensitivity methodon 11-11-2023 Interpretation and review of laboratory results Abnormal [facility] Troponin I.cardiac High sensitivity method [Mass/Vol] 49 ng/L High NINF - 20 ng/L [facility] High Sensitivity Troponin I 49 ng/L High <20 [facility] Comment on above: Performed By: #### 8 9577-1 ####[facility] [id number] [place] [address] Interpretation and review of laboratory results Abnormal [facility] Troponin I.cardiac High sensitivity method [Mass/Vol] 36 ng/L High NINF - 20 ng/L [facility] Interpretation and review of laboratory results Abnormal [facility] Troponin I.cardiac High sensitivity method [Mass/Vol] 32 ng/L High NINF - 20 ng/L [facility] High Sensitivity Troponin I 32 ng/L High <20 [facility] Comment on above: Performed By: #### 8 9577-1 ####[facility] [id number] [place] [address] Vitamin B12on 11-11-2023 Cobalamin (Vitamin B12) [Mass/Vol] 209 pg/mL [facility] Bacteria Tiss Culton 024 Bacteria identified Cx Nom (Tiss) 1 ORGANISM 432 Abnormal Rare Corynebacterium species The organism value for this result has been updated. These results have been appended to the previously preliminary verified report. 2 ORGANISM 189 Abnormal Rare Enterococcus faecalis Performed on [id number] See previous culture for susceptibilities. The organism value for this result has been updated. These results have been appended to the previously preliminary verified report. Result component has been updated to reportable to [facility]. Gram Stain Result Status = F Rare [...] previously preliminary verified report. Invalid Interpretation Code [facility] Comment on above: Performed By: #### 4 3408-4 ####[facility] ([facility]) [id number] [place] [address] Bacteria identified Cx Nom (Tiss) 1 ORGANISM 432 Abnormal Rare Corynebacterium species The organism value for this result has been updated. These results have been appended to the previously preliminary verified report. 2 ORGANISM 189 Abnormal Rare Enterococcus faecalis Performed on [id number] The organism value for this result has been updated. These results have been appended to the previously preliminary verified report. Result component has been updated to reportable to [facility]. Gram Stain Result Status = F No [...] Islt 1 ug/ml Susceptible Invalid Interpretation Code [facility] Comment on above: Performed By: #### 4 3408-4 ####[facility] ([facility]) [id number] [place] [address] Basic metabolic 2000 panelon 11-10-2023 Anion gap [Moles/Vol] 7 mmol/L 6 - 18 [facility] Calcium [Mass/Vol] 8.2 mg/dL Low 8.9 - 10. 3 mg/dL [facility] Chloride [Moles/Vol] 108 mmol/L High 98 - 10 7 mmol/L [facility] CO2 [Moles/Vol] 25 mmol/L 22 - 32 mmol/L [facility] Creatinine [Mass/Vol] 0.96 mg/dL 0.60 - 1.30 mg/dL [facility] GFR/1.73 sq M.predicted among non-blacks MDRD (S/P/Bld) [Vol rate/Area] 82 mL/min/{1.73_m2} - PINF [facility] Comment on above: Calculation based on the Chronic Kidney Disease Epidemiology Collaboration (CKD-EPI) equation refit without adjustment for race. Glucose [Mass/Vol] 106 mg/dL High 70 - 99 mg/dL [facility] [email or web address] Interpretation and review of laboratory results Abnormal [facility] Potassium [Moles/Vol] 3.8 mmol/L 3.6 - 5.1 mmol/L [facility] Sodium [Moles/Vol] 140 mmol/L 136 - 145 mmol/L [facility] Urea nitrogen [Mass/Vol] 21 mg/dL High 8 - 20 mg/dL [facility] Urea nitrogen/Creatinine [Mass ratio] 21.9 mg/mg High 12.0 - 20.0 [employer] ECG 12 leadOrdered By: Darrius Gonzales on 11-10-2023 P Wave Osborne 71 degrees [facility] Phone: P-R Interval 156 ms [facility] Phone: Pathologist interpretation (Bld) [Interp] Sinus rhythm with occasional Premature ventricular complexes and Premature atrial complexes Left axis deviation Minimal voltage criteria for LVH, may be normal variant ( Waddington product ) Inferior infarction , age undetermined Anterolateral infarct , age undetermined QTcB >= 480 msec Abnormal ECG Confirmed by Darrius Gonzales ([id number]), assignment editor Yen Jeffery ([id number]) on 11/10/2023 6:27:35 AM [facility] Phone: Q-T Interval 426 ms [employer] Phone: QRS Duration 114 ms [employer] Phone: QTc 497 ms [employer] Phone: [phone] R Osborne -56 degrees [employer] Work Phone: [phone] Troponin T.cardiac [Mass/Vol] 23 ug/L degrees [facility] Work Phone: [phone] [facility] Work Phone: [phone] Hemogram and platelets WO di fferential panel (Bld)on 11-10-2023 Erythrocyte distribution width (RBC) [Ratio] 13.7 % 11.0 - 14.8 % [facility] [employer] Hematocrit (Bld) [Volume fraction] 36.6 % Low 39.0 - 49.0 % [facility] [employer] Hemoglobin (Bld) [Mass/Vol] 11.9 g/dL Low 13.5 - 17.5 g/dL [facility] [employer] Immature Platelet Fraction 5.4 % 1.4 - 10.8 % [facility] [employer] Interpretation and review of laboratory results Abnormal [facility] [employer] MCH (RBC) [Entitic mass] 29.9 pg [facility] [employer] MCHC (RBC) [Mass/Vol] 32.5 g/dL 30.8 - 35.3 g/dL [facility] [employer] MCV (RBC) [Entitic vol] 92.0 fL [facility] [employer] Platelet mean volume (Bld) [Entitic vol] 11.0 fL [facility] [employer] Platelets (Bld) [#/Vol] 131 10*3/uL Low [facility] RBC (Bld) [#/Vol] 3.98 10*6/uL Low [facility] WBC (Bld) [#/Vol] 5.0 10*3/uL [facility] Erythrocyte distribution width (RBC) [Ratio] 13.7 % Normal 11.0-14.8 [facility] Comment on above: Performed By: #### 2 4317-0 ####[facility] [id number] [place] [address] Hematocrit (Bld) [Volume fraction] 36.6 % Low 39.0-49.0 [facility] Comment on above: Performed By: #### 2 4317-0 ####[facility] [id number] [place] [address] Hemoglobin (Bld) [Mass/Vol] 11.9 g/dL Low 13.5-17.5 [facility] Comment on above: Performed By: #### 2 4317-0 ####[address] [address] Immature Platelet Fraction 5.4 % Normal 1.4-10.8 [facility] Comment on above: Performed By: #### 2 4317-0 ####[address] [address] MCH 29.9 pcg Normal 27.0-34.0 [facility] Comment on above: Performed By: #### 2 4317-0 ####[address] [address] MCHC (RBC) [Mass/Vol] 32.5 g/dL Normal 30.8-35.3 [facility] Comment on above: Performed By: #### 2 4317-0 ####[address] [address] MCV (RBC) [Entitic vol] 92.0 fL Normal 80.0-97.0 [facility] Comment on above: Performed By: #### 2 4317-0 ####[address] [address] Platelet mean volume (Bld) [Entitic vol] 11.0 fL Normal 6.2-12.1 [facility] Comment on above: Performed By: #### 2 4317-0 ####[address] [address] Platelets (Bld) [#/Vol] 131 10*3/uL Low 142-424 [facility] Comment on above: Performed By: #### 2 4317-0 ####[address] [place] [address] RBC (Bld) [#/Vol] 3.98 10*6/uL Low 4.30-5.70 [facility] Comment on above: Performed By: #### 2 4317-0 ####[facility] [id number] [place] [address] WBC (Bld) [#/Vol] 5.0 10*3/uL Normal 4.6-10.2 [facility] Comment on above: Performed By: #### 2 4317-0 ####[facility] [id number] [place] [address] Laboratory - CoagulationOrde red By: Darrius Gonzales on 11-10-2023 ACT Coag (Bld) 82 s BPM [facility] [employer] Work Phone: Lactate (Bld) [Mass/Vol]on 0 11-10-2023 Interpretation and review of laboratory results Normal [facility] [employer] Lactate [Moles/Vol] 1.3 mmol/L 0.5 - 2. 0 mmol/L [facility] Lactate [Moles/Vol] 1.3 mmol/L Normal 0.5-2.0 [facility] Comment on above: Performed By: #### 6 00-7 #### [facility] LAB [address] [place] [address] PST green LI heparin tubeon 11-10-2023 Specimen source Nom (Unsp spec) Hold for add-ons. [facility] Comment on above: Auto resulted. [facility] Tropinin I.cardiac panel Hig h sensitivity methodon 11-10-2023 Interpretation and review of laboratory results Abnormal [facility] [employer] Troponin I.cardiac High sensitivity method [Mass/Vol] 36 ng/L High NINF - 20 ng/L [facility] [employer] [facility] [employer] Interpretation and review of laboratory results Abnormal [facility] [employer] Troponin I.cardiac High sensitivity method [Mass/Vol] 36 ng/L High NINF - 20 ng/L [facility] High Sensitivity Troponin I 36 ng/L High <20 [facility] Comment on above: Performed By: #### 6 36-1 #### [facility] LAB [address] [place] [address] [facility] LAB [address] [place] [address] Performed By: #### 6 00-7 #### [facility] LAB [address] [place] [address] Interpretation and review of laboratory results Abnormal [facility] Troponin I.cardiac High sensitivity method [Mass/Vol] 39 ng/L High NINF - 20 ng/L [facility] Anion gap [Moles/Vol] 7 mmol/L Normal 6-18 [facility] Comment on above: Performed By: #### 6 36-1 #### [facility] LAB [address] [place] [address] [facility] LAB [address] [place] [address] Calcium [Mass/Vol] 8.2 mg/dL Low 8.9-10.3 [facility] Comment on above: Performed By: #### 6 36-1 #### [facility] ([facility]) LAB [address] [place] [address] [facility] LAB [address] [place] [address] Chloride [Moles/Vol] 108 mmol/L High 98-107 [facility] t [facility] Comment on above: Performed By: #### 6 36-1 #### [facility] LAB [address] [place] [address] [facility] LAB [address] [place] [address] CO2 [Moles/Vol] 25 mmol/L Normal 22-32 [facility] Comment on above: Performed By: #### 6 36-1 #### [facility] LAB [address] [place] [address] [facility] LAB [address] [place] [address] Creatinine [Mass/Vol] 0.96 mg/dL Normal 0.60-1.30 [facility] Comment on above: Performed By: #### 6 36-1 #### [facility] ([facility]) LAB [address] [place] [address] [facility] LAB [address] [place] [address] GFR/1.73 sq M.predicted among non-blacks MDRD (S/P/Bld) [Vol rate/Area] 82 mL/min/{1.73_m2} Normal >=60 [facility] Comment on above: Result Comment: Calc ulation based on the?Chronic Kidney Disease Epidemiology Collaboration (CKD-EPI) equation refit?without adjustment for race. Performed By: #### 6 36-1 #### [facility] ([facility]) LAB [address] [place] [address] [facility] LAB [facility] [place] [address] Glucose [Mass/Vol] 106 mg/dL High 70-99 [facility] Comment on above: Performed By: #### 6 36-1 #### [facility] ([facility]) LAB [address] [place] [address] [facility] LAB [address] [place] [place] [address] Potassium [Moles/Vol] 3.8 mmol/L Normal 3.6-5.1 [facility] Comment on above: Performed By: #### 6 36-1 #### [facility] ([facility]) LAB [address] [place] [address] [facility] LAB [address] [place] [address] Sodium [Moles/Vol] 140 mmol/L Normal 136-145 [facility] Comment on above: Performed By: #### 6 36-1 #### [facility] ([facility]) LAB [address] [place] [address] [facility] LAB [address] [place] [place] [address] Urea nitrogen [Mass/Vol] 21 mg/dL High 8-20 [facility] Comment on above: Performed By: #### 6 36-1 #### [facility] LAB [address] [place] [address] [facility] LAB [address] [place] [address] Urea nitrogen/Creatinine [Mass ratio] 21.9 mg/mg High 12.0-20.0 [facility] Comment on above: Performed By: #### 6 36-1 #### [facility] LAB [address] [place] [address] [facility] LAB [address] [place] [address] [facility] TransthoracicOrdere d By: Bob Marte on 11-10-2023 Ao VTI 32.2 cm [employer] Phone: [phone] Aortic Root 3.1 cm [employer] Phone: Aortic Root Index 1.43 cm/m2 [employer] Phone: Ascending Aorta 3.2 cm [employer] Phone: Ascending Aorta Index 1.47 cm/m2 [facility] [employer] Phone: [phone] AV Area Continuity Equation 1.8 cm2 [employer] Phone: [phone] AV Area Peak Velocity 1.7 cm2 [facility] [employer] Phone: AV Mean Gradient 7 mmHg [employer] Phone: AV Peak Gradient 14 mmHg [employer] Phone: [phone] AV Peak Carlito 1.9 m/s [employer] Phone: [phone] AV Velocity Ratio 0.53 [employer] Phone: [phone] YASSINE Index (Pk Carlito) 0.78 cm2/m2 [facility] [employer] Phone: [phone] YASSINE Index (VTI) 0.83 cm2/m2 [facility] [employer] Phone: Body surface area Derived from formula 2.22 m2 [facility] [employer] Phone: E Wave Deceleration Time 214 ms 119 - 242 ms [facility] [employer] Phone: E/E' Ratio Averaged 16 Yvette ty [employer] Work Phone: E/E' Ratio Lateral 10 Trin y [employer] Work Phone: E/E' Ratio Septal 23 [employer] [employer] Phone: Ejection Fraction (3D) 50 % Tr [facility] [employer] Phone: FS 26 % [facility] [employer] Phone: GLS -14.8 % [facility] [employer] Phone: Interpretation and review of laboratory results Abnormal [facility] [employer] Phone: IVSD 1.4 cm Abnormal 0.6 - 1.0 cm [facility] [employer] Phone: LA Area Sys (A2C) 22 cm2 [facility] [employer] Phone: LA Area Sys (A4C) 19 cm2 [facility] [employer] Phone: LA Dimension Index 2D 2.2 cm/m2 Tri [facility] [employer] Phone: [phone] LA Size 4.7 cm [facility] Phone: LA Volume (BP) 62 mL [facility] Phone: LA Volume Index (BP) 29 mL/m2 [facility] [employer] Phone: LA/Ao Ratio 1.5 [employer] Phone: Left Atrium Major Osborne 5.5 cm Tr [facility] [employer] Phone: Left Atrium Minor Osborne 6.4 cm Tr [facility] [employer] Phone: LV Bunn Vol 3D 209 mL [employer] Phone: [phone] LV EDV Index (3D) 96 mL/m2 [employer] Phone: [phone] LV ESV Index (3D) 48 mL/m2 [employer] Phone: [phone] LV Mass 2D 331 g [employer] Phone: LV Mass 3D 211 g [employer] Phone: [phone] LV Mass Index 2D 153 g/m2 [employer] Phone: [phone] LV Mass Index 3D 97 g/m2 [employer] Phone: [phone] LV Sys Vol 3D 104 mL [employer] Phone: [phone] LVIDD 5.8 cm 4.2 - 5.8 cm [employer] Phone: [phone] LVIDD Index 2.67 cm/m2 [employer] Phone: [phone] LVIDS 4.3 cm Abnormal 2.5 - 4.0 cm [employer] Phone: [phone] LVIDS Index 1.98 cm/m2 [employer] Phone: [phone] LVOT Area 3.1 cm2 [employer] Phone: [phone] LVOT Diameter 2.0 cm [employer] Phone: [phone] LVOT flow 220 mL/s [employer] Phone: [phone] LVOT Mean Grad 2 mmHg [employer] Phone: [phone] LVOT Mean Carlito 0.7 m/s [employer] Phone: [phone] LVOT Peak Gradient 4 mmHg [employer] Phone: [phone] LVOT Peak Carlito 1.0 m/s [employer] Phone: LVOT Peak VTI 18.4 cm [employer] Phone: LVOT Stroke Index 27 mL/m2 [employer] Phone: LVOT Stroke Volume [address] Phone: [phone] LVOT:AV VTI Index 0.57 [employer] Phone: [phone] LVPWD 1.2 cm Abnormal 0.6 - 1.0 cm [employer] Phone: Microscopic observation Alfredito (Ear) [Interp] 1.5 [employer] Phone: MV E' Tissue Velocity Lateral 9 cm/s [employer] Phone: MV E' Tissue Velocity Septal 4 cm/s [employer] Phone: MV Peak A Carlito 0.59 m/s [employer] Phone: MV Peak E Carlito 0.91 m/s [employer] Phone: Relative Wall Thickness ratio 0.41 [employer] Phone: RV Diastolic Basal Dimension 4.2 cm Abnormal 2.5 - 4.1 cm [employer] Phone: RV Diastolic Length 9.2 cm Abnormal 5.9 - 8.3 cm Tri [facility] [employer] Phone: RV Diastolic Mid Dimension 2.7 cm 1.9 - 3.5 cm [employer] Phone: RV S' 17 cm/s [employer] Phone: TR Peak Gradient 35 mmHg [employer] Phone: TR Peak Velocity 2.97 m/s [employer] Phone: [phone] [employer] Phone: Heart Transthoracicon Left Ventricle: Left ventricle [...] artifact. CV PACS Radiology Study observation (narrative) [facility] 12-Lead ECGon 11-09-2023 P Wave Osborne 69 degrees [facility] P-R Interval 154 ms [facility] Pathologist interpretation (Bld) [Interp] Normal sinus rhythm Left axis deviation Minimal voltage criteria for LVH, may be normal variant ( Waddington product ) Inferior infarction , age undetermined Abnormal ECG Confirmed by Reilly NI, Morgan ([id number]), assignment editor Yen Jeffery ([id number]) on 11/09/2023 6:21:32 AM [facility] Q-T Interval 436 ms [facility] QRS Duration 112 ms [facility] QTc 457 ms [facility] R Osborne -33 degrees [facility] Troponin T.cardiac [Mass/Vol] 6 ug/L degrees [facility] Bacteria Bld Culton 11-09-19 24 Bacteria identified Cx Nom (Bld) Culture, Blood Status = F No growth at 5 days Normal [facility] Comment on above: Order Comment: From a different site than #1. Performed By: #### 6 00-7 #### [facility] [place] ([facility]) LAB [address] [place] [address] Bacteria identified Cx Nom (Bld) Culture, Blood Status = F No growth at 5 days Normal [facility] Comment on above: Performed By: #### 6 00-7 #### [facility] [place] ([facility] [address] [place] [address] Basic metabolic 2000 panelon 11-09-2023 Anion gap [Moles/Vol] 10 mmol/L 6 - 18 [facility] Calcium [Mass/Vol] 8.3 mg/dL Low 8.9 - 10. 3 mg/dL [facility] Chloride [Moles/Vol] 107 mmol/L 98 - 10 7 mmol/L [facility] CO2 [Moles/Vol] 25 mmol/L 22 - 32 mmol/L [facility] Creatinine [Mass/Vol] 1.22 mg/dL 0.60 - 1.30 mg/dL [facility] GFR/1.73 sq M.predicted among non-blacks MDRD (S/P/Bld) [Vol rate/Area] 61 mL/min/{1.73_m2} - PINF [facility] Comment on above: Calculation based on the Chronic Kidney Disease Epidemiology Collaboration (CKD-EPI) equation refit without adjustment for race. Glucose [Mass/Vol] 154 mg/dL High 70 - 99 mg/dL [facility] Interpretation and review of laboratory results Abnormal [facility] [employer] Potassium [Moles/Vol] 3.9 mmol/L 3.6 - 5.1 mmol/L [facility] Sodium [Moles/Vol] 142 mmol/L 136 - 145 mmol/L [facility] [employer] Urea nitrogen [Mass/Vol] 16 mg/dL 8 - 20 mg/dL [facility] Urea nitrogen/Creatinine [Mass ratio] 13.1 mg/mg 12.0 - 20.0 [facility] Procalcitonin 0.06 ng/mL Normal <0.50 [facility] Comment on above: Order Comment: [...] 24 hours. Performed By: #### 2 4321-2 ####[facility] [id number] [place] [address] Blood type and Indirect anti body screen panel (Bld)on 11-09-2023 ABO group Nom (Bld) A [facility] Blood group antibody screen Ql Negative [facility] Rh Nom (Bld) Negative [facility] ABO group Nom (Bld) A Normal [facility] Comment on above: Performed By: #### 6 36-1 #### [facility] ([facility]) LAB [address] [place] [address] [facility] [address] [place] [address] Rh Type Negative Normal [facility] Comment on above: Performed By: #### 6 36-1 #### [facility] ([facility]) LAB [address] [place] [address] [facility] [address] [place] [address] Laboratory - Coagulationon 11-09-2023 ACT Coag (Bld) 66 s BPM [facility] Lactate (Bld) [Mass/Vol]on 11-09-2023 Interpretation and review of laboratory results Abnormal [facility] Lactate [Moles/Vol] 3.4 mmol/L High 0.5 - 2. 0 mmol/L [facility] Lactate [Moles/Vol] 3.4 mmol/L High 0.5-2.0 [facility] Comment on above: Performed By: #### 6 00-7 #### [facility] ([facility]) LAB [address] [place] [address] Interpretation and review of laboratory results Normal [facility] Lactate [Moles/Vol] 2.0 mmol/L 0.5 - 2. 0 mmol/L [facility] Lactate [Moles/Vol] 2.0 mmol/L Normal 0.5-2.0 [facility] Comment on above: Performed By: #### 5 9032-3 ####[facility] ([facility] [id number] [place] [address] MR FOOT WO AND W CONTRAST LE [...] Self Edit Transcribed Date: 11/09/2023 09:15 Normal [facility] MR Foot - left WO [...] By: Self Edit Transcribed Date: 11/09/2023 09:15 [employer] WirelessCRIBE EXAMINATION TYPE: MR FOOT WO AND W [...] Self Edit Transcribed Date: 11/09/2023 09:15 [facility] [employer] MR Foot - left WO and W cont rast IVOrdered By: Roberto Torres on 11-09-2023 [facility] Work Phone: Magnesiumon 11-09-2023 Magnesium [Mass/Vol] 1.8 mg/dL 1.8 - 2 .5 mg/dL [facility] Magnesium [Mass/Vol]on 11-08 Interpretation and review of laboratory results Normal [facility] High Sensitivity Troponin I 35 ng/L High <20 [facility] Comment on above: Performed By: #### 1 9123-9 #### [facility] LAB [address] [place] [address] No Panel Informationon 11-08 Radiology Study observation (narrative) [facility] 1. Peribronchial cuffing which can be seen [...] By: Self Edit Transcribed Date: 11/09/2023 00:06 [employer] WirelessCRIBATEME EXAMINATION TYPE: XR FOOT 3+ VIEWS LEFT, [...] By: Self Edit Transcribed Date: 11/09/2023 00:06 [facility] No Panel InformationOrdered By: Vickey Joshi on 11-09-2023 [facility] Work Phone: PT Coag (PPP) [Time]on 11-08 INR Coag (PPP) [Relative time] 0.9 {INR} NINF - 5.0 [facility] Interpretation and review of laboratory results Normal [facility] PT Coag (Bld) [Time] 13.0 s [employer] The recommended therapeutic INR range for most cardiac indications is 2.0-3.0 For high intensity therapy (i.e. mechanical heart valves), the recommended range is 2.5-3.5 [employer] aPTT Coag (Bld) [Time] 26.5 s Normal 23.3-35.3 Mo [facility] Comment on above: Order Comment: The r ecommended therapeutic INR range for most cardiac indications is 2.0-3.0For high intensity therapy (i.e. mechanical heart valves), the recommended range is 2.5-3.5 Performed By: #### 6 00-7 #### [facility] ([facility]) LAB [address] [place] [address] Procalcitoninon 11-09-2023 Procalcitonin [Mass/Vol] 0.06 ng/mL NINF - 0.50 ng/mL [facility] Procalcitonin [Mass/Vol]on 0 11-09-2023 Interpretation and review of laboratory results Normal [facility] <0.5 Low risk of severe sepsis and/or [...] retest PCT within 6 to 24 hours. [employer] TRANSTHORACIC ECHOCARDIOGRAM (TTE) COMPLETE (CONTRAST/BUBBLE/3D PRN)on 11-09-2023 [...] BSA FOR ECHO PROCEDURE: 2.22 m2 Normal [facility] Tropinin I.cardiac panel Hig h sensitivity methodon 11-09-2023 Interpretation and review of laboratory results Abnormal [facility] Troponin I.cardiac High sensitivity method [Mass/Vol] 35 ng/L High NINF - 20 ng/L [employer] Interpretation and review of laboratory results Abnormal [facility] Troponin I.cardiac High sensitivity method [Mass/Vol] 45 ng/L High NINF - 20 ng/L [employer] US.doppler Lower extremity a rtery - bilateralOrdered By: Kang Blackwell on 11-09-2023 Body surface area Derived from formula 2.22 m2 [facility] Work Phone: [phone] Left GEORGETTE 1.01 [facility] [employer] Work Phone: Left arm BP 145 mmHg [facility] Work Phone: Left Dorsalis Pedis 131 mmHg [facility] Work Phone: Left posterior tibial 147 mmHg Tri nity [employer] Work Phone: Left TBI 0.63 [facility] Work Phone: Left toe pressure 91 mmHg [facility] Work Phone: Right GEORGETTE 1.09 [facility] [employer] Work Phone: Right Dorsalis Pedis 141 mmHg Kassy ity [employer] Work Phone: Right posterior tibial 158 mmHg Tr inity [employer] Work Phone: Right TBI 0.59 [facility] [employer] Work Phone: Right toe pressure 86 mmHg Trinit y [employer] Work Phone: [facility] [employer] Work Phone: US.doppler Lower extremity a rtery [...] are normal. Toe photoplethysmography waveforms are normal. Bronc Buster Details A doppler analysis ultrasound was performed. [...] 131 1.01 1.09 0.63 0.59 2.22 Normal [facility] aPTT Coag (Bld) [Time]on aPTT Coag (PPP) [Time] 26.5 s Tr [facility] [employer] Interpretation and review of laboratory results Normal [facility] [employer] Basic metabolic 2000 panelon 11-08-2023 Anion gap [Moles/Vol] 7 mmol/L 6 - 18 [facility] Calcium [Mass/Vol] 8.0 mg/dL Low 8.9 - 10. 3 mg/dL [facility] [employer] Chloride [Moles/Vol] 110 mmol/L High 98 - 10 7 mmol/L [facility] [employer] CO2 [Moles/Vol] 23 mmol/L 22 - 32 mmol/L [facility] [employer] Creatinine [Mass/Vol] 1.19 mg/dL 0.60 - 1.30 mg/dL [facility] GFR/1.73 sq M.predicted among non-blacks MDRD (S/P/Bld) [Vol rate/Area] 63 mL/min/{1.73_m2} - PINF [facility] Comment on above: Calculation based on the Chronic Kidney Disease Epidemiology Collaboration (CKD-EPI) equation refit without adjustment for race. Glucose [Mass/Vol] 144 mg/dL High 70 - 99 mg/dL [facility] [employer] Interpretation and review of laboratory results Abnormal [facility] Potassium [Moles/Vol] 4.2 mmol/L 3.6 - 5.1 mmol/L [facility] Sodium [Moles/Vol] 140 mmol/L 136 - 145 mmol/L [facility] Urea nitrogen [Mass/Vol] 16 mg/dL 8 - 20 mg/dL [facility] [employer] Urea nitrogen/Creatinine [Mass ratio] 13.4 mg/mg 12.0 - 20.0 [facility] [employer] High Sensitivity Troponin I 44 ng/L High <20 [facility] Comment on above: Performed By: #### 2 4321-2 ####[facility] [id number] [place] [address] C-reactive proteinon 024 CRP [Mass/Vol] 2.3 mg/dL High 0.0 - 1.0 mg/dL [facility] CBC W Differential panel, ne thod unspecified (Bld)on 11-08-2023 Basophils (Bld) [#/Vol] 0.01 10*3/uL [facility] Basophils/100 WBC (Bld) 0.3 % 0.0 - 2.0 % [facility] Eosinophils (Bld) [#/Vol] 0.04 10*3/uL [facility] Eosinophils/100 WBC (Bld) 1.0 % 0.0 - 7.0 % [facility] Erythrocyte distribution width (RBC) [Ratio] 13.8 % 11.0 - 14.8 % [facility] Hematocrit (Bld) [Volume fraction] 39.4 % 39.0 - 49.0 % [facility] Hemoglobin (Bld) [Mass/Vol] 12.9 g/dL Low 13.5 - 17.5 g/dL [facility] Immature granulocytes (Bld) [#/Vol] 0.02 10*3/uL [facility] Immature granulocytes/100 WBC (Bld) 0.5 % 0.0 - 1.2 % [facility] Immature Platelet Fraction 4.0 % 1.4 - 10.8 % [facility] Interpretation and review of laboratory results Abnormal [...] Health Sed Rate 39 mm/hr High 0-15 [facility] Comment on above: Performed By: #### 6 36-1 #### [facility] [address] [place] [address] [facility] [address] [place] [address] CRP [Mass/Vol]on 11-08-2023 Interpretation and review of laboratory results Abnormal [facility] ESR (Bld) [Velocity]on 11-07 Interpretation and review of laboratory results Abnormal [facility] Lactate (Bld) [Mass/Vol]on 0 11-08-2023 Interpretation and review of laboratory results Abnormal [facility] Lactate [Moles/Vol] 2.2 mmol/L High 0.5 - 2. 0 mmol/L [facility] Lactate [Moles/Vol] 2.2 mmol/L High 0.5-2.0 [facility] Comment on above: Performed By: #### 6 36-1 #### [facility] [address] [facility] [place] [address] [facility] [address] [place] [address] Natriuretic peptide B [Mass/ Vol]on 11-08-2023 Interpretation and review of laboratory results Abnormal [facility] Natriuretic peptide B (Bld) [Mass/Vol] 316 pg/mL High [facility] <100: CHF is unlikel y 100-400: Possible left ventricular dysfunction-unlikely acute decompensation >400: Suspicious for decompensated heart failure. [employer] BNP 316 pcg/mL High 0-100 [facility] Comment on above: Order Comment: <100: CHF is [id number]: Possible left ventricular dysfunction-unlikely acute decompensation>400: Suspicious for decompensated heart failure. Performed By: #### 3 0934-4 ####[facility] [id number] [place] [address] No Panel Informationon 11-07 Radiology Study observation (narrative) [facility] Sedimentation rateon 024 ESR (Bld) [Velocity] 39 mm/h High [employer] Tropinin I.cardiac panel Hig h sensitivity methodon 11-08-2023 Interpretation and review of laboratory results Abnormal [facility] Troponin I.cardiac High sensitivity method [Mass/Vol] 44 ng/L High NINF - 20 ng/L [employer] XR CHEST 1 VIEWon 11-08-2023 XR CHEST [...] Self Edit Transcribed Date: 11/09/2023 00:06 Normal [facility] XR FOOT 3+ VIEWS LEFTon [...] Self Edit Transcribed Date: 11/09/2023 00:06 Normal [facility] ANAon 10-30-2023 CNOV Office Visit (UCWSTR ) YONI VILLALPANDO ([id number]) 1945 M Date Time Provider Department 10/30/23 1:00 PM AAKASH JIANG [facility] During your visit today, we recorded the following information about you: Aakash Jiang APRN.CNP 10/30/2023 1:07 PM Signed On [...] care and patient will self transport to [facility]. Patient otherwise is nontoxic-appearing. Emelia Gresham [...] - azelastine 0.1% nasal spray Use 1 [place] in each nostril two times a day. [...] (FLONASE) 50 mcg/actuation nasal spray Use 1 [place] in the nose once daily. - furosemide [...] MG TABLE (more content not included)... Normal [facility] Bacteria identified Sterile body fluid culture Nom (Unsp spec)Ordered By: Marty Mosquera on 01-09-2023 Bacteria identified Cx Nom (Body fld) No growth at 2 days [facility] Microscopic observation Gram stain Nom (Unsp spec) Few Polymorphonuclear leukocytes [facility] Microscopic observation Gram stain Nom (Unsp spec) No Epithelial cells [facility] Microscopic observation Gram stain Nom (Unsp spec) No organisms seen [facility] Basic metabolic 2000 panelon 01-09-2023 Anion gap [Moles/Vol] 9 mmol/L 6 - 18 [facility] Calcium [Mass/Vol] 8.1 mg/dL Low 8.9 - 10. 3 mg/dL [facility] Chloride [Moles/Vol] 108 mmol/L High 98 - 10 7 mmol/L [facility] [employer] CO2 [Moles/Vol] 22 mmol/L 22 - 32 mmol/L [facility] Creatinine [Mass/Vol] 1.07 mg/dL 0.60 - 1.30 mg/dL [facility] GFR/1.73 sq M.predicted among non-blacks MDRD (S/P/Bld) [Vol rate/Area] 72 mL/min/{1.73_m2} - [facility] Comment on above: Calculation based on the Chronic Kidney Disease Epidemiology Collaboration (CKD-EPI) equation refit without adjustment for race. Glucose [Mass/Vol] 100 mg/dL High 70 - 99 mg/dL [facility] Potassium [Moles/Vol] 4.2 mmol/L 3.6 - 5.1 mmol/L [facility] Sodium [Moles/Vol] 139 mmol/L 136 - 145 mmol/L [facility] Urea nitrogen [Mass/Vol] 16 mg/dL 8 - 20 mg/dL [facility] [employer] Urea nitrogen/Creatinine [Mass ratio] 15.0 mg/mg 12.0 - 20.0 [facility] Vancomycin Pk 18.9 mcg/mL Low 30.0-60.0 [facility] Comment on above: Order Comment: Danielle naqvi draw vancomycin PEAK 1 hour after the end of the infusion Performed By: #### 2 4321-2 ####[facility] [id number] [place] [address] Hemogram and platelets WO di fferential panel [...] Health RBC (Bld) [#/Vol] 3.19 10*6/uL Low [facility] WBC (Bld) [#/Vol] 5.3 10*3/uL [facility] Basophils (Bld) [#/Vol] 0.01 10*3/uL Normal 0.00-0.20 [facility] Comment on above: Performed By: #### 6 00-7 #### [facility] [place] [facility] [address] [place] [address] Basophils/100 WBC (Bld) 0.2 % Normal 0.0-2.0 [facility] Comment on above: Performed By: #### 6 00-7 #### [facility] [place] [facility] [address] [place] [address] Eosinophils (Bld) [#/Vol] 0.10 10*3/uL Normal 0.00-0.70 [facility] Comment on above: Performed By: #### 6 00-7 #### [facility] [place] [facility] [address] [place] [address] Eosinophils/100 WBC (Bld) 1.9 % Normal 0.0-7.0 [facility] Comment on above: Performed By: #### 6 00-7 #### [facility] [place] [facility] [address] [place] [address] Erythrocyte distribution width (RBC) [Ratio] 13.2 % Normal 11.0-14.8 [facility] Comment on above: Performed By: #### 6 00-7 #### [facility] [place] [facility] [address] [place] [address] Hematocrit (Bld) [Volume fraction] 29.7 % Low 39.0-49.0 [facility] Comment on above: Performed By: #### 6 00-7 #### [facility] [place] [facility] [address] [place] [address] Hemoglobin (Bld) [Mass/Vol] 9.7 g/dL Low 13.5-17.5 [facility] Comment on above: Performed By: #### 6 -7 #### [facility] [place] [facility] [address] [place] [phone] Immature granulocytes (Bld) [#/Vol] 0.02 10*3/uL Normal 0.00-0.10 [facility] Comment on above: Performed By: #### 6 -7 #### [facility] [place] [facility] [address] [place] [address] Immature granulocytes/100 WBC (Bld) 0.4 % Normal 0.0-1.2 [facility] Comment on above: Performed By: #### 6 -7 #### [facility] [place] [facility] [address] [place] [address] Lymphocytes (Bld) [#/Vol] 1.49 10*3/uL Normal 1.00-4.80 [facility] Comment on above: Performed By: #### 6 -7 #### [facility] [place] [facility] [address] [place] [address] Lymphocytes/100 WBC (Bld) 28.3 % Normal 17.9-49.6 [facility] Comment on above: Performed By: #### 6 -7 #### [facility] [place] [facility] [address] [place] [address] MCH 30.4 pcg Normal 27.0-34.0 [facility] Comment on above: Performed By: #### 6 -7 #### [facility] [place] [facility] [address] [place] [address] MCHC (RBC) [Mass/Vol] 32.7 g/dL Normal 30.8-35.3 [facility] Comment on above: Performed By: #### 6 -7 #### [facility] [place] [facility] [address] [place] [address] MCV (RBC) [Entitic vol] 93.1 fL Normal 80.0-97.0 [facility] Comment on above: Performed By: #### 6 -7 #### [facility] ([facility]) LAB [address] [place] [address] Monocytes (Bld) [#/Vol] 0.58 10*3/uL Normal 0.00-0.90 [facility] Comment on above: Performed By: #### 6 -7 #### [facility] [place] [facility] [address] [place] [address] Monocytes/100 WBC (Bld) 11.0 % Normal 0.0-12.0 [facility] Comment on above: Performed By: #### 6 -7 #### [facility] [place] [facility] [address] [place] [address] Neutrophils Absolute 3.06 K/mcL Normal 1.80-7.70 [facility] Comment on above: Performed By: #### 6 -7 #### [facility] [place] [facility] [address] [place] [address] Neutrophils/100 WBC (Bld) 58.2 % Normal 38.1-75.5 [facility] Comment on above: Performed By: #### 6 -7 #### [facility] [place] [facility] [address] [place] [address] Platelet mean volume (Bld) [Entitic vol] 11.1 fL Normal 6.2-12.1 [facility] Comment on above: Performed By: #### 6 -7 #### [facility] [place] [facility] [address] [place] [address] Platelets (Bld) [#/Vol] 155 10*3/uL Normal 142-424 [facility] Comment on above: Performed By: #### 6 -7 #### [facility] [place] [facility] [address] [place] [address] RBC (Bld) [#/Vol] 3.19 10*6/uL Low 4.30-5.70 [facility] Comment on above: Performed By: #### 6 -7 #### [facility] [place] [facility] [address] [place] [address] WBC (Bld) [#/Vol] 5.3 10*3/uL Normal 4.6-10.2 [facility] Comment on above: Performed By: #### 6 00-7 #### [facility] [address] [place] [address] No Panel Informationon 01-09 Interpretation and review of laboratory results Abnormal [facility] [employer] Vancomycin peak [Moles/Vol]o n 01-09-2023 Vancomycin peak [Mass/Vol] 18.9 Low [facility] Basic metabolic 2000 panelon 01-08-2023 Anion gap [Moles/Vol] 5 mmol/L Low 6 - 18 [employer] Calcium [Mass/Vol] 7.6 mg/dL Low 8.9 - 10. 3 mg/dL [facility] Chloride [Moles/Vol] 109 mmol/L High 98 - 10 7 mmol/L [facility] CO2 [Moles/Vol] 24 mmol/L 22 - 32 mmol/L [facility] Creatinine [Mass/Vol] 1.18 mg/dL 0.60 - 1.30 mg/dL [facility] GFR/1.73 sq M.predicted among non-blacks MDRD (S/P/Bld) [Vol rate/Area] 64 mL/min/{1.73_m2} - PINF [facility] [employer] Comment on above: Calculation based on the Chronic Kidney Disease Epidemiology Collaboration (CKD-EPI) equation refit without adjustment for race. Glucose [Mass/Vol] 93 mg/dL 70 - 99 mg/dL [employer] Potassium [Moles/Vol] 3.6 mmol/L 3.6 - 5.1 mmol/L [facility] Sodium [Moles/Vol] 138 mmol/L 136 - 145 mmol/L [facility] [employer] Urea nitrogen [Mass/Vol] 21 mg/dL High 8 - 20 mg/dL [facility] Urea nitrogen/Creatinine [Mass ratio] 17.8 mg/mg 12.0 - 20.0 [facility] [employer] Anion gap [Moles/Vol] 5 mmol/L Low 6-18 [facility] Comment on above: Performed By: #### 6 36-1 #### [facility] [address] [place] [address] [facility] LAB [address] [place] [place] [address] Calcium [Mass/Vol] 7.6 mg/dL Low 8.9-10.3 [facility] Comment on above: Performed By: #### 6 36-1 #### [facility] [address] [place] [address] [facility] [address] [place] [address] Chloride [Moles/Vol] 109 mmol/L High 98-107 [facility] Comment on above: Performed By: #### 6 36-1 #### [facility] ([facility]) LAB [address] [place] [address] [facility] [address] [place] [address] CO2 [Moles/Vol] 24 mmol/L Normal 22-32 [facility] Comment on above: Performed By: #### 6 36-1 #### [facility] ([facility]) LAB [address] [place] [address] [facility] [address] [place] [address] Creatinine [Mass/Vol] 1.18 mg/dL Normal 0.60-1.30 [facility] Comment on above: Performed By: #### 6 36-1 #### [facility] ([facility]) LAB [address] [place] [address] [facility] [address] [place] [address] GFR/1.73 sq M.predicted among non-blacks MDRD (S/P/Bld) [Vol rate/Area] 64 mL/min/{1.73_m2} Normal >=60 [facility] Comment on above: Result Comment: Calc ulation based on the?Chronic Kidney Disease Epidemiology Collaboration (CKD-EPI) equation refit?without adjustment for race. Performed By: #### 6 36-1 #### [facility] ([facility]) LAB [address] [place] [address] [facility] [address] [place] [address] Glucose [Mass/Vol] 93 mg/dL Normal 70-99 [facility] Comment on above: Performed By: #### 6 36-1 #### [facility] [address] [place] [address] [facility] [address] [place] [address] Potassium [Moles/Vol] 3.6 mmol/L Normal 3.6-5.1 [facility] Comment on above: Performed By: #### 6 36-1 #### [facility] LAB [address] [place] [address] 58484 [facility] [address] [place] [address] Sodium [Moles/Vol] 138 mmol/L Normal 136-145 [facility] Comment on above: Performed By: #### 6 36-1 #### [facility] [address] [place] [address] 15049 [facility] [address] [place] [address] Urea nitrogen [Mass/Vol] 21 mg/dL High 8-20 [facility] Comment on above: Performed By: #### 6 36-1 #### [facility] LAB [address] [place] [address] 54180 [facility] [address] [place] [address] Urea nitrogen/Creatinine [Mass ratio] 17.8 mg/mg Normal 12.0-20.0 [facility] Comment on above: Performed By: #### 6 36-1 #### [facility] LAB [address] [place] [address] 28[address] [facility] [address] [place] [address] Hemogram and platelets WO di fferential panel [...] Basophils (Bld) [#/Vol] 0.01 10*3/uL Normal 0.00-0.20 [facility] Comment on above: Performed By: #### 6 36-1 #### [facility] ([facility]) LAB [address] [place] [address] 639[address] [facility] [address] [place] [address] Basophils/100 WBC (Bld) 0.1 % Normal 0.0-2.0 [facility] Comment on above: Performed By: #### 6 36-1 #### [facility] ([facility]) LAB [address] [place] [phone] [place] [address] [place] [address] [place] [address] Eosinophils (Bld) [#/Vol] 0.08 10*3/uL Normal 0.00-0.70 [facility] Comment on above: Performed By: #### 6 36-1 #### [facility] ([facility]) LAB [address] [place] [phone] [place] [address] [place], [place] [address] [place] [address] Eosinophils/100 WBC (Bld) 1.2 % Normal 0.0-7.0 [facility] Comment on above: Performed By: #### 6 36-1 #### [facility] ([facility]) LAB [address] [place] [phone] [place] [address] [place], [place] [address] [address] Erythrocyte distribution width (RBC) [Ratio] 13.5 % Normal 11.0-14.8 [facility] Comment on above: Performed By: #### 6 36-1 #### [facility] ([facility]) LAB [address] [place] [address] 58230 [facility] [place] [address] Hematocrit (Bld) [Volume fraction] 32.8 % Low 39.0-49.0 [facility] Comment on above: Performed By: #### 6 36-1 #### [facility] ([facility] LAB [address] [place] [address] 97933 [facility] [address] [facility] [place] [address] Hemoglobin (Bld) [Mass/Vol] 10.5 g/dL Low 13.5-17.5 [facility] Comment on above: Performed By: #### 6 36-1 #### [facility] ([facility]) LAB [address] [place] [address] 23201 [facility] LAB [address] [place] [address] Immature granulocytes (Bld) [#/Vol] 0.03 10*3/uL Normal 0.00-0.10 [facility] Comment on above: Performed By: #### 6 36-1 #### [facility] ([facility]) LAB [address] [place] [address] 56216 [facility] [place] [address] Immature granulocytes/100 WBC (Bld) 0.4 % Normal 0.0-1.2 [facility] Comment on above: Performed By: #### 6 36-1 #### [facility] ([facility]) LAB [address] [place] [address] 93209 [facility] LAB [address] [place] [address]125 Lymphocytes (Bld) [#/Vol] 1.25 10*3/uL Normal 1.00-4.80 [facility] Comment on above: Performed By: #### 6 36-1 #### [facility] ([facility]) LAB [address] [place] [address] 14964 [facility] [place] [address] Lymphocytes/100 WBC (Bld) 18.7 % Normal 17.9-49.6 [facility] Comment on above: Performed By: #### 6 36-1 #### [facility] LAB [address] [place] [address] 55458 [facility] [place] [address] MCH 30.5 pcg Normal 27.0-34.0 [facility] Comment on above: Performed By: #### 6 36-1 #### [facility] LAB [address] [place] [address] 97724 [facility] [address] [place] [address] MCHC (RBC) [Mass/Vol] 32.0 g/dL Normal 30.8-35.3 [facility] Comment on above: Performed By: #### 6 36-1 #### [facility] LAB [address] [place] [address] 39588 [facility] LAB [address] [place] [address] [place] [address] MCV (RBC) [Entitic vol] 95.3 fL Normal 80.0-97.0 [facility] Comment on above: Performed By: #### 6 36-1 #### [facility] ([facility] LAB [address] [place] [address] 87848 [facility] [address] [place], [place] [address] [address] Monocytes (Bld) [#/Vol] 0.65 10*3/uL Normal 0.00-0.90 [facility] Comment on above: Performed By: #### 6 36-1 #### [facility] LAB [address] [place] [address] 18008 [facility] LAB [address] [place] [address] [place] [address] Monocytes/100 WBC (Bld) 9.7 % Normal 0.0-12.0 [facility] Comment on above: Performed By: #### 6 36-1 #### [facility] LAB [address] [place] [address] [place] [address] [facility] [address] [place] [address] Neutrophils Absolute 4.65 K/mcL Normal 1.80-7.70 [facility] Comment on above: Performed By: #### 6 36-1 #### [facility] [address] [place] [address] 39681 [facility] [address] [place] [address] Neutrophils/100 WBC (Bld) 69.9 % Normal 38.1-75.5 [facility] Comment on above: Performed By: #### 6 36-1 #### [facility] [address] [place] [address] 18795 [facility] [place] [place] [address] Platelet mean volume (Bld) [Entitic vol] 11.4 fL Normal 6.2-12.1 [facility] Comment on above: Performed By: #### 6 36-1 #### [facility] [address] [place] [address] 15236 [facility] [place] [address] Platelets (Bld) [#/Vol] 142 10*3/uL Normal 142-424 [facility] Comment on above: Performed By: #### 6 36-1 #### [facility] [address] [place] [address] 74059 [facility] LAB [facility] [place] [address] RBC (Bld) [#/Vol] 3.44 10*6/uL Low 4.30-5.70 [facility] Comment on above: Performed By: #### 6 36-1 #### [facility] [address] [place] [address] 02647 [facility] [place] [address] WBC (Bld) [#/Vol] 6.7 10*3/uL Normal 4.6-10.2 [facility] Comment on above: Performed By: #### 6 36-1 #### [facility] LAB [address] [facility] [place] [address] [facility] [address] [place] [address] No Panel Informationon 01-08 Interpretation and review of laboratory results Abnormal [employer] Vascular US ankle brachial i ndex (GEORGETTE)on [...] left lower extremity. 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 Right GEORGETTE The ankle brachial index suggests no arterial occlusive disease. The toe brachial index is abnormal. Patient reports a history of arterial procedure to increase flow in his right leg approximately 4 months prior done in [place]. Left GEORGETTE The ankle brachial index suggests [...] are normal. Toe photoplethysmography waveforms are normal. Bronc Buster Details A doppler analysis ultrasound was performed. Pulsed wave doppler, pulsed volume recording (PVR) and photo plethysmography was performed. Overall the study quality was adequate. Unable to obtain right brachial pressure due to IV pump. CV PACS Vascular US duplex lower ext remity venous bilateralOrdered By: Lance Martin on 01-08-2023 Body surface area Derived from formula 2.17 m2 [employer] Phone: Vascular US duplex lower ext remity [...] x 0.83 cm. 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 Right Lower Venous Several prominent lymph nodes [...] the left leg. The vessels showed compressibility. Bronc Buster Details A mosley scale, color and doppler [...] damage and pain Alternatives discussed: No treatment [facility] protocol: Patient identity confirmed: Verbally with patient [...] Procedure completion: Tolerated well, no immediate complications [employer] Basic metabolic 2000 panelon 01-07-2023 Anion gap [Moles/Vol] 8 mmol/L 6 - 18 [employer] Calcium [Mass/Vol] 7.9 mg/dL Low 8.9 - 10. 3 mg/dL [facility] Chloride [Moles/Vol] 106 mmol/L 98 - 10 7 mmol/L [facility] CO2 [Moles/Vol] 25 mmol/L 22 - 32 mmol/L [facility] Creatinine [Mass/Vol] 1.79 mg/dL High 0.60 - 1.30 mg/dL [facility] GFR/1.73 sq M.predicted among non-blacks MDRD (S/P/Bld) [Vol rate/Area] 39 mL/min/{1.73_m2} Low - PINF [facility] Comment on above: Calculation based on the Chronic Kidney Disease Epidemiology Collaboration (CKD-EPI) equation refit without adjustment for race. Glucose [Mass/Vol] 146 mg/dL High 70 - 99 mg/dL [employer] Interpretation and review of laboratory results Abnormal [facility] Potassium [Moles/Vol] 3.7 mmol/L 3.6 - 5.1 mmol/L [facility] Sodium [Moles/Vol] 139 mmol/L 136 - 145 mmol/L [employer] Urea nitrogen [Mass/Vol] 29 mg/dL High 8 - 20 mg/dL [facility] Urea nitrogen/Creatinine [Mass ratio] 16.2 mg/mg 12.0 - 20.0 [facility] Anion gap [Moles/Vol] 8 mmol/L Normal 6-18 [facility] Comment on above: Performed By: #### 2 4321-2 ####[facility] [id number] [place] [address] 9[address] Calcium [Mass/Vol] 7.9 mg/dL Low 8.9-10.3 [facility] Comment on above: Performed By: #### 2 4321-2 ####[facility] [id number] [place] [address] 06398 Chloride [Moles/Vol] 106 mmol/L Normal 98-107 [facility] Comment on above: Performed By: #### 2 4321-2 ####[facility] [id number] [place] [address] 78081 CO2 [Moles/Vol] 25 mmol/L Normal 22-32 [facility] Comment on above: Performed By: #### 2 4321-2 ####[facility] [id number] [place] [address] 68873 Creatinine [Mass/Vol] 1.79 mg/dL High 0.60-1.30 [facility] Comment on above: Performed By: #### 2 4321-2 ####[facility] [id number] [place] [address] 28188 GFR/1.73 sq M.predicted among non-blacks MDRD (S/P/Bld) [Vol rate/Area] 39 mL/min/{1.73_m2} Low >=60 [facility] Comment on above: Result Comment: Calc ulation based on the?Chronic Kidney Disease Epidemiology Collaboration (CKD-EPI) equation refit?without adjustment for race. Performed By: #### 2 4321-2 ####[facility] [id number] [place] [address] Glucose [Mass/Vol] 146 mg/dL High 70-99 [facility] Comment on above: Performed By: #### 2 4321-2 ####[facility] [id number] [place] [address] Potassium [Moles/Vol] 3.7 mmol/L Normal 3.6-5.1 [facility] Comment on above: Performed By: #### 2 4321-2 ####[facility] [id number] [place] [address]141 Sodium [Moles/Vol] 139 mmol/L Normal 136-145 [facility] Comment on above: Performed By: #### 2 4321-2 ####[facility] [id number] [place] [address] 39645 Urea nitrogen [Mass/Vol] 29 mg/dL High 8-20 [facility] Comment on above: Performed By: #### 2 4321-2 ####[facility] [id number] [place] [address] 04627 Urea nitrogen/Creatinine [Mass ratio] 16.2 mg/mg Normal 12.0-20.0 [facility] Comment on above: Performed By: #### 2 4321-2 ####[facility] [id number] [place] [address] 15278 Cell count panel (Body fld)O rdered By: Miguelina Vogel on 01-07-2023 Clarity (Body fld) Hazy [employer] Comment on above: Some small clots pre sent, very viscous. Clots present in specimen. Count may be affected. Color (Body fld) Yellow [facility] RBC Auto (Body fld) [#/Vol] 430 /mm3 [facility] Comment on above: The reference range and other method performance specifications have not been established for this fluid specimen. The test result should be integrated into the clinical context for interpretation. Specimen source Nom (Body fld) Knee [employer] Comment on above: Right WBC (Body fld) [#/Vol] 32 /mm3 Tr [employer] Comment on above: The reference range and other method performance specifications have not been established for this fluid specimen. The test result should be integrated into the clinical context for interpretation. [facility] Crystals LM Nom (Body fld)on 01-07-2023 Crystals LM Nom (Syn fld) Absent Absent [facility] Interpretation and review of laboratory results Normal [employer] Differential panel (Body fld )on 01-07-2023 Lymphocytes/100 WBC Manual cnt (Body fld) 19.0 % [facility] Mesothelial cells/100 WBC Manual cnt (Body fld) 2.0 % [facility] Monocytes+Macrophages/ 100 WBC (Body fld) 72.0 % [facility] Neutrophils/100 WBC (Body fld) 7.0 % [employer] Glucose, body fluidon 2022 Glucose (Body fld) [Mass/Vol] 134 mg/dL [facility] Hemogram and platelets WO di fferential panel (Bld)on 01-07-2023 Basophils (Bld) [#/Vol] 0.01 10*3/uL [facility] Basophils/100 WBC (Bld) 0.1 % 0.0 - 2.0 % [facility] Eosinophils (Bld) [#/Vol] 0.04 10*3/uL [facility] Eosinophils/100 WBC (Bld) 0.5 % 0.0 - 7.0 % [employer] Erythrocyte distribution width (RBC) [Ratio] 13.6 % 11.0 - 14.8 % [employer] Hematocrit (Bld) [Volume fraction] 34.7 % Low 39.0 - 49.0 % [facility] Hemoglobin (Bld) [Mass/Vol] 11.1 g/dL Low 13.5 - 17.5 g/dL [facility] Immature granulocytes (Bld) [#/Vol] 0.02 10*3/uL [facility] Immature granulocytes/100 WBC (Bld) 0.3 % 0.0 - 1.2 % [facility] Interpretation and review of laboratory results Abnormal [facility] Lymphocytes (Bld) [#/Vol] 1.70 10*3/uL [facility] Lymphocytes/100 WBC (Bld) 23.3 % 17.9 - [...] Basophils (Bld) [#/Vol] 0.01 10*3/uL Normal 0.00-0.20 [facility] Comment on above: Performed By: #### 6 36-1 #### [facility] ([facility]) LAB [address] [place] [address] 02585 [facility] [place] [address] Basophils/100 WBC (Bld) 0.1 % Normal 0.0-2.0 [facility] Comment on above: Performed By: #### 6 36-1 #### [facility] LAB [address] [place] [address] [facility] [place] [address] Eosinophils (Bld) [#/Vol] 0.04 10*3/uL Normal 0.00-0.70 [facility] Comment on above: Performed By: #### 6 36-1 #### [facility] ([facility]) LAB [address] [place] [address] 91035 [facility] [place] [address] Eosinophils/100 WBC (Bld) 0.5 % Normal 0.0-7.0 [facility] Comment on above: Performed By: #### 6 36-1 #### [facility] ([facility]) LAB [address] [place] [address] 24731 [facility] LAB [address] [place], [place] [address] [place] [address] Erythrocyte distribution width (RBC) [Ratio] 13.6 % Normal 11.0-14.8 [facility] Comment on above: Performed By: #### 6 36-1 #### [facility] ([facility]) LAB [address] [place] [phone] [place] [address] [place], [place] [address] [address] Hematocrit (Bld) [Volume fraction] 34.7 % Low 39.0-49.0 [facility] Comment on above: Performed By: #### 6 36-1 #### [facility] ([facility]) LAB [address] [place] [phone] [place] [address] [place] [address] [place] [address] Hemoglobin (Bld) [Mass/Vol] 11.1 g/dL Low 13.5-17.5 [facility] Comment on above: Performed By: #### 6 36-1 #### [facility] ([facility]) LAB [address] [place] [address] 70796 [facility] LAB [address] [place], [place] [address] [address] Immature granulocytes (Bld) [#/Vol] 0.02 10*3/uL Normal 0.00-0.10 [facility] Comment on above: Performed By: #### 6 36-1 #### [facility] ([facility]) LAB [address] [place] [phone] [place] [address] [place] [address] [place] [address] Immature granulocytes/100 WBC (Bld) 0.3 % Normal 0.0-1.2 [facility] Comment on above: Performed By: #### 6 36-1 #### [facility] LAB [address] [place] [address] 22012 [facility] LAB [facility] [place] [address] Lymphocytes (Bld) [#/Vol] 1.70 10*3/uL Normal 1.00-4.80 [facility] Comment on above: Performed By: #### 6 36-1 #### [facility] LAB [address] [place] [address] 74408 [facility] LAB [address] [place] [address] [place] [address] Lymphocytes/100 WBC (Bld) 23.3 % Normal 17.9-49.6 [facility] Comment on above: Performed By: #### 6 36-1 #### [facility] LAB [address] [place] [address] 25316 [facility] LAB [address] [place] [address] [place] [address] MCH 30.4 pcg Normal 27.0-34.0 [facility] Comment on above: Performed By: #### 6 36-1 #### [facility] LAB [address] [place] [address] 59977 [facility] LAB [facility] [place] [address] MCHC (RBC) [Mass/Vol] 32.0 g/dL Normal 30.8-35.3 [facility] Comment on above: Performed By: #### 6 36-1 #### [facility] LAB [address] [place] [address] 17237 [facility] LAB [address] [place] [address] [place] [address] MCV (RBC) [Entitic vol] 95.1 fL Normal 80.0-97.0 [facility] Comment on above: Performed By: #### 6 36-1 #### [facility] ([facility]) LAB [address] [place] [address] 72458 [facility] LAB [address] [place] [address] 94981 Monocytes (Bld) [#/Vol] 0.66 10*3/uL Normal 0.00-0.90 [facility] Comment on above: Performed By: #### 6 36-1 #### [facility] ([facility]) LAB [address] [place] [address] 48546 [facility] LAB [address] [place] [address] 32476 Monocytes/100 WBC (Bld) 9.0 % Normal 0.0-12.0 [facility] Comment on above: Performed By: #### 6 36-1 #### [facility] ([facility]) LAB [address] [place] [phone] [place] [address] [place] [address] 83117 Neutrophils Absolute 4.88 K/mcL Normal 1.80-7.70 [facility] Comment on above: Performed By: #### 6 36-1 #### [facility] ([facility]) LAB [address] [place] [phone] [place] [address] [place] [address]74 Neutrophils/100 WBC (Bld) 66.8 % Normal 38.1-75.5 [facility] Comment on above: Performed By: #### 6 36-1 #### [facility] ([facility]) LAB [address] [place] [phone] [place] [address] [place] [address] 51310 Platelet mean volume (Bld) [Entitic vol] 11.1 fL Normal 6.2-12.1 [facility] Comment on above: Performed By: #### 6 36-1 #### [facility] [place] [facility] LAB [address] [place] [address] 57264 [facility] LAB [address] [place] [address] Platelets (Bld) [#/Vol] 127 10*3/uL Low 142-424 [facility] Comment on above: Performed By: #### 6 36-1 #### [facility] [place] [facility] LAB [address] [place] [phone] [place] [address] [address] [place] [address] RBC (Bld) [#/Vol] 3.65 10*6/uL Low 4.30-5.70 [facility] Comment on above: Performed By: #### 6 36-1 #### [facility] LAB [address] [place] [address] 58224 [facility] LAB [address] [place] [address] WBC (Bld) [#/Vol] 7.3 10*3/uL Normal 4.6-10.2 [facility] Comment on above: Performed By: #### 6 36-1 #### [facility] ([facility] [address] [place] [id number] [facility] [place] [address] MR FOOT WO AND W CONTRAST JOLENE [...] Self Edit Transcribed Date: 01/07/2023 09:44 Normal [facility] MR Foot wo and w [...] portions of the foot, most pronounced dorsally. [employer] Polo Casanova MD - 01/07/2023 MRI OF [...] By: Self Edit Transcribed Date: 01/07/2023 09:44 [facility] Radiology Study observation (narrative) [facility] MR Marlen peraza and w Contrast Ri ghtOrdered By: Polo Casanova on 01-07-2023 [place] [employer] Work Phone: No Panel Informationon 01-07 [facility] Protein, body fluidon 2022 Protein (Body fld) [Mass/Vol] g/dL g/dL [facility] VAS US ANKLE BRACHIAL INDEXo n 01-07-2023 [...] 112 1.07 0.94 0.68 0.65 2.17 Normal [facility] Bacteria Bld Culton 01-07-20 23 Bacteria identified Cx Nom (Bld) Culture, Blood Status = F No growth at 5 days Normal [facility] Comment on above: Performed By: #### 6 00-7 #### [facility] ([facility] [address] [place] [address] Bacteria identified Cx Nom (Bld) Culture, Blood Status = F No growth at 5 days Normal [facility] Comment on above: Performed By: #### 6 00-7 #### [facility] ([facility] [address] [place] [address] Bacteria Spec BFld Culton Bacteria identified Sterile body fluid culture Nom (Unsp spec) Fluid Culture Status = F No growth at 2 days Gram Stain Result Status = F Few Polymorphonuclear leukocytes No Epithelial cells No organisms seen Normal [facility] Comment on above: Performed By: #### 6 36-1 #### [facility] ([facility]) LAB [address] [place] [address] [facility] ([facility] [address] [place] [address] Basic metabolic 2000 panelon 01-06-2023 Anion gap [Moles/Vol] 7 mmol/L 6 - 18 POP Properties Calcium [Mass/Vol] 8.6 mg/dL Low 8.9 - 10. 3 mg/dL [facility] Chloride [Moles/Vol] 100 mmol/L 98 - 10 7 mmol/L [facility] CO2 [Moles/Vol] 27 mmol/L 22 - 32 mmol/L [facility] Creatinine [Mass/Vol] 1.26 mg/dL 0.60 - 1.30 mg/dL [facility] GFR/1.73 sq M.predicted among non-blacks MDRD (S/P/Bld) [Vol rate/Area] 59 mL/min/{1.73_m2} Low - PINF [facility] Comment on above: Calculation based on the Chronic Kidney Disease Epidemiology Collaboration (CKD-EPI) equation refit without adjustment for race. Glucose [Mass/Vol] 115 mg/dL High 70 - 99 mg/dL POP [facility] Interpretation and review of laboratory results Abnormal [facility] Potassium [Moles/Vol] 4.1 mmol/L 3.6 - 5.1 mmol/L [facility] Sodium [Moles/Vol] 134 mmol/L Low 136 - 145 mmol/L [facility] Urea nitrogen [Mass/Vol] 17 mg/dL 8 - 20 mg/dL [facility] Urea nitrogen/Creatinine [Mass ratio] 13.5 mg/mg 12.0 - 20.0 [employer] C-Reactive Protein 32.6 mg/dL High 0.0-1.0 [facility] Comment on above: Performed By: #### 2 4321-2 ####[facility] ([facility] [id number] [place] [address] C-reactive proteinon 023 CRP [Mass/Vol] 32.6 mg/dL High 0.0 - 1.0 mg/dL [facility] CRP [Mass/Vol]on 01-06-2023 Interpretation and review of laboratory results Abnormal [facility] Cell count panel (Body fld)o n 01-06-2023 Fluid Lymphocytes 19.0 % Normal [facility] Comment on above: Performed By: #### 6 00-7 #### [facility] [place] ([facility] [address] [place] [address] Fluid Mesothelial Cells 2.0 % Normal [facility] Comment on above: Performed By: #### 6 00-7 #### [facility] [place] ([facility] [address] [place] [address] Fluid Monocytes/Macrophages 72.0 % Normal [facility] Comment on above: Performed By: #### 6 00-7 #### [facility] [place] ([facility] [address] [place] [address] Fluid Neutrophils 7.0 % Normal [facility] Comment on above: Performed By: #### 6 00-7 #### [facility] [place] ([facility] [address] [place] [address] Crystals LM Nom (Body fld)on 01-06-2023 Crystals, Fluid Absent Normal Absent [facility] Comment on above: Performed By: #### 6 825-4 ####[facility] [id number] [place] [id number] ESR (Bld) [Velocity]on 01-06 Interpretation and review of laboratory results Abnormal [facility] Glucose (Body fld) [Mass/Vol ]on 01-06-2023 Protein, Fluid <3.0 Normal [facility] Comment on above: Performed By: #### 2 344-0 ####[facility] [id number] [place] [address] Hemogram and platelets WO di fferential panel (Bld)on 01-06-2023 Basophils (Bld) [#/Vol] 0.01 10*3/uL [facility] Basophils/100 WBC (Bld) 0.1 % 0.0 - [...] Health Sed Rate 104 mm/hr High 0-15 [facility] Comment on above: Performed By: #### 6 00-7 #### [facility] ([facility]) [facility] [address] [place] [address] Lactate (Bld) [Mass/Vol]on 03-08-2022 Interpretation and review of laboratory results Normal [facility] Lactate [Moles/Vol] 1.1 mmol/L 0.5 - 2. 0 mmol/L [facility] Lactate [Moles/Vol] 1.1 mmol/L Normal 0.5-2.0 [facility] Comment on above: Performed By: #### 6 36-1 #### [facility] ([facility] [address] [place] [address] [facility] ([facility] [address] [place] [address] Sedimentation Rate, Automate don 01-06-2023 ESR (Bld) [Velocity] 104 mm/h High [facility] VAS US DUPLEX LOWER EXT VENO US [...] x 1.42 x 0.83 cm. 2.17 Normal [facility] XR FOOT 3+ VIEWS RIGHTon [...] Self Edit Transcribed Date: 01/06/2023 20:07 Normal [facility] XR Foot 3+ Views Righton [...] By: Self Edit Transcribed Date: 01/06/2023 20:07 [employer] EXAMINATION TYPE: XR FOOT 3+ VIEWS RIGHT [...] By: Self Edit Transcribed Date: 01/06/2023 20:07 [facility] Study observation (narrative) [facility] XR Foot 3+ Views RightOrdere d By: Madhu Blackwell on 01-06-2023 [facility] Work Phone: XR KNEE 4+ VIEWS RIGHTon [...] Self Edit Transcribed Date: 01/06/2023 21:40 Normal [facility] XR Knee 4+ Views Righton [...] By: Self Edit Transcribed Date: 01/06/2023 21:40 [employer] EXAMINATION TYPE: XR KNEE 4+ VIEWS RIGHT [...] By: Self Edit Transcribed Date: 01/06/2023 21:40 [facility] Radiology Study observation (narrative) [facility] XR Knee 4+ Views RightOrdere d By: Reyes Dixon on 01-06-2023 [facility] Work Phone: No Panel Informationon 01-05 1. [...] By: Self Edit Transcribed Date: 01/05/2023 18:48 [facility] Radiology Study observation (narrative) [facility] [employer] [facility] No Panel InformationOrdered By: Jorge Martin on 01-05-2023 [facility] Work Phone: XR ELBOW 3+ VIEWS RIGHTon [...] Self Edit Transcribed Date: 01/05/2023 18:48 Normal [facility] XR KNEE 4+ VIEWS RIGHTon [...] Self Edit Transcribed Date: 01/05/2023 18:48 Normal [facility] Bacteria identifiedon 2022 Bacteria identified Cx Nom (Unsp spec) Test: Tissue/Wound Culture/Smear Specimen Source: Skin Lesion Specimen Type: Tissue/Biopsy Specimen Date: 12/21/2022 11:32 AM Result Date: 12/23/2022 12:09 PM Result Status: Final result Abnormal: Yes Resulting Lab: [facility] [address] [place] [address] CULTURE (4+) Abundant Methicillin Susceptible Staphylococcus aureus [...] Susceptible -- Susceptible VANCOMYCIN -- Susceptible Abnormal [facility] Comment on above: Performed By: #### 6 463-4 #### ABISAI Gaspar ([id number]) [facility] ([facility]) [address] [place] [address] XR ANKLE LEFT 3+ VIEWS (JOS FLEMING)on [...] acute osseous abnormality. Small tibiotalar joint effusion. [employer] Workstation ID: [id number] Dictated by: ANGELICA PASCUAL on SunFeb 08, 2022 12:31:31 PM EST Transcribed by: JESUS GONZALES on SunFeb 08, 2022 12:56:08 PM EST Finalized by: ANGELICA PASCUAL on SunFeb 13, 2022 2:16:58 PM EST Normal [facility] Comment on above: Order Comment: Injur y/Trauma or Illness?:Injury/Trauma How long have you had these symptoms (acute/chronic)?:Acute Reason for exam?:Ankle pain History of cancer?:no Surgeries, chemotherapy, or radiation?:no Type of Exam?:Initial Mechanism of injury?:Swelling and pain. No known injury Vital Signs Date Time Vital Sign Value Performing Clinician Facility 11-12-2024 08:48-0400 Body temperature 97.8 [degF] Dr. Rey Greenwood MD Work Phone: [facility] 11-12-2024 08:48-0400 Diastolic blood pressure 95 mm[Hg] Dr. Rey Greenwood MD Work Phone: [facility] 11-12-2024 08:48-0400 Heart rate 59 /min Dr. Rey Greenwood MD Work Phone: [facility] 11-12-2024 08:48-0400 Respiratory rate 14 /min Dr. Rey Greenwood MD Work Phone: [facility] 11-12-2024 08:48-0400 Systolic blood pressure 178 mm[Hg] Dr. Rey Greenwood MD Work Phone: [facility] 11-05-2024 08:22-0400 Body mass index (BMI) [Ratio] 30.1 kg/m2 Dr. Rey Greenwood MD Work Phone: [facility] 11-05-2024 08:22-0400 Body temperature 97.8 [degF] Dr. Rey Greenwood MD Work Phone: [facility] 11-05-2024 08:22-0400 Diastolic blood pressure 112 mm[Hg] Dr. Rey Greenwood MD Work Phone: [facility] 11-05-2024 08:22-0400 Heart rate 79 /min Dr. Rey Greenwood MD Work Phone: [facility] 11-05-2024 08:22-0400 Respiratory rate 15 /min Dr. Rey Greenwood MD Work Phone: [facility] 11-05-2024 08:22-0400 Systolic blood pressure 185 mm[Hg] Dr. Rey Greenwood MD Work Phone: [facility] 10-15-2024 13:57-0400 Body height 177.[address] Rey Greenwood MD Work Phone: [facility] 10-15-2024 13:57-0400 Body weight 95.[address] Rey Greenwood MD Work Phone: [facility] 11-20-2023 14:35-0400 Body mass index (BMI) [Ratio] 26.67 kg/m2 Nallely Lyonsyaquelin Work Phone: [place] [facility] 11-20-2023 14:35-0400 Body weight 84.32 kg Nallely Lyonsyaquelin Work Phone: [facility] 11-20-2023 14:35-0400 Diastolic blood pressure 67 mm[Hg] Nallely Benavidez Work Phone: [facility] 11-20-2023 14:35-0400 Heart rate 54 /min Nallely Serenayaquelin Work Phone: [facility] 11-20-2023 14:35-0400 Respiratory rate 12 /min Nallely Serenayaquelin Work Phone: [facility] [employer] [facility] 11-20-2023 14:35-0400 SaO2% (BldA) [Mass fraction] 95 % Nallely Serenayaquelin Work Phone: [facility] [facility] 11-20-2023 14:35-0400 Systolic blood pressure 135 mm[Hg] Nallely Benavidez Work Phone: [facility] 11-13-2023 11:59-0400 Body temperature 97.5 [degF] Morgan Grover MD Work Phone: [facility] 11-13-2023 11:59-0400 Diastolic blood pressure 70 mm[Hg] Morgan Grover MD Work Phone: [facility] 11-13-2023 11:59-0400 Heart rate 65 /min Morgan Grover MD Work Phone: [facility] 11-13-2023 11:59-0400 Respiratory rate 16 /min Morgan Grover MD Work Phone: [facility] 11-13-2023 11:59-0400 SaO2% (BldA) [Mass fraction] 92 % Morgan Grover MD Work Phone: [facility] 11-13-2023 11:59-0400 Systolic blood pressure 125 mm[Hg] Morgan Grover MD Work Phone: [facility] 11-13-2023 05:06-0400 Body mass index (BMI) [Ratio] 31.32 kg/m2 Morgan Grover MD Work Phone: [facility] 11-13-2023 05:06-0400 Body weight 99 kg Morgan Grover MD Work Phone: [facility] 11-10-2023 07:45-0400 Body height 177.8 cm Morgan Grover MD Work Phone: [facility] 01-09-2023 11:30-0500 Body temperature 97.9 [degF] Jamal Dan MD Work Phone: [facility] 01-09-2023 11:30-0500 Diastolic blood pressure 69 mm[Hg] Jamal Dan MD Work Phone: [facility] 01-09-2023 11:30-0500 Heart rate 58 /min Jamal Dan MD Work Phone: [facility] 01-09-2023 11:30-0500 SaO2% (BldA) [Mass fraction] 92 % Jamal Dan MD Work Phone: [facility] 01-09-2023 11:30-0500 Systolic blood pressure 145 mm[Hg] Jamal Dan MD Work Phone: [facility] 01-09-2023 05:41-0500 Respiratory rate 18 /min Jamal Dan MD Work Phone: [facility] 01-07-2023 14:10-0500 Body height 177.8 cm Jamal Dan MD Work Phone: [facility] 01-07-2023 14:10-0500 Body mass index (BMI) [Ratio] 30.39 kg/m2 Jamal Dan MD Work Phone: [facility] 01-07-2023 14:10-0500 Body weight 96.07 kg Jamal Dan MD Work Phone: [facility] 01-05-2023 18:43-0500 Body temperature 100 [degF] Morgan Grover MD Work Phone: [facility] 01-05-2023 17:47-0500 Diastolic blood pressure 87 mm[Hg] Morgan Grover MD Work Phone: [facility] 01-05-2023 17:47-0500 Heart rate 80 /min Morgan Grover MD Work Phone: [facility] 01-05-2023 17:47-0500 Respiratory rate 18 /min Morgan Grover MD Work Phone: [facility] 01-05-2023 17:47-0500 SaO2% (BldA) [Mass fraction] 96 % Morgan Grover MD Work Phone: [facility] 01-05-2023 17:47-0500 Systolic blood pressure 190 mm[Hg] Morgan Grover MD Work Phone: [facility] 01-05-2023 17:45-0500 Body height 177.8 cm Morgan Grover MD Work Phone: [facility] 01-05-2023 17:45-0500 Body mass index (BMI) [Ratio] 30.13 kg/m2 Morgan Grover MD Work Phone: [facility] 01-05-2023 17:45-0500 Body weight 95.25 kg Morgan Grover MD Work Phone: [facility] 01-03-2023 10:21-0500 Body height 177.8 cm [facility] 01-03-2023 10:21-0500 Body mass index (BMI) [Ratio] 30.1 kg/m2 [facility] 01-03-2023 10:21-0500 Body temperature 97 [degF] [facility] 01-03-2023 10:21-0500 Body weight 95.25 kg [facility] 01-03-2023 10:21-0500 Diastolic blood pressure 96 mm[Hg] [facility] 01-03-2023 10:21-0500 Heart rate 63 /min [facility] 01-03-2023 10:21-0500 Respiratory rate 16 /min [facility] 01-03-2023 10:21-0500 Systolic blood pressure 150 mm[Hg] [facility] 12-21-2022 10:58-0500 Body height 177.8 cm Matt Mallory PRIVACY ANALYST-ASSISTANT HAIRSTYLIST Work Phone: [facility] 12-21-2022 10:58-0500 Body mass index (BMI) [Ratio] 29.41 kg/m2 Matt Mallory PRIVACY ANALYST-ASSISTANT HAIRSTYLIST Work Phone: [facility] 12-21-2022 10:58-0500 Body temperature 97.81 [degF] Matt Mallory PRIVACY ANALYST-ASSISTANT HAIRSTYLIST Work Phone: [facility] 12-21-2022 10:58-0500 Body weight 92.99 kg Matt Mallory PRIVACY ANALYST-ASSISTANT HAIRSTYLIST Work Phone: [facility] 12-21-2022 10:58-0500 Diastolic blood pressure 89 mm[Hg] Matt Mallory PRIVACY ANALYST-ASSISTANT HAIRSTYLIST Work Phone: [facility] 12-21-2022 10:58-0500 Heart rate 54 /min Matt Mallory PRIVACY ANALYST-ASSISTANT HAIRSTYLIST Work Phone: [facility] 12-21-2022 10:58-0500 Respiratory rate 16 /min Matt Mallory PRIVACY ANALYST-ASSISTANT HAIRSTYLIST Work Phone: [facility] 12-21-2022 10:58-0500 SaO2% (BldA) [Mass fraction] 95 % Matt Mallory PRIVACY ANALYST-ASSISTANT HAIRSTYLIST Work Phone: [facility] 12-21-2022 10:58-0500 Systolic blood pressure 173 mm[Hg] Matt Mallory PRIVACY ANALYST-ASSISTANT HAIRSTYLIST Work Phone: [facility] 02-08-2022 11:26-0500 Body temperature 98.01 [degF] Sabrina Breece PA-C Work Phone: [facility] 02-08-2022 11:26-0500 Body weight 97.52 kg Sabrina Breece PA-C Work Phone: [facility] 02-08-2022 11:26-0500 Diastolic blood pressure 83 mm[Hg] Sabrina Breece PA-C Work Phone: [facility] 02-08-2022 11:26-0500 Heart rate 56 /min Sabrina Breece PA-C Work Phone: [facility] 02-08-2022 11:26-0500 Respiratory rate 16 /min Sabrina Breece PA-C Work Phone: [facility] 02-08-2022 11:26-0500 SaO2% (BldA) [Mass fraction] 95 % Sabrina Breece PA-C Work Phone: [facility] 02-08-2022 11:26-0500 Systolic blood pressure 136 mm[Hg] Sabrina Breece PA-C Work Phone: [facility] Encounters Encounter Date Encounter Type Care Provider Facility Start: 11-26-2024 End: 11-26-2024 ambulatory Rey Chi Timo Facility:[facility] Start: 11-12-2024 Registered Recurring [...] Start: 10-23-2024 End: 10-23-2024 ambulatory Rey Greenwood Facility:[facility] Start: 10-21-2024 Non-patient / Non-visit [facility]. Manolo NI -[facility] Start: 11-20-2023 End: 11-20-2023 Office outpatient new 45 minutes Nallely Benavidez Work Phone: [facility] [employer] [facility] [employer] [facility] Comment on above: Acute congestive hea rt failure, unspecified heart failure type (CMS/HCC) (Primary Dx); Coronary artery disease involving sitka coronary artery of sitka heart without angina pectoris; Cellulitis of right lower leg; Hyperlipidemia, unspecified hyperlipidemia type; Peripheral arterial disease with history of revascularization (CMS/HCC); Ischemic cardiomyopathy; Left anterior fascicular block (LAFB) Start: 11-20-2023 End: 11-20-2023 Patient encounter procedure Nallely Benavidez Work Phone: [facility] [employer] [facility] [employer] [facility] Start: 11-20-2023 End: 11-20-2023 ambulatory ALISIA~[id number] ERI CRUMP [facility] Start: 11-09-2023 End: 11-13-2023 Evaluation and management of inpatient ALISIA~[id number] ERI CRUMP [facility] Start: 11-08-2023 End: 11-13-2023 Evaluation and management of inpatient Morgan Grover MD Work Phone: [facility] Comment on above: Acute congestive hea rt failure, unspecified heart failure type (CMS/HCC) (Primary Dx); Osteomyelitis, unspecified site, unspecified type (CMS/HCC); Osteomyelitis of foot, left, acute (CMS/HCC) Start: 10-30-2023 End: 10-30-2023 ambulatory Facility:[facility] Start: 10-30-2023 End: 10-30-2023 Patient encounter procedure Aakash Morrisporterdeangelo KEYSHA Work Phone: [facility] Comment on above: Injury of left great toe, initial encounter (Primary Dx) Start: 01-06-2023 End: 01-09-2023 Evaluation and management of inpatient PRASHANTH MARTINEZ [facility] Start: 01-06-2023 End: 01-09-2023 Evaluation and management of inpatient Jamal Dan MD Work Phone: [facility] Comment on above: Cellulitis of right lower leg (Primary Dx); Effusion, right knee; Ulcer of foot, chronic, right, with unspecified severity (CMS/HCC) Start: 01-05-2023 End: 01-05-2023 Emergency department patient visit Morgan Grover MD Work Phone: [facility] Emergency Room Comment on above: Acute pain of right knee (Primary Dx); Right elbow pain; Ulcer of right foot, limited to breakdown of skin (CMS/HCC); Cellulitis of right leg Start: 01-05-2023 End: 01-05-2023 Evaluation and management of inpatient Morgan Grover MD Work Phone: [facility] Emergency Room Start: 01-03-2023 End: 01-11-2023 ambulatory [facility] Work Phone: Start: 01-03-2023 End: 01-11-2023 Discharged Recurring [facility] Work Phone: Start: 12-21-2022 End: 12-21-2022 ambulatory MATT MALLORY [facility] Start: 12-21-2022 End: 12-21-2022 Office outpatient visit 15 minutes Matt Mallory PRIVACY ANALYST-ASSISTANT HAIRSTYLIST Work Phone: [facility] Comment on above: Wound of right foot (Primary Dx) Start: 02-08-2022 End: 02-09-2022 ambulatory PHYSICIAN [facility] Start: 02-08-2022 End: 02-08-2022 Office outpatient visit 15 minutes Sabrina MORALESC Work Phone: [facility] Comment on above: Acute left ankle jj [...] HCV Quant by PCR testing - HCVPCR #[id number] Non Reactive: < 0.8 Equivocal: >/= 0.8 [...] ecg w/le ast 12 lds w/i&r Nallely Benaivdez Work Phone: Start: 11-13-2023 Basic metabolic pane l calcium total Detta Veronica SALES REPRESENTATIVE [employer] Work Phone: Start: 11-12-2023 PEP THERAPY Saadri Car hid DO Work Phone: Start: 11-12-2023 Radiologic exam ches t single view Detta Veronica SALES REPRESENTATIVE [employer] Work Phone: Start: 11-12-2023 Basic metabolic pane l calcium total Saadri Bailey DO Work Phone: Start: 11-12-2023 Assay of troponin quantitative Detta Veronica SALES REPRESENTATIVE [employer] Work Phone: Start: 11-11-2023 Assay of troponin quantitative Detta Veronica SALES REPRESENTATIVE [employer] Work Phone: Start: 11-11-2023 Cyanocobalamin vitam in b-12 Tramaine Perez DO Work Phone: Start: 11-11-2023 Blood count complete automated Sabrina Bailey DO Work Phone: Start: 11-10-2023 Assay of troponin quantitative Detta Veronica SALES REPRESENTATIVE [employer] Work Phone: Start: 11-10-2023 End: 11-10-2023 Cul [...] std extremity art 2 level Detta Veronica SALES REPRESENTATIVE [employer] Work Phone: Start: 11-09-2023 Assay of magnesium Dett a Veronica SALES REPRESENTATIVE [employer] Work Phone: Start: 11-09-2023 Ecg routine ecg w/le ast 12 lds trcg only w/o i&r Saadri Bailey DO Work Phone: Start: 11-09-2023 Mri lower extrem oth /thn jt w/o & w/contr matr Detta Veronica SALES REPRESENTATIVE [employer] Work Phone: Start: 11-09-2023 Antibody screen TERENCE Ortega~[id number] ERI CRUMP Comment on above: Performed By: #### 6 36-1 #### [facility] ([facility] [address] [address] [facility] [address] [place] [address] Start: 11-09-2023 Antibody screen rbc each serum [...] xtr veins complete bilateral study Prashanth Martinez [employer] Work Phone: Start: 01-07-2023 Mri lower extrem [...] Author Start: 01-09-2026 Diabetes Screening Diabetes Screening [facility] Start: 12-19-2024 ambulatory Ambulatory Facility:[facility] Start: 11-12-2024 Falls Risk Assessment Falls Risk Assessment [facility] Start: 11-12-2024 Hypertension/CHF/CAD Annual BMP Blood Test Hypertension/CHF/CAD Annual BMP Blood Test [facility] Start: 11-09-2024 Social Influencers of Health Screening [employer] [facility] Screening [facility] Start: 11-05-2024 Registered Recurring Acute painful diabetic polyneuropathy [facility] Work Phone: Start: 01-10-2024 Falls Risk Assessment Falls Risk Assessment [facility] Start: 01-10-2024 Hypertension/CHF/CAD Annual BMP Blood Test Hypertension/CHF/CAD Annual BMP Blood Test [facility] Start: 01-08-2024 Social Influencers of Health Screening [employer] Health Screening [facility] Start: 11-20-2023 End: 11-20-2023 Patient encounter procedure 11/20/2023 3:00 PM EDT Office Visit [facility]y [facility] [employer] [facility] [employer] [address] [facility] [address] [place] [address] Nallely Benavidez [address] [facility] [address] [place] [address] [facility] [employer] [facility] [employer] Start: 10-14-2023 Covid-19 Vaccine ( season) Covid-19 Vaccine ( season) [facility] Start: 10-14-2023 Influenza vaccination Influenza Vaccine (#1) [facility] Start: 02-12-2023 Advance Directive Discussion Advance Directive Discussion [facility] Start: 01-05-2023 Abdominal aortic aneurysm screening Abdominal Aortic Aneurysm (AAA) Screen [facility] Start: 01-05-2023 Adolescent depression screening assessment Depression Screening [facility] Start: 01-05-2023 Falls Risk Assessment Falls Risk Assessment [facility] Start: 01-05-2023 Hepatitis C screening Hepatitis C Screening [facility] Start: 01-05-2023 Hypertension/CHF/CAD Annual BMP Blood Test Hypertension/CHF/CAD Annual BMP Blood Test [facility] Start: 01-05-2023 Lipid panel Cholesterol Screening (Lipid Panel) [facility] Start: 01-05-2023 Medicare Annual Wellness Visit Medicare Annual Wellness Visit [facility] Start: 01-05-2023 Screening for malignant neoplasm of colon Colorectal Cancer Screening: Colonoscopy [facility] Start: 01-05-2023 Social Influencers of Health Screening Social Influencers of Health Screening [facility] Start: 10-13-2022 Influenza vaccination Influenza Vaccine (#1) [facility] Start: 10-13-2021 Influenza vaccination Sequential Influenza Vaccine (#1) [facility] Start: 04-26-2018 Pneumococcal Vaccine: Age 65+ (2 - PPSV23 if available, else PCV20) Pneumococcal Vaccine: Age 65+ (2 - PPSV23 if available, else PCV20) [facility] Start: 06-21-2017 Pneumococcal Vaccine: 65+ Years (2 - PPSV23 or PCV20) Pneumococcal Vaccine: 65+ Years (2 - PPSV23 or PCV20) [facility] Start: 06-21-2017 Pneumococcal Vaccine: 65+ Years (2 of 2 - PPSV23 or PCV20) Pneumococcal Vaccine: 65+ Years (2 of 2 - PPSV23 or PCV20) [facility] Start: 06-18-2012 Fall risk assessment Falls Risk Assessment [facility] Start: 06-18-2012 Pneumococcal Vaccine: 65+ (1 of 1 - PCV) Pneumococcal Vaccine: 65+ (1 of 1 - PCV) [facility] Start: 06-18-2012 Pneumococcal Vaccine: 65+ Years (1 - PCV) Pneumococcal Vaccine: 65+ Years (1 - PCV) [facility] Start: 2007 RSV Immunization Patients 60+ Years Old (1 - 1-dose 60+ series) RSV Immunization Patients 60+ Years Old (1 - 1-dose 60+ series) [facility] Start: 2007 RSV Vaccine (1 - 1-dose 60+ series) RSV Vaccine (1 - 1-dose 60+ series) [facility] Start: 06-18-1997 Administration of herpes zoster vaccine Zoster Vaccines (1 of 2) [facility] Start: 06-18-1997 Screening for malignant neoplasm of colon Flexible sigmoidoscopy [facility] Start: 06-18-1997 Shingrix Vaccine (1 of 2) Shingrix Vaccine (1 of 2) [facility] Start: 06-18-1997 Zoster Vaccines (1 of 2) Zoster Vaccines (1 of 2) [facility] Start: 06-18-1969 DTaP/Tdap/Td Vaccines (1 - Tdap) DTaP/Tdap/Td Vaccines (1 - Tdap) [facility] Start: 06-18-1966 DTaP,Tdap,and Td Vaccines (1 - Tdap) DTaP,Tdap,and Td Vaccines (1 - Tdap) [facility] Start: 06-18-1966 Urine microalbumin profile DTaP,Tdap,Td Vaccine (1 - Tdap) [facility] Start: 06-18-1966 Zoster Vaccines (1 of 2) Zoster Vaccines (1 of 2) [facility] Start: 06-18-1965 Anxiety Screening Anxiety Screening [facility] Start: 06-18-1965 Depression Screening Depression Screening [facility] Start: 06-18-1965 Hepatitis C screening Hepatitis C Screening [facility] Start: 1959 Depression screening using PHQ-9 (Patient Health Questionnaire 9) score Depression Screening (PHQ-2/9) [facility] Start: 06-18-1952 COVID-19 Vaccine (#1) COVID-19 Vaccine (#1) [facility] Start: 06-18-1950 History and physical examination, annual for health maintenance Wellness Visit [facility] Start: 1947 COVID-19 Vaccine (#1) COVID-19 Vaccine (#1) [facility] Start: 1947 Abdominal aortic aneurysm screening Abdominal Aortic Ultrasound [facility] Start: 1947 Lipid panel Lipid Panel [facility] Start: 1947 Medicare Annual Wellness Visit Medicare Annual Wellness Visit (AWV) [facility] Start: 1947 Prostate specific antigen measurement PSA Level [facility] Start: 1947 Screening for malignant neoplasm of colon [facility] Start: 1947 Tetanus vaccination Tetanus: Every 10yrs [facility] Bacteria identified in Blood by Culture [facility] Phone: Bacteria identified in Blood by Culture [facility] Phone: Bacteria identified in Tissue by Culture Culture tissue with gram stain Microbiology Routine Osteomyelitis of foot, left, acute ([facility]) 11/10/2023 1:12 PM EDT [facility] Work Phone: Bacteria identified in Unspecified specimen by Culture Tissue/Wound Culture/Smear Microbiology Routine Wound of right foot 12/21/2022 11:32 AM EST [facility] Service Area Work Phone: X-ray of left ankle XR Ankle Lef t 3+ Views (Standard) Imaging [facility] Acute left ankle pain 02/08/2022 12:24 PM EST [facility] Work Phone: Immunizations Immunization Date Immunization Notes Care Provider Fa [facility] 10-10-2022 influenza virus vacc ine, unspecified formulation Morgan Grover MD Work Phone: [facility] 11-29-2019 Influenza Quadravale nt, 0.5ml (Fluzone High-dose) 65yo and older Nallely Benavidez Work Phone: [facility] 11-29-2019 influenza virus vacc ine, unspecified formulation Morgan Grover MD Work Phone: [facility] 11-01-2018 influenza, high dose seasonal, preservative-free Nallely Benavidez Work Phone: [facility] 04-26-2017 pneumococcal conjuga te vaccine, 13 valent Nallely Benavidez Work Phone: [facility] 11-11-2016 Influenza, injectabl e, Madin Trang Canine Kidney, preservative free, quadrivalent Nallely Benavidez Work Phone: [facility] Payers Date Payer Category Payer Self-pay 2023 Medicare [id number] 2022 [employer] of [employer] ( and others) FOR LIFE [id number] 2022-Present [address] [place] [address] [id number] 2022 [employer] [employer] ( and others) [id number] 2022 Private Health Insurance [employer] FOR LIFE [id number] 2022-Present [address] [place] [address] [id number] 2022 Private Health Insurance [id number] 2022 Unknown [place] FOR [place] REBECCA [id number] 2022-Present [phone] [address] [place] [address] [id number] 2022 Unknown [id number] 2012 Medicare [id number] 2012 Medicare [id number] 1945 Unknown [id number] 2.16.840.1.570565.3.579.2. 903 1947 Unknown [id number] 2.16.840.1.531235.3.579.2. 903 1947 Unknown [id number] 2.16.840.1.501328.3.579.2. 1243 1947 Unknown [id number] 2.16.840.1.998205.3.579.2. 114 1947 Unknown [id number] 2.16.840.1.957347.3.579.2. 1143 1947 Unknown [id number] 2.16.840.1.337491.3.579.2. 1143 1947 Unknown [id number] 2.16.840.1.197645.3.579.2. 1143 Unknown [id number] 2.16.840.1.066188.3.579.2. 462 Unknown [id number] 2.16.840.1.041086.3.579.2. 462 Unknown [id number] 2.16.840.1.605673.3.579.2. 462 Unknown [id number] 2.16.840.1.534467.3.579.2. 462 Unknown [id number] 2.16.840.1.197725.3.579.2. 462 Social History Date Type Detail Facility Start: 02-08-2022 End: 10-30-2023 Tobacco smoking status NHIS Ex-smoker [facility] History of tobacco use Current smoker [facility] History of tobacco use Cigarette Smoker [facility] Start: 02-08-2022 End: 01-05-2023 Tobacco use and exposure Smokeless tobacco non-user [facility] Start: 02-08-2022 End: 11-20-2023 Alcohol intake Lifetime non-drinker (finding) [facility] Start: 1945 Sex Assigned At Not on file [facility] Tobacco smoking status [facility] Tobacco smoking consumption unknown [facility] Work Phone: Start: 01-07-2023 End: 11-10-2023 Gender identity Not on file [facility] Start: 12-11-2022 End: 12-21-2022 Exposure to SARS-CoV-2 (event) Not sure [facility] Start: 01-07-2023 End: 11-10-2023 History of Social function [facility] Are you worried that in the next 2 months you may not have stable housing? No [facility] Start: 1945 Sex Assigned At Male [facility] Clinical Notes 02-08-2022 to 11-05-2024 Note Date & Type Note Facility 11-05-2024 Progress note Note Date/Time November 05, 2024 8:38am [facility] [address] [place] [address] Progress Note - Wound Care 11/05/24832 MR#: [id number] Acct: [id number] Name: YONI VILLALPANDO Rep #:[id number] : [...] Date Recorded By Document 10/15/24 13:57 DL [id number] 10/15/24 14:19 DL Document 10/21/24 10:02 BMF [id number] 10/21/24 10:08 BMF Edit Result 10/21/24 10:02 BMF (1) [id number] 10/21/24 10:10 BMF Document 10/29/24 08:12 DS [id number] 10/29/24 08:20 DS Document 10/29/24 08:21 DS [id number] 10/29/24 08:22 DS Document 11/05/24 08:22 ML [id number] 11/05/24 08:24 ML (1) Pulse Rate (60-100) => 80 Comment => 160/106 BP RECHK L => ARM PULSE 80 PER => MONITOR. 10/15/24 10/21/24 10/29/24 13:57 10:02 08:12 WC - Today's Visit Information Type of service Initial Visit Follow-up Visit Follow-up Visit (Physician/ASSISTANT HAIRSTYLIST (Physician/ASSISTANT HAIRSTYLIST ) ) Arrival Mode Ambulatory Ambulatory Ambulatory [...] Visit Information Type of service Follow-up Visit (Physician/ASSISTANT HAIRSTYLIST ) Arrival Mode Ambulatory Transfer Assistance None [...] Date Recorded By Document 10/15/24 13:57 DL [id number] 10/15/24 14:19 DL Document 10/21/24 10:02 BMF [id number] 10/21/24 10:08 BMF Document 10/29/24 08:12 DS [id number] 10/29/24 08:20 DS Document 11/05/24 08:22 ML [id number] 11/05/24 08:24 ML 10/15/24 10/21/24 10/29/24 13:57 [...] (1-33%) Large (67-100%) Medium (34-66%) -Granulation Quality [place] Pale,[place] -Slough/Fibrin Yes -Necrosis Amt None Present (0 [...] Recorded Date Recorded By Document 10/15/24 14:57 [id number] 10/15/24 14:59 Document 10/21/24 10:22 [id number] 10/21/24 10:33 Document 10/29/24 08:44 [id number] 10/29/24 08:47 JF 10/15/24 10/21/24 10/29/24 14:57 [...] Recorded Date Recorded By Document 10/15/24 15:13 [facility] [id number] 10/15/24 15:14 [facility] Document 10/21/24 10:33 [id number] 10/21/24 10:34 Document 10/29/24 08:55 [id number] 10/29/24 08:55 10/15/24 10/21/24 10/29/24 15:13 10:33 [...] Tape Tape -Other Covering drsg per dl photographic process worker -Hydrogel 1 BLE -Tubular Bandage Single Layer [...] Cosigner Signature (if applicable): CC: ~ Signed [facility] Work Phone: 1(683) 707-852409-24-2025 Progress note [facility] [address] [place] [address] Progress Note - Wound Care 11/05/2433 MR#: [id number] Acct: [id number] Name: YONI VILLALPANDO Rep #:[id number] : [...] Date Recorded By Document 10/15/24 13:57 DL [id number] 10/15/24 14:19 DL Document 10/21/24 10:02 BMF [id number] 10/21/24 10:08 BMF Edit Result 10/21/24 10:02 BMF (1) [id number] 10/21/24 10:10 BMF Document 10/29/24 08:12 DS [id number] 10/29/24 08:20 DS Document 10/29/24 08:21 DS [id number] 10/29/24 08:22 DS Document 11/05/24 08:22 ML [id number] 11/05/24 08:24 ML (1) Pulse Rate (60-100) => 80 Comment => 160/106 BP RECHK L => ARM PULSE 80 PER => MONITOR. 10/15/24 10/21/24 10/29/24 13:57 10:02 08:12 WC - Today's Visit Information Type of service Initial Visit Follow-up Visit Follow-up Visit (Physician/ASSISTANT HAIRSTYLIST (Physician/ASSISTANT HAIRSTYLIST ) ) Arrival Mode Ambulatory Ambulatory Ambulatory [...] Visit Information Type of service Follow-up Visit (Physician/ASSISTANT HAIRSTYLIST ) Arrival Mode Ambulatory Transfer Assistance None [...] Date Recorded By Document 10/15/24 13:57 DL [id number] 10/15/24 14:19 DL Document 10/21/24 10:02 BMF [id number] 10/21/24 10:08 BMF Document 10/29/24 08:12 DS [id number] 10/29/24 08:20 DS Document 11/05/24 08:22 ML [id number] 11/05/24 08:24 ML 10/15/24 10/21/24 10/29/24 13:57 [...] (1-33%) Large (67-100%) Medium (34-66%) -Granulation Quality [place] Pale,[place] -Slough/Fibrin Yes -Necrosis Amt None Present (0 [...] Recorded Date Recorded By Document 10/15/24 14:57 [id number] 10/15/24 14:59 Document 10/21/24 10:22 [id number] 10/21/24 10:33 Document 10/29/24 08:44 [id number] 10/29/24 08:47 10/15/24 10/21/24 10/29/24 14:57 10:22 [...] Recorded Date Recorded By Document 10/15/24 15:13 [facility] [id number] 10/15/24 15:14 [facility] Document 10/21/24 10:33 [id number] 10/21/24 10:34 Document 10/29/24 08:55 [id number] 10/29/24 08:55 10/15/24 10/21/24 10/29/24 15:13 10:33 [...] Tape Tape -Other Covering drsg per dl photographic process worker -Hydrogel 1 BLE -Tubular Bandage Single Layer [...] follow-up with his primary doctor or report [facility] for evaluation. Patient will follow-up in 1 week (2) Acute painful diabetic polyneuropathy: CODE(S): E11.42 - Type 2 diabetes mellitus with diabetic polyneuropathy 11/05/24 0838 Cosigner Signature (if applicable): CC: ~ Signed [facility]09-17-2025 Progress note Author Nathen Gonzalez [facility] Note Date/Time October 29, 2024 11:11am [facility] [address] [place] [address] Progress Note - Wound Care 10/29/24 1108 MR#: [id number] Acct: [id number] Name: YONI VILLALPANDO Rep #:[id number] : 1945 79 From: Nathen LANZA PCP: Dr. Rey Greenwood MD Status:REG R CR Location: [facility] History of Present Illness Date of Service: [...] amputation. Patient did get his x-rays at [facility]. He has been doing dressing changes [...] Date Recorded By Document 10/15/24 13:57 DL [id number] 10/15/24 14:19 DL Document 10/21/24 10:02 BMF [id number] 10/21/24 10:08 BMF Edit Result 10/21/24 10:02 BMF (1) [id number] 10/21/24 10:10 BMF Document 10/29/24 08:12 DS [id number] 10/29/24 08:20 DS Document 10/29/24 08:21 DS [id number] 10/29/24 08:22 DS (1) Pulse Rate (60-100) => 80 Comment => 160/106 BP RECHK L => ARM PULSE 80 PER => MONITOR. 10/15/24 10/21/24 10/29/24 13:57 10:02 08:12 WC - Today's Visit Information Type of service Initial Visit Follow-up Visit Follow-up Visit (Physician/ASSISTANT HAIRSTYLIST (Physician/ASSISTANT HAIRSTYLIST ) ) Arrival Mode Ambulatory Ambulatory Ambulatory [...] Date Recorded By Document 10/15/24 13:57 DL [id number] 10/15/24 14:19 DL Document 10/21/24 10:02 BMF [id number] 10/21/24 10:08 BMF Document 10/29/24 08:12 DS [id number] 10/29/24 08:20 DS 10/15/24 10/21/24 10/29/24 13:57 [...] (1-33%) Large (67-100%) Medium (34-66%) -Granulation Quality [place] Pale,[place] -Slough/Fibrin Yes -Necrosis Amt None Present (0 [...] Recorded Date Recorded By Document 10/15/24 14:57 [id number] 10/15/24 14:59 Document 10/21/24 10:22 [id number] 10/21/24 10:33 Document 10/29/24 08:44 [id number] 10/29/24 08:47 10/15/24 10/21/24 10/29/24 14:57 10:22 [...] Recorded Date Recorded By Document 10/15/24 15:13 [facility] [id number] 10/15/24 15:14 BM Document 10/21/24 10:33 [id number] 10/21/24 10:34 Document 10/29/24 08:55 [id number] 10/29/24 08:55 10/15/24 10/21/24 10/29/24 15:13 10:33 [...] Tape Tape -Other Covering drsg per dl photographic process worker -Hydrogel 1 BLE -Tubular Bandage Single Layer [...] Cosigner Signature (if applicable): CC: ~ Signed [facility] Work Phone: 1(907) 417-432709-17-2025 Progress note [facility] [address] [place] [address] Progress Note - Wound Care 10/29/24 1108 MR#: [id number] Acct: [id number] Name: YONI VILLALPANDO Rep #:[id number] : 1945 79 From: Nathen Chun PM PCP: Dr. Rey Greenwood MD Status:REG R CR Location: [facility] History of Present Illness Date of Service: [...] amputation. Patient did get his x-rays at [facility]. He has been doing dressing changes [...] Start: 10/15/24 13:57 Freq: Status: Active Protocol: [employer] Activity Type Activity Date Activity User E-sign Co-sign Detail Recorded Client Recorded Date Recorded By Document 10/15/24 13:57 DL [id number] 10/15/24 14:19 DL Document 10/21/24 10:02 BMF [id number] 10/21/24 10:08 BMF Edit Result 10/21/24 10:02 BMF (1) [id number] 10/21/24 10:10 BMF Document 10/29/24 08:12 DS [id number] 10/29/24 08:20 DS Document 10/29/24 08:21 DS [id number] 10/29/24 08:22 DS (1) Pulse Rate (60-100) => 80 Comment => 160/106 BP RECHK L => ARM PULSE 80 PER => MONITOR. 10/15/24 10/21/24 10/29/24 13:57 10:02 08:12 - Today's Visit Information Type of service Initial Visit Follow-up Visit Follow-up Visit (Physician/ASSISTANT HAIRSTYLIST (Physician/ASSISTANT HAIRSTYLIST ) ) Arrival Mode Ambulatory Ambulatory Ambulatory [...] Date Recorded By Document 10/15/24 13:57 DL [id number] 10/15/24 14:19 DL Document 10/21/24 10:02 BMF [id number] 10/21/24 10:08 BMF Document 10/29/24 08:12 DS [id number] 10/29/24 08:20 DS 10/15/24 10/21/2425 13:57 10:02 [...] (1-33%) Large (67-100%) Medium (34-66%) -Granulation Quality [place] Pale,[place] -Slough/Fibrin Yes -Necrosis Amt None Present (0 [...] Date Recorded By Document 10/15/24 14:57 JEANNA [id number] 10/15/24 14:59 Document 10/21/24 10:22 JEANNA [id number] 10/21/24 10:33 Document 10/29/24 08:44 JF [id number] 10/29/24 08:47 JF 10/15/24 10/21/24 10/29/24 14:57 [...] Recorded Date Recorded By Document 10/15/24 15:13 [facility] [id number] 10/15/24 15:14 [facility] Document 10/21/24 10:33 JF [id number] 10/21/24 10:34 Document 10/29/24 08:55 [id number] 10/29/24 08:55 10/15/24 10/21/24 10/29/24 15:13 10:33 [...] Tape Tape -Other Covering drsg per dl photographic process worker -Hydrogel 1 BLE -Tubular Bandage Single Layer [...] Cosigner Signature (if applicable): CC: ~ Signed [facility] [id number] History and physical note Author Tex Inman [facility] Note Date/Time October 24, 2024 4:03pm [facility] [address] [place] [address] H&P Exam - Wound Care 10/24/24 1529 MR#: [id number] Acct: [id number] Name: YONI VILLALPANDO Rep #:[id number] : 1945 79 From: Tex Chun PCP: Dr. Rey Greenwood MD Status:REG Jono LI Location: [facility] History of Present Illness Date of Service: [...] topically to his left great toe ulceration. [facility] Medical History Diabetic foot ulcer associated with [...] % (Auto) 68.4, Lymph % (Auto) 21.7, [place] % (Auto) 7.9, Eos % (Auto) 1.3, [...] Multi Select Codes Visit Charges Office Visit/Consults: 60959 OV L4 New 45 min Integumentary Integumentary CPT Codes: 36464 Gina subq tissue 20 sq cm/< Assessment/Plan [...] CODE(S): I25.10 - Atherosclerotic heart disease of sitka coronary artery without angina pectoris (9) History of myocardial infarction: CODE(S): I25.2 - Old myocardial infarction PLAN: Plan This is a 79-year-old male with a history of diabetes mellitus, treated at the [facility] wound center for a diabetic foot ulceration on the plantar aspect of his left hallux. He has been previously treated at [facility] in [place], [place]. Previous medical records are to be [...] Cosigner Signature (if applicable): CC: ~ Signed [facility] Work Phone: 1(415) 340-150309-12-2025 History and physical note [facility] [address] [place] [address] H&P Exam - Wound Care 10/24/24 1529 MR#: [id number] Acct: [id number] Name: YONI VILLALPANDO Rep #:[id number] : 1945 79 From: Tex Chun PCP: Dr. Rey Greenwood MD Status:REG Jono LI Location: [facility] History of Present Illness Date of Service: [...] topically to his left great toe ulceration. [facility] Medical History Diabetic foot ulcer associated with [...] % (Auto) 68.4, Lymph % (Auto) 21.7, [place] % (Auto) 7.9, Eos % (Auto) 1.3, [...] Multi Select Codes Visit Charges Office Visit/Consults: 59001 OV L4 New 45 min Integumentary Integumentary CPT Codes: 00440 Gina subq tissue 20 sq cm/< Assessment/Plan [...] CODE(S): I25.10 - Atherosclerotic heart disease of [place] coronary artery without angina pectoris (9) History of myocardial infarction: CODE(S): I25.2 - Old myocardial infarction PLAN: Plan This is a 79-year-old male with a history of diabetes mellitus, treated at the [facility] wound center for a diabetic foot ulceration on the plantar aspect of his left hallux. He has been previously treated at [facility] in [place], [place]. Previous medical records are to be [...] Cosigner Signature (if applicable): CC: ~ Signed [facility]09-11-2025 Evaluation note* Diagnosis Onset Date Resolution [...] with fat layer exposed chronic October 8:45am [facility] Work Phone: 1(753) 848-120209-11-2025 Evaluation note* Diagnosis Onset Date Resolution Status [...] fat layer exposed chronic November 12 8:44am [facility] Work Phone: 1(328) 754-278809-08-2025 Radiology Diagnostic study note [facility] Imaging Services [address] [place], [place] [address] Foot min 3 Views MR#: [id number] Acct: [id number] Name: YONI VILLALPANDO Rep #: [id number] : 1945 M 79 From: Isacc Narvaez MD PCP: Dr. Rey Greenwood MD Status: REG R CR Study:Foot min 3 Views Date of Exam: 10/06 Exam# [id number] Ordering Dr: Shayne Gonzalez DPM PROCEDURE: FOOT [...] mild degenerative changesseen of the metatarsophalangeal joint [id number] degenerative changes seen of the 1st metatarsal head. Mild degenerative changes are seen throughout the midfoot and the remaining toes. No acute fracture or dislocation is seen. No osseous destructive change is seen to suggest the presence of osteomyelitis. Follow up imaging if and as clinically appropriate. Reading Location: [place] [address] CC: KATHERINE Gonzalez; Dr. Rey Greenwood MD ~ Medical Records Field Technician: Signed [facility]09-05-2025 History and physical note Author Nathen Gonzalez [facility] Note Date/Time October 17, 2024 6:51pm [facility] [address] [place] [address] H&P Exam - Wound Care 10/15/24 1521 MR#: [id number] Acct: [id number] Name: YONI VILLALPANDO Rep #:[id number] : [...] Presenting today to the wound care center [facility] with a chief complaint of right [...] left hallux status post distal S=symes amputation [facility] Medical History HTN (hypertension) Throat cancer COPD [...] Date Recorded By Document 10/15/24 13:57 DL [id number] 10/15/24 14:19 DL 10/15/24 13:57 WC - [...] Date Recorded By Document 10/15/24 13:57 ALYSON [id number] 10/15/24 14:19 DL 10/15/24 13:57 Wound Center Nurse 1 #2 L Grt Toe Plantar -Current Size (cm) - Length 0.5 -Current Size (cm) - Width 0.5 -Current Size (cm) - Depth 0.3 -Total Square Cm 0.25 -Photo Taken Yes -Classification - Thickness Full Thickness without Exposed Support Structure -Exudate Amt Small -Exudate Type Serosanguineous -Wound Margin Thickened -Granulation Amt Small (1-33%) -Granulation Quality [place] -Necrosis Amt None Present (0 %) -Structure [...] Date Recorded By Document 10/15/24 14:57 JEANNA [id number] 10/15/24 14:59 10/15/24 14:57 Wound Center Nurse [...] Recorded Date Recorded By Document 10/15/24 15:13 [facility] [id number] 10/15/24 15:14 [facility] 10/15/24 15:13 Wound Care Center Nurse 3 #2 L Grt Toe Plantar -Other Dressing betadine, bandaid -Other Covering drsg per dl photographic process worker BLE -Tubular Bandage Single Layer -Size of [...] Cosigner Signature (if applicable): CC: ~ Signed [facility] Work Phone: 1(181) 782-233609-05-2025 History and physical note [facility] [address] [place] [address] H&P Exam - Wound Care 10/15/24 1521 MR#: [id number] Acct: [id number] Name: YONI VILLALPANDO Rep #:[id number] : [...] outsideprovider. Presenting today to the woundcare center [facility] with a chief complaint of right [...] left hallux status post distal S=symes amputation [facility] Medical History HTN (hypertension) Throat cancer COPD [...] Date Recorded By Document 10/15/24 13:57 DL [id number] 10/15/24 14:19 DL 10/15/24 13:57 - Today's [...] Date Recorded By Document 10/15/24 13:57 DL [id number] 10/15/24 14:19 DL 10/15/24 13:57 Wound Center Nurse 1 #2 L Grt Toe Plantar -Current Size (cm) - Length 0.5 -Current Size (cm) - Width 0.5 -Current Size (cm) - Depth 0.3 -Total Square Cm 0.25 -Photo Taken Yes -Classification - Thickness Full Thickness without Exposed Support Structure -Exudate Amt Small -Exudate Type Serosanguineous -Wound Margin Thickened -Granulation Amt Small (1-33%) -Granulation Quality [place] -Necrosis Amt None Present (0 %) -Structure [...] Recorded Date Recorded By Document 10/15/24 14:57 [id number] 10/15/24 14:59 10/15/24 14:57 Wound Center Nurse [...] Recorded Date Recorded By Document 10/15/24 15:13 [facility] [id number] 10/15/24 15:14 [facility] 10/15/24 15:13 Wound Care Center Nurse 3 #2 L Grt Toe Plantar -Other Dressing betadine, bandaid -Other Covering drsg per dl photographic process worker BLE -Tubular Bandage Single Layer -Size of [...] Cosigner Signature (if applicable): CC: ~ Signed [facility]10-08-2024 History of Present illness Narrative* Nallely Benavidez - 11/20/2023 3:00 PM EDT Images from the original note were not included. [facility] Patient: Yoni Villalpando : [...] free to contact me. Nallely Benavidez MD [facility] 11/20/23 2:36 PM EDT [facility] [employer] [address], [address] [place] [id number] Office [phone] Chief Complaint: presents for an office visit [...] is preparing to leave and return to [place] next week. REVIEW OF SYSTEMS CARDIAC: Negative [...] Q-T Interval 426 QTc 497 P Wave Osborne 71 R Osborne -56 T Osborne 23 ECG Interpretation Sinus rhythm with occasional Premature ventricular complexes and Premature atrial complexes Left axis deviation Minimal voltage criteria for LVH, may be normal variant ( Waddington product ) Inferior infarction , age undetermined Anterolateral infarct , age undetermined QTcB >= 480 msec Abnormal ECG Confirmed by Darrius Gonzales ([id number]), assignment editor Yen Jeffery ([id number]) on 11/10/2023 6:27:35 AM *Note: Due to [...] times a day. 60 each 0 sour hernnadez extract (Tart Hernandez Extract) 1,000 mg capsule [...] Date INR 0.9 11/09/2023 documented in this encounterPaladin [id number] History of Present illness Narrative* Danny Fuller LPN - 11/13/2023 4:55 PM EDT [place] script held at waterfront director for daughter in law (Tiffani) to pickers material handlers today. (11/13/2023) * Brittany Dominguez RN - [...] care . Milan Castro MD [facility] [phone] * Swati Mansfield RN - 11/13/2023 12:48 [...] Hailey Villalpando Mobile Relation: Spouse Preferred language: Prydeinig Community Coordinator [employer] needed? No Secondary Emergency Contact: garrett villalpando Mobile Relation: Son Community Coordinator [employer] needed? No SIOH Flowsheet Completed?: Yes, no needs at this time Medication Affordability : No concerns related to payment for meds Medical Admission Information Main Diagnosis: Acute congestive heart failure, unspecified heart failure type ([facility]/HCC) Past Medical History: Diagnosis Date Congestive heart failure (CHF) ([facility]) COPD (chronic obstructive pulmonary disease) ([facility]) Coronary artery disease Hyperlipidemia Hypertension Myocardial infarction ([facility]/HCC) Peripheral arterial disease with history of revascularization ([facility]) 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 If you have any questions, please contact: YUE Myles, RN [phone] The patient's clinical indicators include: Options provided: [...] PMH as noted below who presented to [facility] ED 11/09/2023 with complaints of left lower [...] mildly elevated LV. Patient has a primary sorter upholstery parts [facility] that he follows with. Diagnosis: Commuted fracture [...] unknown Ischemic cardiomyopathy given history of prior OK and PCI/CAD CAD with history of PCI over 10 years prior, follows with a primary sorter upholstery parts in [place] Peripheral artery disease Hypertension Dyslipidemia Morbidly obese, [...] O2 can be weaned off Eunice Veronica [facility] Inpatient Care 7 am to 5 pm [facility] 5 Haiku/secure chat or Page at [phone] with full number After 5 pm pls call the [facility] ER pager Subjective: Patient sitting up [...] been ordered for home. He lives in [place] and is visiting here with family currently.He will follow up with his Telepathist in [place]. He has required O2 today and [facility] following.CM will continue to follow for discharge needs/plans. * Alba Martin NP - 11/12/2023 10:12 AM EDT Images from the original note were not included. Progress Note Chief Complaint/Visit Reason: Left lower extremity and left great toe swelling Impression: Patient is a 78-year-old obese male with a PMH as noted below who presented to [facility] ED 11/09/2023 with complaints of left lower [...] mildly elevated LV. Patient has a primary sorter upholstery parts [facility] that he follows with. Diagnosis: Commuted fracture of the left great toe with findings concerning for osteomyelitis. Status post left great toe partial amputation 11/10/2023 Cellulitis of the left great toe, see above AECOPD, suspected on admission Acute on chronic combined systolic and diastolic heart failure, TTE 11/10/2023 with EF 35-40%, baseline unknown Ischemic cardiomyopathy given history of prior OK and PCI/CAD CAD with history of PCI over 10 years prior, follows with a primary sorter upholstery parts in [place] Peripheral artery disease Hypertension Dyslipidemia Morbidly obese, [...] possible discharge home today Eunice Martin CNP [facility] 7 am to 5 pm [facility] 5 Haiku/secure chat or Page at [phone] with full number After 5 pm pls call the [facility] ER pager Subjective: Patient resting in [...] above. -Atherosclerotic coronary artery disease with remote OK and PCI stenting to an unknown vessel over 10 years ago in [place]. He does have a stent card in his wallet but does not have that here with him at the hospital. ECG suggestive of old inferolateral OK which corresponds to wall motion abnormality on [...] Recommendations: He will likely stay in the [place] area for the next few weeks while he recovers and follows up with surgery prior to returning to [place]. He will reestablish with cardiology there. We [...] discharge ZAIN Ruiz 11/12/23 6:57 AM EDT [facility] Thank you for this consultation. If you have any questions, please feel free to call. First Call Mon-Sun [phone]: [facility] [phone] [facility] [phone] [facility] [phone] After hours/Weekends: [phone] For listed Attendings On-Call at each site click here Primary Telepathist: Rosetta Subjective / Interval History: Patient sleeping [...] coordinate care if necessary. Milan Castro M.D. [phone] * Tramaine Perez, - 11/11/2023 7:52 AM EDT Images from the original note were not included. Progress Note Chief Complaint/Visit Reason: Left lower extremity and left great toe swelling Impression: 78-year-old obese male who presented to [facility] ED 11/09/2023 with complaints of left lower [...] mildly elevated LV. Patient has a primary sorter upholstery parts in [place] that he follows with. Cardiology consulted for pre- operative assessment. Diagnosis: Commuted fracture of the left great toe with findings concerning for osteomyelitis. Cellulitis of the left great toe, see above AECOPD, suspected on admission Acute on chronic combined systolic and diastolic heart failure, TTE 11/10/2023 with EF 35-40%, baseline unknown Ischemic cardiomyopathy given history of prior OK and PCI/CAD CAD with history of PCI over 10 years prior, follows with a primary sorter upholstery parts in [place] Peripheral artery disease Hypertension Dyslipidemia Morbidly obese, [...] is still requesting records from his primary sorter upholstery parts in [place]. In the meantime patient will follow-up with orthopedic and heart failure team here in [place] when he leaves before eventually going back to [place] perhaps within a month. -- Orders updated. [...] cardiomyopathy -Atherosclerotic coronary artery disease with remote OK and PCI stenting to an unknown vessel over 10 years ago in [place]. He does have a stent card in his wallet but does not have that here with him at the hospital. ECG suggestive of old inferolateral OK which corresponds to wall motion abnormality on [...] outpatient setting. Apparently he lost his primary sorter upholstery parts after they left the system in [place] and has seen several different providers. We [...] well. He will likely stay in the [place] area for the next few weeks while he recovers and follows up with surgery prior to returning to [place]. He will reestablish with cardiology there. We [...] discharge ZAIN Ruiz 11/11/23 7:37 AM EDT [facility] Thank you for this consultation. If you have any questions, please feel free to call. First Call Mon-Fri [phone]: [facility] [phone] [facility] [phone] [facility] [phone] After hours/Weekends: [phone] For listed Attendings On-Call at each site click here Primary Telepathist: Rosetta Subjective / Interval History: Patient resting [...] #, Relationship) for DC Planning: Hailey Villalpando [phone] Patient Next of Kin / Surrogate Decision [...] Confirmed Pharmacy :Yes and was correct [id number] [place], [place] - [address] AT [address]NER OF [address] [address] Readmission Assessment Completed?: No, does not require [...] is: N/A) Current Homecare Services: None Community File Conversion Operator: None Outside Services: outpatient operations support specialist three times a week (in [place]) Past Services: Not addressed on initial assessment Has the patient served in the [employer] ?: Yes, per family he goes to local [place] for things such as hearing aides but does not receive many services through them. Discharge Needs Initial Transition Plan: Home Back up Transition plan: Home Health Care ABDIRASHID Parker Note: CRIS: 11/12/2023 Primary D/C Plan: Home vs Home with [facility] Next Steps: PT/OT recs, ID, ortho recs, cultures Decision maker: Patient Pre-cert Needed: No Transportation at discharge: Family Needed for d/c recommendations: PT and OT Case Management Narrative CM reviewed case. Patient with left great toe osteomyelitis. Patient currently off floor in OR, CM met with family at bedside, discussed role. Information obtained from son Garrett. Patient lives with spouse Hailey in [place], had been visiting son/his family in [place]. He was originally planning to return to [place] on or although family says when and how he will return to [place] is uncertain at this point. He had been driving, was originally planning to drive back to [place]. He is independent with ADLs. He follows up with a operations support specialist in [place]. He receives some but not many services [...] history as noted below who presented to [facility] ER 11/09/2023 with reports of left lower [...] well as IV Lasix and admitted to [facility]. Blood cultures with no growth for 24hours. Echocardiogram indicates mild hypertrophic with moderately decreased systolic function with an EF of 35 to 40%. Inferior wall and inferiolateral wall moderately hypokinetic. LV mildly dilated. Patient currently lives in [place] and receives his cardiology care there, unfortunately I cannot see his last echocardiogram but the patient and his family indicates he has had an OK in the past and knows he has [...] scheduled bronchodilators; O2 as needed to maintain [id number] than 90% Moreno: na CVC: na DVT prophylaxis: mechanical Blood Product Consent: na Code Status: Full code Disposition: EDOD 11/12/23 Chivo Mayberry [facility] Care 7 am to 5 pm [facility] 5 Haiku/secure chat or Page at [phone] with full number After 5 pm pls call the [facility] ER pager Subjective: Patient is sitting up in bed, several family members are present at bedside. He indicates his pain is tolerable, he is eager to get surgery over with. He does have symptoms of shortness of breath but indicates this is chronic. Did review echocardiogram with patient and family. He indicates he follows with cardiology in [place] and is due for an appointment. Review [...] 11/09/2023 00:06 Allergies: No Known Allergies * Kalli Kearney RN - 11/09/2023 8:07 PM EDT [...] Last Rate: 75 mL/hr (11/09/23 1413) Meghan Barnard RN 11/09/23 1727 * Alba Martin NP - 11/09/2023 1:14 PM EDT Images from the original note were not included. Progress Note Chief Complaint/Visit Reason: Left lower extremity and left great toe swelling. Impression: Patient is a 78-year-old male with past medical history as noted below who presented to [facility] ER 11/09/2023 with reports of left lower [...] well as IV Lasix and admitted to [facility]. Diagnoses: Comminuted fracture of left great [...] scheduled bronchodilators; O2 as needed to maintain [id number] than 90 Moreno: eileen CVC: na DVT prophylaxis: mechanical Blood Product Consent: na Code Status: Full code Disposition: EDOD 11/12/23 Eunice Martin [facility] Care 7 am to 5 pm [facility] 5 Haiku/secure chat or Page at [phone] with full number After 5 pm pls call the [facility] ER pager Subjective: Patient seen resting [...] Diagnosis Date COPD (chronic obstructive pulmonary disease) ([facility]) Hypertension History reviewed. No pertinent surgical history. [...] Procedure Abnormality Status --------- ------ CBC auto differential[[id number]] Abnormal Final result Please view results for [...] Grover MD 11/09/23 0037 documented in this encounterPaladin [id number] Hospital course Narrative* Alba Martin NP - 11/13/2023 12:39 PM EDT Images from the original note were not included. Discharge Summary Admission Date: 11/08/2023 Discharge Date: 11/13/2023 Admitting Provider: [facility] ([facility]) Primary Care Physician at Discharge: Alisia Rees MD Discharge Disposition Home Patient condition on discharge Hemodynamically stable Hospital Course Patient is a 78-year-old obese male with a PMH as noted below who presented to [facility] ED 11/09/2023 with complaints of left lower [...] unknown Ischemic cardiomyopathy given history of prior OK and PCI/CAD CAD with history of PCI over 10 years prior, follows with a primary sorter upholstery parts in [place] Peripheral artery disease Hypertension Dyslipidemia Morbidly obese, [...] Extract 1,000 mg capsule Generic drug: sour hernanedz extract Take 1,000 mg by mouth 1 [...] Your Medications These medications were sent to [facility]/pharmacy #[id number] - [address] AT [address], [place] [address] aspirin 81 mg EC tablet atorvastatin 40 [...] (Arrive by 2:30 PM) Nallely Benavidez Cardiology [phone] [facility] Contact information for follow-up Milan Castro MD Specialty: Orthopaedics, Orthopedic Surgery Relationship: Surgeon [address] [place] [address] Next Steps: Schedule an appointment as soon as possible for a visit in 2 week(s) Primary care provider (PCP) Next Steps: Follow up Questions: Follow-Up in: 1 Follow-Up in: Months Scheduling Instructions: Please schedule a hospital follow up appointment. Take a list of your discharge medications to your appointment. Alisia Rees MD Relationship: PCP - [facility] [address] [facility] [address] Next Steps: Follow up Prakash Baldwin MD Specialty: Cardiology Relationship: Consulting Physician [address] [place] [address] Next Steps: Follow up Questions: Follow-Up in: 1 Follow-Up in: Weeks Milan Castro MD Specialty: Orthopaedics, Orthopedic Surgery Relationship: Surgeon [address] [place] [address] Next Steps: Follow up Questions: Follow-Up in: [...] of care 35 mins Alba Martin NP [facility] ([facility]) * Zunilda Almanza RN - 11/12/2023 8:55 AM EDT 2 gm Low sodium diet, 2L daily fluid restriction. documented in this encounterPaladin [id number] Consult note* Zunilda Almanza RN - 11/12/2023 [...] daily,lasix prn Referrals : HF Education Primary Telepathist: Follows with sorter upholstery parts in [place]- will follow up in 1- 2 wks at [facility] prior to returning to [place] Comments : Congestive heart failure; acute onchronic systolic dysfunction; Left big toe osteomyelitis- S/P left great toe partial amputation 11/10/23 The patient presented with left toe swelling, lower extremity edema, dyspnea. 10-12 days ago, injured his toe. Currently visiting in [place] from [place]. Reviewed 2gm sodium diet, 2L fluid restriction, daily weights, HF Zone sheet provided. States he drinks about 2 20 ounce Mountain Dew pops per day. Reviewed that this is 40 ounces of his recommended 64 ounces. Follow up arranged with cardiology for the pt to be seen 1-2 weeks in the cardiology office prior to the patient returning to [place]. Risk of Unplanned Readmission Score: MEDIUM, 22% CHF [facility] referral: n/a- osteomyelitis as primary currently Recommendations : Close out pt follow up with cardiology, orthopedics in 2 weeks. Paladin [id number] Consult note* Zunilda Almanza RN - 11/12/2023 [...] daily,lasix prn Referrals : HF Education Primary Telepathist: Follows with sorter upholstery parts in [place]- will follow up in 1- 2 wks at [facility] prior to returning to [place] Comments : Congestive heart failure; acute onchronic systolic dysfunction; Left big toe osteomyelitis- S/P left great toe partial amputation 11/10/23 The patient presented with left toe swelling, lower extremity edema, dyspnea. 10-12 days ago, injured his toe. Currently visiting in [place] from [place]. Reviewed 2gm sodium diet, 2L fluid restriction, daily weights, HF Zone sheet provided. States he drinks about 2 20 ounce Mountain Dew pops per day. Reviewed that this is 40 ounces of his recommended 64 ounces. Follow up arranged with cardiology for the pt to be seen 1-2 weeks in the cardiology office prior to the patient returning to [place]. Risk of Unplanned Readmission Score: MEDIUM, 22% CHF [facility] referral: n/a- osteomyelitis as primary currently Recommendations : Close out pt follow up with cardiology, orthopedics in 2 weeks. * Emma Vsaquez, PT - 11/11/2023 10:48 AM EDT Patient: Yoni Villalpando Age: 78 y.o. Sex: male Acute congestive heart failure, unspecified heart failure type (CMS/HCC) [facility] Physical Therapy Evaluation Multi-Disciplinary Rounding Report Ambulation: Walking Assistance: Standby assistance Walking Deficit: Supervision/safety awareness Device: Rolling walker Distance Ambulated (ft): 150 PLOF: Level of [place]: Independent with mobility and functional transfers Lives With: Spouse (pt lives in [place] but is up visiting son in [place], information is for son's house) Type of Home: House Home Adaptive Equipment: Walker - rolling, Cane, Wheelchair-manual, Crutches (but these devices arein [place]) Home Layout: Two level, Full bath main level, Able to live on main level with bedroom/bathroom Home Access: Stairs to enter with rails Home Living Comments: pt home setup info is pt son's house DME Needs: 2 wheeled walker (his is currently in [place]) PT Discharge Recommendation: Home independent Reason for current recommendation based on assessment: no acute P.T. needs identified SUBJECTIVE RN approves session. Pt in chair upon arrival, agreeable to participate. 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) Past Surgical History: Procedure Laterality Date CARDIAC [...] Living Lives With: Spouse (pt lives in [place] but is up visiting son in [place], information is for son's house) Home Adaptive Equipment: Walker - rolling, Cane, Wheelchair-manual, Crutches (but these devices arein [place]) Home Layout: Two level, Full bath main level, Able to live on main level with bedroom/bathroom Home Access: Stairs to enter with rails Entrance Stairs-Number of Steps: 2 Prior Function: Prior Function Level of [place]: Independent with mobility and functional transfers Prior [...] 2 wheeled walker (his is currently in [place]) Encounter Problems Encounter Problems (Active) There are [...] heart failure, unspecified heart failure type (CMS/HCC) [facility] Occupational Therapy Evaluation Multi-Disciplinary Rounding Report Ambulation: Functional Mobility Walking Assistance: Supervision Device: Rolling walker Distance Ambulated (ft): 60 PLOF: Level of [place]: Independent with mobility and functional transfers Lives With: (pt typically lives with spouse in [place] however pt visiting son in [place] currently.) Type of Home: House Home Adaptive Equipment: (pt reports all dme in [place].) Bathroom Equipment: Grab bars in shower Home [...] With: (pt typically lives with spouse in [place] however pt visiting son in [place] currently.) Home Adaptive Equipment: (pt reports all dme in [place].) Home Living Comments: pt home setup info [...] shower Prior Function: Prior Function Level of [place]: Independent with mobility and functional transfers Ambulation [...] services. O.Judith shelton only due topt independent. [facility] Inpatient Daily Activity Short Form Scoring [...] is a 78-year-old male who presented to [facility] emergency room on 11/08/2023. He has had a wound over the plantar aspect of his left great toe for the past 2 months. Initially this was cared for in [place] and is progressively worsened. Ultimately he is here in [place] now and family recommended he come to the emergency room. He does not have significant pain there. Does have a history of a vascular stent. Does not have diabetes with neuropathy. Past Medical History: Diagnosis Date Congestive heart failure (CHF) ([facility]) COPD (chronic obstructive pulmonary disease) ([facility]) Coronary artery disease Hyperlipidemia Hypertension Myocardial infarction ([facility]) Peripheral arterial disease with history of revascularization ([facility]) Vocal cord cancer ([facility]) Current Outpatient Medications Medication Instructions albuterol HFA [...] Result Value Ref Range Left Atrium Minor Osborne 6.4 cm Left Atrium Major Osborne 5.5 cm LA Area Sys (A2C) 22 [...] or to coordinate care. Milan Castro M.D. [phone] * ZAIN Monterroso - 11/09/2023 2:53 PM EDTAssociated [...] ECG changes -Atherosclerotic coronary disease with remote OK and PCI/stenting to an unknown vessel over 10 years ago in [place]. No detailed records available -Peripheral arterial disease [...] lactate. ZAIN Ruiz 11/09/23 3:04 PM EDT [facility] Thank you for this consultation. If you have any questions, please feel free to call. First Call Mon-Fri [phone]: [facility] [phone] [facility] [phone] [facility] [phone] After hours/Weekends: [phone] For listed Attendings On-Call at each site click here Patient Name : Yoni Villalpando 1945 Date of Consultation: 11/09/23 Reason for Consultation: Pre-op Requesting Physician: Alba Martin NP Primary Telepathist: Rosetta History of Present Illness: Mr. Yoni Villalpando is a 78 y.o. male who presented to the emergency department with lower extremity swelling and worsening left great toe wound. He resides in [place] and just recently travel [facility] [place] [facility]. He does follow with wound care for [...] a history of coronary disease with remote OK in 2009, hospitalized in [place], with PCI and stenting to an unknown vessel. He does not provide any details. At that time he was treated for CHF and he recalls a history of left ventricular systolic function but has not had any cardiac testing or regular follow-up for a number of years. 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 He additionally has a history of peripheral arterial disease with previous lower extremity DIRECTOR OF MIDWIFERY/STAFF MIDWIFE and stenting by vascular surgery. I reviewed [...] ZAIN Monterroso. I have personally performed a vsql-se-vyox evaluation on this patient. I have reviewed [...] will continue to follow. Nallely Benavidez MD, [facility] Cardiology * ZAIN Duarte - 11/09/2023 7:03 [...] hypertension, and gout who presented to the [facility] emergency department for evaluation of a [...] visiting family in [place]. He resides in [place] andis established with a wound care team that he sees once a week for a right foot ulcer that is currently stable. He states he will be returning to [place] the first week of November. He is currently afebrile. White blood cell count 4.0. CRP 2.3. ESR 39. Of note, he also has a rightlateral plantar foot wound that he follows with the wound care team in [place] every week for. No drainage or redness [...] family in [place]. He currently resides in [place] and will be returning the first week [...] 11/08/2023 436 QTc 11/08/2023 457 P Wave Osborne 11/08/2023 69 R Osborne 11/08/2023 -33 T Osborne 11/08/2023 6 ECG Interpretation 11/08/2023 Value:Normal sinus rhythm Left axis deviation Minimal voltage criteria for LVH, may be normal variant ( Waddington product ) Inferior infarction , age undetermined Abnormal ECG Confirmed by Reilly NI, Morgan ([id number]), assignment editor Yen Jeffery ([id number]) on 11/09/2023 6:21:32 AM Sodium 11/09/2023 142 [...] about treatment options since he resides in [place]. Please see the orthopedic attending, Dr. Castro's note for further updates to plan of care. The patient was discussed with the orthopedic attending manufacturing production manager, Milan Castro MD, who is in agreement with plan of care at this time. Meghan Shane PA-C Orthopaedic Trauma [phone] documented in this encounterPaladin [id number] Consult note* Emma Vasquez, PT - 11/11/2023 10:48 AM EDT Patient: Yoni Villalpando Age: 78 y.o. Sex: male Acute congestive heart failure, unspecified heart failure type ([facility]/HCC) [facility] Physical Therapy Evaluation Multi-Disciplinary Rounding Report Ambulation: Walking Assistance: Standby assistance Walking Deficit: Supervision/safety awareness Device: Rolling walker Distance Ambulated (ft): 150 PLOF: Level of [place]: Independent with mobility and functional transfers Lives With: Spouse (pt lives in [place] but is up visiting son in [place], information is for son's house) Type of Home: House Home Adaptive Equipment: Walker - rolling, Cane, Wheelchair-manual, Crutches (but these devices arein [place]) Home Layout: Two level, Full bath main level, Able to live on main level with bedroom/bathroom Home Access: Stairs to enter with rails Home Living Comments: pt home setup info is pt son's house DME Needs: 2 wheeled walker (his is currently in [place]) PT Discharge Recommendation: Home independent Reason for current recommendation based on assessment: no acute P.T. needs identified SUBJECTIVE RN approves session. Pt in chair upon arrival, agreeable to participate. Past Medical History: Diagnosis Date Congestive heart failure (CHF) ([facility]) COPD (chronic obstructive pulmonary disease) ([facility]) Coronary artery disease Hyperlipidemia Hypertension Myocardial infarction ([facility]/HCC) Peripheral arterial disease with history of revascularization ([facility]) Vocal cord cancer ([facility]) Past Surgical History: Procedure Laterality Date CARDIAC [...] Living Lives With: Spouse (pt lives in [place] but is up visiting son in [place], information is for son's house) Home Adaptive Equipment: Walker - rolling, Cane, Wheelchair-manual, Crutches (but these devices arein [place]) Home Layout: Two level, Full bath main level, Able to live on main level with bedroom/bathroom Home Access: Stairs to enter with rails Entrance Stairs-Number of Steps: 2 Prior Function: Prior Function Level of [place]: Independent with mobility and functional transfers Prior [...] 2 wheeled walker (his is currently in [place]) Encounter Problems Encounter Problems (Active) There are no active problems. Encounter Problems (Resolved) There are no resolved problems. EDUCATION Education Documentation Mobility Training, taught by Emma Vasquez PT at 11/11/2023 11:23 AM. Learner: Patient Readiness: Acceptance Method: Explanation Response: Verbalizes Understanding Education Comments No comments found. Emma Vasquez, PT [id number] Consult note* Lien Pierre, OT - 11/10/2023 4:09 PM EDT Patient: Yoni Villalpando Age: 78 y.o. Sex: male Acute congestive heart failure, unspecified heart failure type (CMS/HCC) [facility] Occupational Therapy Evaluation Multi-Disciplinary Rounding Report Ambulation: Functional Mobility Walking Assistance: Supervision Device: Rolling walker Distance Ambulated (ft): 60 PLOF: Level of [place]: Independent with mobility and functional transfers Lives With: (pt typically lives with spouse in [place] however pt visiting son in [place] currently.) Type of Home: House Home Adaptive Equipment: (pt reports all dme in [place].) Bathroom Equipment: Grab bars in shower Home [...] With: (pt typically lives with spouse in [place] however pt visiting son in [place] currently.) Home Adaptive Equipment: (pt reports all dme in [place].) Home Living Comments: pt home setup info [...] shower Prior Function: Prior Function Level of [place]: Independent with mobility and functional transfers Ambulation [...] documentation found. Education Comments No comments found. Paladin [id number] Nurse Note* Lona Nobles RN - 11/10/2023 2:31 PM EDT Family updated Pal[facility] [id number] Procedure note* Lona Nobles RN - 11/10/2023 2:31 PM EDT Family updated * Milan Castro MD - 11/10/2023 1:02 PM EDT OPERATIVE REPORT [facility] [place] Patient Name: Yoni Villalpando Patient : 1945 Patient Date of surgery: 11/10/23 Surgeon: Milan Castro MD Poured Pipe Maker: Sammie Daly, PGY 4 Preoperative Diagnosis: Left [...] care or with questions. Milan Castro MD [phone] * Sammie Daly MD - 11/10/2023 1:02 PM EDT Date: 11/08/2023 - 11/10/2023 Location: [facility] [place] Name: Yoni Villalpando, : 1945, Diagnosis Pre-op Diagnosis * Osteomyelitis of foot, left, acute (CMS/HCC) [M86.172] Post-op Diagnosis * Osteomyelitis of foot, left, acute (CMS/HCC) [M86.172] Procedures Left great toe partial amputation Additional Procedures Indications: Yoni Villalpando is an 78 y.o. male who is having surgery for left great toe osteomyelitis. Surgeon(s) & Poured Pipe Maker(s) * Milan Castro MD - Primary * Sammie Daly MD - Resident - Assisting No surgical staff documented. Staff Supplier Engineer: Amparo Lopez RN; Nilda Rocha RN Scrub [...] MD PGY-4 Orthopedic Surgery documented in this encounterPaladin [id number] Surgery Surgical operation note* Milan Castro MD - 11/10/2023 1:02 PM EDT OPERATIVE REPORT [facility] [place] Patient Name: Yoni Villalpando Patient : 1945 Patient Date of surgery: 11/10/23 Surgeon: Milan Castro MD Poured Pipe Maker: Sammie Daly PGY 4 Preoperative Diagnosis: Left [...] care or with questions. Milan Castro MD [phone] Pal[facility] [id number] Surgery Surgical operation note* Sammie Daly MD - 11/10/2023 1:02 PM EDT Date: 11/08/2023 - 11/10/2023 Location: [facility] [place] Name: Yoni Villalpando, : 1945, Diagnosis Pre-op Diagnosis * Osteomyelitis of foot, left, acute (CMS/HCC) [M86.172] Post-op Diagnosis * Osteomyelitis of foot, left, acute (CMS/HCC) [M86.172] Procedures Left great toe partial amputation Additional Procedures Indications: Yoni Villalpando is an 78 y.o. male who is having surgery for left great toe osteomyelitis. Surgeon(s) & Poured Pipe Maker(s) * Milan Castro MD - Primary * Sammie Daly MD - Resident - Assisting No surgical staff documented. Staff Supplier Engineer: Amparo Lopez RN; Nilda Rocha RN Scrub [...] weeks Sammie Daly MD PGY-4 Orthopedic Surgery Paladin [id number] Consult note* Milan Csatro MD - 11/10/2023 12:35 PM EDT Orthopedic Surgery Consult Note Chief complaint: Left great toe wound History of present illness: The patient is a 78-year-old male who presented to [facility] emergency room on 11/08/2023. He has had a wound over the plantar aspect of his left great toe for the past 2 months. Initially this was cared for in [place] and is progressively worsened. Ultimately he is here in [place] now and family recommended he come to the emergency room. He does not have significant pain there. Does have a history of a vascular stent. Does not have diabetes with neuropathy. Past Medical History: Diagnosis Date Congestive heart failure (CHF) ([facility]) COPD (chronic obstructive pulmonary disease) ([facility]) Coronary artery disease Hyperlipidemia Hypertension Myocardial infarction ([facility]) Peripheral arterial disease with history of revascularization ([facility]) Vocal cord cancer ([facility]) Current Outpatient Medications Medication Instructions albuterol HFA [...] Result Value Ref Range Left Atrium Minor Osborne 6.4 cm Left Atrium Major Osborne 5.5 cm LA Area Sys (A2C) 22 [...] or to coordinate care. Milan Castro M.D. [phone] [facility] [id number] Hospital Discharge instructions* Discharge Instructions * Zunilda Almanza RN - 11/10/2023 11:53 AM EDT Images from the original note were not included. Foot Surgery Post-Operative Instructions Dr. Milan Castro M.D. [phone] Dressing: Your foot will have a dressing [...] improve. Follow-Up Appointment: Please call my office ([phone]) to schedule your post-op appointment. Iwould like to see you roughly 2 weeks from the date of your surgery. Office locations are located [facility], [place], and [place]. Please call the office and they will [...] sent through Care Everywhere. * Heart Failure (Prydeinig) * Fluid Restriction (Prydeinig) documented in this encounterPaladin [id number] Consult note* ZAIN Monterroso - 11/09/2023 2:53 [...] ECG changes -Atherosclerotic coronary disease with remote OK and PCI/stenting to an unknown vessel over 10 years ago in [place]. No detailed records available -Peripheral arterial disease [...] lactate. ZAIN Ruiz 11/09/23 3:04 PM EDT [facility] Thank you for this consultation. If you have any questions, please feel free to call. First Call Mon-Fri [phone]: [facility] [phone] [facility] [phone] [facility] [phone] After hours/Weekends: [phone] For listed Attendings On-Call at each site click here Patient Name : Yoni Villalpando 1945 Date of Consultation: 11/09/23 Reason for Consultation: Pre-op Requesting Physician: Alba Martin NP Primary Telepathist: [place] History of Present Illness: Mr. Yoni Villalpando is a 78 y.o. male who presented to the emergency department with lower extremity swelling and worsening left great toe wound. He resides in [place] and just recently travel to [facility]. He does follow with wound care for [...] a history of coronary disease with remote OK in 2009, hospitalized in [place], with PCI and stenting to an unknown vessel. He does not provide any details. At that time he was treated for CHF and he recalls a history of left ventricular systolic function but has not had any cardiac testing or regular follow-up for a number of years. 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 He additionally has a history of peripheral arterial disease with previous lower extremity DIRECTOR OF MIDWIFERY/STAFF MIDWIFE and stenting by vascular surgery. I reviewed [...] ZAIN Monterroso. I have personally performed a aebv-pl-znmk evaluation on this patient. I have reviewed [...] will continue to follow. Nallely Benavidez MD, [facility] Cardiology Paladin [id number] Consult note* ZAIN Duarte - 11/09/2023 7:03 [...] hypertension, and gout who presented to the [facility] emergency department for evaluation of a [...] visiting family in [place]. He resides in [place] andis established with a wound care team that he sees once a week for a right foot ulcer that is currently stable. He states he will be returning to [place] the first week of November. He is currently afebrile. White blood cell count 4.0. CRP 2.3. ESR 39. Of note, he also has a rightlateral plantar foot wound that he follows with the wound care team in [place] every week for. No drainage or redness [...] family in [place]. He currently resides in [place] and will be returning the first week [...] 11/08/2023 436 QTc 11/08/2023 457 P Wave Osborne 11/08/2023 69 R Osborne 11/08/2023 -33 T Osborne 11/08/2023 6 ECG Interpretation 11/08/2023 Value:Normal sinus rhythm Left axis deviation Minimal voltage criteria for LVH, may be normal variant ( Waddington product ) Inferior infarction , age undetermined Abnormal ECG Confirmed by Morgan Grover MD ([id number]), assignment editor Yen Jeffery ([id number]) on 11/09/2023 6:21:32 AM Sodium 11/09/2023 142 [...] about treatment options since he resides in [place]. Please see the orthopedic attending, Dr. Castro's note for further updates to plan of care. The patient was discussed with the orthopedic attending manufacturing production manager, Milan Castro MD, who is in agreement with plan of care at this time. Meghan Shane PA-C Orthopaedic Trauma [phone] [place] Phone: [phone] History and physical note* Sabrina Bailey, - [...] at that time. He was transferred to [facility]. He was evaluated there and prescribed [...] well as IV Lasix and admitted to [facility]. Review of Systems All other systems reviewed and are negative. Past Medical History: Diagnosis Date COPD (chronic obstructive pulmonary disease) ([facility]) Hypertension History reviewed. No pertinent surgical history. [...] well as IV Lasix and admitted to [facility]. Diagnoses: Comminuted fracture of left great [...] confirmed Disposition: EDOD 11/11/23 Sabrina Bailey DO [facility] Care ([facility]) [facility] [id number] History and physical note* Sabrina Bailey DO [...] at that time. He was transferred to [facility]. He was evaluated there and prescribed [...] well as IV Lasix and admitted to [facility]. Review of Systems All other systems [...] well as IV Lasix and admitted to [facility]. Diagnoses: Comminuted fracture of left great toe, cannot exclude osteomyelitis Left toe wound Cellulitis of left lower extremity Elevated lactate Suspected COPD exacerbation Chronic diastolic CHF, possible acute exacerbation Elevated troponin, likely secondary to demand ischemia Thrombocytopenia, mild. Acute on chronic Anemia, normocytic, chronic CAD GERD Hypertension Gout Remote history of DVT Plan: Admit to [facility] on telemetry Patient was given IV [...] confirmed Disposition: EDOD 11/11/23 Sabrina Bailey DO [facility] Care ([facility]) documented in this encounterPaladin [id number] Note* Addendum Note - Emelia Gresham MA - 10/30/2023 1:21 PM EDTAddended by: EMELIA GRESHAM on: 10/30/2023 01:21 PM Modules accepted: Orders [facility]09-17-2024 Miscellaneous Notes* Addendum Note - Emelia Gresham MA - 10/30/2023 1:21 PM EDTAddended by: EMELIA GRESHAM on: 10/30/2023 01:21 PM Modules accepted: Orders documented in this encounterDayton [facility]2024 NoteHNO ID: [id number] Author: AAKASH JIANG APRN.ASSISTANT HAIRSTYLIST Service: ? Author Type: Nurse Practitioner Type: [...] care and patient will self transport to [facility]. Patient otherwise is nontoxic-appearing.[facility]09-17-2024 History of Present illness Narrative* Aakash Jiang [...] care and patient will self transport to [facility]. Patient otherwise is nontoxic-appearing. documented in this encounterDayton Children'S Hospital11-28-2023 History of Present illness Narrative* Miguelina Mccain [...] continuity of care gunner Corcoran PCP in [place]. Stability of the patient: Moderately Stable - [...] Hailey Villalpando Mobile Relation: Spouse Preferred language: Prydeinig Community Coordinator For [employer] needed? No SIOH Flowsheet Completed?: Yes, no needs at this time Medication Affordability : No concerns related to payment for meds Medical Admission Information Main Diagnosis: Fever Past Medical History: Diagnosis Date COPD (chronic obstructive pulmonary disease) ([facility]) Hypertension Discharge Information Final Discharge Disposition: (P) [...] discharge home. He will drive back to [place] and schedule O/P follow up with his physicians there. 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 No other needs identified. Case closed. Miscellaneous [...] onward) Start Ordered 01/07/23 0201 Adult diet [facility]; General; Regular Diet effective now Question Answer Comment Location [facility] Diet Type (req) General General [...] discharge home with outpatient follow up in [place]. Anticipate discharge later today. CM will continue [...] an orthopedic standpoint. -Follow-up with orthopedics in [place] as well as wound care. ZAIN Sawyer-C Orthopaedic Trauma [phone] * Miguelina Mccain RN - 01/08/2023 4:48 [...] Diagnosis Date COPD (chronic obstructive pulmonary disease) ([facility]) Hypertension Allergies as of 01/06/2023 (No Known [...] C (98.1 F), Max:39.4 C (102.9 F) [place] body weight: 73 kg (160 lb 15 [...] Villalpando Age: 77 y.o. Sex: male Fever [facility] Occupational Therapy Evaluation Multi-Disciplinary Rounding Report Ambulation: Functional Mobility Walking Assistance: Close supervision, Independent Device: No device PLOF: Level of [place]: Independent with mobility and functional transfers Lives With: Spouse Type of Home: House Home Adaptive Equipment: Walker - rolling, Cane, Wheelchair-manual, Crutches Bathroom Equipment: None Home Layout: One level Home Access: Stairs to enter without rails (pt son's house has steps, pt house in [place] no steps from garage) DME Needs: OT Discharge Recommendation: Home independent Reason for current recommendation: no needs SUBJECTIVE Past Medical History: Diagnosis Date COPD (chronic obstructive pulmonary disease) ([facility]) Hypertension History reviewed. No pertinent surgical history. [...] son's house has steps, pt house in [place] no steps from garage) Entrance Stairs-Number of Steps: 2-3 Bathroom Shower/Tub: Tub/shower unit, Walk-in shower Bathroom Toilet: Standard Bathroom Equipment: None Prior Function: Prior Function Level of [place]: Independent with mobility and functional transfers Do [...] of DVT, and gout who presents to [facility] ED on 01/06/2023 for evaluation of [...] on vancomycin and Zosyn and admitted to [facility] with a consultation to orthopedic surgery. [...] next 24 hours if fevers resolve Ken Donato, [facility] ([facility]) Subjective: Says he feels better. Has [...] consulted for recs. The patient lives in [place] and is here visiting family. He plans to returtn to [place] soon and will need f/u there for [...] his right foot. This occurred down in [place]. He lives down there and was recently [...] then needs weekly wound care through a operations support specialist. Patient was planning on returning to [place] before this happened and he still plans to return to [place] in the very near future. It sounds [...] coordinate care if necessary. Porfirio Simon MD [phone] cell * Viola Casas RN - 01/08/2023 [...] :Yes and was correct [id number] - [address] AT [address] [address] Readmission Assessment Completed?: No, does not require [...] is: N/A) Current Homecare Services: None Community File Conversion Operator: None Outside Services: None Past Services: Not [...] OT Case Management Narrative Pt lives in [place], is here visiting family. Plan to return [...] of DVT, and gout who presents to [facility] ED on 01/06/2023 for evaluation of [...] on vancomycin and Zosyn and admitted to [facility] with a consultation to orthopedic surgery. [...] results and clinical improvement Gianfranco Jewell NP [facility] Care ([facility]) Subjective: Feels better overall. Concerned about discharge planning as he lives in [place]- discussed findingsof MRI and plans for further [...] pt admitted for cellulitis * Ashlyn Benoit [facility] - 01/07/2023 12:24 AM EST Pharmacokinetic Consult - Vancomycin Dosing Day #1 Yoni Villalpando is a 77 year old male who presents to [facility] ER with a chief complaint of increased [...] pm after taking his Kef annamaria and Bel[place]. Temperature increased from 101 to 103. Patient [...] Diagnosis Date COPD (chronic obstructive pulmonary disease) ([facility]) Hypertension Allergies as of 01/06/2023 (No Known [...] (99.4 F), Max:39.4 C (102.9 F) IBW: [place] body weight: 73 kg (160 lb 15 [...] 750 mg every 12 hours estimating an URZ483 with a predicted peak= 23 and a [...] his suffered a stroke. He lives in [place]. Since September he has had a wound [...] doing. 1 week ago he saw a operations support specialist. At no previous time has been [...] 4:00 and after taking his Keflex and [place] his temperature was rechecked a little later [...] trouble walking. He resides mostly in the [facility] but he has been here for the last few months and receiving wound care here. Discussed with independent historian -: Yes, children bedside Review of External Record -: Yes: Reviewed emergency visit yesterday PAST MEDICAL HISTORY: Patient Active Problem List Diagnosis Fever Cellulitis of right lower leg Past Medical History: Diagnosis Date COPD (chronic obstructive pulmonary disease) ([facility]) Hypertension History reviewed. No pertinent surgical history. [...] Procedure Abnormality Status --------- ------ CBC auto differential[[id number]] Abnormal Final result Please view results for [...] as of 01/09/231655 Sat Jan 06, 2023 645 I discussed this with orthopedic resident, Dave [...] of foot, chronic, right, with unspecified severity (CMS/[facility]) The differential associated with the patient's presentation includes cellulitis, osteomyelitis, soft tissue infection, necrotizing soft tissue infection, septic arthritis Discussed management with physician/healthcare provider/other source -: Yes, Hospitalist, [facility] Test Considered But Not Performed List -: [...] damage and pain Alternatives discussed: No treatment [place] protocol: Patient identity confirmed: Verbally with patient [...] Dan MD 01/09/23 1656 documented in this [facility]11-28-2023 Hospital course Narrative* Ken Donato, - 01/09/2023 10:32 AM EST Images from the original note were not included. Discharge Summary Admission Date: 01/06/2023 Discharge Date: 01/09/2023 Admitting Provider: [facility] ([facility]) Primary Care Physician at Discharge: Alisia Rees MD Discharge Disposition Home Patient condition on discharge Improved Hospital Course Yoni Villalpando is a 77 y.o. male with past medical history of COPD, hypertension, heart failure, PAD, remote hx of DVT, and gout who presents to [facility] ED on 01/06/2023 for evaluation of [...] on vancomycin and Zosyn and admitted to [facility] with a consultation to orthopedic surgery. [...] Your Medications These medications were sent to [facility]/pharmacy #[id number] - [address] AT [address] , [facility] [address] amoxicillin-clavulanate 875-125 mg per tablet oxyCODONE 5 mg immediate release tablet Code Status at Discharge: Full Code - Confirmed Outpatient Follow-Up He will follow-up with his primary care physician in [place] Vitals and Physical Exam Patient Vitals for [...] of care 30 minutes Ken Donato DO [facility] Care ([facility]) * Nilda Edwards RN - 01/08/2023 11:42 AM EST Wound Care: Rt lateral foot and Lt 5th toe Ulcers - Pt may shower. Dry wounds, then apply small amount of Medihoney alginate to wound bed only, then cover with Mepilex Border foam. Change every 3 days. documented in this encounterPaladin [id number] Consult note* Nilda Edwards RN - 01/08/2023 [...] Bed Tissue Assessment Dry 01/08/23704 Pat-Wound Assessment Intact;[place] 01/08/23 07 Shape Other (Comment) 01/07/232237 Closure [...] days until seen by Wound Care in [facility]. [place] Education: Discussed importance of compression to assist with healing. He verbalized understanding. 01/08/2023 11:31 AM EST Paladin [id number] Consult note* Nilda Edwards RN - 01/08/2023 [...] Tissue Assessment Dry 01/08/23 07 Pat-Wound Assessment Intact;[place] 01/08/23704 Shape Other (Comment) 01/07/232237 Closure None [...] days until seen by Wound Care in [facility] Education: Discussed importance of compression to assist with healing. He verbalized understanding. 01/08/2023 11:31 AM EST * Emma Vasquez, PT - 01/07/2023 2:05 PM EST Patient: Yoni Villalpando Age: 77 y.o. Sex: male Fever [facility] Physical Therapy Evaluation Multi-Disciplinary Rounding Report Ambulation: Walking Assistance: Close supervision Walking Deficit: Supervision/safety awareness Device: (held onto IV pole for first 1/3 of gait, was able to let go for rest of gait without change in mechanics) Distance Ambulated (ft): 200 PLOF: Level of [place]: Independent with mobility and functional transfers Lives With: (spouse in [place]; they are in town visiting family currently [...] Living: Home Living Lives With: (spouse in [place]; they are in town visiting family currently until 01-10) Home Adaptive Equipment: Walker - rolling, Cane, Crutches, Wheelchair-manual Home Layout: One level (both pt's home and family's local home) Home Access: Stairs to enter without rails Entrance Stairs-Number of Steps: 2-3 (both pt's home and family's local home) Prior Function: Prior Function Level of [place]: Independent with mobility and functional transfers Prior [...] is in town to assist with his ppsmev-lc-hyj who just had a stroke. On Sunday, [...] following with wound care at home in [place] and in [place] since he's been here. In August he developed a right lateral foot callous that after removal has left a wound. He was seen by vascular surgery in [place] for possible right lower leg revascularization. Per daughter, in November he underwent right femoral endarterectomy without stent placement. He was most recently seen by wound care in [place] on Sunday for bedside debridement. Since admission, [...] Diagnosis Date COPD (chronic obstructive pulmonary disease) ([facility]/HCC) Hypertension Current Facility-Administered Medications Medication Dose Route [...] mg 15 mg intravenous q6h PRN Prashanth aMrtinez DO naloxone (NARCAN) injection 0.04 mg 0.04 [...] mg 5 mg oral q4h PRN ZAIN eBck Oxygen Therapy, Adult inhalation PRN ZAIN Beck [...] 2009 Alcohol: Denies Drugs: Denies Lives in [facility] Objective Visit Vitals BP (!) 156/83 (BP [...] and plan will be discussed with attending manufacturing production manager Dr. Simon. Sammie Daly MD PGY-3 Orthopedic Surgery This note was created using [employer] dictation software. It was reviewed for any errors but if there are any clinically relevant typos, errors, or inaccuracies, please notify the author immediately. documented in this encounterPaladin [id number] Consult note* Emma Vasquez, PT - 01/07/2023 2:05 PM EST Patient: Yoni Villalpando Age: 77 y.o. Sex: male Fever [facility] Physical Therapy Evaluation Multi-Disciplinary Rounding Report Ambulation: Walking Assistance: Close supervision Walking Deficit: Supervision/safety awareness Device: (held onto IV pole for first 1/3 of gait, was able to let go for rest of gait without change in mechanics) Distance Ambulated (ft): 200 PLOF: Level of [place]: Independent with mobility and functional transfers Lives With: (spouse in [place]; they are in town visiting family currently [...] Diagnosis Date COPD (chronic obstructive pulmonary disease) ([facility]) Hypertension History reviewed. No pertinent surgical history. OBJECTIVE Precautions: Precautions Medical Precautions: Fall Risk Safety Interventions: Call peña within reach, Gait belt Vitals/Pain: Pain Assessment Pain Assessment: No/denies pain (at rest, mild increase in foot pain with ambulation) Cognition: Cognition Overall Cognitive Status: Within Functional Limits Arousal/Alertness: Appropriate responses to stimuli Home Living: Home Living Lives With: (spouse in [place]; they are in town visiting family currently until 01-10) Home Adaptive Equipment: Walker - rolling, Cane, Crutches, Wheelchair-manual Home Layout: One level (both pt's home and family's local home) Home Access: Stairs to enter without rails Entrance Stairs-Number of Steps: 2-3 (both pt's home and family's local home) Prior Function: Prior Function Level of [place]: Independent with mobility and functional transfers Prior [...] Comments No comments found. Emma Vasquez PT [id number] Consult note* Sammie Daly MD - 01/07/2023 [...] is in town to assist with his xbpzuo-nc-kic who just had a stroke. On Sunday, [...] following with wound care at home in [place] and in [place] since he's been here. In August he developed a right lateral foot callous that after removal has left a wound. He was seen by vascular surgery in [place] for possible right lower leg revascularization. Per daughter, in November he underwent right femoral endarterectomy without stent placement. He was most recently seen by wound care in [place] on Sunday for bedside debridement. Since admission, [...] anticoagulation PSH: CABG, R femoral endarterectomy, L ASHLYE Allergies: Denies Active Ambulatory Problems Diagnosis Date Noted No Active Ambulatory Problems Resolved Ambulatory Problems Diagnosis Date Noted No Resolved Ambulatory Problems Past Medical History: Diagnosis Date COPD (chronic obstructive pulmonary disease) ([facility]) Hypertension Current Facility-Administered Medications Medication Dose Route [...] 2009 Alcohol: Denies Drugs: Denies Lives in [facility] Objective Visit Vitals BP (!) 156/83 (BP [...] and plan will be discussed with attending manufacturing production manager Dr. Simon. Sammie Daly MD PGY-3 Orthopedic Surgery This note was created using [employer] dictation software. It was reviewed for any errors but if there are any clinically relevant typos, errors, or inaccuracies, please notify the author immediately. [id number] History and physical note* Prashanth Martinez DO [...] of DVT, and gout who presents to [facility] ED on 01/06/2023 for evaluation of acute right knee redness, swelling and pain. Patient is from [place] and came to [place] to visit his [...] of DVT, and gout who presents to [facility] ED on 01/06/2023 for evaluation of [...] on vancomycin and Zosyn and admitted to [facility] with a consultation to orthopedic surgery. [...] results and clinical improvement Prashanth Martinez DO [facility] ([facility]) [place] Phone: 1(801) 153-247711-25-2023 History and physical note* Prashanth Martinez DO [...] of DVT, and gout who presents to [facility] ED on 01/06/2023 for evaluation of acute right knee redness, swelling and pain. Patient is from [place] and came to [place] to visit his [...] data in the 24 hours ending 01/06/23 9398 Physical Exam Constitutional: Appearance: Normal appearance. HENT: [...] of DVT, and gout who presents to [facility] ED on 01/06/2023 for evaluation of [...] on vancomycin and Zosyn and admitted to [facility] with a consultation to orthopedic surgery. [...] results and clinical improvement Prashanth Martinez DO [facility] ([facility]) documented in this encounterPaladin [id number] Emergency department Note* ED Bed Hold Note - Allyson Nava RN - 01/06/2023 8:32 PM EST Bed: ED-02 Expected date: 01/06/23 Expected time: Means of arrival: Comments: Duby [address]25-2023 Emergency department Note* ED Bed Hold Note - Allyson Nava RN - 01/06/2023 8:32 PM EST Bed: ED-11 Expected date: 01/06/23 Expected time: Means of arrival: Comments: Duby when clean [place] [address]-25-2023 Miscellaneous Notes* ED Bed Hold Note - Allyson Nava RN - 01/06/2023 8:32 PM EST Bed: ED-02 Expected date: 01/06/23 Expected time: Means of arrival: Comments: Duby * ED Bed Hold Note - Allyson Nava RN - 01/06/2023 8:32 PM EST Bed: ED-11 Expected date: 01/06/23 Expected time: Means of arrival: Comments: Duby when clean [place] [address]-24[place]2023 Hospital Discharge instructions* Discharge Instructions* Morgan Grover MD - 01/05/2023 7:19 PM EST Continue to follow with wound care as scheduled. * Attachments The following attachments cannot be sent through Care Everywhere. * Cellulitis (Prydeinig) * Knee Pain or Injury ([place]in[place]) [place] [address]-[place] Emergency department Note* ED Bed Hold Note - Zahra Figueredo - 01/05/2023 6:36 PM EST Bed: ED-21 Expected date: Expected time: Means of arrival: Comments: Britt Villalpando Paladin [id number] Miscellaneous Notes* ED Bed Hold Note - Zahra Bea - 01/05/2023 6:36 PM EST Bed: ED-21 Expected date: Expected time: Means of arrival: Comments: Britt Villalpando documented in this encounterPaladin [id number] History of Present illness Narrative* Morgan Grover [...] Diagnosis Date COPD (chronic obstructive pulmonary disease) ([facility]) Hypertension History reviewed. No pertinent surgical history. [...] Morgan Grover MD 01/05/235 documented in this encounterPaladin [id number] History and physical note Author Nathen Gonzalez [facility] January 03, 2023 11:02am Note Date/Time January 03, 2023 11:02am [facility] [address] [place] [address] H&P Exam - Wound Care 01/03/23 1056 MR#: [id number] Acct: [id number] Name: YONI VILLALPANDO Rep #:[id number] : 1945 77 From: Nathen Chun PM PCP: Alisia Rees MD Status:REG RCR Location: History of Present Illness Date of Service: 01/03/23 Chief Complaint: Right foot ulceration History of Wound: Mr. Villalpando is a 77-year-old male with a past medical history of coronary artery disease and clean out to the right lower extremity by an outsideprovider. Presenting today to the wound care center [facility] with a chief complaint of right [...] symptoms. No otherpedal complaints at this time. [facility] Home Medications albuterol 90 mcg/actuation aerosol inhaler [...] Any Declines Assistive Device With Patient No Culture/Orthodox/Tan Room Supervisor Cultural/Orthodox Needs that may affect No Treatment Plan Teaching: Wound Center Welcome to the Wound Care Center Prydeinig (a) 1 - + WC - Nurse [...] Thickened -Granulation Amt Medium (34-66%) -Granulation Quality [place] -Necrosis Amt Medium (34-66%) -Necrotic Tissue Type [...] the patient he will be returning to [place] in 10 days. Will make all attempts to get the patient a wound care center contact information and possible establishment at the time of his arrival back to [place]. Patient will follow-up with Dr. Gonzalez for [...] Cosigner Signature (if applicable): CC: ~ Signed [facility] Work Phone: 1(244) 275-224011-09-2023 History of Present illness Narrative* Matt SHANI Hurtado - 12/21/2022 10:40 AM EST 77 y.o. male presents for evaluation of right foot ulcer that has been ongoing for several weeks. States he has PVD and has been seeing PCP in [place] for this issue but has never been [...] or any new concerns. Matt Mallory CNP [facility] [phone] documented in this encounterParkwood Hospital Work Phone: 1(514) 111-803312-28-2022 History of Present illness Narrative* Sabrina Lewis PA-C - 02/08/2022 12:51 PM EST Images from the original note were not included. Patient Name: [facility] Location: Timothy Francesca [address] [place] [phone] Date Of : Date Of Visit: 1945 02/08/2022 MRN# Provider: [id number] Sabrina Lewis PA-C Chief Complaint Patient presents [...] DVTs >10 yrs ago, did drive from [place] on 01/28. Denies calf pain or diffuse [...] or acutely worsening symptoms. documented in this [id number] Instructions* Patient Instructions* Sabrina Lewis PA-C - 02/08/2022 12:34 PM EST Elevate and ice 3 times daily for 20 minutes. Go to the ER with any new or acutely worsening symptoms. * Attachments The following attachments cannot be sent through Care Everywhere. * Gout (Prydeinig) documented in this encounterTr[facility] CenterEvaluation [facility]* Diagnosis Acute left ankle pain- Primary Acute gout of left ankle, unspecified cause documented in this encounter [facility] note* Diagnosis Wound of right foot- Primary documented in this encounter [facility] Work Phone: Evaluation note* Diagnosis Acute pain of right knee- Primary Right elbow pain Pain in joint, upper arm Ulcer of right foot, limited to breakdown of skin (CMS/HCC) Cellulitis of right leg documented in this encounter [facility] note* Diagnosis Fever- Primary Fever, unspecified Cellulitis of right lower leg Effusion, right knee Ulcer of foot, chronic, right, with unspecified severity (CMS/HCC) Cellulitis of right lower leg documented in this encounter [facility] note* Diagnosis Onset Date Resolution Status Cellulitis acute Idiopathic neuropathy acute Peripheral vascular disease acute 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 [facility] Work Phone: Evaluation note* Diagnosis Injury of left great toe, initial encounter- Primary documented in this encounter [facility] note* Diagnosis Acute congestive heart failure, unspecified heart failure type (CMS/HCC)- Primary Acute congestive heart failure, unspecified heart failure type (CMS/HCC) Osteomyelitis, unspecified site, unspecified type (CMS/HCC) Osteomyelitis of foot, left, acute (CMS/HCC) [facility]* Diagnosis Acute congestive heart failure, unspecified heart failure type ([facility]/HCC)- Primary Coronary artery disease involving sitka coronary artery of sitka heart without angina pectoris Cellulitis of right lower leg Hyperlipidemia, unspecified hyperlipidemia type Peripheral arterial disease with history of revascularization ([facility]/HCC) Ischemic cardiomyopathy Other specified forms of chronic ischemic heart disease Left anterior fascicular block (LAFB) documented in this encounter [facility] Discharge instructions* Attachments The following attachments cannot be sent through Care Everywhere. * Preventing Sepsis After You Leave the Hospital: Video (Prydeinig) * Joint Aspiration: General Info (Prydeinig) documented in this encounterPaladin HealthcareResaint luke[facility] for referral (narrative)No reason for referral information availableWSt. Francis Hospital Work Phone: Summary Purpose Family History No [...] 23, 2024 4:04pm History of myocardial infarction [facility] 2024 4:04pm History of throat cancer October [...] 23, 2024 4:04pm History of myocardial infarction [facility] 2024 4:04pm History of throat cancer October [...] right knee Procedures Prashanth Fong, DO [address] [place] [address] [facility] [address] [address] [place] [address] Referral ID Status Reason Start Date Expiration Date Visits Re quested Visits Authorized [id number] 1 1 Reason Comments Toe Injury Left foot pain, ariel ent skinned his left foot great toe. Was given cephalexin for injury. Patient with bilateral leg swelling and discoloration. Patient with CHF. Specialty Diagnoses / Procedures Referred By Dante t Referred To Contact Diagnoses Acute congestive heart failure, unspecified heart failure type (CMS/HCC) Procedures Sabrina Parker, DO [address] [place] [address] [facility] [address] [place] [address] Referral ID Status Reason Start Date Expiration Date Visits Re quested Visits Authorized [id number] 1 1 Reason Comments Hospital Follow-up Pt would like to dis cuss changes with medication as he believes it has been working. He is currently down 19 lbs. Care Teams (unrecognized sec tion and content) Horse Racing Analyst Relationship Specialty Start Date End Date No, Physician [facility] PCP - General 02/08/22 Horse Racing Analyst Relationship Specialty Start Date End Date Physician, No Pcp PCP - General 01/05/23 Horse Racing Analyst Relationship Specialty Start Date End Date Alisia Rees MD [address] [place] [address] PCP - General 01/06/23 Team Status: Active Member Role Status Dates Alisia Rees Primary Care Provider Active Team Status: Inactive Member Role Status Dates Dr. Nathen Gonzalez DPM Attending Provider Active Gonzalez Gutierrez CNP Referring Provider Active Eri Crump MD Primary Care Provider Active Horse Racing Analyst Relationship Specialty Start Date End Date Alisia Rees MD [address] [place] [address] PCP - General 01/06/23 Horse Racing Analyst Relationship Specialty Start Date End Date Alisia Rees MD [address] [place] [address] PCP - General 01/06/23 Team [...] Status: Inactive Member Role/Relationship Status Dates Dr. Nathen Gonzalez [...] section and content) DATE CREATED AUTHOR 02/13/2022 [facility] DATE CREATED AUTHOR AUTHOR'S ORGANIZ ATION 12/24/2022 [facility] DATE CREATED AUTHOR AUTHOR'S ORGANIZ ATION 11/01/2023 [facility] DATE CREATED AUTHOR AUTHOR'S ORGANIZ ATION 11/22/2023 [facility] DATE CREATED AUTHOR AUTHOR'S ORGANIZ ATION 11/27/2024 [facility] Ordered Prescriptions (unrec ognized section and [...] at 0900 0926 (Given - Provider: Wilfrid Malcolm RN) 0859 (Given - Provider: Aide Nieves [...] Malcolm RN) 0859 (Given - Provider: Aide Nieves [...] Patient not available - Comment: 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 [facility], [facility]. provides no warranty or guarantee of the accuracy or completeness of information in this document.
--- NOTE | 2024-11-27 12:50 | STRESSREP ---
Stress Test Report Pharmacologic myocardial perfusion stress test. 79-year-old man with a history of preop evaluation. Resting EKG demonstrates sinus bradycardia with a rate of 56 bpm. Resting blood pressure is 152/98 mmHg. 0.4 mg of regadenoson was infused per usual protocol followed by rapid intravenous saline flush injection. Continuous EKG monitoring was performed. The maximum heart rate was 68 bpm which was 47% of max impacted heart rate the maximum workload was 1 metabolic equivalent. At rest there were no ST or T wave changes noted to suggest ischemia and at peak infusion nonspecific ST changes were noted which did not meet the criteria for ischemia. No clinical angina is noted. The final blood pressure was 150/90 mmHg. Myocardial perfusion protocol. 11.9 mCi of technetium 99m sestamibi was injected at rest. 0.4 mg of regadenoson was infused per usual protocol. At peak infusion 33.3 mCi of technetium 99m sestamibi was injected stress images were obtained stress and rest images were reconstructed and compared in the short axis vertical long and horizontal long axis. Gated images were also obtained. Perfusion SPECT analysis: Review of the stress images demonstrate normal uptake of tracer noted in all areas of the myocardium except for the basal inferior wall and the apex with reduced perfusion. The rest images demonstrate a similar perfusion pattern. The above is suggestive of a previous basal inferior infarct, and apical infarct. No reversibility is noted suggest ischemia. There is also mildly reduced perfusion noted in the mid inferior wall on the stress and rest images. The above is suggestive of a previous inferior infarct. Gated SPECT analysis: The gated ejection fraction is 38%. Conclusion: Normal pharmacologic myocardial perfusion stress test. Moderately reduced ejection fraction. 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
== END | disposition home or self-care (01) ==
LOC: CVS 06:39
PROVIDERS: PCP Family Medicine Geriatric Medicine; Referring Provider Internal Medicine Cardiovascular Disease; Visit Provider Internal Medicine Cardiovascular Disease
DX: Z01.810 Encounter for preprocedural cardiovascular examination (principal); I50.9 Heart failure, unspecified; I11.0 Hypertensive heart disease with heart failure; R00.1 Bradycardia, unspecified; I25.10 Atherosclerotic heart disease of native coronary artery without angina pectoris; I25.2 Old myocardial infarction; E78.5 Hyperlipidemia, unspecified; I25.5 Ischemic cardiomyopathy
CPT/HCPCS: 78452; 93017; A9500; A4216; J2785

== ENCOUNTER 2024-12-10 08:45 | Outpatient (RCR) | payer MEDICARE, OTHER, SELFPAY ==
[2024-11-12 08:48] VITALS: BP 178/95; PULSE 59; RESP 14; TEMP 36.6
--- NOTE | 2024-11-12 12:41 | PCM.WC.PN ---
History of Present Illness Date of Service: 11/12/24 Chief Complaint: Diabetic ulceration of the left great toe History of Wound: The patient is seen on behalf of Dr. Nathen Gonzalez, Podiatric specialist, who is the patient's regular Wound Center provider. Patient's history has been previously documented by Dr. Gonzalez. He is under treatment for an ulceration of the plantar aspect of the left great toe. He is a known diabetic, and has a history of myocardial infarction and congestive heart failure. He denies a history of cerebrovascular accident, pulmonary disease, renal disease, thyroid disease, and hyperlipidemia. The patient is not currently a smoker, but formerly smoked 1 pack of cigarettes per day for approximately 45 years. 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 He has a history of peripheral arterial occlusive disease, and indicates that 2 vascular stents have been placed in his right lower extremity, and 1 in his left lower extremity. The patient is ambulatory, but suffers from classic symptoms of intermittent claudication at short distances of ambulation. With 2 blocks of ambulation, the patient experiences calf pain, which is typically relieved by rest. Current management involves the use of Betadine topically to his left great toe ulceration. Progress of Wound: slow improving full-thickness wound to the left hallux with evidence of new subfifth metatarsal full-thickness wound to the right foot. Subjective Subjective Patient is a 79-year-old diabetic male presenting to wound care center today follow-up evaluation of full-thickness wound to the left hallux with a new wound to the subfifth metatarsal head of the right foot. Patient has been treating the right foot himself is dealing with this full-thickness wound now for the past few months to 1 year per his words. He has been doing dressing changes to the left foot without improvement. He admits the wound is bigger. He is wearing cowboy boots today that are causing too much pressure on the amputation site of his left great toe causing the wound to breakdown more. His blood sugars well-controlled. He denies any trauma. Denies constitutional symptoms. No other pedal complaints at this time. Objective Data Objective Data Vital Signs: Vital Signs Temp Pulse Resp BP 97.8 F 59 L 14 178/95 H 11/12/24 08:48 11/12/24 08:48 11/12/24 08:48 11/12/24 08:48 Physical Exam Narrative Vascular: DP and PT pulses palpable. CFT brisk. No erythema or proximal streaking. Skin temperature is warm to warm with no focal increase. Neurologic: Light touch is intact. Protective sensation is absent. 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 Full-thickness wound to the plantar aspect left hallux measuring 1.3 x 1.3 x 0.2 cm. Wound base is fibrogranular in nature with no concern for infection. There is evidence of a new full-thickness wound to the subfifth metatarsal head of the right foot measuring 0.6 x 0.6 x 0.1 cm. Wound base is granular with no sign of infection. Excisional debridement down to including subcutaneous tissue with number 3 mm dermal curette to the full-thickness wound to plantar aspect of left hallux done without incident. Predebridement measurement was 1.0 x 1.0 x 0.1 cm. Postdebridement measurement is 1.3 x 1.3 x 0.2 cm. Excisional debridement down to including subcutaneous tissue with a number 3 mm dermal curette to the full-thickness wound to the plantar subfifth metatarsal head of the right foot done without incident. Predebridement measurement was 0.3 x 0.3 x 0.1 cm. Postdebridement measurement is 0.6 x 0.6 x 0.1 cm. Musculoskeletal: Decreased range of motion to the first metatarsal phalangeal joint to the left foot. No pain on palpation to the full-thickness wound to plantar aspect of the left great toe or right sub5th met head. No pain with calf pressure. Debridement Note Debridement Note Debridement Free Text: Excisional debridement down to including subcutaneous tissue with number 3 mm dermal curette to the full-thickness wound to plantar aspect of left hallux done without incident. Predebridement measurement was 1.0 x 1.0 x 0.1 cm. Postdebridement measurement is 1.3 x 1.3 x 0.2 cm. Excisional debridement down to including subcutaneous tissue with a number 3 mm dermal curette to the full-thickness wound to the plantar subfifth metatarsal head of the right foot done without incident. Predebridement measurement was 0.3 x 0.3 x 0.1 cm. Postdebridement measurement is 0.6 x 0.6 x 0.1 cm. Post-Debridement Measurements and Additional Note: Post-Debridement Measurements/Treatment WC - Nurse 1 - General Ulcer Assessment Start: 11/12/24 08:48 Freq: Status: Active Protocol: YOUNG Activity Type Activity Date Activity User E-sign Co-sign Detail Recorded Client Recorded Date Recorded By Document 11/12/24 08:48 ML [id number] 11/12/24 08:58 ML 11/12/24 08:48 WC - Today's Visit Information Type of service Follow-up Visit (Physician/PROPERTY SPECIALIST ) Arrival Mode Ambulatory Vital Signs Temperature (97.8 F-99.1 F) 97.8 F Temperature Source Temporal Pulse Rate (60-100) 59 L Pulse Location Monitor Respiratory Rate (12-18) 14 Respiratory rate source Observation Blood Pressure (90/60-120/80) 178/95 H Blood Pressure Mean (mm Hg) 122 Source Monitor Position Sitting Blood Pressure Location Left Arm History Since Last Visit- (Skip if this is Patient's initial visit) Have you changed medications since your No last visit? Any new allergies or adverse reactions No Had a fall/change in ADL's that may No increase risk of falls Have you been in the hospital since your No last visit? Has dressing in place as prescribed Yes Has compression in place as prescribed N/A Has offloadiing in place as prescribed N/A Experienced any changes in pain level or No management Pain Scale: 0-10 Numeric Is Patient Pain Free? Yes STEVEN - Nurse 1 - General Ulcer Measurement Start: 11/12/24 08:48 Freq: Status: Active Protocol: Activity Type Activity Date Activity User E-sign Co-sign Detail Recorded Client Recorded Date Recorded By Document 11/12/24 08:48 ML [id number] 11/12/24 08:58 ML 11/12/24 08:48 Wound Center Nurse 1 #2 L Grt Toe Plantar -Current Size (cm) - Length 0.7 -Current Size (cm) - Width 1 -Current Size (cm) - Depth 0.3 -Total Square Cm 0.7 -Circular Undermining Yes -Exudate Amt Medium -Exudate Type Serosanguineous -Wound Margin Distinct, Outline Attached -Granulation Amt Medium (34-66%) -Slough/Fibrin Yes -Necrosis Amt Medium (34-66%) -Necrotic Tissue Type Adherent Slough -Texture (Pat-wound Skin Appearance) Assessed -Moisture (Pat-wound Skin Appearance) Assessed -Color (Pat-wound Skin Appearance) Assessed -Temperature (Pat-wound Skin No Abnormality Appearance) (Pt Warm) -Tenderness on Palpation (Pat-wound No Skin Appearance) -Ulcer Cleansing Rinsed/ Irrigated with Saline -Foul Odor after Cleansing No -Anesthetic Used 5% Lidocaine Gel Right lateral plantar -Current Size (cm) - Length 0.1 -Current Size (cm) - Width 0.1 -Current Size (cm) - Depth 0.1 -Total Square Cm 0.01 -Exudate Amt Small -Granulation Amt Small (1-33%) -Slough/Fibrin Yes -Necrosis Amt Small (1-33%) -Necrotic Tissue Type Adherent Slough -Texture (Pat-wound Skin Appearance) Assessed -Moisture (Pat-wound Skin Appearance) Assessed -Color (Pat-wound Skin Appearance) Assessed -Tenderness on Palpation (Pat-wound No Skin Appearance) -Ulcer Cleansing Rinsed/ Irrigated with Saline -Foul Odor after Cleansing No -Anesthetic Used 4% Lidocaine Solution WC - Nurse 2 - General Ulcer CM Notes Start: 11/12/24 08:48 Freq: Status: Active Protocol: Activity Type Activity Date Activity User E-sign Co-sign Detail Recorded Client Recorded Date Recorded By Document 11/12/24 09:08 JEANNA [id number] 11/12/24 09:13 JEANNA 11/12/24 09:08 Wound Center Nurse 2 #2 L Grt Toe Plantar -Time 09:08 -Correct Patient Yes -Correct Side, Site, Position Yes -Correct Procedure Yes -Procedure Performed Yes -Type of Procedure Debridement -Clinical Debridement Subcutaneous -Tissue Removed Subcutaneous -Post Debridement (cm) - Length 1.3 -Post Debridement (cm) - Width 1.3 -Post Debridement (cm) - Depth 0.2 -Total Square (Post) (cm) 1.69 -Area of Debridement (cm) - Length 1.3 -Area of Debridement (cm) - Width 1.3 -Total Square (Area) (cm) 1.69 -Tunneling No -Undermining/Tunneling No -Circular Undermining No -Wound/Ulcer Outcome Not Healed -Ulcer Cleansing Rinsed/ Irrigated with Saline -Foul Odor after Cleansing No -Bioengineered Tissue No -Bleeding Controlled with Pressure -Treatment Response Procedure Tolerated Well -Offloading No -Debridement - Subq, 1st 20sq cm Yes Right lateral plantar -Time 09:09 -Correct Patient Yes -Correct Side, Site, Position Yes -Correct Procedure Yes -Procedure Performed Yes -Type of Procedure Debridement -Clinical Debridement Subcutaneous -Tissue Removed Subcutaneous -Post Debridement (cm) - Length 0.6 -Post Debridement (cm) - Width 0.6 -Post Debridement (cm) - Depth 0.1 -Total Square (Post) (cm) 0.36 -Area of Debridement (cm) - Length 0.6 -Area of Debridement (cm) - Width 0.6 -Total Square (Area) (cm) 0.36 -Tunneling No -Undermining/Tunneling No -Circular Undermining No -Wound/Ulcer Outcome Not Healed -Ulcer Cleansing Rinsed/ Irrigated with Saline -Foul Odor after Cleansing No -Bioengineered Tissue No -Bleeding Controlled with Pressure -Treatment Response Procedure Tolerated Well -Offloading No -Debridement - Subq, 1st 20sq cm No Pain Scale: 0-10 Numeric Is Patient Pain Free? Yes WC - Nurse 3 - General Ulcer D/C NN Start: 11/12/24 08:48 Freq: Status: Active Protocol: Activity Type Activity Date Activity User E-sign Co-sign Detail Recorded Client Recorded Date Recorded By Document 11/12/24 09:22 [place] [id number] 11/12/24 09:33 [place] 11/12/24 09:22 Wound Care Center Nurse 3 #2 L Grt Toe Plantar -Primary Dressing Applied AMD Dressing 4x4 -Primary Dressing Covered/Secured with Dry Gauze & Roll Gauze, Secured with Tape -AMD Dressing 4x4 1 Right lateral plantar -Other Dressing betadine -Primary Dressing Covered/Secured with Dry Gauze, Secured with Tape Pain Scale: 0-10 Numeric Is Patient Pain Free? Yes Assessment/Plan Assessment/Plan (1) Non-pressure chronic ulcer of other part of left foot with fat layer exposed: CODE(S): L97.522 - Non-pressure chronic ulcer of other part of left foot with fat layer exposed PLAN: Patient was examined and evaluated. All findings were discussed with the patient. All questions were answered to the patient's satisfaction. Excisional debridement down to including subcutaneous tissue with number 3 mm dermal curette to the full-thickness wound to plantar aspect of left hallux done without incident. Predebridement measurement was 1.0 x 1.0 x 0.1 cm. Postdebridement measurement is 1.3 x 1.3 x 0.2 cm. Excisional debridement down to including subcutaneous tissue with a number 3 mm dermal curette to the full-thickness wound to the plantar subfifth metatarsal head of the right foot done without incident. Predebridement measurement was 0.3 x 0.3 x 0.1 cm. Postdebridement measurement is 0.6 x 0.6 x 0.1 cm. The bilateral lower extremities are white paint and patted dry. AMD pad was applied to the plantar aspect of the left hallux wrapped with dry sterile dressing and compression wrap. The right foot was dressed with Betadine paint sterile Band-Aid and compression wrap. Patient will change daily. Order was dispensed the patient to get right foot x-rays as we need to move forward with a surgical procedure to the fifth metatarsal of the right foot. Educated the patient that we will need to move forward with a amputation of the remaining proximal phalanx of the left foot due to the decreased range of motion of the first metatarsophalangeal joint which he was understanding of. I told him that if we continue to try to offload the area as well as pad and protect we will most likely not be able to heal the wound due to the patient's biomechanics and he was understanding of this. With the right foot full-thickness wound we will move forward with dorsiflexor he osteotomy of the fifth metatarsal to offload internally the fifth met head which she was understanding of. Patient will continue strict blood sugar control. Patient will follow-up in 1 week (2) Acute painful diabetic polyneuropathy: CODE(S): E11.42 - Type 2 diabetes mellitus with diabetic polyneuropathy (3) Non-pressure chronic ulcer of other part of right foot with fat layer exposed: CODE(S): L97.512 - Non-pressure chronic ulcer of other part of right foot with fat layer exposed
--- NOTE | 2024-11-13 09:18 | WC ---
PHOTO-L PLANTAR HALLUX 11/12/24
--- NOTE | 2024-11-13 09:21 | WC ---
PHOTO-RIGHT LAT PLANTAR 11/12/24
--- NOTE | 2024-11-14 09:49 | RAD_ITS ---
PROCEDURE: FOOT MIN 3 VIEWS 11/14/2024 REASON FOR EXAM: R FOOT ULCER TECHNIQUE: Procedure Code: RADFO Modality: DX Procedure: FOOT MIN 3 VIEWS Laterality: Right foot COMPARISON: None FINDINGS: Bones: No bony destruction is seen. There is flattening of the head of the 2nd metatarsal suggestive of old Freiberg's fracture. 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 No fracture is present. Soft tissues: Soft tissue swelling. Other: RAD/Foot min 3 Views IMPRESSION: No acute abnormality is seen. Reading Location: [id number]
[2024-11-19 08:22] VITALS: BP 184/104; PULSE 74; RESP 16; TEMP 37.3
--- NOTE | 2024-11-19 12:22 | PN.PCM_ITS ---
History of Present Illness Date of Service: 11/19/24 Chief Complaint: Diabetic ulceration of the left great toe History of Wound: The patient is seen on behalf of Dr. Nathen Gonzalez, Podiatric specialist, who is the patient's regular Wound Center provider. Patient's history has been previously documented by Dr. Gonzalez. He is under treatment for an ulceration of the plantar aspect of the left great toe. He is a known diabetic, and has a history of myocardial infarction and congestive heart failure. He denies a history of cerebrovascular accident, pulmonary disease, renal disease, thyroid disease, and hyperlipidemia. The patient is not currently a smoker, but formerly smoked 1 pack of cigarettes per day for approximately 45 years. 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 He has a history of peripheral arterial occlusive disease, and indicates that 2 vascular stents have been placed in his right lower extremity, and 1 in his left lower extremity. The patient is ambulatory, but suffers from classic symptoms of i ntermittent claudication at short distances of ambulation. With 2 blocks of ambulation, the patient experiences calf pain, which is typically relieved by rest. Current management involves the use of Betadine topically to his left great toe ulceration. Progress of Wound: slow improving full-thickness wound to the left hallux with evidence of new subfifth metatarsal full-thickness wound to the right foot. Subjective Subjective Patient is a 79-year-old diabetic male presenting to wound center today for follow-up evaluation of full-thickness wound to the subfifth metatarsal head of the right foot as well as full-thickness wound to plantar aspect of the left hallux stump. He has been compliant with dressing changes. He is not wearing cowboy boots and wearing more supportive shoes that are helping. His blood sugars well-controlled. He denies trauma. Denies constitutional symptoms. No other pedal complaints at this time. Objective Data Objective Data Vital Signs: Vital Signs Temp Pulse Resp BP O2 Del Method 99.2 F H 74 16 184/104 H Room Air 11/19/24 08:22 11/19/24 08:22 11/19/24 08:22 11/19/24 08:22 11/19/24 08:22 Oxygen Delivery Method Room Air Physical Exam Narrative Vascular: DP and PT pulses palpable. CFT brisk. No erythema or proximal streaking. Skin temperature is warm to warm with no focal increase. Neurologic: Light touch is intact. Protective sensation is absent. Dermatologic: Full-thickness wound to the plantar aspect left hallux measuring 1.2 x 1.0 x 0.2 cm. Wound base is granular in nature with no concern for infection. Full-thickness wound to the subfifth metatarsal head of the right foot measuring 0.4 x 0.5 x 0.2 cm. Wound base is granular with no sign of infection. Excisional debridement down to including subcutaneous tissue with number 3 mm dermal curette to the full-thickness wound to plantar aspect of left hallux done without incident. Predebridement measurement was 1.0 x 0.9 x 0.1 cm. Postdebridement measurement is 1.2 x 1.0 x 0.2 cm. Excisional debridement down to including subcutaneous tissue with a number 3 mm dermal curette to the full-thickness wound to the plantar subfifth metatarsal head of the right foot done without incident. Predebridement measurement was callus. Postdebridement measurement is 4.5 x 0.5 x 0.2 cm. Musculoskeletal: Decreased range of motion to the first metatarsal phalangeal joint to the left foot. No pain on palpation to the full-thickness wound to plantar aspect of the left great toe or right sub5th met head. No pain with calf pressure. Debridement Note Debridement Note Debridement Free Text: Excisional debridement down to including subcutaneous tissue with number 3 mm dermal curette to the full-thickness wound to plantar aspect of left hallux done without incident. Predebridement measurement was 1.0 x 0.9 x 0.1 cm. Postdebridement measurement is 1.2 x 1.0 x 0.2 cm. Excisional debridement down to including subcutaneous tissue with a number 3 mm dermal curette to the full-thickness wound to the plantar subfifth metatarsal head of the right foot done without incident. Predebridement measurement was callus. Postdebridement measurement is 4.5 x 0.5 x 0.2 cm. 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 (Physician/CLAY MINE CUTTING MACHINE OPERATOR ) ) Arrival Mode Ambulatory Ambulatory Patient Identification Verified (Name & Yes ) Vital Signs Temperature (97.8 F-99.1 F) 97.8 F 99.2 F H Temperature Source Temporal Temporal Pulse Rate (60-100) 59 L 74 Pulse Location Monitor Monitor Respiratory Rate (12-18) 14 16 Respiratory rate source Observation Observation Oxygen Delivery Method Room Air Blood Pressure (90/60-120/80) 178/95 H 184/104 H Blood Pressure Mean (mm Hg) 122 130 Source Monitor Monitor Position Sitting Sitting Blood Pressure Location Left Arm Left Arm History Since Last Visit- (Skip if this is Patient's initial visit) Have you changed medications since your No No last visit? Any new allergies or adverse reactions No No Had a fall/change in ADL's that may No No increase risk of falls Signs or symptoms of abuse and/or No neglect since last visit Have you been in the hospital since your No No last visit? Has dressing in place as prescribed Yes Yes Has compression in place as prescribed N/A Yes Has offloadiing in place as prescribed N/A Yes Experienced any changes in pain level or No No management Left Footwear Surgical Shoe with pressure relief insole Right Footwear Regular Shoe Pain Scale: 0-10 Numeric Is Patient Pain Free? Yes Yes - Nurse 1 - General Ulcer Measurement Start: 11/12/24 08:48 Freq: Status: Active Protocol: Activity Type Activity Date Activity User E-sign Co-sign Detail Recorded Client Recorded Date Recorded By Document 11/12/24 08:48 ML [id number] 11/12/24 08:58 ML Document 11/19/24 08:22 [id number] 11/19/24 08:25 11/12/24 11/19/24 08:48 08:22 Wound Center Nurse 1 #2 L Grt Toe Plantar -Current Size (cm) - Length 0.7 0.9 -Current Size (cm) - Width 1 1.0 -Current Size (cm) - Depth 0.3 0.1 -Total Square Cm 0.7 0.90 -Date of Last Picture (Recall this 11/19/24 field) -Photo Taken Yes -Epithelialization None Present -Tunneling No -Undermining/Tunneling No -Circular Undermining Yes No -Exudate Amt Medium Small -Exudate Type Serosanguineous Yellow/Green -Wound Margin Distinct, Distinct, Outline Outline Attached Attached -Granulation Amt Medium (34-66%) Small (1-33%) -Granulation Quality Pale,Iron Post -Slough/Fibrin Yes No -Necrosis Amt Medium (34-66%) -Necrotic Tissue Type Adherent Slough -Texture (Pat-wound Skin Appearance) Assessed Assessed -Moisture (Pat-wound Skin Appearance) Assessed Assessed -Color (Pat-wound Skin Appearance) Assessed Assessed -Temperature (Pat-wound Skin No Abnormality No Abnormality Appearance) (Pt Warm) (Pt Warm) -Tenderness on Palpation (Pat-wound No No Skin Appearance) -Ulcer Cleansing Rinsed/ Rinsed/ Irrigated with Irrigated with Saline Saline -Foul Odor after Cleansing No No -Anesthetic Used 5% Lidocaine 5% Lidocaine Gel Gel Right lateral plantar -Current Size (cm) - Length 0.1 0.4 -Current Size (cm) - Width 0.1 0.4 -Current Size (cm) - Depth 0.1 0.2 -Total Square Cm 0.01 0.16 -Date of Last Picture (Recall this 11/19/24 field) -Photo Taken Yes -Epithelialization Small 1-33% -Tunneling No -Undermining/Tunneling No -Circular Undermining No -Exudate Amt Small Small -Exudate Type Yellow/Green -Wound Margin Distinct, Outline Attached -Granulation Amt Small (1-33%) Small (1-33%) -Granulation Quality Iron Post -Slough/Fibrin Yes No -Necrosis Amt Small (1-33%) None Present (0 %) -Necrotic Tissue Type Adherent Slough -Texture (Pat-wound Skin Appearance) Assessed No Abnormality, Assessed -Moisture (Pat-wound Skin Appearance) Assessed No Abnormality, Assessed -Color (Pat-wound Skin Appearance) Assessed No Abnormality, Assessed -Temperature (Pat-wound Skin No Abnormality Appearance) (Pt Warm) -Tenderness on Palpation (Pat-wound No No Skin Appearance) -Ulcer Cleansing Rinsed/ Rinsed/ Irrigated with Irrigated with Saline Saline -Foul Odor after Cleansing No No -Anesthetic Used 4% Lidocaine 5% Lidocaine Solution Gel Lower Limb Edema Present No Right Calf (cm) 35 Right Ankle (cm) 23.5 Left Calf (cm) 34 Left Ankle (cm) 23 WC - Nurse 2 - General Ulcer CM Notes Start: 11/12/24 08:48 Freq: Status: Active Protocol: Activity Type Activity Date Activity User E-sign Co-sign Detail Recorded Client Recorded Date Recorded By Document 11/12/24 09:08 [id number] 11/12/24 09:13 JF Document 11/19/24 08:32 JF [id number] 11/19/24 08:34 JF 11/12/24 11/19/24 09:08 08:32 Wound Center Nurse 2 #2 L Grt Toe Plantar -Time 09:08 08:32 -Correct Patient Yes Yes -Correct Side, Site, Position Yes Yes -Correct Procedure Yes Yes -Procedure Performed Yes Yes -Type of Procedure Debridement Debridement -Clinical Debridement Subcutaneous Subcutaneous -Tissue Removed Subcutaneous Subcutaneous -Post Debridement (cm) - Length 1.3 1.2 -Post Debridement (cm) - Width 1.3 1.0 -Post Debridement (cm) - Depth 0.2 0.2 -Total Square (Post) (cm) 1.69 1.20 -Area of Debridement (cm) - Length 1.3 1.2 -Area of Debridement (cm) - Width 1.3 1.0 -Total Square (Area) (cm) 1.69 1.20 -Tunneling No No -Undermining/Tunneling No No -Circular Undermining No No -Wound/Ulcer Outcome Not Healed Not Healed -Ulcer Cleansing Rinsed/ Rinsed/ Irrigated with Irrigated with Saline Saline -Foul Odor after Cleansing No No -Bioengineered Tissue No No -Bleeding Controlled with Pressure Pressure -Treatment Response Procedure Procedure Tolerated Well Tolerated Well -Offloading No No -Debridement - Subq, 1st 20sq cm Yes No Right lateral plantar -Time 09:09 08:32 -Correct Patient Yes Yes -Correct Side, Site, Position Yes Yes -Correct Procedure Yes Yes -Procedure Performed Yes Yes -Type of Procedure Debridement Debridement -Clinical Debridement Subcutaneous Subcutaneous -Tissue Removed Subcutaneous Subcutaneous -Post Debridement (cm) - Length 0.6 0.4 -Post Debridement (cm) - Width 0.6 0.5 -Post Debridement (cm) - Depth 0.1 0.2 -Total Square (Post) (cm) 0.36 0.20 -Area of Debridement (cm) - Length 0.6 0.4 -Area of Debridement (cm) - Width 0.6 0.5 -Total Square (Area) (cm) 0.36 0.20 -Tunneling No No -Undermining/Tunneling No No -Circular Undermining No No -Wound/Ulcer Outcome Not Healed Not Healed -Ulcer Cleansing Rinsed/ Rinsed/ Irrigated with Irrigated with Saline Saline -Foul Odor after Cleansing No No -Bioengineered Tissue No No -Bleeding Controlled with Pressure Pressure -Treatment Response Procedure Procedure Tolerated Well Tolerated Well -Offloading No No -Debridement - Subq, 1st 20sq cm No Yes Pain Scale: 0-10 Numeric Is Patient Pain Free? Yes Yes - Nurse 3 - General Ulcer D/C NN Start: 11/12/24 08:48 Freq: Status: Active Protocol: Activity Type Activity Date Activity User E-sign Co-sign Detail Recorded Client Recorded Date Recorded By Document 11/12/24 09:22 IN [id number] 11/12/24 09:33 IN Document 11/19/24 08:49 [id number] 11/19/24 08:50 11/12/24 11/19/24 09:22 08:49 Wound Care Center Nurse 3 #2 L Grt Toe Plantar -Ulcer Cleansing Not Cleansed -Foul Odor after Cleansing No -Primary Dressing Applied AMD Dressing AMD Dressing 4x4 4x4 -Primary Dressing Covered/Secured with Dry Gauze & Dry Gauze, Roll Gauze, Secured with Secured with Tape Tape -AMD Dressing 4x4 1 1 Right lateral plantar -Ulcer Cleansing Not Cleansed -Foul Odor after Cleansing No -Other Dressing betadine betadine swab -Primary Dressing Covered/Secured with Dry Gauze, Dry Gauze, Secured with Secured with Tape Tape Pain Scale: 0-10 Numeric Is Patient Pain Free? Yes Yes - Visit Discharge Discharge Condition Stable Ambulatory Status Ambulatory Transportation Private Auto Assessment/Plan Assessment/Plan (1) Non-pressure chronic ulcer of other part of left foot with fat layer exposed: CODE(S): L97.522 - Non-pressure chronic ulcer of other part of left foot with fat layer exposed PLAN: Patient was examined and evaluated. All findings were discussed with the patient. All questions were answered to the patient's satisfaction. Excisional debridement down to including subcutaneous tissue with number 3 mm dermal curette to the full-thickness wound to plantar aspect of left hallux done without incident. Predebridement measurement was 1.0 x 0.9 x 0.1 cm. Postdebridement measurement is 1.2 x 1.0 x 0.2 cm. Excisional debridement down to including subcutaneous tissue with a number 3 mm dermal curette to the full-thickness wound to the plantar subfifth metatarsal head of the right foot done without incident. Predebridement measurement was callus. Postdebridement measurement is 4.5 x 0.5 x 0.2 cm. The bilateral lower extremity were cleaned and patted dry. AMD pad was applied to the left hallux and Betadine paint was applied to the right lower extremity. All wounds were dressed with dry sterile dressing and light compression was donned to the right lower extremity. Today in office we went through patient surgical paperwork and discussed the procedure and all risk and benefits discussed with the patient in great detail. Chart review and consents were signed. Patient will be planning for surgical intervention 12/19/2024. I did state to the patient that he will follow-up weekly at the wound center if there is any concern for worsening infection or wounds the patient will be admitted under my service at the hospital to move forward with surgical intervention to the bilateral lower extremity. Patient was understanding of this. Patient will follow-up in 1 week (2) Acute painful diabetic polyneuropathy: CODE(S): E11.42 - Type 2 diabetes mellitus with diabetic polyneuropathy (3) Non-pressure chronic ulcer of other part of right foot with fat layer exposed: CODE(S): L97.512 - Non-pressure chronic ulcer of other part of right foot with fat layer exposed
--- NOTE | 2024-11-20 09:16 | WC ---
PHOTO-LEFT HALLUX 11/19/24
--- NOTE | 2024-11-20 09:19 | WC ---
PHOTO-RIGHT LATERAL PLANTAR 11/19/24
[2024-11-26 08:32] VITALS: BP 136/75; PULSE 66; RESP 18; TEMP 36.7
--- NOTE | 2024-11-26 08:50 | PCM.WC.PN ---
History of Present Illness Date of Service: 11/26/24 Chief Complaint: Diabetic ulceration of the left great toe History of Wound: The patient is seen on behalf of Dr. Nathen Gonzalez, Podiatric specialist, who is the patient's regular Wound Center provider. Patient's history has been previously documented by Dr. Gonzalez. He is under treatment for an ulceration of the plantar aspect of the left great toe. He is a known diabetic, and has a history of myocardial infarction and congestive heart failure. He denies a history of cerebrovascular accident, pulmonary disease, renal disease, thyroid disease, and hyperlipidemia. The patient is not currently a smoker, but formerly smoked 1 pack of cigarettes per day for approximately 45 years. 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 He has a history of peripheral arterial occlusive disease, and indicates that 2 vascular stents have been placed in his right lower extremity, and 1 in his left lower extremity. The patient is ambulatory, but suffers from classic symptoms of intermittent claudication at short distances of ambulation. With 2 blocks of ambulation, the patient experiences calf pain, which is typically relieved by rest. Current management involves the use of Betadine topically to his left great toe ulceration. Progress of Wound: slow improving full-thickness wound to the left hallux with evidence of new subfifth metatarsal full-thickness wound to the right foot. Subjective Subjective Patient is a 79-year-old diabetic male presenting to wound care center follow-up evaluation of subfifth metatarsal full-thickness wound to the right and full-thickness wound to the subhallux amputation to the left. Patient has been compliant with dressing changes. He admits improvement to the wound. He states he has better discomfort now that he has changed back to a surgical shoe on the left and regular shoe on the right. Blood sugars well-controlled. He is anticipating surgery next Sunday. He has no questions at this time. Denies trauma. Denies constitutional symptoms. No other pedal complaints at this time. Objective Data Objective Data Vital Signs: Vital Signs Temp Pulse Resp BP O2 Del Method 98.1 F 66 18 136/75 H Room Air 11/26/24 08:32 11/26/24 08:32 11/26/24 08:32 11/26/24 08:32 11/26/24 08:32 Oxygen Delivery Method Room Air Physical Exam Narrative Vascular: DP and PT pulses palpable. CFT brisk. No erythema or proximal streaking. Skin temperature is warm to warm with no focal increase. Neurologic: Light touch is intact. Protective sensation is absent. Dermatologic: Full-thickness wound to the plantar aspect left hallux measuring 1.0 x 1.2 x 0.1 cm. Wound base is granular in nature with no concern for infection. Full-thickness wound to the subfifth metatarsal head of the right foot measuring 0.3 x 0.4 x 0.1 cm. Wound base is granular with no sign of infection. Excisional debridement down to including subcutaneous tissue with number 3 mm dermal curette to the full-thickness wound to plantar aspect of left hallux done without incident. Predebridement measurement was 0.8 x 1.0 x 0.1 cm. Postdebridement measurement is 1.0 x 1.2 x 0.1 cm. Excisional debridement down to including subcutaneous tissue with a number 3 mm dermal curette to the full-thickness wound to the plantar subfifth metatarsal head of the right foot done without incident. Predebridement measurement was callus. Postdebridement measurement is 0.3 x 0.4 x 0.1 cm. Musculoskeletal: Decreased range of motion to the first metatarsal phalangeal joint to the left foot. No pain on palpation to the full-thickness wound to plantar aspect of the left great toe or right sub5th met head. No pain with calf pressure. Debridement Note Debridement Note Debridement Free Text: Excisional debridement down to including subcutaneous tissue with number 3 mm dermal curette to the full-thickness wound to plantar aspect of left hallux done without incident. Predebridement measurement was 0.8 x 1.0 x 0.1 cm. Postdebridement measurement is 1.0 x 1.2 x 0.1 cm. Excisional debridement down to including subcutaneous tissue with a number 3 mm dermal curette to the full-thickness wound to the plantar subfifth metatarsal head of the right foot done without incident. Predebridement measurement was callus. Postdebridement measurement is 0.3 x 0.4 x 0.1 cm. Post-Debridement Measurements and Additional Note: Post-Debridement Measurements/Treatment STEVEN - Nurse 1 - General Ulcer Assessment Start: 11/12/24 08:48 Freq: Status: Active Protocol: HALEYEXAusten Activity Type Activity Date Activity User E-sign Co-sign Detail Recorded Client Recorded Date Recorded By Document 11/12/24 08:48 ML [id number] 11/12/24 08:58 ML Document 11/19/24 08:22 GM [id number] 11/19/24 08:25 GM Document 11/26/24 08:32 GM [id number] 11/26/24 08:36 GM 11/12/24 11/19/24 11/26/24 08:48 08:22 08:32 - Today's Visit Information Type of service Follow-up Visit Follow-up Visit Follow-up Visit (Physician/FACILITIES MAINTENANCE ASSISTANT (Physician/FACILITIES MAINTENANCE ASSISTANT (Physician/FACILITIES MAINTENANCE ASSISTANT ) ) ) Arrival Mode Ambulatory Ambulatory Ambulatory Transfer Assistance None Patient Identification Verified (Name & Yes Yes ) Vital Signs Temperature (97.8 F-99.1 F) 97.8 F 99.2 F H 98.1 F Temperature Source Temporal Temporal Temporal Pulse Rate (60-100) 59 L 74 66 Pulse Location Monitor Monitor Monitor Respiratory Rate (12-18) 14 16 18 Respiratory rate source Observation Observation Observation Oxygen Delivery Method Room Air Room Air Blood Pressure (90/60-120/80) 178/95 H 184/104 H 136/75 H Blood Pressure Mean (mm Hg) 122 130 95 Source Monitor Monitor Monitor Position Sitting Sitting Sitting Blood Pressure Location Left Arm Left Arm Right Arm History Since Last Visit- (Skip if this is Patient's initial visit) Have you changed medications since your No No No last visit? Any new allergies or adverse reactions No No No Had a fall/change in ADL's that may No No No increase risk of falls Signs or symptoms of abuse and/or No No neglect since last visit Have you been in the hospital since your No No No last visit? Has dressing in place as prescribed Yes Yes Yes Has compression in place as prescribed N/A Yes N/A Has offloadiing in place as prescribed N/A Yes Yes Experienced any changes in pain level or No No management Left Footwear Surgical Shoe Surgical Shoe with pressure with pressure relief insole relief insole Right Footwear Regular Shoe Regular Shoe Pain Scale: 0-10 Numeric Is Patient Pain Free? Yes Yes Yes - Nurse 1 - General Ulcer Measurement Start: 11/12/24 08:48 Freq: Status: Active Protocol: Activity Type Activity Date Activity User E-sign Co-sign Detail Recorded Client Recorded Date Recorded By Document 11/12/24 08:48 ML [id number] 11/12/24 08:58 ML Document 11/19/24 08:22 GM [id number] 11/19/24 08:25 GM Document 11/26/24 08:32 GM [id number] 11/26/24 08:36 GM 11/12/24 11/19/24 11/26/24 08:48 08:22 08:32 Wound Center Nurse 1 #2 L Grt Toe Plantar -Current Size (cm) - Length 0.7 0.9 1.0 -Current Size (cm) - Width 1 1.0 1.2 -Current Size (cm) - Depth 0.3 0.1 0.2 -Total Square Cm 0.7 0.90 1.20 -Date of Last Picture (Recall this 11/19/24 11/26/24 field) -Photo Taken Yes Yes -Epithelialization None Present None Present -Tunneling No No -Undermining/Tunneling No No -Circular Undermining Yes No No -Exudate Amt Medium Small Medium -Exudate Type Serosanguineous Yellow/Green Yellow/Green -Wound Margin Distinct, Distinct, Distinct, Outline Outline Outline Attached Attached Attached -Granulation Amt Medium (34-66%) Small (1-33%) Small (1-33%) -Granulation Quality Pale,[place] -Slough/Fibrin Yes No No -Necrosis Amt Medium (34-66%) None Present (0 %) -Necrotic Tissue Type Adherent Slough -Texture (Pat-wound Skin Appearance) Assessed Assessed Assessed,Callus -Moisture (Pat-wound Skin Appearance) Assessed Assessed No Abnormality, Assessed -Color (Pat-wound Skin Appearance) Assessed Assessed No Abnormality, Assessed -Temperature (Pat-wound Skin No Abnormality No Abnormality No Abnormality Appearance) (Pt Warm) (Pt Warm) (Pt Warm) -Tenderness on Palpation (Pat-wound No No No Skin Appearance) -Ulcer Cleansing Rinsed/ Rinsed/ Soap and Water Irrigated with Irrigated with Saline Saline -Foul Odor after Cleansing No No No -Anesthetic Used 5% Lidocaine 5% Lidocaine 5% Lidocaine Gel Gel Gel Right lateral plantar -Current Size (cm) - Length 0.1 0.4 0.5 -Current Size (cm) - Width 0.1 0.4 0.4 -Current Size (cm) - Depth 0.1 0.2 0.1 -Total Square Cm 0.01 0.16 0.20 -Date of Last Picture (Recall this 11/19/24 11/26/24 field) -Photo Taken Yes Yes -Epithelialization Small 1-33% None Present -Tunneling No No -Undermining/Tunneling No No -Circular Undermining No No -Exudate Amt Small Small Small -Exudate Type Yellow/Green Yellow/Green -Wound Margin Distinct, Distinct, Outline Outline Attached Attached -Granulation Amt Small (1-33%) Small (1-33%) Small (1-33%) -Granulation Quality [place] -Slough/Fibrin Yes No Yes -Necrosis Amt Small (1-33%) None Present (0 Small (1-33%) %) -Necrotic Tissue Type Adherent Slough -Texture (Pat-wound Skin Appearance) Assessed No Abnormality, No Abnormality, Assessed Assessed -Moisture (Pat-wound Skin Appearance) Assessed No Abnormality, No Abnormality, Assessed Assessed -Color (Pat-wound Skin Appearance) Assessed No Abnormality, No Abnormality, Assessed Assessed -Temperature (Pat-wound Skin No Abnormality No Abnormality Appearance) (Pt Warm) (Pt Warm) -Tenderness on Palpation (Pat-wound No No No Skin Appearance) -Ulcer Cleansing Rinsed/ Rinsed/ Rinsed/ Irrigated with Irrigated with Irrigated with Saline Saline Saline -Foul Odor after Cleansing No No No -Anesthetic Used 4% Lidocaine 5% Lidocaine 5% Lidocaine Solution Gel Gel Lower Limb Edema Present No Right Calf (cm) 35 Right Ankle (cm) 23.5 Left Calf (cm) 34 Left Ankle (cm) 23 WC - Nurse 2 - General Ulcer CM Notes Start: 11/12/24 08:48 Freq: Status: Active Protocol: Activity Type Activity Date Activity User E-sign Co-sign Detail Recorded Client Recorded Date Recorded By Document 11/12/24 09:08 JEANNA [id number] 11/12/24 09:13 JF Document 11/19/24 08:32 JF [id number] 11/19/24 08:34 JF Document 11/26/24 08:41 JF [id number] 11/26/24 08:44 JF 11/12/24 11/19/24 11/26/24 09:08 08:32 08:41 Wound Center Nurse 2 #2 L Grt Toe Plantar -Time 09:08 08:32 08:42 -Correct Patient Yes Yes Yes -Correct Side, Site, Position Yes Yes Yes -Correct Procedure Yes Yes Yes -Procedure Performed Yes Yes Yes -Type of Procedure Debridement Debridement Debridement -Clinical Debridement Subcutaneous Subcutaneous Subcutaneous -Tissue Removed Subcutaneous Subcutaneous Subcutaneous -Post Debridement (cm) - Length 1.3 1.2 -Post Debridement (cm) - Width 1.3 1.0 -Post Debridement (cm) - Depth 0.2 0.2 -Total Square (Post) (cm) 1.69 1.20 -Area of Debridement (cm) - Length 1.3 1.2 -Area of Debridement (cm) - Width 1.3 1.0 -Total Square (Area) (cm) 1.69 1.20 -Tunneling No No No -Undermining/Tunneling No No No -Circular Undermining No No No -Wound/Ulcer Outcome Not Healed Not Healed Not Healed -Ulcer Cleansing Rinsed/ Rinsed/ Rinsed/ Irrigated with Irrigated with Irrigated with Saline Saline Saline -Foul Odor after Cleansing No No No -Bioengineered Tissue No No No -Bleeding Controlled with Pressure Pressure Pressure -Treatment Response Procedure Procedure Procedure Tolerated Well Tolerated Well Tolerated Well -Offloading No No Yes -Type of Offloading Surgical Shoe -Debridement - Subq, 1st 20sq cm Yes No No Right lateral plantar -Time 09: 08:32 08:43 -Correct Patient Yes Yes Yes -Correct Side, Site, Position Yes Yes Yes -Correct Procedure Yes Yes Yes -Procedure Performed Yes Yes Yes -Type of Procedure Debridement Debridement Debridement -Clinical Debridement Subcutaneous Subcutaneous Subcutaneous -Tissue Removed Subcutaneous Subcutaneous Subcutaneous -Post Debridement (cm) - Length 0.6 0.4 0.3 -Post Debridement (cm) - Width 0.6 0.5 0.4 -Post Debridement (cm) - Depth 0.1 0.2 0.1 -Total Square (Post) (cm) 0.36 0.20 0.12 -Area of Debridement (cm) - Length 0.6 0.4 0.3 -Area of Debridement (cm) - Width 0.6 0.5 0.4 -Total Square (Area) (cm) 0.36 0.20 0.12 -Tunneling No No No -Undermining/Tunneling No No No -Circular Undermining No No No -Wound/Ulcer Outcome Not Healed Not Healed Not Healed -Ulcer Cleansing Rinsed/ Rinsed/ Rinsed/ Irrigated with Irrigated with Irrigated with Saline Saline Saline -Foul Odor after Cleansing No No No -Bioengineered Tissue No No No -Bleeding Controlled with Pressure Pressure Pressure -Treatment Response Procedure Procedure Procedure Tolerated Well Tolerated Well Tolerated Well -Offloading No No Yes -Type of Offloading Surgical Shoe -Debridement - Subq, 1st 20sq cm No Yes Yes Pain Scale: 0-10 Numeric Is Patient Pain Free? Yes Yes Yes - Nurse 3 - General Ulcer D/C NN Start: 11/12/24 08:48 Freq: Status: Active Protocol: Activity Type Activity Date Activity User E-sign Co-sign Detail Recorded Client Recorded Date Recorded By Document 11/12/24 09:22 MT [id number] 11/12/24 09:33 MT Document 11/19/24 08:49 [id number] 11/19/24 08:50 11/12/24 11/19/24 09:22 08:49 Wound Care Center Nurse 3 #2 L Grt Toe Plantar -Ulcer Cleansing Not Cleansed -Foul Odor after Cleansing No -Primary Dressing Applied AMD Dressing AMD Dressing 4x4 4x4 -Primary Dressing Covered/Secured with Dry Gauze & Dry Gauze, Roll Gauze, Secured with Secured with Tape Tape -AMD Dressing 4x4 1 1 Right lateral plantar -Ulcer Cleansing Not Cleansed -Foul Odor after Cleansing No -Other Dressing betadine betadine swab -Primary Dressing Covered/Secured with Dry Gauze, Dry Gauze, Secured with Secured with Tape Tape Pain Scale: 0-10 Numeric Is Patient Pain Free? Yes Yes - Visit Discharge Discharge Condition Stable Ambulatory Status Ambulatory Transportation Private Auto Assessment/Plan Assessment/Plan (1) Non-pressure chronic ulcer of other part of left foot with fat layer exposed: CODE(S): L97.522 - Non-pressure chronic ulcer of other part of left foot with fat layer exposed PLAN: Patient was examined and evaluated. All findings were discussed with the patient. All questions were answered to the patient's satisfaction. Excisional debridement down to including subcutaneous tissue with number 3 mm dermal curette to the full-thickness wound to plantar aspect of left hallux done without incident. Predebridement measurement was 0.8 x 1.0 x 0.1 cm. Postdebridement measurement is 1.0 x 1.2 x 0.1 cm. Excisional debridement down to including subcutaneous tissue with a number 3 mm dermal curette to the full-thickness wound to the plantar subfifth metatarsal head of the right foot done without incident. Predebridement measurement was callus. Postdebridement measurement is 0.3 x 0.4 x 0.1 cm. The bilateral lower extremities are cleaned and patted dry. The right full-thickness wound was dressed with Betadine paint and sterile Band-Aid. He will change daily. The left hallux full-thickness wound I will be dressed with AMD pad dry sterile dressing and compression wrap. Patient will change every other day. We are planning for surgical intervention next Sunday all risk and benefits were again discussed with the patient great detail. He is understanding of everything it was explained to him. Patient will continue strict blood sugar control. Patient will follow-up in 2 week (2) Acute painful diabetic polyneuropathy: CODE(S): E11.42 - Type 2 diabetes mellitus with diabetic polyneuropathy (3) Non-pressure chronic ulcer of other part of right foot with fat layer exposed: CODE(S): L97.512 - Non-pressure chronic ulcer of other part of right foot with fat layer exposed
--- NOTE | 2024-11-27 09:18 | WC ---
PHOTO-RIGHT HALLUX 11/26/24
--- NOTE | 2024-11-27 09:21 | WC ---
PHOTO-RIGHT LAT FOOT 11/26/24
[2024-12-10 08:23] VITALS: BP 175/92; PULSE 50; RESP 17; TEMP 36.2
--- NOTE | 2024-12-10 10:32 | PN.PCM_ITS ---
History of Present Illness Date of Service: 12/10/24 Chief Complaint: Diabetic ulceration of the left great toe History of Wound: The patient is seen on behalf of Dr. Nathen Gonzalez, Podiatric specialist, who is the patient's regular Wound Center provider. Patient's history has been previously documented by Dr. Gonzalez. He is under treatment for an ulceration of the plantar aspect of the left great toe. He is a known diabetic, and has a history of myocardial infarction and congestive heart failure. He denies a history of cerebrovascular accident, pulmonary disease, renal disease, thyroid disease, and hyperlipidemia. The patient is not currently a smoker, but formerly smoked 1 pack of cigarettes per day for approximately 45 years. 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 He has a history of peripheral arterial occlusive disease, and indicates that 2 vascular stents have been placed in his right lower extremity, and 1 in his left lower extremity. The patient is ambulatory, but suffers from classic symptoms of i ntermittent claudication at short distances of ambulation. With 2 blocks of ambulation, the patient experiences calf pain, which is typically relieved by rest. Current management involves the use of Betadine topically to his left great toe ulceration. Progress of Wound: slow improving full-thickness wound to the left hallux with evidence of new subfifth metatarsal full-thickness wound to the right foot. Subjective Subjective Patient is a 79-year-old diabetic male presented to wound care center today follow-up evaluation of bilateral full-thickness wounds to the plantar feet. Patient is ready to move forward with surgery on December 19. He will be getting labs today per PAT. His blood sugars well-controlled. Denies trauma. Doing dressing changes as discussed. Denies constitutional symptoms. No other pedal complaints at this time. Objective Data Objective Data Vital Signs: Vital Signs Temp Pulse Resp BP O2 Del Method 97.2 F L 50 L 17 175/92 H Room Air 12/10/24 08:23 12/10/24 08:23 12/10/24 08:23 12/10/24 08:23 11/26/24 08:32 Oxygen Delivery Method Room Air Physical Exam Narrative Vascular: DP and PT pulses palpable. CFT brisk. No erythema or proximal streaking. Skin temperature is warm to warm with no focal increase. Neurologic: Light touch is intact. Protective sensation is absent. Dermatologic: Full-thickness wound to the plantar aspect left hallux measuring 1.0 x 1.0 x 0.2 cm. Wound base is granular. Full-thickness wound to the subfifth metatarsal head of the right foot measuring 0.5 x 0.4 x 0.2 cm. Wound base is granular with no sign of infection. Excisional debridement down to including subcutaneous tissue with number 3 mm dermal curette to the full-thickness wound to plantar aspect of left hallux done without incident. Predebridement measurement was 0.9 x 0.8 x 0.1 cm. Postdebridement measurement is 1.0 x 1.0 x 0.2 cm. Excisional debridement down to including subcutaneous tissue with a number 3 mm dermal curette to the full-thickness wound to the plantar subfifth metatarsal head of the right foot done without incident. Predebridement measurement was callus. Postdebridement measurement is 0.5 x 0.4 x 0.2 cm. Musculoskeletal: Decreased range of motion to the first metatarsal phalangeal joint to the left foot. No pain on palpation to the full-thickness wound to plantar aspect of the left great toe or right sub5th met head. No pain with calf pressure. Debridement Note Debridement Note Debridement Free Text: Excisional debridement down to including subcutaneous tissue with number 3 mm dermal curette to the full-thickness wound to plantar aspect of left hallux done without incident. Predebridement measurement was 0.9 x 0.8 x 0.1 cm. Postdebridement measurement is 1.0 x 1.0 x 0.2 cm. Excisional debridement down to including subcutaneous tissue with a number 3 mm dermal curette to the full-thickness wound to the plantar subfifth metatarsal head of the right foot done without incident. Predebridement measurement was callus. Postdebridement measurement is 0.5 x 0.4 x 0.2 cm. Post-Debridement Measurements and Additional Note: Post-Debridement Measurements/Treatment WC - Nurse 1 - General Ulcer Assessment Start: 11/12/24 08:48 Freq: Status: Active Protocol: YOUNG Activity Type Activity Date Activity User E-sign Co-sign Detail Recorded Client Recorded Date Recorded By Document 11/12/24 08:48 ML [id number] 11/12/24 08:58 ML Document 11/19/24 08:22 GM [id number] 11/19/24 08:25 GM Document 11/26/24 08:32 GM [id number] 11/26/24 08:36 GM Document 12/10/24 08:23 TS [id number] 12/10/24 08:32 TS 11/12/24 11/19/24 11/26/24 08:48 08:22 08:32 - Today's Visit Information Type of service Follow-up Visit Follow-up Visit Follow-up Visit (Physician/RECOVERY COLLECTOR (Physician/RECOVERY COLLECTOR (Physician/RECOVERY COLLECTOR ) ) ) Arrival Mode Ambulatory Ambulatory Ambulatory Transfer Assistance None Patient Identification Verified (Name & Yes Yes ) Patient Requires Transmission-Based Precautions Vital Signs Temperature (97.8 F-99.1 F) 97.8 F 99.2 F H 98.1 F Temperature Source Temporal Temporal Temporal Pulse Rate (60-100) 59 L 74 66 Pulse Location Monitor Monitor Monitor Respiratory Rate (12-18) 14 16 18 Respiratory rate source Observation Observation Observation Oxygen Delivery Method Room Air Room Air Blood Pressure (90/60-120/80) 178/95 H 184/104 H 136/75 H Blood Pressure Mean (mm Hg) 122 130 95 Source Monitor Monitor Monitor Position Sitting Sitting Sitting Blood Pressure Location Left Arm Left Arm Right Arm History Since Last Visit- (Skip if this is Patient's initial visit) Have you changed medications since your No No No last visit? Any new allergies or adverse reactions No No No Had a fall/change in ADL's that may No No No increase risk of falls Signs or symptoms of abuse and/or No No neglect since last visit Have you been in the hospital since your No No No last visit? Has dressing in place as prescribed Yes Yes Yes Has compression in place as prescribed N/A Yes N/A Has offloadiing in place as prescribed N/A Yes Yes Experienced any changes in pain level or No No management Left Footwear Surgical Shoe Surgical Shoe with pressure with pressure relief insole relief insole Right Footwear Regular Shoe Regular Shoe Pain Scale: 0-10 Numeric Is Patient Pain Free? Yes Yes Yes 12/10/24 08:23 - Today's Visit Information Type of service Follow-up Visit (Physician/RECOVERY COLLECTOR ) Arrival Mode Ambulatory Transfer Assistance Patient Identification Verified (Name & Yes ) Patient Requires Transmission-Based No Precautions Vital Signs Temperature (97.8 F-99.1 F) 97.2 F L Temperature Source Temporal Pulse Rate (60-100) 50 L Pulse Location Monitor Respiratory Rate (12-18) 17 Respiratory rate source Observation Oxygen Delivery Method Blood Pressure (90/60-120/80) 175/92 H Blood Pressure Mean (mm Hg) 119 Source Position Sitting Blood Pressure Location History Since Last Visit- (Skip if this is Patient's initial visit) Have you changed medications since your No last visit? Any new allergies or adverse reactions No Had a fall/change in ADL's that may No increase risk of falls Signs or symptoms of abuse and/or No neglect since last visit Have you been in the hospital since your No last visit? Has dressing in place as prescribed Yes Has compression in place as prescribed N/A Has offloadiing in place as prescribed N/A Experienced any changes in pain level or No management Left Footwear Regular Shoe Right Footwear Regular Shoe Pain Scale: 0-10 Numeric Is Patient Pain Free? Yes WC - Nurse 1 - General Ulcer Measurement Start: 11/12/24 08:48 Freq: Status: Active Protocol: Activity Type Activity Date Activity User E-sign Co-sign Detail Recorded Client Recorded Date Recorded By Document 11/12/24 08:48 ML [id number] 11/12/24 08:58 ML Document 11/19/24 08:22 GM [id number] 11/19/24 08:25 GM Document 11/26/24 08:32 GM [id number] 11/26/24 08:36 GM Document 12/10/24 08:23 TS [id number] 12/10/24 08:32 TS 11/12/24 11/19/24 11/26/24 08:48 08:22 08:32 Wound Center Nurse 1 #2 L Grt Toe Plantar -Combined with other wound -Current Size (cm) - Length 0.7 0.9 1.0 -Current Size (cm) - Width 1 1.0 1.2 -Current Size (cm) - Depth 0.3 0.1 0.2 -Total Square Cm 0.7 0.90 1.20 -Date of Last Picture (Recall this 11/19/24 11/26/24 field) -Photo Taken Yes Yes -Epithelialization None Present None Present -Tunneling No No -Undermining/Tunneling No No -Circular Undermining Yes No No -Exudate Amt Medium Small Medium -Exudate Type Serosanguineous Yellow/Green Yellow/Green -Wound Margin Distinct, Distinct, Distinct, Outline Outline Outline Attached Attached Attached -Granulation Amt Medium (34-66%) Small (1-33%) Small (1-33%) -Granulation Quality Pale,[place] -Slough/Fibrin Yes No No -Necrosis Amt Medium (34-66%) None Present (0 %) -Necrotic Tissue Type Adherent Slough -Structure Exposed -Texture (Pat-wound Skin Appearance) Assessed Assessed Assessed,Callus -Moisture (Pat-wound Skin Appearance) Assessed Assessed No Abnormality, Assessed -Color (Pat-wound Skin Appearance) Assessed Assessed No Abnormality, Assessed -Temperature (Pat-wound Skin No Abnormality No Abnormality No Abnormality Appearance) (Pt Warm) (Pt Warm) (Pt Warm) -Tenderness on Palpation (Pat-wound No No No Skin Appearance) -Ulcer Cleansing Rinsed/ Rinsed/ Soap and Water Irrigated with Irrigated with Saline Saline -Foul Odor after Cleansing No No No -Anesthetic Used 5% Lidocaine 5% Lidocaine 5% Lidocaine Gel Gel Gel Right lateral plantar -Combined with other wound -Current Size (cm) - Length 0.1 0.4 0.5 -Current Size (cm) - Width 0.1 0.4 0.4 -Current Size (cm) - Depth 0.1 0.2 0.1 -Total Square Cm 0.01 0.16 0.20 -Date of Last Picture (Recall this 11/19/24 11/26/24 field) -Photo Taken Yes Yes -Epithelialization Small 1-33% None Present -Tunneling No No -Undermining/Tunneling No No -Circular Undermining No No -Exudate Amt Small Small Small -Exudate Type Yellow/Green Yellow/Green -Wound Margin Distinct, Distinct, Outline Outline Attached Attached -Granulation Amt Small (1-33%) Small (1-33%) Small (1-33%) -Granulation Quality [place] -Slough/Fibrin Yes No Yes -Necrosis Amt Small (1-33%) None Present (0 Small (1-33%) %) -Necrotic Tissue Type Adherent Slough -Structure Exposed -Texture (Pat-wound Skin Appearance) Assessed No Abnormality, No Abnormality, Assessed Assessed -Moisture (Pat-wound Skin Appearance) Assessed No Abnormality, No Abnormality, Assessed Assessed -Color (Pat-wound Skin Appearance) Assessed No Abnormality, No Abnormality, Assessed Assessed -Temperature (Pat-wound Skin No Abnormality No Abnormality Appearance) (Pt Warm) (Pt Warm) -Tenderness on Palpation (Pat-wound No No No Skin Appearance) -Ulcer Cleansing Rinsed/ Rinsed/ Rinsed/ Irrigated with Irrigated with Irrigated with Saline Saline Saline -Foul Odor after Cleansing No No No -Anesthetic Used 4% Lidocaine 5% Lidocaine 5% Lidocaine Solution Gel Gel Lower Limb Edema Present No Right Calf (cm) 35 Right Ankle (cm) 23.5 Left Calf (cm) 34 Left Ankle (cm) 23 12/10/24 08:23 Wound Center Nurse 1 #2 L Grt Toe Plantar -Combined with other wound No -Current Size (cm) - Length 0.1 -Current Size (cm) - Width 0.1 -Current Size (cm) - Depth 0.1 -Total Square Cm 0.01 -Date of Last Picture (Recall this 12/10/24 field) -Photo Taken Yes -Epithelialization -Tunneling No -Undermining/Tunneling No -Circular Undermining No -Exudate Amt None Present -Exudate Type -Wound Margin Flat & Intact -Granulation Amt -Granulation Quality -Slough/Fibrin -Necrosis Amt None Present (0 %) -Necrotic Tissue Type -Structure Exposed None/Limited to Skin Breakdown -Texture (Pat-wound Skin Appearance) Assessed -Moisture (Pat-wound Skin Appearance) Assessed -Color (Pat-wound Skin Appearance) Assessed -Temperature (Pat-wound Skin No Abnormality Appearance) (Pt Warm) -Tenderness on Palpation (Pat-wound Skin Appearance) -Ulcer Cleansing Soap and Water -Foul Odor after Cleansing No -Anesthetic Used 5% Lidocaine Gel Right lateral plantar -Combined with other wound No -Current Size (cm) - Length 1.3 -Current Size (cm) - Width 1.0 -Current Size (cm) - Depth 0.1 -Total Square Cm 1.30 -Date of Last Picture (Recall this 12/10/24 field) -Photo Taken Yes -Epithelialization Small 1-33% -Tunneling No -Undermining/Tunneling No -Circular Undermining No -Exudate Amt None Present -Exudate Type -Wound Margin Distinct, Outline Attached -Granulation Amt -Granulation Quality -Slough/Fibrin No -Necrosis Amt None Present (0 %) -Necrotic Tissue Type -Structure Exposed None/Limited to Skin Breakdown -Texture (Pat-wound Skin Appearance) Assessed -Moisture (Pat-wound Skin Appearance) Assessed -Color (Pat-wound Skin Appearance) Assessed -Temperature (Pat-wound Skin No Abnormality Appearance) (Pt Warm) -Tenderness on Palpation (Pat-wound No Skin Appearance) -Ulcer Cleansing Soap and Water -Foul Odor after Cleansing No -Anesthetic Used 5% Lidocaine Gel Lower Limb Edema Present Right Calf (cm) Right Ankle (cm) Left Calf (cm) Left Ankle (cm) WC - Nurse 2 - General Ulcer CM Notes Start: 11/12/24 08:48 Freq: Status: Active Protocol: Activity Type Activity Date Activity User E-sign Co-sign Detail Recorded Client Recorded Date Recorded By Document 11/12/24 09:08 [id number] 11/12/24 09:13 Document 11/19/24 08:32 [id number] 11/19/24 08:34 Document 11/26/24 08:41 [id number] 11/26/24 08:44 Document 12/10/24 08:53 [id number] 12/10/24 08:55 11/12/24 11/19/24 11/26/24 09:08 08:32 08:41 Wound Center Nurse 2 #2 L Grt Toe Plantar -Time 09:08 08:32 08:42 -Correct Patient Yes Yes Yes -Correct Side, Site, Position Yes Yes Yes -Correct Procedure Yes Yes Yes -Procedure Performed Yes Yes Yes -Type of Procedure Debridement Debridement Debridement -Clinical Debridement Subcutaneous Subcutaneous Subcutaneous -Tissue Removed Subcutaneous Subcutaneous Subcutaneous -Post Debridement (cm) - Length 1.3 1.2 -Post Debridement (cm) - Width 1.3 1.0 -Post Debridement (cm) - Depth 0.2 0.2 -Total Square (Post) (cm) 1.69 1.20 -Area of Debridement (cm) - Length 1.3 1.2 -Area of Debridement (cm) - Width 1.3 1.0 -Total Square (Area) (cm) 1.69 1.20 -Tunneling No No No -Undermining/Tunneling No No No -Circular Undermining No No No -Wound/Ulcer Outcome Not Healed Not Healed Not Healed -Ulcer Cleansing Rinsed/ Rinsed/ Rinsed/ Irrigated with Irrigated with Irrigated with Saline Saline Saline -Foul Odor after Cleansing No No No -Bioengineered Tissue No No No -Bleeding Controlled with Pressure Pressure Pressure -Treatment Response Procedure Procedure Procedure Tolerated Well Tolerated Well Tolerated Well -Offloading No No Yes -Type of Offloading Surgical Shoe -Debridement - Subq, 1st 20sq cm Yes No No Right lateral plantar -Time 09:09 08:32 08:43 -Correct Patient Yes Yes Yes -Correct Side, Site, Position Yes Yes Yes -Correct Procedure Yes Yes Yes -Procedure Performed Yes Yes Yes -Type of Procedure Debridement Debridement Debridement -Clinical Debridement Subcutaneous Subcutaneous Subcutaneous -Tissue Removed Subcutaneous Subcutaneous Subcutaneous -Post Debridement (cm) - Length 0.6 0.4 0.3 -Post Debridement (cm) - Width 0.6 0.5 0.4 -Post Debridement (cm) - Depth 0.1 0.2 0.1 -Total Square (Post) (cm) 0.36 0.20 0.12 -Area of Debridement (cm) - Length 0.6 0.4 0.3 -Area of Debridement (cm) - Width 0.6 0.5 0.4 -Total Square (Area) (cm) 0.36 0.20 0.12 -Tunneling No No No -Undermining/Tunneling No No No -Circular Undermining No No No -Wound/Ulcer Outcome Not Healed Not Healed Not Healed -Ulcer Cleansing Rinsed/ Rinsed/ Rinsed/ Irrigated with Irrigated with Irrigated with Saline Saline Saline -Foul Odor after Cleansing No No No -Bioengineered Tissue No No No -Bleeding Controlled with Pressure Pressure Pressure -Treatment Response Procedure Procedure Procedure Tolerated Well Tolerated Well Tolerated Well -Offloading No No Yes -Type of Offloading Surgical Shoe -Debridement - Subq, 1st 20sq cm No Yes Yes Pain Scale: 0-10 Numeric Is Patient Pain Free? Yes Yes Yes 12/10/24 08:53 Wound Center Nurse 2 #2 L Grt Toe Plantar -Time 08:53 -Correct Patient Yes -Correct Side, Site, Position Yes -Correct Procedure Yes -Procedure Performed Yes -Type of Procedure Debridement -Clinical Debridement Subcutaneous -Tissue Removed Subcutaneous -Post Debridement (cm) - Length 1 -Post Debridement (cm) - Width 1 -Post Debridement (cm) - Depth 0.2 -Total Square (Post) (cm) 1 -Area of Debridement (cm) - Length 1 -Area of Debridement (cm) - Width 1 -Total Square (Area) (cm) 1 -Tunneling No -Undermining/Tunneling No -Circular Undermining No -Wound/Ulcer Outcome Not Healed -Ulcer Cleansing Rinsed/ Irrigated with Saline -Foul Odor after Cleansing No -Bioengineered Tissue No -Bleeding Controlled with Pressure -Treatment Response Procedure Tolerated Well -Offloading No -Type of Offloading -Debridement - Subq, 1st 20sq cm No Right lateral plantar -Time 08:53 -Correct Patient Yes -Correct Side, Site, Position Yes -Correct Procedure Yes -Procedure Performed Yes -Type of Procedure Debridement -Clinical Debridement Subcutaneous -Tissue Removed Subcutaneous -Post Debridement (cm) - Length 0.5 -Post Debridement (cm) - Width 0.4 -Post Debridement (cm) - Depth 0.2 -Total Square (Post) (cm) 0.20 -Area of Debridement (cm) - Length 0.5 -Area of Debridement (cm) - Width 0.4 -Total Square (Area) (cm) 0.20 -Tunneling No -Undermining/Tunneling No -Circular Undermining No -Wound/Ulcer Outcome Not Healed -Ulcer Cleansing Rinsed/ Irrigated with Saline -Foul Odor after Cleansing No -Bioengineered Tissue No -Bleeding Controlled with Pressure -Treatment Response Procedure Tolerated Well -Offloading No -Type of Offloading -Debridement - Subq, 1st 20sq cm Yes Pain Scale: 0-10 Numeric Is Patient Pain Free? Yes WC - Nurse 3 - General Ulcer D/C NN Start: 11/12/24 08:48 Freq: Status: Active Protocol: Activity Type Activity Date Activity User E-sign Co-sign Detail Recorded Client Recorded Date Recorded By Document 11/12/24 09:22 PA [id number] 11/12/24 09:33 PA Document 11/19/24 08:49 [id number] 11/19/24 08:50 GM Document 12/10/24 09:11 [id number] 12/10/24 09:12 11/12/24 11/19/24 12/10/24 09:22 08:49 09:11 Wound Care Center Nurse 3 #2 L Grt Toe Plantar -Ulcer Cleansing Not Cleansed Not Cleansed -Foul Odor after Cleansing No No -Primary Dressing Applied AMD Dressing AMD Dressing 4x4 4x4 -Other Dressing betadine -Primary Dressing Covered/Secured with Dry Gauze & Dry Gauze, Dry Gauze, Roll Gauze, Secured with Secured with Secured with Tape Tape Tape -AMD Dressing 4x4 1 1 Right lateral plantar -Ulcer Cleansing Not Cleansed Not Cleansed -Foul Odor after Cleansing No No -Other Dressing betadine betadine swab -Primary Dressing Covered/Secured with Dry Gauze, Dry Gauze, Dry Gauze,Dry Secured with Secured with Gauze & Roll Tape Tape Gauze,Secured with Tape Pain Scale: 0-10 Numeric Is Patient Pain Free? Yes Yes Yes WC - Visit Discharge Discharge Condition Stable Stable Ambulatory Status Ambulatory Ambulatory Transportation Private Auto Private Auto Assessment/Plan Assessment/Plan (1) Non-pressure chronic ulcer of other part of left foot with fat layer exposed: CODE(S): L97.522 - Non-pressure chronic ulcer of other part of left foot with fat layer exposed PLAN: Patient was examined and evaluated. All findings were discussed with the patient. All questions were answered to the patient's satisfaction. Excisional debridement down to including subcutaneous tissue with number 3 mm dermal curette to the full-thickness wound to plantar aspect of left hallux done without incident. Predebridement measurement was 0.9 x 0.8 x 0.1 cm. Postdebridement measurement is 1.0 x 1.0 x 0.2 cm. Excisional debridement down to including subcutaneous tissue with a number 3 mm dermal curette to the full-thickness wound to the plantar subfifth metatarsal head of the right foot done without incident. Predebridement measurement was callus. Postdebridement measurement is 0.5 x 0.4 x 0.2 cm. The bilateral lower extremity were cleaned and patted dry. Betadine paint and dry sterile dressing and Tubigrip was donned to the right plantar full-thickness wound. AMD pad dry sterile dressing and Tubigrip was donned to the left lower extremity. Patient will go across street and get labs drawn for surgery. Plan for surgery 12/19/2024 Patient will continue strict blood sugar control. Patient will follow-up in 2 week (2) Acute painful diabetic polyneuropathy: CODE(S): E11.42 - Type 2 diabetes mellitus with diabetic polyneuropathy (3) Non-pressure chronic ulcer of other part of right foot with fat layer exposed: CODE(S): L97.512 - Non-pressure chronic ulcer of other part of right foot with fat layer exposed
--- NOTE | 2024-12-11 10:40 | WC ---
PHOTO-RIGHT LAT PLANTAR 12/10/24
--- NOTE | 2024-12-11 10:48 | WC ---
PHOTO-LEFT PLANTAR HALLUX 12/10/24
== END 2024-12-12 23:59 ==
LOC: WC 08:45
PROVIDERS: PCP Family Medicine Geriatric Medicine; Visit Provider Podiatrist Foot & Ankle Surgery
CPT/HCPCS: 11042; 73630

== ENCOUNTER 2024-12-19 10:19 | Day surgery (SDC) | payer MEDICARE, OTHER, SELFPAY ==
[2024-12-10 11:17] LABS: Vitamin D,25 Hydroxy 23.0 ng/mL (30-100)
--- NOTE | 2024-12-11 17:04 | PAT.ANE_ITS ---
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 When Was Last Pacemaker Check QUESTION #4 FULL TEXT: You/Your Family Experience fever (hyperthermia) with Anesthesia Last Oral Intake Last Oral intake: Last Oral Intake NPO since Meds taken in AM with sips of water? Meds patient instructed to take am of surgery PONV PONV - forest science professor: PONV - forest science professor Female No 12/11/24 09:07 HX of Motion Sickness No 12/11/24 09:07 HX of N/V After Surgery Yes 12/11/24 09:07 Non-Smoker Yes 12/11/24 09:07 Duration of Surgery greater Yes 12/11/24 09:07 than 60 minutes Number of Risk Factors 3 12/11/24 09:07 PONV Score Moderate Risk 12/11/24 09:07 Height & Weight Height & Weight: Anesthesia: Height & Weight Height 5 ft 10 in 11/26/24 09:45 Respiratory Assessment Respiratory Assessment - forest science professor: Respiratory Tract Infection Hx - forest science professor Hx Respiratory Tract Infection Yes: RUNNY NOSE 12/0712/11/24 09:07 STOP Sleep Apnea STOP Sleep Apnea - forest science professor: STOP Sleep Apnea - forest science professor Hx Hypertension Yes: CONTROLLED WITH MEDS 12/11/24 09:07 Hx Sleep Apnea Yes 12/11/24 09:07 CPAP Yes 12/11/24 09:07 BIPAP No 12/11/24 09:07 Do you snore loudly (louder than talking or can be heard Do you often feel tired/ fatigued/ sleepy during daytime? Has anyone observed you stop breathing during sleep? STOP Results Positive 12/11/24 09:07 QUESTION #5 FULL TEXT : Do you snore loudly (louder than talking or can be heard through closed doors)? 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 Specify any problems Hx of Preganancy in last 3 N/A 12/11/24 09:07 Months Nurse Filling Out Transfusion [id number] 12/11/24 09:07 & Questions: Date: 12/11/24 12/11/24 09:07 Time: 09:11 12/11/24 09:07 Patient unable to answer at this time (ie. confused, unrespo /Reproduction History /Reproductive History - forest science professor: /Reproductive Hx- forest science professor Hx Now Gestational Age (in weeks): EDC: Hx Hx Para Hx Section SAB PFSH Medical History (Updated 12/11/24 @ 09:29 by Jamal Soto) Wears partial dentures Wears glasses Open wound DVT (deep venous thrombosis) Gastric reflux Former smoker Hoarseness History of edema History of echocardiogram History of stress test Cardiology follow-up encounter Ischemic cardiomyopathy Bradycardia Obesity TYSON (obstructive sleep apnea) Hyperlipidemia Afib CHF (congestive heart failure) Vitamin D deficiency BPH (benign prostatic hyperplasia) Restless legs GERD (gastroesophageal reflux disease) CVA (cerebral vascular accident) Gout Diabetic foot ulcer associated with type 2 diabetes mellitus Polyneuropathy Intermittent claudication History of myocardial infarction Coronary artery disease History of throat cancer Pain in left foot Acute painful diabetic polyneuropathy Non-pressure chronic ulcer of other part of left foot with fat layer exposed HTN (hypertension) Throat cancer COPD (chronic obstructive pulmonary disease) Idiopathic neuropathy Peripheral vascular disease Non-pressure chronic ulcer of other part of right foot with fat layer exposed Home Medications ?Medication ?Instructions ?Recorded ?Last Taken ?Type albuterol 90 mcg/actuation aerosol 90 mcg inhalation Q 6H PRN SOB 01/03/23 Unknown History inhaler aspirin 81 mg tablet,delayed 81 mg PO DAILY 01/03/23 U nknown History release (Adult Low Dose Aspirin) pantoprazole 40 mg tablet,delayed 40 mg PO DAILY 01/03 Unknown History release tamsulosin 0.4 mg capsule (Flomax) 0.4 mg PO DAILY Unknown History tiotropium bromide 18 mcg capsule 1 cap inhalation BRIGIDA LY 01/03/23 Unknown History with inhalation device (Spiriva with HandiHaler) finasteride 5 mg tablet 5 mg PO QDAY 11/24/24 Unknow n History fluticasone propionate 115 2 puff inhalation BID 11/24 Unknown History mcg-salmeterol 21 mcg/actuation HFA inhaler (Advair HFA) furosemide 40 mg tablet 40 mg PO QDAY 11/24/24 Unkno wn History metoprolol succinate 25 mg 25 mg PO QDAY 11/24/24 Unkn own History tablet,extended release 24 hr sacubitril 24 mg-valsartan 26 mg 0.5 tab PO BID Unknown History tablet (Entresto) ProstateMD 1 cap PO DAILY 11/26/24 Unkn own History amlodipine 5 mg tablet 5 mg PO QDAY 11/26/24 Unknow n History febuxostat 40 mg tablet (Uloric) 40 mg PO QDAY 5 Unknown History nystatin 100,000 unit/gram topical 1 applic topical TI D PRN rash 11/26/24 Unknown History powder Allergy/AdvReac Type Severity Reaction Status Date / Time No Known Allergies Allergy Verified 12/11/24 09:03 Family History Father Colon cancer Mother Cancer Sister Cancer Sister Hypertension Brother Cancer Surgical History (Updated 12/11/24 @ 09:29 by Jamal Soto) H/O inguinal hernia repair History of loop recorder (01/18/18) History of percutaneous angioplasty History of amputation of toe History of hip replacement History of throat surgery Social History Smoking Status: Former smoker alcohol intake: never substance use type: does not use Audit: Pertinent Findings Pertinent Findings EKG Perinent findings: November 26, 2024. Sinus bradycardia at 52 bpm with occasional PVCs. LAD. Minimal LVH. Inferior infarct age undetermined. Anterior lateral infarct age undetermined. Stress test pertinent findings: 11/27/2024. EF at 38%. Normal pharmacologic myocardial perfusion stress test. Moderately reduced ejection fraction. Previous inferior infarct noted with no ischemia. Echo (EF%) pertinent findings: 12/19/2023. EF of 55 to 60%. Akinesis of the basal inferolateral to basal inferior to basal inferoseptal wall is noted. No evidence of aortic valve stenosis. Consult pertinent findings: 11/26/2024. Dr. Leach. 1. Encounter for preop cardiovascular exam-history of TX in 2009 with stent placed. Prior echo showed hypokinesis of the inferior wall. No recent stress test. Plan chemical stress prior to surgery. (See above). Patient is to continue all meds perioperatively. 2. Ischemic cardiomyopathy-history of preserved ejection fraction. Continue present plan. 3. Hypertension-continue current meds. 4. COPD?unable to perform exercise based stress test, will do chemical stress test instead. Recommendation Anesthesia Recommendation Anesthesia recommendation: OPTIMIZED for anesthesia
[2024-12-19] VITALS (10 sets, daily range): BP systolic 129–144; BP diastolic 73–78; PULSE 54–62; RESP 14–19; TEMP 36.1–36.4; O2SAT 90–96; BMI 29.5
[2024-12-19] MEDS: Lactated Ringers 1,000 ML 15 ML IV (10:51)
--- NOTE | 2024-12-19 11:27 | OP.PCM_ITS ---
Operative Report (Standard) Operative Information Date of Procedure: 12/19/24 Pre-Operative Diagnosis: 1. Full-thickness wound, left foot 2. Full-thickness wound, right foot 3. Diabetes type 2 peripheral neuropathy Post-Operative Diagnosis: 1. Full-thickness wound, left foot 2. Full-thickness wound, right foot 3. Diabetes type 2 peripheral neuropathy Surgery/Procedure Performed: Procedure #1: Incision bone cortex, left foot Procedure #2: Advancement flap closure, left foot Procedure #3: Dorsiflexed the osteotomy, fifth metatarsal, right foot Procedure #4: Delayed primary closure, right foot program professional: No Type of Anesthesia: General and Local RN Documented Start/Stop Times: Operation Date: 12/19/24 12:15 Case Time Into Pre-Op 12/19/24 10:28 Out of Pre-Op 12/19/24 12:46 Anesthesia Start 12/19/24 12:47 Into Room 12/19/24 12:47 Procedure Start 12/19/24 13:10 Procedure End 12/19/24 13:53 Anesthesia End 12/19/24 13:58 Out of Room 12/19/24 13:58 Into Recovery 12/19/24 14:00 Into Phase II Recovery 12/19/24 14:50 Out of Recovery 12/19/24 14:50 Out of Phase II 12/19/24 15:47 Procedure Start Time: 13:10 Procedure Stop Time: 13:53 Select all DRAINS/GRAFTS/IMPLANTS that apply: None Special Medications: Per anesthesia Estimated Blood Loss: 25 mL Fluids Replaced: Per anesthesia Specimen collected: Yes Description of specimen(s) removed: Incision bone cortex, left hallux sent to pathology and microbiology Description of surgery: Indications For Operation: Mr. Ma is a 79-year-old diabetic male who was admitted to [facility] for bilateral foot surgery. Patient is very well-known to my service and has been treated as an outpatient at the wound care center for full- thickness wound to the plantar aspect of the left hallux. Patient has extensive history of peripheral arterial disease as well as being a controlled diabetic during my care. 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 With shoe gear the patient had developed a plantar ulcer. We tried to treat this conservatively with outpatient debridements and offloading pads which was unsuccessful. During that time the patient developed a wound to the plantar aspect of the right foot fifth metatarsal head due to the neuropathy that he faced. After failing outpatient treatment I discussed with the patient surgical intervention as above. We are both in agreement and agreed to move forward to outpatient surgery with all risk benefits discussed with the patient great detail. Patient had surgical consultation while at the wound care center. All risk and benefits were discussed with the patient in great detail. Due to decreased range of motion of the big toe joint of the left foot and decreased fat pad to the right foot with neuropathy we agreed to move forward with the above procedure to help close the patient's full-thickness wound, offload the fifth metatarsal head on the right foot and get the patient wound free. After complete and successful surgery the patient would be placed in custom diabetic shoes with custom offloading diabetic inserts. The nature of the problem, anticipated procedures, postop recovery/convalences and risk/complications include but not limited to infection, wound healing complications, digital amputation, hypertrophic scarring, numbness, tingling, chronic pain, CRPS, over and under correction, recurrence of deformity, DVT and or PE and the need for further surgery have been discussed in great detail with the patient. All que stions have been answered to the patient's satisfaction. There are no guarantees given as to the outcome of the procedure. Description of Procedure: Under mild sedation, the patient was brought into the operating room and placed on the operating table in supine position. Once the patient was under general anesthesia with laryngeal mask airway, the right and left lower extremity was blocked using approximately 10 cc each to the left and right lower extremity using 0.5% Marcaine plain. No tourniquet was used for this case. Next, the right and left lower extremity was prepped and draped in normal aseptic manner. Next, a timeout was then undertaken verifying the correct patient, extremity, visibility of preoperative markings, availability of the equipment. Procedure #1: Incision bone cortex, left foot (CPT code: 85885) Next, attention was directed to the left hallux, there showed evidence of a full-thickness wound to the plantar aspect that showed evidence of some mild necrosis with probing to bone. Next, the incision was marked out on the hallux using a sterile skin marker. Next using a #15 blade the incision was made down to bone exposing the remaining proximal phalanx of the left great toe. The proximal phalanx was disarticulated from the first metatarsal phalangeal joint and passed the back table to be split off via incision of bone cortex with half going to pathology and the other half going to microbiology for culture and sensitivity. Inspection of the head of the first metatarsal showed good integrity with no breakdown or violation of that cortex. Next, the incision was flushed with copious normal saline. Procedure #2: Advancement flap closure, left foot (CPT code: 85475) Next, the remaining soft tissue was rearranged to allow for advancement flap closure. The skin fold that was left over after removal of the proximal phalanx in the left foot was removed and the excess tissue was allowed to be closed and advancement flap fashion. The deep layer and capsule was closed using 2-0 Vicryl in buried suture technique covering the first metatarsal head. The subcutaneous tissue was reapproximated closed with 2-0 Vicryl in buried suture technique. The skin was then undermined to allow for a more advancement flap closure technique and reapproximated and closed using 3-0 nylon in simple erupted suture technique. Procedure #3: Dorsiflexed the osteotomy, fifth metatarsal, right foot (CPT code: 67459) Next, attention was directed to the fifth metatarsal head and shaft of the right foot. Using a mini C arm fluoroscopy and [place] elevator, the osteotomy was marked out. Next a small stab incision was made dorsally over the surgical neck of the fifth metatarsal right foot. Using the MIS bur, screw machine hand and powered by Mammotome the metatarsal osteotomy was performed without incident. Once completed there showed good range of motion of the capital fragment and offloading of the full-thickness wound to the plantar aspect of the subfifth metatarsal head of the right foot. The incision was flushed with copious amounts of normal saline. All irrigant was evacuated from the incision. The incision was reapproximated closed using 3-0 nylon in simple erupted suture technique. Procedure #4: Delayed primary closure, right foot (CPT code: 15227) Next, attention was directed to the plantar aspect subfifth metatarsal head f ull-thickness wound. Excisional debridement down to including subcutaneous tissue with a curette was performed. There showed healthy bleeding with no evidence of positive probe to bone. The skin was reapproximated and closed with 3-0 nylon in simple erupted suture technique. Next, the bilateral lower extremities were wiped clean and patted dry. All incisions were dressed with Betadine soaked Adaptic, dry sterile dressing and a single layer Helm compression bandage was donned to the bilateral lower extremity. The patient tolerated the procedure and anesthesia well and apparent satisfacto ry condition and was transported to the PACU for further monitoring prior to discharge home. Vital signs stable and vascular status intact to all digits bilateral. Post Operative Plan: Weightbearing: Patient will be partial weightbearing in surgical shoes for no longer than 5 minutes with assistive walker. Antibiotics: 2 g Ancef through the IV DVT Prophylaxis: 81 mg aspirin restart after surgery at 24 hours Moreno: None Dressing: Betadine soaked Adaptic dry sterile dressing single layer Helm compression bandage to bilateral lower extremity. X-Rays: Post-operative films taken on the operating room. Pain Medication: Oxycodone 5 mg, Tylenol 650 3 times daily Follow-up: Patient will follow-up next Sunday at the wound care center Surgical Findings: 1. Successful delayed primary closure to the right foot 2. Successful vascular flap closure removal of soft bone to the left hallux 3. 2 samples of the left hallux sent to pathology and microbiology Complications Complications: No Admit VTE Documentation VTE Mechan Device Prophylaxis: SCD's VTE Pharm Prophylaxis ordered?: No
--- NOTE | 2024-12-19 11:57 | PCM.PRE.AN2 ---
ASA Classification* ASA Classification ASA Classification: 3 Assessment & Plan Anesthesia* Anesthesia Assessment Anesthesia Assessment: Discussed sedation and/or anesthesia options, risks, benefits, and alternatives with patient/parents/legal guardian/POA. Questions invited. The patient/parents/legal guardian/POA seems to understand and agrees to proceed with anesthesia plan. Reviewed the physical assessment, medical history, allergy history and patient home medications list prior to surgery/procedure/anesthetic and documented any changes. Performed airway and anesthesia risk assessments. Anesthesia Type Anesthesia Type: General History Source History Obtained from:: Patient and Chart Anesthesia Focused Assessment* Temperature: 97.5 F Pulse Rate: 55 Blood Pressure: 129/75 Respiratory Rate: 19 Pulse Ox: 96 Oxygen Delivery Method: Room Air Airway Assessment Mouth opens: >3 cm Mallampati Score: I Teeth Condition: Partial (Patient has upper partial which is currently out. Rest of the teeth are tight.) Neck Range of motion (ROM): Limited ROM (Slight Decrease) Labs Anesthesia Preop lab: CBC WBC, (4.4-11.0) 8.4 K/mm3 10/23/24, 16:05 RBC, (4.6-6.2) 4.31 M/mm3 L 10/23/24, 16:05 Hgb, (13.0-16.5) 13.4 g/dL 10/23/24, 16:05 Hct, (40-54) 40.6 % 10/23/24, 16:05 Plt Count, (150-450) 154 K/mm3 10/23/24, 16:05 CHEMISTRY Potassium, (3.3-5.1) 3.9 mmol/L 10/23/24, 16:05 Sodium, (133-145) 144 mmol/L 10/23/24, 16:05 BUN, (4-19) 16 mg/dL 10/23/24, 16:05 Creatinine, (0.70-1.20) 0.99 mg/dL 10/23/24, 16:05 Glucose, (70-99) 95 mg/dL 10/23/24, 16:05 TSH, (0.300-4.200) 0.866 uIU/mL 10/23/24, 16:05 COAG Pre-Assessment Diagnosis/Proposed Procedure Planned Operative Procedure(s): DORSIFLEXORY OSTEOTOMY OF RIGHT FIFTH METATARSAL WITH DELAYED CLOSURE Anesthesia History 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 When Was Last Pacemaker Check QUESTION #4 FULL TEXT: You/Your Family Experience fever (hyperthermia) with Anesthesia Last Oral Intake Last Oral intake: Last Oral Intake NPO since 07:00 12/19/24 10:47 Meds taken in AM with sips of Yes 12/19/24 10:47 water? Meds patient instructed to take am of surgery Any additional information?: Yes Meds taken in AM with sips of water?: Yes PONV PONV - heatset winder operator: PONV - heatset winder operator Female No 12/11/24 09:07 HX of Motion Sickness No 12/11/24 09:07 HX of N/V After Surgery Yes 12/11/24 09:07 Non-Smoker Yes 12/11/24 09:07 Duration of Surgery greater Yes 12/11/24 09:07 than 60 minutes Number of Risk Factors 3 12/11/24 09:07 PONV Score Moderate Risk 12/11/24 09:07 Height & Weight Height & Weight: Anesthesia: Height & Weight Height 5 ft 10 in 12/19/24 10:47 Weight: 93.5 kg 12/19/24 10:47 Body Mass Index (BMI) 29.5 12/19/24 10:47 Respiratory Assessment Respiratory Assessment - heatset winder operator: Respiratory Tract Infection Hx - heatset winder operator Hx Respiratory Tract Infection Yes: RUNNY NOSE 12/0712/11/24 09:07 STOP Sleep Apnea STOP Sleep Apnea - heatset winder operator: STOP Sleep Apnea - heatset winder operator Hx Hypertension Yes: CONTROLLED WITH MEDS 12/11/24 09:07 Hx Sleep Apnea Yes 12/11/24 09:07 CPAP Yes 12/11/24 09:07 BIPAP No 12/11/24 09:07 Do you snore loudly (louder than talking or can be heard Do you often feel tired/ fatigued/ sleepy during daytime? Has anyone observed you stop breathing during sleep? STOP Results Positive 12/11/24 09:07 QUESTION #5 FULL TEXT : Do you snore loudly (louder than talking or can be heard through closed doors)? 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 Specify any problems Hx of Preganancy in last 3 N/A 12/11/24 09:07 Months Nurse Filling Out Transfusion [email or web address] 12/11/24 09:07 & Questions: Date: 12/11/24 12/11/24 09:07 Time: 09:11 12/11/24 09:07 Patient unable to answer at this time (ie. confused, unrespo /Reproduction History /Reproductive History - heatset winder operator: /Reproductive Hx- heatset winder operator Hx Now Gestational Age (in weeks): EDC: Hx Hx Para Hx Section SAB Does the father of the baby or his family experience fever w Father of the baby Malignant Hypertension history comment Active Medications Active Medications: Current Medications Generic Name Dose Route Start Last Admin Trade Name Freq PRN Reason Stop Dose Admin Cefazolin Sodium 2 gm/ Sodium 110 mls @ 200 mls/hr 12/19/24 14:15 Chloride IV 12/19/24 14:47 INTRAOP ONE Lactated Ringer's 1,000 mls @ 15 mls/hr 12/19/24 10:30 12/19/24 10:51 IV 15 mls/hr .Q48H ANG Administration PFSH Medical History Wears partial dentures Wears glasses Open wound DVT (deep venous thrombosis) Gastric reflux Former smoker Hoarseness History of edema History of echocardiogram History of stress test Cardiology follow-up encounter Ischemic cardiomyopathy Bradycardia Obesity TYSON (obstructive sleep apnea) Hyperlipidemia Afib CHF (congestive heart failure) Vitamin D deficiency BPH (benign prostatic hyperplasia) Restless legs GERD (gastroesophageal reflux disease) CVA (cerebral vascular accident) Gout Diabetic foot ulcer associated with type 2 diabetes mellitus Polyneuropathy Intermittent claudication History of myocardial infarction Coronary artery disease History of throat cancer Pain in left foot Acute painful diabetic polyneuropathy Non-pressure chronic ulcer of other part of left foot with fat layer exposed HTN (hypertension) Throat cancer COPD (chronic obstructive pulmonary disease) Idiopathic neuropathy Peripheral vascular disease Non-pressure chronic ulcer of other part of right foot with fat layer exposed Home Medications ?Medication ?Instructions ?Recorded ?Last Taken ?Type albuterol 90 mcg/actuation aerosol 90 mcg inhalation Q6H PRN SOB 01/03/23 Unknown History inhaler aspirin 81 mg tablet,delayed 81 mg PO DAILY 01/03/23 12/17/24 History release (Adult Low Dose Aspirin) pantoprazole 40 mg tablet,delayed 40 mg PO DAILY 01/03/23 12/19/24 History release tamsulosin 0.4 mg capsule (Flomax) 0.4 mg PO DAILY 01/03/23 12/18/24 History tiotropium bromide 18 mcg capsule 1 cap inhalation DAILY 01/03/23 12/18/24 History with inhalation device (Spiriva with HandiHaler) finasteride 5 mg tablet 5 mg PO QDAY 11/24/24 12/18/24 History fluticasone propionate 115 2 puff inhalation BID 11/24/24 12/18/24 History mcg-salmeterol 21 mcg/actuation HFA inhaler (Advair HFA) furosemide 40 mg tablet 40 mg PO QDAY 11/24/24 12/18/24 History metoprolol succinate 25 mg 25 mg PO QDAY 11/24/24 12/19/24 History tablet,extended release 24 hr sacubitril 24 mg-valsartan 26 mg 0.5 tab PO BID 11/24/24 12/19/24 History tablet (Entresto) ProstateMD 1 cap PO DAILY 11/26/24 12/18/24 History amlodipine 5 mg tablet 5 mg PO QDAY 11/26/24 12/19/24 History febuxostat 40 mg tablet (Uloric) 40 mg PO QDAY 11/26/24 12/19/24 History nystatin 100,000 unit/gram topical 1 applic topical TID PRN rash 11/26/24 12/18/24 History powder Allergy/AdvReac Type Severity Reaction Status Date / Time No Known Allergies Allergy Verified 12/11/24 09:03 Family History Father Colon cancer Mother Cancer Sister Cancer Sister Hypertension Brother Cancer Surgical History H/O inguinal hernia repair History of loop recorder (01/18/18) History of percutaneous angioplasty History of amputation of toe History of hip replacement History of throat surgery Social History Smoking Status: Former smoker alcohol intake: never substance use type: does not use Review of Systems (Anesthesia) ROS Narrative System reviewed and no additional complaints, except as documented.
--- NOTE | 2024-12-19 12:15 | BONBX_PTH ---
PATIENT: ELDER BRUNO [place] [facility] [id number] AGE/SX: 79/M ROOM: RE12/19/[address]: Dr. Nathen Gonzalez DPM : 1945 BED: DIS: 12/19/2024 SPEC #: [id number] RECD: 12/19/24 13:43 STATUS: GAMALIEL RECole #: [id number] OTF: 12/19/24 12:[address]: Nathen Gonzalez DEPT: SURGICAL PATHOLOGY RECD BY: Matt Rojas ENTERED: 12/19/24 14:49 SP TYPE: Bone OTHR DR: Dr. Rey Greenwood MD Tissues: A - Toe, NOS Procedures: Decalcification bone/plaque Surgery Specimen Level IV HEADER OPERATION: Arthrotomy of left hallux interphalangeal joint PRE-OP DIAGNOSIS: Full thickness wound right and left foot TISSUE SUBMITTED: A- Incision of bone cortex left hallux MICROSCOPIC DIAGNOSIS A. Bone, left hallux, interphalangeal joint arthrotomy: - Fragments of trabecular bone with reactive and degenerative changes and interconnecting fibroadipose tissue. - Negative for acute inflammation. MICROSCOPIC DESCRIPTION Slides are reviewed. GROSS DESCRIPTION A. Received in formalin labeled with the patient's name and date of . Designated as incision of bone cortex of left hallux is a 2.2 x 2.0 x 1.2 cm irregular portion of bone surfaced by borrero-pink soft tissue. Sectioning reveals borrero-yellow, trabeculated medullary bone. A fuels sales representative section is submitted in 1 cassette, following decalcification. AL 12/19/2024 CPT:08445,07200
--- NOTE | 2024-12-19 12:51 | RAD_ITS ---
PROCEDURE: FOOT 2 VIEWS 12/19/2024 REASON FOR EXAM: ARTHROTOMY OF THE LT HALLUX INTERPHALANGEAL JOINT TECHNIQUE: Procedure Code: RADFO2 Modality: DX Procedure: FOOT 2 VIEWS Laterality: Right. 2 spot images. Total radiation exposure time 51 seconds. Total DAP: 5.95 cGy cm2. Total Air Kerma: 0.3544. COMPARISON: 11/14/2024. FINDINGS: Intraoperative fluoroscopic images. Osteotomy of the right 5th metatarsal bone. Prior amputation of the 1st and 2nd toes. Mild hammertoes deformities. RAD/Foot 2 Views IMPRESSION: Intraoperative fluoroscopic images. Reading Location: [facility]
[2024-12-19] MEDS: fentaNYL 100 MCG/2 ML Ampul IV (12:52)
[2024-12-19] MEDS: Lidocaine 1% (5 ml sdv) 5 ML Vial IV (12:52)
[2024-12-19] MEDS: Cefazolin 1 GM/5 ML Vial 2 GM IV (12:55)
--- NOTE | 2024-12-19 14:02 | PCM.POST.ANE ---
Anesthesia: Postop Eval I Current Vital Signs Temperature: 97.5 F Pulse Rate: 59 Blood Pressure: 143/77 Respiratory Rate: 16 Pulse Ox: 94 Oxygen Delivery Method: Room Air Assessment Airway patent: Yes Spontaneous unlabored respirations: Yes Mental status: Awake and Calm nausea: No Vomiting: No Anesthesia Complication: No Fluid Hydration Crystalloid volume administer (ml): 900 Total IV fluid infused: 900 Progress Note Anesthesia document: Postop Eval 1 completed: Yes
--- NOTE | 2024-12-19 14:16 | RAD_ITS ---
PROCEDURE: FOOT 2 VIEWS 12/19/2024 REASON FOR EXAM: OSTEOTOMY RIGHT 5TH METATARSAL TECHNIQUE: Procedure Code: RADFO2 Modality: DX Procedure: FOOT 2 VIEWS Laterality: Right Total radiation exposure time: 51 seconds. Total DAP: 5.95 cGy cm2. Total air kerma: 0.35 mGy. COMPARISON: Intraoperative images on 12/19/2024. FINDINGS: Intraoperative fluoroscopic images. Osteotomy of the right 5th metatarsal bone. RAD/Foot 2 Views IMPRESSION: Intraoperative fluoroscopic images. Osteotomy of the 5th metatarsal bone. [facility]
--- NOTE | 2024-12-20 12:14 | POSTOPAN2_ITS ---
Anesthesia Postop Eval I Sum Postop Eval Completion status Anesthesia document: Postop Eval 1 completed: Yes Anesthesia Postop Eval I Summary Anesthesia Postop Eval I Summary: Anesthesia Postop Eval I: Assessment Summary Airway patent Yes 12/19/24 14:02 [email or web address] Spontaneous unlabored Yes 12/19/24 14:02 HEALTH [email or web address] respirations Mental status Awake,Calm 12/19/24 14:02 HEALTH MANAGER.OT nausea No 12/19/24 14:02 HEALTH MANAGER.OT Vomiting No 12/19/24 14:02 HEALTH [email or web address] Anesthesia Postop Eval I: Fluid Summary Crystalloid volume administer 900 12/19/24 14:02 HEALTH MANAGER.MDOT (ml) Colloids volume administered ( ml) Blood Product volume administered (ml) Total IV fluid infused 900 12/19/24 14:02 HEALTH [email or web address] Anesthesia Postop Eval I: Summary Notes Anesthesia Complication No 12/19/24 14:02 HEALTH [email or web address] Anesthesia Complication Comment: Post-operative progress note Anesthesia: Postop Eval II Evaluation Mental status: Awake and Calm Pain Level: 1 nausea: No Vomiting: No Complications Anesthesia Complication: No
--- NOTE | 2024-12-20 12:14 | PCM.POSTANE2 ---
Anesthesia Postop Eval I Sum Postop Eval Completion status Anesthesia document: Postop Eval 1 completed: Yes Anesthesia Postop Eval I Summary Anesthesia Postop Eval I Summary: Anesthesia Postop Eval I: Assessment Summary Airway patent Yes 12/19/24 14:02 TELEPHOTO [email or web address] Spontaneous unlabored Yes 12/19/24 14:02 TELEPHOTO [email or web address] respirations Mental status Awake,Calm 12/19/24 14:02 TELEPHOTO [email or web address].OT nausea No 12/19/24 14:02 TELEPHOTO ENGINEER.OT Vomiting No 12/19/24 14:02 TELEPHOTO [email or web address] Anesthesia Postop Eval I: Fluid Summary Crystalloid volume administer 900 12/19/24 14:02 TELEPHOTO [email or web address].MDOT (ml) Colloids volume administered ( ml) Blood Product volume administered (ml) Total IV fluid infused 900 12/19/24 14:02 TELEPHOTO [email or web address] Anesthesia Postop Eval I: Summary Notes Anesthesia Complication No 12/19/24 14:02 TELEPHOTO [email or web address] Anesthesia Complication Comment: Post-operative progress note Anesthesia: Postop Eval II Evaluation Mental status: Awake and Calm Pain Level: 1 nausea: No Vomiting: No Complications Anesthesia Complication: No
== END 2024-12-19 15:47 | disposition home or self-care (01) ==
LOC: SDC 10:19 → AC 10:20
PROVIDERS: PCP Family Medicine Geriatric Medicine; Referring Provider Podiatrist Foot & Ankle Surgery; Visit Provider Podiatrist Foot & Ankle Surgery
PROC: (CPT 28292; principal; 2024-12-19 12:00)
DX: E11.621 Type 2 diabetes mellitus with foot ulcer (principal); L97.524 Non-pressure chronic ulcer of other part of left foot with necrosis of bone; L97.512 Non-pressure chronic ulcer of other part of right foot with fat layer exposed; I50.30 Unspecified diastolic (congestive) heart failure; I11.0 Hypertensive heart disease with heart failure; J44.9 Chronic obstructive pulmonary disease, unspecified; I48.91 Unspecified atrial fibrillation; E11.42 Type 2 diabetes mellitus with diabetic polyneuropathy; E11.51 Type 2 diabetes mellitus with diabetic peripheral angiopathy without gangrene; M19.071 Primary osteoarthritis, right ankle and foot; K21.9 Gastro-esophageal reflux disease without esophagitis; E55.9 Vitamin D deficiency, unspecified; E78.5 Hyperlipidemia, unspecified; M10.9 Gout, unspecified; N40.0 Benign prostatic hyperplasia without lower urinary tract symptoms; I25.2 Old myocardial infarction; I25.10 Atherosclerotic heart disease of native coronary artery without angina pectoris; G25.81 Restless legs syndrome; G47.33 Obstructive sleep apnea (adult) (pediatric); Z79.02 Long term (current) use of antithrombotics/antiplatelets; Z86.73 Personal history of transient ischemic attack (TIA), and cerebral infarction without residual deficits; Z79.82 Long term (current) use of aspirin; Z79.51 Long term (current) use of inhaled steroids; Z79.899 Other long term (current) drug therapy; Z87.891 Personal history of nicotine dependence; Z86.718 Personal history of other venous thrombosis and embolism
CPT/HCPCS: 28308; 28005; 14040; 11042; 01480; 36415; 73620; 76000; 82306; 83036; 87015; 87070; 87075; 87077; 87102; 87116; 87176; 87186; 87205; 87206; 88305; 88311; J2405

== ENCOUNTER 2024-12-24 08:31 | Outpatient (RCR) | payer MEDICARE, OTHER, SELFPAY ==
[2024-12-24 08:52] VITALS: BP 153/79; PULSE 53; RESP 18; TEMP 36.3
--- NOTE | 2024-12-24 09:38 | PCM.WC.PN ---
History of Present Illness Date of Service: 12/24/24 Chief Complaint: Diabetic ulceration of the left great toe History of Wound: The patient is seen on behalf of Dr. Nathen Gonzalez, Podiatric specialist, who is the patient's regular Wound Center provider. Patient's history has been previously documented by Dr. Gonzalez. He is under treatment for an ulceration of the plantar aspect of the left great toe. He is a known diabetic, and has a history of myocardial infarction and congestive heart failure. He denies a history of cerebrovascular accident, pulmonary disease, renal disease, thyroid disease, and hyperlipidemia. The patient is not currently a smoker, but formerly smoked 1 pack of cigarettes per day for approximately 45 years. 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 He has a history of peripheral arterial occlusive disease, and indicates that 2 vascular stents have been placed in his right lower extremity, and 1 in his left lower extremity. The patient is ambulatory, but suffers from classic symptoms of intermittent claudication at short distances of ambulation. With 2 blocks of ambulation, the patient experiences calf pain, which is typically relieved by rest. Current management involves the use of Betadine topically to his left great toe ulceration. Progress of Wound: Healed full-thickness wounds of bilateral lower extremity secondary to surgical intervention. Subjective Subjective Patient is a 79-year-old diabetic male presenting to wound care center today for status post minimally invasive dorsiflexor osteotomy to the fifth metatarsal with delayed primary closure to the right foot and incision bone cortex with advancement flap closure to the left foot full-thickness wound at the level of the hallux. Patient is approximately 5 days postop. He has left the postoperative dressing clean dry and intact. He has no pain. He is minimally weightbearing. He is elevating as discussed. He denies trauma. Denies constitutional symptoms. No other pedal complaints at this time. Objective Data Objective Data Vital Signs: Vital Signs Temp Pulse Resp BP O2 Del Method 97.4 F L 53 L 18 153/79 H Room Air 12/24/24 08:52 12/24/24 08:52 12/24/24 08:52 12/24/24 08:52 12/24/24 08:52 Oxygen Delivery Method Room Air Physical Exam Narrative Vascular: DP and PT pulses palpable. CFT brisk. No erythema or proximal streaking. Skin temperature is warm to warm with no focal increase. Blanchable erythema left foot. Neurologic: Light touch is intact. Protective sensation is absent. Dermatologic: The incision to the dorsal of the right foot is well coapted with suture and the full-thickness wound is well coapted with suture plantarly at the level of the subfifth metatarsal head right foot. No evidence of surgical wound dehiscence erythema drainage or concern for infection. The advancement flap closure to the left foot hallux amputation site is well coapted with suture. Blanchable erythema is appreciated with no concern of infection or wound dehiscence. Musculoskeletal: No pain to palpation to all incisions to the bilateral lower extremity. No pain with calf compression. Debridement Note Debridement Note Post-Debridement Measurements and Additional Note: Post-Debridement Measurements/Treatment [facility] Nurse 1 - General Ulcer Assessment Start: 12/24/24 08:51 Freq: Status: Active Protocol: YOUNG Activity Type Activity Date Activity User E-sign Co-sign Detail Recorded Client Recorded Date Recorded By Document 12/24/24 08:52 KS [id number] 12/24/24 09:09 KS 12/24/24 08:52 [facility] Today's Visit Information Type of service Follow-up Visit (Physician/CRYSTAL GAZER ) Arrival Mode Ambulatory Accompanied by Patient Identification Verified (Name & Yes ) Safety Precautions Fall Prevention Vital Signs Temperature (97.8 F-99.1 F) 97.4 F L Temperature Source Temporal Pulse Rate (60-100) 53 L Pulse Location Monitor Respiratory Rate (12-18) 18 Respiratory rate source Monitor Oxygen Delivery Method Room Air Blood Pressure (90/60-120/80) 153/79 H Blood Pressure Mean (mm Hg) 103 Source Monitor Position Semi-Fowlers Blood Pressure Location Left Arm History Since Last Visit- (Skip if this is Patient's initial visit) Has dressing in place as prescribed Yes Has compression in place as prescribed Yes Has offloadiing in place as prescribed Yes Experienced any changes in pain level or Yes management Left Footwear Regular Shoe Right Footwear Regular Shoe Pain Scale: 0-10 Numeric Is Patient Pain Free? Yes [facility] Nurse 1 - General Ulcer Measurement Start: 12/24/24 08:51 Freq: Status: Active Protocol: Activity Type Activity Date Activity User E-sign Co-sign Detail Recorded Client Recorded Date Recorded By Document 12/24/24 08:52 KS [id number] 12/24/24 09:09 KS 12/24/24 08:52 Wound Center Nurse 1 #2 L Grt Toe Plantar -Current Size (cm) - Length 0.1 -Current Size (cm) - Width 0.1 -Current Size (cm) - Depth 0.1 -Total Square Cm 0.01 -Change in Wound Grade/Stage No -Exudate Amt None Present -Texture (Pat-wound Skin Appearance) Assessed -Moisture (Pat-wound Skin Appearance) Assessed -Color (Pat-wound Skin Appearance) Assessed -Temperature (Pat-wound Skin No Abnormality Appearance) (Pt Warm) -Tenderness on Palpation (Pat-wound No Skin Appearance) -Ulcer Cleansing Soap and Water -Wound Comment(s) sutures Right lateral plantar -Current Size (cm) - Length 0.1 -Current Size (cm) - Width 0.1 -Current Size (cm) - Depth 0.1 -Total Square Cm 0.01 -Photo Taken No -Tunneling No -Undermining/Tunneling No -Circular Undermining No -Exudate Amt None Present -Wound Margin Flat & Intact -Granulation Quality N/A -Slough/Fibrin No -Texture (Pat-wound Skin Appearance) Assessed -Moisture (Pat-wound Skin Appearance) Assessed -Color (Pat-wound Skin Appearance) Assessed -Temperature (Pat-wound Skin No Abnormality Appearance) (Pt Warm) -Tenderness on Palpation (Pat-wound No Skin Appearance) -Ulcer Cleansing Soap and Water -Foul Odor after Cleansing No -Wound Comment(s) sutures Lower Limb Edema Present NA WC - Nurse 2 - General Ulcer CM Notes Start: 12/24/24 08:51 Freq: Status: Active Protocol: Activity Type Activity Date Activity User E-sign Co-sign Detail Recorded Client Recorded Date Recorded By Document 12/24/24 09:20 [id number] 12/24/24 09:21 12/24/24 09:20 Wound Center Nurse 2 #2 L Grt Toe Plantar -Correct Patient Yes -Correct Side, Site, Position No -Correct Procedure No -Type of Procedure Debridement -Post Debridement (cm) - Length 0 -Post Debridement (cm) - Width 0 -Post Debridement (cm) - Depth 0 -Total Square (Post) (cm) 0 -Area of Debridement (cm) - Length 0 -Area of Debridement (cm) - Width 0 -Total Square (Area) (cm) 0 -Wound/Ulcer Outcome Amputation Anticipated Right lateral plantar -Correct Patient Yes -Correct Side, Site, Position No -Correct Procedure No -Type of Procedure Debridement -Post Debridement (cm) - Length 0 -Post Debridement (cm) - Width 0 -Post Debridement (cm) - Depth 0 -Total Square (Post) (cm) 0 -Area of Debridement (cm) - Length 0 -Area of Debridement (cm) - Width 0 -Total Square (Area) (cm) 0 -Wound/Ulcer Outcome Healed- Surgical Closure Pain Scale: 0-10 Numeric Is Patient Pain Free? Yes - Nurse 3 - General Ulcer D/C NN Start: 12/24/24 08:51 Freq: Status: Active Protocol: Activity Type Activity Date Activity User E-sign Co-sign Detail Recorded Client Recorded Date Recorded By Document 12/24/24 09:21 JEANNA [id number] 12/24/24 09:22 JEANNA 12/24/24 09:21 Is Patient Pain Free? Yes WC - Visit Discharge Discharge Condition Stable Ambulatory Status Ambulatory Transportation Private Auto Accompanied by Medication Reconcilliation completed & Yes provided to patient/care provider Clinical Summary of Care Provided Yes Notes: ADAPTIC/ BETADINE TO BOTH SURGICAL SITES. COVER WITH GAUZE/ UNDERCASTING/ KERLIX AND ENRIKE TO BILATERAL LEGS AND FEET. Assessment/Plan Assessment/Plan (1) Non-pressure chronic ulcer of other part of left foot with fat layer exposed: CODE(S): L97.522 - Non-pressure chronic ulcer of other part of left foot with fat layer exposed PLAN: Patient was examined and evaluated. All findings were discussed with the patient. All questions were answered to the patient's satisfaction. After examination the patient is doing well after his status post bilateral foot surgery. All incisions to the bilateral lower extremity were dressed with Betadine soaked Adaptic, dry sterile dressing and a single layer Helm compression bandage was donned to the bilateral lower extremity. Patient will leave the dressing clean dry and intact. He will continue strict blood sugar control. He will continue [place] therapy as well as elevation to the bilateral lower extremity. I did give the okay for the patient to self drive to clinic next week as long as he is losing the surgical shoe which she is understanding of. Patient will reach out with any question or concerns. At this time since the patient's wounds are all coapted and healed after surgery he will be discharged from the wound care center and will follow-up in private office for further evaluation and treatment. (2) Acute painful diabetic polyneuropathy: CODE(S): E11.42 - Type 2 diabetes mellitus with diabetic polyneuropathy (3) Non-pressure chronic ulcer of other part of right foot with fat layer exposed: CODE(S): L97.512 - Non-pressure chronic ulcer of other part of right foot with fat layer exposed
== END 2024-12-25 09:09 | disposition home or self-care (01) ==
LOC: WC 08:31
PROVIDERS: PCP Family Medicine Geriatric Medicine; Visit Provider Podiatrist Foot & Ankle Surgery
DX: E11.621 Type 2 diabetes mellitus with foot ulcer (principal); L97.522 Non-pressure chronic ulcer of other part of left foot with fat layer exposed; L97.512 Non-pressure chronic ulcer of other part of right foot with fat layer exposed; E11.42 Type 2 diabetes mellitus with diabetic polyneuropathy; E11.51 Type 2 diabetes mellitus with diabetic peripheral angiopathy without gangrene; Z89.422 Acquired absence of other left toe(s); F17.210 Nicotine dependence, cigarettes, uncomplicated; I25.2 Old myocardial infarction
CPT/HCPCS: 99213; G0463

== ENCOUNTER → 2025-01-14 | Outpatient (CLI) | payer MEDICARE, OTHER, SELFPAY ==
[2025-01-14 10:56] LABS: Hematocrit 40.9 % (40-54); Hemoglobin 13.9 g/dL (13.0-16.5); Immature Granulocytes Count 0.020 X10^3/uL (0.0-0.0); Mean Corp Hgb Conc 34.0 g/dL (32-36); Mean Corpuscular Volume 91.1 fL (80-94); Mean Platelet Vol. 10.7 fl (6.2-12.0); NRBC Flagged by Analyzer 0 % (0-5); Platelet Count 151 K/mm3 (150-450); RBC Distribution Width CV 13.7 % (11.6-14.6); RBC Distribution Width SD 45.9 fl (35.1-43.9); Red Blood Count 4.49 M/mm3 (4.6-6.2); White Blood Count 5.9 K/mm3 (4.4-11.0)
[2025-01-14 11:41] LABS: AST(SGOT) 20 U/L (<=37); Alanine Aminotransfer ALT/SGPT 15 U/L (<=46); Albumin, Serum 4.1 g/dL (3.4-4.8); Alkaline Phosphatase 113 U/L (40-129); Anion Gap 10 (5-15); BUN 20 mg/dL (4-19); BUN/Creat Ratio 14.9 RATIO (10-20); Calcium,Total 9.7 mg/dL (7.6-11.0); Carbon Dioxide 24.6 mmol/L (21.0-32.0); Chloride 105 mmol/L (98-108); Globulin 3.2 g/dL (2.2-4.2); Glucose 106 mg/dL (70-99); Potassium 5.4 mmol/L (3.3-5.1)
== END | disposition home or self-care (01) ==
LOC: LAB 10:16
PROVIDERS: PCP Family Medicine Geriatric Medicine
DX: C32.9 Malignant neoplasm of larynx, unspecified (principal); Z92.3 Personal history of irradiation; R49.0 Dysphonia; Z87.891 Personal history of nicotine dependence; Q31.9 Congenital malformation of larynx, unspecified; J37.0 Chronic laryngitis; R79.9 Abnormal finding of blood chemistry, unspecified
CPT/HCPCS: 36415; 80053; 83036; 84439; 84443; 85025

== ENCOUNTER → 2025-01-30 | Outpatient (CLI) | payer MEDICARE, OTHER, SELFPAY ==
[2025-01-30 12:06] LABS: Hematocrit 42.2 % (40-54); Hemoglobin 14.0 g/dL (13.0-16.5); Immature Granulocytes Count 0.040 X10^3/uL (0.0-0.0); Mean Corp Hgb Conc 33.2 g/dL (32-36); Mean Corpuscular Volume 92.1 fL (80-94); Mean Platelet Vol. 11.0 fl (6.2-12.0); NRBC Flagged by Analyzer 0 % (0-5); Platelet Count 163 K/mm3 (150-450); RBC Distribution Width CV 14.0 % (11.6-14.6); RBC Distribution Width SD 47.5 fl (35.1-43.9); Red Blood Count 4.58 M/mm3 (4.6-6.2); White Blood Count 8.0 K/mm3 (4.4-11.0)
[2025-01-30 12:17] LABS: AST(SGOT) 21 U/L (<=37); Alanine Aminotransfer ALT/SGPT 14 U/L (<=46); Albumin, Serum 4.2 g/dL (3.4-4.8); Alkaline Phosphatase 118 U/L (40-129); Anion Gap 11 (5-15); BUN 26 mg/dL (4-19); BUN/Creat Ratio 15.8 RATIO (10-20); Calcium,Total 9.5 mg/dL (7.6-11.0); Carbon Dioxide 24.4 mmol/L (21.0-32.0); Chloride 102 mmol/L (98-108); Globulin 3.0 g/dL (2.2-4.2); Glucose 94 mg/dL (70-99); Potassium 5.4 mmol/L (3.3-5.1); Uric Acid 5.3 mg/dL (3.5-7.2)
== END | disposition home or self-care (01) ==
LOC: LAB 11:22
PROVIDERS: PCP Family Medicine Geriatric Medicine; Referring Provider Family Medicine Geriatric Medicine; Visit Provider Family Medicine Geriatric Medicine
DX: M10.9 Gout, unspecified (principal); I10 Essential (primary) hypertension
CPT/HCPCS: 36415; 80053; 84550; 85025